=== PATIENT | male | born 1945 | race African-American/Black ===

== ENCOUNTER 2018-10-27 03:41 | Inpatient (IN) | payer MEDICARE, MEDICAID ==
[~2018-10-27] VITALS: Ht 185.4 cm; Wt 127.5 kg
[~2018-10-27 03:41] MED LIST: AMBIEN10 M1 ORAL; AMLODIPINE BESY10 MG; AMLODIPINE BESY10 MG ORAL; ASPIRIN EC81 MG; ASPIRIN-LOW81 MG ORAL; ATENOLOL100 MG; ATENOLOL25 MG ORAL; CARAFATE1 G1 ORAL; CYCLOBENZAPRINE10 MG ORAL; DEPAKOTE500 MG PO; DOC-Q-LACE100 M1; FLEXERIL10 MG PO; HYDROCODON-ACE1 EA16; HYTRIN1 MG; LYRICA25 MG ORAL; NATEGLINIDE60 MG; NEURONTIN100 MG ORAL; NEXIUM 24HR20 MG PO; NORCO 5-325 TA1 EAC1 ORAL; OMEPRAZOLE20 M2; PROTONIX40 MG ORAL; SEROQUEL25 MG ORAL; SIMVASTATIN20 MG; TENORMIN50 MG ORAL; TRAMADOL HCL50 MG; TRAMADOL HCL50 MG ORAL; UNOBMED; VITAMIN D1000 UNI1 ORAL; WELLBUTRIN XL150 M3 ORAL; ZOLPIDEM TARTRAT5 MG
[2018-10-27 03:45] VITALS: BP 132/82
--- NOTE | 2018-10-27 03:45 | NUR ---
ED Nurse Note: Patient virginia GORE from home c/o lower left groin pain that he rates 10/10 pain, states that this has been an on going issue for the past week, at time of arrival patient is already askign for pain medicine. patient was placed on a monitor and EKG did show a-fib with RVR. patient's rectal temp of 103.1, Dr. Parrish aware and notified. patient states that he is not able to to receive any motrin or tylenol due to the reactions that he gets. patient is alert and oriented x4, skin is intact IV started on left forearm 20 gauge
--- NOTE | 2018-10-27 03:50 | NUR ---
ED Nurse Note: Placed ice packs on patient
[2018-10-27] MEDS ORDERED: fentaNYL 100 mcg/2 mL IV ONE (04:00)
[2018-10-27] MEDS ORDERED: Isovue-370 150ml vial INJ PRN (04:00)
--- NOTE | 2018-10-27 04:03 | Emergency Room Report ---
History of Present Illness General Chief Complaint: Chest Pain Source: Patient Present Illness HPI 73-year-old male history of thoracic aneurysm repair history of hypertension, hyperlipidemia, CVA diabetes, drug-seeking behavior presents with sharp chest pain, abdominal pain right groin pain, patient states he cannot stand today due to the pain, patient was taking tramadol, he denies any shortness of breath, patient not able to give a proper history and regards to what kind of pain he has, he denies any fevers cough congestion, dysuria. Allergies: Coded Allergies: MORPHINE (Verified Allergy, Severe, 11/07/10) NITROGLYCERIN (Verified Allergy, Severe, 11/07/10) KETOROLAC (Unverified Allergy, Intermediate, 03/14/14) FISH CONTAINING PRODUCTS (Verified Allergy, Mild, 07/20/14) per patient, "it knocks me out" ACETAMINOPHEN (Unverified Allergy, Unknown, 07/19/14) CODEINE (Unverified Allergy, Unknown, 11/03/13) UNKNOWN DIPHENHYDRAMINE (Unverified Allergy, Unknown, 09/30/14) IBUPROFEN (Unverified Allergy, Unknown, 11/03/13) UNKNOWN PROCHLORPERAZINE (Unverified Allergy, Unknown, 07/19/14) GABAPENTIN (Verified Adverse Reaction, Intermediate, 07/20/14) Per patient, it makes him sweat, throws up, and "blacks out" Patient History Past Medical History: see triage record Reviewed Nursing Documentation: PMH: Agreed; PSxH: Agreed Nursing Documentation-PMH Past Medical History: No History, Except For Hx Hypertension: Yes Hx Pacemaker: No Hx Asthma: No Hx COPD: No Hx Diabetes: Yes Hx Cancer: No Hx Gastrointestinal Problems: No Hx Dialysis: No Hx Neurological Problems: No Hx Cerebrovascular Accident: Yes Hx Transient Ischemic Attacks: No Hx Dementia: No Hx Alzheimer's Disease: No Hx Parkinson's Disease: No Hx Meningitis: No Hx Encephalitis: No Hx Seizures: No Hx Epilepsy: No Hx Multiple Sclerosis: No Hx Cerebral Palsy: No Hx Amyotrophic Lat Sclerosis: No Hx Guillian-Dearborn Syndrome: No Hx Paralysis: No Hx Peripheral Neuropathy: No Hx Spinal Cord Injury: No Hx Head Trauma: No Hx Traumatic Brain Injury: No Hx Memory Loss: No Hx Concentration Difficulty: No Hx Speech Problem: No Hx Tremors: No Hx Vertigo: No Hx Dizziness: No Hx Syncope: No Hx Headaches: No Hx Aphasia: No Hx Dysphasia: No Hx Numbness: No Hx Weakness: No Hx Fatigue: No Hx Neurologic Surgery: No Hx Brain Shunt: No Review of Systems All Other Systems: negative except mentioned in HPI Physical Exam Vital Signs Date Time Temp Pulse Resp B/P (MAP) Pulse Ox O2 Delivery O2 Flow Rate FiO2 10/27/18 03:40 100.2 92 18 132/82 (99) 96 Room Air Sp02 EP Interpretation: reviewed, normal General Appearance: well appearing, no apparent distress, alert Head: normocephalic, atraumatic Eyes: bilateral eye PERRL, bilateral eye EOMI ENT: uvula midline, moist mucus membranes Neck: supple, thyroid normal, supple/symm/no masses Respiratory: lungs clear, no respiratory distress, no retraction, no accessory muscle use Cardiovascular #1: normal peripheral pulses, no edema, no gallop, no murmur, tachycardia, irregularly irregular Gastrointestinal: non tender, soft, no guarding, no rebound Musculoskeletal: normal inspection Neurologic: alert, oriented x3 Psychiatric: mood/affect normal Skin: no rash, warm/dry Procedures Critical Care Time Critical Care Time Given the critical condition in which the patient arrived, the patient was immediately assessed by myself and the nurse, and cardiac monitoring initiated due to the potential for rapid decompensation of the patient's clinical condition. During the course of the patient's stay, I spent a considerable amount of time at the bedside performing serial re-evaluations of the patient's hemodynamic and clinical status because of the recognized potential threat to life or limb in this condition. I then had a chance to review not only all of the available current laboratory and radiographic studies obtained today, but I also reviewed old records available to me at the time. Additionally, any ancillary information available including regenerator operator records were reviewed. Sequential vital signs were obtained. Patient with sepsis requiring fluid resuscitation and broad-spectrum antibiotics , patient also with elevated troponin aspirin given Critical Care time of 37 minutes was performed exclusive of billable procedures. Medical Decision Making Diagnostic Impression: Primary Impression: UTI (urinary tract infection) Qualified Codes: N30.00 - Acute cystitis without hematuria Additional Impressions: Sepsis Qualified Codes: A41.9 - Sepsis, unspecified organism Lactic acid acidosis NSTEMI (non-ST elevated myocardial infarction) Chest pain Qualified Codes: R07.9 - Chest pain, unspecified ER Course Patient found to be febrile in the ED, and tachycardic. Sepsis work-up was initiated, patient is a poor historian, difficult to ascertain whether he is having cardiac chest pain versus ACS, however patient has been pain for 24 hours straight, his first troponin is negative low suspicion for ACS, will obtain CTA abdomen and pelvis as well as chest to evaluate for intrathoracic and intra-abdominal pathology, patient does have a history of thoracic aneurysm repair however he also is known to have drug-seeking behavior. Patient is not requesting any particular pain medication at this moment. Patient looks uncomfortable, will evaluate for possible sepsis versus pneumonia versus ACS versus urosepsis. Troponin elevated aspirin given, most likely demand ischemia in the setting of heart disease. Patient with positive UTI, will treat for urosepsis, patient will be admitted to stepdown for elevated lactic acid, fluid resuscitation, cefepime vancomycin given, patient is allergic to Tylenol Laboratory Tests Test 10/27/18 03:52 10/27/18 04:05 10/27/18 05:20 White Blood Count 11.8 K/UL (4.8-10.8) H Red Blood Count 4.66 M/UL (4.70-6.10) L Hemoglobin 14.5 G/DL (14.2-18.0) Hematocrit 42.6 % (42.0-52.0) Mean Corpuscular Volume 91 FL (80-99) Mean Corpuscular Hemoglobin 31.0 PG (27.0-31.0) Mean Corpuscular Hemoglobin Concent 33.9 G/DL (32.0-36.0) Red Cell Distribution Width 11.9 % (11.6-14.8) Platelet Count 110 K/UL (150-450) L Mean Platelet Volume 7.8 FL (6.5-10.1) Neutrophils (%) (Auto) 77.7 % (45.0-75.0) H Lymphocytes (%) (Auto) 7.3 % (20.0-45.0) L Monocytes (%) (Auto) 14.3 % (1.0-10.0) H Eosinophils (%) (Auto) 0.0 % (0.0-3.0) Basophils (%) (Auto) 0.7 % (0.0-2.0) Prothrombin Time 11.8 SEC (9.30-11.50) H Prothrombin Time INR 1.1 (0.9-1.1) PTT 37 SEC (23-33) H Sodium Level 134 MMOL/L (136-145) L Potassium Level 3.8 MMOL/L (3.5-5.1) Chloride Level 100 MMOL/L (98-107) Carbon Dioxide Level 23 MMOL/L (21-32) Anion Gap 11 mmol/L (5-15) Blood Urea Nitrogen 20 mg/dL (7-18) H Creatinine 1.5 MG/DL (0.55-1.30) H Estimate Glomerular Filtration Rate mL/min (>60) Glucose Level 160 MG/DL (74-106) H Lactic Acid Level 2.50 mmol/L (0.4-2.0) H 2.90 mmol/L (0.66-2.22) H Calcium Level 9.3 MG/DL (8.5-10.1) Phosphorus Level 1.6 MG/DL (2.5-4.9) L Magnesium Level 1.6 MG/DL (1.8-2.4) L Total Bilirubin 3.7 MG/DL (0.2-1.0) H Direct Bilirubin 0.8 MG/DL (0.0-0.3) H Aspartate Amino Transferase (AST) 64 U/L (15-37) H Alanine Aminotransferase (ALT) 71 U/L (12-78) Alkaline Phosphatase 75 U/L (46-116) Total Creatine Kinase 363 U/L (26-308) H Creatine Kinase MB 1.2 NG/ML (0.0-3.6) Creatine Kinase MB Relative Index 0.3 Troponin I 0.151 ng/mL (0.000-0.056) Pro-B-Type Natriuretic Peptide 1197 pg/mL (0-125) H Total Protein 7.4 G/DL (6.4-8.2) Albumin 3.4 G/DL (3.4-5.0) Globulin 4.0 g/dL Albumin/Globulin Ratio 0.9 (1.0-2.7) L Lipase 63 U/L (73-393) L Urine Color Yellow Urine Appearance Slightly cloudy Urine pH 5 (4.5-8.0) Urine Specific [place] 1.025 (1.005-1.035) Urine Protein 2+ (NEGATIVE) H Urine Glucose (UA) Negative (NEGATIVE) Urine Ketones 1+ (NEGATIVE) H Urine Blood 4+ (NEGATIVE) H Urine Nitrite Positive (NEGATIVE) H Urine Bilirubin 1+ (NEGATIVE) H Urine Ictotest Positive (NEGATIVE) Urine Urobilinogen 8 MG/DL (0.0-1.0) H Urine Leukocyte Esterase 1+ (NEGATIVE) H Urine RBC 5-10 /HPF (0 - 0) H Urine WBC 0-2 /HPF (0 - 0) Urine Squamous Epithelial Cells None /LPF (NONE/OCC) Urine Bacteria None /HPF (NONE) Microbiology Date/Time Source Procedure Growth Status 10/27/18 04:15 Nasal Nares - Final Complete 10/27/18 04:15 Nasal Nares - Final Complete EKG Diagnostic Results EKG Time: 03:51 EP Interpretation: Atrial fibrillation, rate 108, QTc 455, no acute ST elevations, left axis Rate: tachycardiac Rhythm: other - Atrial fibrillation ST Segments: other - Flipped T waves 1 aVL Rhythm Strip Diag. Results Rhythm Strip Time: 04:09 EP Interpretation: yes Rate: 98 Rhythm: other - Atrial fibrillation Chest X-Ray Diagnostic Results Chest X-Ray Diagnostic Results : Chest X-Ray Ordered: Yes # of Views/Limited/Complete: 1 View Indication: Chest Pain EP Interpretation: Yes Interpretation: no acute cardiopulmonary disease, other - Comparison unchanged Impression: No acute disease Electronically Signed by: Nolberto Dodd MD CT/MRI/US Diagnostic Results CT/MRI/US Diagnostic Results : Impression Preliminary Findings Only See Final Report For Complete Findings CTA CHEST: Postsurgical changes from a tube graft repair of the ascending aorta. Trace adjacent fat stranding/scarring which is favored postsurgical. Status post endovascular stenting of the descending thoracic aortic aneurysm measuring 5.6 cm. No dissection or penetrating ulcer. No pulmonary embolism. Status post aortic valve replacement. The lungs are clear. No pleural effusion. CT ABDOMEN & PELVIS With Contrast: Note that the pelvis was excluded. Only the abdomen was imaged. Ectatic upper abdominal aorta which measures 3.7 cm prior to the celiac takeoff. No dissection. The branch vessels are widely patent. No acute process along the visualized GI tract. Normal appendix. Mild colonic diverticulosis without diverticulitis. No acute process in the solid organs. Radiologist: Diaz Camarillo MD Study ready at 06:31 and initial results transmitted at 06:41 Last Vital Signs Date Time Temp Pulse Resp B/P (MAP) Pulse Ox O2 Delivery O2 Flow Rate FiO2 10/27/18 03:40 100.2 92 18 132/82 (99) 96 Room Air Disposition: ADMITTED INPATIENT Condition: Stable Nolberto Dodd MD Oct 27, 2018 04:03
[2018-10-27 04:11] LABS: BASOPHILS % (AUTO) 0.7 % (0.0-2.0); HEMATOCRIT 42.6 % (42.0-52.0); HEMOGLOBIN 14.5 G/DL (14.2-18.0); LYMPHOCYTES % (AUTO) 7.3 % (20.0-45.0); MEAN CORPUSCULAR VOLUME 91 FL (80-99); MONOCYTES % (AUTO) 14.3 % (1.0-10.0); NEUTROPHILS % (AUTO) 77.7 % (45.0-75.0); PLATELET COUNT 110 K/UL (150-450); RED BLOOD COUNT 4.66 M/UL (4.70-6.10); RED CELL DISTRIBUTION WIDTH 11.9 % (11.6-14.8); WHITE BLOOD COUNT 11.8 K/UL (4.8-10.8)
[2018-10-27 04:14] LABS: APPEARANCE,URINE SLIGHTLY CLOUDY; BILIRUBIN, URINE 1+ (NEGATIVE); GLUCOSE, URINE (UA) NEGATIVE (NEGATIVE); KETONES,URINE 1+ (NEGATIVE); LEUKOCYTE ESTERASE ,URINE 1+ (NEGATIVE); NITRITE,URINE POSITIVE (NEGATIVE); PH,URINE 5 (4.5-8.0); PROTEIN,URINE 2+ (NEGATIVE); UROBILINOGEN,URINE 8 MG/DL (0.0-1.0)
[2018-10-27] MEDS ORDERED: Vancomycin 1.5 GM in NS 275 ML IVPB ONE (04:15)
[2018-10-27] MEDS ORDERED: Cefepime HCl 2 GM in D5W 55 ML IVPB ONE (04:15)
[2018-10-27 04:18] LABS: ANION GAP 11 mmol/L (5-15); BLOOD UREA NITROGEN 20 mg/dL (7-18); CALCIUM 9.3 MG/DL (8.5-10.1); CARBON DIOXIDE 23 MMOL/L (21-32); CHLORIDE 100 MMOL/L (98-107); CREATININE 1.5 MG/DL (0.55-1.30); INR 1.1 (0.9-1.1); POTASSIUM 3.8 MMOL/L (3.5-5.1); SODIUM 134 MMOL/L (136-145)
[2018-10-27 04:18] LABS: COLOR,URINE YELLOW
--- NOTE | 2018-10-27 04:30 | NUR ---
ED Nurse Note: Patient repeatedly asking for dilaudid, states that the fentanyl did not take effect
[2018-10-27 04:43] LABS: ALANINE AMINOTRANSFERASE 71 U/L (12-78); ALBUMIN 3.4 G/DL (3.4-5.0); ALBUMIN/GLOBULIN RATIO 0.9 (1.0-2.7); ALKALINE PHOSPHATASE 75 U/L (46-116); ASPARTATE AMINO TRANSFERASE 64 U/L (15-37); BILIRUBIN,TOTAL 3.7 MG/DL (0.2-1.0); CKMB 1.2 NG/ML (0.0-3.6); CREATINE KINASE 363 U/L (26-308); PHOSPHORUS 1.6 MG/DL (2.5-4.9)
[2018-10-27 04:49] LABS: BILIRUBIN,DIRECT 0.8 MG/DL (0.0-0.3)
[2018-10-27] MEDS ORDERED: Hydromorphone 0.5mg/0.5ml inj IVP ONE (05:30)
--- NOTE | 2018-10-27 05:30 | NUR ---
ED Nurse Note: Patient repeatedly asking for dilaudid, Dr. Dodd aware and notified
[2018-10-27 05:41] VITALS: BP 141/89
--- NOTE | 2018-10-27 05:41 | NUR ---
ED Nurse Note: Rectal temp of 102.5, Dr. Dodd aware and notified
--- NOTE | 2018-10-27 07:02 | Diagnostic Imaging Report ---
CLINICAL INDICATION: TECHNIQUE: IV administration nonionic contrast. Arterial phase and delayed venous phase spiral acquisitions obtained through the chest and abdomen. Multiplanar and 3-D reconstructions were generated. Total dose length product 2958 mGycm. CTDIvol(s) 12, 378, 33, 20 mGy. Radiation dose was minimized using automated exposure control Note that request was for CT of the chest, abdomen and pelvis. For uncertain reasons, the pelvis was not included in the imaging volume. Attempts were made recalling the patient but the patient had already left the emergency department COMPARISON: 03/14/2014 FINDINGS Chest: Contrast bolus quality is suboptimal; technologist reports injector malfunction. There is a thoracic aortic endograft extending from the arch just distal to the subclavian artery origin to the mid to distal thoracic aorta. Material surrounding the endograft appears similar to the prior exam, probably represents the residual of the excluded aneurysm. There is also evidence of prior surgical ascending thoracic aortic aneurysm repair as well as an aortic valve prosthesis. The ascending thoracic aorta is normal and unchanged in caliber. The grafted portion of the thoracic aorta appears dilated, more so than on the previous exam, measuring up to 5 cm in diameter, despite the presence of the endograft which appears to be intact. The caliber however appears to be similar to the prior study. Material seen surrounding the ascending thoracic aorta appears similar to the previous exam. No findings to suggest endoleak. There is normal anatomy of the great neck vessels, which appear patent and nonstenotic. The main pulmonary artery is dilated, measuring 4 cm in diameter. The left main pulmonary artery is also dilated, measuring 3.3 cm in diameter. The heart is borderline enlarged. The pulmonary arteries are insufficiently opacified to comment exclude pulmonary embolus. The lungs demonstrate generalized mild hazy parenchymal opacity. There is also centrilobular interstitial septal thickening in the upper lobes. Some scarring is also again demonstrated in the bilateral upper lobes. There is increased scarring in the inferomedial left upper lobe. No discrete consolidation. No masses or nodules. No pleural fluid is demonstrated. The heart size is upper limits of normal. No pericardial effusion. There are prominent but not frankly enlarged mediastinal nodes, unchanged from the prior exam. No axillary or chest wall mass or adenopathy. The included portion of the thyroid is unremarkable. Abdomen pelvis: No evidence of abdominal aortic aneurysm or dissection. Patent and nonstenotic abdominal visceral vessels. There is an accessory right renal artery. The liver is somewhat hypoattenuating, consistent with fatty change. There are multiple capsular calcifications. The gallbladder, bile ducts, pancreas, spleen, adrenals are unremarkable. The left kidney demonstrates an interpolar region cyst. The right kidney demonstrates subcentimeter low-attenuation lesions which are too small to characterize. No retroperitoneal or mesenteric mass or adenopathy. No bowel distention. No free or loculated intraperitoneal gas or fluid is evident. IMPRESSION: Somewhat limited exam due to lack of inclusion of the pelvis within the imaging volume Postsurgical changes, status post surgical repair of the ascending thoracic aorta, status post stent graft repair of descending thoracic aorta. No evidence of leakage for rupture No acute abnormality Dilated main and left main pulmonary artery, consistent with pulmonary arterial hypertension Mild hazy pulmonary opacity and centrilobular interstitial septal thickening in the upper lobes, could indicate mild pulmonary edema Fatty liver Incidental findings as noted, including hepatic capsular calcifications, left renal cysts, probable small right renal cysts This agrees with the preliminary interpretation provided overnight by [facility] teleradiology service. The CT scanner at [facility] is accredited by the [employer] and the scans are performed using protocols designed to limit radiation exposure to as low as reasonably achievable to attain images of sufficient resolution adequate for diagnostic evaluation.
--- NOTE | 2018-10-27 07:22 | NUR ---
HAND-OFF: Report given to Donnie Alexander RN.
--- NOTE | 2018-10-27 07:26 | NUR ---
ED Nurse Note: temp 99.2F oral noted.
[2018-10-27] MEDS ORDERED: ELIQUIS5 MG PO (07:31)
--- NOTE | 2018-10-27 07:33 | NUR ---
NURSE NOTES: Received report from Sandra BOLAND. pt will be admitted to room 239-2. A/Ox4 RA 103.1 down to 98.2, ambulatory. uses urinal Lt FA 20G. reflex lactic 2.90, trop 0.151. belongings remain with pt.
--- NOTE | 2018-10-27 07:38 | NUR ---
ED Nurse Note: report given to KRYSTIAN Harley.
--- NOTE | 2018-10-27 07:42 | NUR ---
ED Nurse Note: pt left unit with 1 pulmonary function technician and in RN in stable condition.
--- NOTE | 2018-10-27 07:45 | NUR ---
NURSE NOTES: Pt siting up in bed. Patient is awake and oriented x4. Patient HOB30 on RA sating 96%. BP 117/66, HR 102, TEMP 101.7 Lungs clear. no cough. Abdomen large round, hypoactive bowel sounds. no bm at this time. Pt NPO. pt uses urinal. IV site is Lt Ac 20g, patent and intact ns at 125ml/hr. pt c/o pain 10/10 at rupper ribs and right hip. requesting pain medication. Bed is locked, in lowest position, side rails up x3, bed alarm on, call light within reach.
[2018-10-27] MEDS ORDERED: Hydromorphone 0.5mg/0.5ml inj IVP PRN ×2 (09:36→10:30)
--- NOTE | 2018-10-27 09:54 | NUR ---
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
[2018-10-27] MEDS ORDERED: HYDROmorphone 1mg/ml Carpuject IVP PRN (10:22)
[2018-10-27] MEDS ORDERED: dilTIAZem HCl 25mg/5ml Inj IV PRN (10:45)
[2018-10-27] MEDS ORDERED: Enalaprilat 1.25mg/ml Inj IV PRN (10:45)
[2018-10-27] MEDS ORDERED: Albuterol/Ipratropium 3ml neb HHN PRN (10:45)
[2018-10-27] MEDS ORDERED: Miralax 17gm pkt ORAL PRN (10:45)
--- NOTE | 2018-10-27 10:50 | NUR ---
NURSE NOTES: here to do 2Decho
[2018-10-27] MEDS: HYDROmorphone 1mg/ml Carpuject IVP PRN ×3 (10:53→20:15)
--- NOTE | 2018-10-27 10:57 | Consultation ---
History of Present Illness General Date patient seen: Oct 27, 2018 Chief Complaint: Chest Pain Present Illness HPI 73 -year-old gentleman with extensive past medical history including CVA, open heart surgery, repair of aortic aneurysm, aortic valve replacement laminectomy, and left knee replacement. The patient presented to the emergency room complaining of episode of chest pain and right hip pain. Allergies: Coded Allergies: MORPHINE (Verified Allergy, Severe, 11/07/10) NITROGLYCERIN (Verified Allergy, Severe, 11/07/10) KETOROLAC (Unverified Allergy, Intermediate, 03/14/14) FISH CONTAINING PRODUCTS (Verified Allergy, Mild, 07/20/14) per patient, "it knocks me out" ACETAMINOPHEN (Unverified Allergy, Unknown, 07/19/14) CODEINE (Unverified Allergy, Unknown, 11/03/13) UNKNOWN DIPHENHYDRAMINE (Unverified Allergy, Unknown, 09/30/14) IBUPROFEN (Unverified Allergy, Unknown, 11/03/13) UNKNOWN PROCHLORPERAZINE (Unverified Allergy, Unknown, 07/19/14) GABAPENTIN (Verified Adverse Reaction, Intermediate, 07/20/14) Per patient, it makes him sweat, throws up, and "blacks out" Medication History Scheduled Amlodipine Besylate* (Amlodipine Besylate*), 10 MG ORAL DAILY, (Reported) Aspirin (Aspirin EC), 81 MG ORAL DAILY, (Reported) Atenolol* (Tenormin*), 50 MG ORAL BID Divalproex Sodium (Depakote), 500 MG PO BID Quetiapine Fumarate* (Seroquel*), 25 MG ORAL BID Scheduled PRN Tramadol Hcl* (Ultram*), 100 MG ORAL Q6H PRN for For Pain Zolpidem Tartrate* (Zolpidem Tartrate*), HS PRN for Insomnia, (Reported) Zolpidem Tartrate* (Ambien*), 10 MG ORAL HS PRN for Insomnia, (Reported) Miscellaneous Medications Apixaban (Eliquis), 5 MG PO, (Reported) Esomeprazole Magnesium (Nexium 24Hr), 20 MG PO, (Reported) Patient History Healthcare decision maker Resuscitation status Advanced Directive on File Past Medical/Surgical History Past Medical/Surgical History: (1) Aortic valve disorder (2) Cervical disc disorder w/myelopathy of dlmktatq-nizsned-zklaq region (3) Thalamic pain syndrome (4) CAD (coronary artery disease) (5) HTN (hypertension) (6) CVA (cerebral vascular accident) (7) 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 (8) S/P aortic valve replacement Review of Systems All Other Systems: negative except mentioned in HPI Physical Exam General Appearance: WD/WN Lines, tubes and drains: peripheral, central line HEENT: normocephalic, atraumatic Neck: non-tender, normal alignment Respiratory/Chest: chest wall non-tender, lungs clear Breasts: no masses Cardiovascular/Chest: normal peripheral pulses Abdomen: normal bowel sounds, non tender Genitourinary/Rectal: normal genital exam Extremities: normal range of motion, non-tender 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, no motor/sensory deficits Last 24 Hour Vital Signs Date Time Temp Pulse Resp B/P (MAP) Pulse Ox O2 Delivery O2 Flow Rate FiO2 10/27/18 07:42 99.2 98 18 116/82 Room Air 10/27/18 05:41 102.5 105 18 141/89 96 Room Air 10/27/18 04:31 102.5 10/27/18 04:31 102.5 10/27/18 03:45 92 18 Room Air 10/27/18 03:45 103.1 105 18 132/82 96 Room Air 10/27/18 03:40 100.2 92 18 132/82 (99) 96 Room Air Intake and Output 10/26/18 10/27/18 19:00 07:00 Intake Total 275 ml Balance 275 ml Intake IV Total 275 ml Laboratory Tests Test 10/27/18 03:52 10/27/18 04:05 10/27/18 05:20 White Blood Count 11.8 K/UL (4.8-10.8) H Red Blood Count 4.66 M/UL (4.70-6.10) L Hemoglobin 14.5 G/DL (14.2-18.0) Hematocrit 42.6 % (42.0-52.0) Mean Corpuscular Volume 91 FL (80-99) Mean Corpuscular Hemoglobin 31.0 PG (27.0-31.0) Mean Corpuscular Hemoglobin Concent 33.9 G/DL (32.0-36.0) Red Cell Distribution Width 11.9 % (11.6-14.8) Platelet Count 110 K/UL (150-450) L Mean Platelet Volume 7.8 FL (6.5-10.1) Neutrophils (%) (Auto) 77.7 % (45.0-75.0) H Lymphocytes (%) (Auto) 7.3 % (20.0-45.0) L Monocytes (%) (Auto) 14.3 % (1.0-10.0) H Eosinophils (%) (Auto) 0.0 % (0.0-3.0) Basophils (%) (Auto) 0.7 % (0.0-2.0) Prothrombin Time 11.8 SEC (9.30-11.50) H Prothromb Time International Ratio 1.1 (0.9-1.1) Activated Partial Thromboplast Time 37 SEC (23-33) H Sodium Level 134 MMOL/L (136-145) L Potassium Level 3.8 MMOL/L (3.5-5.1) Chloride Level 100 MMOL/L (98-107) Carbon Dioxide Level 23 MMOL/L (21-32) Anion Gap 11 mmol/L (5-15) Blood Urea Nitrogen 20 mg/dL (7-18) H Creatinine 1.5 MG/DL (0.55-1.30) H Estimat Glomerular Filtration Rate mL/min (>60) Glucose Level 160 MG/DL (74-106) H Lactic Acid Level 2.50 mmol/L (0.4-2.0) H 2.90 mmol/L (0.66-2.22) H Calcium Level 9.3 MG/DL (8.5-10.1) Phosphorus Level 1.6 MG/DL (2.5-4.9) L Magnesium Level 1.6 MG/DL (1.8-2.4) L Total Bilirubin 3.7 MG/DL (0.2-1.0) H Direct Bilirubin 0.8 MG/DL (0.0-0.3) H Aspartate Amino Transf (AST/SGOT) 64 U/L (15-37) H Alanine Aminotransferase (ALT/SGPT) 71 U/L (12-78) Alkaline Phosphatase 75 U/L (46-116) Total Creatine Kinase 363 U/L (26-308) H Creatine Kinase MB 1.2 NG/ML (0.0-3.6) Creatine Kinase MB Relative Index 0.3 Troponin I 0.151 ng/mL (0.000-0.056) Pro-B-Type Natriuretic Peptide 1197 pg/mL (0-125) H Total Protein 7.4 G/DL (6.4-8.2) Albumin 3.4 G/DL (3.4-5.0) Globulin 4.0 g/dL Albumin/Globulin Ratio 0.9 (1.0-2.7) L Lipase 63 U/L (73-393) L Urine Color Yellow Urine Appearance Slightly cloudy Urine pH 5 (4.5-8.0) Urine Specific [place] 1.025 (1.005-1.035) Urine Protein 2+ (NEGATIVE) H Urine Glucose (UA) Negative (NEGATIVE) Urine Ketones 1+ (NEGATIVE) H Urine Blood 4+ (NEGATIVE) H Urine Nitrite Positive (NEGATIVE) H Urine Bilirubin 1+ (NEGATIVE) H Urine Ictotest Positive (NEGATIVE) Urine Urobilinogen 8 MG/DL (0.0-1.0) H Urine Leukocyte Esterase 1+ (NEGATIVE) H Urine RBC 5-10 /HPF (0 - 0) H Urine WBC 0-2 /HPF (0 - 0) Urine Squamous Epithelial Cells None /LPF (NONE/OCC) Urine Bacteria None /HPF (NONE) Microbiology Date/Time Source Procedure Growth Status 10/27/18 04:15 Nasal Nares - Final Complete 10/27/18 04:15 Nasal Nares - Final Complete Height (Feet): 6 Height (Inches): 1.00 Weight (Pounds): 250 Medications Current Medications Medications (Trade) Dose Ordered Sig/Sheba Route PRN Reason Start Time Stop Time Status Last Admin Dose Admin Albuterol/ Ipratropium (Albuterol/ Ipratropium) 3 ml EVERY 4 HOURS PRN HHN Shortness of Breath 10/27/18 10:45 11/01/18 10:44 UNV Amlodipine Besylate (Norvasc) 10 mg DAILY ORAL 10/28/18 09:00 11/27/18 08:59 Apixaban (Eliquis) 5 mg BID ORAL 10/27/18 18:00 11/26/18 17:59 Atenolol (Tenormin) 50 mg BID ORAL 10/27/18 18:00 11/26/18 17:59 Diltiazem HCl (Cardizem) 10 mg EVERY HOUR PRN IV heart rate more than 120, 10/27/18 10:45 11/26/18 10:44 UNV Divalproex Sodium (Depakote) 500 mg Q12HR ORAL 10/27/18 21:00 11/26/18 20:59 Enalaprilat (Vasotec) 2.5 mg EVERY 6 HOURS PRN IV sbp more than 160 10/27/18 10:45 11/26/18 10:44 UNV Hydromorphone HCl (Dilaudid) 0.5 mg Q4H PRN IVP MODERATE PAIN 10/27/18 10:30 11/03/18 09:35 Hydromorphone HCl (Dilaudid) 1 mg Q4H PRN IVP SEVERE PAIN 10/27/18 10:30 11/03/18 10:21 Iopamidol (Isovue-370 150ml) 150 ml NOW PRN INJ Radiology Procedure 10/27/18 04:00 Ondansetron HCl (Zofran) 4 mg Q6H PRN IVP Nausea & Vomiting 10/27/18 10:45 11/26/18 10:44 UNV Polyethylene Glycol (Miralax) 17 gm DAILYPRN PRN ORAL Constipation 10/27/18 10:45 11/26/18 10:44 UNV Sodium Chloride 1,000 ml @ 125 mls/hr Q8H IV 10/27/18 06:15 11/26/18 06:14 10/27/18 07:15 Temazepam (Restoril) 15 mg HSPRN PRN ORAL Insomnia 10/27/18 10:45 11/03/18 10:44 UNV Assessment/Plan Problem List: (1) Acute coronary syndrome ICD Codes: I20.0 - Unstable angina SNOMED: 656577515 (2) HTN (hypertension) ICD Codes: I10 - HTN (hypertension) SNOMED: 48550357 (3) CAD (coronary artery disease) ICD Codes: I25.10 - Athscl heart disease of [place] coronary artery w/o ang pctrs SNOMED: 87493273 (4) Aortic valve disorder ICD Codes: I35.9 - Nonrheumatic aortic valve disorder, unspecified SNOMED: 5322407 (5) H/O aortic valve replacement ICD Codes: Z95.4 - H/O aortic valve replacement SNOMED: 082509281 (6) Thalamic pain syndrome ICD Codes: G89.0 - Thalamic pain syndrome SNOMED: 166568971 Assessment/Plan: serial ekg, troponin echo cardiogram cardiology to see MRI of L spine MRI of right hip continue Apixaban Melinda Rutledge MD Oct 27, 2018 10:57
--- NOTE | 2018-10-27 11:30 | NUR ---
NURSE NOTES: Received order from MD Rutledge to give ativan, Dilaudid 1x dose for MRI and off tele orders.
[2018-10-27] MEDS ORDERED: LORazepam Inj 2mg/ml 1ml IV SCH (11:45)
[2018-10-27] MEDS ORDERED: HYDROmorphone 1mg/ml Carpuject IVP SCH (11:45)
--- NOTE | 2018-10-27 12:00 | NUR ---
NURSE NOTES: Patient is awake and oriented x4. Patient HOB30 on RA sating 99%. BP 121/69, HR 76, TEMP 98.7 Lungs clear. no cough. Abdomen large round, hypoactive bowel sounds. no bm at this time. regular diet pt uses urinal. IV site is Lt Ac 20g, patent and intact ns at 125ml/hr. pt c/o pain 7/10 at rupper ribs and right hip. requesting pain medication. Bed is locked, in lowest position, side rails up x3, bed alarm on, call light within reach.
--- NOTE | 2018-10-27 12:10 | NUR ---
NURSE NOTES: pt off unit to MRI, premedicated, refused ativan
--- NOTE | 2018-10-27 13:47 | NUR ---
MRI RIGHT HIP COMPLETED. PT WAS TOO TIGHTLY SQUEEZED INTO BORE OF MRI SCANNER FOR MRI LUMBAR (PT IS VERY WIDE AND CAN'T BEND HIS ARMS STRAIGHT UP AND OUT) AND DID NOT WANT TO START EXAM. HE MAY TRY TO TOLERATE EXAM IF HE GETS VERY SEDATED, BUT HE REFUSES ATIVAN. TJB 13:50
--- NOTE | 2018-10-27 14:53 | History & Physical ---
History and Physical History & Physicial Tao Marcial MD Oct 27, 2018 14:53
--- NOTE | 2018-10-27 15:22 | Diagnostic Imaging Report ---
Indication: Chest pain for one day Technique: One view of the chest Comparison: 01/20/2016 Findings: Thoracic aortic endograft and median sternotomy sutures are again demonstrated. The heart is borderline enlarged. The lungs and pleural spaces are clear. Better inspiration currently Impression: Borderline cardiomegaly. Thoracic endograft again demonstrated No definite acute process
[2018-10-27] MEDS ORDERED: Vancomycin 1.5gm Premix IVPB SCH (16:00)
--- NOTE | 2018-10-27 16:00 | NUR ---
NURSE NOTES: Pt siting up in bed. Patient is awake and oriented x4. Patient HOB30 on RA sating 96%. BP 118/61, HR 70, TEMP 99.7. no bm at this time. IV site is Lt Ac 20g, patent and intact ns at 125ml/hr. would like to get some rest. Bed is locked. bed alarm on, call light within reach.
[2018-10-27] MEDS: Cefepime HCl 1 GM in D5W 55 ML IVPB SCH (16:05)
--- NOTE | 2018-10-27 16:30 | Diagnostic Imaging Report ---
Indication: Back pain Technique: 3 views of the lumbar spine Comparison: None Findings: Contrast is seen within the bladder from recent CT scan. Bony alignment is normal. Vertebral body heights are preserved. Disc spaces are preserved. There are proliferative changes at the lumbosacral junction. No acute fractures. No dislocations. Impression: No acute process Mild degenerative changes
--- NOTE | 2018-10-27 17:10 | Diagnostic Imaging Report ---
Indication: Chronic right hip pain Technique: Bilateral coronal and axial T1 fast spin-echo, bilateral coronal and axial fast spin-echo IR, coronal, sagittal, and oblique proton-density fat-saturated images of the right hip Comparison: none Findings: Normal marrow signal. No evidence of fracture. No dislocations. There is suggestion of slight osteoarthritic changes of the right hip. No evidence of bursitis. The stranding soft tissues are unremarkable. There is incidental finding of a small fat-containing right inguinal hernia and colonic diverticulosis. Impression: Mild degenerative changes of the right hip. No acute or significant osseous or joint abnormality otherwise. Incidental findings of small fat-containing right hernia and colonic diverticulosis This agrees with the preliminary interpretation provided by Dr. Pickard
[2018-10-27] MEDS: Eliquis 5mg tablet ORAL SCH (18:16)
--- NOTE | 2018-10-27 18:55 | NUR ---
NURSE NOTES: md andino here to see pt.
--- NOTE | 2018-10-27 19:19 | Cardiology Progress Note ---
Assessment/Plan Assessment/Plan full ntoe dicated his cp atypic l trop with out peak or rob so far will be repeated [facility] a showed ctca with mild plaque in lad 02/[address] changes echo prelim neg ekg c/w mat repeat trop and ekg pt usually followed by dr sung who will return on sat and will resuem his care at that time [id number] Objective Last 24 Hour Vital Signs Date Time Temp Pulse Resp B/P (MAP) Pulse Ox O2 Delivery O2 Flow Rate FiO2 10/27/18 18:17 92 121/63 10/27/18 16:00 104 10/27/18 16:00 Room Air 10/27/18 12:00 Room Air 10/27/18 11:28 108 10/27/18 10:00 104 10/27/18 09:50 Room Air 10/27/18 07:42 99.2 98 18 116/82 Room Air 10/27/18 05:41 102.5 105 18 141/89 96 Room Air 10/27/18 04:31 102.5 10/27/18 04:31 102.5 10/27/18 03:45 92 18 Room Air 10/27/18 03:45 103.1 105 18 132/82 96 Room Air 10/27/18 03:40 100.2 92 18 132/82 (99) 96 Room Air Intake and Output 10/26/18 10/27/18 19:00 07:00 Intake Total 275 ml Balance 275 ml Intake IV Total 275 ml Laboratory Tests Test 10/27/18 03:52 10/27/18 04:05 10/27/18 05:20 10/27/18 12:00 White Blood Count 11.8 K/UL (4.8-10.8) H Red Blood Count 4.66 M/UL (4.70-6.10) L Hemoglobin 14.5 G/DL (14.2-18.0) Hematocrit 42.6 % (42.0-52.0) Mean Corpuscular Volume 91 FL (80-99) Mean Corpuscular Hemoglobin 31.0 PG (27.0-31.0) Mean Corpuscular Hemoglobin Concent 33.9 G/DL (32.0-36.0) Red Cell Distribution Width 11.9 % (11.6-14.8) Platelet Count 110 K/UL (150-450) L Mean Platelet Volume 7.8 FL (6.5-10.1) Neutrophils (%) (Auto) 77.7 % (45.0-75.0) H Lymphocytes (%) (Auto) 7.3 % (20.0-45.0) L Monocytes (%) (Auto) 14.3 % (1.0-10.0) H Eosinophils (%) (Auto) 0.0 % (0.0-3.0) Basophils (%) (Auto) 0.7 % (0.0-2.0) Prothrombin Time 11.8 SEC (9.30-11.50) H Prothromb Time International Ratio 1.1 (0.9-1.1) Activated Partial Thromboplast Time 37 SEC (23-33) H Sodium Level 134 MMOL/L (136-145) L Potassium Level 3.8 MMOL/L (3.5-5.1) Chloride Level 100 MMOL/L (98-107) Carbon Dioxide Level 23 MMOL/L (21-32) Anion Gap 11 mmol/L (5-15) Blood Urea Nitrogen 20 mg/dL (7-18) H Creatinine 1.5 MG/DL (0.55-1.30) H Estimat Glomerular Filtration Rate mL/min (>60) Glucose Level 160 MG/DL (74-106) H Lactic Acid Level 2.50 mmol/L (0.4-2.0) H 2.90 mmol/L (0.66-2.22) H Calcium Level 9.3 MG/DL (8.5-10.1) Phosphorus Level 1.6 MG/DL (2.5-4.9) L Magnesium Level 1.6 MG/DL (1.8-2.4) L Total Bilirubin 3.7 MG/DL (0.2-1.0) H Direct Bilirubin 0.8 MG/DL (0.0-0.3) H Aspartate Amino Transf (AST/SGOT) 64 U/L (15-37) H Alanine Aminotransferase (ALT/SGPT) 71 U/L (12-78) Alkaline Phosphatase 75 U/L (46-116) Total Creatine Kinase 363 U/L (26-308) H Creatine Kinase MB 1.2 NG/ML (0.0-3.6) Creatine Kinase MB Relative Index 0.3 Troponin I 0.151 ng/mL (0.000-0.056) 0.152 ng/mL (0.000-0.056) Pro-B-Type Natriuretic Peptide 1197 pg/mL (0-125) H Total Protein 7.4 G/DL (6.4-8.2) Albumin 3.4 G/DL (3.4-5.0) Globulin 4.0 g/dL Albumin/Globulin Ratio 0.9 (1.0-2.7) L Lipase 63 U/L (73-393) L Urine Color Yellow Urine Appearance Slightly cloudy Urine pH 5 (4.5-8.0) Urine Specific [place] 1.025 (1.005-1.035) Urine Protein 2+ (NEGATIVE) H Urine Glucose (UA) Negative (NEGATIVE) Urine Ketones 1+ (NEGATIVE) H Urine Blood 4+ (NEGATIVE) H Urine Nitrite Positive (NEGATIVE) H Urine Bilirubin 1+ (NEGATIVE) H Urine Ictotest Positive (NEGATIVE) Urine Urobilinogen 8 MG/DL (0.0-1.0) H Urine Leukocyte Esterase 1+ (NEGATIVE) H Urine RBC 5-10 /HPF (0 - 0) H Urine WBC 0-2 /HPF (0 - 0) Urine Squamous Epithelial Cells None /LPF (NONE/OCC) Urine Bacteria None /HPF (NONE) Microbiology Date/Time Source Procedure Growth Status 10/27/18 04:15 Nasal Nares - Final Complete 10/27/18 04:15 Nasal Nares - Final Complete Isauro Palacio MD Oct 27, 2018 19:19
--- NOTE | 2018-10-27 19:20 | NUR ---
NURSE NOTES: Received patient from KRYSTIAN Harley. patient is observed resting in bed, arousable to voice, AO X4. patient is on room air, no s/sx of respiratory distress noted at this time. urinal at bedside. IV site is patent and intact, running fluids at prescribed rate. bed in lowest position and locked, siderails up X3, call light within reach. will continue to monitor.
--- NOTE | 2018-10-27 19:25 | NUR ---
HAND-OFF: Report given to wan BOLAND. pt in no acute distress.
[2018-10-27 20:00] VITALS: BP 129/75
[2018-10-27] MEDS: Depakote 500mg tab ORAL SCH (20:14)
[2018-10-27] MEDS ORDERED: Heparin 5000 units/ml inj SUBQ SCH (21:00)
--- NOTE | 2018-10-27 23:15 | Consultation ---
DATE OF CONSULTATION: 10/27/2018 CARDIOLOGY CONSULTATION CONSULTING PHYSICIAN: Isauro Palacio M.D. REFERRING PHYSICIAN: Tao Marcial M.D. REASON FOR REFERRAL: Abnormal cardiac enzymes. HISTORY OF PRESENT ILLNESS: This is an elderly male who has been followed by Dr. Karyna Wheatley and Dr. Juan Carlos Craven. The patient has been admitted to [facility] on several occasions, which I took some of the information from as well as his recent hospitalization here at [facility]. His presentation to the emergency room was because of sharp pains in the chest and abdominal pain and the right groin pain coming from the back. The right groin pain from the back has been going on for approximately a couple of days. He states he has had a hard time moving. He does have occasional chest pains that he is really not able to describe the duration or relieving or exacerbating factors or character of the pain. He does not think that the pain is activity induced. He has some shortness of breath. He really cannot tell the shortness of breath is only with exertion or at rest. He uses two pillows. He has occasional dizziness on standing. Denies any palpitations. PAST MEDICAL HISTORY: Coming from [facility] as follows. He has had a diagnosis of abnormal cardiac enzymes back in February 2018 at which time he underwent a CT coronary angiography. In February 2018, it showed mild to 20 to 25%. He had history of paroxysmal episodes of atrial fibrillation and ablation. He had a left knee pain, status post revision and total knee replacement, screw removal in June 2018, essential hypertension, aortic valve replacement, pain disorder associated with psychological and psychophysical factors, mechanical loosening of the prosthesis, history of insomnia, malingering musculoskeletal pain, weakness, syncope, chest pain, knee pain, musculoskeletal chest pain, somatization disorder, aortic aneurysm thoracic status post repair in 2014 and descending aortic aneurysm status post repair in 2014, drug-seeking behavior, gastroesophageal reflux disease. Dr. Craven's notation indicates that the patient has aortic stenosis, status post bioprosthetic aortic valve replacement in February with history of gout, osteoarthritis, anxiety, gastroesophageal reflux disease and modified Bentall surgery with aortic root replacement with 25 mm Marquez mitral flow bioprosthetic replacement, hemiarch replacement under hypothermic circulatory arrest in January 2013, thoracic aortic endovascular repair of the descending aortic aneurysm in June of 2016 and atrial fibrillation ablation on 06/18/2017. ALLERGIES: He is allergic to morphine, gabapentin, codeine, nitrates, fentanyl, Ativan, Motrin. He is able to tolerate Tylenol, Cades, tramadol, and Dilaudid according to notation of Dr. Craven. FAMILY HISTORY: Mother of natural causes. Father of heart disease. He has a sister with hypertension. He has a brother with hypertension. He does not have any chest pain. SOCIAL HISTORY: He does not smoke. Does not drink alcoholic beverages. He is single. 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 REVIEW OF SYSTEMS: GASTROINTESTINAL: He has had nausea and vomiting before he came into the hospital. He has had lower abdominal pain. His last bowel movement was yesterday. There is no black or bloody stools. GENITOURINARY: He does not have burning on urination. PULMONARY: Denies any coughing or wheezing. CONSTITUTIONAL: He does have sweats at times. NEUROLOGICAL: Negative. MUSCULOSKELETAL: He has pain in the back that radiates to his right groin for approximately 2 days. He denies any recent falls or injuries of any kind. PHYSICAL EXAMINATION: GENERAL: Shows to be elderly gentleman, in no respiratory distress, lying head of bed elevation approximately 30 to 40 degrees. NECK: Supple. No jugular venous distention. LUNGS: Clear to auscultation and percussion. CARDIAC: Mechanical heart sounds are noted. Appears somewhat irregular. Faint systolic ejection murmur. No heaves or thrills noted. ABDOMEN: Soft, obese. Positive bowel sounds. There is some tenderness in the right lower quadrant. No guarding. No rigidity. No rebound tenderness, but the main pain apparently is in the right side of lower back, which he had trouble moving around. EXTREMITIES: There is no clubbing or cyanosis. NEUROLOGICAL: He is awake, alert. Moves all four extremities. LABORATORY AND DIAGNOSTIC DATA: White count of 11.8, hemoglobin 14.5, and platelet count of 110. Sodium is 134, potassium 3.8, chloride 100, bicarbonate 23, BUN 20, creatinine 1.5, and a glucose of 160. Lactic acid of 2.5 and 2.9. Phosphorus 1.6. Magnesium 1.6. Total bilirubin 3.7, AST 64, ALT of 75. CK of 271. Troponin 0.151 and subsequently 0.152. ProBNP is only 1190. Lipase is 63. Coags, INR 1.1 and PTT of 37. Urinalysis shows 4+ blood, 5 to 10 rbc's, 1+ leukocyte esterase, 8 urobilinogen, 0 to 2 wbc's. Chest x-ray performed in the emergency room shows borderline cardiomegaly. Thoracic endograft remained in place. CT scan of the chest, abdomen, and pelvis shows contrast bolus volume suboptimal, postsurgical changes, repair of ascending aneurysm status post graft of his descending aorta with no evidence of leakage or rupture. No other acute abnormality. Dilated main and left pulmonary artery consistent with pulmonary artery hypertension, mild hazy pulmonary opacities, interlobular interstitial thickening, could be and fatty liver, hepatic capsular calcification, left renal cyst. MRI of the hip, small fat containing right inguinal hernia. No colonic diverticulosis. Degenerative disease of the right hip. No acute significant osseous or joint abnormalities otherwise. The lumbar spine shows no acute processes. His electrocardiogram shows changes suggestive of multifocal atrial tachycardia being documented on EKGs. There is really no significant ST or T-wave abnormalities. ASSESSMENT AND PLAN: 1. Chest pain with history of atypical chest pains previously. 2. 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 3. History of descending thoracic aortic aneurysm repair. 4. History of nonocclusive coronary artery disease on CT coronary angiography. 5. Intermittent left-sided atypical chest pains. 6. Chronic left-sided paresthesias, left-sided aches. 7. Right groin lower back pain. 8. Multiple drug allergies. 9. Renal insufficiency. 10. Obesity. 11. The patient has a history of paroxysmal episodes of atrial fibrillation on anticoagulation, status post ablation episodes. Dr. Marcial, this patient was seen in cardiac consultation. The patient is usually followed by Dr. Karyna Wheatley who will return on Wednesday to assume the patient's care. In light of the fact that the patient had no significant coronary artery disease and the fact that he does not have any significant ST-segment changes, and a mild degree of renal insufficiency, the likely etiology of abnormal cardiac enzymes is because of renal insufficiency. Cardiac enzymes will be repeated. So far, two sets are without any peak or rob. Repeat tests will be performed. Repeat EKG will be performed. He has had telemetry that showed sinus rhythm with premature atrial contractions versus multifocal atrial tachycardia. Echocardiogram was technically difficult study. Ejection fraction was 60% and no aortic regurgitation was noted. Documentation of an aortic stenosis. PA pressure was 36. The patient should be continued on the usual dose of his Eliquis and aspirin for the time being as well as his blood pressure medications and atenolol 50 mg twice daily. Further recommendations depending on the results of the above. The hip x-rays and CT scan do not show any evidence of abnormalities in relation to the hip itself, but I will leave the evaluation of the abdominal pain to yourself or GI. Isauro Palacio M.D. DR: TREY JOB#: [id number] CC:
[2018-10-28] VITALS: BP 104/54
[2018-10-28] MEDS: HYDROmorphone 1mg/ml Carpuject IVP PRN ×7 (01:02→22:40)
[2018-10-28 04:00] VITALS: BP 126/64
[2018-10-28 04:47] LABS: HEMATOCRIT 35.5 % (42.0-52.0); HEMOGLOBIN 11.8 G/DL (14.2-18.0); MEAN CORPUSCULAR VOLUME 92 FL (80-99); PLATELET COUNT 79 K/UL (150-450); RED BLOOD COUNT 3.85 M/UL (4.70-6.10); RED CELL DISTRIBUTION WIDTH 12.1 % (11.6-14.8); WHITE BLOOD COUNT 14.1 K/UL (4.8-10.8)
[2018-10-28 04:57] LABS: INR 1.1 (0.9-1.1)
[2018-10-28 05:07] LABS: CHOLESTEROL 77 MG/DL (< 200); HDL CHOLESTEROL 18 MG/DL (40-60); TRIGLYCERIDES 108 MG/DL (30-150)
--- NOTE | 2018-10-28 07:46 | NUR ---
HAND-OFF: Report given to KRYSTIAN Washburn.
[2018-10-28 08:00] VITALS: BP 113/68
--- NOTE | 2018-10-28 08:02 | Pulmonology Progress Note ---
Assessment/Plan Assessment/Plan ASSESSMENT Chest pain rule out acute coronary syndrome Elevated troponin GP Bacteremia, fevers, possible sepsis Hypertension Coronary artery disease History of AV replacement Acute kidney injury Right hip pain Thalamic pain syndrome Thrombocytopenia PLAN OF CARE KYE ECHO with pEF 60% , mild pulmonary hypertension cardio follows troponin levels flat, trending down per cardio CP atypical beta blockage a/coagulation with Eliquis resumed, PLT trending down , ? hold - per cardio CT C/A/P- no acute findings BP management with CCB and BB O2 PRN titrate to keep pulse ox above 92% , HHN prn decrease IVF rate BC + GP cocci in pairs and chains ? source ID consult Vanco per pharmacy, also on Cefepime CXR unremarkable, UA unremarkable MRI R hip and L-spine pain management case discussed and evaluated by supervising physician Subjective Allergies: Coded Allergies: MORPHINE (Verified Allergy, Severe, 11/07/10) NITROGLYCERIN (Verified Allergy, Severe, 11/07/10) KETOROLAC (Unverified Allergy, Intermediate, 03/14/14) FISH CONTAINING PRODUCTS (Verified Allergy, Mild, 07/20/14) per patient, "it knocks me out" ACETAMINOPHEN (Unverified Allergy, Unknown, 07/19/14) CODEINE (Unverified Allergy, Unknown, 11/03/13) UNKNOWN DIPHENHYDRAMINE (Unverified Allergy, Unknown, 09/30/14) IBUPROFEN (Unverified Allergy, Unknown, 11/03/13) UNKNOWN PROCHLORPERAZINE (Unverified Allergy, Unknown, 07/19/14) GABAPENTIN (Verified Adverse Reaction, Intermediate, 07/20/14) Per patient, it makes him sweat, throws up, and "blacks out" Subjective slightly short of breath chest pain and R hip pain febrile leucocytosis trending up troponin trending down Objective Last 24 Hour Vital Signs Date Time Temp Pulse Resp B/P (MAP) Pulse Ox O2 Delivery O2 Flow Rate FiO2 10/28/18 07:30 64 18 94 Room Air 21 10/28/18 04:00 99.9 78 20 126/64 (84) 99 10/28/18 04:00 Room Air 10/28/18 03:35 91 10/28/18 00:00 Room Air 10/28/18 00:00 81 10/28/18 00:00 99.5 75 18 104/54 (71) 99 10/27/18 21:27 62 18 24 Room Air 21 10/27/18 20:00 Room Air 10/27/18 20:00 81 10/27/18 20:00 100.0 81 20 129/75 (93) 94 10/27/18 18:17 92 121/63 10/27/18 16:00 104 10/27/18 16:00 Room Air 10/27/18 12:00 Room Air 10/27/18 11:28 108 10/27/18 10:00 104 10/27/18 09:50 Room Air Intake and Output 10/27/18 10/28/18 18:59 06:59 Intake Total 4044.5 ml 1497.916 ml Output Total 350 ml Balance 4044.5 ml 1147.916 ml Intake IV Total 4044.5 ml 1497.916 ml Output Urine Total 350 ml # Voids 1 General Appearance: no acute distress, other - A/A/O x 4 obese AA male HEENT: normocephalic, atraumatic, anicteric Respiratory/Chest: lungs clear, no accessory muscle use Cardiovascular: normal rate Abdomen: normal bowel sounds, soft, non tender - obese Extremities: no edema Neurologic/Psychiatric: alert, oriented x 3, responsive Microbiology Date/Time Source Procedure Growth Status 10/27/18 04:07 Blood Blood Culture - Preliminary Resulted 10/27/18 03:52 Blood Blood Culture - Preliminary Resulted 10/27/18 04:15 Nasal Nares - Final Complete 10/27/18 04:15 Nasal Nares - Final Complete Laboratory Tests 10/27/18 12:00: Troponin I 0.152H 10/27/18 21:15: Lactic Acid Level 1.10 10/28/18 03:25: Troponin I 0.066H, White Blood Count 14.1H, Red Blood Count 3.85L, Hemoglobin 11.8L, Hematocrit 35.5L, Mean Corpuscular Volume 92, Mean Corpuscular Hemoglobin 30.7, Mean Corpuscular Hemoglobin Concent 33.4, Red Cell Distribution Width 12.1, Platelet Count 79L, Mean Platelet Volume 8.1, Neutrophils (%) (Auto) , Lymphocytes (%) (Auto) , Monocytes (%) (Auto) , Eosinophils (%) (Auto) , Basophils (%) (Auto) , Prothrombin Time 11.6H, Prothromb Time International Ratio 1.1, Activated Partial Thromboplast Time 41H , C-Reactive Protein, Quantitative 28.2H, Triglycerides Level 108, Cholesterol Level 77, LDL Cholesterol 38, HDL Cholesterol 18L, Cholesterol/HDL Ratio 4.3, Thyroid Stimulating Hormone (TSH) 0.791, Random Vancomycin Level 11.0 Current Medications Medications (Trade) Dose Ordered Sig/Sheba Route PRN Reason Start Time Stop Time Status Last Admin Dose Admin Albuterol/ Ipratropium (Albuterol/ Ipratropium) 3 ml Q4H PRN HHN Shortness of Breath 10/27/18 10:45 11/01/18 10:44 Amlodipine Besylate (Norvasc) 10 mg DAILY ORAL 10/28/18 09:00 11/27/18 08:59 Apixaban (Eliquis) 5 mg BID ORAL 10/27/18 18:00 11/26/18 17:59 10/27/18 18:16 Atenolol (Tenormin) 50 mg BID ORAL 10/27/18 18:00 11/26/18 17:59 10/27/18 18:17 Cefepime HCl 1 gm/ Dextrose 55 ml @ 110 mls/hr Q24H IVPB 10/27/18 16:00 11/03/18 15:59 10/27/18 16:05 Diltiazem HCl (Cardizem) 10 mg Q1H PRN IV heart rate more than 120, 10/27/18 10:45 11/26/18 10:44 Divalproex Sodium (Depakote) 500 mg Q12HR ORAL 10/27/18 21:00 11/26/18 20:59 10/27/18 20:14 Enalaprilat (Vasotec) 2.5 mg Q6H PRN IV sbp more than 160 10/27/18 10:45 11/26/18 10:44 Hydromorphone HCl (Dilaudid) 0.5 mg Q4H PRN IVP MODERATE PAIN 10/27/18 10:30 11/03/18 09:35 Hydromorphone HCl (Dilaudid) 1 mg Q4H PRN IVP SEVERE PAIN 10/27/18 10:30 11/03/18 10:21 10/28/18 06:10 Iopamidol (Isovue-370 150ml) 150 ml NOW PRN INJ Radiology Procedure 10/27/18 04:00 Ondansetron HCl (Zofran) 4 mg Q6H PRN IVP Nausea & Vomiting 10/27/18 10:45 11/26/18 10:44 10/28/18 01:35 Polyethylene Glycol (Miralax) 17 gm DAILYPRN PRN ORAL Constipation 10/27/18 10:45 11/26/18 10:44 Sodium Chloride 1,000 ml @ 125 mls/hr Q8H IV 10/27/18 06:15 11/26/18 06:14 10/28/18 06:01 Temazepam (Restoril) 15 mg HSPRN PRN ORAL Insomnia 10/27/18 10:45 11/03/18 10:44 Vancomycin HCl (Vanco rx to dose) 1 ea DAILY PRN MISC Per rx protocol 10/27/18 15:00 11/26/18 14:59 Mable Nicole NP Oct 28, 2018 08:02
--- NOTE | 2018-10-28 08:29 | History and Physical Report ---
DATE OF ADMISSION: 10/27/2018 CHIEF COMPLAINT: Right hip pain, difficulty walking, chest pain. HISTORY OF PRESENT ILLNESS: This 73-year-old gentleman with past medical history significant for coronary artery disease status post open heart surgery, history of valvular heart disease status post aortic valve replacement with the repair of the aortic aneurysm, prior history of stroke, hypertension, status post laminectomy, and left hip replacement, who was presented to the hospital complaining about weakness and inability to ambulate, complaining about the right hip tenderness and pain, is unable to bear weight. He complained about chest pain occasionally. Denies any shortness of breath. Denies any fall or head trauma. Denies any bowel or urine incontinence. Denies any diarrhea. Shortly after initial evaluation in the emergency room, the patient was admitted to the hospital with right hip pain as well as well as atypical chest pain. PAST MEDICAL/SURGICAL HISTORY: As above. History of hypertension, coronary artery disease status post CABG, history of open heart surgery with the aortic valve replacement and repair of the aortic aneurysm, left knee replacement, history of laminectomy, prior history of stroke. 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 MEDICATIONS AT HOME: Significant for amlodipine, aspirin, atenolol, Depakote, and Seroquel. The patient is on tramadol as needed as well as Eliquis and Nexium. ALLERGIES: To morphine, nitroglycerin, question of fish containing products, acetaminophen, codeine, Benadryl, ibuprofen, chlorpromazine, gabapentin, and ketorolac. SOCIAL HISTORY: The patient denies any smoking, alcohol, or drugs at this time. FAMILY HISTORY: Noncontributory. REVIEW OF SYSTEMS: Mostly as above. Denies any dysuria, frequency, or hematuria. Complained about abdominal pain, mostly in the right lower quadrant as well as right hip pain. Denies any hemoptysis or hematochezia. Denies any bright red blood per rectum. Denies any loss of consciousness. PHYSICAL EXAMINATION: VITAL SIGNS: On admission, temperature 100.1, repeat one was 102.5, pulse 92, respirations 18, and blood pressure 132/82. GENERAL: The patient is awake and responsive, in no acute distress. HEAD AND NECK: Pupils are equal and reactive to light. Extraocular movements intact. Neck was supple. No JVD. LUNGS: Good air entry with no wheeze or rales. HEART: S1, S2. Distant heart sounds. No murmur or gallop. Irregular rate. ABDOMEN: Soft, nondistended, and nontender. Morbidly obese. PELVIC: Right pelvic area tender to touch. No sign of infection. EXTREMITIES: No cyanosis, clubbing, or edema. NEUROLOGIC: Cranial nerves II to XII grossly normal. Moves all four extremities. Gait was not assessed due to the patient's status. RECTAL/GENITOURINARY: Refused and deferred. PSYCHIATRIC: Mood and affect is intact. LABORATORY DATA: On admission from the ER, PTT 34, INR is 1.1, PT 11. Sodium is 134, potassium 3.8, chloride 100, bicarbonate 23, BUN 20, and creatinine 1.5. Glucose is 160. Lactic acid is 2.50, repeat one is 2.90. Calcium is 9.3. Phosphorus is 1.6. Magnesium is 1.6. Total bilirubin of 3.7 and direct bilirubin of 0.8. AST of 64, ALT of 71. Total creatine kinase is 363. First troponin 0.15. Second troponin 0.152. ProBNP of 1197. Lipase 63. WBC of 11, hemoglobin 14, hematocrit 42, and platelets 110,000. UA is +2 protein, +4 blood, positive nitrite, positive , +[address] of the chest, abdomen and pelvis was noted that the pelvic was excluded, only the abdomen was imaged. Ectatic upper abdomen aorta, which measured 3.7 centimeter parallel to the celiac takeoff. No dissection. The branch vessels are widely patent. No acute process along the visualized gastrointestinal tract. Normal appendix. Mild colonic diverticulosis without diverticulitis. No acute process in solid organs, status post endovascular stent of the descending thoracic aorta aneurysm measures 5.6 cm The patient had an EKG done, which noted to be atrial fibrillation with ventricular rate of 108 with rapid ventricular rate and left axis deviation, left ventricular hypertrophy. No ST elevation was identified. The patient had an echocardiogram done noted to be ejection fraction of 60%, mild left ventricular hypertrophy, thickening mitral valve leaflet with normal excursion. Pulmonic valve not well visualized. Mild mitral diastolic velocity suggestive of mild left ventricular systolic dysfunction. Mild tricuspid regurgitation. ASSESSMENT: 1. Weakness and fever, most likely secondary to sepsis secondary to urinary tract infection with lactic acidosis. 2. Lactic acidosis. 3. Right hip pain. 4. Coronary artery disease. 5. 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 6. Hypertension. 7. History of cervical disk disease with myelopathy. 8. Aortic valve replacement. 9. Descending aortic aneurysm repair. PLAN: Admit the patient to monitored unit. We will follow up with , recommendation from Pulmonary Critical Care. Broad spectrum antibiotic with vancomycin and cefepime. We will follow up with the urine culture. Code status is Full Code. Follow up with the x-ray of the lumbar spine as well as hip. Continue anticoagulation therapy with the Eliquis due to the atrial fibrillation. Code status is Full Code. We will follow up with the cardiology recommendation. Tao Marical M.D. DR: PADMA JOB#: [id number] CC:
--- NOTE | 2018-10-28 08:30 | NUR ---
HAND-OFF: Report given to Thomas Betancourt RN.
--- NOTE | 2018-10-28 09:00 | NUR ---
NURSE NOTES: Mable Nicole notified regarding patient WBC increase to 14.1 with a slight fever on 0400. consulted dr. Wills for ID since patient has 4 bottle of gram positive cocci in pairs and chains, also notified regarding fluids of 125 and will change to 75ml/hr Normal Saline, also ordered to have Dilaudid changed to Q3hrs with same dose and route. no further orders given at this time.
[2018-10-28] MEDS ORDERED: Hydromorphone 0.5mg/0.5ml inj IVP PRN (09:03)
[2018-10-28] MEDS ORDERED: Tubing IV Secondary IV ONE (09:09)
[2018-10-28] MEDS ORDERED: NS 275ml ONE (09:09)
[2018-10-28] MEDS: Depakote 500mg tab ORAL SCH ×2 (09:32→20:55)
[2018-10-28] MEDS: Eliquis 5mg tablet ORAL SCH (09:33)
--- NOTE | 2018-10-28 10:45 | NUR ---
NURSE NOTES: Mable kike notified regarding refusing to have Ativan given to calm during MRI scan, he has claustrophobia and is unable to remains calm, patient refuses to have the exam completed. MRI scan will be cancelled,
[2018-10-28 12:00] VITALS: BP 102/64
--- NOTE | 2018-10-28 13:00 | NUR ---
NURSE NOTES: Dialudid 1mg given for patient on right hip, complains of sharp throbbing pain and remains awake and alert, no slur or delayed speech, he is able to use his hands 4/5 and reposition self with no assistance in bed, patient eating with no assistance siting in bed.
--- NOTE | 2018-10-28 14:40 | Consultation ---
History of Present Illness General Date patient seen: Oct 28, 2018 Chief Complaint: Chest Pain Present Illness HPI 73 y/o M with hx of pAfib s/p ablation 06/2017, HTN, obesity, R MCA thromboembolic stroke, s/p laminectomy, L TKR s/p revision and screw removal 2018, HTN, s/p bioprosthetic AVR, pain/somatization disorder, aortic aneurysm s/ p repair 2014, GERD, drug-seeking behavior, insomnia, gout, OA, anxiety presented to ED on 10/27 with sharp pains in chest, abdomen and R groin. + occasional dizziness Denies any palpitations, SOB, fevers, cough, congestion, dysuria, diarrhea. ID is consulted for bacteremia. Allergies: Coded Allergies: MORPHINE (Verified Allergy, Severe, 11/07/10) NITROGLYCERIN (Verified Allergy, Severe, 11/07/10) KETOROLAC (Unverified Allergy, Intermediate, 03/14/14) FISH CONTAINING PRODUCTS (Verified Allergy, Mild, 07/20/14) per patient, "it knocks me out" ACETAMINOPHEN (Unverified Allergy, Unknown, 07/19/14) CODEINE (Unverified Allergy, Unknown, 11/03/13) UNKNOWN DIPHENHYDRAMINE (Unverified Allergy, Unknown, 09/30/14) IBUPROFEN (Unverified Allergy, Unknown, 11/03/13) UNKNOWN PROCHLORPERAZINE (Unverified Allergy, Unknown, 07/19/14) GABAPENTIN (Verified Adverse Reaction, Intermediate, 07/20/14) Per patient, it makes him sweat, throws up, and "blacks out" Medication History Scheduled Amlodipine Besylate* (Amlodipine Besylate*), 10 MG ORAL DAILY, (Reported) Aspirin (Aspirin EC), 81 MG ORAL DAILY, (Reported) Atenolol* (Tenormin*), 50 MG ORAL BID Divalproex Sodium (Depakote), 500 MG PO BID Quetiapine Fumarate* (Seroquel*), 25 MG ORAL BID Scheduled PRN Tramadol Hcl* (Ultram*), 100 MG ORAL Q6H PRN for For Pain Zolpidem Tartrate* (Zolpidem Tartrate*), HS PRN for Insomnia, (Reported) Zolpidem Tartrate* (Ambien*), 10 MG ORAL HS PRN for Insomnia, (Reported) Miscellaneous Medications Apixaban (Eliquis), 5 MG PO, (Reported) Esomeprazole Magnesium (Nexium 24Hr), 20 MG PO, (Reported) Patient History Healthcare decision maker SELF Resuscitation status Full Code Advanced Directive on File Patient History Narrative Pmhx: as above Shx: He does not smoke. Does not drink alcoholic beverages. He is single. 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 Fhx: non contributory Review of Systems All Other Systems: negative except mentioned in HPI Physical Exam Physical Exam Narrative GENERAL: The patient is awake and responsive, in no acute distress. HEAD AND NECK: Pupils are equal and reactive to light. Extraocular movements intact. Neck was supple. No JVD. LUNGS: Good air entry with no wheeze or rales. HEART: S1, S2. Distant heart sounds. No murmur or gallop. Irregular rate. ABDOMEN: Soft, nondistended, and nontender. Morbidly obese. PELVIC: Right pelvic area tender to touch. No sign of infection. EXTREMITIES: No cyanosis, clubbing, or edema. NEUROLOGIC: Cranial nerves II to XII grossly normal. Moves all four extremities. Gait was not assessed due to the patient's status. RECTAL/GENITOURINARY: Refused and deferred. PSYCHIATRIC: Mood and affect is intact. Last 24 Hour Vital Signs Date Time Temp Pulse Resp B/P (MAP) Pulse Ox O2 Delivery O2 Flow Rate FiO2 10/28/18 12:00 Room Air 10/28/18 12:00 72 10/28/18 12:00 98.2 81 21 102/64 (77) 94 10/28/18 09:32 81 113/68 10/28/18 09:32 81 113/68 10/28/18 08:00 99.3 81 22 113/68 (83) 95 10/28/18 08:00 Room Air 10/28/18 07:43 92 10/28/18 07:30 64 18 94 Room Air 21 10/28/18 04:00 99.9 78 20 126/64 (84) 99 10/28/18 04:00 Room Air 10/28/18 03:35 91 10/28/18 00:00 Room Air 10/28/18 00:00 81 10/28/18 00:00 99.5 75 18 104/54 (71) 99 10/27/18 21:27 62 18 24 Room Air 21 10/27/18 20:00 Room Air 10/27/18 20:00 81 10/27/18 20:00 100.0 81 20 129/75 (93) 94 10/27/18 18:17 92 121/63 10/27/18 16:00 104 10/27/18 16:00 Room Air Intake and Output 10/27/18 10/28/18 19:00 07:00 Intake Total 3769.5 ml 1497.916 ml Output Total 350 ml Balance 3769.5 ml 1147.916 ml IV Total 3769.5 ml 1497.916 ml Output Urine Total 350 ml # Voids 1 Laboratory Tests Test 10/27/18 21:15 10/28/18 03:25 10/28/18 10:30 Lactic Acid Level 1.10 mmol/L (0.4-2.0) White Blood Count 14.1 K/UL (4.8-10.8) H Red Blood Count 3.85 M/UL (4.70-6.10) L Hemoglobin 11.8 G/DL (14.2-18.0) L Hematocrit 35.5 % (42.0-52.0) L Mean Corpuscular Volume 92 FL (80-99) Mean Corpuscular Hemoglobin 30.7 PG (27.0-31.0) Mean Corpuscular Hemoglobin Concent 33.4 G/DL (32.0-36.0) Red Cell Distribution Width 12.1 % (11.6-14.8) Platelet Count 79 K/UL (150-450) L Mean Platelet Volume 8.1 FL (6.5-10.1) Neutrophils (%) (Auto) % (45.0-75.0) Lymphocytes (%) (Auto) % (20.0-45.0) Monocytes (%) (Auto) % (1.0-10.0) Eosinophils (%) (Auto) % (0.0-3.0) Basophils (%) (Auto) % (0.0-2.0) Prothrombin Time 11.6 SEC (9.30-11.50) H Prothromb Time International Ratio 1.1 (0.9-1.1) Activated Partial Thromboplast Time 41 SEC (23-33) H Troponin I 0.066 ng/mL (0.000-0.056) 0.058 ng/mL (0.000-0.056) C-Reactive Protein, Quantitative 28.2 mg/dL (0.00-0.90) H Triglycerides Level 108 MG/DL (30-150) Cholesterol Level 77 MG/DL (< 200) LDL Cholesterol 38 mg/dL (<100) HDL Cholesterol 18 MG/DL (40-60) L Cholesterol/HDL Ratio 4.3 (3.3-4.4) Thyroid Stimulating Hormone (TSH) 0.791 uiU/mL (0.358-3.740) Random Vancomycin Level 11.0 ug/mL Height (Feet): 6 Height (Inches): 1.00 Weight (Pounds): 280 Medications Current Medications Medications (Trade) Dose Ordered Sig/Sheba Route PRN Reason Start Time Stop Time Status Last Admin Dose Admin Albuterol/ Ipratropium (Albuterol/ Ipratropium) 3 ml Q4H PRN HHN Shortness of Breath 10/27/18 10:45 11/01/18 10:44 Amlodipine Besylate (Norvasc) 10 mg DAILY ORAL 10/28/18 09:00 11/27/18 08:59 10/28/18 09:32 Apixaban (Eliquis) 5 mg BID ORAL 10/27/18 18:00 11/26/18 17:59 10/28/18 09:33 Atenolol (Tenormin) 50 mg BID ORAL 10/27/18 18:00 11/26/18 17:59 10/28/18 09:32 Cefepime HCl 1 gm/ Dextrose 55 ml @ 110 mls/hr Q24H IVPB 10/27/18 16:00 11/03/18 15:59 10/27/18 16:05 Diltiazem HCl (Cardizem) 10 mg Q1H PRN IV heart rate more than 120, 10/27/18 10:45 11/26/18 10:44 Divalproex Sodium (Depakote) 500 mg Q12HR ORAL 10/27/18 21:00 11/26/18 20:59 10/28/18 09:32 Enalaprilat (Vasotec) 2.5 mg Q6H PRN IV sbp more than 160 10/27/18 10:45 11/26/18 10:44 Hydromorphone HCl (Dilaudid) 0.5 mg Q3H PRN IVP MODERATE PAIN 10/28/18 09:03 11/04/18 09:02 Hydromorphone HCl (Dilaudid) 1 mg Q3H PRN IVP SEVERE PAIN 10/28/18 09:03 11/04/18 09:02 10/28/18 12:36 Iopamidol (Isovue-370 150ml) 150 ml NOW PRN INJ Radiology Procedure 10/27/18 04:00 Ondansetron HCl (Zofran) 4 mg Q6H PRN IVP Nausea & Vomiting 10/27/18 10:45 11/26/18 10:44 10/28/18 01:35 Polyethylene Glycol (Miralax) 17 gm DAILYPRN PRN ORAL Constipation 10/27/18 10:45 11/26/18 10:44 Sodium Chloride 1,000 ml @ 75 mls/hr [id number] IV 10/28/18 09:27 11/27/18 09:26 10/28/18 09:37 Temazepam (Restoril) 15 mg HSPRN PRN ORAL Insomnia 10/27/18 10:45 11/03/18 10:44 Vancomycin HCl (Vanco rx to dose) 1 ea DAILY PRN MISC Per rx protocol 10/27/18 15:00 11/26/18 14:59 Assessment/Plan Assessment/Plan: Abx: IV Vancomycin 10/27- Cefepime 10/27- Assessment: Sepsis 2ry to Gram positive bacteremia (?source)- r/o endocarditis, aortic graft infection -10/27 BCx 2/2 GPC pairs and chains -CXR: Borderline cardiomegaly.Thoracic endograft again demonstrated. No definite acute process -CTA c/abd/p w/wo: Somewhat limited exam due to lack of inclusion of the pelvis within the imaging volume. Postsurgical changes, status post surgical repair of the ascending thoracic aorta, status post stent graft repair of descending thoracic aorta. No evidence of leakage for rupture. No acute abnormality. Dilated main and left main pulmonary artery, consistent with pulmonary arterial hypertension. Mild hazy pulmonary opacity and centrilobular interstitial septal thickening in the upper lobes, could indicate mild pulmonary edema. Fatty liver. Incidental findings as noted, including hepatic capsular calcifications, left renal cysts, probable small right renal cysts -2d Echo: no vegetations -u/a no pyuria, nit +, leuk +1 Fever; improving Leukocytosis; increased R Hip/back pain -L spine xray: No acute process. Mild degenerative changes -MRI hip: Mild degenerative changes of the right hip. No acute or significant osseous or joint abnormality otherwise. Incidental findings of small fat- containing right hernia and colonic diverticulosis pAfib s/p ablation 06/2017 HTN obesity R MCA thromboembolic stroke s/p laminectomy L TKR s/p revision and screw removal 06/2018 HTN s/p bioprosthetic AVR pain/somatization disorder aortic aneurysm s/p repair 2014, GERD drug-seeking behavior insomnia gout OA anxiety Plan: -Switch IV Vancomycin #2 to Daptomycin pending GPC ID and sensi (likely is Strep but needs to rule out VRE) -d/c Cefepime #2 -f/u cx -Monitor CBC/CMP, temperatures -Will need BENJAMIN to evaluate for endocarditis in setting of gram positive bacteremia and AVR -WBC scan to eval for aortic graft infection -Bcx x2 Thank you for this consultation. Will continue to follow along with you. Discussed with Bree Rincon M.D. Oct 28, 2018 14:40
[2018-10-28 16:00] VITALS: BP 115/74
[2018-10-28] MEDS ORDERED: NS IV SCH (16:00)
[2018-10-28] MEDS: Cefepime HCl 1 GM in D5W 55 ML IVPB SCH (16:00)
[2018-10-28] MEDS ORDERED: DAPTOMYCIN IV SCH (16:00)
--- NOTE | 2018-10-28 16:15 | NUR ---
NURSE NOTES: Dr. Steel at the bedside teaching patient of nm indium scan, patient undestand test and condented to have it done, nuclear med called to inform of exam but will have it done the following day.
--- NOTE | 2018-10-28 18:55 | NUR ---
NURSE NOTES: Dr. Palacio made aware of BENJAMIN and consent has been signed by patient after teaching regarding test,
--- NOTE | 2018-10-28 19:02 | Cardiology Progress Note ---
Assessment/Plan Assessment/Plan 1. Chest pain with history of atypical chest pains previously. 2. 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 3. History of descending thoracic aortic aneurysm repair. 4. History of nonocclusive coronary artery disease on CT coronary angiography. 5. Intermittent left-sided atypical chest pains. 6. Chronic left-sided paresthesias, left-sided aches. 7. Right groin lower back pain. 8. Multiple drug allergies. 9. Renal insufficiency. 10. Obesity. 11. paroxysmal episodes of atrial s/p ablation episodes. 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 Subjective Cardiovascular: Reports: chest pain; Denies: lightheadedness, palpitations Respiratory: Denies: orthopnea, shortness of breath Gastrointestinal/Abdominal: Denies: abdomen distended Genitourinary: Denies: burning Objective Last 24 Hour Vital Signs Date Time Temp Pulse Resp B/P (MAP) Pulse Ox O2 Delivery O2 Flow Rate FiO2 10/28/18 18:40 76 120/60 10/28/18 16:00 99.1 76 20 115/74 (88) 96 10/28/18 16:00 77 10/28/18 16:00 Nasal Cannula 2.0 10/28/18 12:00 Room Air 10/28/18 12:00 72 10/28/18 12:00 98.2 81 21 102/64 (77) 94 10/28/18 09:32 81 113/68 10/28/18 09:32 81 113/68 10/28/18 08:00 99.3 81 22 113/68 (83) 95 10/28/18 08:00 Room Air 10/28/18 07:43 92 10/28/18 07:30 64 18 94 Room Air 21 10/28/18 04:00 99.9 78 20 126/64 (84) 99 10/28/18 04:00 Room Air 10/28/18 03:35 91 10/28/18 00:00 Room Air 10/28/18 00:00 81 10/28/18 00:00 99.5 75 18 104/54 (71) 99 10/27/18 21:27 62 18 24 Room Air 21 10/27/18 20:00 Room Air 10/27/18 20:00 81 10/27/18 20:00 100.0 81 20 129/75 (93) 94 General Appearance: no apparent distress, alert, obese, patient on isolation Neck: supple Cardiovascular: normal rate, systolic murmur, other - mechanica; Respiratory/Chest: lungs clear Abdomen: normal bowel sounds, non tender, soft Extremities: no swelling Intake and Output 10/27/18 10/28/18 19:00 07:00 Intake Total 3769.5 ml 1497.916 ml Output Total 350 ml Balance 3769.5 ml 1147.916 ml IV Total 3769.5 ml 1497.916 ml Output Urine Total 350 ml # Voids 1 Laboratory Tests Test 10/27/18 21:15 10/28/18 03:25 10/28/18 10:30 Lactic Acid Level 1.10 mmol/L (0.4-2.0) White Blood Count 14.1 K/UL (4.8-10.8) H Red Blood Count 3.85 M/UL (4.70-6.10) L Hemoglobin 11.8 G/DL (14.2-18.0) L Hematocrit 35.5 % (42.0-52.0) L Mean Corpuscular Volume 92 FL (80-99) Mean Corpuscular Hemoglobin 30.7 PG (27.0-31.0) Mean Corpuscular Hemoglobin Concent 33.4 G/DL (32.0-36.0) Red Cell Distribution Width 12.1 % (11.6-14.8) Platelet Count 79 K/UL (150-450) L Mean Platelet Volume 8.1 FL (6.5-10.1) Neutrophils (%) (Auto) % (45.0-75.0) Lymphocytes (%) (Auto) % (20.0-45.0) Monocytes (%) (Auto) % (1.0-10.0) Eosinophils (%) (Auto) % (0.0-3.0) Basophils (%) (Auto) % (0.0-2.0) Prothrombin Time 11.6 SEC (9.30-11.50) H Prothromb Time International Ratio 1.1 (0.9-1.1) Activated Partial Thromboplast Time 41 SEC (23-33) H Troponin I 0.066 ng/mL (0.000-0.056) 0.058 ng/mL (0.000-0.056) C-Reactive Protein, Quantitative 28.2 mg/dL (0.00-0.90) H Triglycerides Level 108 MG/DL (30-150) Cholesterol Level 77 MG/DL (< 200) LDL Cholesterol 38 mg/dL (<100) HDL Cholesterol 18 MG/DL (40-60) L Cholesterol/HDL Ratio 4.3 (3.3-4.4) Thyroid Stimulating Hormone (TSH) 0.791 uiU/mL (0.358-3.740) Random Vancomycin Level 11.0 ug/mL Microbiology Date/Time Source Procedure Growth Status 10/27/18 04:07 Blood Blood Culture - Preliminary Resulted 10/27/18 03:52 Blood Blood Culture - Preliminary Resulted 10/27/18 04:15 Nasal Nares - Final Complete 10/27/18 04:15 Nasal Nares - Final Complete Isauro Palacio MD Oct 28, 2018 19:02
--- NOTE | 2018-10-28 19:33 | NUR ---
HAND-OFF: Report given to KRYSTIAN Dunn.
--- NOTE | 2018-10-28 19:34 | NUR ---
NURSE NOTES: Endorsement received from KRYSTIAN Guzman. Patient alert and oriented x4. On 2 LPM oxygen per nasal cannula. 99% saturation. With left forearm g 20, NS 75 ml/hr. Head of bed elevated. Bed alarm on. Call light within reach. Will continue to monitor.
[2018-10-28 20:00] VITALS: BP 123/70
--- NOTE | 2018-10-28 22:00 | NUR ---
NURSE NOTES: Patient requested for a sandwich, informed him that the only sandwich available is chicken sandwich. As per him he doesn't have any allergies to it, consumed 50%.
--- NOTE | 2018-10-28 23:30 | Internal Med Progress Note ---
Subjective Physician Name Tao Marcial Attending Physician Tao Marcial MD Current Medications Medications (Trade) Dose Ordered Sig/Sheba Route PRN Reason Start Time Stop Time Status Last Admin Dose Admin Albuterol/ Ipratropium (Albuterol/ Ipratropium) 3 ml Q4H PRN HHN Shortness of Breath 10/27/18 10:45 11/01/18 10:44 Amlodipine Besylate (Norvasc) 10 mg DAILY ORAL 10/28/18 09:00 11/27/18 08:59 10/28/18 09:32 Atenolol (Tenormin) 50 mg BID ORAL 10/27/18 18:00 11/26/18 17:59 10/28/18 18:40 Daptomycin 750 mg/ Sodium Chloride 55 ml @ 100 mls/hr Q24H IV 10/28/18 16:00 11/04/18 15:59 10/28/18 16:39 Diltiazem HCl (Cardizem) 10 mg Q1H PRN IV heart rate more than 120, 10/27/18 10:45 11/26/18 10:44 Divalproex Sodium (Depakote) 500 mg Q12HR ORAL 10/27/18 21:00 11/26/18 20:59 10/28/18 20:55 Enalaprilat (Vasotec) 2.5 mg Q6H PRN IV sbp more than 160 10/27/18 10:45 11/26/18 10:44 Hydromorphone HCl (Dilaudid) 0.5 mg Q3H PRN IVP MODERATE PAIN 10/28/18 09:03 11/04/18 09:02 Hydromorphone HCl (Dilaudid) 1 mg Q3H PRN IVP SEVERE PAIN 10/28/18 09:03 11/04/18 09:02 10/28/18 22:40 Iopamidol (Isovue-370 150ml) 150 ml NOW PRN INJ Radiology Procedure 10/27/18 04:00 Ondansetron HCl (Zofran) 4 mg Q6H PRN IVP Nausea & Vomiting 10/27/18 10:45 11/26/18 10:44 10/28/18 21:13 Polyethylene Glycol (Miralax) 17 gm DAILYPRN PRN ORAL Constipation 10/27/18 10:45 11/26/18 10:44 Sodium Chloride 1,000 ml @ 75 mls/hr [id number] IV 10/28/18 09:27 11/27/18 09:26 10/28/18 09:37 Temazepam (Restoril) 15 mg HSPRN PRN ORAL Insomnia 10/27/18 10:45 11/03/18 10:44 Allergies: Coded Allergies: MORPHINE (Verified Allergy, Severe, 11/07/10) NITROGLYCERIN (Verified Allergy, Severe, 11/07/10) KETOROLAC (Unverified Allergy, Intermediate, 03/14/14) FISH CONTAINING PRODUCTS (Verified Allergy, Mild, 07/20/14) per patient, "it knocks me out" ACETAMINOPHEN (Unverified Allergy, Unknown, 07/19/14) CODEINE (Unverified Allergy, Unknown, 11/03/13) UNKNOWN DIPHENHYDRAMINE (Unverified Allergy, Unknown, 09/30/14) IBUPROFEN (Unverified Allergy, Unknown, 11/03/13) UNKNOWN PROCHLORPERAZINE (Unverified Allergy, Unknown, 07/19/14) GABAPENTIN (Verified Adverse Reaction, Intermediate, 07/20/14) Per patient, it makes him sweat, throws up, and "blacks out" Subjective awake, alert, responsive, C/O right hip pain, NAD, No CP or SOB, low grade fever , Objective Last Vital Signs Date Time Temp Pulse Resp B/P (MAP) Pulse Ox O2 Delivery O2 Flow Rate FiO2 10/28/18 21:30 64 18 94 Nasal Cannula 2.0 28 10/28/18 20:13 99.5 10/28/18 20:00 123/70 (87) Laboratory Tests Test 10/28/18 03:25 10/28/18 10:30 White Blood Count 14.1 K/UL (4.8-10.8) H Red Blood Count 3.85 M/UL (4.70-6.10) L Hemoglobin 11.8 G/DL (14.2-18.0) L Hematocrit 35.5 % (42.0-52.0) L Mean Corpuscular Volume 92 FL (80-99) Mean Corpuscular Hemoglobin 30.7 PG (27.0-31.0) Mean Corpuscular Hemoglobin Concent 33.4 G/DL (32.0-36.0) Red Cell Distribution Width 12.1 % (11.6-14.8) Platelet Count 79 K/UL (150-450) L Mean Platelet Volume 8.1 FL (6.5-10.1) Neutrophils (%) (Auto) % (45.0-75.0) Lymphocytes (%) (Auto) % (20.0-45.0) Monocytes (%) (Auto) % (1.0-10.0) Eosinophils (%) (Auto) % (0.0-3.0) Basophils (%) (Auto) % (0.0-2.0) Prothrombin Time 11.6 SEC (9.30-11.50) H Prothromb Time International Ratio 1.1 (0.9-1.1) Activated Partial Thromboplast Time 41 SEC (23-33) H Troponin I 0.066 ng/mL (0.000-0.056) 0.058 ng/mL (0.000-0.056) C-Reactive Protein, Quantitative 28.2 mg/dL (0.00-0.90) H Triglycerides Level 108 MG/DL (30-150) Cholesterol Level 77 MG/DL (< 200) LDL Cholesterol 38 mg/dL (<100) HDL Cholesterol 18 MG/DL (40-60) L Cholesterol/HDL Ratio 4.3 (3.3-4.4) Thyroid Stimulating Hormone (TSH) 0.791 uiU/mL (0.358-3.740) Random Vancomycin Level 11.0 ug/mL Microbiology Date/Time Source Procedure Growth Status 10/27/18 04:07 Blood Blood Culture - Preliminary Resulted 10/27/18 03:52 Blood Blood Culture - Preliminary Resulted 10/27/18 04:15 Nasal Nares - Final Complete 10/27/18 04:15 Nasal Nares - Final Complete Intake and Output 10/27/18 10/28/18 19:00 07:00 Intake Total 3769.5 ml 1497.916 ml Output Total 350 ml Balance 3769.5 ml 1147.916 ml IV Total 3769.5 ml 1497.916 ml Output Urine Total 350 ml # Voids 1 Objective General: No acute distress, awake and alert HEENT: NCAT, sclera anicteric, PERRL, EOMI. Neck: Supple, no significant jugular venous distention, Lungs: Good inspiratory effort, decrease air at bases,, no Wheeze or Rales. Heart: Regular rate and rhythm, normal S1/S2, no murmurs Abdomen: soft, nontender, nondistended. Normoactive bowel sounds, obesity, Right hip pain. / Rectal: Refused and deferred. Extremities: No Cyanosis , clubbing or edema. Neuro: A&O x 3, Able to move all extremities Skin: warm, no rashes or lesions Psych: Normal mood and affect Assessment/Plan Assessment/Plan 1. Sepsis 2ry to Gram positive bacteremia (?source)- r/o endocarditis, aortic graft infection -10/27 BCx 2/2 GPC pairs and chains1. 2. Urinary tract infection with lactic acidosis. 3. Right hip pain. 4. Coronary artery disease. 5. 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 6. Hypertension. 7. History of cervical disk disease with myelopathy. 8. Aortic valve replacement. 9. Descending aortic aneurysm repair. 10.Thrombocytopenia. PLAN: in [facility] Monitor labs and cultures. Abx: Daptomycin Dc Eliquis due to thrombocytopenia Code status is Full Code. DVT prophylaxis: SCD Tao Marcial MD Oct 28, 2018 23:30
[2018-10-29] VITALS (7 sets, daily range): BP systolic 105–123; BP diastolic 56–73
[2018-10-29] MEDS: HYDROmorphone 1mg/ml Carpuject IVP PRN ×8 (01:42→23:08)
--- NOTE | 2018-10-29 06:00 | NUR ---
NURSE NOTES: Patient awake at this time, asking for pain medication. Informed him that pain medication is not due yet, verbalized understanding.
[2018-10-29 06:30] LABS: HEMATOCRIT 34.1 % (42.0-52.0); HEMOGLOBIN 11.5 G/DL (14.2-18.0); MEAN CORPUSCULAR VOLUME 92 FL (80-99); PLATELET COUNT 97 K/UL (150-450); RED BLOOD COUNT 3.71 M/UL (4.70-6.10); RED CELL DISTRIBUTION WIDTH 12.1 % (11.6-14.8)
[2018-10-29 06:39] LABS: ANION GAP 10 mmol/L (5-15); BLOOD UREA NITROGEN 19 mg/dL (7-18); CALCIUM 8.5 MG/DL (8.5-10.1); CARBON DIOXIDE 21 MMOL/L (21-32); CHLORIDE 106 MMOL/L (98-107); CREATININE 1.1 MG/DL (0.55-1.30); POTASSIUM 3.5 MMOL/L (3.5-5.1); SODIUM 137 MMOL/L (136-145)
[2018-10-29 07:00] LABS: CREATINE KINASE 210 U/L (26-308)
--- NOTE | 2018-10-29 07:29 | NUR ---
NURSE NOTES: Received report from KRYSTIAN Hyde. Patient is in stable condition. No acute distress/SOB noted on O2 2L/min via N/C. Emptied 250ml urine in urinal. Left forearm 20G IV intact and clean, running with NS 75ml/hr. Provided breakfast. Will continue plan of care.
--- NOTE | 2018-10-29 07:30 | NUR ---
HAND-OFF: Report given to KRYSTIAN Bowie.
--- NOTE | 2018-10-29 07:52 | NUR ---
NURSE NOTES: Patient complains of right hip pain, aching 8/10. Dilaudid 1mg given as ordered.
[2018-10-29] MEDS: Depakote 500mg tab ORAL SCH ×2 (08:17→20:05)
--- NOTE | 2018-10-29 08:22 | NUR ---
NURSE NOTES: Patient said there is still pain 3/10 but it is tolerable.
--- NOTE | 2018-10-29 09:30 | Pulmonology Progress Note ---
Assessment/Plan Assessment/Plan ASSESSMENT Chest pain, rule out acute coronary syndrome with elevated troponin Sepsis with Strep group B bacteremia r/o endocarditis, aortic graft infection Hypertension PAF, s/p ablation 06/2017 s/p bioprosthetic AVR HTN obesity R MCA thromboembolic stroke s/p laminectomy L TKR s/p revision and screw removal 06/2018 Pain/somatization disorder Coronary artery disease Acute kidney injury Right hip pain Thalamic pain syndrome Thrombocytopenia PLAN OF CARE KYE ECHO with pEF 60% , mild pulmonary hypertension , no evidence of vegetation cardio follows troponin levels flat, trending down , last negative per cardio, CP atypical beta blockage a/coagulation with Eliquis resumed, PLT trending down , Eliquis stopped 10/28. PLT up to 97 further a/coagulation ? - per cardio recommendations CT C/A/P- no acute findings BP management with CCB and BB on O2 now, O2 titrate to keep pulse ox above 92% , HHN prn venous Duplex BLE dc IVF BC + GP cocci in pairs and chains ? source ID recs appreciated Vanco changed to Daptomycin, off Cefepime CXR unremarkable, UA unremarkable r/o endocarditis, aortic graft infection: ECHO noted, no vegetation, CT C/A/P -noted, no acute findings , stent in place, no evidence of leakage or rupture MRI R hip mild degenerative disease, no acute findings X ray L spine no acute findings, mild DDD pain management MARLY resolved, off IVF, avoid nephrotoxic, monitor lytes, renal parameters case discussed and evaluated by supervising physician Subjective Allergies: Coded Allergies: MORPHINE (Verified Allergy, Severe, 11/07/10) NITROGLYCERIN (Verified Allergy, Severe, 11/07/10) KETOROLAC (Unverified Allergy, Intermediate, 03/14/14) FISH CONTAINING PRODUCTS (Verified Allergy, Mild, 07/20/14) per patient, "it knocks me out" ACETAMINOPHEN (Unverified Allergy, Unknown, 07/19/14) CODEINE (Unverified Allergy, Unknown, 11/03/13) UNKNOWN DIPHENHYDRAMINE (Unverified Allergy, Unknown, 09/30/14) IBUPROFEN (Unverified Allergy, Unknown, 11/03/13) UNKNOWN PROCHLORPERAZINE (Unverified Allergy, Unknown, 07/19/14) GABAPENTIN (Verified Adverse Reaction, Intermediate, 07/20/14) Per patient, it makes him sweat, throws up, and "blacks out" Subjective leukocytosis, fevers seen by ID slightly short of breath last troponin negative creat down to normal Objective Last 24 Hour Vital Signs Date Time Temp Pulse Resp B/P (MAP) Pulse Ox O2 Delivery O2 Flow Rate FiO2 10/29/18 08:17 88 123/70 10/29/18 08:17 88 123/70 10/29/18 08:00 99.5 88 20 123/70 (87) 95 10/29/18 08:00 Nasal Cannula 2.0 10/29/18 05:25 99.0 10/29/18 04:00 99.0 73 20 111/56 (74) 95 10/29/18 04:00 Nasal Cannula 2.0 10/29/18 04:00 77 10/29/18 00:00 Nasal Cannula 2.0 10/29/18 00:00 77 10/29/18 00:00 98.6 76 20 113/62 (79) 96 10/28/18 21:30 64 18 94 Nasal Cannula 2.0 28 10/28/18 20:00 Nasal Cannula 2.0 10/28/18 20:00 99.5 80 20 123/70 (87) 99 10/28/18 20:00 85 10/28/18 18:40 76 120/60 10/28/18 16:00 99.1 76 20 115/74 (88) 96 10/28/18 16:00 77 10/28/18 16:00 Nasal Cannula 2.0 10/28/18 12:00 Room Air 10/28/18 12:00 72 10/28/18 12:00 98.2 81 21 102/64 (77) 94 10/28/18 09:32 81 113/68 10/28/18 09:32 81 113/68 Intake and Output 10/28/18 10/29/18 19:00 07:00 Intake Total 1537 ml 900 ml Output Total 710 ml 400 ml Balance 827 ml 500 ml Intake Oral 270 ml IV Total 1267 ml 900 ml Output Urine Total 710 ml 400 ml Objective General Appearance: no acute distress, A/A/O x 4 obese AA male HEENT: normocephalic, atraumatic, anicteric Respiratory/Chest: lungs clear with moderate air exchange, no accessory muscle use Cardiovascular: normal rate Abdomen: normal bowel sounds, soft, non tender , obese Extremities: no edema Neurologic/Psychiatric: alert, oriented x 3, responsive Microbiology Date/Time Source Procedure Growth Status 10/27/18 04:07 Blood Blood Culture - Preliminary Strep Agalactiae Group B Resulted 10/27/18 03:52 Blood Blood Culture - Preliminary Strep Agalactiae Group B Resulted 10/27/18 04:15 Nasal Nares - Final Complete 10/27/18 04:15 Nasal Nares - Final Complete Laboratory Tests 10/28/18 10:30: Troponin I 0.058H 10/29/18 03:23: Troponin I 0.037, White Blood Count 15.0H, Red Blood Count 3.71L, Hemoglobin 11.5L, Hematocrit 34.1L, Mean Corpuscular Volume 92, Mean Corpuscular Hemoglobin 30.9, Mean Corpuscular Hemoglobin Concent 33.6, Red Cell Distribution Width 12.1, Platelet Count 97L, Mean Platelet Volume 8.7, Neutrophils (%) (Auto) , Lymphocytes (%) (Auto) , Monocytes (%) (Auto) , Eosinophils (%) (Auto) , Basophils (%) (Auto) , Differential Total Cells Counted 100, Neutrophils % (Manual) 74, Lymphocytes % (Manual) 13L, Monocytes % (Manual) 11H, Eosinophils % (Manual) 0, Basophils % (Manual) 0, Band Neutrophils 2, Platelet Estimate DecreasedL, Platelet Morphology Normal, Red Blood Cell Morphology Normal, Sodium Level 137, Potassium Level 3.5, Chloride Level 106, Carbon Dioxide Level 21, Anion Gap 10, Blood Urea Nitrogen 19H, Creatinine 1.1, Estimat Glomerular Filtration Rate , Glucose Level 96, Calcium Level 8.5, Total Creatine Kinase 210 Current Medications Medications (Trade) Dose Ordered Sig/Sheba Route PRN Reason Start Time Stop Time Status Last Admin Dose Admin Albuterol/ Ipratropium (Albuterol/ Ipratropium) 3 ml Q4H PRN HHN Shortness of Breath 10/27/18 10:45 11/01/18 10:44 Amlodipine Besylate (Norvasc) 10 mg DAILY ORAL 10/28/18 09:00 11/27/18 08:59 10/29/18 08:17 Atenolol (Tenormin) 50 mg BID ORAL 10/27/18 18:00 11/26/18 17:59 10/29/18 08:17 Daptomycin 750 mg/ Sodium Chloride 55 ml @ 100 mls/hr Q24H IV 10/28/18 16:00 11/04/18 15:59 10/28/18 16:39 Diltiazem HCl (Cardizem) 10 mg Q1H PRN IV heart rate more than 120, 10/27/18 10:45 11/26/18 10:44 Divalproex Sodium (Depakote) 500 mg Q12HR ORAL 10/27/18 21:00 11/26/18 20:59 10/29/18 08:17 Enalaprilat (Vasotec) 2.5 mg Q6H PRN IV sbp more than 160 10/27/18 10:45 11/26/18 10:44 Hydromorphone HCl (Dilaudid) 0.5 mg Q3H PRN IVP MODERATE PAIN 10/28/18 09:03 11/04/18 09:02 Hydromorphone HCl (Dilaudid) 1 mg Q3H PRN IVP SEVERE PAIN 10/28/18 09:03 11/04/18 09:02 10/29/18 07:52 Iopamidol (Isovue-370 150ml) 150 ml NOW PRN INJ Radiology Procedure 10/27/18 04:00 Ondansetron HCl (Zofran) 4 mg Q6H PRN IVP Nausea & Vomiting 10/27/18 10:45 11/26/18 10:44 10/28/18 21:13 Polyethylene Glycol (Miralax) 17 gm DAILYPRN PRN ORAL Constipation 10/27/18 10:45 11/26/18 10:44 Sodium Chloride 1,000 ml @ 75 mls/hr [id number] IV 10/28/18 09:27 11/27/18 09:26 10/28/18 23:32 Temazepam (Restoril) 15 mg HSPRN PRN ORAL Insomnia 10/27/18 10:45 11/03/18 10:44 Mable Nicole NP Oct 29, 2018 09:30
--- NOTE | 2018-10-29 10:53 | NUR ---
NURSE NOTES: Patient complains of right hip pain, aching 8/10. Dilaudid 1mg given as ordered.
--- NOTE | 2018-10-29 11:23 | NUR ---
NURSE NOTES: Patient calm and asleep. No s/sx of pain noted.
--- NOTE | 2018-10-29 11:36 | Infectious Diseases Prog Note ---
Assessment/Plan Assessment/Plan Abx: IV Vancomycin 10/27- Cefepime 10/27- Assessment: Sepsis 2ry to Gram positive bacteremia (?source)- r/o endocarditis, aortic graft infection -10/27 BCx 2/2 GPC pairs and chains -CXR: Borderline cardiomegaly.Thoracic endograft again demonstrated. No definite acute process -CTA c/abd/p w/wo: Somewhat limited exam due to lack of inclusion of the pelvis within the imaging volume. Postsurgical changes, status post surgical repair of the ascending thoracic aorta, status post stent graft repair of descending thoracic aorta. No evidence of leakage for rupture. No acute abnormality. Dilated main and left main pulmonary artery, consistent with pulmonary arterial hypertension. Mild hazy pulmonary opacity and centrilobular interstitial septal thickening in the upper lobes, could indicate mild pulmonary edema. Fatty liver. Incidental findings as noted, including hepatic capsular calcifications, left renal cysts, probable small right renal cysts -2d Echo: no vegetations -u/a no pyuria, nit +, leuk +1 Fever; improving Leukocytosis; increased R Hip/back pain -L spine xray: No acute process. Mild degenerative changes -MRI hip: Mild degenerative changes of the right hip. No acute or significant osseous or joint abnormality otherwise. Incidental findings of small fat- containing right hernia and colonic diverticulosis pAfib s/p ablation 06/2017 HTN obesity R MCA thromboembolic stroke s/p laminectomy L TKR s/p revision and screw removal 06/2018 HTN s/p bioprosthetic AVR pain/somatization disorder aortic aneurysm s/p repair 2014, GERD drug-seeking behavior insomnia gout OA anxiety Plan: - Switch to Ceftriaxone for Strep bacteremia pending MICs - 10/29/18 SP Daptomycin #1 - 10/28/18 SP Vancomycin #2 to Daptomycin pending GPC ID and sensi (likely is Strep but needs to rule out VRE) - 10/28/18 SP Cefepime #2 -f/u cx -Monitor CBC/CMP, temperatures -Will need BENJAMIN to evaluate for endocarditis in setting of gram positive bacteremia and AVR -WBC scan to eval for aortic graft infection -Bcx x2 Thank you for this consultation. Will continue to follow along with you. Subjective Allergies: Coded Allergies: MORPHINE (Verified Allergy, Severe, 11/07/10) NITROGLYCERIN (Verified Allergy, Severe, 11/07/10) KETOROLAC (Unverified Allergy, Intermediate, 03/14/14) FISH CONTAINING PRODUCTS (Verified Allergy, Mild, 07/20/14) per patient, "it knocks me out" ACETAMINOPHEN (Unverified Allergy, Unknown, 07/19/14) CODEINE (Unverified Allergy, Unknown, 11/03/13) UNKNOWN DIPHENHYDRAMINE (Unverified Allergy, Unknown, 09/30/14) IBUPROFEN (Unverified Allergy, Unknown, 11/03/13) UNKNOWN PROCHLORPERAZINE (Unverified Allergy, Unknown, 07/19/14) GABAPENTIN (Verified Adverse Reaction, Intermediate, 07/20/14) Per patient, it makes him sweat, throws up, and "blacks out" Subjective Afebrile WBCs increasing Blood Cx growing Group B strep Objective Vital Signs Last 24 Hour Vital Signs Date Time Temp Pulse Resp B/P (MAP) Pulse Ox O2 Delivery O2 Flow Rate FiO2 10/29/18 08:17 88 123/70 10/29/18 08:17 88 123/70 10/29/18 08:00 99.5 88 20 123/70 (87) 95 10/29/18 08:00 86 10/29/18 08:00 Nasal Cannula 2.0 10/29/18 05:25 99.0 10/29/18 04:00 99.0 73 20 111/56 (74) 95 10/29/18 04:00 Nasal Cannula 2.0 10/29/18 04:00 77 10/29/18 00:00 Nasal Cannula 2.0 10/29/18 00:00 77 10/29/18 00:00 98.6 76 20 113/62 (79) 96 10/28/18 21:30 64 18 94 Nasal Cannula 2.0 28 10/28/18 20:00 Nasal Cannula 2.0 10/28/18 20:00 99.5 80 20 123/70 (87) 99 10/28/18 20:00 85 10/28/18 18:40 76 120/60 10/28/18 16:00 99.1 76 20 115/74 (88) 96 10/28/18 16:00 77 10/28/18 16:00 Nasal Cannula 2.0 10/28/18 12:00 Room Air 10/28/18 12:00 72 10/28/18 12:00 98.2 81 21 102/64 (77) 94 Height (Feet): 6 Height (Inches): 1.00 Weight (Pounds): 280 Objective GENERAL: The patient is awake and responsive, in no acute distress. HEAD AND NECK: Pupils are equal and reactive to light. Extraocular movements intact. LUNGS: CTAB, No W HEART: S1, S2. Distant heart sounds ABDOMEN: Soft, nondistended, and nontender. Morbidly obese. Microbiology Date/Time Source Procedure Growth Status 10/27/18 04:07 Blood Blood Culture - Preliminary Strep Agalactiae Group B Resulted 10/27/18 03:52 Blood Blood Culture - Preliminary Strep Agalactiae Group B Resulted 10/27/18 04:15 Nasal Nares - Final Complete 10/27/18 04:15 Nasal Nares - Final Complete Laboratory Tests Test 10/29/18 03:23 White Blood Count 15.0 K/UL (4.8-10.8) H Red Blood Count 3.71 M/UL (4.70-6.10) L Hemoglobin 11.5 G/DL (14.2-18.0) L Hematocrit 34.1 % (42.0-52.0) L Mean Corpuscular Volume 92 FL (80-99) Mean Corpuscular Hemoglobin 30.9 PG (27.0-31.0) Mean Corpuscular Hemoglobin Concent 33.6 G/DL (32.0-36.0) Red Cell Distribution Width 12.1 % (11.6-14.8) Platelet Count 97 K/UL (150-450) L Mean Platelet Volume 8.7 FL (6.5-10.1) Neutrophils (%) (Auto) % (45.0-75.0) Lymphocytes (%) (Auto) % (20.0-45.0) Monocytes (%) (Auto) % (1.0-10.0) Eosinophils (%) (Auto) % (0.0-3.0) Basophils (%) (Auto) % (0.0-2.0) Differential Total Cells Counted 100 Neutrophils % (Manual) 74 % (45-75) Lymphocytes % (Manual) 13 % (20-45) L Monocytes % (Manual) 11 % (1-10) H Eosinophils % (Manual) 0 % (0-3) Basophils % (Manual) 0 % (0-2) Band Neutrophils 2 % (0-8) Platelet Estimate Decreased L Platelet Morphology Normal Red Blood Cell Morphology Normal Sodium Level 137 MMOL/L (136-145) Potassium Level 3.5 MMOL/L (3.5-5.1) Chloride Level 106 MMOL/L (98-107) Carbon Dioxide Level 21 MMOL/L (21-32) Anion Gap 10 mmol/L (5-15) Blood Urea Nitrogen 19 mg/dL (7-18) H Creatinine 1.1 MG/DL (0.55-1.30) Estimat Glomerular Filtration Rate mL/min (>60) Glucose Level 96 MG/DL (74-106) Calcium Level 8.5 MG/DL (8.5-10.1) Total Creatine Kinase 210 U/L (26-308) Troponin I 0.037 ng/mL (0.000-0.056) Current Medications Medications (Trade) Dose Ordered Sig/Sheba Route PRN Reason Start Time Stop Time Status Last Admin Dose Admin Albuterol/ Ipratropium (Albuterol/ Ipratropium) 3 ml Q4H PRN HHN Shortness of Breath 10/27/18 10:45 11/01/18 10:44 Amlodipine Besylate (Norvasc) 10 mg DAILY ORAL 10/30/18 09:00 11/27/18 08:59 Atenolol (Tenormin) 50 mg BID ORAL 10/29/18 18:00 11/26/18 17:59 Daptomycin 750 mg/ Sodium Chloride 55 ml @ 100 mls/hr Q24H IV 10/28/18 16:00 11/04/18 15:59 10/28/18 16:39 Diltiazem HCl (Cardizem) 10 mg Q1H PRN IV heart rate more than 120, 10/27/18 10:45 11/26/18 10:44 Divalproex Sodium (Depakote) 500 mg Q12HR ORAL 10/27/18 21:00 11/26/18 20:59 10/29/18 08:17 Enalaprilat (Vasotec) 2.5 mg Q6H PRN IV sbp more than 160 10/27/18 10:45 11/26/18 10:44 Hydromorphone HCl (Dilaudid) 0.5 mg Q3H PRN IVP MODERATE PAIN 10/28/18 09:03 11/04/18 09:02 Hydromorphone HCl (Dilaudid) 1 mg Q3H PRN IVP SEVERE PAIN 10/28/18 09:03 11/04/18 09:02 10/29/18 10:53 Iopamidol (Isovue-370 150ml) 150 ml NOW PRN INJ Radiology Procedure 10/27/18 04:00 Ondansetron HCl (Zofran) 4 mg Q6H PRN IVP Nausea & Vomiting 10/27/18 10:45 11/26/18 10:44 10/28/18 21:13 Polyethylene Glycol (Miralax) 17 gm DAILYPRN PRN ORAL Constipation 10/27/18 10:45 11/26/18 10:44 Temazepam (Restoril) 15 mg HSPRN PRN ORAL Insomnia 10/27/18 10:45 11/03/18 10:44 Thomas Nino MD Oct 29, 2018 11:36
--- NOTE | 2018-10-29 12:15 | NUR ---
NURSE NOTES: Seen by Dr. Nino and assessed patient.
[2018-10-29] MEDS: cefTRIAXone 2 GM in D5W 55 ML IVPB SCH (13:31)
--- NOTE | 2018-10-29 13:58 | NUR ---
NURSE NOTES: Patient complains of right hip pain, aching 8/10. Dilaudid 1mg given as ordered.
--- NOTE | 2018-10-29 14:23 | Cardiology Progress Note ---
Assessment/Plan Problem List: (1) Paroxysmal atrial fibrillation Assessment & Plan: s/p ablation. He had SR w/ PACs on adm. 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 gu source. r/o endocarditis (6) S/P aortic valve replacement Status: stable, unchanged Assessment/Plan Mr Lujan has gp b strep bacteremia, ? gu source. He is on iv antibiotics per ID. Would agree w/ rec for BENJAMIN to r/o endocarditis. He has bioprosthetic aortic valve Continue anticoagulation for PAF. Rhythm stable on telemetry He has CP, which is chronic, unchanged, and may be neuropathic Subjective ROS Limited/Unobtainable: No Subjective Cardiology/ EP Mr. Lujan is known to me from the office and previous hospitalizations. He has a hx of aortic aneurysm repair and AVR, hx of CVA , HTN, obesity, and also hx of PAF, s/p catheter ablation in 06/2017. He has chronic CP, and has had negative evaluations for ischemia, dissection, PE in the past year at [facility] He is adm w/ R hip pain and weakness. He has been diagnosed w/ UTI and gp b strep bacteremia. Today, he c/o R hip pain, difficulty weight bearing, and CP, Objective Last 24 Hour Vital Signs Date Time Temp Pulse Resp B/P (MAP) Pulse Ox O2 Delivery O2 Flow Rate FiO2 10/29/18 13:20 79 18 95 Nasal Cannula 2.0 28 10/29/18 12:00 Nasal Cannula 2.0 10/29/18 12:00 88 10/29/18 08:17 88 123/70 10/29/18 08:17 88 123/70 10/29/18 08:00 99.5 88 20 123/70 (87) 95 10/29/18 08:00 86 10/29/18 08:00 Nasal Cannula 2.0 10/29/18 05:25 99.0 10/29/18 04:00 99.0 73 20 111/56 (74) 95 10/29/18 04:00 Nasal Cannula 2.0 10/29/18 04:00 77 10/29/18 00:00 Nasal Cannula 2.0 10/29/18 00:00 77 10/29/18 00:00 98.6 76 20 113/62 (79) 96 10/28/18 21:30 64 18 94 Nasal Cannula 2.0 28 10/28/18 20:00 Nasal Cannula 2.0 10/28/18 20:00 99.5 80 20 123/70 (87) 99 10/28/18 20:00 85 10/28/18 18:40 76 120/60 10/28/18 16:00 99.1 76 20 115/74 (88) 96 10/28/18 16:00 77 10/28/18 16:00 Nasal Cannula 2.0 General Appearance: WD/WN, alert, obese EENT: PERRL/EOMI Neck: supple, no JVD Rhythm: NSR Cardiovascular: normal peripheral pulses, normal rate, regular rhythm, systolic murmur Respiratory/Chest: lungs clear - clear anteriorly Abdomen: non tender, soft, no mass Intake and Output 10/28/18 10/29/18 19:00 07:00 Intake Total 1537 ml 900 ml Output Total 710 ml 400 ml Balance 827 ml 500 ml Intake Oral 270 ml IV Total 1267 ml 900 ml Output Urine Total 710 ml 400 ml Laboratory Tests Test 10/29/18 03:23 White Blood Count 15.0 K/UL (4.8-10.8) H Red Blood Count 3.71 M/UL (4.70-6.10) L Hemoglobin 11.5 G/DL (14.2-18.0) L Hematocrit 34.1 % (42.0-52.0) L Mean Corpuscular Volume 92 FL (80-99) Mean Corpuscular Hemoglobin 30.9 PG (27.0-31.0) Mean Corpuscular Hemoglobin Concent 33.6 G/DL (32.0-36.0) Red Cell Distribution Width 12.1 % (11.6-14.8) Platelet Count 97 K/UL (150-450) L Mean Platelet Volume 8.7 FL (6.5-10.1) Neutrophils (%) (Auto) % (45.0-75.0) Lymphocytes (%) (Auto) % (20.0-45.0) Monocytes (%) (Auto) % (1.0-10.0) Eosinophils (%) (Auto) % (0.0-3.0) Basophils (%) (Auto) % (0.0-2.0) Differential Total Cells Counted 100 Neutrophils % (Manual) 74 % (45-75) Lymphocytes % (Manual) 13 % (20-45) L Monocytes % (Manual) 11 % (1-10) H Eosinophils % (Manual) 0 % (0-3) Basophils % (Manual) 0 % (0-2) Band Neutrophils 2 % (0-8) Platelet Estimate Decreased L Platelet Morphology Normal Red Blood Cell Morphology Normal Sodium Level 137 MMOL/L (136-145) Potassium Level 3.5 MMOL/L (3.5-5.1) Chloride Level 106 MMOL/L (98-107) Carbon Dioxide Level 21 MMOL/L (21-32) Anion Gap 10 mmol/L (5-15) Blood Urea Nitrogen 19 mg/dL (7-18) H Creatinine 1.1 MG/DL (0.55-1.30) Estimat Glomerular Filtration Rate mL/min (>60) Glucose Level 96 MG/DL (74-106) Calcium Level 8.5 MG/DL (8.5-10.1) Total Creatine Kinase 210 U/L (26-308) Troponin I 0.037 ng/mL (0.000-0.056) Microbiology Date/Time Source Procedure Growth Status 10/27/18 04:07 Blood Blood Culture - Preliminary Strep Agalactiae Group B Resulted 10/27/18 03:52 Blood Blood Culture - Preliminary Strep Agalactiae Group B Resulted 10/27/18 04:15 Nasal Nares - Final Complete 10/27/18 04:15 Nasal Nares - Final Complete Karyna Wheatley MD Oct 29, 2018 14:23
--- NOTE | 2018-10-29 14:28 | NUR ---
NURSE NOTES: Patient is watching TV. No s/sx of pain noted.
--- NOTE | 2018-10-29 14:48 | Cardiology Report ---
APPROVED REPORT EKG Measurement Heart [id number] [id number] Sinus rhythm with premature supraventricular complexes Left anterior fascicular block Septal infarct, age undetermined Abnormal ECG
--- NOTE | 2018-10-29 16:58 | NUR ---
NURSE NOTES: Provided non-pharmacological method. Patient still complains of right hip pain again, aching 10/22. Dilaudid 1mg given as ordered.
--- NOTE | 2018-10-29 17:28 | NUR ---
NURSE NOTES: Patient is watching TV and no complains of pain at this time. Will continue plan of care.
--- NOTE | 2018-10-29 19:10 | NUR ---
HAND-OFF: Report given to KRYSTIAN Hyde. Endorsed plan of care.
--- NOTE | 2018-10-29 19:11 | NUR ---
NURSE NOTES: Endorsement received from KRYSTIAN Bowie. Patient alert and oriented x4. Patient reported 7/10 pain score at right hip at this time. Informed him that pain medication is due at 2000H. Verbalized understanding. Assisted on repositioning for comfort. On 2 LPM oxygen per nasal cannula. No shortness of breath at this time. With left forearm g 20. Head of bed elevated. Bed alarm on. Call light within reach. Reminded patient to use call light. Will continue to monitor.
--- NOTE | 2018-10-29 20:00 | NUR ---
NURSE NOTES: PRN dilaudid given. Will reassess.
--- NOTE | 2018-10-29 21:00 | NUR ---
NURSE NOTES: Assisted patient with changing linens and gown.
--- NOTE | 2018-10-29 21:31 | Internal Med Progress Note ---
Subjective Physician Name Tao Marcial Attending Physician Tao Marcial MD Current Medications Medications (Trade) Dose Ordered Sig/Sehba Route PRN Reason Start Time Stop Time Status Last Admin Dose Admin Albuterol/ Ipratropium (Albuterol/ Ipratropium) 3 ml Q4H PRN HHN Shortness of Breath 10/27/18 10:45 11/01/18 10:44 Amlodipine Besylate (Norvasc) 10 mg DAILY ORAL 10/30/18 09:00 11/27/18 08:59 Atenolol (Tenormin) 50 mg BID ORAL 10/29/18 18:00 11/26/18 17:59 Ceftriaxone Sodium 2 gm/ Dextrose 55 ml @ 110 mls/hr Q24H IVPB 10/29/18 13:00 11/05/18 12:59 10/29/18 13:31 Diltiazem HCl (Cardizem) 10 mg Q1H PRN IV heart rate more than 120, 10/27/18 10:45 11/26/18 10:44 Divalproex Sodium (Depakote) 500 mg Q12HR ORAL 10/27/18 21:00 11/26/18 20:59 10/29/18 20:05 Enalaprilat (Vasotec) 2.5 mg Q6H PRN IV sbp more than 160 10/27/18 10:45 11/26/18 10:44 Hydromorphone HCl (Dilaudid) 0.5 mg Q3H PRN IVP MODERATE PAIN 10/28/18 09:03 11/04/18 09:02 Hydromorphone HCl (Dilaudid) 1 mg Q3H PRN IVP SEVERE PAIN 10/28/18 09:03 11/04/18 09:02 10/29/18 20:05 Iopamidol (Isovue-370 150ml) 150 ml NOW PRN INJ Radiology Procedure 10/27/18 04:00 Ondansetron HCl (Zofran) 4 mg Q6H PRN IVP Nausea & Vomiting 10/27/18 10:45 11/26/18 10:44 10/28/18 21:13 Polyethylene Glycol (Miralax) 17 gm DAILYPRN PRN ORAL Constipation 10/27/18 10:45 11/26/18 10:44 Temazepam (Restoril) 15 mg HSPRN PRN ORAL Insomnia 10/27/18 10:45 11/03/18 10:44 Allergies: Coded Allergies: MORPHINE (Verified Allergy, Severe, 11/07/10) NITROGLYCERIN (Verified Allergy, Severe, 11/07/10) KETOROLAC (Unverified Allergy, Intermediate, 03/14/14) FISH CONTAINING PRODUCTS (Verified Allergy, Mild, 07/20/14) per patient, "it knocks me out" ACETAMINOPHEN (Unverified Allergy, Unknown, 07/19/14) CODEINE (Unverified Allergy, Unknown, 11/03/13) UNKNOWN DIPHENHYDRAMINE (Unverified Allergy, Unknown, 09/30/14) IBUPROFEN (Unverified Allergy, Unknown, 11/03/13) UNKNOWN PROCHLORPERAZINE (Unverified Allergy, Unknown, 07/19/14) GABAPENTIN (Verified Adverse Reaction, Intermediate, 07/20/14) Per patient, it makes him sweat, throws up, and "blacks out" Subjective awake, alert, responsive, C/O less right hip pain, NAD, No CP or SOB, feeling better but still very weak, WBC: 15.0, PLT: 97. Objective Last Vital Signs Date Time Temp Pulse Resp B/P (MAP) Pulse Ox O2 Delivery O2 Flow Rate FiO2 10/29/18 20:00 86 10/29/18 20:00 Nasal Cannula 2.0 10/29/18 20:00 98.1 20 121/73 (89) 95 10/29/18 19:01 28 Laboratory Tests Test 10/29/18 03:23 White Blood Count 15.0 K/UL (4.8-10.8) H Red Blood Count 3.71 M/UL (4.70-6.10) L Hemoglobin 11.5 G/DL (14.2-18.0) L Hematocrit 34.1 % (42.0-52.0) L Mean Corpuscular Volume 92 FL (80-99) Mean Corpuscular Hemoglobin 30.9 PG (27.0-31.0) Mean Corpuscular Hemoglobin Concent 33.6 G/DL (32.0-36.0) Red Cell Distribution Width 12.1 % (11.6-14.8) Platelet Count 97 K/UL (150-450) L Mean Platelet Volume 8.7 FL (6.5-10.1) Neutrophils (%) (Auto) % (45.0-75.0) Lymphocytes (%) (Auto) % (20.0-45.0) Monocytes (%) (Auto) % (1.0-10.0) Eosinophils (%) (Auto) % (0.0-3.0) Basophils (%) (Auto) % (0.0-2.0) Differential Total Cells Counted 100 Neutrophils % (Manual) 74 % (45-75) Lymphocytes % (Manual) 13 % (20-45) L Monocytes % (Manual) 11 % (1-10) H Eosinophils % (Manual) 0 % (0-3) Basophils % (Manual) 0 % (0-2) Band Neutrophils 2 % (0-8) Platelet Estimate Decreased L Platelet Morphology Normal Red Blood Cell Morphology Normal Sodium Level 137 MMOL/L (136-145) Potassium Level 3.5 MMOL/L (3.5-5.1) Chloride Level 106 MMOL/L (98-107) Carbon Dioxide Level 21 MMOL/L (21-32) Anion Gap 10 mmol/L (5-15) Blood Urea Nitrogen 19 mg/dL (7-18) H Creatinine 1.1 MG/DL (0.55-1.30) Estimat Glomerular Filtration Rate mL/min (>60) Glucose Level 96 MG/DL (74-106) Calcium Level 8.5 MG/DL (8.5-10.1) Total Creatine Kinase 210 U/L (26-308) Troponin I 0.037 ng/mL (0.000-0.056) Microbiology Date/Time Source Procedure Growth Status 10/27/18 04:07 Blood Blood Culture - Preliminary Strep Agalactiae Group B Resulted 10/27/18 03:52 Blood Blood Culture - Preliminary Strep Agalactiae Group B Resulted 10/27/18 04:15 Nasal Nares - Final Complete 10/27/18 04:15 Nasal Nares - Final Complete Intake and Output 10/28/18 10/29/18 18:59 06:59 Intake Total 1462 ml 900 ml Output Total 710 ml 400 ml Balance 752 ml 500 ml Intake Oral 270 ml IV Total 1192 ml 900 ml Output Urine Total 710 ml 400 ml Objective General: No acute distress, awake and alert HEENT: NCAT, sclera anicteric, PERRL, EOMI. Neck: Supple, no significant jugular venous distention, Lungs: Good inspiratory effort, decrease air at bases,, no Wheeze or Rales. Heart: Regular rate and rhythm, normal S1/S2, no murmurs Abdomen: soft, nontender, nondistended. Normoactive bowel sounds, obesity, Right hip pain. / Rectal: Refused and deferred. Extremities: No Cyanosis , clubbing or edema. Neuro: A&O x 3, Able to move all extremities Skin: warm, no rashes or lesions Psych: Normal mood and affect Assessment/Plan Assessment/Plan 1. Sepsis 2ry to Gram positive bacteremia - r/o endocarditis, aortic graft infection -10/27 BCx 2/2 GPC --> STREP AGALACTIAE GROUP B 2. Urinary tract infection with lactic acidosis. 3. Right hip pain. 4. Coronary artery disease. 5. 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 6. Hypertension. 7. History of cervical disk disease with myelopathy. 8. Aortic valve replacement. 9. Descending aortic aneurysm repair. 10.Thrombocytopenia. PLAN: in [facility] Monitor labs and cultures. Abx: DC Daptomycin, start Rocephin Hold Eliquis due to thrombocytopenia Code status is Full Code. DVT prophylaxis: SCD OOB to chair, PT mobility. Tao Marcial MD Oct 29, 2018 21:31
[2018-10-30] VITALS: BP 116/75
--- NOTE | 2018-10-30 | NUR ---
NURSE NOTES: No shortness of breath. Patient reports pain at hips. Assisted to reposition, supported affected site withh pillows, redirected with tv, relaxation techniques, still continuously requests for pain medication. PRN dilaudid given as needed.
[2018-10-30] MEDS: HYDROmorphone 1mg/ml Carpuject IVP PRN ×8 (02:17→23:37)
[2018-10-30 04:00] VITALS: BP 114/69
--- NOTE | 2018-10-30 07:26 | NUR ---
HAND-OFF: Report given to KRYSTIAN Dominguez.
--- NOTE | 2018-10-30 07:35 | NUR ---
NURSE NOTES: Received report from Hany Callejas RN. Patient alert and oriented x 4, able to follow commands and make needs known. Receiving O2 via nasal cannula @ 2L/min, respirations even and unlabored. Left forearm 20g saline lock intact and asymptomatic. Bed locked in lowest position with side rails up x 3. All needs attended to. Call light within reach. Will continue to monitor.
[2018-10-30 08:00] VITALS: BP 125/64
[2018-10-30] MEDS: Depakote 500mg tab ORAL SCH ×2 (08:30→20:28)
--- NOTE | 2018-10-30 09:56 | Pulmonology Progress Note ---
Assessment/Plan Assessment/Plan ASSESSMENT Chest pain, rule out acute coronary syndrome with elevated troponin Sepsis with Strep group B bacteremia r/o endocarditis, aortic graft infection Hypertension PAF, s/p ablation 06/2017 s/p bioprosthetic AVR HTN obesity R MCA thromboembolic stroke s/p laminectomy L TKR s/p revision and screw removal 06/2018 Pain/somatization disorder Coronary artery disease Acute kidney injury Right hip pain Thalamic pain syndrome Thrombocytopenia PLAN OF CARE KYE ECHO with pEF 60% , mild pulmonary hypertension , no evidence of vegetation cardio follows troponin levels flat, trending down , last negative per cardio, CP atypical beta blockage a/coagulation with Eliquis resumed, PLT trending down , Eliquis stopped 10/28. PLT up to 97 further a/coagulation ? - per cardio recommendations , will need to be off for BENJAMIN anyway CT C/A/P- no acute findings BP management with CCB and BB on O2 now, O2 titrate to keep pulse ox above 92% , HHN prn venous Duplex BLE off IVF BC + Strep Group B ID follows abx as per ID recs CXR unremarkable, UA unremarkable r/o endocarditis, aortic graft infection: ECHO noted, no vegetation, CT C/A/P -noted, no acute findings , stent in place, no evidence of leakage or rupture BENJAMIN pending gallium scan test pending MRI R hip mild degenerative disease, no acute findings X ray L spine no acute findings, mild DDD pain management MARLY resolved, off IVF, avoid nephrotoxic, monitor lytes, renal parameters additional K today case discussed and evaluated by supervising physician Subjective Allergies: Coded Allergies: MORPHINE (Verified Allergy, Severe, 11/07/10) NITROGLYCERIN (Verified Allergy, Severe, 11/07/10) KETOROLAC (Unverified Allergy, Intermediate, 03/14/14) FISH CONTAINING PRODUCTS (Verified Allergy, Mild, 07/20/14) per patient, "it knocks me out" ACETAMINOPHEN (Unverified Allergy, Unknown, 07/19/14) CODEINE (Unverified Allergy, Unknown, 11/03/13) UNKNOWN DIPHENHYDRAMINE (Unverified Allergy, Unknown, 09/30/14) IBUPROFEN (Unverified Allergy, Unknown, 11/03/13) UNKNOWN PROCHLORPERAZINE (Unverified Allergy, Unknown, 07/19/14) GABAPENTIN (Verified Adverse Reaction, Intermediate, 07/20/14) Per patient, it makes him sweat, throws up, and "blacks out" Subjective leukocytosis trending down , febrile last troponin negative creat down to normal Objective Last 24 Hour Vital Signs Date Time Temp Pulse Resp B/P (MAP) Pulse Ox O2 Delivery O2 Flow Rate FiO2 10/30/18 08:30 82 125/64 10/30/18 08:30 82 125/64 10/30/18 08:00 100.9 82 17 125/64 (84) 98 10/30/18 07:02 68 18 96 Nasal Cannula 2.0 28 10/30/18 05:50 100.0 10/30/18 04:00 Nasal Cannula 2.0 10/30/18 04:00 100.0 79 20 114/69 (84) 96 10/30/18 03:33 77 10/30/18 00:00 Nasal Cannula 2.0 10/30/18 00:00 98.7 79 20 116/75 (89) 96 10/29/18 23:34 79 10/29/18 20:00 86 10/29/18 20:00 Nasal Cannula 2.0 10/29/18 20:00 98.1 81 20 121/73 (89) 95 10/29/18 19:01 76 18 97 Nasal Cannula 2.0 28 10/29/18 17:17 75 110/65 10/29/18 16:00 98.8 75 18 110/65 (80) 96 10/29/18 16:00 Nasal Cannula 2.0 10/29/18 15:46 75 10/29/18 13:20 79 18 95 Nasal Cannula 2.0 28 10/29/18 12:00 Nasal Cannula 2.0 10/29/18 12:00 99.1 75 18 105/72 (83) 95 10/29/18 12:00 88 Intake and Output 10/29/18 10/30/18 19:00 07:00 Intake Total 186 ml Output Total 650 ml Balance 186 ml -650 ml IV Total 186 ml Output Urine Total 650 ml Objective General Appearance: no acute distress, A/A/O x 4 obese AA male HEENT: normocephalic, atraumatic, anicteric Respiratory/Chest: lungs clear with moderate air exchange, no accessory muscle use Cardiovascular: normal rate Abdomen: normal bowel sounds, soft, non tender , obese Extremities: no edema Neurologic/Psychiatric: alert, oriented x 3, responsive Microbiology Date/Time Source Procedure Growth Status 10/28/18 15:25 Blood Blood Culture - Preliminary NO GROWTH AFTER 24 HOURS Resulted 10/28/18 15:20 Blood Blood Culture - Preliminary NO GROWTH AFTER 24 HOURS Resulted Current Medications Medications (Trade) Dose Ordered Sig/Sheba Route PRN Reason Start Time Stop Time Status Last Admin Dose Admin Albuterol/ Ipratropium (Albuterol/ Ipratropium) 3 ml Q4H PRN HHN Shortness of Breath 10/27/18 10:45 11/01/18 10:44 Amlodipine Besylate (Norvasc) 10 mg DAILY ORAL 10/30/18 09:00 11/27/18 08:59 10/30/18 08:30 Atenolol (Tenormin) 50 mg BID ORAL 10/29/18 18:00 11/26/18 17:59 10/30/18 08:30 Ceftriaxone Sodium 2 gm/ Dextrose 55 ml @ 110 mls/hr Q24H IVPB 10/29/18 13:00 11/05/18 12:59 10/29/18 13:31 Diltiazem HCl (Cardizem) 10 mg Q1H PRN IV heart rate more than 120, 10/27/18 10:45 11/26/18 10:44 Divalproex Sodium (Depakote) 500 mg Q12HR ORAL 10/27/18 21:00 11/26/18 20:59 10/30/18 08:30 Enalaprilat (Vasotec) 2.5 mg Q6H PRN IV sbp more than 160 10/27/18 10:45 11/26/18 10:44 Hydromorphone HCl (Dilaudid) 0.5 mg Q3H PRN IVP MODERATE PAIN 10/28/18 09:03 11/04/18 09:02 Hydromorphone HCl (Dilaudid) 1 mg Q3H PRN IVP SEVERE PAIN 10/28/18 09:03 11/04/18 09:02 10/30/18 08:27 Iopamidol (Isovue-370 150ml) 150 ml NOW PRN INJ Radiology Procedure 10/27/18 04:00 Ondansetron HCl (Zofran) 4 mg Q6H PRN IVP Nausea & Vomiting 10/27/18 10:45 11/26/18 10:44 10/28/18 21:13 Polyethylene Glycol (Miralax) 17 gm DAILYPRN PRN ORAL Constipation 10/27/18 10:45 11/26/18 10:44 Temazepam (Restoril) 15 mg HSPRN PRN ORAL Insomnia 10/27/18 10:45 11/03/18 10:44 Mable Nicole NP Oct 30, 2018 09:56
[2018-10-30] MEDS ORDERED: Albuterol/Ipratropium 3ml neb HHN PRN ×2 (10:45→15:00)
[2018-10-30 11:01] LABS: HEMATOCRIT 35.6 % (42.0-52.0); HEMOGLOBIN 11.6 G/DL (14.2-18.0); MEAN CORPUSCULAR VOLUME 92 FL (80-99); PLATELET COUNT 98 K/UL (150-450); RED BLOOD COUNT 3.86 M/UL (4.70-6.10); RED CELL DISTRIBUTION WIDTH 12.3 % (11.6-14.8); WHITE BLOOD COUNT 12.5 K/UL (4.8-10.8)
[2018-10-30 11:09] LABS: ANION GAP 6 mmol/L (5-15); BLOOD UREA NITROGEN 17 mg/dL (7-18); CALCIUM 8.3 MG/DL (8.5-10.1); CARBON DIOXIDE 25 MMOL/L (21-32); CHLORIDE 106 MMOL/L (98-107); CREATININE 1.1 MG/DL (0.55-1.30); POTASSIUM 3.4 MMOL/L (3.5-5.1); SODIUM 137 MMOL/L (136-145)
[2018-10-30 12:00] VITALS: BP 118/64
[2018-10-30] MEDS: cefTRIAXone 2 GM in D5W 55 ML IVPB SCH (13:27)
--- NOTE | 2018-10-30 14:37 | Cardiology Progress Note ---
Assessment/Plan Problem List: (1) Paroxysmal atrial fibrillation Assessment & Plan: s/p ablation. He had SR w/ PACs on adm. 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 gu source. r/o endocarditis (6) S/P aortic valve replacement Status: stable, unchanged Status Narrative Mr. Lujan remains febrile and w/ leukocytosis. group b strep UTI and bacteremia- r/o aortic graft or prosthetic valve infection. PAF - s/p ablation s/p AVR, ascending aortic graft for dissection hx of cVA hx of chronic chest pain, felt to be noncardiac, possibly neuropathic Assessment/Plan Mr Lujan has gp b strep bacteremia and UTI He is on iv antibiotics per ID. will d/w Dr. Palacio - BENJAMIN to r/o endocarditis Continue anticoagulation for PAF. Rhythm stable on telemetry Continue atenolol, amlodipine for htn Subjective ROS Limited/Unobtainable: No Subjective Cardiology/ EP Mr. Lujan is sedated. Events noted Objective Last 24 Hour Vital Signs Date Time Temp Pulse Resp B/P (MAP) Pulse Ox O2 Delivery O2 Flow Rate FiO2 10/30/18 12:00 99.3 75 20 118/64 (82) 98 10/30/18 12:00 Room Air 10/30/18 11:49 69 10/30/18 08:57 100.0 10/30/18 08:30 82 125/64 10/30/18 08:30 82 125/64 10/30/18 08:00 100.9 82 17 125/64 (84) 98 10/30/18 08:00 Nasal Cannula 2.0 10/30/18 07:43 84 10/30/18 07:02 68 18 96 Nasal Cannula 2.0 28 10/30/18 04:00 Nasal Cannula 2.0 10/30/18 04:00 100.0 79 20 114/69 (84) 96 10/30/18 03:33 77 10/30/18 00:00 Nasal Cannula 2.0 10/30/18 00:00 98.7 79 20 116/75 (89) 96 10/29/18 23:34 79 10/29/18 20:00 86 10/29/18 20:00 Nasal Cannula 2.0 10/29/18 20:00 98.1 81 20 121/73 (89) 95 10/29/18 19:01 76 18 97 Nasal Cannula 2.0 28 10/29/18 17:17 75 110/65 10/29/18 16:00 98.8 75 18 110/65 (80) 96 10/29/18 16:00 Nasal Cannula 2.0 10/29/18 15:46 75 General Appearance: WD/WN, no apparent distress EENT: PERRL/EOMI Neck: no JVD Rhythm: NSR Cardiovascular: normal rate, regular rhythm, other - RRR s1s2 with ii/vi NESHA along LSB. no s3, s4 Respiratory/Chest: other - bilat scattered rhonchi and few expir wheezes Abdomen: normal bowel sounds, non tender, soft Extremities: no swelling Intake and Output 10/29/18 10/30/18 19:00 07:00 Intake Total 186 ml Output Total 650 ml Balance 186 ml -650 ml IV Total 186 ml Output Urine Total 650 ml Laboratory Tests Test 10/30/18 10:30 White Blood Count 12.5 K/UL (4.8-10.8) H Red Blood Count 3.86 M/UL (4.70-6.10) L Hemoglobin 11.6 G/DL (14.2-18.0) L Hematocrit 35.6 % (42.0-52.0) L Mean Corpuscular Volume 92 FL (80-99) Mean Corpuscular Hemoglobin 30.0 PG (27.0-31.0) Mean Corpuscular Hemoglobin Concent 32.5 G/DL (32.0-36.0) Red Cell Distribution Width 12.3 % (11.6-14.8) Platelet Count 98 K/UL (150-450) L Mean Platelet Volume 7.5 FL (6.5-10.1) Neutrophils (%) (Auto) % (45.0-75.0) Lymphocytes (%) (Auto) % (20.0-45.0) Monocytes (%) (Auto) % (1.0-10.0) Eosinophils (%) (Auto) % (0.0-3.0) Basophils (%) (Auto) % (0.0-2.0) Differential Total Cells Counted 100 Neutrophils % (Manual) 78 % (45-75) H Lymphocytes % (Manual) 11 % (20-45) L Monocytes % (Manual) 11 % (1-10) H Eosinophils % (Manual) 0 % (0-3) Basophils % (Manual) 0 % (0-2) Band Neutrophils 0 % (0-8) Platelet Estimate Decreased L Platelet Morphology Normal Red Blood Cell Morphology Normal Sodium Level 137 MMOL/L (136-145) Potassium Level 3.4 MMOL/L (3.5-5.1) L Chloride Level 106 MMOL/L (98-107) Carbon Dioxide Level 25 MMOL/L (21-32) Anion Gap 6 mmol/L (5-15) Blood Urea Nitrogen 17 mg/dL (7-18) Creatinine 1.1 MG/DL (0.55-1.30) Estimat Glomerular Filtration Rate mL/min (>60) Glucose Level 142 MG/DL (74-106) H Calcium Level 8.3 MG/DL (8.5-10.1) L Microbiology Date/Time Source Procedure Growth Status 10/28/18 15:25 Blood Blood Culture - Preliminary NO GROWTH AFTER 24 HOURS Resulted 10/28/18 15:20 Blood Blood Culture - Preliminary NO GROWTH AFTER 24 HOURS Resulted Karyna Wheatley MD Oct 30, 2018 14:37
--- NOTE | 2018-10-30 15:03 | Internal Med Progress Note ---
Subjective Physician Name Tao Marcial Attending Physician Tao Marcial MD Current Medications Medications (Trade) Dose Ordered Sig/Sheba Route PRN Reason Start Time Stop Time Status Last Admin Dose Admin Albuterol/ Ipratropium (Albuterol/ Ipratropium) 3 ml Q4H PRN HHN Shortness of Breath 10/30/18 10:45 11/04/18 10:44 Amlodipine Besylate (Norvasc) 10 mg DAILY ORAL 10/30/18 09:00 11/27/18 08:59 10/30/18 08:30 Atenolol (Tenormin) 50 mg BID ORAL 10/29/18 18:00 11/26/18 17:59 10/30/18 08:30 Ceftriaxone Sodium 2 gm/ Dextrose 55 ml @ 110 mls/hr Q24H IVPB 10/29/18 13:00 11/05/18 12:59 10/30/18 13:27 Diltiazem HCl (Cardizem) 10 mg Q1H PRN IV heart rate more than 120, 10/27/18 10:45 11/26/18 10:44 Divalproex Sodium (Depakote) 500 mg Q12HR ORAL 10/27/18 21:00 11/26/18 20:59 10/30/18 08:30 Enalaprilat (Vasotec) 2.5 mg Q6H PRN IV sbp more than 160 10/27/18 10:45 11/26/18 10:44 Hydromorphone HCl (Dilaudid) 0.5 mg Q3H PRN IVP MODERATE PAIN 10/28/18 09:03 11/04/18 09:02 Hydromorphone HCl (Dilaudid) 1 mg Q3H PRN IVP SEVERE PAIN 10/28/18 09:03 11/04/18 09:02 10/30/18 14:49 Iopamidol (Isovue-370 150ml) 150 ml NOW PRN INJ Radiology Procedure 10/27/18 04:00 Ondansetron HCl (Zofran) 4 mg Q6H PRN IVP Nausea & Vomiting 10/27/18 10:45 11/26/18 10:44 10/28/18 21:13 Polyethylene Glycol (Miralax) 17 gm DAILYPRN PRN ORAL Constipation 10/27/18 10:45 11/26/18 10:44 Temazepam (Restoril) 15 mg HSPRN PRN ORAL Insomnia 10/27/18 10:45 11/03/18 10:44 Allergies: Coded Allergies: MORPHINE (Verified Allergy, Severe, 11/07/10) NITROGLYCERIN (Verified Allergy, Severe, 11/07/10) KETOROLAC (Unverified Allergy, Intermediate, 03/14/14) FISH CONTAINING PRODUCTS (Verified Allergy, Mild, 07/20/14) per patient, "it knocks me out" ACETAMINOPHEN (Unverified Allergy, Unknown, 07/19/14) CODEINE (Unverified Allergy, Unknown, 11/03/13) UNKNOWN DIPHENHYDRAMINE (Unverified Allergy, Unknown, 09/30/14) IBUPROFEN (Unverified Allergy, Unknown, 11/03/13) UNKNOWN PROCHLORPERAZINE (Unverified Allergy, Unknown, 07/19/14) GABAPENTIN (Verified Adverse Reaction, Intermediate, 07/20/14) Per patient, it makes him sweat, throws up, and "blacks out" Subjective awake, alert, responsive, C/O less right hip pain, NAD, No CP or SOB, feeling better, less weakness, WBC: 12.5, PLT: 98. Objective Last Vital Signs Date Time Temp Pulse Resp B/P (MAP) Pulse Ox O2 Delivery O2 Flow Rate FiO2 10/30/18 12:00 99.3 75 20 118/64 (82) 98 10/30/18 12:00 Room Air 10/30/18 08:00 2.0 10/30/18 07:02 28 Laboratory Tests Test 10/30/18 10:30 White Blood Count 12.5 K/UL (4.8-10.8) H Red Blood Count 3.86 M/UL (4.70-6.10) L Hemoglobin 11.6 G/DL (14.2-18.0) L Hematocrit 35.6 % (42.0-52.0) L Mean Corpuscular Volume 92 FL (80-99) Mean Corpuscular Hemoglobin 30.0 PG (27.0-31.0) Mean Corpuscular Hemoglobin Concent 32.5 G/DL (32.0-36.0) Red Cell Distribution Width 12.3 % (11.6-14.8) Platelet Count 98 K/UL (150-450) L Mean Platelet Volume 7.5 FL (6.5-10.1) Neutrophils (%) (Auto) % (45.0-75.0) Lymphocytes (%) (Auto) % (20.0-45.0) Monocytes (%) (Auto) % (1.0-10.0) Eosinophils (%) (Auto) % (0.0-3.0) Basophils (%) (Auto) % (0.0-2.0) Differential Total Cells Counted 100 Neutrophils % (Manual) 78 % (45-75) H Lymphocytes % (Manual) 11 % (20-45) L Monocytes % (Manual) 11 % (1-10) H Eosinophils % (Manual) 0 % (0-3) Basophils % (Manual) 0 % (0-2) Band Neutrophils 0 % (0-8) Platelet Estimate Decreased L Platelet Morphology Normal Red Blood Cell Morphology Normal Sodium Level 137 MMOL/L (136-145) Potassium Level 3.4 MMOL/L (3.5-5.1) L Chloride Level 106 MMOL/L (98-107) Carbon Dioxide Level 25 MMOL/L (21-32) Anion Gap 6 mmol/L (5-15) Blood Urea Nitrogen 17 mg/dL (7-18) Creatinine 1.1 MG/DL (0.55-1.30) Estimat Glomerular Filtration Rate mL/min (>60) Glucose Level 142 MG/DL (74-106) H Calcium Level 8.3 MG/DL (8.5-10.1) L Microbiology Date/Time Source Procedure Growth Status 10/28/18 15:25 Blood Blood Culture - Preliminary NO GROWTH AFTER 24 HOURS Resulted 10/28/18 15:20 Blood Blood Culture - Preliminary NO GROWTH AFTER 24 HOURS Resulted Intake and Output 10/29/18 10/30/18 19:00 07:00 Intake Total 186 ml Output Total 650 ml Balance 186 ml -650 ml IV Total 186 ml Output Urine Total 650 ml Objective General: No acute distress, awake and alert HEENT: NCAT, sclera anicteric, PERRL, EOMI. Neck: Supple, no significant jugular venous distention, Lungs: Good inspiratory effort, decrease air at bases,, no Wheeze or Rales. Heart: Regular rate and rhythm, normal S1/S2, no murmurs Abdomen: soft, nontender, nondistended. Normoactive bowel sounds, obesity, Right hip pain. / Rectal: Refused and deferred. Extremities: No Cyanosis , clubbing or edema. Neuro: A&O x 3, Able to move all extremities Skin: warm, no rashes or lesions Psych: Normal mood and affect Assessment/Plan Assessment/Plan 1. Sepsis 2ry to Gram positive bacteremia - r/o endocarditis, aortic graft infection -10/27 BCx 2/2 GPC --> STREP AGALACTIAE GROUP B 2. Urinary tract infection with lactic acidosis. 3. Right hip pain. 4. Coronary artery disease. 5. 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 6. Hypertension. 7. History of cervical disk disease with myelopathy. 8. Aortic valve replacement. 9. Descending aortic aneurysm repair. 10.Thrombocytopenia. PLAN: in [facility] Monitor labs and cultures. Abx: Rocephin resume lower dose Eliquis due to thrombocytopenia Code status is Full Code. DVT prophylaxis: SCD OOB to chair, PT mobility. Tao Marcial MD Oct 30, 2018 15:03
--- NOTE | 2018-10-30 15:10 | NUR ---
TRANSFER TO FLOOR: Patient transferred to telemetry room 210-2, per Dr. Rutledge. Report given to Sanjay Chakraborty RN. Belongings and medications given to receiving nurse.
[2018-10-30] MEDS ORDERED: Enalaprilat 1.25mg/ml Inj IV PRN (15:30)
[2018-10-30] MEDS ORDERED: dilTIAZem HCl 25mg/5ml Inj IV PRN (15:30)
[2018-10-30] MEDS ORDERED: Miralax 17gm pkt ORAL PRN (15:30)
[2018-10-30 16:00] VITALS: BP 121/68
[2018-10-30] MEDS ORDERED: NS 275ml ONE (16:24)
[2018-10-30] MEDS: Eliquis 2.5mg tablet ORAL SCH (17:24)
[2018-10-30] MEDS ORDERED: Eliquis 2.5mg tablet ORAL SCH ×2 (18:00)
[2018-10-30 20:00] VITALS: BP 99/66
--- NOTE | 2018-10-30 20:19 | NUR ---
NURSE NOTES: RECEIVED PATIENT ASLEEP, EASILY AROUSABLE. FALL PRECAUTIONS IN PLACE: CALL LIGHT, BEDSIDE TABLE AND URINAL WITHIN REACH, BED IN LOW POSITION AND BED ALARM ON. WILL CONTINUE WITH PLAN OF CARE.
[2018-10-31] VITALS: BP 113/55
[2018-10-31 04:00] VITALS: BP 129/77
[2018-10-31] MEDS ORDERED: Isovue-370 150ml vial INJ PRN (04:00)
[2018-10-31] MEDS: HYDROmorphone 1mg/ml Carpuject IVP PRN ×4 (05:50→17:13)
--- NOTE | 2018-10-31 07:00 | NUR ---
NURSE NOTES: Nurse report given by KRYSTIAN Allan. Patient's is asleep in bed, supine position, no s/s of distress or SOB. Bed at lowest position, break engaged, call light within reach. Will continue to monitor.
[2018-10-31 07:22] LABS: ANION GAP 9 mmol/L (5-15); BLOOD UREA NITROGEN 15 mg/dL (7-18); CALCIUM 8.7 MG/DL (8.5-10.1); CARBON DIOXIDE 23 MMOL/L (21-32); CHLORIDE 107 MMOL/L (98-107); CREATININE 1.1 MG/DL (0.55-1.30); POTASSIUM 3.5 MMOL/L (3.5-5.1); SODIUM 139 MMOL/L (136-145)
--- NOTE | 2018-10-31 07:25 | NUR ---
HAND-OFF: Report given to KRYSTIAN PITTS. PATIENT ASLEEP, NO SIGNS OF DISTRESS NOTED.
[2018-10-31 07:29] LABS: HEMATOCRIT 34.4 % (42.0-52.0); HEMOGLOBIN 11.2 G/DL (14.2-18.0); MEAN CORPUSCULAR VOLUME 93 FL (80-99); PLATELET COUNT 126 K/UL (150-450); RED BLOOD COUNT 3.71 M/UL (4.70-6.10); RED CELL DISTRIBUTION WIDTH 12.6 % (11.6-14.8)
[2018-10-31 08:00] VITALS: BP 129/83
--- NOTE | 2018-10-31 08:09 | NUR ---
CHEST X-RAY COMPLETED AT 0734 HRS BY Tyler SANTIAGO.
[2018-10-31] MEDS: Depakote 500mg tab ORAL SCH ×2 (09:08→21:49)
[2018-10-31] MEDS: Eliquis 2.5mg tablet ORAL SCH ×2 (09:08→17:00)
--- NOTE | 2018-10-31 10:15 | NUR ---
Indium WBC Scan: Blood drawn and sent to [facility] for Indium-111 WBC labeling at 1005 hrs. Return time for labeled WBCs for re-injection is 3-6 hours. Addendum: 10/31/18 at 1508 by FRANCISCO LEWIS Indium-111 labeled WBCs re-injected. Scanning will be performed tomorrow per protocol
--- NOTE | 2018-10-31 10:20 | NUR ---
CASE MANAGEMENT:REVIEW 10/31/18 SI: SEPSIS D/T BACTEREMIA. PAFIB S/P AORTIC VALVE REPLACEMENT R/O ENDOCARDITIS 100.2 72 19 113/55 96% ON RA WBC+13.0 PLT-126 IS: IV ROCEPHIN Q24 NORVASC PO QD DEPAKOTE PO Q12 ELIQUIS PO BID ATENOLOL PO BID : TELEMETRY STATUS DCP: FROM HOME PLAN: BENJAMIN SCHEDULED FOR 11/01/18 INDIUM SCAN FRO TODAY
--- NOTE | 2018-10-31 10:57 | Pulmonology Progress Note ---
Assessment/Plan Problems: (1) Acute coronary syndrome (2) HTN (hypertension) (3) CAD (coronary artery disease) (4) Aortic valve disorder (5) H/O aortic valve replacement (6) Thalamic pain syndrome Assessment/Plan for BENJAMIN in am monitor BP f/u cardio recommendations symptomatic treatment Subjective ROS Limited/Unobtainable: No Constitutional: Reports: no symptoms HEENT: Repors: no symptoms Respiratory: Reports: no symptoms Allergies: Coded Allergies: MORPHINE (Verified Allergy, Severe, 11/07/10) NITROGLYCERIN (Verified Allergy, Severe, 11/07/10) KETOROLAC (Unverified Allergy, Intermediate, 03/14/14) FISH CONTAINING PRODUCTS (Verified Allergy, Mild, 07/20/14) per patient, "it knocks me out" ACETAMINOPHEN (Unverified Allergy, Unknown, 07/19/14) CODEINE (Unverified Allergy, Unknown, 11/03/13) UNKNOWN DIPHENHYDRAMINE (Unverified Allergy, Unknown, 09/30/14) IBUPROFEN (Unverified Allergy, Unknown, 11/03/13) UNKNOWN PROCHLORPERAZINE (Unverified Allergy, Unknown, 07/19/14) GABAPENTIN (Verified Adverse Reaction, Intermediate, 07/20/14) Per patient, it makes him sweat, throws up, and "blacks out" Objective Last 24 Hour Vital Signs Date Time Temp Pulse Resp B/P (MAP) Pulse Ox O2 Delivery O2 Flow Rate FiO2 10/31/18 09:08 72 129/83 10/31/18 09:08 72 129/83 10/31/18 08:00 98.2 72 20 129/83 (98) 96 10/31/18 04:00 72 10/31/18 04:00 100.2 75 19 129/77 (94) 96 10/31/18 00:00 98.1 74 20 113/55 (74) 96 10/31/18 00:00 74 10/30/18 21:00 Room Air 10/30/18 20:00 76 10/30/18 20:00 100.8 89 19 99/66 (77) 96 10/30/18 19:07 87 18 96 Nasal Cannula 2.0 28 10/30/18 17:24 78 121/68 10/30/18 16:00 100.5 78 18 121/68 (85) 96 10/30/18 16:00 78 10/30/18 12:00 99.3 75 20 118/64 (82) 98 10/30/18 12:00 Room Air 10/30/18 11:49 69 Intake and Output 10/30/18 10/31/18 19:00 07:00 Intake Total 1015 ml 240 ml Output Total 1000 ml 200 ml Balance 15 ml 40 ml Intake Oral 960 ml 240 ml IV Total 55 ml Output Urine Total 1000 ml 200 ml # Voids 2 2 General Appearance: WD/WN HEENT: normocephalic, atraumatic Respiratory/Chest: chest wall non-tender, lungs clear Cardiovascular: normal peripheral pulses, normal rate Abdomen: normal bowel sounds, soft, non tender Genitourinary: normal external genitalia Extremities: no clubbing Skin: no lesions Neurologic/Psychiatric: supervisor rolling room II-XII grossly normal Microbiology Date/Time Source Procedure Growth Status 10/28/18 15:25 Blood Blood Culture - Preliminary NO GROWTH AFTER 48 HOURS Resulted 10/28/18 15:20 Blood Blood Culture - Preliminary NO GROWTH AFTER 48 HOURS Resulted Laboratory Tests 10/31/18 06:36: White Blood Count 13.0H, Red Blood Count 3.71L, Hemoglobin 11.2L, Hematocrit 34.4L, Mean Corpuscular Volume 93, Mean Corpuscular Hemoglobin 30.1, Mean Corpuscular Hemoglobin Concent 32.5, Red Cell Distribution Width 12.6, Platelet Count 126L, Mean Platelet Volume 7.9, Neutrophils (%) (Auto) , Lymphocytes (%) ( Auto) , Monocytes (%) (Auto) , Eosinophils (%) (Auto) , Basophils (%) (Auto) , Differential Total Cells Counted 100, Neutrophils % (Manual) 73, Lymphocytes % ( Manual) 7L, Monocytes % (Manual) 19H, Eosinophils % (Manual) 1, Basophils % ( Manual) 0, Band Neutrophils 0, Platelet Estimate DecreasedL, Platelet Morphology Normal, Red Blood Cell Morphology Normal, Sodium Level 139, Potassium Level 3.5, Chloride Level 107, Carbon Dioxide Level 23, Anion Gap 9, Blood Urea Nitrogen 15, Creatinine 1.1, Estimat Glomerular Filtration Rate , Glucose Level 115H, Calcium Level 8.7 Current Medications Medications (Trade) Dose Ordered Sig/Sheba Route PRN Reason Start Time Stop Time Status Last Admin Dose Admin Albuterol/ Ipratropium (Albuterol/ Ipratropium) 3 ml Q4H PRN HHN Shortness of Breath 10/30/18 15:00 11/04/18 14:59 Amlodipine Besylate (Norvasc) 10 mg DAILY ORAL 10/31/18 09:00 11/27/18 08:59 10/31/18 09:08 Apixaban (Eliquis) 2.5 mg BID ORAL 10/30/18 18:00 11/29/18 17:59 10/31/18 09:08 Atenolol (Tenormin) 50 mg BID ORAL 10/30/18 18:00 11/26/18 17:59 10/31/18 09:08 Ceftriaxone Sodium 2 gm/ Dextrose 55 ml @ 110 mls/hr Q24H IVPB 10/31/18 13:00 11/05/18 12:59 Diltiazem HCl (Cardizem) 10 mg Q1H PRN IV heart rate more than 120, 10/30/18 15:30 11/26/18 15:29 Divalproex Sodium (Depakote) 500 mg Q12HR ORAL 10/30/18 21:00 11/26/18 20:59 10/31/18 09:08 Enalaprilat (Vasotec) 2.5 mg Q6H PRN IV sbp more than 160 10/30/18 15:30 11/26/18 15:29 Hydromorphone HCl (Dilaudid) 0.5 mg Q3H PRN IVP MODERATE PAIN 10/30/18 15:00 11/04/18 14:59 Hydromorphone HCl (Dilaudid) 1 mg Q3H PRN IVP SEVERE PAIN 10/30/18 18:15 11/04/18 09:02 10/31/18 09:09 Ondansetron HCl (Zofran) 4 mg Q6H PRN IVP Nausea & Vomiting 10/30/18 15:30 11/26/18 15:29 Polyethylene Glycol (Miralax) 17 gm DAILYPRN PRN ORAL Constipation 10/30/18 15:30 11/29/18 15:29 Temazepam (Restoril) 15 mg HSPRN PRN ORAL Insomnia 10/30/18 16:00 11/06/18 15:59 Melinda Rutledge MD Oct 31, 2018 10:57
--- NOTE | 2018-10-31 11:00 | NUR ---
HAND-OFF: Report given to KRYSTIAN Ewing. Plan of care endorsed.
--- NOTE | 2018-10-31 11:34 | NUR ---
NURSE NOTES: Received report form Anai RN, pt. in bed awake, no signs or symptoms of acute cardiac or respiratory distress noted, pt. is A/O x's3- able to make needs known, no signs or symptoms of acute cardiac or respiratory distress noted, bed in lowest position and jennifer light within easy reach, bed alarm on side rails up x's3 and safety brakes engaged, pt. appears to be sating well on Room air-no distress noted, urinal at bedside and within easy reach, LFA 20G IV intact- appears to be infiltrated- will try to insert new IV, safety measures continued, will continue with plan of care.,
[2018-10-31 12:00] VITALS: BP 136/77
--- NOTE | 2018-10-31 12:00 | NUR ---
NURSE NOTES: pt. refused Venous duplex - explained teaching 3X's - pt. still continued to refuse.
--- NOTE | 2018-10-31 12:08 | Diagnostic Imaging Report ---
Indication: Shortness of breath Technique: One view of the chest Comparison: 10/27/2018 Findings: The heart is borderline enlarged. Aortic stent graft and median sternotomy sutures are again demonstrated. Linear scarring is again demonstrated in the left upper lobe. The lungs and pleural spaces are otherwise grossly clear. Findings are unchanged Impression: No acute process
[2018-10-31] MEDS: cefTRIAXone 2 GM in D5W 55 ML IVPB SCH (12:31)
--- NOTE | 2018-10-31 14:42 | Infectious Diseases Prog Note ---
Assessment/Plan Assessment/Plan Assessment: Sepsis 2ry to Gram positive bacteremia (?source)- r/o endocarditis, aortic graft infection -10/27 BCx 2/2 GBS; 10/28 Bcx NTD -CXR: Borderline cardiomegaly.Thoracic endograft again demonstrated. No definite acute process -CTA c/abd/p w/wo: Somewhat limited exam due to lack of inclusion of the pelvis within the imaging volume. Postsurgical changes, status post surgical repair of the ascending thoracic aorta, status post stent graft repair of descending thoracic aorta. No evidence of leakage for rupture. No acute abnormality. Dilated main and left main pulmonary artery, consistent with pulmonary arterial hypertension. Mild hazy pulmonary opacity and centrilobular interstitial septal thickening in the upper lobes, could indicate mild pulmonary edema. Fatty liver. Incidental findings as noted, including hepatic capsular calcifications, left renal cysts, probable small right renal cysts -2d Echo: no vegetations -u/a no pyuria, nit +, leuk +1 Fever; persistent Leukocytosis; improving R Hip/back pain -L spine xray: No acute process. Mild degenerative changes -MRI hip: Mild degenerative changes of the right hip. No acute or significant osseous or joint abnormality otherwise. Incidental findings of small fat- containing right hernia and colonic diverticulosis pAfib s/p ablation 06/2017 HTN obesity R MCA thromboembolic stroke s/p laminectomy L TKR s/p revision and screw removal 06/2018 HTN s/p bioprosthetic AVR pain/somatization disorder aortic aneurysm s/p repair 2014, GERD drug-seeking behavior insomnia gout OA anxiety Plan: - Continue Ceftriaxone #3 (abx d #5) for GBS bacteremia - 10/29/18 SP Daptomycin #1 - 10/28/18 SP Vancomycin #2, Cefepime #2 -f/u cx -Monitor CBC/CMP, temperatures -Will need BENJAMIN to evaluate for endocarditis in setting of gram positive bacteremia and AVR -f/u WBC scan to eval for aortic graft infection -f/u Bcx x2 Thank you for this consultation. Will continue to follow along with you. Subjective Allergies: Coded Allergies: MORPHINE (Verified Allergy, Severe, 11/07/10) NITROGLYCERIN (Verified Allergy, Severe, 11/07/10) KETOROLAC (Unverified Allergy, Intermediate, 03/14/14) FISH CONTAINING PRODUCTS (Verified Allergy, Mild, 07/20/14) per patient, "it knocks me out" ACETAMINOPHEN (Unverified Allergy, Unknown, 07/19/14) CODEINE (Unverified Allergy, Unknown, 11/03/13) UNKNOWN DIPHENHYDRAMINE (Unverified Allergy, Unknown, 09/30/14) IBUPROFEN (Unverified Allergy, Unknown, 11/03/13) UNKNOWN PROCHLORPERAZINE (Unverified Allergy, Unknown, 07/19/14) GABAPENTIN (Verified Adverse Reaction, Intermediate, 07/20/14) Per patient, it makes him sweat, throws up, and "blacks out" Subjective Tm 100.8 wbc 13 repeat Bcx NTD Objective Vital Signs Last 24 Hour Vital Signs Date Time Temp Pulse Resp B/P (MAP) Pulse Ox O2 Delivery O2 Flow Rate FiO2 10/31/18 12:48 97.9 10/31/18 12:00 75 10/31/18 12:00 97.9 66 20 136/77 (96) 97 10/31/18 09:08 72 129/83 10/31/18 09:08 72 129/83 10/31/18 09:00 Room Air 10/31/18 08:00 74 10/31/18 08:00 98.2 72 20 129/83 (98) 96 10/31/18 07:00 68 16 96 Nasal Cannula 2.0 28 10/31/18 04:00 72 10/31/18 04:00 100.2 75 19 129/77 (94) 96 10/31/18 00:00 98.1 74 20 113/55 (74) 96 10/31/18 00:00 74 10/30/18 21:00 Room Air 10/30/18 20:00 76 10/30/18 20:00 100.8 89 19 99/66 (77) 96 10/30/18 19:07 87 18 96 Nasal Cannula 2.0 28 10/30/18 17:24 78 121/68 10/30/18 16:00 100.5 78 18 121/68 (85) 96 10/30/18 16:00 78 Height (Feet): 6 Height (Inches): 1.00 Weight (Pounds): 280 Microbiology Date/Time Source Procedure Growth Status 10/28/18 15:25 Blood Blood Culture - Preliminary NO GROWTH AFTER 48 HOURS Resulted 10/28/18 15:20 Blood Blood Culture - Preliminary NO GROWTH AFTER 48 HOURS Resulted Laboratory Tests Test 10/31/18 06:36 White Blood Count 13.0 K/UL (4.8-10.8) H Red Blood Count 3.71 M/UL (4.70-6.10) L Hemoglobin 11.2 G/DL (14.2-18.0) L Hematocrit 34.4 % (42.0-52.0) L Mean Corpuscular Volume 93 FL (80-99) Mean Corpuscular Hemoglobin 30.1 PG (27.0-31.0) Mean Corpuscular Hemoglobin Concent 32.5 G/DL (32.0-36.0) Red Cell Distribution Width 12.6 % (11.6-14.8) Platelet Count 126 K/UL (150-450) L Mean Platelet Volume 7.9 FL (6.5-10.1) Neutrophils (%) (Auto) % (45.0-75.0) Lymphocytes (%) (Auto) % (20.0-45.0) Monocytes (%) (Auto) % (1.0-10.0) Eosinophils (%) (Auto) % (0.0-3.0) Basophils (%) (Auto) % (0.0-2.0) Differential Total Cells Counted 100 Neutrophils % (Manual) 73 % (45-75) Lymphocytes % (Manual) 7 % (20-45) L Monocytes % (Manual) 19 % (1-10) H Eosinophils % (Manual) 1 % (0-3) Basophils % (Manual) 0 % (0-2) Band Neutrophils 0 % (0-8) Platelet Estimate Decreased L Platelet Morphology Normal Red Blood Cell Morphology Normal Sodium Level 139 MMOL/L (136-145) Potassium Level 3.5 MMOL/L (3.5-5.1) Chloride Level 107 MMOL/L (98-107) Carbon Dioxide Level 23 MMOL/L (21-32) Anion Gap 9 mmol/L (5-15) Blood Urea Nitrogen 15 mg/dL (7-18) Creatinine 1.1 MG/DL (0.55-1.30) Estimat Glomerular Filtration Rate mL/min (>60) Glucose Level 115 MG/DL (74-106) H Calcium Level 8.7 MG/DL (8.5-10.1) Current Medications Medications (Trade) Dose Ordered Sig/Sheba Route PRN Reason Start Time Stop Time Status Last Admin Dose Admin Albuterol/ Ipratropium (Albuterol/ Ipratropium) 3 ml Q4H PRN HHN Shortness of Breath 10/30/18 15:00 11/04/18 14:59 Amlodipine Besylate (Norvasc) 10 mg DAILY ORAL 10/31/18 09:00 11/27/18 08:59 10/31/18 09:08 Apixaban (Eliquis) 2.5 mg BID ORAL 10/30/18 18:00 11/29/18 17:59 10/31/18 09:08 Atenolol (Tenormin) 50 mg BID ORAL 10/30/18 18:00 11/26/18 17:59 10/31/18 09:08 Ceftriaxone Sodium 2 gm/ Dextrose 55 ml @ 110 mls/hr Q24H IVPB 10/31/18 13:00 11/05/18 12:59 10/31/18 12:31 Diltiazem HCl (Cardizem) 10 mg Q1H PRN IV heart rate more than 120, 10/30/18 15:30 11/26/18 15:29 Divalproex Sodium (Depakote) 500 mg Q12HR ORAL 10/30/18 21:00 11/26/18 20:59 10/31/18 09:08 Enalaprilat (Vasotec) 2.5 mg Q6H PRN IV sbp more than 160 10/30/18 15:30 11/26/18 15:29 Hydromorphone HCl (Dilaudid) 0.5 mg Q3H PRN IVP MODERATE PAIN 10/30/18 15:00 11/04/18 14:59 Hydromorphone HCl (Dilaudid) 1 mg Q3H PRN IVP SEVERE PAIN 10/30/18 18:15 11/04/18 09:02 10/31/18 12:18 Ondansetron HCl (Zofran) 4 mg Q6H PRN IVP Nausea & Vomiting 10/30/18 15:30 11/26/18 15:29 Polyethylene Glycol (Miralax) 17 gm DAILYPRN PRN ORAL Constipation 10/30/18 15:30 11/29/18 15:29 Temazepam (Restoril) 15 mg HSPRN PRN ORAL Insomnia 10/30/18 16:00 11/06/18 15:59 Bree Steel M.D. Oct 31, 2018 14:41
[2018-10-31 16:00] VITALS: BP 129/59
--- NOTE | 2018-10-31 18:45 | Internal Med Progress Note ---
Subjective Date of Service: Oct 31, 2018 Physician Name Tate Cedeno Attending Physician Tao Marcial MD Current Medications Medications (Trade) Dose Ordered Sig/Sheba Route PRN Reason Start Time Stop Time Status Last Admin Dose Admin Albuterol/ Ipratropium (Albuterol/ Ipratropium) 3 ml Q4H PRN HHN Shortness of Breath 10/30/18 15:00 11/04/18 14:59 Amlodipine Besylate (Norvasc) 10 mg DAILY ORAL 10/31/18 09:00 11/27/18 08:59 10/31/18 09:08 Apixaban (Eliquis) 2.5 mg BID ORAL 10/30/18 18:00 11/29/18 17:59 10/31/18 17:00 Atenolol (Tenormin) 50 mg BID ORAL 10/30/18 18:00 11/26/18 17:59 10/31/18 09:08 Ceftriaxone Sodium 2 gm/ Dextrose 55 ml @ 110 mls/hr Q24H IVPB 10/31/18 13:00 11/05/18 12:59 10/31/18 12:31 Diltiazem HCl (Cardizem) 10 mg Q1H PRN IV heart rate more than 120, 10/30/18 15:30 11/26/18 15:29 Divalproex Sodium (Depakote) 500 mg Q12HR ORAL 10/30/18 21:00 11/26/18 20:59 10/31/18 09:08 Enalaprilat (Vasotec) 2.5 mg Q6H PRN IV sbp more than 160 10/30/18 15:30 11/26/18 15:29 Hydromorphone HCl (Dilaudid) 0.5 mg Q3H PRN IVP MODERATE PAIN 10/30/18 15:00 11/04/18 14:59 Hydromorphone HCl (Dilaudid) 1 mg Q3H PRN IVP SEVERE PAIN 10/30/18 18:15 11/04/18 09:02 10/31/18 17:13 Ondansetron HCl (Zofran) 4 mg Q6H PRN IVP Nausea & Vomiting 10/30/18 15:30 11/26/18 15:29 Polyethylene Glycol (Miralax) 17 gm DAILYPRN PRN ORAL Constipation 10/30/18 15:30 11/29/18 15:29 Temazepam (Restoril) 15 mg HSPRN PRN ORAL Insomnia 10/30/18 16:00 11/06/18 15:59 Allergies: Coded Allergies: MORPHINE (Verified Allergy, Severe, 11/07/10) NITROGLYCERIN (Verified Allergy, Severe, 11/07/10) KETOROLAC (Unverified Allergy, Intermediate, 03/14/14) FISH CONTAINING PRODUCTS (Verified Allergy, Mild, 07/20/14) per patient, "it knocks me out" ACETAMINOPHEN (Unverified Allergy, Unknown, 07/19/14) CODEINE (Unverified Allergy, Unknown, 11/03/13) UNKNOWN DIPHENHYDRAMINE (Unverified Allergy, Unknown, 09/30/14) IBUPROFEN (Unverified Allergy, Unknown, 11/03/13) UNKNOWN PROCHLORPERAZINE (Unverified Allergy, Unknown, 07/19/14) GABAPENTIN (Verified Adverse Reaction, Intermediate, 07/20/14) Per patient, it makes him sweat, throws up, and "blacks out" ROS Limited/Unobtainable: No Constitutional: Reports: no symptoms HEENT: Reports: no symptoms Cardiovascular: Reports: no symptoms Respiratory: Reports: no symptoms Gastrointestinal/Abdominal: Reports: no symptoms Genitourinary: Reports: no symptoms Neurologic/Psychiatric: Reports: no symptoms Subjective 73 YO M admitted with gen weakness. Now sepsis. Cover for Int Syed-DR Marcial Objective Last Vital Signs Date Time Temp Pulse Resp B/P (MAP) Pulse Ox O2 Delivery O2 Flow Rate FiO2 10/31/18 17:43 97.8 10/31/18 17:00 70 118/63 10/31/18 16:00 20 96 10/31/18 09:00 Room Air 10/31/18 07:00 2.0 28 Laboratory Tests Test 10/31/18 06:36 White Blood Count 13.0 K/UL (4.8-10.8) H Red Blood Count 3.71 M/UL (4.70-6.10) L Hemoglobin 11.2 G/DL (14.2-18.0) L Hematocrit 34.4 % (42.0-52.0) L Mean Corpuscular Volume 93 FL (80-99) Mean Corpuscular Hemoglobin 30.1 PG (27.0-31.0) Mean Corpuscular Hemoglobin Concent 32.5 G/DL (32.0-36.0) Red Cell Distribution Width 12.6 % (11.6-14.8) Platelet Count 126 K/UL (150-450) L Mean Platelet Volume 7.9 FL (6.5-10.1) Neutrophils (%) (Auto) % (45.0-75.0) Lymphocytes (%) (Auto) % (20.0-45.0) Monocytes (%) (Auto) % (1.0-10.0) Eosinophils (%) (Auto) % (0.0-3.0) Basophils (%) (Auto) % (0.0-2.0) Differential Total Cells Counted 100 Neutrophils % (Manual) 73 % (45-75) Lymphocytes % (Manual) 7 % (20-45) L Monocytes % (Manual) 19 % (1-10) H Eosinophils % (Manual) 1 % (0-3) Basophils % (Manual) 0 % (0-2) Band Neutrophils 0 % (0-8) Platelet Estimate Decreased L Platelet Morphology Normal Red Blood Cell Morphology Normal Sodium Level 139 MMOL/L (136-145) Potassium Level 3.5 MMOL/L (3.5-5.1) Chloride Level 107 MMOL/L (98-107) Carbon Dioxide Level 23 MMOL/L (21-32) Anion Gap 9 mmol/L (5-15) Blood Urea Nitrogen 15 mg/dL (7-18) Creatinine 1.1 MG/DL (0.55-1.30) Estimat Glomerular Filtration Rate mL/min (>60) Glucose Level 115 MG/DL (74-106) H Calcium Level 8.7 MG/DL (8.5-10.1) Intake and Output 10/30/18 10/31/18 19:00 07:00 Intake Total 1015 ml 240 ml Output Total 1000 ml 200 ml Balance 15 ml 40 ml Intake Oral 960 ml 240 ml IV Total 55 ml Output Urine Total 1000 ml 200 ml # Voids 2 2 Objective Objective General: No acute distress, awake and alert HEENT: NCAT, sclera anicteric, PERRL, EOMI. Neck: Supple, no significant jugular venous distention, Lungs: Good inspiratory effort, decrease air at bases,, no Wheeze or Rales. Heart: Regular rate and rhythm, normal S1/S2, no murmurs Abdomen: soft, nontender, nondistended. Normoactive bowel sounds, obesity, Right hip pain. / Rectal: Refused and deferred. Extremities: No Cyanosis , clubbing or edema. Neuro: A&O x 3, Able to move all extremities Skin: warm, no rashes or lesions Psych: Normal mood and affect Assessment/Plan Assessment/Plan Assessment/Plan Assessment/Plan 1. Sepsis - r/o endocarditis, aortic graft infection -10/27 BCx / GPC --> STREP AGALACTIAE GROUP B 2. Urinary tract infection with lactic acidosis. 3. Right hip pain. 4. Coronary artery disease. 5. 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 6. Hypertension. 7. History of cervical disk disease with myelopathy. 8. Aortic valve replacement. 9. Descending aortic aneurysm repair. 10.Thrombocytopenia. PLAN: Monitor labs and cultures. Abx: Ceftriaxone resume lower dose Eliquis due to thrombocytopenia Code status is Full Code. DVT prophylaxis: SCD OOB to chair, PT mobility. Tate Cedeno MD Oct 31, 2018 18:45
--- NOTE | 2018-10-31 19:07 | NUR ---
HAND-OFF: Report given to Sailaja RN, pt. remains stable and no signs of distress noted.
--- NOTE | 2018-10-31 19:10 | NUR ---
NURSE NOTES: Received report from KRYSTIAN Ewing. Patient in bed awake, in low fowlers position showing no signs of acute distress. Respiration even and non labored on room air. No Sob noted. AOx3. IV noted on right AC 22g SL patent and intact. Call light within reach. Bed in lowest position, wheels locked and alarm on. All needs attended and met. Will continue plan of care.
--- NOTE | 2018-10-31 19:15 | Cardiology Report ---
APPROVED REPORT EXAM: Two-dimensional and M-mode echocardiogram with Doppler and color Doppler. INDICATION Left ventricular function M-Mode DIMENSIONS LVDd5.6 (3.5-5.6cm) PWd1.1 (0.7-1.1cm) IVSs1.9 cm LVDs4.3 (2.5-4.0cm) PWs1.6 cm Technically difficultand limited study due to poor acoustic windows. Study quality precludes accurate assessment of regional wall motion. Normal left ventricular chamber size, systolic function and wall motion to extent visualized. Left ventricular ejection fraction estimated to be 60 %. Mild left ventricular hypertrophy. Anterior Echo-free space, may be due to pericardial fat or effusion. All other cardiac chamber sizes are within normal limits. Focal aortic valve sclerosis with adequate cusp excursion. Thickened mitral valve leaflets with normal excursion. Mitral annulus and aortic root calcification. Pulmonic valve not well visualized. Normal tricuspid valve structure. Subcostal view not obtainable. A color flow and spectral Doppler study was performed and revealed: No aortic regurgitation. Trace mitral regurgitation. Mitral diastolic velocities suggest mild left ventricular diastolic dysfunction (Grade I). Mild tricuspid regurgitation. Tricuspid systolic velocities suggests peak right ventricular systolic pressure of 36 mmHg, consistent with mild pulmonary hypertension. No pulmonic regurgitation present.
--- NOTE | 2018-10-31 19:57 | Cardiology Report ---
APPROVED REPORT EKG Measurement Heart [id number] Multi-focal atrial tachycardia Left axis deviation Moderate voltage criteria for LVH, may be normal variant Abnormal ECG
[2018-10-31 20:00] VITALS: BP 140/79
--- NOTE | 2018-10-31 20:11 | Cardiology Progress Note ---
Assessment/Plan Problem List: (1) Paroxysmal atrial fibrillation Assessment & Plan: s/p ablation. He had SR w/ PACs on adm. 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 gu source. r/o endocarditis (6) S/P aortic valve replacement Status Narrative Mr. Lujan is afebrile. WBC remains elevated. He has group b strep UTI and bacteremia- r/o aortic graft or prosthetic valve infection. PAF - s/p ablation - maintaining NSR on telemetry s/p AVR, ascending aortic graft for dissection hx of cVA hx of chronic chest pain, felt to be noncardiac, possibly neuropathic He is dyspneic, w/ possible volume overload today. I/0s + 4L Assessment/Plan Mr Lujan has gp b strep bacteremia and UTI He is on iv antibiotics per ID. will d/w Dr. Palacio - BENJAMIN to r/o endocarditis Continue anticoagulation for PAF. Rhythm stable on telemetry Will give iv lasix today, w/ kcl supplement. Follow i/os, renal fxn, lytes. suppl o2 prn Subjective Subjective Cardiology/ EP Mr. Lujan c/o dyspnea. no cough, sputum Objective Last 24 Hour Vital Signs Date Time Temp Pulse Resp B/P (MAP) Pulse Ox O2 Delivery O2 Flow Rate FiO2 10/31/18 17:43 97.8 10/31/18 17:00 70 118/63 10/31/18 16:00 97.8 72 20 129/59 (82) 96 10/31/18 16:00 80 10/31/18 12:00 75 10/31/18 12:00 97.9 66 20 136/77 (96) 97 10/31/18 09:08 72 129/83 10/31/18 09:08 72 129/83 10/31/18 09:00 Room Air 10/31/18 08:00 74 10/31/18 08:00 98.2 72 20 129/83 (98) 96 10/31/18 07:00 68 16 96 Nasal Cannula 2.0 28 10/31/18 04:00 72 10/31/18 04:00 100.2 75 19 129/77 (94) 96 8/19/19 00:00 98.1 74 20 113/55 (74) 96 10/31/18 00:00 74 10/30/18 21:00 Room Air General Appearance: WD/WN, alert, mild distress EENT: PERRL/EOMI Neck: supple, JVD Rhythm: NSR Cardiovascular: normal rate, regular rhythm, no gallop/murmur Respiratory/Chest: other - few expir wheezes. fair air movement Abdomen: non tender, soft Extremities: moderate edema - 2+ pitting pedal and ankle edema bilat Intake and Output 10/30/18 10/31/18 19:00 07:00 Intake Total 1015 ml 240 ml Output Total 1000 ml 200 ml Balance 15 ml 40 ml Intake Oral 960 ml 240 ml IV Total 55 ml Output Urine Total 1000 ml 200 ml # Voids 2 2 Laboratory Tests Test 10/31/18 06:36 White Blood Count 13.0 K/UL (4.8-10.8) H Red Blood Count 3.71 M/UL (4.70-6.10) L Hemoglobin 11.2 G/DL (14.2-18.0) L Hematocrit 34.4 % (42.0-52.0) L Mean Corpuscular Volume 93 FL (80-99) Mean Corpuscular Hemoglobin 30.1 PG (27.0-31.0) Mean Corpuscular Hemoglobin Concent 32.5 G/DL (32.0-36.0) Red Cell Distribution Width 12.6 % (11.6-14.8) Platelet Count 126 K/UL (150-450) L Mean Platelet Volume 7.9 FL (6.5-10.1) Neutrophils (%) (Auto) % (45.0-75.0) Lymphocytes (%) (Auto) % (20.0-45.0) Monocytes (%) (Auto) % (1.0-10.0) Eosinophils (%) (Auto) % (0.0-3.0) Basophils (%) (Auto) % (0.0-2.0) Differential Total Cells Counted 100 Neutrophils % (Manual) 73 % (45-75) Lymphocytes % (Manual) 7 % (20-45) L Monocytes % (Manual) 19 % (1-10) H Eosinophils % (Manual) 1 % (0-3) Basophils % (Manual) 0 % (0-2) Band Neutrophils 0 % (0-8) Platelet Estimate Decreased L Platelet Morphology Normal Red Blood Cell Morphology Normal Sodium Level 139 MMOL/L (136-145) Potassium Level 3.5 MMOL/L (3.5-5.1) Chloride Level 107 MMOL/L (98-107) Carbon Dioxide Level 23 MMOL/L (21-32) Anion Gap 9 mmol/L (5-15) Blood Urea Nitrogen 15 mg/dL (7-18) Creatinine 1.1 MG/DL (0.55-1.30) Estimat Glomerular Filtration Rate mL/min (>60) Glucose Level 115 MG/DL (74-106) H Calcium Level 8.7 MG/DL (8.5-10.1) Karyna Wheatley MD Oct 31, 2018 20:11
--- NOTE | 2018-10-31 21:30 | NUR ---
NURSE NOTES: Offered Miralax to pt. and pt. refused insisting he's not familiar with the medication. Explained the medication, risks and benefits, pt. still refused. Will continue to monitor
[2018-10-31] MEDS: Hydromorphone 0.5mg/0.5ml inj IVP PRN (21:50)
[2018-11-01] VITALS: BP 127/65
[2018-11-01 04:00] VITALS: BP 147/63
[2018-11-01] MEDS: Hydromorphone 0.5mg/0.5ml inj IVP PRN ×2 (06:52→14:00)
--- NOTE | 2018-11-01 07:20 | NUR ---
NURSE NOTES: Nurse report given by KRYSTIAN Mendoza. Patient's asleep in bed at low coon position. No s/s of distress or SOB, breathings are even. IV is intact, patent and asymptomatic. Bed at lowest position, call light within reach, break engaged. NPO for AM procedures. Will continue to monitor.
--- NOTE | 2018-11-01 07:31 | NUR ---
HAND-OFF: Report given to KRYSTIAN Ospina.
--- NOTE | 2018-11-01 08:00 | NUR ---
NURSE NOTES: Patient refused to get vital sign check and lab drawn this morning. Nurse reminded him that he's going to have the procedure soon this morning and he agreed that he will have that but no lab drawn yet. He wanted to rest. Notified GI lab nurse and labor arbitrator hearing office [place] about the situation.
[2018-11-01] MEDS: Eliquis 2.5mg tablet ORAL SCH ×2 (08:38→17:04)
[2018-11-01] MEDS: Depakote 500mg tab ORAL SCH ×3 (08:38→21:03)
[2018-11-01 09:50] LABS: BASOPHILS % (AUTO) 1.1 % (0.0-2.0); EOSINOPHILS % (AUTO) 0.4 % (0.0-3.0); HEMATOCRIT 31.8 % (42.0-52.0); HEMOGLOBIN 10.6 G/DL (14.2-18.0); LYMPHOCYTES % (AUTO) 9.6 % (20.0-45.0); MEAN CORPUSCULAR VOLUME 92 FL (80-99); MONOCYTES % (AUTO) 16.8 % (1.0-10.0); PLATELET COUNT 136 K/UL (150-450); RED BLOOD COUNT 3.44 M/UL (4.70-6.10); RED CELL DISTRIBUTION WIDTH 12.6 % (11.6-14.8)
[2018-11-01] MEDS ORDERED: LR 1000ml 1,000 ML IVLG SCH (09:59)
[2018-11-01] MEDS ORDERED: LORazepam Inj 2mg/ml 1ml IV PRN (10:00)
[2018-11-01] MEDS ORDERED: Metoclopramide 10mg/2ml Inj IVP PRN (10:00)
[2018-11-01] MEDS ORDERED: fentaNYL 100 mcg/2 mL IV PRN (10:00)
[2018-11-01] MEDS ORDERED: Labetalol 5mg/ml 20ml vial IV PRN (10:00)
[2018-11-01] MEDS ORDERED: Midazolam 2mg/2ml Inj IVP PRN (10:00)
[2018-11-01] MEDS ORDERED: Meperidine 50mg/ml Inj(FOR RIGORS ONLY) IVP PRN (10:00)
[2018-11-01] MEDS ORDERED: Atropine Sulfate 0.4mg/ml inj IVP PRN (10:00)
[2018-11-01 10:03] LABS: ANION GAP 6 mmol/L (5-15); BLOOD UREA NITROGEN 13 mg/dL (7-18); CALCIUM 8.5 MG/DL (8.5-10.1); CARBON DIOXIDE 26 MMOL/L (21-32); CHLORIDE 106 MMOL/L (98-107); CREATININE 1.1 MG/DL (0.55-1.30); POTASSIUM 3.6 MMOL/L (3.5-5.1); SODIUM 138 MMOL/L (136-145)
--- NOTE | 2018-11-01 10:10 | NUR ---
NURSE NOTES: Patient was irritable and refused to have BENJAMIN procedure done. At 1010: He complains that he's in pain and he stated: " I will need my pain medication, I want to rest and I want to have the procedure later." Nurse acknowledged and told him that he needs the procedure at this time or it will be rescheduled later. Nurse administered pain medication , notified GI nurse and Dr. Palacio. Dr. Palacio acknowledged and would like to talk to the patient. Patient became furious and stated: " I will call my commonwealth attorney and will caio this hospital." 1030: Dr Palacio ordered to cancel the procedure.
[2018-11-01] MEDS: HYDROmorphone 1mg/ml Carpuject IVP PRN ×3 (10:13→21:04)
--- NOTE | 2018-11-01 10:19 | Anethesia Preoperative Eval ---
Anesthesia Pre-op PMH/ROS General Date of Evaluation: Nov 01, 2018 Anesthesiologist: Charley ASA Score: ASA 4 Mallampati Score Class I : Soft palate, uvula, fauces, pillars visible Class II: Soft palate, uvula, fauces visible Class III: Soft palate, base of uvula visible Class IV: Only hard plate visible Mallampati Classification: Class III Surgeon: Pia Diagnosis: Sepsis Surgical Procedure: BENJAMIN Anesthesia History: none Family History: no anesthesia problems Allergies: Coded Allergies: MORPHINE (Verified Allergy, Severe, 11/07/10) NITROGLYCERIN (Verified Allergy, Severe, 11/07/10) KETOROLAC (Unverified Allergy, Intermediate, 03/14/14) FISH CONTAINING PRODUCTS (Verified Allergy, Mild, 07/20/14) per patient, "it knocks me out" ACETAMINOPHEN (Unverified Allergy, Unknown, 07/19/14) CODEINE (Unverified Allergy, Unknown, 11/03/13) UNKNOWN DIPHENHYDRAMINE (Unverified Allergy, Unknown, 09/30/14) IBUPROFEN (Unverified Allergy, Unknown, 11/03/13) UNKNOWN PROCHLORPERAZINE (Unverified Allergy, Unknown, 07/19/14) GABAPENTIN (Verified Adverse Reaction, Intermediate, 07/20/14) Per patient, it makes him sweat, throws up, and "blacks out" Medications: see eMAR Patient NPO?: Yes Past Medical History Cardiovascular: Reports: HTN, CAD, valve dz Neurologic/Psychiatric: Reports: CVA, depression/anxiety Endocrine: Reports: DM Hematology/Immune: Reports: anemia Musculoskeletal/Integumentary: Reports: other - Kawasaki Disease PSxH Narrative: L TKR, Laminectomy Anesthesia Pre-op Phys. Exam Physician Exam Last Vital Signs Date Time Temp Pulse Resp B/P (MAP) Pulse Ox O2 Delivery O2 Flow Rate FiO2 11/01/18 08:57 75 20 94 Room Air 21 11/01/18 04:00 98.4 147/63 (91) 10/31/18 07:00 2.0 Constitutional: NAD Neurologic: CN 2-12 intact Cardiovascular: RRR Respiratory: CTA Gastrointestinal: S/NT/ND Airway Exam Mallampati Score: Class III MO: limited ROM: limited Teeth: missing Anesthesia Pre-op A/P Labs Hematology Test 11/01/18 09:40 White Blood Count 14.0 K/UL (4.8-10.8) H Red Blood Count 3.44 M/UL (4.70-6.10) L Hemoglobin 10.6 G/DL (14.2-18.0) L Hematocrit 31.8 % (42.0-52.0) L Mean Corpuscular Volume 92 FL (80-99) Mean Corpuscular Hemoglobin 30.8 PG (27.0-31.0) Mean Corpuscular Hemoglobin Concent 33.3 G/DL (32.0-36.0) Red Cell Distribution Width 12.6 % (11.6-14.8) Platelet Count 136 K/UL (150-450) L Mean Platelet Volume 6.2 FL (6.5-10.1) L Neutrophils (%) (Auto) 72.0 % (45.0-75.0) Lymphocytes (%) (Auto) 9.6 % (20.0-45.0) L Monocytes (%) (Auto) 16.8 % (1.0-10.0) H Eosinophils (%) (Auto) 0.4 % (0.0-3.0) Basophils (%) (Auto) 1.1 % (0.0-2.0) Chemistry Test 11/01/18 09:40 Sodium Level Pending Potassium Level Pending Chloride Level Pending Carbon Dioxide Level Pending Blood Urea Nitrogen Pending Creatinine Pending Estimat Glomerular Filtration Rate Pending Glucose Level Pending Calcium Level Pending Risk Assessment & Plan Assessment: ASA 4 Plan: TIVA Status Change Before Surgery: No Murali Whitehead MD Nov 01, 2018 10:19
--- NOTE | 2018-11-01 10:23 | Immediate Post-Op Evaluation ---
Immediate Post-Op Evalulation Immediate Post-Op Evalulation Procedure: BENJAMIN Date of Evaluation: Nov 01, 2018 Blood Products: 0 Pain Score (1-10): 3 Nausea: No Vomiting: No Complications 0 Patient Status: awake, reacts, patent, none Hydration Status: adequate Murali Whitehead MD Nov 01, 2018 10:23
--- NOTE | 2018-11-01 11:00 | Pulmonology Progress Note ---
Assessment/Plan Problems: (1) Bacteremia (2) Acute coronary syndrome (3) HTN (hypertension) (4) CAD (coronary artery disease) (5) Aortic valve disorder (6) H/O aortic valve replacement (7) Thalamic pain syndrome Assessment/Plan for BENJAMIN today monitor BP continue abx f/u cardio recommendations symptomatic treatment Subjective ROS Limited/Unobtainable: No Constitutional: Reports: no symptoms HEENT: Repors: no symptoms Respiratory: Reports: no symptoms Cardiovascular: Reports: no symptoms Allergies: Coded Allergies: MORPHINE (Verified Allergy, Severe, 11/07/10) NITROGLYCERIN (Verified Allergy, Severe, 11/07/10) KETOROLAC (Unverified Allergy, Intermediate, 03/14/14) FISH CONTAINING PRODUCTS (Verified Allergy, Mild, 07/20/14) per patient, "it knocks me out" ACETAMINOPHEN (Unverified Allergy, Unknown, 07/19/14) CODEINE (Unverified Allergy, Unknown, 11/03/13) UNKNOWN DIPHENHYDRAMINE (Unverified Allergy, Unknown, 09/30/14) IBUPROFEN (Unverified Allergy, Unknown, 11/03/13) UNKNOWN PROCHLORPERAZINE (Unverified Allergy, Unknown, 07/19/14) GABAPENTIN (Verified Adverse Reaction, Intermediate, 07/20/14) Per patient, it makes him sweat, throws up, and "blacks out" Objective Last 24 Hour Vital Signs Date Time Temp Pulse Resp B/P (MAP) Pulse Ox O2 Delivery O2 Flow Rate FiO2 11/01/18 08:57 75 20 94 Room Air 21 11/01/18 08:25 Room Air 11/01/18 08:00 84 11/01/18 04:00 82 11/01/18 04:00 98.4 81 20 147/63 (91) 96 11/01/18 00:01 80 18 98 Room Air 21 11/01/18 00:00 98.8 78 20 127/65 (85) 96 11/01/18 00:00 82 10/31/18 23:50 21 10/31/18 23:50 77 18 95 Room Air 21 10/31/18 23:50 77 18 95 Room Air 10/31/18 21:00 Room Air 10/31/18 20:00 85 10/31/18 20:00 99.8 87 20 140/79 (99) 96 10/31/18 17:43 97.8 10/31/18 17:00 70 118/63 10/31/18 16:00 97.8 72 20 129/59 (82) 96 10/31/18 16:00 80 10/31/18 12:00 75 10/31/18 12:00 97.9 66 20 136/77 (96) 97 Intake and Output 10/31/18 11/01/18 19:00 07:00 Intake Total 535 ml Output Total 1200 ml 300 ml Balance -665 ml -300 ml Intake Oral 480 ml IV Total 55 ml Output Urine Total 1200 ml 300 ml General Appearance: WD/WN, no acute distress HEENT: normocephalic Respiratory/Chest: chest wall non-tender, lungs clear Cardiovascular: normal peripheral pulses, regular rhythm, no JVD Abdomen: normal bowel sounds, soft, non tender Genitourinary: normal external genitalia Extremities: no clubbing Skin: no rash Neurologic/Psychiatric: sequins spooler II-XII grossly normal Lymphatic: no neck adenopathy Laboratory Tests 11/01/18 09:40: White Blood Count 14.0H, Red Blood Count 3.44L, Hemoglobin 10.6L, Hematocrit 31.8L, Mean Corpuscular Volume 92, Mean Corpuscular Hemoglobin 30.8, Mean Corpuscular Hemoglobin Concent 33.3, Red Cell Distribution Width 12.6, Platelet Count 136L, Mean Platelet Volume 6.2L, Neutrophils (%) (Auto) 72.0, Lymphocytes (%) (Auto) 9.6L, Monocytes (%) (Auto) 16.8H, Eosinophils (%) (Auto) 0.4, Basophils (%) (Auto) 1.1, Sodium Level 138, Potassium Level 3.6, Chloride Level 106, Carbon Dioxide Level 26, Anion Gap 6, Blood Urea Nitrogen 13, Creatinine 1.1, Estimat Glomerular Filtration Rate , Glucose Level 112H, Calcium Level 8.5 Current Medications Medications (Trade) Dose Ordered Sig/Sheba Route PRN Reason Start Time Stop Time Status Last Admin Dose Admin Al Hydroxide/Mg Hydroxide (Mylanta) 15 ml Q1H PRN ORAL gi upset 11/01/18 10:00 11/01/18 18:00 Albuterol/ Ipratropium (Albuterol/ Ipratropium) 3 ml Q4H PRN HHN Shortness of Breath 10/30/18 15:00 11/04/18 14:59 10/31/18 23:52 Amlodipine Besylate (Norvasc) 10 mg DAILY ORAL 10/31/18 09:00 11/27/18 08:59 10/31/18 09:08 Apixaban (Eliquis) 2.5 mg BID ORAL 10/30/18 18:00 11/29/18 17:59 10/31/18 17:00 Atenolol (Tenormin) 50 mg BID ORAL 10/30/18 18:00 11/26/18 17:59 10/31/18 09:08 Atropine Sulfate (Atropine 0.4mg/ ml) 0.5 mg Q5M PRN IVP HR<40 11/01/18 10:00 11/01/18 18:00 Ceftriaxone Sodium 2 gm/ Dextrose 55 ml @ 110 mls/hr Q24H IVPB 10/31/18 13:00 11/05/18 12:59 10/31/18 12:31 Divalproex Sodium (Depakote) 500 mg Q12HR ORAL 10/30/18 21:00 11/26/18 20:59 10/31/18 21:49 Enalaprilat (Vasotec) 2.5 mg Q6H PRN IV sbp more than 160 10/30/18 15:30 11/26/18 15:29 Fentanyl Citrate (Sublimaze 100 mcg/2 mL) 25 mcg Q10M PRN IV Moderate Pain (Pain Scale 4-6) 11/01/18 10:00 11/01/18 18:00 Hydralazine HCl (Apresoline) 5 mg Q30M PRN IV SBP>160 / DBP>90 11/01/18 10:00 11/01/18 18:00 Hydromorphone HCl (Dilaudid) 0.5 mg Q3H PRN IVP MODERATE PAIN 10/30/18 15:00 11/04/18 14:59 11/01/18 06:52 Hydromorphone HCl (Dilaudid) 1 mg Q3H PRN IVP SEVERE PAIN 10/30/18 18:15 11/04/18 09:02 11/01/18 10:13 Labetalol HCl (Normodyne) 5 mg Q10M PRN IV SBP>160 / DBP>90 11/01/18 10:00 11/01/18 18:00 Lactated Ringer's 1,000 ml @ 10 mls/hr Q24H IVLG 11/01/18 09:59 11/01/18 11:58 Lorazepam (Ativan 2mg/ml 1ml) 1 mg Q15M PRN IV For Anxiety 11/01/18 10:00 11/01/18 18:00 Meperidine HCl (Demerol) 25 mg Q5M PRN IVP Shivering.May repeat x 1 11/01/18 10:00 11/01/18 16:00 Metoclopramide HCl (Reglan) 10 mg Q1H PRN IVP Nausea & Vomiting 11/01/18 10:00 11/01/18 18:00 Midazolam HCl (Versed 2mg/2ml vial) 1 mg Q15M PRN IVP For Anxiety 11/01/18 10:00 11/01/18 18:00 Ondansetron HCl (Zofran) 4 mg Q1H PRN IVP Nausea & Vomiting 11/01/18 10:00 11/01/18 18:00 Ondansetron HCl (Zofran) 4 mg Q6H PRN IVP Nausea & Vomiting 10/30/18 15:30 11/26/18 15:29 Polyethylene Glycol (Miralax) 17 gm DAILYPRN PRN ORAL Constipation 10/30/18 15:30 11/29/18 15:29 Temazepam (Restoril) 15 mg HSPRN PRN ORAL Insomnia 10/30/18 16:00 11/06/18 15:59 Melinda Rutledge MD Nov 01, 2018 11:00
--- NOTE | 2018-11-01 11:21 | Cardiology Report ---
APPROVED REPORT EKG Measurement Heart [id number] CT 200P64 [id number] Sinus rhythm with premature supraventricular complexes Left anterior fascicular block Septal infarct, age undetermined Abnormal ECG
[2018-11-01 12:00] VITALS: BP_SYST 145; BP_SYST 147; BP_DIAS 58; BP_DIAS 70
--- NOTE | 2018-11-01 12:05 | Infectious Diseases Prog Note ---
Assessment/Plan Assessment/Plan Assessment: Sepsis 2ry to Gram positive bacteremia (?source)- r/o endocarditis, aortic graft infection -10/27 BCx 2/2 GBS; 10/28 Bcx NTD -CXR: Borderline cardiomegaly.Thoracic endograft again demonstrated. No definite acute process -CTA c/abd/p w/wo: Somewhat limited exam due to lack of inclusion of the pelvis within the imaging volume. Postsurgical changes, status post surgical repair of the ascending thoracic aorta, status post stent graft repair of descending thoracic aorta. No evidence of leakage for rupture. No acute abnormality. Dilated main and left main pulmonary artery, consistent with pulmonary arterial hypertension. Mild hazy pulmonary opacity and centrilobular interstitial septal thickening in the upper lobes, could indicate mild pulmonary edema. Fatty liver. Incidental findings as noted, including hepatic capsular calcifications, left renal cysts, probable small right renal cysts -2d Echo: no vegetations -u/a no pyuria, nit +, leuk +1 Fever; improving Leukocytosis; persistent R Hip/back pain -L spine xray: No acute process. Mild degenerative changes -MRI hip: Mild degenerative changes of the right hip. No acute or significant osseous or joint abnormality otherwise. Incidental findings of small fat- containing right hernia and colonic diverticulosis pAfib s/p ablation 06/2017 HTN obesity R MCA thromboembolic stroke s/p laminectomy L TKR s/p revision and screw removal 06/2018 HTN s/p bioprosthetic AVR pain/somatization disorder aortic aneurysm s/p repair 2014, GERD drug-seeking behavior insomnia gout OA anxiety Plan: - Continue Ceftriaxone #4 (abx d #6) for GBS bacteremia - 10/29/18 SP Daptomycin #1 - 10/28/18 SP Vancomycin #2, Cefepime #2 -f/u cx -Monitor CBC/CMP, temperatures -Will need BENJAMIN to evaluate for endocarditis in setting of gram positive bacteremia and AVR -f/u WBC scan to eval for aortic graft infection -f/u Bcx x2 Thank you for this consultation. Will continue to follow along with you. Subjective Allergies: Coded Allergies: MORPHINE (Verified Allergy, Severe, 11/07/10) NITROGLYCERIN (Verified Allergy, Severe, 11/07/10) KETOROLAC (Unverified Allergy, Intermediate, 03/14/14) FISH CONTAINING PRODUCTS (Verified Allergy, Mild, 07/20/14) per patient, "it knocks me out" ACETAMINOPHEN (Unverified Allergy, Unknown, 07/19/14) CODEINE (Unverified Allergy, Unknown, 11/03/13) UNKNOWN DIPHENHYDRAMINE (Unverified Allergy, Unknown, 09/30/14) IBUPROFEN (Unverified Allergy, Unknown, 11/03/13) UNKNOWN PROCHLORPERAZINE (Unverified Allergy, Unknown, 07/19/14) GABAPENTIN (Verified Adverse Reaction, Intermediate, 07/20/14) Per patient, it makes him sweat, throws up, and "blacks out" Subjective afebrile in >24hrs leukocytosis persistent repeat Bcx NTD Objective Vital Signs Last 24 Hour Vital Signs Date Time Temp Pulse Resp B/P (MAP) Pulse Ox O2 Delivery O2 Flow Rate FiO2 11/01/18 08:57 75 20 94 Room Air 21 11/01/18 08:25 Room Air 11/01/18 08:00 84 11/01/18 04:00 82 11/01/18 04:00 98.4 81 20 147/63 (91) 96 11/01/18 00:01 80 18 98 Room Air 21 11/01/18 00:00 98.8 78 20 127/65 (85) 96 11/01/18 00:00 82 10/31/18 23:50 21 10/31/18 23:50 77 18 95 Room Air 21 10/31/18 23:50 77 18 95 Room Air 10/31/18 21:00 Room Air 10/31/18 20:00 85 10/31/18 20:00 99.8 87 20 140/79 (99) 96 10/31/18 17:43 97.8 10/31/18 17:00 70 118/63 10/31/18 16:00 97.8 72 20 129/59 (82) 96 10/31/18 16:00 80 Height (Feet): 6 Height (Inches): 1.00 Weight (Pounds): 280 Laboratory Tests Test 11/01/18 09:40 White Blood Count 14.0 K/UL (4.8-10.8) H Red Blood Count 3.44 M/UL (4.70-6.10) L Hemoglobin 10.6 G/DL (14.2-18.0) L Hematocrit 31.8 % (42.0-52.0) L Mean Corpuscular Volume 92 FL (80-99) Mean Corpuscular Hemoglobin 30.8 PG (27.0-31.0) Mean Corpuscular Hemoglobin Concent 33.3 G/DL (32.0-36.0) Red Cell Distribution Width 12.6 % (11.6-14.8) Platelet Count 136 K/UL (150-450) L Mean Platelet Volume 6.2 FL (6.5-10.1) L Neutrophils (%) (Auto) 72.0 % (45.0-75.0) Lymphocytes (%) (Auto) 9.6 % (20.0-45.0) L Monocytes (%) (Auto) 16.8 % (1.0-10.0) H Eosinophils (%) (Auto) 0.4 % (0.0-3.0) Basophils (%) (Auto) 1.1 % (0.0-2.0) Sodium Level 138 MMOL/L (136-145) Potassium Level 3.6 MMOL/L (3.5-5.1) Chloride Level 106 MMOL/L (98-107) Carbon Dioxide Level 26 MMOL/L (21-32) Anion Gap 6 mmol/L (5-15) Blood Urea Nitrogen 13 mg/dL (7-18) Creatinine 1.1 MG/DL (0.55-1.30) Estimat Glomerular Filtration Rate mL/min (>60) Glucose Level 112 MG/DL (74-106) H Calcium Level 8.5 MG/DL (8.5-10.1) Current Medications Medications (Trade) Dose Ordered Sig/Sheba Route PRN Reason Start Time Stop Time Status Last Admin Dose Admin Al Hydroxide/Mg Hydroxide (Mylanta) 15 ml Q1H PRN ORAL gi upset 11/01/18 10:00 11/01/18 18:00 Albuterol/ Ipratropium (Albuterol/ Ipratropium) 3 ml Q4H PRN HHN Shortness of Breath 10/30/18 15:00 11/04/18 14:59 10/31/18 23:52 Amlodipine Besylate (Norvasc) 10 mg DAILY ORAL 10/31/18 09:00 11/27/18 08:59 10/31/18 09:08 Apixaban (Eliquis) 2.5 mg BID ORAL 10/30/18 18:00 11/29/18 17:59 10/31/18 17:00 Atenolol (Tenormin) 50 mg BID ORAL 10/30/18 18:00 11/26/18 17:59 10/31/18 09:08 Atropine Sulfate (Atropine 0.4mg/ ml) 0.5 mg Q5M PRN IVP HR<40 11/01/18 10:00 11/01/18 18:00 Ceftriaxone Sodium 2 gm/ Dextrose 55 ml @ 110 mls/hr Q24H IVPB 10/31/18 13:00 11/05/18 12:59 10/31/18 12:31 Divalproex Sodium (Depakote) 500 mg Q12HR ORAL 10/30/18 21:00 11/26/18 20:59 10/31/18 21:49 Enalaprilat (Vasotec) 2.5 mg Q6H PRN IV sbp more than 160 10/30/18 15:30 11/26/18 15:29 Fentanyl Citrate (Sublimaze 100 mcg/2 mL) 25 mcg Q10M PRN IV Moderate Pain (Pain Scale 4-6) 11/01/18 10:00 11/01/18 18:00 Hydralazine HCl (Apresoline) 5 mg Q30M PRN IV SBP>160 / DBP>90 11/01/18 10:00 11/01/18 18:00 Hydromorphone HCl (Dilaudid) 0.5 mg Q3H PRN IVP MODERATE PAIN 10/30/18 15:00 11/04/18 14:59 11/01/18 06:52 Hydromorphone HCl (Dilaudid) 1 mg Q3H PRN IVP SEVERE PAIN 10/30/18 18:15 11/04/18 09:02 11/01/18 10:13 Labetalol HCl (Normodyne) 5 mg Q10M PRN IV SBP>160 / DBP>90 11/01/18 10:00 11/01/18 18:00 Lorazepam (Ativan 2mg/ml 1ml) 1 mg Q15M PRN IV For Anxiety 11/01/18 10:00 11/01/18 18:00 Meperidine HCl (Demerol) 25 mg Q5M PRN IVP Shivering.May repeat x 1 11/01/18 10:00 11/01/18 16:00 Metoclopramide HCl (Reglan) 10 mg Q1H PRN IVP Nausea & Vomiting 11/01/18 10:00 11/01/18 18:00 Midazolam HCl (Versed 2mg/2ml vial) 1 mg Q15M PRN IVP For Anxiety 11/01/18 10:00 11/01/18 18:00 Ondansetron HCl (Zofran) 4 mg Q1H PRN IVP Nausea & Vomiting 11/01/18 10:00 11/01/18 18:00 Ondansetron HCl (Zofran) 4 mg Q6H PRN IVP Nausea & Vomiting 10/30/18 15:30 11/26/18 15:29 Polyethylene Glycol (Miralax) 17 gm DAILYPRN PRN ORAL Constipation 10/30/18 15:30 11/29/18 15:29 Temazepam (Restoril) 15 mg HSPRN PRN ORAL Insomnia 10/30/18 16:00 11/06/18 15:59 Bree Steel M.D. Nov 01, 2018 12:05
--- NOTE | 2018-11-01 12:59 | Cardiology Progress Note ---
Assessment/Plan Problem List: (1) Paroxysmal atrial fibrillation Assessment & Plan: s/p ablation. He had SR w/ PACs on adm. 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 gu source. r/o endocarditis (6) S/P aortic valve replacement Status: doing well, stable Status Narrative Mr. Lujan is afebrile. WBC continues to increase. He has group b strep UTI and bacteremia- r/o aortic graft or prosthetic valve infection, endocarditis. 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 Indium scan performed - results pending. Pt refuses BENJAMIN - Dr. Palacio has evaluated the pt today Continue anticoagulation for PAF. Rhythm stable on telemetry Lasix prn for pulm congestion Subjective ROS Limited/Unobtainable: No Subjective Cardiology/ EP Mr. Lujan is seen in nuclear med- post-indium scan He reports improvement in dyspnea and no cp Objective Last 24 Hour Vital Signs Date Time Temp Pulse Resp B/P (MAP) Pulse Ox O2 Delivery O2 Flow Rate FiO2 11/01/18 08:57 75 20 94 Room Air 21 11/01/18 08:25 Room Air 11/01/18 08:00 84 11/01/18 04:00 82 11/01/18 04:00 98.4 81 20 147/63 (91) 96 11/01/18 00:01 80 18 98 Room Air 21 11/01/18 00:00 98.8 78 20 127/65 (85) 96 11/01/18 00:00 82 10/31/18 23:50 21 10/31/18 23:50 77 18 95 Room Air 21 10/31/18 23:50 77 18 95 Room Air 10/31/18 21:00 Room Air 10/31/18 20:00 85 10/31/18 20:00 99.8 87 20 140/79 (99) 96 10/31/18 17:43 97.8 10/31/18 17:00 70 118/63 10/31/18 16:00 97.8 72 20 129/59 (82) 96 10/31/18 16:00 80 General Appearance: WD/WN, no apparent distress, alert EENT: PERRL/EOMI Neck: non-tender, supple, no JVD Rhythm: NSR Cardiovascular: normal rate, regular rhythm, systolic murmur - ii/vi NESHA along LSB Respiratory/Chest: lungs clear - clear anteriorly Abdomen: non tender, soft, no organomegaly Extremities: trace edema Neurologic: no motor/sensory deficits, alert, oriented x 3 Intake and Output 10/31/18 11/01/18 19:00 07:00 Intake Total 535 ml Output Total 1200 ml 300 ml Balance -665 ml -300 ml Intake Oral 480 ml IV Total 55 ml Output Urine Total 1200 ml 300 ml Laboratory Tests Test 11/01/18 09:40 White Blood Count 14.0 K/UL (4.8-10.8) H Red Blood Count 3.44 M/UL (4.70-6.10) L Hemoglobin 10.6 G/DL (14.2-18.0) L Hematocrit 31.8 % (42.0-52.0) L Mean Corpuscular Volume 92 FL (80-99) Mean Corpuscular Hemoglobin 30.8 PG (27.0-31.0) Mean Corpuscular Hemoglobin Concent 33.3 G/DL (32.0-36.0) Red Cell Distribution Width 12.6 % (11.6-14.8) Platelet Count 136 K/UL (150-450) L Mean Platelet Volume 6.2 FL (6.5-10.1) L Neutrophils (%) (Auto) 72.0 % (45.0-75.0) Lymphocytes (%) (Auto) 9.6 % (20.0-45.0) L Monocytes (%) (Auto) 16.8 % (1.0-10.0) H Eosinophils (%) (Auto) 0.4 % (0.0-3.0) Basophils (%) (Auto) 1.1 % (0.0-2.0) Sodium Level 138 MMOL/L (136-145) Potassium Level 3.6 MMOL/L (3.5-5.1) Chloride Level 106 MMOL/L (98-107) Carbon Dioxide Level 26 MMOL/L (21-32) Anion Gap 6 mmol/L (5-15) Blood Urea Nitrogen 13 mg/dL (7-18) Creatinine 1.1 MG/DL (0.55-1.30) Estimat Glomerular Filtration Rate mL/min (>60) Glucose Level 112 MG/DL (74-106) H Calcium Level 8.5 MG/DL (8.5-10.1) Karyna Wheatley MD Nov 01, 2018 12:59
--- NOTE | 2018-11-01 13:05 | NUR ---
Indium WBC Scan: Scan is complete, however the patient refused to have his entire body scanned. Patient refused to go into the scanner above his waist despite being educated on the importance of scanning his upper body. Patient was offered anti-anxiety medicine which he refused. Patient then refused additional scanning centered on his knees despite being educated on the importance of the additional scanning.
[2018-11-01] MEDS: cefTRIAXone 2 GM in D5W 55 ML IVPB SCH (13:15)
--- NOTE | 2018-11-01 13:39 | NUR ---
RD ASSESSMENT & RECOMMENDATIONS SEE CARE ACTIVITY FOR COMPLETE ASSESSMENT DAILY ESTIMATED NEEDS: Needs based on Cardiac, obesity/ 94.2kg 20-25 kcals/kg 8706-3648 total kcals 1-1.3 g protein/kg 94-126 g total protein 20-25 mL/kg 4844-7183 total fluid mLs NUTRITION DIAGNOSIS: * Decreased sodium intake needs R/T cardiac hx as evidenced by h/o CVA, h/o aortic valve replacement, dx of CAD, HTN and afib. CURRENT DIET:REGULAR PO DIET RECOMMENDATIONS: LOW NA, texture as tolerated ADDITIONAL RECOMMENDATIONS: * Standing wt for accurate CBW * A1C for eval of glycemic control * Monitor BGs closely, need for carb controlled diet * Texture as tolerated or per JALOUSIE INSTALLER: h/o CVA
--- NOTE | 2018-11-01 14:47 | Diagnostic Imaging Report ---
Indication: Unexplained leukocytosis Technique: In vitro labeling of white blood cells with 409 uCi of indium-111. Imaging performed at 24 hours. Note that due to claustrophobia, patient would not introduce any body parts above is displaced into the scanner, so only images of the lower extremities and pelvis are provided. Comparison: none Findings: Exam is extremely limited due to exclusion of the head, upper extremities, and more so the torso from the imaging volume; nondiagnostic as regards the possibility of pathology in these areas. There is evidence of circumferential increased soft tissue activity in the left distal thigh and the patient's appears to be superficial. Activity is abnormal although not particularly intense. There is suggestion of considerable upper pelvic activity on the posterior views which is incompletely included. Impression: Very limited exam, with no body parts above the upper pelvis imaged. Abnormal circumferential superficial activity involving the distal thigh and knee. This raises concern for soft tissue cellulitis. Conceivably, this could also represent septic arthritis of the knee but activity is much more peripheral than is likely for this entity. Correlation with clinical findings is recommended Apparent prominent upper pelvic activity seen in the upper imaging volume particularly on the posterior views. Significance of this is uncertain
[2018-11-01 16:00] VITALS: BP 128/71
--- NOTE | 2018-11-01 16:57 | Internal Med Progress Note ---
Subjective Date of Service: Nov 01, 2018 Physician Name Tate Cedeno Attending Physician Tao Marcial MD Current Medications Medications (Trade) Dose Ordered Sig/Sheba Route PRN Reason Start Time Stop Time Status Last Admin Dose Admin Al Hydroxide/Mg Hydroxide (Mylanta) 15 ml Q1H PRN ORAL gi upset 11/01/18 10:00 11/01/18 18:00 Albuterol/ Ipratropium (Albuterol/ Ipratropium) 3 ml Q4H PRN HHN Shortness of Breath 10/30/18 15:00 11/04/18 14:59 10/31/18 23:52 Amlodipine Besylate (Norvasc) 10 mg DAILY ORAL 10/31/18 09:00 11/27/18 08:59 10/31/18 09:08 Apixaban (Eliquis) 2.5 mg BID ORAL 10/30/18 18:00 11/29/18 17:59 10/31/18 17:00 Atenolol (Tenormin) 50 mg BID ORAL 10/30/18 18:00 11/26/18 17:59 10/31/18 09:08 Atropine Sulfate (Atropine 0.4mg/ ml) 0.5 mg Q5M PRN IVP HR<40 11/01/18 10:00 11/01/18 18:00 Ceftriaxone Sodium 2 gm/ Dextrose 55 ml @ 110 mls/hr Q24H IVPB 10/31/18 13:00 11/05/18 12:59 11/01/18 13:15 Divalproex Sodium (Depakote) 500 mg Q12HR ORAL 10/30/18 21:00 11/26/18 20:59 10/31/18 21:49 Enalaprilat (Vasotec) 2.5 mg Q6H PRN IV sbp more than 160 10/30/18 15:30 11/26/18 15:29 Fentanyl Citrate (Sublimaze 100 mcg/2 mL) 25 mcg Q10M PRN IV Moderate Pain (Pain Scale 4-6) 11/01/18 10:00 11/01/18 18:00 Hydralazine HCl (Apresoline) 5 mg Q30M PRN IV SBP>160 / DBP>90 11/01/18 10:00 11/01/18 18:00 Hydromorphone HCl (Dilaudid) 0.5 mg Q3H PRN IVP MODERATE PAIN 10/30/18 15:00 11/04/18 14:59 11/01/18 14:00 Hydromorphone HCl (Dilaudid) 1 mg Q3H PRN IVP SEVERE PAIN 10/30/18 18:15 11/04/18 09:02 11/01/18 10:13 Labetalol HCl (Normodyne) 5 mg Q10M PRN IV SBP>160 / DBP>90 11/01/18 10:00 11/01/18 18:00 Lorazepam (Ativan 2mg/ml 1ml) 1 mg Q15M PRN IV For Anxiety 11/01/18 10:00 11/01/18 18:00 Metoclopramide HCl (Reglan) 10 mg Q1H PRN IVP Nausea & Vomiting 11/01/18 10:00 11/01/18 18:00 Midazolam HCl (Versed 2mg/2ml vial) 1 mg Q15M PRN IVP For Anxiety 11/01/18 10:00 11/01/18 18:00 Ondansetron HCl (Zofran) 4 mg Q1H PRN IVP Nausea & Vomiting 11/01/18 10:00 11/01/18 18:00 Ondansetron HCl (Zofran) 4 mg Q6H PRN IVP Nausea & Vomiting 10/30/18 15:30 11/26/18 15:29 Polyethylene Glycol (Miralax) 17 gm DAILYPRN PRN ORAL Constipation 10/30/18 15:30 11/29/18 15:29 Temazepam (Restoril) 15 mg HSPRN PRN ORAL Insomnia 10/30/18 16:00 11/06/18 15:59 Allergies: Coded Allergies: MORPHINE (Verified Allergy, Severe, 11/07/10) NITROGLYCERIN (Verified Allergy, Severe, 11/07/10) KETOROLAC (Unverified Allergy, Intermediate, 03/14/14) FISH CONTAINING PRODUCTS (Verified Allergy, Mild, 07/20/14) per patient, "it knocks me out" ACETAMINOPHEN (Unverified Allergy, Unknown, 07/19/14) CODEINE (Unverified Allergy, Unknown, 11/03/13) UNKNOWN DIPHENHYDRAMINE (Unverified Allergy, Unknown, 09/30/14) IBUPROFEN (Unverified Allergy, Unknown, 11/03/13) UNKNOWN PROCHLORPERAZINE (Unverified Allergy, Unknown, 07/19/14) GABAPENTIN (Verified Adverse Reaction, Intermediate, 07/20/14) Per patient, it makes him sweat, throws up, and "blacks out" ROS Limited/Unobtainable: No Constitutional: Reports: no symptoms HEENT: Reports: no symptoms Cardiovascular: Reports: no symptoms Respiratory: Reports: no symptoms Gastrointestinal/Abdominal: Reports: no symptoms Genitourinary: Reports: no symptoms Neurologic/Psychiatric: Reports: no symptoms Subjective 73 YO M admitted with gen weakness. Now sepsis. Cover for Int Syed-DR Marcial Objective Last Vital Signs Date Time Temp Pulse Resp B/P (MAP) Pulse Ox O2 Delivery O2 Flow Rate FiO2 11/01/18 14:30 97.5 11/01/18 12:00 79 18 145/70 (95) 96 11/01/18 08:57 Room Air 21 10/31/18 07:00 2.0 Laboratory Tests Test 11/01/18 09:40 White Blood Count 14.0 K/UL (4.8-10.8) H Red Blood Count 3.44 M/UL (4.70-6.10) L Hemoglobin 10.6 G/DL (14.2-18.0) L Hematocrit 31.8 % (42.0-52.0) L Mean Corpuscular Volume 92 FL (80-99) Mean Corpuscular Hemoglobin 30.8 PG (27.0-31.0) Mean Corpuscular Hemoglobin Concent 33.3 G/DL (32.0-36.0) Red Cell Distribution Width 12.6 % (11.6-14.8) Platelet Count 136 K/UL (150-450) L Mean Platelet Volume 6.2 FL (6.5-10.1) L Neutrophils (%) (Auto) 72.0 % (45.0-75.0) Lymphocytes (%) (Auto) 9.6 % (20.0-45.0) L Monocytes (%) (Auto) 16.8 % (1.0-10.0) H Eosinophils (%) (Auto) 0.4 % (0.0-3.0) Basophils (%) (Auto) 1.1 % (0.0-2.0) Sodium Level 138 MMOL/L (136-145) Potassium Level 3.6 MMOL/L (3.5-5.1) Chloride Level 106 MMOL/L (98-107) Carbon Dioxide Level 26 MMOL/L (21-32) Anion Gap 6 mmol/L (5-15) Blood Urea Nitrogen 13 mg/dL (7-18) Creatinine 1.1 MG/DL (0.55-1.30) Estimat Glomerular Filtration Rate mL/min (>60) Glucose Level 112 MG/DL (74-106) H Calcium Level 8.5 MG/DL (8.5-10.1) Intake and Output 10/31/18 11/01/18 19:00 07:00 Intake Total 535 ml Output Total 1200 ml 300 ml Balance -665 ml -300 ml Intake Oral 480 ml IV Total 55 ml Output Urine Total 1200 ml 300 ml Objective Objective General: No acute distress, awake and alert HEENT: NCAT, sclera anicteric, PERRL, EOMI. Neck: Supple, no significant jugular venous distention, Lungs: Good inspiratory effort, decrease air at bases,, no Wheeze or Rales. Heart: Regular rate and rhythm, normal S1/S2, no murmurs Abdomen: soft, nontender, nondistended. Normoactive bowel sounds, obesity, Right hip pain. / Rectal: Refused and deferred. Extremities: No Cyanosis , clubbing or edema. Neuro: A&O x 3, Able to move all extremities Skin: warm, no rashes or lesions Psych: Normal mood and affect Assessment/Plan Assessment/Plan Assessment/Plan Assessment/Plan 1. Sepsis - r/o endocarditis, aortic graft infection -10/27 BCx 2/2 GPC --> STREP AGALACTIAE GROUP B 2. Urinary tract infection with lactic acidosis. 3. Right hip pain. 4. Coronary artery disease. 5. 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 6. Hypertension. 7. History of cervical disk disease with myelopathy. 8. Aortic valve replacement. 9. Descending aortic aneurysm repair. 10.Thrombocytopenia. PLAN: Monitor labs and cultures. Abx: Ceftriaxone resume lower dose Eliquis due to thrombocytopenia Code status is Full Code. DVT prophylaxis: SCD OOB to chair, PT mobility. Tate Cedeno MD Nov 01, 2018 16:57
--- NOTE | 2018-11-01 19:00 | Consultation ---
DATE OF CONSULTATION: 11/01/2018 PREPROCEDURE DISCUSSION Date of this evaluation and management is 11/01/2018. I was asked by Dr. Wheatley who is the patient's primary director report to perform transesophageal echocardiogram on him. I discussed the case with the patient's on 10/31/2018 in the evening and the indication for the procedure and the risks and possible complications were fully discussed with the patient. They indicate that he was wanting to have the procedure performed in the evening, he had even signed the consent forms. Informed consent was obtained. This morning, I received a call from the breeder hen service technician from the GI lab that the patient was refusing to come down to the GI lab because of pain. On discussion with the nurse, the patient wanted to get pain medication to be allowed to rest initially. When I talked with him, he asked me several questions which I answered, possibilities of this complications of the procedure were again fully discussed with the patient and he made threatening remarks that he was talking with his fingerprint classifier that if something would happen to him that everybody would be brought to justice. In that regard, made me uncomfortable to having the procedure performed despite the very risk of the procedure and I informed to him that I would no longer be considered performing that procedure. So should he change his mind in the future, he will need to find another director report who would do that for him either here or at a different facility. Message was sent to Dr. Wheatley as well in that regard. Isauro Palacio M.D. DR: [place] JOB#: [id number] CC:
--- NOTE | 2018-11-01 19:40 | NUR ---
HAND-OFF: Report given to KRYSTIAN Castro. Plan of care endorsed.
--- NOTE | 2018-11-01 19:41 | NUR ---
NURSE NOTES: Received patient from Anai RN, patient is awake and oriented x3. Receiving oxygen via room air, patient showing no signs of respiratory distress. IV site is right AC 22g, patent and asymptomatic. Bed is locked, placved in lowest position, side rails up x3, Bed alarm on, will continue to monitor.
[2018-11-01 20:00] VITALS: BP 109/62
[2018-11-02] MEDS: Hydromorphone 0.5mg/0.5ml inj IVP PRN ×4 (01:48→20:23)
[2018-11-02 06:39] LABS: HEMATOCRIT 33.2 % (42.0-52.0); MEAN CORPUSCULAR VOLUME 93 FL (80-99); PLATELET COUNT 177 K/UL (150-450); RED BLOOD COUNT 3.58 M/UL (4.70-6.10); RED CELL DISTRIBUTION WIDTH 12.6 % (11.6-14.8); WHITE BLOOD COUNT 14.3 K/UL (4.8-10.8)
[2018-11-02 07:19] LABS: ALANINE AMINOTRANSFERASE 23 U/L (12-78); ALBUMIN 2.1 G/DL (3.4-5.0); ALBUMIN/GLOBULIN RATIO 0.5 (1.0-2.7); ALKALINE PHOSPHATASE 75 U/L (46-116); ANION GAP 6 mmol/L (5-15); ASPARTATE AMINO TRANSFERASE 29 U/L (15-37); BILIRUBIN,TOTAL 0.8 MG/DL (0.2-1.0); BLOOD UREA NITROGEN 13 mg/dL (7-18); CALCIUM 8.6 MG/DL (8.5-10.1); CARBON DIOXIDE 26 MMOL/L (21-32); CHLORIDE 108 MMOL/L (98-107); CREATININE 1.1 MG/DL (0.55-1.30); PHOSPHORUS 2.3 MG/DL (2.5-4.9); POTASSIUM 3.7 MMOL/L (3.5-5.1); SODIUM 140 MMOL/L (136-145)
--- NOTE | 2018-11-02 07:20 | NUR ---
NURSE NOTES: Report received from KRYSTIAN Hughes. Pateint AOx4. IN RA. Denies SOB. R AC 22g, IV sluggish however, patent, site intact. L hand edema noted. Bed on lowest position, side rails upx2, brakes engaged. Call light within easy reach.
--- NOTE | 2018-11-02 07:21 | NUR ---
HAND-OFF: Report given to Landen BOLAND.
[2018-11-02 08:00] VITALS: BP 114/62
[2018-11-02] MEDS: Eliquis 2.5mg tablet ORAL SCH ×2 (09:02→17:07)
[2018-11-02] MEDS: Depakote 500mg tab ORAL SCH ×2 (09:08→22:05)
[2018-11-02] MEDS: HYDROmorphone 1mg/ml Carpuject IVP PRN ×3 (09:12→13:03)
--- NOTE | 2018-11-02 10:31 | Pulmonology Progress Note ---
Assessment/Plan Problems: (1) Bacteremia (2) Acute coronary syndrome (3) HTN (hypertension) (4) CAD (coronary artery disease) (5) Aortic valve disorder (6) H/O aortic valve replacement (7) Thalamic pain syndrome Assessment/Plan pt refused BENJAMIN monitor BP continue abx for bacteremia, f/u cardio recommendations symptomatic treatment Subjective ROS Limited/Unobtainable: No Constitutional: Reports: no symptoms HEENT: Repors: no symptoms Respiratory: Reports: no symptoms Allergies: Coded Allergies: MORPHINE (Verified Allergy, Severe, 11/07/10) NITROGLYCERIN (Verified Allergy, Severe, 11/07/10) KETOROLAC (Unverified Allergy, Intermediate, 03/14/14) FISH CONTAINING PRODUCTS (Verified Allergy, Mild, 07/20/14) per patient, "it knocks me out" ACETAMINOPHEN (Unverified Allergy, Unknown, 07/19/14) CODEINE (Unverified Allergy, Unknown, 11/03/13) UNKNOWN DIPHENHYDRAMINE (Unverified Allergy, Unknown, 09/30/14) IBUPROFEN (Unverified Allergy, Unknown, 11/03/13) UNKNOWN PROCHLORPERAZINE (Unverified Allergy, Unknown, 07/19/14) GABAPENTIN (Verified Adverse Reaction, Intermediate, 07/20/14) Per patient, it makes him sweat, throws up, and "blacks out" Objective Last 24 Hour Vital Signs Date Time Temp Pulse Resp B/P (MAP) Pulse Ox O2 Delivery O2 Flow Rate FiO2 11/02/18 08:11 75 18 95 Room Air 21 11/02/18 08:00 98.6 76 18 114/62 (79) 93 11/02/18 03:44 79 11/01/18 23:33 76 11/01/18 21:47 71 16 95 Room Air 21 11/01/18 21:00 Room Air 11/01/18 20:00 98.8 74 18 109/62 (78) 96 11/01/18 19:16 78 11/01/18 17:05 89 128/71 11/01/18 16:00 89 11/01/18 16:00 99.0 89 20 128/71 (90) 96 11/01/18 14:30 97.5 11/01/18 12:00 97.5 79 18 145/70 (95) 96 11/01/18 12:00 79 Intake and Output 11/01/18 11/02/18 19:00 07:00 Intake Total 300 ml 240 ml Output Total 1200 ml 400 ml Balance -900 ml -160 ml Intake Oral 300 ml 240 ml Output Urine Total 1200 ml 400 ml # Voids 3 # Bowel Movements 2 General Appearance: WD/WN, no acute distress Respiratory/Chest: chest wall non-tender, lungs clear Cardiovascular: normal peripheral pulses, normal rate Abdomen: normal bowel sounds, soft, non tender Genitourinary: normal external genitalia Neurologic/Psychiatric: 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 grossly normal Laboratory Tests 11/02/18 06:00: White Blood Count 14.3H, Red Blood Count 3.58L, Hemoglobin 11.0L, Hematocrit 33.2L, Mean Corpuscular Volume 93, Mean Corpuscular Hemoglobin 30.7, Mean Corpuscular Hemoglobin Concent 33.0, Red Cell Distribution Width 12.6, Platelet Count 177, Mean Platelet Volume 7.3, Neutrophils (%) (Auto) , Lymphocytes (%) ( Auto) , Monocytes (%) (Auto) , Eosinophils (%) (Auto) , Basophils (%) (Auto) , Differential Total Cells Counted 100, Neutrophils % (Manual) 76H, Lymphocytes % (Manual) 14L, Monocytes % (Manual) 10, Eosinophils % (Manual) 0, Basophils % ( Manual) 0, Band Neutrophils 0, Platelet Estimate Adequate, Platelet Morphology Normal, Hypochromasia 1+, Erythrocyte Sedimentation Rate 79H, Sodium Level 140, Potassium Level 3.7, Chloride Level 108H, Carbon Dioxide Level 26, Anion Gap 6, Blood Urea Nitrogen 13, Creatinine 1.1, Estimat Glomerular Filtration Rate , Glucose Level 129H, Calcium Level 8.6, Phosphorus Level 2.3L, Magnesium Level 2.0, Total Bilirubin 0.8, Aspartate Amino Transf (AST/SGOT) 29, Alanine Aminotransferase (ALT/SGPT) 23, Alkaline Phosphatase 75, C-Reactive Protein, Quantitative 25.0H, Pro-B-Type Natriuretic Peptide 1065H, Total Protein 6.0L, Albumin 2.1L, Globulin 3.9, Albumin/Globulin Ratio 0.5L Current Medications Medications (Trade) Dose Ordered Sig/Sheba Route PRN Reason Start Time Stop Time Status Last Admin Dose Admin Albuterol/ Ipratropium (Albuterol/ Ipratropium) 3 ml Q4H PRN HHN Shortness of Breath 10/30/18 15:00 11/04/18 14:59 10/31/18 23:52 Amlodipine Besylate (Norvasc) 10 mg DAILY ORAL 10/31/18 09:00 11/27/18 08:59 10/31/18 09:08 Apixaban (Eliquis) 2.5 mg BID ORAL 10/30/18 18:00 11/29/18 17:59 11/02/18 09:02 Atenolol (Tenormin) 50 mg BID ORAL 10/30/18 18:00 11/26/18 17:59 11/01/18 17:05 Ceftriaxone Sodium 2 gm/ Dextrose 55 ml @ 110 mls/hr Q24H IVPB 10/31/18 13:00 11/05/18 12:59 11/01/18 13:15 Divalproex Sodium (Depakote) 500 mg Q12HR ORAL 10/30/18 21:00 11/26/18 20:59 11/02/18 09:08 Enalaprilat (Vasotec) 2.5 mg Q6H PRN IV sbp more than 160 10/30/18 15:30 11/26/18 15:29 Hydromorphone HCl (Dilaudid) 0.5 mg Q3H PRN IVP MODERATE PAIN 10/30/18 15:00 11/04/18 14:59 11/02/18 01:48 Hydromorphone HCl (Dilaudid) 1 mg Q3H PRN IVP SEVERE PAIN 10/30/18 18:15 11/04/18 09:02 11/02/18 09:19 Ondansetron HCl (Zofran) 4 mg Q6H PRN IVP Nausea & Vomiting 10/30/18 15:30 11/26/18 15:29 Polyethylene Glycol (Miralax) 17 gm DAILYPRN PRN ORAL Constipation 10/30/18 15:30 11/29/18 15:29 Temazepam (Restoril) 15 mg HSPRN PRN ORAL Insomnia 10/30/18 16:00 11/06/18 15:59 Melinda Rutledge MD Nov 02, 2018 10:31
--- NOTE | 2018-11-02 11:34 | Internal Med Progress Note ---
Subjective Date of Service: Nov 02, 2018 Physician Name Tate Cedeno Attending Physician Tao Marcial MD Current Medications Medications (Trade) Dose Ordered Sig/Sheba Route PRN Reason Start Time Stop Time Status Last Admin Dose Admin Albuterol/ Ipratropium (Albuterol/ Ipratropium) 3 ml Q4H PRN HHN Shortness of Breath 10/30/18 15:00 11/04/18 14:59 10/31/18 23:52 Amlodipine Besylate (Norvasc) 10 mg DAILY ORAL 10/31/18 09:00 11/27/18 08:59 10/31/18 09:08 Apixaban (Eliquis) 2.5 mg BID ORAL 10/30/18 18:00 11/29/18 17:59 11/02/18 09:02 Atenolol (Tenormin) 50 mg BID ORAL 10/30/18 18:00 11/26/18 17:59 11/01/18 17:05 Ceftriaxone Sodium 2 gm/ Dextrose 55 ml @ 110 mls/hr Q24H IVPB 10/31/18 13:00 11/05/18 12:59 11/01/18 13:15 Divalproex Sodium (Depakote) 500 mg Q12HR ORAL 10/30/18 21:00 11/26/18 20:59 11/02/18 09:08 Enalaprilat (Vasotec) 2.5 mg Q6H PRN IV sbp more than 160 10/30/18 15:30 11/26/18 15:29 Hydromorphone HCl (Dilaudid) 0.5 mg Q3H PRN IVP MODERATE PAIN 10/30/18 15:00 11/04/18 14:59 11/02/18 01:48 Hydromorphone HCl (Dilaudid) 1 mg Q3H PRN IVP SEVERE PAIN 10/30/18 18:15 11/04/18 09:02 11/02/18 09:19 Ondansetron HCl (Zofran) 4 mg Q6H PRN IVP Nausea & Vomiting 10/30/18 15:30 11/26/18 15:29 Polyethylene Glycol (Miralax) 17 gm DAILYPRN PRN ORAL Constipation 10/30/18 15:30 11/29/18 15:29 Temazepam (Restoril) 15 mg HSPRN PRN ORAL Insomnia 10/30/18 16:00 11/06/18 15:59 Allergies: Coded Allergies: MORPHINE (Verified Allergy, Severe, 11/07/10) NITROGLYCERIN (Verified Allergy, Severe, 11/07/10) KETOROLAC (Unverified Allergy, Intermediate, 03/14/14) FISH CONTAINING PRODUCTS (Verified Allergy, Mild, 07/20/14) per patient, "it knocks me out" ACETAMINOPHEN (Unverified Allergy, Unknown, 07/19/14) CODEINE (Unverified Allergy, Unknown, 11/03/13) UNKNOWN DIPHENHYDRAMINE (Unverified Allergy, Unknown, 09/30/14) IBUPROFEN (Unverified Allergy, Unknown, 11/03/13) UNKNOWN PROCHLORPERAZINE (Unverified Allergy, Unknown, 07/19/14) GABAPENTIN (Verified Adverse Reaction, Intermediate, 07/20/14) Per patient, it makes him sweat, throws up, and "blacks out" ROS Limited/Unobtainable: No Constitutional: Reports: no symptoms HEENT: Reports: no symptoms Cardiovascular: Reports: no symptoms Respiratory: Reports: no symptoms Gastrointestinal/Abdominal: Reports: no symptoms Genitourinary: Reports: no symptoms Neurologic/Psychiatric: Reports: no symptoms Subjective 73 YO M admitted with gen weakness. Now sepsis. Cover for Int Med-DR Marcial. Patient refused WBC scan Objective Last Vital Signs Date Time Temp Pulse Resp B/P (MAP) Pulse Ox O2 Delivery O2 Flow Rate FiO2 11/02/18 09:00 Room Air 11/02/18 08:11 75 18 95 21 11/02/18 08:00 98.6 114/62 (79) 10/31/18 07:00 2.0 Laboratory Tests Test 11/02/18 06:00 White Blood Count 14.3 K/UL (4.8-10.8) H Red Blood Count 3.58 M/UL (4.70-6.10) L Hemoglobin 11.0 G/DL (14.2-18.0) L Hematocrit 33.2 % (42.0-52.0) L Mean Corpuscular Volume 93 FL (80-99) Mean Corpuscular Hemoglobin 30.7 PG (27.0-31.0) Mean Corpuscular Hemoglobin Concent 33.0 G/DL (32.0-36.0) Red Cell Distribution Width 12.6 % (11.6-14.8) Platelet Count 177 K/UL (150-450) Mean Platelet Volume 7.3 FL (6.5-10.1) Neutrophils (%) (Auto) % (45.0-75.0) Lymphocytes (%) (Auto) % (20.0-45.0) Monocytes (%) (Auto) % (1.0-10.0) Eosinophils (%) (Auto) % (0.0-3.0) Basophils (%) (Auto) % (0.0-2.0) Differential Total Cells Counted 100 Neutrophils % (Manual) 76 % (45-75) H Lymphocytes % (Manual) 14 % (20-45) L Monocytes % (Manual) 10 % (1-10) Eosinophils % (Manual) 0 % (0-3) Basophils % (Manual) 0 % (0-2) Band Neutrophils 0 % (0-8) Platelet Estimate Adequate Platelet Morphology Normal Hypochromasia 1+ Erythrocyte Sedimentation Rate 79 MM/HR (0-20) H Sodium Level 140 MMOL/L (136-145) Potassium Level 3.7 MMOL/L (3.5-5.1) Chloride Level 108 MMOL/L (98-107) H Carbon Dioxide Level 26 MMOL/L (21-32) Anion Gap 6 mmol/L (5-15) Blood Urea Nitrogen 13 mg/dL (7-18) Creatinine 1.1 MG/DL (0.55-1.30) Estimat Glomerular Filtration Rate mL/min (>60) Glucose Level 129 MG/DL (74-106) H Calcium Level 8.6 MG/DL (8.5-10.1) Phosphorus Level 2.3 MG/DL (2.5-4.9) L Magnesium Level 2.0 MG/DL (1.8-2.4) Total Bilirubin 0.8 MG/DL (0.2-1.0) Aspartate Amino Transf (AST/SGOT) 29 U/L (15-37) Alanine Aminotransferase (ALT/SGPT) 23 U/L (12-78) Alkaline Phosphatase 75 U/L (46-116) C-Reactive Protein, Quantitative 25.0 mg/dL (0.00-0.90) H Pro-B-Type Natriuretic Peptide 1065 pg/mL (0-125) H Total Protein 6.0 G/DL (6.4-8.2) L Albumin 2.1 G/DL (3.4-5.0) L Globulin 3.9 g/dL Albumin/Globulin Ratio 0.5 (1.0-2.7) L Intake and Output 11/01/18 11/02/18 19:00 07:00 Intake Total 300 ml 240 ml Output Total 1200 ml 400 ml Balance -900 ml -160 ml Intake Oral 300 ml 240 ml Output Urine Total 1200 ml 400 ml # Voids 3 # Bowel Movements 2 Objective Objective General: No acute distress, awake and alert HEENT: NCAT, sclera anicteric, PERRL, EOMI. Neck: Supple, no significant jugular venous distention, Lungs: Good inspiratory effort, decrease air at bases,, no Wheeze or Rales. Heart: Regular rate and rhythm, normal S1/S2, no murmurs Abdomen: soft, nontender, nondistended. Normoactive bowel sounds, obesity, Right hip pain. / Rectal: Refused and deferred. Extremities: No Cyanosis , clubbing or edema. Neuro: A&O x 3, Able to move all extremities Skin: warm, no rashes or lesions Psych: Normal mood and affect Assessment/Plan Assessment/Plan Assessment/Plan Assessment/Plan 1. Sepsis - r/o endocarditis, aortic graft infection -10/27 BCx / GPC --> STREP AGALACTIAE GROUP B 2. Urinary tract infection with lactic acidosis. 3. Right hip pain. 4. Coronary artery disease. 5. 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 6. Hypertension. 7. History of cervical disk disease with myelopathy. 8. Aortic valve replacement. 9. Descending aortic aneurysm repair. 10.Thrombocytopenia. PLAN: Monitor labs and cultures. Abx: Ceftriaxone resume lower dose Eliquis due to thrombocytopenia Code status is Full Code. DVT prophylaxis: SCD OOB to chair, PT mobility. Patient refused WBC scan to R/O aortic graft infection Tate Cedeno MD Nov 02, 2018 11:34
[2018-11-02 12:00] VITALS: BP 119/64
[2018-11-02] MEDS: cefTRIAXone 2 GM in D5W 55 ML IVPB SCH (12:27)
--- NOTE | 2018-11-02 15:15 | NUR ---
CASE MANAGEMENT:REVIEW 11/02/18 SI: SEPSIS D/T BACTEREMIA. PAFIB S/P AORTIC VALVE REPLACEMENT.....R/O ENDOCARDITIS 96.9 67 18 119/64 94% ON RA WBC+14.3 IS: IV ROCEPHIN Q24 NORVASC PO QD DEPAKOTE PO Q12 ELIQUIS PO BID ATENOLOL PO BID : TELEMETRY STATUS DCP: FROM HOME PLAN: REFUSED BENJAMIN
[2018-11-02 16:00] VITALS: BP 119/64
--- NOTE | 2018-11-02 17:24 | Infectious Diseases Prog Note ---
Assessment/Plan Assessment/Plan Assessment: Sepsis 2ry to Gram positive bacteremia (?source)- r/o endocarditis, aortic graft infection -10/31 wbc scan:Note that due to claustrophobia, patient would not introduce any body parts above is displaced into the scanner, so only images of the lowerextremities and pelvis are provided. Very limited exam, with no body parts above the upper pelvis imaged. Abnormal circumferential superficial activity involving the L distal thigh and knee.This raises concern for soft tissue cellulitis. Conceivably, this could also represent septic arthritis of the knee but activity is much more peripheral than is likely for this entity. Correlation with clinical findings is recommended Apparent prominent upper pelvic activity seen in the upper imaging volume particularly on the posterior views. Significance of this is uncertain -10/27 BCx 2/2 GBS; 10/28 Bcx NTD -CXR: Borderline cardiomegaly.Thoracic endograft again demonstrated. No definite acute process -CTA c/abd/p w/wo: Somewhat limited exam due to lack of inclusion of the pelvis within the imaging volume. Postsurgical changes, status post surgical repair of the ascending thoracic aorta, status post stent graft repair of descending thoracic aorta. No evidence of leakage for rupture. No acute abnormality. Dilated main and left main pulmonary artery, consistent with pulmonary arterial hypertension. Mild hazy pulmonary opacity and centrilobular interstitial septal thickening in the upper lobes, could indicate mild pulmonary edema. Fatty liver. Incidental findings as noted, including hepatic capsular calcifications, left renal cysts, probable small right renal cysts -2d Echo: no vegetations -u/a no pyuria, nit +, leuk +1 Fever; improving Leukocytosis; persistent R Hip/back pain -L spine xray: No acute process. Mild degenerative changes -MRI hip: Mild degenerative changes of the right hip. No acute or significant osseous or joint abnormality otherwise. Incidental findings of small fat- containing right hernia and colonic diverticulosis pAfib s/p ablation 06/2017 HTN obesity R MCA thromboembolic stroke s/p laminectomy L TKR s/p revision and screw removal 06/2018 HTN s/p bioprosthetic AVR pain/somatization disorder aortic aneurysm s/p repair 2014, GERD drug-seeking behavior insomnia gout OA anxiety Plan: - Continue Ceftriaxone #5 (abx d #7) for GBS bacteremia - 10/29/18 SP Daptomycin #1 - 10/28/18 SP Vancomycin #2, Cefepime #2 -f/u cx -Monitor CBC/CMP, temperatures -Recommended BENJAMIN to eavl for endocarditis; patietn refused -f/u Bcx x2 Thank you for this consultation. Will continue to follow along with you. Subjective Allergies: Coded Allergies: MORPHINE (Verified Allergy, Severe, 11/07/10) NITROGLYCERIN (Verified Allergy, Severe, 11/07/10) KETOROLAC (Unverified Allergy, Intermediate, 03/14/14) FISH CONTAINING PRODUCTS (Verified Allergy, Mild, 07/20/14) per patient, "it knocks me out" ACETAMINOPHEN (Unverified Allergy, Unknown, 07/19/14) CODEINE (Unverified Allergy, Unknown, 11/03/13) UNKNOWN DIPHENHYDRAMINE (Unverified Allergy, Unknown, 09/30/14) IBUPROFEN (Unverified Allergy, Unknown, 11/03/13) UNKNOWN PROCHLORPERAZINE (Unverified Allergy, Unknown, 07/19/14) GABAPENTIN (Verified Adverse Reaction, Intermediate, 07/20/14) Per patient, it makes him sweat, throws up, and "blacks out" Subjective afebrile in >48hrs leukocytosis persistent repeat Bcx NTD Objective Vital Signs Last 24 Hour Vital Signs Date Time Temp Pulse Resp B/P (MAP) Pulse Ox O2 Delivery O2 Flow Rate FiO2 11/02/18 16:00 97.4 65 18 119/64 (82) 93 11/02/18 12:00 75 11/02/18 12:00 96.9 67 18 119/64 (82) 94 11/02/18 09:00 Room Air 11/02/18 09:00 75 114/62 11/02/18 09:00 75 114/62 11/02/18 08:11 75 18 95 Room Air 21 11/02/18 08:00 64 11/02/18 08:00 98.6 76 18 114/62 (79) 93 11/02/18 03:44 79 11/01/18 23:33 76 11/01/18 21:47 71 16 95 Room Air 21 11/01/18 21:00 Room Air 11/01/18 20:00 98.8 74 18 109/62 (78) 96 11/01/18 19:16 78 Height (Feet): 6 Height (Inches): 1.00 Weight (Pounds): 281 Laboratory Tests Test 11/02/18 06:00 White Blood Count 14.3 K/UL (4.8-10.8) H Red Blood Count 3.58 M/UL (4.70-6.10) L Hemoglobin 11.0 G/DL (14.2-18.0) L Hematocrit 33.2 % (42.0-52.0) L Mean Corpuscular Volume 93 FL (80-99) Mean Corpuscular Hemoglobin 30.7 PG (27.0-31.0) Mean Corpuscular Hemoglobin Concent 33.0 G/DL (32.0-36.0) Red Cell Distribution Width 12.6 % (11.6-14.8) Platelet Count 177 K/UL (150-450) Mean Platelet Volume 7.3 FL (6.5-10.1) Neutrophils (%) (Auto) % (45.0-75.0) Lymphocytes (%) (Auto) % (20.0-45.0) Monocytes (%) (Auto) % (1.0-10.0) Eosinophils (%) (Auto) % (0.0-3.0) Basophils (%) (Auto) % (0.0-2.0) Differential Total Cells Counted 100 Neutrophils % (Manual) 76 % (45-75) H Lymphocytes % (Manual) 14 % (20-45) L Monocytes % (Manual) 10 % (1-10) Eosinophils % (Manual) 0 % (0-3) Basophils % (Manual) 0 % (0-2) Band Neutrophils 0 % (0-8) Platelet Estimate Adequate Platelet Morphology Normal Hypochromasia 1+ Erythrocyte Sedimentation Rate 79 MM/HR (0-20) H Sodium Level 140 MMOL/L (136-145) Potassium Level 3.7 MMOL/L (3.5-5.1) Chloride Level 108 MMOL/L (98-107) H Carbon Dioxide Level 26 MMOL/L (21-32) Anion Gap 6 mmol/L (5-15) Blood Urea Nitrogen 13 mg/dL (7-18) Creatinine 1.1 MG/DL (0.55-1.30) Estimat Glomerular Filtration Rate mL/min (>60) Glucose Level 129 MG/DL (74-106) H Calcium Level 8.6 MG/DL (8.5-10.1) Phosphorus Level 2.3 MG/DL (2.5-4.9) L Magnesium Level 2.0 MG/DL (1.8-2.4) Total Bilirubin 0.8 MG/DL (0.2-1.0) Aspartate Amino Transf (AST/SGOT) 29 U/L (15-37) Alanine Aminotransferase (ALT/SGPT) 23 U/L (12-78) Alkaline Phosphatase 75 U/L (46-116) C-Reactive Protein, Quantitative 25.0 mg/dL (0.00-0.90) H Pro-B-Type Natriuretic Peptide 1065 pg/mL (0-125) H Total Protein 6.0 G/DL (6.4-8.2) L Albumin 2.1 G/DL (3.4-5.0) L Globulin 3.9 g/dL Albumin/Globulin Ratio 0.5 (1.0-2.7) L Current Medications Medications (Trade) Dose Ordered Sig/Sheba Route PRN Reason Start Time Stop Time Status Last Admin Dose Admin Albuterol/ Ipratropium (Albuterol/ Ipratropium) 3 ml Q4H PRN HHN Shortness of Breath 10/30/18 15:00 11/04/18 14:59 10/31/18 23:52 Amlodipine Besylate (Norvasc) 10 mg DAILY ORAL 10/31/18 09:00 11/27/18 08:59 10/31/18 09:08 Apixaban (Eliquis) 2.5 mg BID ORAL 10/30/18 18:00 11/29/18 17:59 11/02/18 17:07 Atenolol (Tenormin) 50 mg BID ORAL 10/30/18 18:00 11/26/18 17:59 11/01/18 17:05 Ceftriaxone Sodium 2 gm/ Dextrose 55 ml @ 110 mls/hr Q24H IVPB 10/31/18 13:00 11/05/18 12:59 11/02/18 12:27 Divalproex Sodium (Depakote) 500 mg Q12HR ORAL 10/30/18 21:00 11/26/18 20:59 11/02/18 09:08 Enalaprilat (Vasotec) 2.5 mg Q6H PRN IV sbp more than 160 10/30/18 15:30 11/26/18 15:29 Hydromorphone HCl (Dilaudid) 0.5 mg Q3H PRN IVP MODERATE PAIN 10/30/18 15:00 11/04/18 14:59 11/02/18 17:07 Hydromorphone HCl (Dilaudid) 1 mg Q3H PRN IVP SEVERE PAIN 10/30/18 18:15 11/04/18 09:02 11/02/18 13:03 Ondansetron HCl (Zofran) 4 mg Q6H PRN IVP Nausea & Vomiting 10/30/18 15:30 11/26/18 15:29 Polyethylene Glycol (Miralax) 17 gm DAILYPRN PRN ORAL Constipation 10/30/18 15:30 11/29/18 15:29 Temazepam (Restoril) 15 mg HSPRN PRN ORAL Insomnia 10/30/18 16:00 11/06/18 15:59 Bree Steel M.D. Nov 02, 2018 17:24
--- NOTE | 2018-11-02 19:26 | NUR ---
HAND-OFF: Report given to KRYSTIAN Mendoza. Patient in stable condition.
--- NOTE | 2018-11-02 19:30 | NUR ---
NURSE NOTES: Received report from KRYSTIAN Schuster. Patient in bed awake, in low fowlers position showing no signs of acute distress. Respiration even and non labored on room air. No Sob noted. AOx4. IV noted on right AC 22g SL patent and intact. Call light within reach. Bed in lowest position, wheels locked and alarm on. All needs attended and met. Will continue plan of care.
[2018-11-02 20:00] VITALS: BP 121/76
--- NOTE | 2018-11-02 20:08 | Cardiology Progress Note ---
Assessment/Plan Problem List: (1) Paroxysmal atrial fibrillation Assessment & Plan: s/p ablation. He had SR w/ PACs on adm. 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 gu source. r/o endocarditis (6) S/P aortic valve replacement Status: stable, unchanged Status Narrative Mr. Lujan is afebrile. WBC remains elevated He has group b strep UTI and bacteremia- r/o aortic graft or prosthetic valve infection, endocarditis. Indium scan w/ inc pelvic and L hip activity . incomplete imaging due to pt factors PAF - s/p ablation - maintaining NSR on telemetry s/p AVR, ascending aortic graft for dissection hx of cVA hx of chronic chest pain, felt to be noncardiac, possibly neuropathic Assessment/Plan Mr Lujan has gp b strep bacteremia and UTI He is on iv antibiotics per ID. Indium scan performed - without definite focus of infection identified Pt refuses BENJAMIN - Continue anticoagulation for PAF. Rhythm stable on telemetry He has CP whilch is likely noncardiac - has had negative ischemia w/u recently. Subjective ROS Limited/Unobtainable: No Subjective Cardiology/ EP Mr. Lujan c/o chest pain and R hip pain Objective Last 24 Hour Vital Signs Date Time Temp Pulse Resp B/P (MAP) Pulse Ox O2 Delivery O2 Flow Rate FiO2 11/02/18 19:57 78 18 96 Room Air 21 11/02/18 18:00 81 119/64 11/02/18 16:00 81 11/02/18 16:00 97.4 65 18 119/64 (82) 93 11/02/18 12:00 75 11/02/18 12:00 96.9 67 18 119/64 (82) 94 11/02/18 09:00 Room Air 11/02/18 09:00 75 114/62 11/02/18 09:00 75 114/62 11/02/18 08:11 75 18 95 Room Air 21 11/02/18 08:00 64 11/02/18 08:00 98.6 76 18 114/62 (79) 93 11/02/18 03:44 79 11/01/18 23:33 76 11/01/18 21:47 71 16 95 Room Air 21 11/01/18 21:00 Room Air General Appearance: WD/WN, alert EENT: PERRL/EOMI Neck: non-tender, supple, no JVD Rhythm: NSR Cardiovascular: normal rate, regular rhythm, systolic murmur Respiratory/Chest: lungs clear - clear anteriorly Abdomen: normal bowel sounds, non tender, soft Extremities: no swelling Intake and Output 11/01/18 11/02/18 19:00 07:00 Intake Total 300 ml 240 ml Output Total 1200 ml 400 ml Balance -900 ml -160 ml Intake Oral 300 ml 240 ml Output Urine Total 1200 ml 400 ml # Voids 3 # Bowel Movements 2 Laboratory Tests Test 11/02/18 06:00 White Blood Count 14.3 K/UL (4.8-10.8) H Red Blood Count 3.58 M/UL (4.70-6.10) L Hemoglobin 11.0 G/DL (14.2-18.0) L Hematocrit 33.2 % (42.0-52.0) L Mean Corpuscular Volume 93 FL (80-99) Mean Corpuscular Hemoglobin 30.7 PG (27.0-31.0) Mean Corpuscular Hemoglobin Concent 33.0 G/DL (32.0-36.0) Red Cell Distribution Width 12.6 % (11.6-14.8) Platelet Count 177 K/UL (150-450) Mean Platelet Volume 7.3 FL (6.5-10.1) Neutrophils (%) (Auto) % (45.0-75.0) Lymphocytes (%) (Auto) % (20.0-45.0) Monocytes (%) (Auto) % (1.0-10.0) Eosinophils (%) (Auto) % (0.0-3.0) Basophils (%) (Auto) % (0.0-2.0) Differential Total Cells Counted 100 Neutrophils % (Manual) 76 % (45-75) H Lymphocytes % (Manual) 14 % (20-45) L Monocytes % (Manual) 10 % (1-10) Eosinophils % (Manual) 0 % (0-3) Basophils % (Manual) 0 % (0-2) Band Neutrophils 0 % (0-8) Platelet Estimate Adequate Platelet Morphology Normal Hypochromasia 1+ Erythrocyte Sedimentation Rate 79 MM/HR (0-20) H Sodium Level 140 MMOL/L (136-145) Potassium Level 3.7 MMOL/L (3.5-5.1) Chloride Level 108 MMOL/L (98-107) H Carbon Dioxide Level 26 MMOL/L (21-32) Anion Gap 6 mmol/L (5-15) Blood Urea Nitrogen 13 mg/dL (7-18) Creatinine 1.1 MG/DL (0.55-1.30) Estimat Glomerular Filtration Rate mL/min (>60) Glucose Level 129 MG/DL (74-106) H Calcium Level 8.6 MG/DL (8.5-10.1) Phosphorus Level 2.3 MG/DL (2.5-4.9) L Magnesium Level 2.0 MG/DL (1.8-2.4) Total Bilirubin 0.8 MG/DL (0.2-1.0) Aspartate Amino Transf (AST/SGOT) 29 U/L (15-37) Alanine Aminotransferase (ALT/SGPT) 23 U/L (12-78) Alkaline Phosphatase 75 U/L (46-116) C-Reactive Protein, Quantitative 25.0 mg/dL (0.00-0.90) H Pro-B-Type Natriuretic Peptide 1065 pg/mL (0-125) H Total Protein 6.0 G/DL (6.4-8.2) L Albumin 2.1 G/DL (3.4-5.0) L Globulin 3.9 g/dL Albumin/Globulin Ratio 0.5 (1.0-2.7) Karyna Mejía MD Nov 02, 2018 20:08
[2018-11-03] VITALS: BP 141/78
[2018-11-03] MEDS: Hydromorphone 0.5mg/0.5ml inj IVP PRN ×2 (01:05→06:59)
[2018-11-03 04:00] VITALS: BP 119/59
--- NOTE | 2018-11-03 07:26 | NUR ---
HAND-OFF: Report given to KRYSTIAN Nagel.
--- NOTE | 2018-11-03 07:34 | NUR ---
NURSE NOTES: Received report from Paris Chavez. Pt is laying in bed complaining of pain in his knee. Pts pain medication is not due at the time. Explained to pt. Pt verbalized understanding. Bed is in lowest position, side rails up x2, and call light is within reach. Will continue to monitor.
[2018-11-03 08:00] VITALS: BP 120/70
[2018-11-03] MEDS: Depakote 500mg tab ORAL SCH (08:55)
[2018-11-03] MEDS: Eliquis 2.5mg tablet ORAL SCH (08:57)
[2018-11-03 09:41] LABS: BASOPHILS % (AUTO) 1.5 % (0.0-2.0); EOSINOPHILS % (AUTO) 0.3 % (0.0-3.0); HEMATOCRIT 31.6 % (42.0-52.0); HEMOGLOBIN 10.5 G/DL (14.2-18.0); LYMPHOCYTES % (AUTO) 8.6 % (20.0-45.0); MEAN CORPUSCULAR VOLUME 93 FL (80-99); MONOCYTES % (AUTO) 11.6 % (1.0-10.0); NEUTROPHILS % (AUTO) 78.1 % (45.0-75.0); PLATELET COUNT 185 K/UL (150-450); RED BLOOD COUNT 3.41 M/UL (4.70-6.10); RED CELL DISTRIBUTION WIDTH 12.8 % (11.6-14.8); WHITE BLOOD COUNT 13.6 K/UL (4.8-10.8)
[2018-11-03 09:44] LABS: ALANINE AMINOTRANSFERASE 20 U/L (12-78); ALBUMIN 1.9 G/DL (3.4-5.0); ALBUMIN/GLOBULIN RATIO 0.5 (1.0-2.7); ALKALINE PHOSPHATASE 72 U/L (46-116); ANION GAP 8 mmol/L (5-15); ASPARTATE AMINO TRANSFERASE 32 U/L (15-37); BILIRUBIN,TOTAL 0.8 MG/DL (0.2-1.0); BLOOD UREA NITROGEN 9 mg/dL (7-18); CALCIUM 8.4 MG/DL (8.5-10.1); CARBON DIOXIDE 26 MMOL/L (21-32); CHLORIDE 106 MMOL/L (98-107); PHOSPHORUS 2.4 MG/DL (2.5-4.9); POTASSIUM 3.9 MMOL/L (3.5-5.1); SODIUM 140 MMOL/L (136-145)
[2018-11-03] MEDS: HYDROmorphone 1mg/ml Carpuject IVP PRN (09:48)
--- NOTE | 2018-11-03 10:51 | Pulmonology Progress Note ---
Assessment/Plan Problems: (1) Bacteremia (2) Acute coronary syndrome (3) HTN (hypertension) (4) CAD (coronary artery disease) (5) Aortic valve disorder (6) H/O aortic valve replacement (7) Thalamic pain syndrome Assessment/Plan wbc still high pt refused BENJAMIN monitor BP continue abx for bacteremia, f/u cardio and ID recommendations needs six weeks of antibiotics symptomatic treatment Subjective ROS Limited/Unobtainable: No Constitutional: Reports: no symptoms HEENT: Repors: no symptoms Respiratory: Reports: no symptoms Allergies: Coded Allergies: MORPHINE (Verified Allergy, Severe, 11/07/10) NITROGLYCERIN (Verified Allergy, Severe, 11/07/10) KETOROLAC (Unverified Allergy, Intermediate, 03/14/14) FISH CONTAINING PRODUCTS (Verified Allergy, Mild, 07/20/14) per patient, "it knocks me out" ACETAMINOPHEN (Unverified Allergy, Unknown, 07/19/14) CODEINE (Unverified Allergy, Unknown, 11/03/13) UNKNOWN DIPHENHYDRAMINE (Unverified Allergy, Unknown, 09/30/14) IBUPROFEN (Unverified Allergy, Unknown, 11/03/13) UNKNOWN PROCHLORPERAZINE (Unverified Allergy, Unknown, 07/19/14) GABAPENTIN (Verified Adverse Reaction, Intermediate, 07/20/14) Per patient, it makes him sweat, throws up, and "blacks out" Objective Last 24 Hour Vital Signs Date Time Temp Pulse Resp B/P (MAP) Pulse Ox O2 Delivery O2 Flow Rate FiO2 11/03/18 09:00 Room Air 11/03/18 08:56 83 120/70 11/03/18 08:55 83 120/70 11/03/18 08:04 104 18 94 Room Air 21 11/03/18 08:00 98.6 83 22 120/70 (87) 97 11/03/18 04:00 97.5 80 19 119/59 (79) 94 11/03/18 04:00 82 11/03/18 00:00 97.0 99 20 141/78 (99) 97 11/03/18 00:00 79 11/02/18 21:00 Room Air 11/02/18 20:00 98.1 91 20 121/76 (91) 96 11/02/18 20:00 86 11/02/18 19:57 78 18 96 Room Air 21 11/02/18 18:00 81 119/64 11/02/18 16:00 81 11/02/18 16:00 97.4 65 18 119/64 (82) 93 11/02/18 12:00 75 11/02/18 12:00 96.9 67 18 119/64 (82) 94 Intake and Output 11/02/18 11/03/18 18:59 06:59 Intake Total 280 ml Output Total 900 ml Balance 280 ml -900 ml Intake Oral 280 ml Output Urine Total 900 ml # Voids 4 General Appearance: WD/WN HEENT: normocephalic, atraumatic Respiratory/Chest: chest wall non-tender, lungs clear, chest wall tender Cardiovascular: normal peripheral pulses, normal rate Abdomen: normal bowel sounds, soft, non tender Genitourinary: normal external genitalia 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, normal mood/affect Laboratory Tests 11/03/18 09:15: White Blood Count 13.6H, Red Blood Count 3.41L, Hemoglobin 10.5L, Hematocrit 31.6L, Mean Corpuscular Volume 93, Mean Corpuscular Hemoglobin 30.8, Mean Corpuscular Hemoglobin Concent 33.2, Red Cell Distribution Width 12.8, Platelet Count 185, Mean Platelet Volume 6.0L, Neutrophils (%) (Auto) 78.1H, Lymphocytes (%) (Auto) 8.6L, Monocytes (%) (Auto) 11.6H, Eosinophils (%) (Auto) 0.3, Basophils (%) (Auto) 1.5, Sodium Level 140, Potassium Level 3.9, Chloride Level 106, Carbon Dioxide Level 26, Anion Gap 8, Blood Urea Nitrogen 9, Creatinine 1.0 , Estimat Glomerular Filtration Rate , Glucose Level 170H, Calcium Level 8.4L, Phosphorus Level 2.4L, Magnesium Level 1.6L, Total Bilirubin 0.8, Aspartate Amino Transf (AST/SGOT) 32, Alanine Aminotransferase (ALT/SGPT) 20, Alkaline Phosphatase 72, Total Protein 5.8L, Albumin 1.9L, Globulin 3.9, Albumin/ Globulin Ratio 0.5L Current Medications Medications (Trade) Dose Ordered Sig/Sheba Route PRN Reason Start Time Stop Time Status Last Admin Dose Admin Albuterol/ Ipratropium (Albuterol/ Ipratropium) 3 ml Q4H PRN HHN Shortness of Breath 10/30/18 15:00 11/04/18 14:59 10/31/18 23:52 Amlodipine Besylate (Norvasc) 10 mg DAILY ORAL 10/31/18 09:00 11/27/18 08:59 11/03/18 08:55 Apixaban (Eliquis) 2.5 mg BID ORAL 10/30/18 18:00 11/29/18 17:59 11/03/18 08:57 Atenolol (Tenormin) 50 mg BID ORAL 10/30/18 18:00 11/26/18 17:59 11/03/18 08:56 Ceftriaxone Sodium 2 gm/ Dextrose 55 ml @ 110 mls/hr Q24H IVPB 10/31/18 13:00 11/05/18 12:59 11/02/18 12:27 Divalproex Sodium (Depakote) 500 mg Q12HR ORAL 10/30/18 21:00 11/26/18 20:59 11/03/18 08:55 Enalaprilat (Vasotec) 2.5 mg Q6H PRN IV sbp more than 160 10/30/18 15:30 11/26/18 15:29 Hydromorphone HCl (Dilaudid) 0.5 mg Q3H PRN IVP MODERATE PAIN 10/30/18 15:00 11/04/18 14:59 11/03/18 06:59 Hydromorphone HCl (Dilaudid) 1 mg Q3H PRN IVP SEVERE PAIN 10/30/18 18:15 11/04/18 09:02 11/03/18 09:48 Ondansetron HCl (Zofran) 4 mg Q6H PRN IVP Nausea & Vomiting 10/30/18 15:30 11/26/18 15:29 Polyethylene Glycol (Miralax) 17 gm DAILYPRN PRN ORAL Constipation 10/30/18 15:30 11/29/18 15:29 Temazepam (Restoril) 15 mg HSPRN PRN ORAL Insomnia 10/30/18 16:00 11/06/18 15:59 Melinda Rutledge MD Nov 03, 2018 10:51
[2018-11-03] MEDS ORDERED: CEFTRIAXON2 GM/50 ML IV (10:57)
[2018-11-03] MEDS ORDERED: HYDROmorphone 4mg tab ORAL PRN (11:00)
--- NOTE | 2018-11-03 11:07 | Diagnostic Imaging Report ---
Indication: Knee infection Technique: 3 views of the left knee Comparison: 08/22/2014 Findings: There is suggestion of a joint effusion. Lateral sideplate and screws are again demonstrated, distal screws having been removed, more proximal screws demonstrating similar position. Previously demonstrated lateral hemiarthroplasty prosthesis has been removed and replaced with a total knee arthroplasty prosthesis. The hardware appears well aligned and there is no worrisome periprosthetic or pericement lucency. No hardware fracture demonstrated No acute bony fractures. Impression: No evidence of joint effusion Postsurgical changes as described. No evidence of osseous or hardware fracture
[2018-11-03 12:00] VITALS: BP 141/78
[2018-11-03] MEDS ORDERED: HYDROmorphone 1mg/ml Carpuject IVP PRN (12:15)
--- NOTE | 2018-11-03 13:26 | NUR ---
NURSE NOTES: Patient was discharged per MD orders. Heart monitor was removed and returned to [place]. IV was removed. No redness or swelling noted. Belongings accounted for. Signed Belongings list is in chart. Pt stable at time of discharge
--- NOTE | 2018-11-04 10:05 | Discharge Summary ---
Discharge Summary Discharge Summary _ DATE OF ADMISSION: 10/27/2018 DATE OF DISCHARGE: 11/03/2018 DISCHARGED BY: Dr. Marcial REASON FOR ADMISSION: 73 years old male with extensive past medical history , including CVA, open heart surgery, repair of aortic aneurysm, aortic valve replacement, laminectomy , left knee replacement, presented to emergency department, complaining of episode of chest pain and right hip pain. Upon evaluation patient had low-grade fever , otherwise vital signs were stable. Laboratory work-up revealed mild leukocytosis 11.8 , stable hemoglobin and hematocrit. Platelet count 110. Sodium 134, potassium 3.8. BUN 20 creatinine 1.5. Lactic acid 2.5. Glucose 160. Total bilirubin 3.7, direct bilirubin 0.8. AST 64, ALT 71. Lipase 63 Troponin 0.151. CK 363. Pro BNP 1197. EKG revealed multifocal atrial tachycardia with left axis deviation. Urinalysis revealed +2 protein, +4 blood, + leukocyte esterase and mild pyuria. Chest x-ray revealed no acute cardiopulmonary pathology. CTA of the chest revealed no acute abnormality. Dilated main and left main pulmonary artery, consistent with pulmonary arterial hypertension. Mild hazy pulmonary opacity and central lobular interstitial septal thickening in the upper lobes , could indicate mild pulmonary edema. Fatty liver. In emergency department, patient started on fluid resuscitation , pancultured, started on empiric antibiotic and admitted for further management. CONSULTANTS: sander and buffer Dr. Palacio pulmonary Dr. Rutledge ID specialist Dr. Steel [facility] COURSE: Patient admitted to [facility]. Serial troponin revealed mild elevation . Last troponin negative. EKG revealed multifocal atrial tachycardia with left axis deviation. Repeated ECG showed sinus rhythm with premature supraventricular complexes and left anterior fascicular block. Echocardiogram demonstrated preserved ejection fraction of 60% with no evidence of wall motion abnormality and mild left ventricular hypertrophy. Right ventricular systolic pressure of 36, consistent with mild pulmonary hypertension. 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 Chest pain was likely noncardiac , given negative negative ischemia work-up recently. Patient was on anticoagulation for paroxysmal atrial fibrillation. Beta blockage provided for heart rate control. Troponin levels were flat and trending down, last one was negative. Per cardiology, chest pain was atypical. Blood pressure was managed with calcium channel fanny and beta-fanny. Supplemental oxygen provided as needed to keep pulse oximetry above 92%. Bronchodilator treatment provided as needed. Initial blood culture revealed Strep group B. Infectious disease specialist followed. Unclear source of gram-positive bacteremia , possible aortic graft infection versus endocarditis. Echocardiogram revealed no evidence of vegetation . Patient refused BENJAMIN. Repeated blood culture were negative. Chest x-ray revealed thoracic endograft no definite acute process. Antibiotics provided as per ID specialist recommendation. WBC scan was ordered, but was very limited , since with no body part above the upper pelvis was imaged, due to patient's claustrophobia. Abnormal circumferential superficial activity involving the left distal thigh and knee with concern for soft tissue cellulitis. Conceivably, this could also represent septic arthritis of the knee, but activity was much more peripheral . Apparent prominent upper pelvic activity seen in the upper imaging volume particularly on the posterior views. Significance of this was uncertain. Fevers initially present , resolved. Patient continue to have leukocytosis. Per ID specialist recommendation, patient will need to complete total of 6 weeks of antibiotic therpay due to bacteremia Strep Group B, since he declined BENJAMIN, and endocarditis could not be ruled out. MRI of the right hip was done due to extensive pain and revealed mild degenerative changes , but no acute or significant osseous or joint abnormality otherwise. X-ray of the left knee revealed no evidence of joint effusion. No evidence of ulcers or hardware fracture. Renal parameters and electrolytes were closely monitored. Electrolytes corrected as needed, and nephrotoxins were avoided. Creatinine from 1.5 on admission down to 1.0. Acute kidney injury resolved, Pain management was addressed. Anticoagulation with Eliquis, which initially stopped due to thrombocytopenia, restarted. Thrombocytopenia resolved. Prior to discharge platelet count 185. Bowel regimen instituted. Supportive care provided. Home health services were arranged prior to discharge. Patient was stable for discharge home with home health services for IV antibiotic to complete the course. FINAL DIAGNOSES: Sepsis with Strep group B bacteremia; r/o endocarditis, aortic graft infection Coronary artery disease Atypical chest pain Paroxysmal atrial fibrillation , status post ablation 06/2017 Hypertension Obesity History of right MCA thromboembolic stroke Status post laminectomy Left total knee replacement , status post revision and screw removal 06/2018 Hypertension Status post bioprosthetic AVR Somatization disorder Aortic aneurysm, status post repair 2014 GERD Acute kidney injury-resolved Thalamic pain syndrome Thrombocytopenia Osteoarthritis Anxiety DISCHARGE MEDICATIONS: See Medication Reconciliation list. DISCHARGE INSTRUCTIONS: Patient was discharged home with home health services. Patient will need to complete IV antibiotic therapy as outlined in medication reconciliation list for total of 6 weeks of IV antibiotic , as recommended by ID specialist Follow up with primary care provider in one week. Mable Nicole NP Nov 04, 2018 10:05
--- NOTE | 2018-11-04 11:52 | CDS Physician Query ---
Clarification is required for compliance, coding accuracy, and to reflect severity of illness for this patient Dear Dr. Cedeno Date: 11/04/18 CDS: Cedric Delgado R/O Endocarditis has been documented in Progress Notes from 10/28/18 onwards. Upon review, it is difficult to determine whether this diagnosis has been ruled in, ruled out,or is still being worked up. Please indicate below the status of the aforementioned diagnosis. Patient was admitted with Sepsis. Blood Culture on admission grew Strep Agalactiae group B. Rx: IV Ceftriaxone IV Daptomycin IV Vancomycin [ ] Treated and resolved [ ] Presumed and treated [ ] Ruled out If it was treated, please specify the acuity [ ] Acute [ ] Subacute [ ] Chronic Present on Admission: [ ] Yes [ ] No [ ] Clinically Undetermined Physician signature Date MTDD
== END 2018-11-03 12:45 | disposition home or self-care (01) | DRG 872 ==
LOC: EDBD 03:41 → EMR 03:55 → 2W 04:29 → EDBEDREQ 05:25 → EDBEDREQSVC 05:25 → EDBEDREQ 06:35 → 2E 10-30 15:23
DX: A40.1 Sepsis due to streptococcus, group B (principal); N17.9 Acute kidney failure, unspecified; N39.0 Urinary tract infection, site not specified; M50.00 Cervical disc disorder with myelopathy, unspecified cervical region; I25.110 Atherosclerotic heart disease of native coronary artery with unstable angina pectoris; G89.0 Central pain syndrome; Z88.6 Allergy status to analgesic agent; Z88.8 Allergy status to other drugs, medicaments and biological substances; M25.551 Pain in right hip; I25.10 Atherosclerotic heart disease of native coronary artery without angina pectoris; I34.0 Nonrheumatic mitral (valve) insufficiency; Z86.73 Personal history of transient ischemic attack (TIA), and cerebral infarction without residual deficits; Z95.2 Presence of prosthetic heart valve; I36.1 Nonrheumatic tricuspid (valve) insufficiency; Z96.652 Presence of left artificial knee joint; K76.0 Fatty (change of) liver, not elsewhere classified; I10 Essential (primary) hypertension; E66.9 Obesity, unspecified; F45.9 Somatoform disorder, unspecified; Z76.5 Malingerer [conscious simulation]; D69.6 Thrombocytopenia, unspecified; M19.90 Unspecified osteoarthritis, unspecified site; K21.9 Gastro-esophageal reflux disease without esophagitis; F41.9 Anxiety disorder, unspecified; I35.9 Nonrheumatic aortic valve disorder, unspecified
CPT/HCPCS: 36415; 71045; 71275; 72020; 74174; 78807; 80048; 80053; 80061; 80202; 81003; 82248; 82550; 82553; 83605; 83690; 83735; 83880; 84100; 84443; 84484; 85007; 85025; 85610; 85651; 85730; 86140; 86710; 87040; 87181; 93005; 93306; 94640; 94664; 96365; 96366; 96368; 96375; 99291; A9570; J2405; J7620; J8499

== ENCOUNTER → 2019-05-09 | Emergency (ER) | payer MEDICARE, MEDICAID ==
[~2019-05-09] VITALS: Ht 185.4 cm; Wt 117.0 kg
[~2019-05-09] MED LIST changes: +CEFTRIAXON2 GM/50 ML IV; +ELIQUIS5 MG PO; +HYDROcodone/Acetamin 10/325 tab ORAL ONE; +NORCO 10-325 T1 EACH ORAL; +NORCO 10/3251 EA ORAL
--- NOTE | 2019-05-09 15:32 | NUR ---
ED Nurse Note: Pt came in to ED d/t generalized body pain and feeling weak x 2 days. Pt is AOx4, cooperative. VSS, on RA, NAD. placed on bed and gown; hooked to field representative/health education.
[2019-05-09 15:35] VITALS: BP 126/83
--- NOTE | 2019-05-09 15:40 | NUR ---
ED Nurse Note: ERMD at bedside.
--- NOTE | 2019-05-09 15:55 | Emergency Room Report ---
History of Present Illness General Chief Complaint: Generalized Weakness Source: Patient Present Illness HPI 73-year-old male history of hypertension, CVA, cardiac disease, chronic pain syndrome with drug-seeking behavior presented for complaints of generalized weakness and left upper and lower extremity pain. He states he has chronic pain but worse in the past 2 days. He arrived in a electronic wheelchair. From home. He reports 10 out of 10 pain that is worse with walking. No fevers nausea or vomiting. Patient denies any shortness of breath. Dates he takes tramadol at home but it has not been effective. Patient reports allergies to morphine Toradol ibuprofen Benadryl and acetaminophen however on prescription drug review scribe [place] and tramadol. Allergies: Coded Allergies: MORPHINE (Verified Allergy, Severe, 11/07/10) NITROGLYCERIN (Verified Allergy, Severe, 11/07/10) KETOROLAC (Unverified Allergy, Intermediate, 03/14/14) FISH CONTAINING PRODUCTS (Verified Allergy, Mild, 07/20/14) per patient, "it knocks me out" ACETAMINOPHEN (Unverified Allergy, Unknown, 07/19/14) CODEINE (Unverified Allergy, Unknown, 11/03/13) UNKNOWN DIPHENHYDRAMINE (Unverified Allergy, Unknown, 09/30/14) IBUPROFEN (Unverified Allergy, Unknown, 11/03/13) UNKNOWN PROCHLORPERAZINE (Unverified Allergy, Unknown, 07/19/14) GABAPENTIN (Verified Adverse Reaction, Intermediate, 07/20/14) Per patient, it makes him sweat, throws up, and "blacks out" Patient History Reviewed Nursing Documentation: PMH: Agreed; PSxH: Agreed Nursing Documentation-PM Past Medical History: No History, Except For Hx Cardiac Problems: Yes Hx Hypertension: Yes Hx Pacemaker: No Hx Asthma: No Hx COPD: No Hx Diabetes: Yes Hx Cancer: No Hx Gastrointestinal Problems: No Hx Dialysis: No Hx Neurological Problems: No Hx Cerebrovascular Accident: Yes Hx Transient Ischemic Attacks: No Hx Dementia: No Hx Alzheimer's Disease: No Hx Parkinson's Disease: No Hx Meningitis: No Hx Encephalitis: Yes Hx Seizures: No Hx Epilepsy: No Hx Multiple Sclerosis: No Hx Cerebral Palsy: No Hx Amyotrophic Lat Sclerosis: No Hx Guillian-Montevallo Syndrome: No Hx Paralysis: No Hx Peripheral Neuropathy: No Hx Spinal Cord Injury: No Hx Head Trauma: No Hx Traumatic Brain Injury: No Hx Memory Loss: No Hx Concentration Difficulty: No Hx Speech Problem: No Hx Tremors: No Hx Vertigo: No Hx Dizziness: No Hx Syncope: No Hx Headaches: No Hx Aphasia: No Hx Dysphasia: No Hx Numbness: No Hx Weakness: No Hx Fatigue: Yes Hx Neurologic Surgery: No Hx Brain Shunt: No Review of Systems All Other Systems: negative except mentioned in HPI Physical Exam Vital Signs Date Time Temp Pulse Resp B/P (MAP) Pulse Ox O2 Delivery O2 Flow Rate FiO2 05/09/19 15:27 98.4 74 20 126/83 (97) 95 Room Air Sp02 EP Interpretation: reviewed, normal General Appearance: well appearing, no apparent distress Head: normocephalic, atraumatic Eyes: bilateral eye PERRL, bilateral eye EOMI ENT: hearing grossly normal, moist mucus membranes Neck: full range of motion, supple Respiratory: lungs clear, normal breath sounds, no rhonchi, no respiratory distress, no retraction, no wheezing Cardiovascular #1: normal peripheral pulses, regular rate, rhythm, other - Systolic ejection murmer noted Gastrointestinal: non tender, soft, non-distended, no guarding Musculoskeletal: other - Full range of motion of left lower extremity with some pain. 2+ pulses, no erythema or edema noted Neurologic: alert, oriented x3, no focal defects Skin: normal color, warm/dry Medical Decision Making Diagnostic Impression: Primary Impression: Extremity pain Additional Impression: Generalized weakness ER Course Differential diagnosis included but not limited to chronic pain syndrome, drug- seeking behavior, radiculopathy, neuropathy to name a few low suspicion for recurrent bacteremia at this time. Patient afebrile, no acute distress, stable vital signs. Patient simply requesting pain medications in the ER. Allergies which is concerning for drug-seeking behavior. He was p.o. analgesia in the ER. Laboratory studies showed no evidence of troponin elevation leukocytosis or other significant abnormalities Patient in no acute distress on exam with stable vital signs. Low suspicion for infectious process ACS or other serious etiology. I believe she is having an exacerbation of his chronic pain. patient will be discharged home with close follow-up with his PMD and return precautions. EKG Diagnostic Results EP Interpretation: Sinus rhythm, rate of 83, left anterior fascicular block PVC , nonspecific Rhythm Strip Diag. Results EP Interpretation: yes Rate: 83 Rhythm: NSR Other Impression PVCs, nonspecific EKG Chest X-Ray Diagnostic Results Chest X-Ray Diagnostic Results : Chest X-Ray Ordered: Yes # of Views/Limited/Complete: 1 View Indication: Other - Left arm pain EP Interpretation: Yes Interpretation: no consolidation, no effusion, no pneumothorax Last Vital Signs Date Time Temp Pulse Resp B/P (MAP) Pulse Ox O2 Delivery O2 Flow Rate FiO2 05/09/19 15:27 98.4 74 20 126/83 (97) 95 Room Air Status: improved Disposition: HOME, SELF-CARE Condition: Stable Scripts Hydrocodone/Acetaminophen (Hydrocodon-Acetaminophn 10-325) 1 Each Tablet 1 TAB ORAL Q12HR PRN for For Pain, #2 TAB 0 Refills Prov: Rich Peterson M.D. 05/09/19 Additional Instructions: Patient is instructed to follow-up with her primary care doctor, primary care clinic or county clinic in 1 to 2 days. Patient instructed to return for any worsening symptoms or concerns. Please note that the documentation in this note was used with [employer] technology. Pleae be advised that this may lead to erroneous text due to misinterpretation by the dictation software Rich Peterson M.D. May 09, 2019 15:55
--- NOTE | 2019-05-09 16:10 | NUR ---
ED Nurse Note: X-ray on bedside.
[2019-05-09 17:13] LABS: BASOPHILS % (AUTO) 1.1 % (0.0-2.0); HEMATOCRIT 40.2 % (42.0-52.0); HEMOGLOBIN 13.4 G/DL (14.2-18.0); LYMPHOCYTES % (AUTO) 23.5 % (20.0-45.0); MEAN CORPUSCULAR VOLUME 88 FL (80-99); MONOCYTES % (AUTO) 9.9 % (1.0-10.0); NEUTROPHILS % (AUTO) 64.5 % (45.0-75.0); PLATELET COUNT 167 K/UL (150-450); RED BLOOD COUNT 4.59 M/UL (4.70-6.10); RED CELL DISTRIBUTION WIDTH 13.8 % (11.6-14.8)
[2019-05-09 17:24] LABS: ANION GAP 14 mmol/L (5-15); BLOOD UREA NITROGEN 13 mg/dL (7-18); CALCIUM 9.1 MG/DL (8.5-10.1); CARBON DIOXIDE 23 MMOL/L (21-32); CHLORIDE 107 MMOL/L (98-107); CREATININE 1.1 MG/DL (0.55-1.30); POTASSIUM 3.7 MMOL/L (3.5-5.1); SODIUM 144 MMOL/L (136-145)
[2019-05-09 17:34] VITALS: BP 129/73
[2019-05-09 17:41] LABS: ALANINE AMINOTRANSFERASE 62 U/L (12-78); ALBUMIN 3.7 G/DL (3.4-5.0); ALBUMIN/GLOBULIN RATIO 0.9 (1.0-2.7); ALKALINE PHOSPHATASE 110 U/L (46-116); ASPARTATE AMINO TRANSFERASE 62 U/L (15-37); BILIRUBIN,DIRECT 0.2 MG/DL (0.0-0.3); BILIRUBIN,TOTAL 1.1 MG/DL (0.2-1.0)
== END | disposition home or self-care (01) ==
LOC: EMR 15:45
DX: M79.602 Pain in left arm (principal); M79.601 Pain in right arm; M79.605 Pain in left leg; M79.604 Pain in right leg; E11.9 Type 2 diabetes mellitus without complications; I11.9 Hypertensive heart disease without heart failure; Z86.73 Personal history of transient ischemic attack (TIA), and cerebral infarction without residual deficits; Z86.61 Personal history of infections of the central nervous system; Z88.5 Allergy status to narcotic agent; Z88.6 Allergy status to analgesic agent; Z88.8 Allergy status to other drugs, medicaments and biological substances; Z91.013 Allergy to seafood
CPT/HCPCS: 36415; 71045; 80053; 82248; 84484; 85025; 93005; 99283

== ENCOUNTER 2019-11-26 16:18 | Inpatient (IN) | payer MEDICARE, MEDICAID ==
[~2019-11-26] VITALS: Ht 193 cm; Wt 128.2 kg
[~2019-11-26 16:18] MED LIST changes: -HYDROcodone/Acetamin 10/325 tab ORAL ONE
[2019-11-26] MEDS ORDERED: Labetalol 5mg/ml 20ml vial IV ONE (16:30)
[2019-11-26] MEDS ORDERED: Metoclopramide 10mg/2ml Inj IVP ONE (16:30)
[2019-11-26] MEDS ORDERED: HYDROmorphone 1mg/ml Carpuject IVP ONE ×3 (16:30→22:00)
[2019-11-26 16:36] VITALS: BP 160/99
--- NOTE | 2019-11-26 16:40 | Emergency Room Report ---
History of Present Illness General Chief Complaint: Generalized Weakness Source: Patient, Medical Record Present Illness HPI The patient presents with left-sided chest pain and headache. He also is complaining about numbness and weakness on the left-hand side. This started 2 hours ago while he was driving after picking up [employer]. He states he is having difficulty standing at this time because of weakness. Patient states he has had a series of mini strokes since the last time he was at our facility. He also recently has been admitted to [facility] for ablation treatment for atrial fibrillation. He rates the pain 10/10 at this time. It is constant and pressure in his chest and also in his head. It is not radiating. He has not taken any medication for the pain. He feels anxious regarding this. He denies nausea vomiting or diarrhea. No fevers, chills, sore throat, palpitations, nausea, vomiting, diarrhea, dysuria, abdominal pain, shortness of breath, joint pain, rashes, depression, visual changes, dizziness. The patient is taking Eliquis. He is uncertain why. The patient reports that he has multiple drug allergies. The patient last admission had this discharge diagnoses: Sepsis with Strep group B bacteremia; r/o endocarditis, aortic graft infection Coronary artery disease Atypical chest pain Paroxysmal atrial fibrillation , status post ablation 06/2017 Hypertension Obesity History of right MCA thromboembolic stroke Status post laminectomy Left total knee replacement , status post revision and screw removal 06/2018 Hypertension Status post bioprosthetic AVR Somatization disorder Aortic aneurysm, status post repair 2014 GERD Acute kidney injury-resolved Thalamic pain syndrome Thrombocytopenia Osteoarthritis Anxiety Allergies: Coded Allergies: MORPHINE (Verified Allergy, Severe, 11/07/10) NITROGLYCERIN (Verified Allergy, Severe, 11/07/10) KETOROLAC (Unverified Allergy, Intermediate, 03/14/14) FISH CONTAINING PRODUCTS (Verified Allergy, Mild, 07/20/14) per patient, "it knocks me out" ACETAMINOPHEN (Unverified Allergy, Unknown, 07/19/14) CODEINE (Unverified Allergy, Unknown, 11/03/13) UNKNOWN DIPHENHYDRAMINE (Unverified Allergy, Unknown, 09/30/14) IBUPROFEN (Unverified Allergy, Unknown, 11/03/13) UNKNOWN PROCHLORPERAZINE (Unverified Allergy, Unknown, 07/19/14) GABAPENTIN (Verified Adverse Reaction, Intermediate, 07/20/14) Per patient, it makes him sweat, throws up, and "blacks out" COVID-19 Screening Contact w/high risk pt: No Experienced COVID-19 symptoms?: No COVID-19 Testing performed RAISE DRILLER: No Patient History Past Medical History: see triage record, old chart reviewed Past Surgical History: CABG, other - AV replacement, aortic aneurysm repair Social History: Denies: smoking Social History Narrative Retired Reviewed Nursing Documentation: PMH: Agreed; PSxH: Agreed Nursing Documentation-PMH Past Medical History: No History, Except For Hx Cardiac Problems: Yes Hx Hypertension: Yes Hx Pacemaker: No Hx Asthma: No Hx COPD: No Hx Diabetes: Yes Hx Cancer: No Hx Gastrointestinal Problems: No Hx Dialysis: No Hx Neurological Problems: No Hx Cerebrovascular Accident: Yes Hx Transient Ischemic Attacks: No Hx Dementia: No Hx Alzheimer's Disease: No Hx Parkinson's Disease: No Hx Meningitis: No Hx Encephalitis: Yes Hx Seizures: No Hx Epilepsy: No Hx Multiple Sclerosis: No Hx Cerebral Palsy: No Hx Amyotrophic Lat Sclerosis: No Hx Guillian-Binger Syndrome: No Hx Paralysis: No Hx Peripheral Neuropathy: No Hx Spinal Cord Injury: No Hx Head Trauma: No Hx Traumatic Brain Injury: No Hx Memory Loss: No Hx Concentration Difficulty: No Hx Speech Problem: No Hx Tremors: No Hx Vertigo: No Hx Dizziness: No Hx Syncope: No Hx Headaches: No Hx Aphasia: No Hx Dysphasia: No Hx Numbness: No Hx Weakness: No Hx Fatigue: Yes Hx Neurologic Surgery: No Hx Brain Shunt: No Review of Systems All Other Systems: negative except mentioned in HPI Physical Exam Vital Signs Date Time Temp Pulse Resp B/P (MAP) Pulse Ox O2 Delivery O2 Flow Rate FiO2 11/26/19 16:26 98.4 106 23 160/99 (119) 100 Room Air Sp02 EP Interpretation: reviewed, normal General Appearance: no apparent distress, GCS 15, non-toxic, mild distress Head: normocephalic, atraumatic Eyes: bilateral eye normal inspection, bilateral eye PERRL, bilateral eye EOMI ENT: normal pharynx, moist mucus membranes Neck: supple Respiratory: chest non-tender, lungs clear, normal breath sounds Cardiovascular #1: regular rate, rhythm, diastolic murmur, systolic murmur, other - mechanical sound of AV Cardiovascular #2: 2+ radial (R) Gastrointestinal: normal inspection, normal bowel sounds, non tender, no mass, non-distended Musculoskeletal: back normal, normal range of motion, gait/station normal Neurologic: alert, negative spotter III-XII nml as tested - Poorly compliant with sticking out his tongue, DTRs symmetric, oriented x3, cerebellar normal, motor weakness - Left arm and minimally leg, speech normal Psychiatric: anxious Skin: no rash, warm/dry Medical Decision Making Diagnostic Impression: Primary Impression: Chest pain Qualified Codes: R07.89 - Other chest pain Additional Impressions: Headache Qualified Codes: R51 - Headache Left-sided weakness UTI (urinary tract infection) Qualified Codes: N39.0 - Urinary tract infection, site not specified Elevated lactic acid level ER Course Patient presents with chest pain, left-sided headache and weakness. Differential includes CVA, TIA, brain bleed, complex migraine, acute myocardial infarction, acute coronary syndrome, arrhythmia amongst others. Patient is extremely complex left aortic valve replacement and with previous strokes. Patient evaluated with EKG, CT of the head, chest x-ray and labs. Patient on Elaquis and not clear for possible CVA - contraindication for TPA. EKG, no STEMI. CT of the head with multiple small infarcts, nothing acute. Chest x-ray with surgical repair of valve and aorta. Normal white count. CMP essentially normal except for minimally elevated LFTs. Urinalysis with pyuria. Elevated lactic acid called. WBC normal and VS stable. Antibiotics ordered for UTI. 30 ml/kg bolus not indicated - however will give bolus and IV hydration. No evidence of overt sepsis. 1947 Improving neurologic exam 1999. Aspirin given for possible TIA. Patient with high analgesic requests and requirements. Discussed possible transition to [place] 10/325 after last administration of Dilaudid. Patient admitted telemetry. Consider possible TIA. Laboratory Tests Test 11/26/19 16:37 11/26/19 16:40 11/26/19 16:50 11/26/19 17:40 White Blood Count 9.2 K/UL (4.8-10.8) Red Blood Count 4.91 M/UL (4.70-6.10) Hemoglobin 14.8 G/DL (14.2-18.0) Hematocrit 45.9 % (42.0-52.0) Mean Corpuscular Volume 94 FL (80-99) Mean Corpuscular Hemoglobin 30.2 PG (27.0-31.0) Mean Corpuscular Hemoglobin Concent 32.3 G/DL (32.0-36.0) Red Cell Distribution Width 13.3 % (11.6-14.8) Platelet Count 138 K/UL (150-450) L Mean Platelet Volume 8.3 FL (6.5-10.1) Neutrophils (%) (Auto) 58.6 % (45.0-75.0) Lymphocytes (%) (Auto) 30.3 % (20.0-45.0) Monocytes (%) (Auto) 8.5 % (1.0-10.0) Eosinophils (%) (Auto) 1.1 % (0.0-3.0) Basophils (%) (Auto) 1.5 % (0.0-2.0) Prothrombin Time 11.1 SEC (9.30-11.50) Prothrombin Time INR 1.0 (0.9-1.1) Activated Partial Thromboplast Time 22 SEC (23-33) L Sodium Level 143 MMOL/L (136-145) Potassium Level 3.3 MMOL/L (3.5-5.1) L Chloride Level 106 MMOL/L (98-107) Carbon Dioxide Level 23 MMOL/L (21-32) Anion Gap 14 mmol/L (5-15) Blood Urea Nitrogen 12 mg/dL (7-18) Creatinine 1.4 MG/DL (0.55-1.30) H Estimated Glomerular Filtration Rate > 60 mL/min (>60) Glucose Level 183 MG/DL (74-106) H Calcium Level 9.5 MG/DL (8.5-10.1) Total Bilirubin 1.2 MG/DL (0.2-1.0) H Direct Bilirubin 0.2 MG/DL (0.0-0.3) Aspartate Amino Transferase (AST) 71 U/L (15-37) H Alanine Aminotransferase (ALT) 104 U/L (12-78) H Alkaline Phosphatase 139 U/L (46-116) H Total Creatine Kinase 188 U/L (26-308) Troponin I 0.000 ng/mL (0.000-0.056) C-Reactive Protein, Quantitative 1.6 mg/dL (0.00-0.90) H Pro-B-Type Natriuretic Peptide 100 pg/mL (0-125) Total Protein 7.7 G/DL (6.4-8.2) Albumin 3.8 G/DL (3.4-5.0) Globulin 3.9 g/dL Albumin/Globulin Ratio 1.0 (1.0-2.7) Lipase 241 U/L (73-393) POC Whole Blood Glucose 174 MG/DL (74-106) H Lactic Acid Level Pending Urine Color Yellow Urine Appearance Slightly cloudy Urine pH 5 (4.5-8.0) Urine Specific [place] 1.025 (1.005-1.035) Urine Protein 2+ (NEGATIVE) H Urine Glucose (UA) Negative (NEGATIVE) Urine Ketones 1+ (NEGATIVE) H Urine Blood 2+ (NEGATIVE) H Urine Nitrite Negative (NEGATIVE) Urine Bilirubin Negative (NEGATIVE) Urine Urobilinogen Normal MG/DL (0.0-1.0) Urine Leukocyte Esterase 3+ (NEGATIVE) H Urine RBC 2-4 /HPF (0 - 0) H Urine WBC 40-60 /HPF (0 - 0) H Urine Squamous Epithelial Cells Occasional /LPF Urine Bacteria Many /HPF (NONE) H Urine Opiates Screen Negative (NEGATIVE) Urine Barbiturates Screen Negative (NEGATIVE) Phencyclidine (PCP) Screen Negative (NEGATIVE) Urine Amphetamines Screen Negative (NEGATIVE) Urine Benzodiazepines Screen Negative (NEGATIVE) Urine Cocaine Screen Negative (NEGATIVE) Urine Marijuana (THC) Screen Negative (NEGATIVE) Microbiology Date/Time Source Procedure Growth Status 11/26/19 16:35 Nasopharynx SARS-CoV-2 RdRp Gene Assay - Final Complete EKG Diagnostic Results Rate: normal Rhythm: NSR ST Segments: no acute changes ASA given to the pt in ED: Yes Rhythm Strip Diag. Results EP Interpretation: yes Rhythm: NSR, other - Sinus rhythm with PVCs Chest X-Ray Diagnostic Results Chest X-Ray Diagnostic Results : Chest X-Ray Ordered: Yes # of Views/Limited/Complete: 1 View Indication: Chest Pain EP Interpretation: Yes Interpretation: no consolidation, no effusion, no pneumothorax, other - aortic repair Impression: No acute disease Electronically Signed by: Electronically signed by Thomas Saravia MD CT/MRI/US Diagnostic Results CT/MRI/US Diagnostic Results : Imaging Test Ordered: head Impression Brain: Since prior study, there is multifocal small encephalomalacia in the high right frontoparietal parenchyma at the level of the centrum semiovale and near the vertex. Similar small left white matter infarct frontoparietal region at the level of the centrum semiovale. Interval new small right basal ganglia lacunar infarct. Parenchymal volume loss. Nonspecific white matter hypoattenuation likely secondary to chronic microvascular ischemia. Cerebrovascular ASVD. No hemorrhage. Ventricles: Unremarkable. No ventriculomegaly. Bones/joints: Unremarkable. No acute fracture. Soft tissues: Unremarkable. Sinuses: Unremarkable as visualized. No acute sinusitis. Mastoid air cells: Unremarkable as visualized. No mastoid effusion. IMPRESSION: 1. No acute intracranial abnormality. 2. Interval new multifocal small areas of encephalomalacia discussed above. 3. Mild chronic senescent findings above. Last Vital Signs Date Time Temp Pulse Resp B/P (MAP) Pulse Ox O2 Delivery O2 Flow Rate FiO2 11/27/19 00:57 Room Air 11/27/19 00:57 96.8 80 18 136/82 (100) 96 Status: improved Disposition: ADMITTED INPATIENT Condition: Serious Thomas Saravia MD Nov 26, 2019 16:40
[2019-11-26 16:54] LABS: BASOPHILS % (AUTO) 1.5 % (0.0-2.0); EOSINOPHILS % (AUTO) 1.1 % (0.0-3.0); HEMATOCRIT 45.9 % (42.0-52.0); HEMOGLOBIN 14.8 G/DL (14.2-18.0); LYMPHOCYTES % (AUTO) 30.3 % (20.0-45.0); MEAN CORPUSCULAR VOLUME 94 FL (80-99); MONOCYTES % (AUTO) 8.5 % (1.0-10.0); NEUTROPHILS % (AUTO) 58.6 % (45.0-75.0); PLATELET COUNT 138 K/UL (150-450); RED BLOOD COUNT 4.91 M/UL (4.70-6.10); RED CELL DISTRIBUTION WIDTH 13.3 % (11.6-14.8); WHITE BLOOD COUNT 9.2 K/UL (4.8-10.8)
[2019-11-26 17:11] LABS: ANION GAP 14 mmol/L (5-15); BLOOD UREA NITROGEN 12 mg/dL (7-18); CALCIUM 9.5 MG/DL (8.5-10.1); CARBON DIOXIDE 23 MMOL/L (21-32); CHLORIDE 106 MMOL/L (98-107); CREATININE 1.4 MG/DL (0.55-1.30); POTASSIUM 3.3 MMOL/L (3.5-5.1); SODIUM 143 MMOL/L (136-145)
[2019-11-26 17:21] LABS: ALANINE AMINOTRANSFERASE 104 U/L (12-78); ALBUMIN 3.8 G/DL (3.4-5.0); ALKALINE PHOSPHATASE 139 U/L (46-116); ASPARTATE AMINO TRANSFERASE 71 U/L (15-37); BILIRUBIN,TOTAL 1.2 MG/DL (0.2-1.0); CREATINE KINASE 188 U/L (26-308)
[2019-11-26 17:23] LABS: BILIRUBIN,DIRECT 0.2 MG/DL (0.0-0.3)
--- NOTE | 2019-11-26 17:31 | Diagnostic Imaging Report ---
EXAM: CT Head Without Intravenous Contrast CLINICAL HISTORY: H/A TECHNIQUE: Axial computed tomography images of the head/brain without intravenous contrast. CTDI is 53.4 mGy and DLP is 1098.90 mGy-cm. One or more of the following dose reduction techniques were used: automated exposure control, adjustment of the mA and/or kV according to patient size, use of iterative reconstruction technique. COMPARISON: 04/29/15 FINDINGS: Brain: Since prior study, there is multifocal small encephalomalacia in the high right frontoparietal parenchyma at the level of the centrum semiovale and near the vertex. Similar small left white matter infarct frontoparietal region at the level of the centrum semiovale. Interval new small right basal ganglia lacunar infarct. Parenchymal volume loss. Nonspecific white matter hypoattenuation likely secondary to chronic microvascular ischemia. Cerebrovascular ASVD. No hemorrhage. Ventricles: Unremarkable. No ventriculomegaly. Bones/joints: Unremarkable. No acute fracture. Soft tissues: Unremarkable. Sinuses: Unremarkable as visualized. No acute sinusitis. Mastoid air cells: Unremarkable as visualized. No mastoid effusion. IMPRESSION: 1. No acute intracranial abnormality. 2. Interval new multifocal small areas of encephalomalacia discussed above. 3. Mild chronic senescent findings above.
--- NOTE | 2019-11-26 17:37 | Diagnostic Imaging Report ---
EXAM: XR Chest, 1 View CLINICAL HISTORY: CP TECHNIQUE: Frontal view of the chest. COMPARISON: Chest radiograph 05/09/2019 and CTA chest 10/27/18 FINDINGS: Lungs: Low lung volumes with bronchovascular crowding. No consolidation, pleural effusion, or pneumothorax. Pleural space: See above. Heart: Unchanged cardiomegaly. Mediastinum: Unremarkable. Bones/joints: Unchanged sternotomy, mediastinal operative findings, aortic root repair. Vasculature: Unchanged aortic endograft beginning in the arch and extending into the descending thoracic aorta. IMPRESSION: 1. Unchanged aortic endograft beginning in the arch and extending into the descending thoracic aorta. 2. Unchanged sternotomy, mediastinal operative findings, aortic root repair. 3. Low lung volumes with bronchovascular crowding. 4. Unchanged cardiomegaly. 5. Otherwise no acute cardiopulmonary disease. 6. If there is continued concern, recommend frontal and lateral chest radiographs or CT.
[2019-11-26 18:40] VITALS: BP 158/90
[2019-11-26 18:56] LABS: BILIRUBIN, URINE NEGATIVE (NEGATIVE); GLUCOSE, URINE (UA) NEGATIVE (NEGATIVE); KETONES,URINE 1+ (NEGATIVE); LEUKOCYTE ESTERASE ,URINE 3+ (NEGATIVE); NITRITE,URINE NEGATIVE (NEGATIVE); PH,URINE 5 (4.5-8.0); PROTEIN,URINE 2+ (NEGATIVE); UROBILINOGEN,URINE NORMAL MG/DL (0.0-1.0)
[2019-11-26 19:01] LABS: APPEARANCE,URINE SLIGHTLY CLOUDY; COLOR,URINE YELLOW
[2019-11-26] MEDS ORDERED: cefTRIAXone 1 GM in NS 55 ML IVPB ONE (19:45)
--- NOTE | 2019-11-26 20:04 | Cardiac Electrophysiology PN ---
Subjective Subjective [id number] Objective Last 24 Hour Vital Signs Date Time Temp Pulse Resp B/P (MAP) Pulse Ox O2 Delivery O2 Flow Rate FiO2 11/26/19 18:40 98.4 89 16 158/90 97 Room Air 11/26/19 17:14 98.5 11/26/19 16:44 106 160/99 11/26/19 16:36 110 20 Room Air 11/26/19 16:36 98.4 110 20 160/99 99 Room Air 11/26/19 16:26 98.4 106 23 160/99 (119) 100 Room Air Laboratory Tests Test 11/26/19 16:37 11/26/19 16:40 11/26/19 16:50 11/26/19 17:40 White Blood Count 9.2 K/UL (4.8-10.8) Red Blood Count 4.91 M/UL (4.70-6.10) Hemoglobin 14.8 G/DL (14.2-18.0) Hematocrit 45.9 % (42.0-52.0) Mean Corpuscular Volume 94 FL (80-99) Mean Corpuscular Hemoglobin 30.2 PG (27.0-31.0) Mean Corpuscular Hemoglobin Concent 32.3 G/DL (32.0-36.0) Red Cell Distribution Width 13.3 % (11.6-14.8) Platelet Count 138 K/UL (150-450) L Mean Platelet Volume 8.3 FL (6.5-10.1) Neutrophils (%) (Auto) 58.6 % (45.0-75.0) Lymphocytes (%) (Auto) 30.3 % (20.0-45.0) Monocytes (%) (Auto) 8.5 % (1.0-10.0) Eosinophils (%) (Auto) 1.1 % (0.0-3.0) Basophils (%) (Auto) 1.5 % (0.0-2.0) Prothrombin Time 11.1 SEC (9.30-11.50) Prothromb Time International Ratio 1.0 (0.9-1.1) Activated Partial Thromboplast Time 22 SEC (23-33) L Sodium Level 143 MMOL/L (136-145) Potassium Level 3.3 MMOL/L (3.5-5.1) L Chloride Level 106 MMOL/L (98-107) Carbon Dioxide Level 23 MMOL/L (21-32) Anion Gap 14 mmol/L (5-15) Blood Urea Nitrogen 12 mg/dL (7-18) Creatinine 1.4 MG/DL (0.55-1.30) H Estimat Glomerular Filtration Rate > 60 mL/min (>60) Glucose Level 183 MG/DL (74-106) H Calcium Level 9.5 MG/DL (8.5-10.1) Total Bilirubin 1.2 MG/DL (0.2-1.0) H Direct Bilirubin 0.2 MG/DL (0.0-0.3) Aspartate Amino Transf (AST/SGOT) 71 U/L (15-37) H Alanine Aminotransferase (ALT/SGPT) 104 U/L (12-78) H Alkaline Phosphatase 139 U/L (46-116) H Total Creatine Kinase 188 U/L (26-308) Troponin I 0.000 ng/mL (0.000-0.056) C-Reactive Protein, Quantitative 1.6 mg/dL (0.00-0.90) H Pro-B-Type Natriuretic Peptide 100 pg/mL (0-125) Total Protein 7.7 G/DL (6.4-8.2) Albumin 3.8 G/DL (3.4-5.0) Globulin 3.9 g/dL Albumin/Globulin Ratio 1.0 (1.0-2.7) Lipase 241 U/L (73-393) POC Whole Blood Glucose 174 MG/DL (74-106) H Lactic Acid Level 3.80 mmol/L (0.4-2.0) H Urine Color Yellow Urine Appearance Slightly cloudy Urine pH 5 (4.5-8.0) Urine Specific [place] 1.025 (1.005-1.035) Urine Protein 2+ (NEGATIVE) H Urine Glucose (UA) Negative (NEGATIVE) Urine Ketones 1+ (NEGATIVE) H Urine Blood 2+ (NEGATIVE) H Urine Nitrite Negative (NEGATIVE) Urine Bilirubin Negative (NEGATIVE) Urine Urobilinogen Normal MG/DL (0.0-1.0) Urine Leukocyte Esterase 3+ (NEGATIVE) H Urine RBC 2-4 /HPF (0 - 0) H Urine WBC 40-60 /HPF (0 - 0) H Urine Squamous Epithelial Cells Occasional /LPF Urine Bacteria Many /HPF (NONE) H Urine Opiates Screen Negative (NEGATIVE) Urine Barbiturates Screen Negative (NEGATIVE) Phencyclidine (PCP) Screen Negative (NEGATIVE) Urine Amphetamines Screen Negative (NEGATIVE) Urine Benzodiazepines Screen Negative (NEGATIVE) Urine Cocaine Screen Negative (NEGATIVE) Urine Marijuana (THC) Screen Negative (NEGATIVE) Microbiology Date/Time Source Procedure Growth Status 11/26/19 16:35 Nasopharynx SARS-CoV-2 RdRp Gene Assay - Final Complete Juan Carlos Orosco MD Nov 26, 2019 20:04
[2019-11-26 21:00] VITALS: BP 155/85
[2019-11-26 23:00] VITALS: BP 145/79
[2019-11-27] VITALS (7 sets, daily range): BP systolic 124–143; BP diastolic 73–90
--- NOTE | 2019-11-27 02:59 | Consultation ---
DATE OF CONSULTATION: 11/26/2019 CARDIOLOGY CONSULTATION CONSULTING PHYSICIAN: Juan Carlos Orosco MD REFERRING PHYSICIAN: Rafaela Roy MD REASON FOR CONSULTATION: Chest pain. HISTORY OF PRESENT ILLNESS: The patient is a 74-year-old gentleman with history of hypertension and paroxysmal atrial fibrillation, status post ablation in June 2017, has a history of coronary artery disease, history of aortic dissection, status post bioprosthetic aortic valve replacement as well as aortic aneurysm repair in 2014. The patient also has history of prior stroke and left total knee replacement in June 2018. He also has history of right MCA thromboembolic stroke. The patient presented to the emergency room complaining of numbness and weakness in the left hand as well as left-sided chest pain and headache that lasted for 2 hours which he was driving after pickup from [employer]. The patient also has difficulty standing in view of generalized weakness. The patient was seen in the emergency room and a cardiology consultation was obtained for further evaluation and management. REVIEW OF SYSTEMS: Negative other than what is mentioned in history of present illness. PAST MEDICAL HISTORY: As mentioned above. FAMILY HISTORY: Noncontributory. SOCIAL HISTORY: He lives at home. He does not smoke or drink alcohol. PHYSICAL EXAMINATION: VITAL SIGNS: Blood pressure 130/70, pulse 70, respirations 18, and he is afebrile. His initial blood pressure here was 160/99. HEAD AND NECK: Showed no JVD. LUNGS: Clear. CARDIOVASCULAR: Shows regular S1 and S2 with no gallop or murmur. ABDOMEN: Soft. EXTREMITIES: Revealed no pitting edema. LABORATORY DATA: His labs show white count of 9.2, hemoglobin of 14.8, hematocrit 45, and platelet count 138. INR is 1. Sodium 142, potassium 2.3, BUN 12, creatinine 1.4. ASSESSMENT AND PLAN: 1. Chest pain. The patient with history of coronary artery disease. His first troponin was negative. EKG demonstrates no acute ischemic changes. We will completely rule out MA protocol and get an echocardiogram for further evaluation. 2. Paroxysmal atrial fibrillation, status post ablation in 2017, currently in sinus rhythm. Continue Eliquis for anticoagulation. 3. Status post bioprosthetic aortic valve replacement. 4. Status post thoracic aortic aneurysm repair. 5. Diabetes. 6. The patient's urine toxic screen is also negative. Thank you very much for allowing me to participate in the care of this patient. Please do not hesitate to contact me for any questions regarding my evaluation. The case was discussed with Dr. Saravia in the emergency room. Sincerely, Juan Carlos Orosco M.D. DR: HERMELINDA JOB#: [id number] CC: Thomas Saravia M.D.
[2019-11-27] MEDS ORDERED: HYDROmorphone 1mg/ml Carpuject IVP ONE (03:00)
[2019-11-27 07:18] LABS: BASOPHILS % (AUTO) 0.8 % (0.0-2.0); EOSINOPHILS % (AUTO) 1.2 % (0.0-3.0); HEMATOCRIT 42.8 % (42.0-52.0); HEMOGLOBIN 13.9 G/DL (14.2-18.0); LYMPHOCYTES % (AUTO) 38.7 % (20.0-45.0); MEAN CORPUSCULAR VOLUME 91 FL (80-99); MONOCYTES % (AUTO) 11.8 % (1.0-10.0); NEUTROPHILS % (AUTO) 47.5 % (45.0-75.0); PLATELET COUNT 136 K/UL (150-450); RED CELL DISTRIBUTION WIDTH 12.8 % (11.6-14.8); WHITE BLOOD COUNT 7.6 K/UL (4.8-10.8)
[2019-11-27 07:31] LABS: ALANINE AMINOTRANSFERASE 89 U/L (12-78); ALBUMIN 3.3 G/DL (3.4-5.0); ALKALINE PHOSPHATASE 138 U/L (46-116); ANION GAP 11 mmol/L (5-15); ASPARTATE AMINO TRANSFERASE 62 U/L (15-37); BILIRUBIN,TOTAL 0.9 MG/DL (0.2-1.0); BLOOD UREA NITROGEN 11 mg/dL (7-18); CALCIUM 8.4 MG/DL (8.5-10.1); CARBON DIOXIDE 26 MMOL/L (21-32); CHLORIDE 112 MMOL/L (98-107); CREATINE KINASE 171 U/L (26-308); CREATININE 1.1 MG/DL (0.55-1.30); GAMMA GLUTAMYL TRANSPEPTIDASE 32 U/L (5-85); PHOSPHORUS 2.6 MG/DL (2.5-4.9); POTASSIUM 3.4 MMOL/L (3.5-5.1); SODIUM 148 MMOL/L (136-145)
[2019-11-27 07:39] LABS: CHOLESTEROL 133 MG/DL (< 200); HDL CHOLESTEROL 56 MG/DL (40-60); TRIGLYCERIDES 56 MG/DL (30-150)
--- NOTE | 2019-11-27 07:40 | General Progress Note ---
Assessment/Plan Assessment/Plan: Assessment - Abnormal LFT - ? Fatty liver, ? hepatitis, ? CK or CVA - CAD - valvular heart disease - h/o CVA with (L) weakness - CP Recommendations - check hepatits B/C - follow LFT - Check CK - abd U/S - OK for ASA or systemic anticoagulation from GI standpoint Thank you Chris Murphy MD Subjective Allergies: Coded Allergies: MORPHINE (Verified Allergy, Severe, 11/07/10) NITROGLYCERIN (Verified Allergy, Severe, 11/07/10) KETOROLAC (Unverified Allergy, Intermediate, 03/14/14) FISH CONTAINING PRODUCTS (Verified Allergy, Mild, 07/20/14) per patient, "it knocks me out" ACETAMINOPHEN (Unverified Allergy, Unknown, 07/19/14) CODEINE (Unverified Allergy, Unknown, 11/03/13) UNKNOWN DIPHENHYDRAMINE (Unverified Allergy, Unknown, 09/30/14) IBUPROFEN (Unverified Allergy, Unknown, 11/03/13) UNKNOWN PROCHLORPERAZINE (Unverified Allergy, Unknown, 07/19/14) GABAPENTIN (Verified Adverse Reaction, Intermediate, 07/20/14) Per patient, it makes him sweat, throws up, and "blacks out" Objective Last 24 Hour Vital Signs Date Time Temp Pulse Resp B/P (MAP) Pulse Ox O2 Delivery O2 Flow Rate FiO2 11/27/19 04:00 Room Air 11/27/19 04:00 98.1 63 16 135/80 (98) 95 11/27/19 03:40 65 11/27/19 03:09 96.8 11/27/19 02:40 60 18 124/80 (95) 11/27/19 00:57 Room Air 11/27/19 00:57 96.8 80 18 136/82 (100) 96 11/27/19 00:57 Room Air 11/27/19 00:44 80 136/82 11/27/19 00:37 78 11/27/19 00:25 98.0 82 14 145/79 97 Room Air 11/26/19 23:00 98.0 82 14 145/79 97 Room Air 11/26/19 22:25 98.4 11/26/19 21:00 98.2 85 16 155/85 98 Room Air 11/26/19 19:46 98.4 11/26/19 18:40 98.4 89 16 158/90 97 Room Air 11/26/19 17:14 98.5 11/26/19 16:44 106 160/99 11/26/19 16:36 110 20 Room Air 11/26/19 16:36 98.4 110 20 160/99 99 Room Air 11/26/19 16:26 98.4 106 23 160/99 (119) 100 Room Air Intake and Output 11/26/19 11/27/19 19:00 07:00 Intake Total 263 ml Output Total 450 ml Balance -187 ml Intake IV Total 263 ml Output Urine Total 450 ml Laboratory Tests 11/26/19 16:37: White Blood Count 9.2, Red Blood Count 4.91, Hemoglobin 14.8, Hematocrit 45.9, Mean Corpuscular Volume 94, Mean Corpuscular Hemoglobin 30.2, Mean Corpuscular Hemoglobin Concent 32.3, Red Cell Distribution Width 13.3, Platelet Count 138L, Mean Platelet Volume 8.3, Neutrophils (%) (Auto) 58.6, Lymphocytes (%) (Auto) 30.3, Monocytes (%) (Auto) 8.5, Eosinophils (%) (Auto) 1.1, Basophils (%) (Auto ) 1.5, Prothrombin Time 11.1, Prothromb Time International Ratio 1.0, Activated Partial Thromboplast Time 22L, Sodium Level 143, Potassium Level 3.3L, Chloride Level 106, Carbon Dioxide Level 23, Anion Gap 14, Blood Urea Nitrogen 12, Creatinine 1.4H, Estimat Glomerular Filtration Rate > 60, Glucose Level 183H, Calcium Level 9.5, Total Bilirubin 1.2H, Direct Bilirubin 0.2, Aspartate Amino Transf (AST/SGOT) 71H, Alanine Aminotransferase (ALT/SGPT) 104H, Alkaline Phosphatase 139H, Total Creatine Kinase 188, Troponin I 0.000, C-Reactive Protein, Quantitative 1.6H, Pro-B-Type Natriuretic Peptide 100, Total Protein 7.7, Albumin 3.8, Globulin 3.9, Albumin/Globulin Ratio 1.0, Lipase 241 11/26/19 16:40: POC Whole Blood Glucose 174H 11/26/19 16:50: Lactic Acid Level 3.80H 11/26/19 17:40: Urine Color Yellow, Urine Appearance Slightly cloudy, Urine pH 5, Urine Specific [place] 1.025, Urine Protein 2+H, Urine Glucose (UA) Negative, Urine Ketones 1+H, Urine Blood 2+H, Urine Nitrite Negative, Urine Bilirubin Negative, Urine Urobilinogen Normal, Urine Leukocyte Esterase 3+H, Urine RBC 2-4H, Urine WBC 40-60H, Urine Squamous Epithelial Cells Occasional, Urine Bacteria ManyH, Urine Opiates Screen Negative, Urine Barbiturates Screen Negative, Phencyclidine (PCP) Screen Negative, Urine Amphetamines Screen Negative, Urine Benzodiazepines Screen Negative, Urine Cocaine Screen Negative, Urine Marijuana (THC) Screen Negative 11/26/19 20:50: Lactic Acid Level 1.70 11/27/19 03:28: White Blood Count 7.6, Red Blood Count 4.70, Hemoglobin 13.9L, Hematocrit 42.8, Mean Corpuscular Volume 91, Mean Corpuscular Hemoglobin 29.6, Mean Corpuscular Hemoglobin Concent 32.5, Red Cell Distribution Width 12.8, Platelet Count 136L, Mean Platelet Volume 8.0, Neutrophils (%) (Auto) 47.5, Lymphocytes (%) (Auto) 38.7, Monocytes (%) (Auto) 11.8H, Eosinophils (%) (Auto) 1.2, Basophils (%) ( Auto) 0.8, Sodium Level 148H, Potassium Level 3.4L, Chloride Level 112H, Carbon Dioxide Level 26, Anion Gap 11, Blood Urea Nitrogen 11, Creatinine 1.1, Estimat Glomerular Filtration Rate > 60, Glucose Level 116H, Hemoglobin A1c [Pending], Uric Acid 6.9, Calcium Level 8.4L, Phosphorus Level 2.6, Magnesium Level 2.0, Total Bilirubin 0.9, Gamma Glutamyl Transpeptidase 32, Aspartate Amino Transf ( AST/SGOT) 62H, Alanine Aminotransferase (ALT/SGPT) 89H, Alkaline Phosphatase 138H, Total Creatine Kinase 171, Troponin I [Pending], Pro-B-Type Natriuretic Peptide [Pending], Total Protein 6.7, Albumin 3.3L, Globulin 3.4, Albumin/ Globulin Ratio 1.0, Triglycerides Level [Pending], Cholesterol Level [Pending], LDL Cholesterol [Pending], HDL Cholesterol [Pending], Cholesterol/HDL Ratio [ Pending], Thyroid Stimulating Hormone (TSH) [Pending], Free Thyroxine [Pending] Height (Feet): 6 Height (Inches): 4.00 Weight (Pounds): 230 Chris Murphy MD Nov 27, 2019 07:40
[2019-11-27] MEDS ORDERED: Varibar Honey 250ml MC PRN (08:15)
[2019-11-27] MEDS ORDERED: Varibar Nectar 240ml MC PRN (08:15)
[2019-11-27] MEDS ORDERED: Varibar Thin Liquid powder 148gm MC PRN (08:15)
[2019-11-27] MEDS ORDERED: Varibar Pudding 230ml MC PRN (08:15)
--- NOTE | 2019-11-27 08:48 | Consultation ---
History of Present Illness General Date patient seen: Nov 27, 2019 Time patient seen: 07:45 - am Chief Complaint: Left sided body pain Referring physician: Kirill Reason for Consultation: Pain Management Present Illness HPI HISTORY OF PRESENT ILLNESS: Patient is a 72 y/o male seen on the SDU of [facility] for comprehensive pain management consultation. Patient admitted with chest pain, rule out acute coronary syndrome. Patient also had left-sided chest pain and headache. He also complained of numbness and weakness on the left side of the body that started yesterday. He is a known patient from prior admissions. We were consulted so patient has adequate pain control while here in the hospital. Allergies: Coded Allergies: MORPHINE (Verified Allergy, Severe, 11/07/10) NITROGLYCERIN (Verified Allergy, Severe, 11/07/10) KETOROLAC (Unverified Allergy, Intermediate, 03/14/14) FISH CONTAINING PRODUCTS (Verified Allergy, Mild, 07/20/14) per patient, "it knocks me out" ACETAMINOPHEN (Unverified Allergy, Unknown, 07/19/14) CODEINE (Unverified Allergy, Unknown, 11/03/13) UNKNOWN DIPHENHYDRAMINE (Unverified Allergy, Unknown, 09/30/14) IBUPROFEN (Unverified Allergy, Unknown, 11/03/13) UNKNOWN PROCHLORPERAZINE (Unverified Allergy, Unknown, 07/19/14) GABAPENTIN (Verified Adverse Reaction, Intermediate, 07/20/14) Per patient, it makes him sweat, throws up, and "blacks out" Medication History Scheduled Amlodipine Besylate* (Amlodipine Besylate*), 10 MG ORAL BID, (Reported) Apixaban (Eliquis), 5 MG PO TID, (Reported) Atenolol* (Tenormin*), 50 MG ORAL BID Ceftriaxone Na/Dextrose,Iso (Ceftriaxone 2 Gm Piggyback), 2 GM IV DAILY Scheduled PRN Hydrocodone Bit/Acetaminophen 10-325* ([place] 10-325*), 1 TAB ORAL Q12HR PRN for For Pain Tramadol Hcl* (Ultram*), 100 MG ORAL Q6H PRN for For Pain Zolpidem Tartrate* (Zolpidem Tartrate*), HS PRN for Insomnia, (Reported) Discontinued Medications Aspirin (Aspirin EC), 81 MG ORAL DAILY, (Reported) Discontinued Reason: Pt stopped taking med Patient History Healthcare decision maker Resuscitation status Advanced Directive on File Past Medical/Surgical History Past Medical/Surgical History: (1) Left-sided weakness (2) Headache (3) Paroxysmal atrial fibrillation (4) CVA (cerebral vascular accident) (5) Left inguinal hernia (6) HTN (hypertension) (7) 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 (8) CAD (coronary artery disease) (9) Thalamic pain syndrome (10) Lumbar post-laminectomy syndrome (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, 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 Review of Systems ROS Narrative Constitutional: Denies: no symptoms, chills, diaphoresis, fever, malaise, weakness, other HEENT: Denies: no symptoms, eye pain, blurred vision, tearing, double vision, ear pain, ear discharge, nose pain, nose congestion, throat pain, throat swelling, mouth pain, mouth swelling, other Cardiovascular: Denies: no symptoms, chest pain, edema, irregular heart rate, lightheadedness, palpitations, syncope, other Respiratory: Denies: no symptoms, cough, orthopnea, shortness of breath, SOB with excertion, SOB at rest, sputum, stridor, wheezing, other Gastrointestinal/Abdominal: Denies: no symptoms, abdomen distended, abdominal pain, black stools, tarry stools, blood in stool, constipated, diarrhea, difficulty swallowing, nausea, poor appetite, poor fluid intake, rectal bleeding , vomiting, other Genitourinary: Denies: no symptoms, burning, discharge, frequency, flank pain, hematuria, incontinence, pain, urgency, other Neurologic/Psychiatric: Denies: no symptoms, anxiety, depressed, emotional problems, headache, numbness, paresthesia, pre-existing deficit, seizure, tingling, tremors, weakness, other Endocrine: Denies: no symptoms, excessive sweating, flushing, intolerance to cold, intolerance to heat, increased hunger, increased thirst, increased urine, unexplained weight gain, unexplained weight loss, other Hematologic/Lymphatic: Denies: no symptoms, anemia, easy bleeding, easy bruising, other Physical Exam Physical Exam Narrative General Appearance: no apparent distress, alert EENT: PERRL/EOMI, TMs normal Neck: non-tender, normal alignment, supple Cardiovascular: normal rate, regular rhythm Respiratory/Chest: chest wall non-tender, lungs clear Abdomen: non tender, soft Extremities: non-tender Edema: no edema noted Arm (L), no edema noted Arm (R), no edema noted Leg (L), no edema noted Leg (R), no edema noted Pedal (L), no edema noted Pedal (R), no edema noted Generalized Neurologic: alert, oriented x 3 Skin: normal pigmentation Last 24 Hour Vital Signs Date Time Temp Pulse Resp B/P (MAP) Pulse Ox O2 Delivery O2 Flow Rate FiO2 11/27/19 08:00 Room Air 11/27/19 04:00 Room Air 11/27/19 04:00 98.1 63 16 135/80 (98) 95 11/27/19 03:40 65 11/27/19 03:09 96.8 11/27/19 02:40 60 18 124/80 (95) 11/27/19 00:57 Room Air 11/27/19 00:57 96.8 80 18 136/82 (100) 96 11/27/19 00:57 Room Air 11/27/19 00:44 80 136/82 11/27/19 00:37 78 11/27/19 00:25 98.0 82 14 145/79 97 Room Air 11/26/19 23:00 98.0 82 14 145/79 97 Room Air 11/26/19 22:25 98.4 11/26/19 21:00 98.2 85 16 155/85 98 Room Air 11/26/19 19:46 98.4 11/26/19 18:40 98.4 89 16 158/90 97 Room Air 11/26/19 17:14 98.5 11/26/19 16:44 106 160/99 11/26/19 16:36 110 20 Room Air 11/26/19 16:36 98.4 110 20 160/99 99 Room Air 11/26/19 16:26 98.4 106 23 160/99 (119) 100 Room Air Intake and Output 11/26/19 11/27/19 18:59 06:59 Intake Total 263 ml Output Total 450 ml Balance -187 ml Intake IV Total 263 ml Output Urine Total 450 ml Laboratory Tests Test 11/26/19 16:37 11/26/19 16:40 11/26/19 16:50 11/26/19 17:40 White Blood Count 9.2 K/UL (4.8-10.8) Red Blood Count 4.91 M/UL (4.70-6.10) Hemoglobin 14.8 G/DL (14.2-18.0) Hematocrit 45.9 % (42.0-52.0) Mean Corpuscular Volume 94 FL (80-99) Mean Corpuscular Hemoglobin 30.2 PG (27.0-31.0) Mean Corpuscular Hemoglobin Concent 32.3 G/DL (32.0-36.0) Red Cell Distribution Width 13.3 % (11.6-14.8) Platelet Count 138 K/UL (150-450) L Mean Platelet Volume 8.3 FL (6.5-10.1) Neutrophils (%) (Auto) 58.6 % (45.0-75.0) Lymphocytes (%) (Auto) 30.3 % (20.0-45.0) Monocytes (%) (Auto) 8.5 % (1.0-10.0) Eosinophils (%) (Auto) 1.1 % (0.0-3.0) Basophils (%) (Auto) 1.5 % (0.0-2.0) Prothrombin Time 11.1 SEC (9.30-11.50) Prothromb Time International Ratio 1.0 (0.9-1.1) Activated Partial Thromboplast Time 22 SEC (23-33) L Sodium Level 143 MMOL/L (136-145) Potassium Level 3.3 MMOL/L (3.5-5.1) L Chloride Level 106 MMOL/L (98-107) Carbon Dioxide Level 23 MMOL/L (21-32) Anion Gap 14 mmol/L (5-15) Blood Urea Nitrogen 12 mg/dL (7-18) Creatinine 1.4 MG/DL (0.55-1.30) H Estimat Glomerular Filtration Rate > 60 mL/min (>60) Glucose Level 183 MG/DL (74-106) H Calcium Level 9.5 MG/DL (8.5-10.1) Total Bilirubin 1.2 MG/DL (0.2-1.0) H Direct Bilirubin 0.2 MG/DL (0.0-0.3) Aspartate Amino Transf (AST/SGOT) 71 U/L (15-37) H Alanine Aminotransferase (ALT/SGPT) 104 U/L (12-78) H Alkaline Phosphatase 139 U/L (46-116) H Total Creatine Kinase 188 U/L (26-308) Troponin I 0.000 ng/mL (0.000-0.056) C-Reactive Protein, Quantitative 1.6 mg/dL (0.00-0.90) H Pro-B-Type Natriuretic Peptide 100 pg/mL (0-125) Total Protein 7.7 G/DL (6.4-8.2) Albumin 3.8 G/DL (3.4-5.0) Globulin 3.9 g/dL Albumin/Globulin Ratio 1.0 (1.0-2.7) Lipase 241 U/L (73-393) POC Whole Blood Glucose 174 MG/DL (74-106) H Lactic Acid Level 3.80 mmol/L (0.4-2.0) H Urine Color Yellow Urine Appearance Slightly cloudy Urine pH 5 (4.5-8.0) Urine Specific [place] 1.025 (1.005-1.035) Urine Protein 2+ (NEGATIVE) H Urine Glucose (UA) Negative (NEGATIVE) Urine Ketones 1+ (NEGATIVE) H Urine Blood 2+ (NEGATIVE) H Urine Nitrite Negative (NEGATIVE) Urine Bilirubin Negative (NEGATIVE) Urine Urobilinogen Normal MG/DL (0.0-1.0) Urine Leukocyte Esterase 3+ (NEGATIVE) H Urine RBC 2-4 /HPF (0 - 0) H Urine WBC 40-60 /HPF (0 - 0) H Urine Squamous Epithelial Cells Occasional /LPF Urine Bacteria Many /HPF (NONE) H Urine Opiates Screen Negative (NEGATIVE) Urine Barbiturates Screen Negative (NEGATIVE) Phencyclidine (PCP) Screen Negative (NEGATIVE) Urine Amphetamines Screen Negative (NEGATIVE) Urine Benzodiazepines Screen Negative (NEGATIVE) Urine Cocaine Screen Negative (NEGATIVE) Urine Marijuana (THC) Screen Negative (NEGATIVE) Test 11/26/19 20:50 11/27/19 03:28 Lactic Acid Level 1.70 mmol/L (0.66-2.22) White Blood Count 7.6 K/UL (4.8-10.8) Red Blood Count 4.70 M/UL (4.70-6.10) Hemoglobin 13.9 G/DL (14.2-18.0) L Hematocrit 42.8 % (42.0-52.0) Mean Corpuscular Volume 91 FL (80-99) Mean Corpuscular Hemoglobin 29.6 PG (27.0-31.0) Mean Corpuscular Hemoglobin Concent 32.5 G/DL (32.0-36.0) Red Cell Distribution Width 12.8 % (11.6-14.8) Platelet Count 136 K/UL (150-450) L Mean Platelet Volume 8.0 FL (6.5-10.1) Neutrophils (%) (Auto) 47.5 % (45.0-75.0) Lymphocytes (%) (Auto) 38.7 % (20.0-45.0) Monocytes (%) (Auto) 11.8 % (1.0-10.0) H Eosinophils (%) (Auto) 1.2 % (0.0-3.0) Basophils (%) (Auto) 0.8 % (0.0-2.0) Sodium Level 148 MMOL/L (136-145) H Potassium Level 3.4 MMOL/L (3.5-5.1) L Chloride Level 112 MMOL/L (98-107) H Carbon Dioxide Level 26 MMOL/L (21-32) Anion Gap 11 mmol/L (5-15) Blood Urea Nitrogen 11 mg/dL (7-18) Creatinine 1.1 MG/DL (0.55-1.30) Estimat Glomerular Filtration Rate > 60 mL/min (>60) Glucose Level 116 MG/DL (74-106) H Hemoglobin A1c 7.3 % (4.3-6.0) H Uric Acid 6.9 MG/DL (2.6-7.2) Calcium Level 8.4 MG/DL (8.5-10.1) L Phosphorus Level 2.6 MG/DL (2.5-4.9) Magnesium Level 2.0 MG/DL (1.8-2.4) Total Bilirubin 0.9 MG/DL (0.2-1.0) Gamma Glutamyl Transpeptidase 32 U/L (5-85) Aspartate Amino Transf (AST/SGOT) 62 U/L (15-37) H Alanine Aminotransferase (ALT/SGPT) 89 U/L (12-78) H Alkaline Phosphatase 138 U/L (46-116) H Total Creatine Kinase 171 U/L (26-308) Troponin I 0.009 ng/mL (0.000-0.056) Pro-B-Type Natriuretic Peptide 97 pg/mL (0-125) Total Protein 6.7 G/DL (6.4-8.2) Albumin 3.3 G/DL (3.4-5.0) L Globulin 3.4 g/dL Albumin/Globulin Ratio 1.0 (1.0-2.7) Triglycerides Level 56 MG/DL (30-150) Cholesterol Level 133 MG/DL (< 200) LDL Cholesterol 68 mg/dL (<100) HDL Cholesterol 56 MG/DL (40-60) Cholesterol/HDL Ratio 2.4 (3.3-4.4) L Thyroid Stimulating Hormone (TSH) 3.785 uiU/mL (0.358-3.740) Free Thyroxine 1.12 NG/DL (0.76-1.46) Microbiology Date/Time Source Procedure Growth Status 11/26/19 16:35 Nasopharynx SARS-CoV-2 RdRp Gene Assay - Final Complete Height (Feet): 6 Height (Inches): 4.00 Weight (Pounds): 230 Medications Current Medications Medications (Trade) Dose Ordered Sig/Sheba Route PRN Reason Start Time Stop Time Status Last Admin Dose Admin Amlodipine Besylate (Norvasc) 10 mg DAILY ORAL 11/27/19 09:00 12/27/19 08:59 Atenolol (Tenormin) 50 mg Q12HR ORAL 11/27/19 09:00 12/26/19 21:44 Barium Sulfate (Varibar Honey) 250 ml NOW PRN RAD 11/27/19 08:15 11/30/19 08:02 Barium Sulfate (Varibar [place]) 240 ml NOW PRN RAD 11/27/19 08:15 11/30/19 08:02 Barium Sulfate (Varibar Pudding) 230 ml NOW PRN RAD 11/27/19 08:15 11/30/19 08:02 Barium Sulfate (Varibar Thin Liquid powder) 148 gm NOW PRN RAD 11/27/19 08:15 11/30/19 08:02 Docusate Sodium (Colace) 100 mg THREE TIMES A DAY ORAL 11/27/19 09:00 12/27/19 08:59 Pantoprazole (Protonix) 40 mg EVERY 12 HOURS ORAL 11/26/19 21:45 12/26/19 21:44 11/27/19 00:43 Potassium Chloride (K-Dur) 40 meq BID ORAL 11/27/19 09:00 02/25/20 08:59 Sodium Chloride 1,000 ml @ 50 mls/hr Q20H IV 11/26/19 22:00 12/26/19 21:59 11/27/19 00:43 Assessment/Plan Assessment/Plan: (1) Hemiplegia, flaccid, nondominant side (2) Lumbar post-laminectomy syndrome (3) HO TKR (total knee replacement) (4) OA (osteoarthritis) of knee (5) Thalamic pain syndrome (6) CVA (cerebral vascular accident) We will start [place] 10/325mg PO 1 tab Q4H PRN and Tramadol 100mg PO 1 tab Q6H PRN. 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 Linn and Dr. Linn concurred. Fabiano Loza Nov 27, 2019 08:48
[2019-11-27] MEDS ORDERED: traMADol 50mg tab ORAL PRN (09:00)
[2019-11-27] MEDS ORDERED: Naloxone 0.4mg/ml Inj IVP PRN (09:15)
[2019-11-27] MEDS: Docusate 100mg cap ORAL SCH ×3 (09:58→17:01)
[2019-11-27] MEDS: Hydromorphone 0.5mg/0.5ml inj IVP PRN ×5 (09:59→23:36)
--- NOTE | 2019-11-27 10:39 | Diagnostic Imaging Report ---
EXAM: ULTRASOUND Venous Duplex Scan Zak Leg CLINICAL HISTORY: Leg pain and edema. COMPARISON: None TECHNIQUE: Doppler examination include grayscale images obtained with and without compression, and color and spectral doppler analysis. FINDINGS: Doppler examination shows normal spontaneity, phasicity, compressibility in the bilateral lower extremities. There is no thrombus identified by grayscale. Normal color and spectral flow is identified. There is no evidence of valvular incompetency or insufficiency. IMPRESSION: UNREMARKABLE VENOUS DUPLEX.
--- NOTE | 2019-11-27 11:10 | Diagnostic Imaging Report ---
EXAM: ULTRASOUND US ABD Complete CLINICAL HISTORY: Abdominal pain.. COMPARISON: None TECHNIQUE: Ultrasound examination of the abdomen includes grayscale images, and color and spectral doppler analysis. FINDINGS: Study limited due to bowel gas. The liver is diffusely echogenic likely fatty change. It is also slightly enlarged. Spleen is within normal limits. Gallbladder is poorly visualized due to bowel gas. Common bile duct measures 6 mm. Pancreas is also obscured by bowel gas. Right kidneys unremarkable. Mildly complex cyst noted upper pole left kidney. Aorta and cava are within normal limits. IMPRESSION: FATTY LIVER. GALLBLADDER AND PANCREAS POORLY VISUALIZED DUE TO BOWEL GAS. MILDLY COMPLEX CYST UPPER POLE LEFT KIDNEY.
[2019-11-27] MEDS: HYDROcodone/Acetamin 10/325 tab ORAL PRN ×2 (12:13→18:26)
--- NOTE | 2019-11-27 14:17 | Consultation ---
Consult Note Consult Note I am asked to evaluate the patient at the request of Dr. Napier for renal failure and electrolyte imbalance [facility]: The patient presents with left-sided chest pain and headache. He also is complaining about numbness and weakness on the left-hand side. This started 2 hours ago while he was driving after picking up [employer]. He states he is having difficulty standing at this time because of weakness. Past History: Sepsis with Strep group B bacteremia; r/o endocarditis, aortic graft infection Coronary artery disease Atypical chest pain Paroxysmal atrial fibrillation , status post ablation 06/2017 Hypertension Obesity History of right MCA thromboembolic stroke Status post laminectomy Left total knee replacement , status post revision and screw removal 06/2018 Hypertension Status post bioprosthetic AVR Somatization disorder Aortic aneurysm, status post repair 2014 GERD Acute kidney injury-resolved Thalamic pain syndrome Thrombocytopenia Osteoarthritis Anxiety Allergies: MORPHINE (Verified Allergy, Severe, 11/07/10) NITROGLYCERIN (Verified Allergy, Severe, 11/07/10) KETOROLAC (Unverified Allergy, Intermediate, 03/14/14) FISH CONTAINING PRODUCTS (Verified Allergy, Mild, 07/20/14) per patient, "it knocks me out" ACETAMINOPHEN (Unverified Allergy, Unknown, 07/19/14) CODEINE (Unverified Allergy, Unknown, 11/03/13) UNKNOWN DIPHENHYDRAMINE (Unverified Allergy, Unknown, 09/30/14) IBUPROFEN (Unverified Allergy, Unknown, 11/03/13) UNKNOWN PROCHLORPERAZINE (Unverified Allergy, Unknown, 07/19/14) GABAPENTIN (Verified Adverse Reaction, Intermediate, 07/20/14) Per patient, it makes him sweat, throws up, and "blacks out" COVID-19 Screening Contact w/high risk pt: No Experienced COVID-19 symptoms?: No COVID-19 Testing performed 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 Assessment/Plan 74 years old male with multiple risk factors for coronary artery disease: Serum creatinine 1.4, renal disease most likely multifactorial. Proteinuria Chest pain with history of coronary artery disease Paroxysmal atrial fibrillation, ablation in 2018. Continues on Eliquis Status post bioprosthetic aortic valve replacement Status post thoracic aorta aneurysm repair Diabetes mellitus UTI, elevated lactic acid level Hypertension Elevated LFTs Suggestion: Blood pressure medication Keep the blood sugar in check 2D echocardiogram Antibiotics, avoid nephrotoxic's Monitor liver enzymes Potassium supplements Per orders Jose Gracia MD Nov 27, 2019 14:17
--- NOTE | 2019-11-27 14:28 | Cardiac Electrophysiology PN ---
Assessment/Plan Assessment/Plan 1. Chest pain. The patient with history of coronary artery disease. EKG demonstrates no acute ischemic changes. Ruled out for MS Echo pending. 2. Paroxysmal atrial fibrillation, status post ablation in 2018, currently in sinus rhythm. Continue Eliquis for anticoagulation. 3. Status post bioprosthetic aortic valve replacement. 4. Status post thoracic aortic aneurysm repair. 5. Diabetes. 6. The patient's urine toxic screen is also negative. Subjective Subjective In SR on tele. Asking for pain meds. Objective Last 24 Hour Vital Signs Date Time Temp Pulse Resp B/P (MAP) Pulse Ox O2 Delivery O2 Flow Rate FiO2 11/27/19 12:50 61 11/27/19 11:53 Room Air 11/27/19 11:52 97.7 67 18 125/73 (90) 96 11/27/19 10:29 98.1 11/27/19 09:58 63 135/80 11/27/19 09:57 63 135/80 11/27/19 08:00 Room Air 11/27/19 08:00 61 11/27/19 08:00 96.8 63 20 143/82 (102) 97 11/27/19 04:00 Room Air 11/27/19 04:00 98.1 63 16 135/80 (98) 95 11/27/19 03:40 65 11/27/19 03:09 96.8 11/27/19 02:40 60 18 124/80 (95) 11/27/19 00:57 Room Air 11/27/19 00:57 96.8 80 18 136/82 (100) 96 11/27/19 00:57 Room Air 11/27/19 00:44 80 136/82 11/27/19 00:37 78 11/27/19 00:25 98.0 82 14 145/79 97 Room Air 11/26/19 23:00 98.0 82 14 145/79 97 Room Air 11/26/19 22:25 98.4 11/26/19 21:00 98.2 85 16 155/85 98 Room Air 11/26/19 19:46 98.4 11/26/19 18:40 98.4 89 16 158/90 97 Room Air 11/26/19 17:14 98.5 11/26/19 16:44 106 160/99 11/26/19 16:36 110 20 Room Air 11/26/19 16:36 98.4 110 20 160/99 99 Room Air 11/26/19 16:26 98.4 106 23 160/99 (119) 100 Room Air Intake and Output 11/26/19 11/27/19 19:00 07:00 Intake Total 263 ml Output Total 450 ml Balance -187 ml Intake IV Total 263 ml Output Urine Total 450 ml Laboratory Tests Test 11/26/19 16:37 11/26/19 16:40 11/26/19 16:50 11/26/19 17:40 White Blood Count 9.2 K/UL (4.8-10.8) Red Blood Count 4.91 M/UL (4.70-6.10) Hemoglobin 14.8 G/DL (14.2-18.0) Hematocrit 45.9 % (42.0-52.0) Mean Corpuscular Volume 94 FL (80-99) Mean Corpuscular Hemoglobin 30.2 PG (27.0-31.0) Mean Corpuscular Hemoglobin Concent 32.3 G/DL (32.0-36.0) Red Cell Distribution Width 13.3 % (11.6-14.8) Platelet Count 138 K/UL (150-450) L Mean Platelet Volume 8.3 FL (6.5-10.1) Neutrophils (%) (Auto) 58.6 % (45.0-75.0) Lymphocytes (%) (Auto) 30.3 % (20.0-45.0) Monocytes (%) (Auto) 8.5 % (1.0-10.0) Eosinophils (%) (Auto) 1.1 % (0.0-3.0) Basophils (%) (Auto) 1.5 % (0.0-2.0) Prothrombin Time 11.1 SEC (9.30-11.50) Prothromb Time International Ratio 1.0 (0.9-1.1) Activated Partial Thromboplast Time 22 SEC (23-33) L Sodium Level 143 MMOL/L (136-145) Potassium Level 3.3 MMOL/L (3.5-5.1) L Chloride Level 106 MMOL/L (98-107) Carbon Dioxide Level 23 MMOL/L (21-32) Anion Gap 14 mmol/L (5-15) Blood Urea Nitrogen 12 mg/dL (7-18) Creatinine 1.4 MG/DL (0.55-1.30) H Estimat Glomerular Filtration Rate > 60 mL/min (>60) Glucose Level 183 MG/DL (74-106) H Calcium Level 9.5 MG/DL (8.5-10.1) Total Bilirubin 1.2 MG/DL (0.2-1.0) H Direct Bilirubin 0.2 MG/DL (0.0-0.3) Aspartate Amino Transf (AST/SGOT) 71 U/L (15-37) H Alanine Aminotransferase (ALT/SGPT) 104 U/L (12-78) H Alkaline Phosphatase 139 U/L (46-116) H Total Creatine Kinase 188 U/L (26-308) Troponin I 0.000 ng/mL (0.000-0.056) C-Reactive Protein, Quantitative 1.6 mg/dL (0.00-0.90) H Pro-B-Type Natriuretic Peptide 100 pg/mL (0-125) Total Protein 7.7 G/DL (6.4-8.2) Albumin 3.8 G/DL (3.4-5.0) Globulin 3.9 g/dL Albumin/Globulin Ratio 1.0 (1.0-2.7) Lipase 241 U/L (73-393) POC Whole Blood Glucose 174 MG/DL (74-106) H Lactic Acid Level 3.80 mmol/L (0.4-2.0) H Urine Color Yellow Urine Appearance Slightly cloudy Urine pH 5 (4.5-8.0) Urine Specific [place] 1.025 (1.005-1.035) Urine Protein 2+ (NEGATIVE) H Urine Glucose (UA) Negative (NEGATIVE) Urine Ketones 1+ (NEGATIVE) H Urine Blood 2+ (NEGATIVE) H Urine Nitrite Negative (NEGATIVE) Urine Bilirubin Negative (NEGATIVE) Urine Urobilinogen Normal MG/DL (0.0-1.0) Urine Leukocyte Esterase 3+ (NEGATIVE) H Urine RBC 2-4 /HPF (0 - 0) H Urine WBC 40-60 /HPF (0 - 0) H Urine Squamous Epithelial Cells Occasional /LPF Urine Bacteria Many /HPF (NONE) H Urine Opiates Screen Negative (NEGATIVE) Urine Barbiturates Screen Negative (NEGATIVE) Phencyclidine (PCP) Screen Negative (NEGATIVE) Urine Amphetamines Screen Negative (NEGATIVE) Urine Benzodiazepines Screen Negative (NEGATIVE) Urine Cocaine Screen Negative (NEGATIVE) Urine Marijuana (THC) Screen Negative (NEGATIVE) Test 11/26/19 20:50 11/27/19 03:28 Lactic Acid Level 1.70 mmol/L (0.66-2.22) White Blood Count 7.6 K/UL (4.8-10.8) Red Blood Count 4.70 M/UL (4.70-6.10) Hemoglobin 13.9 G/DL (14.2-18.0) L Hematocrit 42.8 % (42.0-52.0) Mean Corpuscular Volume 91 FL (80-99) Mean Corpuscular Hemoglobin 29.6 PG (27.0-31.0) Mean Corpuscular Hemoglobin Concent 32.5 G/DL (32.0-36.0) Red Cell Distribution Width 12.8 % (11.6-14.8) Platelet Count 136 K/UL (150-450) L Mean Platelet Volume 8.0 FL (6.5-10.1) Neutrophils (%) (Auto) 47.5 % (45.0-75.0) Lymphocytes (%) (Auto) 38.7 % (20.0-45.0) Monocytes (%) (Auto) 11.8 % (1.0-10.0) H Eosinophils (%) (Auto) 1.2 % (0.0-3.0) Basophils (%) (Auto) 0.8 % (0.0-2.0) Sodium Level 148 MMOL/L (136-145) H Potassium Level 3.4 MMOL/L (3.5-5.1) L Chloride Level 112 MMOL/L (98-107) H Carbon Dioxide Level 26 MMOL/L (21-32) Anion Gap 11 mmol/L (5-15) Blood Urea Nitrogen 11 mg/dL (7-18) Creatinine 1.1 MG/DL (0.55-1.30) Estimat Glomerular Filtration Rate > 60 mL/min (>60) Glucose Level 116 MG/DL (74-106) H Hemoglobin A1c 7.3 % (4.3-6.0) H Uric Acid 6.9 MG/DL (2.6-7.2) Calcium Level 8.4 MG/DL (8.5-10.1) L Phosphorus Level 2.6 MG/DL (2.5-4.9) Magnesium Level 2.0 MG/DL (1.8-2.4) Total Bilirubin 0.9 MG/DL (0.2-1.0) Gamma Glutamyl Transpeptidase 32 U/L (5-85) Aspartate Amino Transf (AST/SGOT) 62 U/L (15-37) H Alanine Aminotransferase (ALT/SGPT) 89 U/L (12-78) H Alkaline Phosphatase 138 U/L (46-116) H Total Creatine Kinase 171 U/L (26-308) Troponin I 0.009 ng/mL (0.000-0.056) Pro-B-Type Natriuretic Peptide 97 pg/mL (0-125) Total Protein 6.7 G/DL (6.4-8.2) Albumin 3.3 G/DL (3.4-5.0) L Globulin 3.4 g/dL Albumin/Globulin Ratio 1.0 (1.0-2.7) Triglycerides Level 56 MG/DL (30-150) Cholesterol Level 133 MG/DL (< 200) LDL Cholesterol 68 mg/dL (<100) HDL Cholesterol 56 MG/DL (40-60) Cholesterol/HDL Ratio 2.4 (3.3-4.4) L Thyroid Stimulating Hormone (TSH) 3.785 uiU/mL (0.358-3.740) Free Thyroxine 1.12 NG/DL (0.76-1.46) Microbiology Date/Time Source Procedure Growth Status 11/26/19 16:35 Nasopharynx SARS-CoV-2 RdRp Gene Assay - Final Complete 11/26/19 17:40 Urine,Clean Catch Urine Culture - Preliminary Resulted Objective HEAD AND NECK: No JVD. LUNGS: Clear. CARDIOVASCULAR: Regular S1 and S2 with no gallop or murmur. ABDOMEN: Soft. EXTREMITIES: no pitting edema. Juan Carlos Orosco MD Nov 27, 2019 14:28
[2019-11-27] MEDS ORDERED: cefTRIAXone 1 GM in D5W 55 ML IVPB SCH (18:00)
[2019-11-27] MEDS: Tamsulosin 0.4mg cap ORAL SCH (20:23)
[2019-11-28] VITALS: BP 122/86
[2019-11-28] MEDS: Hydromorphone 0.5mg/0.5ml inj IVP PRN ×2 (03:34→06:34)
[2019-11-28 04:00] VITALS: BP 120/74
[2019-11-28 07:52] LABS: ALANINE AMINOTRANSFERASE 105 U/L (12-78); ALBUMIN 3.2 G/DL (3.4-5.0); ALBUMIN/GLOBULIN RATIO 0.9 (1.0-2.7); ALKALINE PHOSPHATASE 122 U/L (46-116); ANION GAP 9 mmol/L (5-15); ASPARTATE AMINO TRANSFERASE 65 U/L (15-37); BILIRUBIN,TOTAL 0.8 MG/DL (0.2-1.0); BLOOD UREA NITROGEN 14 mg/dL (7-18); CALCIUM 9.4 MG/DL (8.5-10.1); CARBON DIOXIDE 23 MMOL/L (21-32); CHLORIDE 109 MMOL/L (98-107); CREATININE 1.1 MG/DL (0.55-1.30); GAMMA GLUTAMYL TRANSPEPTIDASE 34 U/L (5-85); PHOSPHORUS 2.2 MG/DL (2.5-4.9); POTASSIUM 4.1 MMOL/L (3.5-5.1); SODIUM 141 MMOL/L (136-145)
[2019-11-28 08:00] VITALS: BP 127/71
--- NOTE | 2019-11-28 08:01 | Consultation ---
DATE OF CONSULTATION: 11/27/2019 INFECTIOUS DISEASE CONSULTATION CONSULTING PHYSICIAN: Jesse Maddox MD. PRIMARY ATTENDING PHYSICIAN: Rafaela Roy MD. REASON FOR CONSULTATION: Pyuria, elevated transaminase level, UTI. HISTORY OF PRESENT ILLNESS: This is a 74-year-old male admitted yesterday from home complaining of dizziness and headache with radiation of the pain to the upper neck, chest, and lower body on the left side and difficulty of standing because of weakness. PAST MEDICAL HISTORY: Significant for paroxysmal AFib status post ablation in 2018, hypertension, obesity, right MCA CVA, left total knee replacement, thoracic aortic aneurysm repair in 2015, he is also status post bioprosthetic aortic valve, osteoarthritis, and thalamic pain syndrome. ALLERGIES: Allergic to Tylenol, codeine, diphenhydramine, fish-containing products, gabapentin, ibuprofen, ketorolac, morphine, nitroglycerin. CURRENT MEDICATIONS: He is getting hydromorphone, naloxone, amlodipine, atenolol, [place], tramadol. Got a dose of ceftriaxone in the ER. SOCIAL HISTORY: Single. Lives alone. Denies alcohol, drug abuse, or smoking. REVIEW OF SYSTEMS: No fever. He has left-sided headache with radiation to the neck. No coughing. No shortness of breath. No nausea. No vomiting. No diarrhea. No dysuria. No abdominal pain. PHYSICAL EXAMINATION: VITAL SIGNS: Temperature 98.1, pulse 63, blood pressure 135/80. GENERAL APPEARANCE: No acute distress. Well developed. HEAD AND NECK: Loose upper dentures. No teeth in the lower jaw. Slightly whitish tongue. HEART: Normal rate. LUNGS: Clear. ABDOMEN: Soft, nontender. EXTREMITIES: No edema. LABORATORY AND DIAGNOSTIC DATA: COVID-19 test was negative. Urine toxicology was negative. WBC 7.3, hemoglobin 13.9, hematocrit 42.8, and platelet 136,000. Sodium 148, potassium 3.4, chloride 112, bicarb 26, BUN 11, creatinine 1.1, and glucose is 116. Lactic acid was elevated to 3.8 at the time of admission. Hemoglobin A1c 7.3. AST 62, ALT 89, alkaline phosphatase 138. UA showed wbc of 40-60, leukocyte esterase 3+, bacteria many, nitrite negative. Chest x-ray, low lung volumes and bronchoalveolar crowding, unchanged aortic endograft beginning in the arch extending to descending thoracic aorta. CT scan of the head showed chronic changes including a small area of encephalomalacia. IMPRESSION: Pyuria, UTI. The patient has elevated transaminase, lactic acidosis at the time of admission, headache, chest pain, chronic pain syndrome, hypertension, and old CVA. RECOMMENDATION: May benefit from short-term of antibiotic. We will start on Rocephin. We will follow up the cultures. We will follow up abdominal ultrasound. At the end of my exam, I thank Dr. Roy for involving me in the care of this patient. Jesse Maddox M.D. DR: ARIELLA JOB#: [id number] CC: JOSEPH
--- NOTE | 2019-11-28 08:01 | Consultation ---
DATE OF CONSULTATION: 11/27/2019 GASTROENTEROLOGY CONSULTATION CONSULTING PHYSICIAN: Chris Murphy MD REFERRING PHYSICIAN: Rafaela Roy MD CHIEF COMPLAINT: I was asked to see this patient by Dr. Rafaela Roy for evaluation of abnormal liver tests. HISTORY OF PRESENT ILLNESS: The patient is a 74-year-old white man with multiple chronic cardiac issues as well as some history of prior strokes with left-sided weakness, who comes into the hospital due to chest pain. His cardiac history is outlined extensively in the academic advisor's notes. Briefly, he has had a history of hypertension and paroxysmal atrial fibrillation. He is status post ablation in 2018 and has had a history of coronary artery disease as well as aortic aneurysm repair. The patient in addition has had a history of stroke with left-sided weakness. He has had a documented right middle cerebral artery thromboembolic stroke. He came to the hospital on this occasion complaining of chest pain and weakness in the left upper extremity, although the latter may be an old finding in this patient. The patient also has abnormal liver tests of unclear etiology. He denies any previous history of hepatitis. He has no fatty food intolerance and no abdominal pain. He does not use any drugs. PAST MEDICAL HISTORY: Hypertension, paroxysmal atrial fibrillation, aortic dissection, status post bioprosthetic valve replacement, and aortic aneurysm repair of the right middle cerebral artery thromboembolic stroke with left upper extremity weakness. FAMILY HISTORY: Noncontributory. SOCIAL HISTORY: The patient lives at home. He does not smoke or drink alcohol. REVIEW OF SYSTEMS: Otherwise negative. PHYSICAL EXAMINATION: GENERAL: Well-developed, well-nourished white man seen in his room. HEENT: Normocephalic and atraumatic. Sclerae anicteric. Oropharynx clear. NECK: Supple. CHEST: Clear to auscultation. CARDIOVASCULAR: Revealed regular rate. ABDOMEN: Soft, nontender. Good bowel sounds. EXTREMITIES: Revealed no edema. NEUROLOGIC: Notable for left upper extremity weakness. LABORATORY DATA: Noted. ASSESSMENT: This patient presents with abnormal liver tests of unclear etiology. Differential diagnoses most notably include false-positive test, which is actually due to heart attacks and strokes. In addition, hepatitis serologies can be checked for hepatitis B and C in addition to the other pathogens such as CMV or herpes or mono. The patient's liver tests can be followed for now and oral intake can be given as needed and tolerated. The patient is okay from a GI standpoint to receive anticoagulation or antiplatelet agents. RECOMMENDATIONS: Per above discussion and per orders written in the chart. Thank you for asking me to participate in the care of this patient. Chris Murphy M.D. DR: Heidi JOB#: [id number] CC:
--- NOTE | 2019-11-28 08:25 | History and Physical Report ---
DATE OF ADMISSION: 11/26/2019 HISTORY OF PRESENT ILLNESS: Patient is having transient headache. Patient admitted with chest pain, rule out acute coronary syndrome. Patient also had left-sided chest pain and headache. He also complained of numbness and weakness on the left side of the body that started yesterday. Patient has been admitted for UTI as well as elevated LFTs as well as for left-sided weakness, rule out TIA, as well as for hypokalemia. Patient has left-sided facial numbness with left-sided weakness and headache for 1 day and the patient's chest pain was radiating to the shoulder and back. Patient denies nausea, vomiting, or diarrhea. Denies shortness of breath. Denies cough. Denies fever or chills. PAST MEDICAL HISTORY: Significant for hypertension, paroxysmal atrial fibrillation, CAD, somatization disorder, history of left total knee replacement, history of laminectomy, history of CVA, arthritis, anxiety, chronic pain syndrome, history of aortic aneurysm, GERD. PAST SURGICAL HISTORY: Stent, left hip surgery, left knee surgery, laminectomy, CABG, aortic aneurysm repair, left total knee replacement. ALLERGIES: The patient has multiple allergies and includes Tylenol, codeine, diphenhydramine, fish-containing products, gabapentin, ibuprofen, ketorolac, morphine, nitroglycerin, . FAMILY HISTORY: Noncontributory. SOCIAL HISTORY: Patient denies history of smoking. Denies history of alcohol or illicit drugs. REVIEW OF SYSTEMS: HEENT: Denies headaches. RESPIRATORY: Denies shortness of breath. Denies cough. CARDIOVASCULAR: Does have chest pain that radiates to the left shoulder, extreme for 2 days. GASTROINTESTINAL: Denies nausea, vomiting, or diarrhea. EXTREMITIES: Denies pain in lower extremities. CENTRAL NERVOUS SYSTEM: Does have left-sided weakness and headache and left-sided facial numbness for 1 day. PHYSICAL EXAMINATION: VITAL SIGNS: Temperature 97.5, pulse is 66, blood pressure is 135/70. HEENT: PERRLA. NECK: Supple. No lymphadenopathy. CHEST: Clear to auscultation. CARDIOVASCULAR: Regular rate and rhythm. No murmurs or extra sounds. GASTROINTESTINAL: Soft. Distended. Positive bowel sounds. No organomegaly. EXTREMITIES: 1+ edema. Reflexes on both sides. Moves all four extremities. LABORATORY DATA: WBC of 9.2, hemoglobin 14.8, platelets 138. Sodium 148, potassium 3.4. ASSESSMENT AND PLAN: Chest pain, electrolyte imbalance, rule out TIA, high risk for acute coronary syndrome as well as TIA versus CVA. I have asked Dr. Murphy, Dr. Jeses Maddox, Dr. Qureshi, Dr. Linn, Dr. Gracia, and Dr. Orosco see the patient for the above-mentioned abnormalities and symptoms and the management of the above-mentioned abnormalities. Rafaela Roy M.D. DR: JAVED JOB#: [id number] CC:
--- NOTE | 2019-11-28 08:55 | General Progress Note ---
Assessment/Plan Assessment/Plan: (1) Hemiplegia, flaccid, nondominant side (2) Lumbar post-laminectomy syndrome (3) HO TKR (total knee replacement) (4) OA (osteoarthritis) of knee (5) Thalamic pain syndrome (6) CVA (cerebral vascular accident) We will continue Winston, [place] and Dilaudid changed to 1mg IV Q4H PRN P/w Dr. Lnin and Dr. Linn concurred. Subjective Date patient seen: Nov 28, 2019 Time patient seen: 08:45 - am Allergies: Coded Allergies: MORPHINE (Verified Allergy, Severe, 11/07/10) NITROGLYCERIN (Verified Allergy, Severe, 11/07/10) KETOROLAC (Unverified Allergy, Intermediate, 03/14/14) FISH CONTAINING PRODUCTS (Verified Allergy, Mild, 07/20/14) per patient, "it knocks me out" ACETAMINOPHEN (Unverified Allergy, Unknown, 07/19/14) CODEINE (Unverified Allergy, Unknown, 11/03/13) UNKNOWN DIPHENHYDRAMINE (Unverified Allergy, Unknown, 09/30/14) IBUPROFEN (Unverified Allergy, Unknown, 11/03/13) UNKNOWN PROCHLORPERAZINE (Unverified Allergy, Unknown, 07/19/14) GABAPENTIN (Verified Adverse Reaction, Intermediate, 07/20/14) Per patient, it makes him sweat, throws up, and "blacks out" Subjective Constitutional: Denies: no symptoms, chills, diaphoresis, fever, malaise, weakness, other HEENT: Denies: no symptoms, eye pain, blurred vision, tearing, double vision, ear pain, ear discharge, nose pain, nose congestion, throat pain, throat swelling, mouth pain, mouth swelling, other Cardiovascular: Denies: no symptoms, chest pain, edema, irregular heart rate, lightheadedness, palpitations, syncope, other Respiratory: Denies: no symptoms, cough, orthopnea, shortness of breath, SOB with excertion, SOB at rest, sputum, stridor, wheezing, other Gastrointestinal/Abdominal: Denies: no symptoms, abdomen distended, abdominal pain, black stools, tarry stools, blood in stool, constipated, diarrhea, difficulty swallowing, nausea, poor appetite, poor fluid intake, rectal bleeding , vomiting, other Genitourinary: Denies: no symptoms, burning, discharge, frequency, flank pain, hematuria, incontinence, pain, urgency, other Neurologic/Psychiatric: Denies: no symptoms, anxiety, depressed, emotional problems, headache, numbness, paresthesia, pre-existing deficit, seizure, tingling, tremors, weakness, other Endocrine: Denies: no symptoms, excessive sweating, flushing, intolerance to cold, intolerance to heat, increased hunger, increased thirst, increased urine, unexplained weight gain, unexplained weight loss, other Hematologic/Lymphatic: Denies: no symptoms, anemia, easy bleeding, easy bruising, other SUBJECTIVE: Patient is in bed no signs of pain or distress. Having used 7 doses of Dilaudid and 2 Doses of Winston. Pain still is severe as per patient, and says he has felt little relief with the Dilaudid at current strength. Objective Last 24 Hour Vital Signs Date Time Temp Pulse Resp B/P (MAP) Pulse Ox O2 Delivery O2 Flow Rate FiO2 11/28/19 07:07 97.4 11/28/19 04:00 58 11/28/19 04:00 97.4 58 17 120/74 (89) 96 11/28/19 03:11 Room Air 11/28/19 00:00 96.5 58 18 122/86 (98) 97 11/28/19 00:00 65 11/28/19 00:00 Room Air 11/27/19 20:24 72 125/90 11/27/19 20:00 96.0 72 19 125/90 (102) 96 11/27/19 20:00 Room Air 11/27/19 20:00 70 11/27/19 19:50 97.5 11/27/19 16:00 66 11/27/19 16:00 Room Air 11/27/19 16:00 97.5 67 18 135/75 (95) 96 11/27/19 12:50 61 11/27/19 11:53 Room Air 11/27/19 11:52 97.7 67 18 125/73 (90) 96 11/27/19 09:58 63 135/80 11/27/19 09:57 63 135/80 Intake and Output 11/27/19 11/28/19 19:00 07:00 Intake Total 240 ml 480 ml Output Total 450 ml 700 ml Balance -210 ml -220 ml Intake Oral 240 ml 480 ml Output Urine Total 450 ml 700 ml # Voids 2 # Bowel Movements 4 Laboratory Tests 11/28/19 06:42: Sodium Level 141, Potassium Level 4.1, Chloride Level 109H, Carbon Dioxide Level 23, Anion Gap 9, Blood Urea Nitrogen 14, Creatinine 1.1, Estimat Glomerular Filtration Rate > 60, Glucose Level 117H, Calcium Level 9.4, Phosphorus Level 2.2L, Magnesium Level 2.1, Total Bilirubin 0.8, Gamma Glutamyl Transpeptidase 34, Aspartate Amino Transf (AST/SGOT) 65H, Alanine Aminotransferase (ALT/SGPT) 105H, Alkaline Phosphatase 122H, C-Reactive Protein , Quantitative 0.7, Pro-B-Type Natriuretic Peptide 203H, Total Protein 6.6, Albumin 3.2L, Globulin 3.4, Albumin/Globulin Ratio 0.9L, Hepatitis A IgM Antibody [Pending], Hepatitis B Surface Antigen [Pending], Hepatitis B Core IgM Antibody [Pending], Hepatitis C Antibody [Pending] Height (Feet): 6 Height (Inches): 4.00 Weight (Pounds): 230 Objective General Appearance: no apparent distress, alert EENT: PERRL/EOMI, TMs normal Neck: non-tender, normal alignment, supple Cardiovascular: normal rate, regular rhythm Respiratory/Chest: chest wall non-tender, lungs clear Abdomen: non tender, soft Extremities: non-tender Edema: no edema noted Arm (L), no edema noted Arm (R), no edema noted Leg (L), no edema noted Leg (R), no edema noted Pedal (L), no edema noted Pedal (R), no edema noted Generalized Neurologic: alert, oriented x 3 Skin: normal pigmentation Fabiano Loza Nov 28, 2019 08:55
[2019-11-28] MEDS: Docusate 100mg cap ORAL SCH ×3 (09:36→17:57)
[2019-11-28] MEDS: HYDROmorphone 1mg/ml Carpuject IVP PRN ×4 (09:38→22:08)
--- NOTE | 2019-11-28 10:00 | Cardiac Electrophysiology PN ---
Assessment/Plan Assessment/Plan 1. Chest pain. The patient with history of coronary artery disease. EKG demonstrates no acute ischemic changes. Ruled out for PR Echo EF 50% 2. Paroxysmal atrial fibrillation, status post ablation in 2018, in sinus rhythm. Continue Eliquis for anticoagulation. 3. Status post bioprosthetic aortic valve replacement. 4. Status post thoracic aortic aneurysm repair. 5. Diabetes. 6. The patient's urine toxic screen is also negative. Subjective Subjective In SR on tele. Asking for pain meds.No SOB in SR with LAFB, PVC Objective Last 24 Hour Vital Signs Date Time Temp Pulse Resp B/P (MAP) Pulse Ox O2 Delivery O2 Flow Rate FiO2 11/28/19 09:36 67 127/71 11/28/19 09:36 67 127/71 11/28/19 07:07 97.4 11/28/19 04:00 58 11/28/19 04:00 97.4 58 17 120/74 (89) 96 11/28/19 03:11 Room Air 11/28/19 00:00 96.5 58 18 122/86 (98) 97 11/28/19 00:00 65 11/28/19 00:00 Room Air 11/27/19 20:24 72 125/90 11/27/19 20:00 96.0 72 19 125/90 (102) 96 11/27/19 20:00 Room Air 11/27/19 20:00 70 11/27/19 19:50 97.5 11/27/19 16:00 66 11/27/19 16:00 Room Air 11/27/19 16:00 97.5 67 18 135/75 (95) 96 11/27/19 12:50 61 11/27/19 11:53 Room Air 11/27/19 11:52 97.7 67 18 125/73 (90) 96 Intake and Output 11/27/19 11/28/19 19:00 07:00 Intake Total 240 ml 480 ml Output Total 450 ml 700 ml Balance -210 ml -220 ml Intake Oral 240 ml 480 ml Output Urine Total 450 ml 700 ml # Voids 2 # Bowel Movements 4 Laboratory Tests Test 11/28/19 06:42 Sodium Level 141 MMOL/L (136-145) Potassium Level 4.1 MMOL/L (3.5-5.1) Chloride Level 109 MMOL/L (98-107) H Carbon Dioxide Level 23 MMOL/L (21-32) Anion Gap 9 mmol/L (5-15) Blood Urea Nitrogen 14 mg/dL (7-18) Creatinine 1.1 MG/DL (0.55-1.30) Estimat Glomerular Filtration Rate > 60 mL/min (>60) Glucose Level 117 MG/DL (74-106) H Calcium Level 9.4 MG/DL (8.5-10.1) Phosphorus Level 2.2 MG/DL (2.5-4.9) L Magnesium Level 2.1 MG/DL (1.8-2.4) Total Bilirubin 0.8 MG/DL (0.2-1.0) Gamma Glutamyl Transpeptidase 34 U/L (5-85) Aspartate Amino Transf (AST/SGOT) 65 U/L (15-37) H Alanine Aminotransferase (ALT/SGPT) 105 U/L (12-78) H Alkaline Phosphatase 122 U/L (46-116) H C-Reactive Protein, Quantitative 0.7 mg/dL (0.00-0.90) Pro-B-Type Natriuretic Peptide 203 pg/mL (0-125) H Total Protein 6.6 G/DL (6.4-8.2) Albumin 3.2 G/DL (3.4-5.0) L Globulin 3.4 g/dL Albumin/Globulin Ratio 0.9 (1.0-2.7) L Hepatitis A IgM Antibody Pending Hepatitis B Surface Antigen Pending Hepatitis B Core IgM Antibody Pending Hepatitis C Antibody Pending Microbiology Date/Time Source Procedure Growth Status 11/26/19 16:35 Nasopharynx SARS-CoV-2 RdRp Gene Assay - Final Complete 11/26/19 17:40 Urine,Clean Catch Urine Culture - Preliminary Gram Negative Bacillus 1 Resulted Objective HEAD AND NECK: No JVD. LUNGS: Clear. CARDIOVASCULAR: Regular S1 and S2 with no gallop or murmur. ABDOMEN: Soft. EXTREMITIES: no pitting edema. Juan Carlos Orosco MD Nov 28, 2019 10:00
--- NOTE | 2019-11-28 10:38 | Infectious Diseases Prog Note ---
Assessment/Plan Assessment/Plan IMPRESSION: Pyuria,doubt UTI,[place] [id number] [place] [id number] Elevated transaminase, Lactic acidosis resolved headache, Atypical chest pain, Chronic pain syndrome, Hypertension, Old CVA. RECOMMENDATION: Discontinue Rocephin Observe off antibiotic Subjective ROS Limited/Unobtainable: No Constitutional: Reports: no symptoms HEENT: Reports: other - left side heaache Respiratory: Reports: no symptoms Cardiovascular: Reports: chest pain, other - radiation of pain from head Gastrointestinal/Abdominal: Reports: no symptoms Genitourinary: Reports: no symptoms Allergies: Coded Allergies: MORPHINE (Verified Allergy, Severe, 11/07/10) NITROGLYCERIN (Verified Allergy, Severe, 11/07/10) KETOROLAC (Unverified Allergy, Intermediate, 03/14/14) FISH CONTAINING PRODUCTS (Verified Allergy, Mild, 07/20/14) per patient, "it knocks me out" ACETAMINOPHEN (Unverified Allergy, Unknown, 07/19/14) CODEINE (Unverified Allergy, Unknown, 11/03/13) UNKNOWN DIPHENHYDRAMINE (Unverified Allergy, Unknown, 09/30/14) IBUPROFEN (Unverified Allergy, Unknown, 11/03/13) UNKNOWN PROCHLORPERAZINE (Unverified Allergy, Unknown, 07/19/14) GABAPENTIN (Verified Adverse Reaction, Intermediate, 07/20/14) Per patient, it makes him sweat, throws up, and "blacks out" Objective Last 24 Hour Vital Signs Date Time Temp Pulse Resp B/P (MAP) Pulse Ox O2 Delivery O2 Flow Rate FiO2 11/28/19 09:36 67 127/71 11/28/19 09:36 67 127/71 11/28/19 08:00 97.5 66 18 127/71 (89) 97 11/28/19 08:00 Room Air 11/28/19 08:00 66 11/28/19 07:07 97.4 11/28/19 04:00 58 11/28/19 04:00 97.4 58 17 120/74 (89) 96 11/28/19 03:11 Room Air 11/28/19 00:00 96.5 58 18 122/86 (98) 97 11/28/19 00:00 65 11/28/19 00:00 Room Air 11/27/19 20:24 72 125/90 11/27/19 20:00 96.0 72 19 125/90 (102) 96 11/27/19 20:00 Room Air 11/27/19 20:00 70 11/27/19 19:50 97.5 11/27/19 16:00 66 11/27/19 16:00 Room Air 11/27/19 16:00 97.5 67 18 135/75 (95) 96 11/27/19 12:50 61 11/27/19 11:53 Room Air 11/27/19 11:52 97.7 67 18 125/73 (90) 96 Height (Feet): 6 Height (Inches): 4.00 Weight (Pounds): 230 General Appearance: no acute distress HEENT: mucous membranes moist Respiratory/Chest: lungs clear, other - scar of throracotomy Cardiovascular: normal rate Abdomen: soft, non tender, other - obese Extremities: no edema, other - scar of left knee surgery Neurologic/Psychiatric: alert, oriented x 3, responsive Microbiology Date/Time Source Procedure Growth Status 11/26/19 16:35 Nasopharynx SARS-CoV-2 RdRp Gene Assay - Final Complete 11/26/19 17:40 Urine,Clean Catch Urine Culture - Preliminary Gram Negative Bacillus 1 Resulted Laboratory Tests Test 11/28/19 06:42 Sodium Level 141 MMOL/L (136-145) Potassium Level 4.1 MMOL/L (3.5-5.1) Chloride Level 109 MMOL/L (98-107) H Carbon Dioxide Level 23 MMOL/L (21-32) Anion Gap 9 mmol/L (5-15) Blood Urea Nitrogen 14 mg/dL (7-18) Creatinine 1.1 MG/DL (0.55-1.30) Estimat Glomerular Filtration Rate > 60 mL/min (>60) Glucose Level 117 MG/DL (74-106) H Calcium Level 9.4 MG/DL (8.5-10.1) Phosphorus Level 2.2 MG/DL (2.5-4.9) L Magnesium Level 2.1 MG/DL (1.8-2.4) Total Bilirubin 0.8 MG/DL (0.2-1.0) Gamma Glutamyl Transpeptidase 34 U/L (5-85) Aspartate Amino Transf (AST/SGOT) 65 U/L (15-37) H Alanine Aminotransferase (ALT/SGPT) 105 U/L (12-78) H Alkaline Phosphatase 122 U/L (46-116) H C-Reactive Protein, Quantitative 0.7 mg/dL (0.00-0.90) Pro-B-Type Natriuretic Peptide 203 pg/mL (0-125) H Total Protein 6.6 G/DL (6.4-8.2) Albumin 3.2 G/DL (3.4-5.0) L Globulin 3.4 g/dL Albumin/Globulin Ratio 0.9 (1.0-2.7) L Hepatitis A IgM Antibody Pending Hepatitis B Surface Antigen Pending Hepatitis B Core IgM Antibody Pending Hepatitis C Antibody Pending Current Medications Medications (Trade) Dose Ordered Sig/Sheba Route PRN Reason Start Time Stop Time Status Last Admin Dose Admin Acetaminophen/ Hydrocodone Bitart ([place] 10/325) 1 tab Q4H PRN ORAL Severe Pain (Pain Scale 7-10) 11/27/19 09:00 12/04/19 08:59 11/27/19 18:26 Amlodipine Besylate (Norvasc) 10 mg DAILY ORAL 11/27/19 09:00 12/27/19 08:59 11/28/19 09:36 Atenolol (Tenormin) 50 mg Q12HR ORAL 11/27/19 09:00 12/26/19 21:44 11/28/19 09:36 Barium Sulfate (Varibar Honey) 250 ml NOW PRN MC RAD 11/27/19 08:15 11/30/19 08:02 Barium Sulfate (Varibar [place]) 240 ml NOW PRN MC RAD 11/27/19 08:15 11/30/19 08:02 Barium Sulfate (Varibar Pudding) 230 ml NOW PRN MC RAD 11/27/19 08:15 11/30/19 08:02 Barium Sulfate (Varibar Thin Liquid powder) 148 gm NOW PRN MC RAD 11/27/19 08:15 11/30/19 08:02 Ceftriaxone Sodium 1 gm/ Dextrose 55 ml @ 110 mls/hr Q24H IVPB 11/27/19 18:00 12/04/19 17:59 11/27/19 17:26 Docusate Sodium (Colace) 100 mg THREE TIMES A DAY ORAL 11/27/19 09:00 12/27/19 08:59 11/28/19 09:36 Hydromorphone HCl (Dilaudid) 1 mg Q4H PRN IVP Severe [place] Pain (>7) 11/28/19 09:08 12/05/19 09:07 11/28/19 09:38 Naloxone HCl (Narcan) 0.2 mg Q2M PRN IVP RR<8/min 11/27/19 09:15 02/25/20 09:14 Pantoprazole (Protonix) 40 mg EVERY 12 HOURS ORAL 11/26/19 21:45 12/26/19 21:44 11/28/19 09:35 Potassium Chloride (K-Dur) 40 meq BID ORAL 11/27/19 09:00 02/25/20 08:59 11/28/19 09:37 Sodium Chloride 1,000 ml @ 50 mls/hr Q20H IV 11/26/19 22:00 12/26/19 21:59 11/27/19 17:02 Tamsulosin HCl (Flomax) 0.4 mg BEDTIME ORAL 11/27/19 21:00 12/27/19 20:59 11/27/19 20:23 Tramadol HCl (Ultram) 100 mg Q6H PRN ORAL Moderate Pain (Pain Scale 4-6) 11/27/19 09:00 12/04/19 08:59 Jesse Maddox MD Nov 28, 2019 10:38
--- NOTE | 2019-11-28 11:49 | Neurology Progress Note ---
Interim History Interim History ROS Limited/Unobtainable: No Interim History patient is without change.wants more pain meds Objective Physical Exam Last Vital Signs Date Time Temp Pulse Resp B/P (MAP) Pulse Ox O2 Delivery O2 Flow Rate FiO2 11/28/19 09:36 67 127/71 11/28/19 08:00 97.5 18 97 11/28/19 08:00 Room Air Laboratory Tests Test 11/28/19 06:42 Sodium Level 141 MMOL/L (136-145) Potassium Level 4.1 MMOL/L (3.5-5.1) Chloride Level 109 MMOL/L (98-107) H Carbon Dioxide Level 23 MMOL/L (21-32) Anion Gap 9 mmol/L (5-15) Blood Urea Nitrogen 14 mg/dL (7-18) Creatinine 1.1 MG/DL (0.55-1.30) Estimat Glomerular Filtration Rate > 60 mL/min (>60) Glucose Level 117 MG/DL (74-106) H Calcium Level 9.4 MG/DL (8.5-10.1) Phosphorus Level 2.2 MG/DL (2.5-4.9) L Magnesium Level 2.1 MG/DL (1.8-2.4) Total Bilirubin 0.8 MG/DL (0.2-1.0) Gamma Glutamyl Transpeptidase 34 U/L (5-85) Aspartate Amino Transf (AST/SGOT) 65 U/L (15-37) H Alanine Aminotransferase (ALT/SGPT) 105 U/L (12-78) H Alkaline Phosphatase 122 U/L (46-116) H C-Reactive Protein, Quantitative 0.7 mg/dL (0.00-0.90) Pro-B-Type Natriuretic Peptide 203 pg/mL (0-125) H Total Protein 6.6 G/DL (6.4-8.2) Albumin 3.2 G/DL (3.4-5.0) L Globulin 3.4 g/dL Albumin/Globulin Ratio 0.9 (1.0-2.7) L Hepatitis A IgM Antibody Pending Hepatitis B Surface Antigen Pending Hepatitis B Core IgM Antibody Pending Hepatitis C Antibody Pending Jl Qureshi MD Nov 28, 2019 11:49
--- NOTE | 2019-11-28 11:55 | Neurology Progress Note ---
Interim History Interim History ROS Limited/Unobtainable: No Objective Physical Exam Last Vital Signs Date Time Temp Pulse Resp B/P (MAP) Pulse Ox O2 Delivery O2 Flow Rate FiO2 11/28/19 09:36 67 127/71 11/28/19 08:00 97.5 18 97 11/28/19 08:00 Room Air Laboratory Tests Test 11/28/19 06:42 Sodium Level 141 MMOL/L (136-145) Potassium Level 4.1 MMOL/L (3.5-5.1) Chloride Level 109 MMOL/L (98-107) H Carbon Dioxide Level 23 MMOL/L (21-32) Anion Gap 9 mmol/L (5-15) Blood Urea Nitrogen 14 mg/dL (7-18) Creatinine 1.1 MG/DL (0.55-1.30) Estimat Glomerular Filtration Rate > 60 mL/min (>60) Glucose Level 117 MG/DL (74-106) H Calcium Level 9.4 MG/DL (8.5-10.1) Phosphorus Level 2.2 MG/DL (2.5-4.9) L Magnesium Level 2.1 MG/DL (1.8-2.4) Total Bilirubin 0.8 MG/DL (0.2-1.0) Gamma Glutamyl Transpeptidase 34 U/L (5-85) Aspartate Amino Transf (AST/SGOT) 65 U/L (15-37) H Alanine Aminotransferase (ALT/SGPT) 105 U/L (12-78) H Alkaline Phosphatase 122 U/L (46-116) H C-Reactive Protein, Quantitative 0.7 mg/dL (0.00-0.90) Pro-B-Type Natriuretic Peptide 203 pg/mL (0-125) H Total Protein 6.6 G/DL (6.4-8.2) Albumin 3.2 G/DL (3.4-5.0) L Globulin 3.4 g/dL Albumin/Globulin Ratio 0.9 (1.0-2.7) L Hepatitis A IgM Antibody Pending Hepatitis B Surface Antigen Pending Hepatitis B Core IgM Antibody Pending Hepatitis C Antibody Pending General: well nourished Head: other - obese Impression/Recommendations Status: not improved - patient not cooperative Diagnostic Impression embolic cva, will start eliquis 2.5 bid,stool for blood,ct-angiogram brain and neck Jl Qureshi MD Nov 28, 2019 11:55
[2019-11-28 12:00] VITALS: BP 106/70
[2019-11-28] MEDS ORDERED: FELODIPINE ER5 MG PO (12:23)
[2019-11-28] MEDS ORDERED: LABETALOL HCL200 MG ORAL (12:23)
--- NOTE | 2019-11-28 14:27 | Nephrology Progress Note ---
Assessment/Plan Problem List: (1) MARLY (acute kidney injury) (2) Proteinuria (3) HTN (hypertension) (4) Paroxysmal atrial fibrillation Assessment 74 years old male with multiple risk factors for coronary artery disease: Serum creatinine 1.4, renal disease most likely multifactorial. Proteinuria Chest pain with history of coronary artery disease Paroxysmal atrial fibrillation, ablation in 2018. Continues on Eliquis Status post bioprosthetic aortic valve replacement Status post thoracic aorta aneurysm repair Diabetes mellitus UTI, elevated lactic acid level Hypertension Elevated LFTs Plan Blood pressure medication Keep the blood sugar in check 2D echocardiogram, results pending Antibiotics, avoid nephrotoxic's Monitor liver enzymes Potassium supplements as needed Per orders Subjective ROS Limited/Unobtainable: No Constitutional: Reports: malaise, weakness Objective Objective Last 24 Hour Vital Signs Date Time Temp Pulse Resp B/P (MAP) Pulse Ox O2 Delivery O2 Flow Rate FiO2 11/28/19 09:36 67 127/71 11/28/19 09:36 67 127/71 11/28/19 08:00 97.5 66 18 127/71 (89) 97 11/28/19 08:00 Room Air 11/28/19 08:00 66 11/28/19 07:07 97.4 11/28/19 04:00 58 11/28/19 04:00 97.4 58 17 120/74 (89) 96 11/28/19 03:11 Room Air 11/28/19 00:00 96.5 58 18 122/86 (98) 97 11/28/19 00:00 65 11/28/19 00:00 Room Air 11/27/19 20:24 72 125/90 11/27/19 20:00 96.0 72 19 125/90 (102) 96 11/27/19 20:00 Room Air 11/27/19 20:00 70 11/27/19 19:50 97.5 11/27/19 16:00 66 11/27/19 16:00 Room Air 11/27/19 16:00 97.5 67 18 135/75 (95) 96 Intake and Output 11/27/19 11/28/19 19:00 07:00 Intake Total 240 ml 480 ml Output Total 450 ml 700 ml Balance -210 ml -220 ml Intake Oral 240 ml 480 ml Output Urine Total 450 ml 700 ml # Voids 2 # Bowel Movements 4 Laboratory Tests 11/28/19 06:42: Sodium Level 141, Potassium Level 4.1, Chloride Level 109H, Carbon Dioxide Level 23, Anion Gap 9, Blood Urea Nitrogen 14, Creatinine 1.1, Estimat Glomerular Filtration Rate > 60, Glucose Level 117H, Calcium Level 9.4, Phosphorus Level 2.2L, Magnesium Level 2.1, Total Bilirubin 0.8, Gamma Glutamyl Transpeptidase 34, Aspartate Amino Transf (AST/SGOT) 65H, Alanine Aminotransferase (ALT/SGPT) 105H, Alkaline Phosphatase 122H, C-Reactive Protein , Quantitative 0.7, Pro-B-Type Natriuretic Peptide 203H, Total Protein 6.6, Albumin 3.2L, Globulin 3.4, Albumin/Globulin Ratio 0.9L, Hepatitis A IgM Antibody [Pending], Hepatitis B Surface Antigen [Pending], Hepatitis B Core IgM Antibody [Pending], Hepatitis C Antibody [Pending] Height (Feet): 6 Height (Inches): 4.00 Weight (Pounds): 230 General Appearance: no apparent distress Cardiovascular: normal rate Respiratory/Chest: decreased breath sounds Abdomen: soft Jose Gracia MD Nov 28, 2019 14:27
[2019-11-28] MEDS ORDERED: 1/2 NS 1000ml IV ONE (15:56)
[2019-11-28] MEDS ORDERED: NS 275ml ONE (15:56)
[2019-11-28] MEDS ORDERED: Tubing IV Secondary IV ONE (15:56)
[2019-11-28 16:00] VITALS: BP 128/76
--- NOTE | 2019-11-28 17:15 | Consultation ---
DATE OF CONSULTATION: 11/27/2019 NEUROLOGICAL CONSULTATION CONSULTING PHYSICIAN: Jl Qureshi MD CHIEF COMPLAINT: This is of several [facility] admissions for this 74-year-old right-handed man with a history of hypertension, paroxysmal atrial fibrillation, status post ablation in , coronary artery disease stent, history of aortic dissection, status post bioprosthetic aortic valve replacement with aortic aneurysm in December 2014. I was asked to see the patient because yesterday. HISTORY OF PRESENT ILLNESS: The patient had a brain MRI which revealed no acute intracranial findings. The patient did have an EEG which revealed a normal awake stage 1 sleep EEG. He did see Dr. Jai Rodriguez, the neurologist, on 04/29/2015. The strength was at that time in the upper extremities lower extremities. He was able to wiggle his toes. Sensory exam is . He had bilateral mute plantar reflexes. He had a slightly shaky gait. There is no facial asymmetry. He was very anxious and he was depressed. 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 psychiatric evaluation with a possibility of . psychiatric evaluation admission. The patient was admitted on 10/27/2018 05:03 episode of chest pain and neck pain. He had an MRI, which revealed right hip . Final diagnoses included history of right MCA thromboembolic stroke, left total knee replacement pain syndrome, thrombocytopenia, osteoarthritis, , obesity, hypertension, atypical chest pain, coronary artery disease, sepsis with stroke bacteremia. The patient was discharged on 11/03/2018. The patient was basically asymptomatic around noon. He started to get left-sided weakness. He initially felt lightheaded and dizzy and had numbness in the left side with weakness. He had a headache on the left side of his head on to his left jaw and on to the left side of his his car. He got into the car and was brought to the hospital. The patient had a normal CBC except for slightly low platelet count of 148,000. Toxicology screen was negative. Urine screen revealed 40 to 60 white blood cells per high-power field, many bacteria, +1 ketone, +2 blood in urine. His PT and PTT were basically normal though the PTT was slightly low. Chemistries revealed a high sodium of 148, chloride of 112 with a slightly low potassium. Glucose was slightly high at 116. Calcium was slightly low. He had slight elevation of his liver function tests. His cholesterol was normal. His TSH was 3.78, slightly little higher with a normal free T4. Glucose on admission was 103. C-reactive protein on 11/26/2019 was 1.6. Creatinine was 1.4. Lipase was normal. The patient had a head CT scan on 11/26/2019, which was abnormal. He had multifocal small encephalomalacia in right frontal parietal parenchymal at the level of centrum semiovale small left white matter infarct in the frontal parietal region below the centrum semiovale. He had a new small lacunar infarct. He had white matter hypoattenuation, likely secondary to chronic microvascular disease. There is no acute intracranial abnormality. A chest x-ray yesterday was abnormal, see the chart. He had cardiomegaly. Otherwise, there is no acute cardiopulmonary disease. He had an unchanged aortic endograft thoracic aorta with sternotomy, mediastinal operative findings with aortic root repair. Abdominal ultrasound today had echogenic probably fatty liver, which was slightly enlarged. He had a cyst noted in the upper pole of the left kidney. The aorta and cava were within normal limits. I was asked to see the patient because of the possible stroke. His urine culture revealed no reportable results. SARS test was negative. The patient was placed on Rocephin 1 g IV piggyback q.24h., amlodipine 10 mg, aspirin 81 mg, Tenormin 50 mg, hydrocodone, hydromorphone, , calcium chloride, Flomax 0.4 mg, and tramadol. The patient had a 2D echocardiogram today . Jl Qureshi MD DR: JAMIA JOB#: [id number] CC:
[2019-11-28 20:00] VITALS: BP 121/73
--- NOTE | 2019-11-28 21:22 | General Progress Note ---
Assessment/Plan Problem List: (1) Generalized weakness ICD Codes: R53.1 - Weakness SNOMED: 53291067 (2) Extremity pain ICD Codes: M79.609 - Pain in unspecified limb SNOMED: 47215327 (3) Headache ICD Codes: R51 - Headache SNOMED: 10384747 Qualifiers: Qualified Codes: R51 - Headache (4) Left-sided weakness ICD Codes: R53.1 - Weakness SNOMED: 511484755 (5) Chest pain ICD Codes: R07.9 - Chest pain, unspecified SNOMED: 79585826 Qualifiers: Qualified Codes: R07.89 - Other chest pain (6) Paroxysmal atrial fibrillation ICD Codes: I48.0 - Paroxysmal atrial fibrillation SNOMED: 488371932 (7) Acute coronary syndrome ICD Codes: I20.0 - Unstable angina SNOMED: 647446142 (8) CVA (cerebral vascular accident) ICD Codes: I63.9 - Cerebral infarction, unspecified SNOMED: 227532492 (9) Anemia ICD Codes: D64.9 - Anemia, unspecified SNOMED: 562349183 (10) 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 ICD Codes: I63.311 - 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 SNOMED: 870509868 (11) CAD (coronary artery disease) ICD Codes: I25.10 - Athscl heart disease of [place] coronary artery w/o ang pctrs SNOMED: 34353249 Status: progressing, not improved Assessment/Plan: afebrile per dr jefferson pt will benefit from eloquis a fib r/o cva anemia h/o non compliance Subjective ROS Limited/Unobtainable: Yes Allergies: Coded Allergies: MORPHINE (Verified Allergy, Severe, 11/07/10) NITROGLYCERIN (Verified Allergy, Severe, 11/07/10) KETOROLAC (Unverified Allergy, Intermediate, 03/14/14) FISH CONTAINING PRODUCTS (Verified Allergy, Mild, 07/20/14) per patient, "it knocks me out" ACETAMINOPHEN (Unverified Allergy, Unknown, 07/19/14) CODEINE (Unverified Allergy, Unknown, 11/03/13) UNKNOWN DIPHENHYDRAMINE (Unverified Allergy, Unknown, 09/30/14) IBUPROFEN (Unverified Allergy, Unknown, 11/03/13) UNKNOWN PROCHLORPERAZINE (Unverified Allergy, Unknown, 07/19/14) GABAPENTIN (Verified Adverse Reaction, Intermediate, 07/20/14) Per patient, it makes him sweat, throws up, and "blacks out" Objective Last 24 Hour Vital Signs Date Time Temp Pulse Resp B/P (MAP) Pulse Ox O2 Delivery O2 Flow Rate FiO2 11/28/19 16:00 70 11/28/19 16:00 97.9 70 18 128/76 (93) 97 11/28/19 12:00 68 11/28/19 12:00 97.2 68 18 106/70 (82) 97 11/28/19 09:36 67 127/71 11/28/19 09:36 67 127/71 11/28/19 08:00 97.5 66 18 127/71 (89) 97 11/28/19 08:00 Room Air 11/28/19 08:00 66 11/28/19 07:07 97.4 11/28/19 04:00 58 11/28/19 04:00 97.4 58 17 120/74 (89) 96 11/28/19 03:11 Room Air 11/28/19 00:00 96.5 58 18 122/86 (98) 97 11/28/19 00:00 65 11/28/19 00:00 Room Air Intake and Output 11/27/19 11/28/19 19:00 07:00 Intake Total 240 ml 480 ml Output Total 450 ml 700 ml Balance -210 ml -220 ml Intake Oral 240 ml 480 ml Output Urine Total 450 ml 700 ml # Voids 2 # Bowel Movements 4 Laboratory Tests 11/28/19 06:42: Sodium Level 141, Potassium Level 4.1, Chloride Level 109H, Carbon Dioxide Level 23, Anion Gap 9, Blood Urea Nitrogen 14, Creatinine 1.1, Estimat Glomerular Filtration Rate > 60, Glucose Level 117H, Calcium Level 9.4, Phosphorus Level 2.2L, Magnesium Level 2.1, Total Bilirubin 0.8, Gamma Glutamyl Transpeptidase 34, Aspartate Amino Transf (AST/SGOT) 65H, Alanine Aminotransferase (ALT/SGPT) 105H, Alkaline Phosphatase 122H, C-Reactive Protein , Quantitative 0.7, Pro-B-Type Natriuretic Peptide 203H, Total Protein 6.6, Albumin 3.2L, Globulin 3.4, Albumin/Globulin Ratio 0.9L, Hepatitis A IgM Antibody [Pending], Hepatitis B Surface Antigen [Pending], Hepatitis B Core IgM Antibody [Pending], Hepatitis C Antibody [Pending] Height (Feet): 6 Height (Inches): 4.00 Weight (Pounds): 230 Rafaela Roy MD Nov 28, 2019 21:22
--- NOTE | 2019-11-28 21:34 | General Progress Note ---
Assessment/Plan Status: progressing, not improved Assessment/Plan: Assessment - Abnormal LFT - ? Fatty liver, ? hepatitis - CAD - valvular heart disease - h/o CVA with (L) weakness - CP Recommendations - check hepatitis B/C - pending - follow LFT - Check CK - normal - abd U/S --> fatty liver, renal cyst - OK for ASA or systemic anticoagulation from GI standpoint - consider urology eval re mildly complex left renal cyst Subjective Allergies: Coded Allergies: MORPHINE (Verified Allergy, Severe, 11/07/10) NITROGLYCERIN (Verified Allergy, Severe, 11/07/10) KETOROLAC (Unverified Allergy, Intermediate, 03/14/14) FISH CONTAINING PRODUCTS (Verified Allergy, Mild, 07/20/14) per patient, "it knocks me out" ACETAMINOPHEN (Unverified Allergy, Unknown, 07/19/14) CODEINE (Unverified Allergy, Unknown, 11/03/13) UNKNOWN DIPHENHYDRAMINE (Unverified Allergy, Unknown, 09/30/14) IBUPROFEN (Unverified Allergy, Unknown, 11/03/13) UNKNOWN PROCHLORPERAZINE (Unverified Allergy, Unknown, 07/19/14) GABAPENTIN (Verified Adverse Reaction, Intermediate, 07/20/14) Per patient, it makes him sweat, throws up, and "blacks out" Subjective above noted tolerating PO no abd pain Objective Last 24 Hour Vital Signs Date Time Temp Pulse Resp B/P (MAP) Pulse Ox O2 Delivery O2 Flow Rate FiO2 11/28/19 16:00 70 11/28/19 16:00 97.9 70 18 128/76 (93) 97 11/28/19 12:00 68 11/28/19 12:00 97.2 68 18 106/70 (82) 97 11/28/19 09:36 67 127/71 11/28/19 09:36 67 127/71 11/28/19 08:00 97.5 66 18 127/71 (89) 97 11/28/19 08:00 Room Air 11/28/19 08:00 66 11/28/19 07:07 97.4 11/28/19 04:00 58 11/28/19 04:00 97.4 58 17 120/74 (89) 96 11/28/19 03:11 Room Air 11/28/19 00:00 96.5 58 18 122/86 (98) 97 11/28/19 00:00 65 11/28/19 00:00 Room Air Intake and Output 11/27/19 11/28/19 19:00 07:00 Intake Total 240 ml 480 ml Output Total 450 ml 700 ml Balance -210 ml -220 ml Intake Oral 240 ml 480 ml Output Urine Total 450 ml 700 ml # Voids 2 # Bowel Movements 4 Laboratory Tests 11/28/19 06:42: Sodium Level 141, Potassium Level 4.1, Chloride Level 109H, Carbon Dioxide Level 23, Anion Gap 9, Blood Urea Nitrogen 14, Creatinine 1.1, Estimat Glomerular Filtration Rate > 60, Glucose Level 117H, Calcium Level 9.4, Phosphorus Level 2.2L, Magnesium Level 2.1, Total Bilirubin 0.8, Gamma Glutamyl Transpeptidase 34, Aspartate Amino Transf (AST/SGOT) 65H, Alanine Aminotransferase (ALT/SGPT) 105H, Alkaline Phosphatase 122H, C-Reactive Protein , Quantitative 0.7, Pro-B-Type Natriuretic Peptide 203H, Total Protein 6.6, Albumin 3.2L, Globulin 3.4, Albumin/Globulin Ratio 0.9L, Hepatitis A IgM Antibody [Pending], Hepatitis B Surface Antigen [Pending], Hepatitis B Core IgM Antibody [Pending], Hepatitis C Antibody [Pending] Height (Feet): 6 Height (Inches): 4.00 Weight (Pounds): 230 Objective WDWN AA man NCAT supple CTA RR abd soft Obese no edema LUE weakness Chris Murphy MD Nov 28, 2019 21:34
[2019-11-28] MEDS: Tamsulosin 0.4mg cap ORAL SCH (22:07)
[2019-11-29] VITALS: BP 113/53
[2019-11-29] MEDS: HYDROmorphone 1mg/ml Carpuject IVP PRN ×6 (02:11→22:36)
[2019-11-29 04:00] VITALS: BP 114/63
[2019-11-29 08:00] VITALS: BP 121/76
--- NOTE | 2019-11-29 08:43 | General Progress Note ---
Assessment/Plan Assessment/Plan: (1) Hemiplegia, flaccid, nondominant side (2) Lumbar post-laminectomy syndrome (3) HO TKR (total knee replacement) (4) OA (osteoarthritis) of knee (5) Thalamic pain syndrome (6) CVA (cerebral vascular accident) We will continue [place], Tramadol and Dilaudid P/w Dr. Linn and Dr. Linn concurred. Subjective Date patient seen: Nov 29, 2019 Time patient seen: 07:15 - am Allergies: Coded Allergies: MORPHINE (Verified Allergy, Severe, 11/07/10) NITROGLYCERIN (Verified Allergy, Severe, 11/07/10) KETOROLAC (Unverified Allergy, Intermediate, 03/14/14) FISH CONTAINING PRODUCTS (Verified Allergy, Mild, 07/20/14) per patient, "it knocks me out" ACETAMINOPHEN (Unverified Allergy, Unknown, 07/19/14) CODEINE (Unverified Allergy, Unknown, 11/03/13) UNKNOWN DIPHENHYDRAMINE (Unverified Allergy, Unknown, 09/30/14) IBUPROFEN (Unverified Allergy, Unknown, 11/03/13) UNKNOWN PROCHLORPERAZINE (Unverified Allergy, Unknown, 07/19/14) GABAPENTIN (Verified Adverse Reaction, Intermediate, 07/20/14) Per patient, it makes him sweat, throws up, and "blacks out" Subjective Constitutional: Denies: no symptoms, chills, diaphoresis, fever, malaise, weakness, other HEENT: Denies: no symptoms, eye pain, blurred vision, tearing, double vision, ear pain, ear discharge, nose pain, nose congestion, throat pain, throat swelling, mouth pain, mouth swelling, other Cardiovascular: Denies: no symptoms, chest pain, edema, irregular heart rate, lightheadedness, palpitations, syncope, other Respiratory: Denies: no symptoms, cough, orthopnea, shortness of breath, SOB with excertion, SOB at rest, sputum, stridor, wheezing, other Gastrointestinal/Abdominal: Denies: no symptoms, abdomen distended, abdominal pain, black stools, tarry stools, blood in stool, constipated, diarrhea, difficulty swallowing, nausea, poor appetite, poor fluid intake, rectal bleeding, vomiting, other Genitourinary: Denies: no symptoms, burning, discharge, frequency, flank pain, hematuria, incontinence, pain, urgency, other Neurologic/Psychiatric: Denies: no symptoms, anxiety, depressed, emotional problems, headache, numbness, paresthesia, pre-existing deficit, seizure, tingling, tremors, weakness, other Endocrine: Denies: no symptoms, excessive sweating, flushing, intolerance to cold, intolerance to heat, increased hunger, increased thirst, increased urine, unexplained weight gain, unexplained weight loss, other Hematologic/Lymphatic: Denies: no symptoms, anemia, easy bleeding, easy bruising, other SUBJECTIVE: Patient resting in bed reports pain is unchanged and tolerated on Dilaudid 6 doses in the last 24hrs. No new complaints at this time. Objective Last 24 Hour Vital Signs Date Time Temp Pulse Resp B/P (MAP) Pulse Ox O2 Delivery O2 Flow Rate FiO2 11/29/19 06:41 98.1 11/29/19 04:00 98.1 60 18 114/63 (80) 98 11/29/19 04:00 60 11/29/19 02:41 97.2 11/29/19 00:00 63 11/29/19 00:00 97.2 60 16 113/53 (73) 95 11/28/19 22:08 68 121/73 11/28/19 21:00 Room Air 11/28/19 20:00 96.8 68 18 121/73 (89) 95 11/28/19 20:00 68 11/28/19 16:00 70 11/28/19 16:00 97.9 70 18 128/76 (93) 97 11/28/19 12:00 68 11/28/19 12:00 97.2 68 18 106/70 (82) 97 11/28/19 09:36 67 127/71 11/28/19 09:36 67 127/71 Intake and Output 11/28/19 11/29/19 19:00 07:00 Intake Total 600 ml 450 ml Output Total 1100 ml 800 ml Balance -500 ml -350 ml Intake Oral 600 ml 450 ml Output Urine Total 1100 ml 800 ml # Bowel Movements 1 1 Height (Feet): 6 Height (Inches): 4.00 Weight (Pounds): 230 Objective General Appearance: no apparent distress, alert EENT: PERRL/EOMI, TMs normal Neck: non-tender, normal alignment, supple Cardiovascular: normal rate, regular rhythm Respiratory/Chest: chest wall non-tender, lungs clear Abdomen: non tender, soft Extremities: non-tender Edema: no edema noted Arm (L), no edema noted Arm (R), no edema noted Leg (L), no edema noted Leg (R), no edema noted Pedal (L), no edema noted Pedal (R), no edema noted Generalized Neurologic: alert, oriented x 3 Skin: normal pigmentation Fabiano Loza Nov 29, 2019 08:43
[2019-11-29] MEDS: Docusate 100mg cap ORAL SCH ×3 (08:55→18:35)
[2019-11-29] MEDS ORDERED: Phospha 250 Neutral tab ORAL SCH (09:00)
--- NOTE | 2019-11-29 11:18 | Nephrology Progress Note ---
Assessment/Plan Problem List: (1) MARLY (acute kidney injury) (2) Proteinuria (3) HTN (hypertension) (4) Paroxysmal atrial fibrillation Assessment 74 years old male with multiple risk factors for coronary artery disease: Serum creatinine 1.4, renal disease most likely multifactorial. Proteinuria Chest pain with history of coronary artery disease Paroxysmal atrial fibrillation, ablation in 2018. 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 Continue per consultants Previously: Blood pressure medication Keep the blood sugar in check 2D echocardiogram, results pending Antibiotics, avoid nephrotoxic's Monitor liver enzymes Potassium supplements as needed Per orders Subjective ROS Limited/Unobtainable: No Constitutional: Reports: malaise Objective Objective Last 24 Hour Vital Signs Date Time Temp Pulse Resp B/P (MAP) Pulse Ox O2 Delivery O2 Flow Rate FiO2 11/29/19 09:00 Room Air 11/29/19 08:55 65 121/76 11/29/19 08:54 65 121/76 11/29/19 08:00 98.6 64 20 121/76 (91) 95 11/29/19 08:00 64 11/29/19 06:41 98.1 11/29/19 04:00 98.1 60 18 114/63 (80) 98 11/29/19 04:00 60 11/29/19 02:41 97.2 11/29/19 00:00 63 11/29/19 00:00 97.2 60 16 113/53 (73) 95 11/28/19 22:08 68 121/73 11/28/19 21:00 Room Air 11/28/19 20:00 96.8 68 18 121/73 (89) 95 11/28/19 20:00 68 11/28/19 16:00 70 11/28/19 16:00 97.9 70 18 128/76 (93) 97 11/28/19 12:00 68 11/28/19 12:00 97.2 68 18 106/70 (82) 97 Intake and Output 11/28/19 11/29/19 19:00 07:00 Intake Total 600 ml 450 ml Output Total 1100 ml 800 ml Balance -500 ml -350 ml Intake Oral 600 ml 450 ml Output Urine Total 1100 ml 800 ml # Bowel Movements 1 1 No chemistry panel drawn today Height (Feet): 6 Height (Inches): 4.00 Weight (Pounds): 230 General Appearance: no apparent distress Cardiovascular: normal rate Respiratory/Chest: decreased breath sounds Abdomen: soft, distended Jose Gracia MD Nov 29, 2019 11:17
[2019-11-29 12:00] VITALS: BP 140/65
--- NOTE | 2019-11-29 14:31 | Infectious Diseases Prog Note ---
Assessment/Plan Assessment/Plan IMPRESSION: Pyuria,doubt U[place] [id number] [place] [id number] Elevated transaminase, Lactic acidosis resolved headache, Atypical chest pain, Chronic pain syndrome, Hypertension, Old CVA. RECOMMENDATION: Observe off antibiotic Subjective ROS Limited/Unobtainable: No Constitutional: Reports: no symptoms HEENT: Reports: other - headache Respiratory: Reports: no symptoms Cardiovascular: Reports: chest pain Gastrointestinal/Abdominal: Reports: no symptoms Genitourinary: Reports: no symptoms Allergies: Coded Allergies: MORPHINE (Verified Allergy, Severe, 11/07/10) NITROGLYCERIN (Verified Allergy, Severe, 11/07/10) KETOROLAC (Unverified Allergy, Intermediate, 03/14/14) FISH CONTAINING PRODUCTS (Verified Allergy, Mild, 07/20/14) per patient, "it knocks me out" ACETAMINOPHEN (Unverified Allergy, Unknown, 07/19/14) CODEINE (Unverified Allergy, Unknown, 11/03/13) UNKNOWN DIPHENHYDRAMINE (Unverified Allergy, Unknown, 09/30/14) IBUPROFEN (Unverified Allergy, Unknown, 11/03/13) UNKNOWN PROCHLORPERAZINE (Unverified Allergy, Unknown, 07/19/14) GABAPENTIN (Verified Adverse Reaction, Intermediate, 07/20/14) Per patient, it makes him sweat, throws up, and "blacks out" Objective Last 24 Hour Vital Signs Date Time Temp Pulse Resp B/P (MAP) Pulse Ox O2 Delivery O2 Flow Rate FiO2 11/29/19 12:00 97.5 64 20 140/65 (90) 96 11/29/19 12:00 64 11/29/19 09:00 Room Air 11/29/19 08:55 65 121/76 11/29/19 08:54 65 121/76 11/29/19 08:00 98.6 64 20 121/76 (91) 95 11/29/19 08:00 64 11/29/19 06:41 98.1 11/29/19 04:00 98.1 60 18 114/63 (80) 98 11/29/19 04:00 60 11/29/19 02:41 97.2 11/29/19 00:00 63 11/29/19 00:00 97.2 60 16 113/53 (73) 95 11/28/19 22:08 68 121/73 11/28/19 21:00 Room Air 11/28/19 20:00 96.8 68 18 121/73 (89) 95 11/28/19 20:00 68 11/28/19 16:00 70 11/28/19 16:00 97.9 70 18 128/76 (93) 97 Height (Feet): 6 Height (Inches): 4.00 Weight (Pounds): 230 General Appearance: no acute distress HEENT: mucous membranes moist Respiratory/Chest: lungs clear Cardiovascular: normal rate, regular rhythm Abdomen: soft, non tender Extremities: no edema Neurologic/Psychiatric: alert, oriented x 3, responsive Microbiology Date/Time Source Procedure Growth Status 11/26/19 17:40 Urine,Clean Catch Urine Culture - Preliminary Gram Negative Bacillus 1 Resulted 11/26/19 16:35 Nasopharynx SARS-CoV-2 RdRp Gene Assay - Final Complete Current Medications Medications (Trade) Dose Ordered Sig/Sheba Route PRN Reason Start Time Stop Time Status Last Admin Dose Admin Acetaminophen/ Hydrocodone Bitart ([place] 10/325) 1 tab Q4H PRN ORAL Severe Pain (Pain Scale 7-10) 11/27/19 09:00 12/04/19 08:59 11/27/19 18:26 Amlodipine Besylate (Norvasc) 10 mg DAILY ORAL 11/27/19 09:00 12/27/19 08:59 11/29/19 08:55 Atenolol (Tenormin) 50 mg Q12HR ORAL 11/27/19 09:00 12/26/19 21:44 11/29/19 08:54 Barium Sulfate (Varibar Honey) 250 ml NOW PRN MC RAD 11/27/19 08:15 11/30/19 08:02 Barium Sulfate (Varibar [place]) 240 ml NOW PRN MC RAD 11/27/19 08:15 11/30/19 08:02 Barium Sulfate (Varibar Pudding) 230 ml NOW PRN MC RAD 11/27/19 08:15 11/30/19 08:02 Barium Sulfate (Varibar Thin Liquid powder) 148 gm NOW PRN MC RAD 11/27/19 08:15 11/30/19 08:02 Docusate Sodium (Colace) 100 mg THREE TIMES A DAY ORAL 11/27/19 09:00 12/27/19 08:59 11/29/19 12:16 Hydromorphone HCl (Dilaudid) 1 mg Q4H PRN IVP Severe Breakthru Pain (>7) 11/28/19 09:08 12/05/19 09:07 11/29/19 10:15 Naloxone HCl (Narcan) 0.2 mg Q2M PRN IVP RR<8/min 11/27/19 09:15 02/25/20 09:14 Pantoprazole (Protonix) 40 mg EVERY 12 HOURS ORAL 11/26/19 21:45 12/26/19 21:44 11/29/19 08:54 Potassium Chloride (K-Dur) 40 meq DAILY ORAL 11/29/19 09:00 02/25/20 08:59 11/29/19 08:56 Tamsulosin HCl (Flomax) 0.4 mg BEDTIME ORAL 11/27/19 21:00 12/27/19 20:59 11/28/19 22:07 Tramadol HCl (Ultram) 100 mg Q6H PRN ORAL Moderate Pain (Pain Scale 4-6) 11/27/19 09:00 12/04/19 08:59 Jesse Maddox MD Nov 29, 2019 14:31
[2019-11-29 16:00] VITALS: BP 127/76
--- NOTE | 2019-11-29 16:31 | Cardiology Progress Note ---
Assessment/Plan Status: stable Assessment/Plan Assessment/Plan Assessment/Plan 1. Chest pain. The patient with history of coronary artery disease. EKG demonstrates no acute ischemic changes. Ruled out for MT Echo EF 50% 2. Paroxysmal atrial fibrillation, status post ablation in 2018, in sinus rhythm. Continue Eliquis for anticoagulation. 3. Status post bioprosthetic aortic valve replacement. 4. Status post thoracic aortic aneurysm repair. 5. Diabetes. 6. The patient's urine toxic screen is also negative. Subjective Cardiovascular: Reports: no symptoms Respiratory: Reports: no symptoms Gastrointestinal/Abdominal: Reports: no symptoms Genitourinary: Reports: no symptoms Subjective COVERAGE FOR [place] No acute events, no arrhythmias Objective Last 24 Hour Vital Signs Date Time Temp Pulse Resp B/P (MAP) Pulse Ox O2 Delivery O2 Flow Rate FiO2 11/29/19 12:00 97.5 64 20 140/65 (90) 96 11/29/19 12:00 64 11/29/19 09:00 Room Air 11/29/19 08:55 65 121/76 11/29/19 08:54 65 121/76 11/29/19 08:00 98.6 64 20 121/76 (91) 95 11/29/19 08:00 64 11/29/19 06:41 98.1 11/29/19 04:00 98.1 60 18 114/63 (80) 98 11/29/19 04:00 60 11/29/19 02:41 97.2 11/29/19 00:00 63 11/29/19 00:00 97.2 60 16 113/53 (73) 95 11/28/19 22:08 68 121/73 11/28/19 21:00 Room Air 11/28/19 20:00 96.8 68 18 121/73 (89) 95 11/28/19 20:00 68 General Appearance: no apparent distress, alert EENT: normal ENT inspection, pharynx normal Neck: non-tender, normal alignment, supple Rhythm: NSR Cardiovascular: normal rate, regular rhythm Respiratory/Chest: chest wall non-tender, lungs clear Abdomen: non tender, no organomegaly Extremities: normal range of motion, normal inspection 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
[2019-11-29 20:20] VITALS: BP 136/84
--- NOTE | 2019-11-29 21:03 | General Progress Note ---
Subjective ROS Limited/Unobtainable: Yes Allergies: Coded Allergies: MORPHINE (Verified Allergy, Severe, 11/07/10) NITROGLYCERIN (Verified Allergy, Severe, 11/07/10) KETOROLAC (Unverified Allergy, Intermediate, 03/14/14) FISH CONTAINING PRODUCTS (Verified Allergy, Mild, 07/20/14) per patient, "it knocks me out" ACETAMINOPHEN (Unverified Allergy, Unknown, 07/19/14) CODEINE (Unverified Allergy, Unknown, 11/03/13) UNKNOWN DIPHENHYDRAMINE (Unverified Allergy, Unknown, 09/30/14) IBUPROFEN (Unverified Allergy, Unknown, 11/03/13) UNKNOWN PROCHLORPERAZINE (Unverified Allergy, Unknown, 07/19/14) GABAPENTIN (Verified Adverse Reaction, Intermediate, 07/20/14) Per patient, it makes him sweat, throws up, and "blacks out" Objective Last 24 Hour Vital Signs Date Time Temp Pulse Resp B/P (MAP) Pulse Ox O2 Delivery O2 Flow Rate FiO2 11/29/19 20:00 64 11/29/19 16:00 68 11/29/19 16:00 98.8 68 20 127/76 (93) 95 11/29/19 12:00 97.5 64 20 140/65 (90) 96 11/29/19 12:00 64 11/29/19 09:00 Room Air 11/29/19 08:55 65 121/76 11/29/19 08:54 65 121/76 11/29/19 08:00 98.6 64 20 121/76 (91) 95 11/29/19 08:00 64 11/29/19 06:41 98.1 11/29/19 04:00 98.1 60 18 114/63 (80) 98 11/29/19 04:00 60 11/29/19 02:41 97.2 11/29/19 00:00 63 11/29/19 00:00 97.2 60 16 113/53 (73) 95 11/28/19 22:08 68 121/73 Intake and Output 11/28/19 11/29/19 19:00 07:00 Intake Total 600 ml 450 ml Output Total 1100 ml 800 ml Balance -500 ml -350 ml Intake Oral 600 ml 450 ml Output Urine Total 1100 ml 800 ml # Bowel Movements 1 1 Height (Feet): 6 Height (Inches): 4.00 Weight (Pounds): 230 Assessment/Plan Problem List: (1) Generalized weakness ICD Codes: R53.1 - Weakness SNOMED: 72747506 (2) Extremity pain ICD Codes: M79.609 - Pain in unspecified limb SNOMED: 89341485 (3) Headache ICD Codes: R51 - Headache SNOMED: 22549283 Qualifiers: Qualified Codes: R51 - Headache (4) Left-sided weakness ICD Codes: R53.1 - Weakness SNOMED: 183320554 (5) Chest pain ICD Codes: R07.9 - Chest pain, unspecified SNOMED: 74348244 Qualifiers: Qualified Codes: R07.89 - Other chest pain (6) Paroxysmal atrial fibrillation ICD Codes: I48.0 - Paroxysmal atrial fibrillation SNOMED: 708075142 (7) Acute coronary syndrome ICD Codes: I20.0 - Unstable angina SNOMED: 489098420 (8) CVA (cerebral vascular accident) ICD Codes: I63.9 - Cerebral infarction, unspecified SNOMED: 203909820 (9) Anemia ICD Codes: D64.9 - Anemia, unspecified SNOMED: 282830913 (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
[2019-11-29] MEDS: Tamsulosin 0.4mg cap ORAL SCH (21:29)
--- NOTE | 2019-11-29 21:46 | Cardiology Report ---
APPROVED REPORT EXAM: Two-dimensional and M-mode echocardiogram with Doppler and color Doppler. INDICATION Chest Pain M-Mode DIMENSIONS IVSd1.7 (0.7-1.1cm)EPSS1.0 (>1.0cm) LVDd5.6 (3.5-5.6cm) PWd1.7 (0.7-1.1cm) IVSs2.2 cm LVDs4.0 (2.5-4.0cm) PWs1.9 cm <Conclusion> Technically difficult study due to poor acoustic windows. Study quality precludes accurate assessment of regional wall motion. Normal left ventricular chamber size, systolic function and wall motion. Left ventricular ejection fraction estimated to be 55 %. Mild left ventricular hypertrophy. No evidence of pericardial effusion. Mild bi-atrial enlargement. Right ventricular chamber sizes is within normal limits. Due to poor valvular definition the aortic valve cusp appears to have decreased excursion. Thickened mitral valve leaflets with normal excursion. Mitral annulus and aortic root calcification. Pulmonic valve not well visualized. Normal tricuspid valve structure. IVC is normal in size with physiological collapse. A color flow and spectral Doppler study was performed and revealed: No aortic regurgitation. Peak aortic valve gradient of 25 mmHg and a mean of 14 mmHg. Trace mitral regurgitation. Mitral diastolic velocities of E & A equalization & Tissue Doppler Imaging suggest mildly reduced left ventricular relaxation c/w impaired relaxation diastolic dysfunction. No tricuspid regurgitation. Trace pulmonic regurgitation present.
--- NOTE | 2019-11-29 21:54 | Cardiology Report ---
APPROVED REPORT EKG Measurement Heart [id number] MO [id number] <Conclusion> Sinus rhythm with occasional premature ventricular complexes and premature atrial complexes Left anterior fascicular block Left ventricular hypertrophy with repolarization abnormality Abnormal ECG
--- NOTE | 2019-11-29 23:02 | General Progress Note ---
Subjective Allergies: Coded Allergies: MORPHINE (Verified Allergy, Severe, 11/07/10) NITROGLYCERIN (Verified Allergy, Severe, 11/07/10) KETOROLAC (Unverified Allergy, Intermediate, 03/14/14) FISH CONTAINING PRODUCTS (Verified Allergy, Mild, 07/20/14) per patient, "it knocks me out" ACETAMINOPHEN (Unverified Allergy, Unknown, 07/19/14) CODEINE (Unverified Allergy, Unknown, 11/03/13) UNKNOWN DIPHENHYDRAMINE (Unverified Allergy, Unknown, 09/30/14) IBUPROFEN (Unverified Allergy, Unknown, 11/03/13) UNKNOWN PROCHLORPERAZINE (Unverified Allergy, Unknown, 07/19/14) GABAPENTIN (Verified Adverse Reaction, Intermediate, 07/20/14) Per patient, it makes him sweat, throws up, and "blacks out" Subjective above noted tolerating PO no abd pain Objective Last 24 Hour Vital Signs Date Time Temp Pulse Resp B/P (MAP) Pulse Ox O2 Delivery O2 Flow Rate FiO2 11/29/19 21:29 69 136/84 11/29/19 21:00 Room Air 11/29/19 20:20 98.0 69 16 136/84 (101) 98 11/29/19 20:00 64 11/29/19 16:00 68 11/29/19 16:00 98.8 68 20 127/76 (93) 95 11/29/19 12:00 97.5 64 20 140/65 (90) 96 11/29/19 12:00 64 11/29/19 09:00 Room Air 11/29/19 08:55 65 121/76 11/29/19 08:54 65 121/76 11/29/19 08:00 98.6 64 20 121/76 (91) 95 11/29/19 08:00 64 11/29/19 06:41 98.1 11/29/19 04:00 98.1 60 18 114/63 (80) 98 11/29/19 04:00 60 11/29/19 02:41 97.2 11/29/19 00:00 63 11/29/19 00:00 97.2 60 16 113/53 (73) 95 Intake and Output 11/28/19 11/29/19 19:00 07:00 Intake Total 600 ml 450 ml Output Total 1100 ml 800 ml Balance -500 ml -350 ml Intake Oral 600 ml 450 ml Output Urine Total 1100 ml 800 ml # Bowel Movements 1 1 Height (Feet): 6 Height (Inches): 4.00 Weight (Pounds): 230 Objective WDWN AA man NCAT supple CTA RR abd soft Obese no edema LUE weakness Assessment/Plan Status: stable Assessment/Plan: Assessment - Abnormal LFT - ? Fatty liver, ? hepatitis - CAD - valvular heart disease - h/o CVA with (L) weakness - CP Recommendations - check hepatitis B/C - pending - follow LFT - Check CK - normal - abd U/S --> fatty liver, renal cyst - OK for ASA or systemic anticoagulation from GI standpoint - consider urology eval re mildly complex left renal cyst Chris Murphy MD Nov 29, 2019 23:02
[2019-11-30] VITALS: BP 128/72
[2019-11-30] MEDS: HYDROmorphone 1mg/ml Carpuject IVP PRN ×3 (02:34→10:43)
[2019-11-30 04:00] VITALS: BP 125/70
[2019-11-30 07:06] LABS: ALANINE AMINOTRANSFERASE 81 U/L (12-78); ALBUMIN 3.1 G/DL (3.4-5.0); ALBUMIN/GLOBULIN RATIO 0.9 (1.0-2.7); ALKALINE PHOSPHATASE 174 U/L (46-116); ANION GAP 10 mmol/L (5-15); ASPARTATE AMINO TRANSFERASE 46 U/L (15-37); BILIRUBIN,TOTAL 0.7 MG/DL (0.2-1.0); BLOOD UREA NITROGEN 12 mg/dL (7-18); CALCIUM 8.5 MG/DL (8.5-10.1); CARBON DIOXIDE 24 MMOL/L (21-32); CHLORIDE 109 MMOL/L (98-107); GAMMA GLUTAMYL TRANSPEPTIDASE 31 U/L (5-85); PHOSPHORUS 2.1 MG/DL (2.5-4.9); POTASSIUM 3.9 MMOL/L (3.5-5.1); SODIUM 143 MMOL/L (136-145)
[2019-11-30 08:00] VITALS: BP 119/65
--- NOTE | 2019-11-30 08:41 | General Progress Note ---
Subjective Date patient seen: Nov 30, 2019 Time patient seen: 07:15 - am Allergies: Coded Allergies: MORPHINE (Verified Allergy, Severe, 11/07/10) NITROGLYCERIN (Verified Allergy, Severe, 11/07/10) KETOROLAC (Unverified Allergy, Intermediate, 03/14/14) FISH CONTAINING PRODUCTS (Verified Allergy, Mild, 07/20/14) per patient, "it knocks me out" ACETAMINOPHEN (Unverified Allergy, Unknown, 07/19/14) CODEINE (Unverified Allergy, Unknown, 11/03/13) UNKNOWN DIPHENHYDRAMINE (Unverified Allergy, Unknown, 09/30/14) IBUPROFEN (Unverified Allergy, Unknown, 11/03/13) UNKNOWN PROCHLORPERAZINE (Unverified Allergy, Unknown, 07/19/14) GABAPENTIN (Verified Adverse Reaction, Intermediate, 07/20/14) Per patient, it makes him sweat, throws up, and "blacks out" Uncoded Allergies: IV contrast (Allergy, Unknown, 11/30/19) Subjective Constitutional: Denies: no symptoms, chills, diaphoresis, fever, malaise, weakness, other HEENT: Denies: no symptoms, eye pain, blurred vision, tearing, double vision, ear pain, ear discharge, nose pain, nose congestion, throat pain, throat swelling, mouth pain, mouth swelling, other Cardiovascular: Denies: no symptoms, chest pain, edema, irregular heart rate, lightheadedness, palpitations, syncope, other Respiratory: Denies: no symptoms, cough, orthopnea, shortness of breath, SOB with excertion, SOB at rest, sputum, stridor, wheezing, other Gastrointestinal/Abdominal: Denies: no symptoms, abdomen distended, abdominal pain, black stools, tarry stools, blood in stool, constipated, diarrhea, dif ficulty swallowing, nausea, poor appetite, poor fluid intake, rectal bleeding, vomiting, other Genitourinary: Denies: no symptoms, burning, discharge, frequency, flank pain, hematuria, incontinence, pain, urgency, other Neurologic/Psychiatric: Denies: no symptoms, anxiety, depressed, emotional problems, headache, numbness, paresthesia, pre-existing deficit, seizure, tingling, tremors, weakness, other Endocrine: Denies: no symptoms, excessive sweating, flushing, intolerance to cold, intolerance to heat, increased hunger, increased thirst, increased urine, unexplained weight gain, unexplained weight loss, other Hematologic/Lymphatic: Denies: no symptoms, anemia, easy bleeding, easy bruising, other SUBJECTIVE: Patient showing no signs of pain or distress. His pain has been tolerated on the 6 doses of Dilaudid in the last 24hrs. No new complaints at this time. Scheduled for a CTA of neck and head as per neurologist. Objective Last 24 Hour Vital Signs Date Time Temp Pulse Resp B/P (MAP) Pulse Ox O2 Delivery O2 Flow Rate FiO2 11/30/19 08:00 97.6 72 22 119/65 (83) 100 11/30/19 04:00 98.0 68 18 125/70 (88) 96 11/30/19 00:00 98.2 66 16 128/72 (90) 96 11/29/19 21:29 69 136/84 11/29/19 21:00 Room Air 11/29/19 20:20 98.0 69 16 136/84 (101) 98 11/29/19 20:00 64 11/29/19 16:00 68 11/29/19 16:00 98.8 68 20 127/76 (93) 95 11/29/19 12:00 97.5 64 20 140/65 (90) 96 11/29/19 12:00 64 11/29/19 09:00 Room Air 11/29/19 08:55 65 121/76 11/29/19 08:54 65 121/76 Intake and Output 11/29/19 11/30/19 19:00 07:00 Intake Total 820 ml 420 ml Output Total 800 ml Balance 20 ml 420 ml Intake Oral 820 ml 420 ml Output Urine Total 800 ml # Voids 5 # Bowel Movements 1 Laboratory Tests 11/30/19 05:15: Sodium Level 143, Potassium Level 3.9, Chloride Level 109H, Carbon Dioxide Level 24, Anion Gap 10, Blood Urea Nitrogen 12, Creatinine 1.0, Estimat Glomerular Filtration Rate > 60, Glucose Level 177H, Uric Acid 6.4, Calcium Level 8.5, Phosphorus Level 2.1L, Total Bilirubin 0.7, Gamma Glutamyl Transpeptidase 31, Aspartate Amino Transf (AST/SGOT) 46H, Alanine Aminotransferase (ALT/SGPT) 81H, Alkaline Phosphatase 174H, Total Protein 6.5, Albumin 3.1L, Globulin 3.4, Albumin/Globulin Ratio 0.9L Height (Feet): 6 Height (Inches): 4.00 Weight (Pounds): 230 Objective General Appearance: no apparent distress, alert EENT: PERRL/EOMI, TMs normal Neck: non-tender, normal alignment, supple Cardiovascular: normal rate, regular rhythm Respiratory/Chest: chest wall non-tender, lungs clear Abdomen: non tender, soft Extremities: non-tender Edema: no edema noted Arm (L), no edema noted Arm (R), no edema noted Leg (L), no edema noted Leg (R), no edema noted Pedal (L), no edema noted Pedal (R), no edema noted Generalized Neurologic: alert, oriented x 3 Skin: normal pigmentation Assessment/Plan Assessment/Plan: (1) Hemiplegia, flaccid, nondominant side (2) Lumbar post-laminectomy syndrome (3) HO TKR (total knee replacement) (4) OA (osteoarthritis) of knee (5) Thalamic pain syndrome (6) CVA (cerebral vascular accident) We will continue [facility], Tramadol and Dilaudid P/w Dr. Linn and Dr. Linn concurred. Fabiano Loza Nov 30, 2019 08:41
[2019-11-30] MEDS: Docusate 100mg cap ORAL SCH ×2 (09:31→12:59)
[2019-11-30] MEDS: HYDROcodone/Acetamin 10/325 tab ORAL PRN (09:31)
--- NOTE | 2019-11-30 10:34 | Infectious Diseases Prog Note ---
Assessment/Plan Assessment/Plan IMPRESSION: Pyuria,doubt UTI,[place] [id number] [id number] Elevated transaminase, Lactic acidosis resolved headache, Atypical chest pain, Chronic pain syndrome, Hypertension, Old CVA. RECOMMENDATION: Observe off antibiotic Subjective ROS Limited/Unobtainable: No Constitutional: Reports: other - dose not feel good HEENT: Reports: other - headache Respiratory: Reports: no symptoms Cardiovascular: Reports: chest pain Gastrointestinal/Abdominal: Reports: no symptoms Allergies: Coded Allergies: MORPHINE (Verified Allergy, Severe, 11/07/10) NITROGLYCERIN (Verified Allergy, Severe, 11/07/10) KETOROLAC (Unverified Allergy, Intermediate, 03/14/14) FISH CONTAINING PRODUCTS (Verified Allergy, Mild, 07/20/14) per patient, "it knocks me out" ACETAMINOPHEN (Unverified Allergy, Unknown, 07/19/14) CODEINE (Unverified Allergy, Unknown, 11/03/13) UNKNOWN DIPHENHYDRAMINE (Unverified Allergy, Unknown, 09/30/14) IBUPROFEN (Unverified Allergy, Unknown, 11/03/13) UNKNOWN PROCHLORPERAZINE (Unverified Allergy, Unknown, 07/19/14) GABAPENTIN (Verified Adverse Reaction, Intermediate, 07/20/14) Per patient, it makes him sweat, throws up, and "blacks out" Uncoded Allergies: IV contrast (Allergy, Unknown, 11/30/19) Objective Last 24 Hour Vital Signs Date Time Temp Pulse Resp B/P (MAP) Pulse Ox O2 Delivery O2 Flow Rate FiO2 11/30/19 09:32 72 119/65 11/30/19 09:31 72 119/65 11/30/19 08:00 97.6 72 22 119/65 (83) 100 11/30/19 04:00 98.0 68 18 125/70 (88) 96 11/30/19 00:00 98.2 66 16 128/72 (90) 96 11/29/19 21:29 69 136/84 11/29/19 21:00 Room Air 11/29/19 20:20 98.0 69 16 136/84 (101) 98 11/29/19 20:00 64 11/29/19 16:00 68 11/29/19 16:00 98.8 68 20 127/76 (93) 95 11/29/19 12:00 97.5 64 20 140/65 (90) 96 11/29/19 12:00 64 Height (Feet): 6 Height (Inches): 4.00 Weight (Pounds): 230 General Appearance: no acute distress HEENT: mucous membranes moist Respiratory/Chest: lungs clear Cardiovascular: normal rate Abdomen: soft, non tender, other - obese Extremities: other - legs edema Neurologic/Psychiatric: alert, oriented x 3, responsive Laboratory Tests Test 11/30/19 05:15 Sodium Level 143 MMOL/L (136-145) Potassium Level 3.9 MMOL/L (3.5-5.1) Chloride Level 109 MMOL/L (98-107) H Carbon Dioxide Level 24 MMOL/L (21-32) Anion Gap 10 mmol/L (5-15) Blood Urea Nitrogen 12 mg/dL (7-18) Creatinine 1.0 MG/DL (0.55-1.30) Estimat Glomerular Filtration Rate > 60 mL/min (>60) Glucose Level 177 MG/DL (74-106) H Uric Acid 6.4 MG/DL (2.6-7.2) Calcium Level 8.5 MG/DL (8.5-10.1) Phosphorus Level 2.1 MG/DL (2.5-4.9) L Total Bilirubin 0.7 MG/DL (0.2-1.0) Gamma Glutamyl Transpeptidase 31 U/L (5-85) Aspartate Amino Transf (AST/SGOT) 46 U/L (15-37) H Alanine Aminotransferase (ALT/SGPT) 81 U/L (12-78) H Alkaline Phosphatase 174 U/L (46-116) H Total Protein 6.5 G/DL (6.4-8.2) Albumin 3.1 G/DL (3.4-5.0) L Globulin 3.4 g/dL Albumin/Globulin Ratio 0.9 (1.0-2.7) L Current Medications Medications (Trade) Dose Ordered Sig/Sheba Route PRN Reason Start Time Stop Time Status Last Admin Dose Admin Acetaminophen/ Hydrocodone Bitart ([place] 10/325) 1 tab Q4H PRN ORAL Severe Pain (Pain Scale 7-10) 11/27/19 09:00 12/04/19 08:59 11/30/19 09:31 Amlodipine Besylate (Norvasc) 5 mg DAILY ORAL 12/01/19 09:00 12/27/19 08:59 Atenolol (Tenormin) 50 mg Q12HR ORAL 11/27/19 09:00 12/26/19 21:44 11/30/19 09:31 Docusate Sodium (Colace) 100 mg THREE TIMES A DAY ORAL 11/27/19 09:00 12/27/19 08:59 11/30/19 09:31 Hydromorphone HCl (Dilaudid) 1 mg Q4H PRN IVP Severe Breakthru Pain (>7) 11/28/19 09:08 12/05/19 09:07 11/30/19 06:26 Naloxone HCl (Narcan) 0.2 mg Q2M PRN IVP RR<8/min 11/27/19 09:15 02/25/20 09:14 Pantoprazole (Protonix) 40 mg EVERY 12 HOURS ORAL 11/26/19 21:45 12/26/19 21:44 11/30/19 09:31 Phosphorus (Phospha 250 Neutral) 250 mg THREE TIMES A DAY ORAL 11/30/19 13:00 12/30/19 12:59 Potassium Chloride (K-Dur) 40 meq DAILY ORAL 11/29/19 09:00 02/25/20 08:59 11/30/19 09:31 Tamsulosin HCl (Flomax) 0.4 mg BEDTIME ORAL 11/27/19 21:00 12/27/19 20:59 11/29/19 21:29 Tramadol HCl (Ultram) 100 mg Q6H PRN ORAL Moderate Pain (Pain Scale 4-6) 11/27/19 09:00 12/04/19 08:59 Jesse Maddox MD Nov 30, 2019 10:34
--- NOTE | 2019-11-30 10:45 | Nephrology Progress Note ---
Assessment/Plan Problem List: (1) MARLY (acute kidney injury) (2) Proteinuria (3) HTN (hypertension) (4) Paroxysmal atrial fibrillation Assessment 74 years old male with multiple risk factors for coronary artery disease: Serum creatinine 1.4, renal disease most likely multifactorial. Proteinuria Chest pain with history of coronary artery disease Paroxysmal atrial fibrillation, ablation in 2018. 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 Labs reviewed. Overall phosphorus supplement ordered. Agree with discharge. November 28: Stable from renal standpoint of view. Continue per consultants Previously: Blood pressure medication Keep the blood sugar in check 2D echocardiogram, results pending Antibiotics, avoid nephrotoxic's Monitor liver enzymes Potassium supplements as needed Per orders Subjective ROS Limited/Unobtainable: No Objective Objective Last 24 Hour Vital Signs Date Time Temp Pulse Resp B/P (MAP) Pulse Ox O2 Delivery O2 Flow Rate FiO2 11/30/19 09:32 72 119/65 11/30/19 09:31 72 119/65 11/30/19 08:00 97.6 72 22 119/65 (83) 100 11/30/19 04:00 98.0 68 18 125/70 (88) 96 11/30/19 00:00 98.2 66 16 128/72 (90) 96 11/29/19 21:29 69 136/84 11/29/19 21:00 Room Air 11/29/19 20:20 98.0 69 16 136/84 (101) 98 11/29/19 20:00 64 11/29/19 16:00 68 11/29/19 16:00 98.8 68 20 127/76 (93) 95 11/29/19 12:00 97.5 64 20 140/65 (90) 96 11/29/19 12:00 64 Intake and Output 11/29/19 11/30/19 19:00 07:00 Intake Total 820 ml 420 ml Output Total 800 ml Balance 20 ml 420 ml Intake Oral 820 ml 420 ml Output Urine Total 800 ml # Voids 5 # Bowel Movements 1 Laboratory Tests 11/30/19 05:15: Sodium Level 143, Potassium Level 3.9, Chloride Level 109H, Carbon Dioxide Level 24, Anion Gap 10, Blood Urea Nitrogen 12, Creatinine 1.0, Estimat Glomerular Filtration Rate > 60, Glucose Level 177H, Uric Acid 6.4, Calcium Level 8.5, Phosphorus Level 2.1L, Total Bilirubin 0.7, Gamma Glutamyl Transpeptidase 31, Aspartate Amino Transf (AST/SGOT) 46H, Alanine Aminotransferase (ALT/SGPT) 81H, Alkaline Phosphatase 174H, Total Protein 6.5, Albumin 3.1L, Globulin 3.4, Albumin/Globulin Ratio 0.9L Height (Feet): 6 Height (Inches): 4.00 Weight (Pounds): 230 General Appearance: no apparent distress Objective No change Jose Gracia MD Nov 30, 2019 10:45
[2019-11-30 12:00] VITALS: BP 139/81
[2019-11-30] MEDS ORDERED: Phospha 250 Neutral tab ORAL SCH (13:00)
[2019-11-30] MEDS ORDERED: NS Irrig 1000ml ONE (13:44)
--- NOTE | 2019-11-30 19:35 | General Progress Note ---
Subjective Allergies: Coded Allergies: MORPHINE (Verified Allergy, Severe, 11/07/10) NITROGLYCERIN (Verified Allergy, Severe, 11/07/10) KETOROLAC (Unverified Allergy, Intermediate, 03/14/14) FISH CONTAINING PRODUCTS (Verified Allergy, Mild, 07/20/14) per patient, "it knocks me out" ACETAMINOPHEN (Unverified Allergy, Unknown, 07/19/14) CODEINE (Unverified Allergy, Unknown, 11/03/13) UNKNOWN DIPHENHYDRAMINE (Unverified Allergy, Unknown, 09/30/14) IBUPROFEN (Unverified Allergy, Unknown, 11/03/13) UNKNOWN PROCHLORPERAZINE (Unverified Allergy, Unknown, 07/19/14) GABAPENTIN (Verified Adverse Reaction, Intermediate, 07/20/14) Per patient, it makes him sweat, throws up, and "blacks out" Uncoded Allergies: IV contrast (Allergy, Unknown, 11/30/19) Subjective above noted tolerating PO no abd pain for dc today Objective Last 24 Hour Vital Signs Date Time Temp Pulse Resp B/P (MAP) Pulse Ox O2 Delivery O2 Flow Rate FiO2 11/30/19 12:00 96.6 66 22 139/81 (100) 100 11/30/19 09:32 72 119/65 11/30/19 09:31 72 119/65 11/30/19 09:00 Room Air 11/30/19 08:00 97.6 72 22 119/65 (83) 100 11/30/19 04:00 98.0 68 18 125/70 (88) 96 11/30/19 00:00 98.2 66 16 128/72 (90) 96 11/29/19 21:29 69 136/84 11/29/19 21:00 Room Air 11/29/19 20:20 98.0 69 16 136/84 (101) 98 11/29/19 20:00 64 Intake and Output 11/29/19 11/30/19 19:00 07:00 Intake Total 820 ml 420 ml Output Total 800 ml Balance 20 ml 420 ml Intake Oral 820 ml 420 ml Output Urine Total 800 ml # Voids 5 # Bowel Movements 1 Laboratory Tests 11/30/19 05:15: Sodium Level 143, Potassium Level 3.9, Chloride Level 109H, Carbon Dioxide Level 24, Anion Gap 10, Blood Urea Nitrogen 12, Creatinine 1.0, Estimat Glomerular Filtration Rate > 60, Glucose Level 177H, Uric Acid 6.4, Calcium Level 8.5, Phosphorus Level 2.1L, Total Bilirubin 0.7, Gamma Glutamyl Transpeptidase 31, Aspartate Amino Transf (AST/SGOT) 46H, Alanine Aminotransferase (ALT/SGPT) 81H, Alkaline Phosphatase 174H, Total Protein 6.5, Albumin 3.1L, Globulin 3.4, Albumin/Globulin Ratio 0.9L Height (Feet): 6 Height (Inches): 4.00 Weight (Pounds): 230 Objective WDWN AA man NCAT supple CTA RR abd soft Obese no edema LUE weakness Assessment/Plan Assessment/Plan: Assessment - Abnormal LFT - ? Fatty liver, ? hepatitis - CAD - valvular heart disease - h/o CVA with (L) weakness - CP Recommendations - check hepatitis B/C - pending - follow LFT - Check CK - normal - abd U/S --> fatty liver, renal cyst - OK for ASA or systemic anticoagulation from GI standpoint - consider urology eval re mildly complex left renal cyst Chris Murphy MD Nov 30, 2019 19:35
--- NOTE | 2019-12-04 12:53 | Discharge Summary ---
Discharge Summary Discharge Summary _ DATE OF ADMISSION: 11/26/2019 DATE OF DISCHARGE: 11/30/2019 DISCHARGED BY: Dr. Roy REASON FOR ADMISSION: 74 years old male with past medical history of hypertension, CVA, paroxysmal atrial fibrillation, status post ablation, obesity, osteoarthritis, aortic aneurysm, status post repair, status post bioprosthetic AVR, hypertension, anxiety, thalamic pain syndrome, [place] [facility] [place] with strep bacteremia for possible aortic graft infection, presented with left- sided chest pain and headache. 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 Patient reported difficulty standing due to the weakness. Patient reported series of mini strokes since the last time he was in this facility. Patient also had recent admission to [facility] [place] for ablation treatment for atrial fibrillation. Chest pain reported as constant , 10 out of 10, pressure-like . Patient also reported headache. No fever or chills. No shortness of breath or congestion. No nausea, vomiting ,diarrhea or abdominal pain. No dysuria or flank pain. Upon evaluation patient was mildly tachycardic with heart rate 106, tachypneic with respiratory rate 23 ,blood pressure was elevated 160/99. Laboratory work-up revealed no leukocytosis, stable hemoglobin , hematocrit and platelet counts 138. Potassium 3.3. Stable electrolytes . BUN 12, creatinine 1.4. Glucose 183. Troponin negative , pro BNP 100. AST 71 ALT 104. Lipase 241. Urinalysis revealed +2 protein , pyuria and many bacteria. Lactic acid 3.8, repeated 1.7. Chest x-ray demonstrated low lung volumes with bronchovascular crowding. Unchanged cardiomegaly. Unchanged aortic endograft beginning in the arch and extending into the descending thoracic aorta. Unchanged sternotomy, mediastinal operative finding of aortic root repair. Otherwise no acute cardiopulmonary disease. CT of the head revealed no acute intracranial abnormality. Interval new multifocal small areas of encephalomalacia. Mild chronic senescent findings. Patient subsequently admitted for further management to telemetry floor. CONSULTANTS: dry chain offbearer Dr. Strickland neurologist Dr. Qureshi ID specialist Dr. Jesse Maddox GI specialist Dr. Murphy lithographic etcher Dr. Gracia pain specialist Dr. Linn HOSPITAL COURSE: Patient admitted to telemetry floor. [employer]er closely followed. Echocardiogram revealed preserved ejection fraction of 55% with mild left ventricular hypertrophy. No evidence of pericardial effusion. Venous duplex bilateral lower extremity revealed no evidence of acute DVT. Supplemental oxygen provided and titrated to keep pulse oximetry above 92% . Pulse oximetry remained stable on room air at all times while in the hospital. Serial troponin were negative. EKG revealed no acute ischemic changes. Patient was ruled out for acute ND. Patient remained in sinus rhythm. Urine toxicology screen was negative. Per neurologist, who closely followed , patient had embolic CVA . Patient started on Eliquis . Neurologist recommended CT angiogram of brain and neck , which patient declined at this time. Can be done as outpatient. Renal parameters and electrolytes were closely monitored , nephrotoxic's were avoided. Electrolytes corrected as needed. Potassium repleted and stabilized. Prior to discharge BUN 12 , creatinine 1.0. Rapid COVID-19 was negative. Urine culture revealed Klebsiella oxytoca with colony count 10-20. Patient was observed off antibiotic. Patient noted to have abnormal LFT. CK was within normal limits. Abdominal ultrasound revealed fatty liver and mildly complex left kidney cyst. Hepatitis panel was negative. LFT trending down . GI specialist cleared patient to continue on anticoagulation. GI specialist also recommended urology evaluation in future for complex renal cyst. Stool for occult blood was negative. Fall precaution maintained. Patient was working with physical therapist. Pain management was addressed as per pain specialist recommendation Patient clinically stabilized and was ready for discharge home with home health services. FINAL DIAGNOSES: Embolic CVA Chest pain in patient with history of coronary artery disease Paroxysmal atrial fibrillation , status post ablation in 2018 Status post bioprosthetic aortic valve replacement Status post thoracic aortic aneurysm repair Hypertension Acute kidney injury History of CVA with left hemiplegia Proteinuria Diabetes mellitus Transaminitis Pyuria Lactic acidosis- resolved Thalamic pain syndrome Lumbar postlaminectomy syndrome Osteoarthritis of knee History of total knee replacement DISCHARGE MEDICATIONS: See Medication Reconciliation list. DISCHARGE INSTRUCTIONS: Patient was discharged home with home health services. Follow up with primary care provider in one week. I have been assigned to dictate discharge summary for this account. I was not involved in the patient's management. Mable Nicole NP Dec 04, 2019 12:53
== END 2019-11-30 13:35 | disposition home health service (06) | DRG 65 ==
LOC: EMR 16:30 → EDBEDREQ 16:43 → 2W 17:28 → EDBEDREQ 23:08 → 2E 11-27 12:35 → 3E 11-29 20:29
DX: I63.81 Other cerebral infarction due to occlusion or stenosis of small artery (principal); N39.0 Urinary tract infection, site not specified; I69.354 Hemiplegia and hemiparesis following cerebral infarction affecting left non-dominant side; N17.9 Acute kidney failure, unspecified; I24.9 Acute ischemic heart disease, unspecified; I48.0 Paroxysmal atrial fibrillation; Z88.6 Allergy status to analgesic agent; Z88.8 Allergy status to other drugs, medicaments and biological substances; I25.10 Atherosclerotic heart disease of native coronary artery without angina pectoris; Z96.652 Presence of left artificial knee joint; Z95.2 Presence of prosthetic heart valve; E11.9 Type 2 diabetes mellitus without complications; M96.1 Postlaminectomy syndrome, not elsewhere classified; M17.10 Unilateral primary osteoarthritis, unspecified knee; G89.0 Central pain syndrome; R07.89 Other chest pain; R51 Headache
CPT/HCPCS: 36415; 70450; 71045; 76700; 80053; 80061; 80307; 81003; 82248; 82270; 82550; 82962; 82977; 83036; 83605; 83690; 83735; 83880; 84100; 84439; 84443; 84484; 84550; 85025; 85610; 85730; 86140; 86705; 86709; 86803; 87086; 87181; 87340; 93005; 93306; 93970; 96361; 96365; 96375; 96376; 99285; J2765; J7030; J8499; U0002

== ENCOUNTER 2019-12-04 18:22 | Inpatient (IN) | payer MEDICARE, MEDICAID ==
[~2019-12-04] VITALS: Ht 185.4 cm; Wt 113.4 kg
[~2019-12-04 18:22] MED LIST changes: +FELODIPINE ER5 MG PO; +LABETALOL HCL200 MG ORAL
--- NOTE | 2019-12-04 19:11 | Diagnostic Imaging Report ---
EXAM: CT Head Without Intravenous Contrast CLINICAL HISTORY: AMS TECHNIQUE: Axial computed tomography images of the head/brain without intravenous contrast. CTDI is 53.4 mGy and DLP is 1045.5 mGy-cm. One or more of the following dose reduction techniques were used: automated exposure control, adjustment of the mA and/or kV according to patient size, use of iterative reconstruction technique. COMPARISON: 11/26/2019 FINDINGS: Brain: Parenchymal volume loss. Nonspecific white matter hypoattenuation likely secondary to chronic microvascular ischemia. Cerebrovascular ASVD. Old small right temporal occipital encephalomalacia. Small right basal ganglia old lacunar infarct. No hemorrhage. Ventricles: Unremarkable. No ventriculomegaly. Bones/joints: Unremarkable. No acute fracture. Soft tissues: Unremarkable. Sinuses: Unremarkable as visualized. No acute sinusitis. Mastoid air cells: Unremarkable as visualized. No mastoid effusion. IMPRESSION: 1. No acute intracranial abnormality. 2. Mild chronic senescent findings above. 3. Old small right temporal occipital encephalomalacia. 4. Small right basal ganglia old lacunar infarct.
--- NOTE | 2019-12-04 19:22 | Emergency Room Report ---
History of Present Illness General Chief Complaint: Dyspnea/Respdistress Source: Patient Present Illness HPI 74-year-old male with a history of CVA, CAD, CHF here with shortness of breath, bilateral leg swelling, left-sided weakness. Patient says that all the symptoms started 2 hours prior to come to the emergency department. Patient was recently discharged from the hospital a few days ago for chest pain with CAD and said that he was given an IV diuretic at that time to help with the leg swelling. He was discharged however without any diuretics and says that the bilateral legs have been swelling up today. Denies fevers, chills, chest pain, palpitations, back pain, abdominal pain, nausea, vomiting, diarrhea, dysuria. Patient says that he is in a severe amount of lower extremity pain secondary to the swelling. He is also complaining of left-sided weakness which he normally has at his baseline after an old CVA but says that this left-sided weakness is now slightly worse. Takes Eliquis and has been compliant. Allergies: Coded Allergies: MORPHINE (Verified Allergy, Severe, 11/07/10) NITROGLYCERIN (Verified Allergy, Severe, 11/07/10) KETOROLAC (Unverified Allergy, Intermediate, 03/14/14) FISH CONTAINING PRODUCTS (Verified Allergy, Mild, 07/20/14) per patient, "it knocks me out" ACETAMINOPHEN (Unverified Allergy, Unknown, 07/19/14) CODEINE (Unverified Allergy, Unknown, 11/03/13) UNKNOWN DIPHENHYDRAMINE (Unverified Allergy, Unknown, 09/30/14) IBUPROFEN (Unverified Allergy, Unknown, 11/03/13) UNKNOWN PROCHLORPERAZINE (Unverified Allergy, Unknown, 07/19/14) GABAPENTIN (Verified Adverse Reaction, Intermediate, 07/20/14) Per patient, it makes him sweat, throws up, and "blacks out" Uncoded Allergies: IV contrast (Allergy, Unknown, 11/30/19) COVID-19 Screening Contact w/high risk pt: No Experienced COVID-19 symptoms?: Yes COVID-19 Testing performed [employer]: Yes COVID-19 Screening: Negative COVID-19 COVID-19 Testing Source: unk Nursing Documentation-PMH Past Medical History: No History, Except For Hx Cardiac Problems: Yes Hx Hypertension: Yes Hx Pacemaker: No Hx Asthma: No Hx COPD: No Hx Diabetes: Yes Hx Cancer: No Hx Gastrointestinal Problems: No Hx Dialysis: No Hx Neurological Problems: No Hx Cerebrovascular Accident: Yes Hx Transient Ischemic Attacks: No Hx Dementia: No Hx Alzheimer's Disease: No Hx Parkinson's Disease: No Hx Meningitis: No Hx Encephalitis: Yes Hx Seizures: No Hx Epilepsy: No Hx Multiple Sclerosis: No Hx Cerebral Palsy: No Hx Amyotrophic Lat Sclerosis: No Hx Guillian-[place] Syndrome: No Hx Paralysis: No Hx Peripheral Neuropathy: No Hx Spinal Cord Injury: No Hx Head Trauma: No Hx Traumatic Brain Injury: No Hx Memory Loss: No Hx Concentration Difficulty: No Hx Speech Problem: No Hx Tremors: No Hx Vertigo: No Hx Dizziness: No Hx Syncope: No Hx Headaches: No Hx Aphasia: No Hx Dysphasia: No Hx Numbness: No Hx Weakness: No Hx Fatigue: Yes Hx Neurologic Surgery: No Hx Brain Shunt: No Review of Systems All Other Systems: negative except mentioned in HPI Physical Exam Vital Signs Date Time Temp Pulse Resp B/P (MAP) Pulse Ox O2 Delivery O2 Flow Rate FiO2 12/04/19 18:32 97.9 86 20 162/87 (112) 96 Room Air Sp02 EP Interpretation: reviewed, normal General Appearance: no apparent distress, alert, non-toxic Head: normocephalic, atraumatic Eyes: bilateral eye normal inspection, bilateral eye PERRL ENT: hearing grossly normal, normal pharynx, no angioedema, normal voice Neck: full range of motion, supple/symm/no masses Respiratory: chest non-tender, lungs clear, normal breath sounds, speaking full sentences Cardiovascular #1: regular rate, rhythm, no edema Cardiovascular #2: 2+ carotid (R), 2+ carotid (L), 2+ radial (R), 2+ radial (L), 2+ dorsalis pedis (R), 2+ dorsalis pedis (L) Gastrointestinal: normal bowel sounds, non tender, soft, non-distended, no guarding, no rebound Rectal: deferred Genitourinary: normal inspection, no CVA tenderness Musculoskeletal: back normal, normal range of motion, gait/station normal, non- tender Neurologic: alert, motor strength/tone normal, oriented x3 - Appreciable weakness of the left upper and left lower extremity compared to the right upper and right lower extremity. Positive pronator drift left upper extremity. Moderate effort against gravity of the left upper and left lower extremities but both hit bed after a few seconds. NIH stroke scale of 5, sensory intact, responsive, speech normal, sensory deficit, other Psychiatric: judgement/insight normal, memory normal, mood/affect normal, no suicidal/homicidal ideation Reflexes: 3+ bicep (R), 3+ bicep (L), 3+ tricep (R), 3+ tricep (L), 3+ knee (R), 3+ knee (L) Lymphatic: no adenopathy Medical Decision Making Diagnostic Impression: Primary Impression: CHF (congestive heart failure) Additional Impressions: Left-sided weakness CVA (cerebral vascular accident) HTN (hypertension) CAD (coronary artery disease) ER Course Laboratory Tests Test 12/04/19 19:22 White Blood Count 8.1 K/UL (4.8-10.8) Red Blood Count 4.58 M/UL (4.70-6.10) L Hemoglobin 13.9 G/DL (14.2-18.0) L Hematocrit 42.6 % (42.0-52.0) Mean Corpuscular Volume 93 FL (80-99) Mean Corpuscular Hemoglobin 30.3 PG (27.0-31.0) Mean Corpuscular Hemoglobin Concent 32.6 G/DL (32.0-36.0) Red Cell Distribution Width 14.0 % (11.6-14.8) Platelet Count 143 K/UL (150-450) L Mean Platelet Volume 9.4 FL (6.5-10.1) Neutrophils (%) (Auto) 59.1 % (45.0-75.0) Lymphocytes (%) (Auto) 25.3 % (20.0-45.0) Monocytes (%) (Auto) 12.8 % (1.0-10.0) H Eosinophils (%) (Auto) 1.5 % (0.0-3.0) Basophils (%) (Auto) 1.4 % (0.0-2.0) Prothrombin Time 10.5 SEC (9.30-11.50) Prothrombin Time INR 0.9 (0.9-1.1) Activated Partial Thromboplast Time 26 SEC (23-33) Sodium Level 142 MMOL/L (136-145) Potassium Level 3.9 MMOL/L (3.5-5.1) Chloride Level 108 MMOL/L (98-107) H Carbon Dioxide Level 24 MMOL/L (21-32) Anion Gap 10 mmol/L (5-15) Blood Urea Nitrogen 10 mg/dL (7-18) Creatinine 1.2 MG/DL (0.55-1.30) Estimated Glomerular Filtration Rate > 60 mL/min (>60) Glucose Level 141 MG/DL (74-106) H Calcium Level 9.2 MG/DL (8.5-10.1) Total Bilirubin 1.2 MG/DL (0.2-1.0) H Direct Bilirubin 0.2 MG/DL (0.0-0.3) Aspartate Amino Transferase (AST) 77 U/L (15-37) H Alanine Aminotransferase (ALT) 122 U/L (12-78) H Alkaline Phosphatase 162 U/L (46-116) H Troponin I 0.005 ng/mL (0.000-0.056) Pro-B-Type Natriuretic Peptide 112 pg/mL (0-125) Total Protein 6.9 G/DL (6.4-8.2) Albumin 3.4 G/DL (3.4-5.0) Globulin 3.5 g/dL Albumin/Globulin Ratio 1.0 (1.0-2.7) Triglycerides Level 91 MG/DL (30-150) Cholesterol Level 145 MG/DL (< 200) LDL Cholesterol 71 mg/dL (<100) HDL Cholesterol 57 MG/DL (40-60) Cholesterol/HDL Ratio 2.5 (3.3-4.4) L EKG: Left anterior fascicular block. Rate 93 bpm. Leftward axis. No acute ST or T wave abnormalities. No ectopy. Sinus rhythm CT head: No acute intracranial abnormality. Mild chronic senescent findings. Old small right temporal occipital encephalomalacia. Small right basal ganglia old lacunar infarct Total critical care time: Approximately 35 minutes Due to a high probability of clinically significant, life threatening deterioration, the patient required the highest level of preparedness to intervene emergently and I personally spent this critical care time directly and personally managing the patient. This critical care time included obtaining a history, examining the patient, pulse oximetry, ordering and reviewing studies, ordering treatments, evaluating response to treatment and updating management plan as needed, frequent reassessment and discussion with other providers as well as arranging for ultimate disposition. This critical to care time was performed to assess and manage the high probability of life-threatening deterioration that could result in multiorgan failure. This critical care time is separate from the separately billable procedures and treating other patients. 74-year-old male with a history of CVA with residual left-sided weakness here with left-sided weakness, lower extremity swelling, shortness of breath. Patient says that when he was in the hospital he received diuretics but then when he was discharged he never did receive any. Says that his lower extremities have been swelling acutely today. He did have evidence of 3+ pitting edema of the bilateral lower extremities. Patient required multiple doses of pain medication secondary to the swelling. He said that his left-sided weakness became acutely worse about 2 hours prior to coming to the emergency department. He had an NIH stroke scale of 5. Code stroke was called soon after the patient arrived. He had a stat CT head that did not show any acute abnormalities new from the patient's previous CT head that he had on November 25. He could not undergo a CT angiography of the head and neck secondary to a self-reported severe contrast allergy. Labs were largely unremarkable. Patient was given aspirin and IV Lasix. Admitted to telemetry in stable condition. Last Vital Signs Date Time Temp Pulse Resp B/P (MAP) Pulse Ox O2 Delivery O2 Flow Rate FiO2 12/04/19 18:32 97.9 86 20 162/87 (112) 96 Room Air Wilton Bryant M.D. Dec 04, 2019 19:22
[2019-12-04 19:30] VITALS: BP 159/84
[2019-12-04] MEDS ORDERED: Hydromorphone 0.5mg/0.5ml inj IVP ONE (19:30)
--- NOTE | 2019-12-04 19:30 | NUR ---
ED Nurse Note: Received report from KRYSTIAN Olguin that pt walked in c/o bilateral leg swelling and dyspnea. Respirations even and unlabored on room air. Vitals stable as documented. A+Ox4, speaking in complete sentences. Medical hx of CHF and CVA.
[2019-12-04 19:34] LABS: BASOPHILS % (AUTO) 1.4 % (0.0-2.0); EOSINOPHILS % (AUTO) 1.5 % (0.0-3.0); HEMATOCRIT 42.6 % (42.0-52.0); HEMOGLOBIN 13.9 G/DL (14.2-18.0); LYMPHOCYTES % (AUTO) 25.3 % (20.0-45.0); MEAN CORPUSCULAR VOLUME 93 FL (80-99); MONOCYTES % (AUTO) 12.8 % (1.0-10.0); NEUTROPHILS % (AUTO) 59.1 % (45.0-75.0); PLATELET COUNT 143 K/UL (150-450); RED BLOOD COUNT 4.58 M/UL (4.70-6.10); WHITE BLOOD COUNT 8.1 K/UL (4.8-10.8)
[2019-12-04 19:45] LABS: INR 0.9 (0.9-1.1)
[2019-12-04 19:51] LABS: ANION GAP 10 mmol/L (5-15); BLOOD UREA NITROGEN 10 mg/dL (7-18); CALCIUM 9.2 MG/DL (8.5-10.1); CARBON DIOXIDE 24 MMOL/L (21-32); CHLORIDE 108 MMOL/L (98-107); CREATININE 1.2 MG/DL (0.55-1.30); POTASSIUM 3.9 MMOL/L (3.5-5.1); SODIUM 142 MMOL/L (136-145)
[2019-12-04 19:57] LABS: CHOLESTEROL 145 MG/DL (< 200); HDL CHOLESTEROL 57 MG/DL (40-60); TRIGLYCERIDES 91 MG/DL (30-150)
[2019-12-04 20:09] LABS: ALANINE AMINOTRANSFERASE 122 U/L (12-78); ALBUMIN 3.4 G/DL (3.4-5.0); ALKALINE PHOSPHATASE 162 U/L (46-116); ASPARTATE AMINO TRANSFERASE 77 U/L (15-37); BILIRUBIN,TOTAL 1.2 MG/DL (0.2-1.0)
[2019-12-04 20:12] LABS: BILIRUBIN,DIRECT 0.2 MG/DL (0.0-0.3)
--- NOTE | 2019-12-04 20:12 | NUR ---
ED Nurse Note: Pt still complaining of pain. Reports that "0.5 mg won't do anything for him." Made ED MD Aware.
--- NOTE | 2019-12-04 20:40 | NUR ---
ED Nurse Note: after inserted swab into nare, pt grabbed RN's wrist and pulled swab out, saying it was too uncomfortable.
--- NOTE | 2019-12-04 20:43 | NUR ---
ED Nurse Note: covid swab sent to lab
[2019-12-04] MEDS ORDERED: HYDROmorphone 1mg/ml Carpuject IVP ONE (20:45)
--- NOTE | 2019-12-04 20:58 | NUR ---
ED Nurse Note: report given to KRYSTIAN Grover on 2E
--- NOTE | 2019-12-04 21:00 | NUR ---
ED Nurse Note: Pt transferred safely to 2e on the monitor.
--- NOTE | 2019-12-04 21:20 | NUR ---
NURSE NOTES: Patient received from Olga BOLAND. Brought in by Yary, patient was able to ambulate to bed. Alert and oriented x4. Saturating on Room air. Vital signs are stable. Patient was placed on front desk monitor and gown. Patient complaining of 9/10 pain on his left side. IV site patent and intact on Left AC 20G. Call light and bedside table within reach. Will continue plan of care
--- NOTE | 2019-12-04 21:28 | NUR ---
NURSE NOTES: Called Dr. Roy for admission orders, verified and carried out. Patient complaining of 9/10 pain asked doctor for pain medicine awaiting call back.
--- NOTE | 2019-12-04 21:48 | NUR ---
NURSE NOTES: Dr. Roy Ordered for Morphine 2mg iv q5 prn but patient is allergic. Notified Doctor awaiting callback.
--- NOTE | 2019-12-04 21:58 | NUR ---
NURSE NOTES: Dr. Roy referred me to Dr. Linn for pain medicine. Called doctor and left a message.
--- NOTE | 2019-12-04 22:20 | NUR ---
NURSE NOTES: Dr. Linn called back and ordered for Dilaudid 0.5MG Q4 PRN. Asked doctor if i can get stronger dosage in case patient asks for later tonight and doctor refused and said he will check up on patient in the morning. Orders verified and carried out.
[2019-12-04] MEDS: Hydromorphone 0.5mg/0.5ml inj IVP PRN (22:49)
[2019-12-05] VITALS: BP 141/89
--- NOTE | 2019-12-05 01:15 | NUR ---
NURSE NOTES: Patient still complaining of pain asked if he could continue his home medicine tramadol 50MG. Called for Dr. Rutledge and left a message. Awaiting call back
--- NOTE | 2019-12-05 01:45 | NUR ---
NURSE NOTES: Left message again for Dr. Linn for continuation of Tramadol as per patient's request. Awaiting call back. Also notified Dr. Roy of the situation and referred me back to Dr. Linn.
[2019-12-05] MEDS: Hydromorphone 0.5mg/0.5ml inj IVP PRN (02:57)
--- NOTE | 2019-12-05 03:15 | NUR ---
NURSE NOTES: Patient called and wants to leave, Refused to sign AMA paper and belongings list witness on bedside. DC phototypesetting equipment monitor and IV site. Notified Dr. Roy.
--- NOTE | 2019-12-05 03:46 | NUR ---
NURSE NOTES: Dr. Roy ordered for morphine 2mg/iv q4 prn but patient allergic, notified doctor. awaiting call back Addendum: 12/05/19 at 7489 by Lenore Escalera RN Wrong time documentation
--- NOTE | 2019-12-05 11:15 | Diagnostic Imaging Report ---
Indication: Shortness of breath Technique: One view of the chest Comparison: 11/26/2019 Findings: Heart size is borderline enlarged. There is a thoracic aortic endograft. The lungs and pleural spaces are clear. Findings are unchanged Impression: Unchanged, over one day, findings as above.
--- NOTE | 2019-12-05 17:42 | Cardiology Report ---
APPROVED REPORT EKG Measurement Heart [id number] <Conclusion> Sinus rhythm with premature atrial complexes Left anterior fascicular block Moderate voltage criteria for LVH, may be normal variant T wave abnormality, consider lateral ischemia Abnormal ECG
--- NOTE | 2019-12-05 17:44 | History and Physical Report ---
DATE OF ADMISSION: 12/04/2019 HISTORY OF PRESENT ILLNESS: The patient left against medical advice couple of hours after being admitted to the floor so I did not have chance to see him because he left couple of hours from the time of admission and signed against medical advice in the middle of the night so could see the patient so please let this serve as my H and P since the patient left against medical advice before I was able to see the patient. The patient was originally being admitted for CHF exacerbation and was given Lasix, also had recent CVA. I have consulted consultants; however, the patient left AMA, so let this serve as H and P for this admission. Rafaela Roy M.D. DR: Hunter JOB#: [id number] CC:
--- NOTE | 2019-12-06 14:37 | Discharge Summary ---
Discharge Summary Discharge Summary _ DATE OF ADMISSION: 12/04/2019 DATE OF DISCHARGE: 12/05/2019 Patient left AGAINST MEDICAL ADVICE REASON FOR ADMISSION: 74 years old male with past medical history of coronary artery disease, congestive heart failure, CVA, who was recently hospitalized , presented with shortness of breath, bilateral leg swelling, and left-sided weakness. Patient reported that symptoms started 2 hours prior to presentation to the emergency department. Patient recently discharged from the hospital (2 days ago ) for chest pain with coronary artery disease and peripheral edema. Patient reported that he was given IV diuretic at the hospital , which helped with the leg swelling. Patient was discharged without any diuretics, and legs started to swell again. He denied fever or chills. No chest pain or palpitation. He denied abdominal pain, nausea, vomiting, diarrhea, or dysuria. He reported lower extremity pain secondary to swelling. H He also reported left-sided weakness , normally at his baseline , after old CVA, but somewhat worse. Patient reports taking Eliquis and being compliant with this medication. Upon evaluation blood pressure was 162/87, otherwise all vital signs were stable. Laboratory work-up revealed no leukocytosis, stable hemoglobin ,hematocrit and platelet count. Stable electrolytes and renal parameters Glucose 141 Troponin negative , pro BNP 112 Lipid panel stable AST 77, ALT 122 Rapid COVID-19 was negative ECG revealed left anterior fascicular block, no acute ST or T wave abnormalities, no ectopy . CT of the head revealed no acute cardiopulmonary pathology. Patient received Lasix , analgesic and admitted for further management. HOSPITAL COURSE: Patient admitted to telemetry floor . Cardiology and pain specialist consults requested. Volumes were closely monitored . Telemetry revealed sinus rhythm with some PVCs. On 12/04 patient decided to sign AGAINST MEDICAL ADVICE. The risks and consequences of signing AGAINST MEDICAL ADVICE were discussed with patient in detail. Patient verbalized understanding, nevertheless decided to leave. Patient declined to sign AGAINST MEDICAL ADVICE form. FINAL DIAGNOSES: CHF leg swelling hypertension I have been assigned to dictate discharge summary for this account. I was not involved in the patient's management. Mable Nicole NP Dec 06, 2019 14:37
== END 2019-12-05 03:30 | disposition left against medical advice (07) | DRG 292 ==
LOC: EMR 20:13 → 2E 20:16 → EDBEDREQ 20:29 → 2E 21:03
DX: I11.0 Hypertensive heart disease with heart failure (principal); I69.354 Hemiplegia and hemiparesis following cerebral infarction affecting left non-dominant side; I50.9 Heart failure, unspecified; I25.10 Atherosclerotic heart disease of native coronary artery without angina pectoris; Z88.6 Allergy status to analgesic agent; Z88.8 Allergy status to other drugs, medicaments and biological substances; I44.4 Left anterior fascicular block
CPT/HCPCS: 36415; 70450; 71045; 80053; 80061; 82248; 83880; 84484; 85025; 85610; 85730; 93005; 96374; 96375; 96376; 99291; U0002

== ENCOUNTER 2019-12-10 13:50 | Emergency (ER) | payer MEDICARE, MEDICAID ==
[~2019-12-10] VITALS: Ht 185.4 cm; Wt 104.3 kg
[2019-12-10 14:08] VITALS: BP 150/81
--- NOTE | 2019-12-10 14:08 | NUR ---
ED Nurse Note: pt wheeled into ED from home c/o bilateral edema of feet, pt reports feeling dizzy and generalized pain. Pt reported that he fell and denies hitting his head. Pt is alert, oriented x4, breathing even and unlabored, no signs of acute distress noted. Vitals stable as documented.
[2019-12-10] MEDS ORDERED: HYDROcodone/Acetamin 5/325 tab ORAL ONE (14:15)
--- NOTE | 2019-12-10 14:18 | NUR ---
ED Nurse Note: blood sent to lab.
--- NOTE | 2019-12-10 14:20 | Emergency Room Report ---
History of Present Illness General Chief Complaint: Generalized Weakness Source: Patient Present Illness HPI Patient is a 74-year-old male who presents for increased generalized weakness as well as pain to multiple areas. Prior history of multiple joint surgeries in the past. Denies any fever. Patient had recent hospitalization and had recent echocardiogram as well. Patient had recently left the hospital AGAINST MEDICAL ADVICE. He reports having prior history of multiple medication allergies. Patient was noted to have some prior thoracic surgery as well as prior valve replacement surgery. Had reported increased palpitations. Reports being compliant with his Eliquis. Had paroxysmal atrial fibrillation. Also reports having porcine valve placement. Allergies: Coded Allergies: MORPHINE (Verified Allergy, Severe, 11/07/10) NITROGLYCERIN (Verified Allergy, Severe, 11/07/10) KETOROLAC (Unverified Allergy, Intermediate, 03/14/14) FISH CONTAINING PRODUCTS (Verified Allergy, Mild, 07/20/14) per patient, "it knocks me out" ACETAMINOPHEN (Unverified Allergy, Unknown, 07/19/14) CODEINE (Unverified Allergy, Unknown, 11/03/13) UNKNOWN DIPHENHYDRAMINE (Unverified Allergy, Unknown, 09/30/14) IBUPROFEN (Unverified Allergy, Unknown, 11/03/13) UNKNOWN PROCHLORPERAZINE (Unverified Allergy, Unknown, 07/19/14) GABAPENTIN (Verified Adverse Reaction, Intermediate, 07/20/14) Per patient, it makes him sweat, throws up, and "blacks out" Uncoded Allergies: IV contrast (Allergy, Unknown, 11/30/19) COVID-19 Screening Contact w/high risk pt: No Experienced COVID-19 symptoms?: No COVID-19 Testing performed WEIGHT CHECKER: No Patient History Past Medical History: see triage record Reviewed Nursing Documentation: PMH: Agreed; PSxH: Agreed Nursing Documentation-PMH Past Medical History: No History, Except For Hx Cardiac Problems: Yes Hx Hypertension: Yes Hx Pacemaker: No Hx Asthma: No Hx COPD: No Hx Diabetes: Yes Hx Cancer: No Hx Gastrointestinal Problems: No Hx Dialysis: No Hx Neurological Problems: Yes Hx Cerebrovascular Accident: Yes Hx Transient Ischemic Attacks: Yes Hx Dementia: No Hx Alzheimer's Disease: No Hx Parkinson's Disease: No Hx Meningitis: No Hx Encephalitis: Yes Hx Seizures: No Hx Epilepsy: No Hx Multiple Sclerosis: No Hx Cerebral Palsy: No Hx Amyotrophic Lat Sclerosis: No Hx Guillian-[place] Syndrome: No Hx Paralysis: No Hx Peripheral Neuropathy: No Hx Spinal Cord Injury: No Hx Head Trauma: No Hx Traumatic Brain Injury: No Hx Memory Loss: No Hx Concentration Difficulty: No Hx Speech Problem: No Hx Tremors: No Hx Vertigo: No Hx Dizziness: No Hx Syncope: No Hx Headaches: No Hx Aphasia: No Hx Dysphasia: No Hx Numbness: No Hx Weakness: No Hx Fatigue: Yes Hx Neurologic Surgery: No Hx Brain Shunt: No Review of Systems All Other Systems: negative except mentioned in HPI Physical Exam Vital Signs Date Time Temp Pulse Resp B/P (MAP) Pulse Ox O2 Delivery O2 Flow Rate FiO2 12/10/19 14:03 98.1 90 20 161/82 (108) 97 Room Air Sp02 EP Interpretation: reviewed, normal General Appearance: normal inspection, well appearing, no apparent distress, alert, GCS 15, non-toxic, obese, Chronically Ill Head: atraumatic ENT: normal ENT inspection, hearing grossly normal, normal voice Neck: normal inspection, full range of motion, supple, no bony tend Respiratory: normal inspection, lungs clear, normal breath sounds, no respiratory distress, no retraction, no wheezing Cardiovascular #1: normal peripheral pulses, no edema, extra beats, other - Pulses present in all extremities, midsystolic click, edema Gastrointestinal: normal inspection, normal bowel sounds, non tender, soft, no guarding, no hernia Genitourinary: no CVA tenderness Musculoskeletal: normal inspection, back normal, normal range of motion Neurologic: alert, oriented x3, motor weakness - Slight left-sided motor weakness, responsive, speech normal, normal inspection Psychiatric: normal inspection, judgement/insight normal, mood/affect normal Skin: no rash Medical Decision Making Diagnostic Impression: Primary Impression: CHF (congestive heart failure) Additional Impressions: Paroxysmal atrial fibrillation H/O aortic valve replacement ER Course Patient presented for generalized pain. Differential diagnosis include was not limited to arthritis, neuropathy, CHF, arrhythmia among others. Because of complexity of patient's case laboratory tests and imaging studies were ordered. EKG Diagnostic Results Rate: normal Rhythm: NSR ST Segments: other - Left anterior fascicular block, nonspecific T wave changes Last Vital Signs Date Time Temp Pulse Resp B/P (MAP) Pulse Ox O2 Delivery O2 Flow Rate FiO2 12/10/19 14:03 98.1 90 20 161/82 (360) 97 Room Air Bharat Lowe MD Dec 10, 2019 14:20
[2019-12-10 14:49] LABS: BASOPHILS % (AUTO) 1.1 % (0.0-2.0); EOSINOPHILS % (AUTO) 1.8 % (0.0-3.0); HEMATOCRIT 41.3 % (42.0-52.0); HEMOGLOBIN 13.9 G/DL (14.2-18.0); LYMPHOCYTES % (AUTO) 30.1 % (20.0-45.0); MEAN CORPUSCULAR VOLUME 89 FL (80-99); MONOCYTES % (AUTO) 12.8 % (1.0-10.0); NEUTROPHILS % (AUTO) 54.2 % (45.0-75.0); PLATELET COUNT 169 K/UL (150-450); RED BLOOD COUNT 4.65 M/UL (4.70-6.10); RED CELL DISTRIBUTION WIDTH 12.1 % (11.6-14.8); WHITE BLOOD COUNT 6.7 K/UL (4.8-10.8)
--- NOTE | 2019-12-10 14:51 | NUR ---
ED Nurse Note: pink top sent, pt unable to void at this time.
--- NOTE | 2019-12-10 15:30 | NUR ---
ED Nurse Note: urine sent to lab
[2019-12-10 15:49] LABS: ANION GAP 10 mmol/L (5-15); BLOOD UREA NITROGEN 10 mg/dL (7-18); CALCIUM 9.2 MG/DL (8.5-10.1); CARBON DIOXIDE 26 MMOL/L (21-32); CHLORIDE 107 MMOL/L (98-107); CREATININE 1.1 MG/DL (0.55-1.30); POTASSIUM 3.5 MMOL/L (3.5-5.1); SODIUM 143 MMOL/L (136-145)
[2019-12-10 15:51] LABS: APPEARANCE,URINE CLEAR; BILIRUBIN, URINE NEGATIVE (NEGATIVE); COLOR,URINE PALE YELLOW; GLUCOSE, URINE (UA) NEGATIVE (NEGATIVE); KETONES,URINE NEGATIVE (NEGATIVE); LEUKOCYTE ESTERASE ,URINE NEGATIVE (NEGATIVE); NITRITE,URINE NEGATIVE (NEGATIVE); PH,URINE 6.5 (4.5-8.0); PROTEIN,URINE NEGATIVE (NEGATIVE); UROBILINOGEN,URINE NORMAL MG/DL (0.0-1.0)
[2019-12-10 15:59] LABS: ALANINE AMINOTRANSFERASE 127 U/L (12-78); ALBUMIN 3.6 G/DL (3.4-5.0); ALKALINE PHOSPHATASE 118 U/L (46-116); ASPARTATE AMINO TRANSFERASE 95 U/L (15-37)
[2019-12-10] MEDS ORDERED: NORCO 5-325 TA1 EAC1 ORAL (16:11)
[2019-12-10] MEDS ORDERED: HYDROCHLOROTHIA25 MG ORAL (16:11)
[2019-12-10 16:18] VITALS: BP 149/81
--- NOTE | 2019-12-10 16:18 | Diagnostic Imaging Report ---
EXAM: XR Chest, 1 View CLINICAL HISTORY: SOB TECHNIQUE: Frontal view of the chest. COMPARISON: 12/04/19. FINDINGS/IMPRESSION: Redemonstrated cardiomegaly with thoracic aortic stent graft. No overt pulmonary edema. No consolidation.
--- NOTE | 2019-12-10 16:18 | NUR ---
ER DISCHARGE NOTE: Patient is cleared to be discharged per ERMD, pt is aox4, on room air, with stable vital signs. pt was given dc and prescription instructions, pt was able to verbalize understanding, pt id band and iv site removed without complications. pt is able to ambulate with steady gait. pt took all belongings.
--- NOTE | 2019-12-12 20:05 | Cardiology Report ---
APPROVED REPORT EKG Measurement Heart [id number] <Conclusion> Sinus tachycardia Otherwise normal ECG
== END 2019-12-10 16:20 | disposition home or self-care (01) ==
LOC: EMR 14:37
DX: I11.0 Hypertensive heart disease with heart failure (principal); I50.9 Heart failure, unspecified; I48.0 Paroxysmal atrial fibrillation; Z95.2 Presence of prosthetic heart valve; I44.4 Left anterior fascicular block; Z79.01 Long term (current) use of anticoagulants; Z88.6 Allergy status to analgesic agent; Z91.041 Radiographic dye allergy status; E11.9 Type 2 diabetes mellitus without complications; Z86.73 Personal history of transient ischemic attack (TIA), and cerebral infarction without residual deficits; E66.9 Obesity, unspecified; Z68.30 Body mass index [BMI] 30.0-30.9, adult
CPT/HCPCS: 36415; 71045; 80053; 80307; 81001; 82962; 83880; 84443; 84484; 85025; 85610; 85730; 86140; 86850; 86900; 86901; 93005; 96374; 99284; J1940

== ENCOUNTER 2019-12-23 17:09 | Inpatient (IN) | payer MEDICARE, MEDICAID ==
[~2019-12-23] VITALS: Ht 182.9 cm; Wt 119.7 kg
[~2019-12-23 17:09] MED LIST changes: +HYDROCHLOROTHIA25 MG ORAL
[2019-12-23 17:21] VITALS: BP 158/91
--- NOTE | 2019-12-23 17:21 | NUR ---
ED Nurse Note: Pt walked in to ED from home c/o left side chest pain, non radiating with mild SOB x couple of days. Pt also reports blood in the stool and generalized body pain. Pt AAOx4, verbally responsive. Breathing even and unlabored, on rooma ir. Pt placed on monitoring engineer.
--- NOTE | 2019-12-23 17:33 | NUR ---
ED Nurse Note: Xray at bedside.
--- NOTE | 2019-12-23 17:40 | NUR ---
ED Nurse Note: IV line established. Blood specimen collected, sent to lab.
--- NOTE | 2019-12-23 17:40 | Emergency Room Report ---
History of Present Illness General Chief Complaint: Chest Pain Source: Patient, Medical Record Present Illness HPI Disclaimer: Please note that this report is being documented using DRAGON technology. This can lead to erroneous entry secondary to incorrect interpretation by the dictating instrument. HPI: This a 74-year-old male presenting for evaluation of chest and abdominal pain. Symptoms began last night. He states he has a tightness and pressure over the left chest that does not radiate associated with mild shortness of breath. Denies fever, chills or cough. He also reports left lower quadrant abdominal pain and bright red bleeding per rectum last night. States he has had this pain in the past. Also notes a history of repaired thoracic aneurysm several years ago as well as aortic valve repair. He does not know whether or not he had an abdominal aortic aneurysm whether or not that was repaired. Chest pain appears to be improving. He states his abdominal pain is getting worse. No further rectal bleeding noted. Patient is taking Eliquis PMH: CAD, thoracic aneurysm, aortic valve repair, atrial fibrillation PSH: Mitral valve repair, thoracic aneurysm repair Allergies: Codeine, morphine, fish products, gabapentin, Tylenol Social Hx: Reviewed Allergies: Coded Allergies: MORPHINE (Verified Allergy, Severe, 11/07/10) NITROGLYCERIN (Verified Allergy, Severe, 11/07/10) KETOROLAC (Unverified Allergy, Intermediate, 03/14/14) FISH CONTAINING PRODUCTS (Verified Allergy, Mild, 07/20/14) per patient, "it knocks me out" ACETAMINOPHEN (Unverified Allergy, Unknown, 07/19/14) CODEINE (Unverified Allergy, Unknown, 11/03/13) UNKNOWN DIPHENHYDRAMINE (Unverified Allergy, Unknown, 09/30/14) IBUPROFEN (Unverified Allergy, Unknown, 11/03/13) UNKNOWN PROCHLORPERAZINE (Unverified Allergy, Unknown, 07/19/14) GABAPENTIN (Verified Adverse Reaction, Intermediate, 07/20/14) Per patient, it makes him sweat, throws up, and "blacks out" Uncoded Allergies: IV contrast (Allergy, Unknown, 11/30/19) COVID-19 Screening Contact w/high risk pt: No Experienced COVID-19 symptoms?: No COVID-19 Testing performed HOME ECONOMIST: No Nursing Documentation-PMH Past Medical History: No History, Except For Hx Cardiac Problems: Yes Hx Hypertension: Yes Hx Pacemaker: No Hx Asthma: No Hx COPD: No Hx Diabetes: Yes Hx Cancer: No Hx Gastrointestinal Problems: No Hx Dialysis: No Hx Neurological Problems: Yes Hx Cerebrovascular Accident: Yes Hx Transient Ischemic Attacks: Yes Hx Dementia: No Hx Alzheimer's Disease: No Hx Parkinson's Disease: No Hx Meningitis: No Hx Encephalitis: Yes Hx Seizures: No Hx Epilepsy: No Hx Multiple Sclerosis: No Hx Cerebral Palsy: No Hx Amyotrophic Lat Sclerosis: No Hx Gu[place] Syndrome: No Hx Paralysis: No Hx Peripheral Neuropathy: No Hx Spinal Cord Injury: No Hx Head Trauma: No Hx Traumatic Brain Injury: No Hx Memory Loss: No Hx Concentration Difficulty: No Hx Speech Problem: No Hx Tremors: No Hx Vertigo: No Hx Dizziness: No Hx Syncope: No Hx Headaches: No Hx Aphasia: No Hx Dysphasia: No Hx Numbness: No Hx Weakness: No Hx Fatigue: Yes Hx Neurologic Surgery: No Hx Brain Shunt: No Review of Systems All Other Systems: negative except mentioned in HPI Physical Exam Vital Signs Date Time Temp Pulse Resp B/P (MAP) Pulse Ox O2 Delivery O2 Flow Rate FiO2 12/23/19 17:15 98.6 66 18 158/91 (113) 99 Room Air General: Awake and alert, no acute distress HEENT: NC/AT. EOMI. Cardiovascular: RRR. S1 and S2 normal. No murmur appreciated Resp: Normal work of breathing. No cough, wheezing or crackles appreciated Abdomen: Abdomen is soft, nondistended. Tenderness palpation of left lower quadrant. No guarding. No tenderness in the other quadrants. No rebound. Negative Smith's. Skin: Intact. Sternotomy scar is clean dry and intact MSK: Normal tone and bulk. Moving all extremities. No obvious deformity. Neuro: Awake and alert. Mentating appropriately. Medical Decision Making Diagnostic Impression: Primary Impression: Ileus Additional Impression: Chest pain ER Course 74-year-old male past history of thoracic aneurysm repair, aortic valve repair, CHF, CAD presents for evaluation of chest and abdominal pain. Concern for ACS, arrhythmia, pneumonia, bronchitis, aortic dissection, aortic aneurysm, abdominal aneurysm with herald bleed, diverticulosis, diverticulitis among others. Troponin negative. EKG is nonischemic. Patient refused CTA as he states he has had bad allergic reactions to contrast medium. A noncontrast CT scan of the abdomen was obtained concerning for possible ileus. No obvious diverticulitis was identified. Pain is controlled currently. Labs are within normal limits. Will admit for evaluation of chest pain, ileus. Patient admitted to his previous admitting doctor, Dr. Roy. Laboratory Tests Test 12/23/19 17:40 White Blood Count 7.6 K/UL (4.8-10.8) Red Blood Count 4.79 M/UL (4.70-6.10) Hemoglobin 14.7 G/DL (14.2-18.0) Hematocrit 43.6 % (42.0-52.0) Mean Corpuscular Volume 91 FL (80-99) Mean Corpuscular Hemoglobin 30.7 PG (27.0-31.0) Mean Corpuscular Hemoglobin Concent 33.7 G/DL (32.0-36.0) Red Cell Distribution Width 13.1 % (11.6-14.8) Platelet Count 138 K/UL (150-450) L Mean Platelet Volume 11.8 FL (6.5-10.1) H Neutrophils (%) (Auto) 51.2 % (45.0-75.0) Lymphocytes (%) (Auto) 34.5 % (20.0-45.0) Monocytes (%) (Auto) 11.7 % (1.0-10.0) H Eosinophils (%) (Auto) 1.4 % (0.0-3.0) Basophils (%) (Auto) 1.2 % (0.0-2.0) Prothrombin Time 11.0 SEC (9.30-11.50) Prothrombin Time INR 1.0 (0.9-1.1) Activated Partial Thromboplast Time 27 SEC (23-33) Sodium Level 137 MMOL/L (136-145) Potassium Level 3.0 MMOL/L (3.5-5.1) L Chloride Level 103 MMOL/L (98-107) Carbon Dioxide Level 26 MMOL/L (21-32) Blood Urea Nitrogen 6 mg/dL (7-18) L Creatinine 1.3 MG/DL (0.55-1.30) Estimated Glomerular Filtration Rate > 60 mL/min (>60) Glucose Level 166 MG/DL (74-106) H Calcium Level 8.9 MG/DL (8.5-10.1) Total Bilirubin 0.9 MG/DL (0.2-1.0) Aspartate Amino Transferase (AST) 87 U/L (15-37) H Alanine Aminotransferase (ALT) 100 U/L (12-78) H Alkaline Phosphatase 159 U/L (46-116) H Troponin I 0.004 ng/mL (0.000-0.056) Pro-B-Type Natriuretic Peptide 97 pg/mL (0-125) Total Protein 6.3 G/DL (6.4-8.2) L Albumin 3.3 G/DL (3.4-5.0) L Globulin 3.0 g/dL Albumin/Globulin Ratio 1.1 (1.0-2.7) Lipase 382 U/L (73-393) EKG Diagnostic Results Troponin ordered: Yes When was troponin ordered?: Dec 23, 2019 EKG Time: 17:23 Rate: normal Other Impression Atrial fibrillation Rhythm Strip Diag. Results Rhythm Strip Time: 17:26 EP Interpretation: yes Rate: 90s Rhythm: no PVC's Chest X-Ray Diagnostic Results Chest X-Ray Diagnostic Results : Chest X-Ray Ordered: Yes # of Views/Limited/Complete: 1 View Indication: Chest Pain Interpretation: other - No obvious consolidation. Cardiomegaly present. Prior aortic repair, prior sternotomy Impression: No acute disease Electronically Signed by: Electronically signed by Dr. Orlando Powell CT/MRI/US Diagnostic Results CT/MRI/US Diagnostic Results : Impression CT Abdomen and Pelvis Without Intravenous Contrast CLINICAL HISTORY: ABD PAIN TECHNIQUE: Axial computed tomography images of the abdomen and pelvis without intravenous contrast. CTDI is 18.40 mGy and DLP is 1117.70 mGy-cm. One or more of the following dose reduction techniques were used: automated exposure control, adjustment of the mA and/or kV according to patient size, use of iterative reconstruction technique. COMPARISON: 03/14/2014. FINDINGS: Limitations: Limited due to motion. Lung bases: Unremarkable. ABDOMEN: Liver: Unremarkable. Gallbladder and bile ducts: Unremarkable. No calcified stones. Pancreas: Unremarkable. Spleen: Unremarkable. Adrenals: Unremarkable. Kidneys and ureters: No hydronephrosis or ureteral calculus. Left renal cysts. Stomach and bowel: Moderate colonic stool/air which may be ileus/constipation. No mechanical bowel obstruction. No diverticulitis. PELVIS: Appendix: No findings to suggest acute appendicitis. Bladder: Unremarkable. Reproductive: Unremarkable as visualized. ABDOMEN and PELVIS: Intraperitoneal space: No free air. Bones/joints: Sternotomy. Soft tissues: Unremarkable. Vasculature: Unremarkable. Lymph nodes: Unremarkable. IMPRESSION: Moderate colonic stool/air which may be ileus/constipation. No mechanical bowel obstruction. No diverticulitis. Radiologist: Ramon Don M.D. Electronically Signed: 12/23/19 21:15 Study ready at 20:56 and initial results transmitted at 21:15 Last Vital Signs Date Time Temp Pulse Resp B/P (MAP) Pulse Ox O2 Delivery O2 Flow Rate FiO2 12/23/19 17:15 98.6 66 18 158/91 (113) 99 Room Air Disposition: ADMITTED INPATIENT Condition: Serious Orlando Powell MD Dec 23, 2019 17:40
[2019-12-23 18:14] LABS: ALANINE AMINOTRANSFERASE 100 U/L (12-78); ALBUMIN 3.3 G/DL (3.4-5.0); ALBUMIN/GLOBULIN RATIO 1.1 (1.0-2.7); ALKALINE PHOSPHATASE 159 U/L (46-116); ASPARTATE AMINO TRANSFERASE 87 U/L (15-37); BILIRUBIN,TOTAL 0.9 MG/DL (0.2-1.0); BLOOD UREA NITROGEN 6 mg/dL (7-18); CALCIUM 8.9 MG/DL (8.5-10.1); CARBON DIOXIDE 26 MMOL/L (21-32); CHLORIDE 103 MMOL/L (98-107); CREATININE 1.3 MG/DL (0.55-1.30); SODIUM 137 MMOL/L (136-145)
[2019-12-23] MEDS ORDERED: HYDROmorphone 1mg/ml Carpuject IVP ONE ×2 (18:15→21:30)
[2019-12-23 18:18] LABS: BASOPHILS % (AUTO) 1.2 % (0.0-2.0); EOSINOPHILS % (AUTO) 1.4 % (0.0-3.0); HEMATOCRIT 43.6 % (42.0-52.0); HEMOGLOBIN 14.7 G/DL (14.2-18.0); LYMPHOCYTES % (AUTO) 34.5 % (20.0-45.0); MEAN CORPUSCULAR VOLUME 91 FL (80-99); MONOCYTES % (AUTO) 11.7 % (1.0-10.0); NEUTROPHILS % (AUTO) 51.2 % (45.0-75.0); PLATELET COUNT 138 K/UL (150-450); RED BLOOD COUNT 4.79 M/UL (4.70-6.10); RED CELL DISTRIBUTION WIDTH 13.1 % (11.6-14.8); WHITE BLOOD COUNT 7.6 K/UL (4.8-10.8)
[2019-12-23] MEDS ORDERED: Omnipaque 350 100ml vial INJ PRN (19:00)
[2019-12-23 19:30] VITALS: BP 145/87
--- NOTE | 2019-12-23 20:36 | NUR ---
ED Nurse Note: Pt taken to CT via [facility] accompanied by a tech.
--- NOTE | 2019-12-23 20:45 | NUR ---
ED Nurse Note: Pt returned from CT, not in any distress.
[2019-12-23 21:30] VITALS: BP 136/84
[2019-12-23 22:41] VITALS: BP 141/77
--- NOTE | 2019-12-23 22:44 | NUR ---
ED Nurse Note: report given to KRYSTIAN Perez in tele.
--- NOTE | 2019-12-23 22:45 | NUR ---
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
--- NOTE | 2019-12-23 23:00 | NUR ---
TRANSFER TO FLOOR: Patient transferred to Tele. Report given to Ana BOLAND. Pt AAOx4, verbally responsive. No SOB, on room air. On NS 1L patent and infusing well. IV line on left forearm 20g patent and intact. Med recon done. Swabs sent. No skin issues. All belongings sent with the patient.
--- NOTE | 2019-12-23 23:30 | NUR ---
NURSE NOTES: Patient received from ED Lottie RN. Pt AAOx4, verbally responsive. No SOB, on room air, Pt complaining of pain 100/10. Received dilaudid 2 hours ago, calling for admission orders. IV line on left forearm 20g patent and intact. All belongings checked Bed locked in lowest position, side rails x2, call light within reach
[2019-12-24] MEDS ORDERED: HYDROmorphone 1mg/ml Carpuject IVP SCH (00:15)
[2019-12-24 01:00] VITALS: BP 155/87
--- NOTE | 2019-12-24 04:06 | NUR ---
NURSE NOTES: Finally reached Dr Roy to order pain medication, pt complaining of abdominal pain of 100/10, excruciating and can see that pain can "overtake your mind." looking for a way out because the pain is so severe, ordered dialudid 1mg q4h prn pain. Kaveh never called back, called and left voicemails repeatedly, finally received order from Dr Roy addressing pain, able to calm pt,
[2019-12-24] MEDS: HYDROmorphone 1mg/ml Carpuject IVP PRN ×8 (04:18→23:03)
[2019-12-24 04:46] VITALS: BP 141/81
--- NOTE | 2019-12-24 07:00 | NUR ---
NURSE NOTES: Dr Linn never returned the call for pain med orders, given orders overnight from Dr Roy of dilaudid 1mg q 4h. last given at 0418.
--- NOTE | 2019-12-24 07:01 | NUR ---
NURSE NOTES: Pt stated pain is climbing although pain med was last given at 417, cannot receive until 817
[2019-12-24 07:13] LABS: EOSINOPHILS % (AUTO) 1.6 % (0.0-3.0); HEMOGLOBIN 14.1 G/DL (14.2-18.0); LYMPHOCYTES % (AUTO) 35.6 % (20.0-45.0); MEAN CORPUSCULAR VOLUME 86 FL (80-99); PLATELET COUNT 126 K/UL (150-450); RED BLOOD COUNT 4.63 M/UL (4.70-6.10); RED CELL DISTRIBUTION WIDTH 11.9 % (11.6-14.8); WHITE BLOOD COUNT 6.4 K/UL (4.8-10.8)
[2019-12-24 07:43] LABS: ALANINE AMINOTRANSFERASE 102 U/L (12-78); ALBUMIN 3.1 G/DL (3.4-5.0); ALBUMIN/GLOBULIN RATIO 0.9 (1.0-2.7); ALKALINE PHOSPHATASE 106 U/L (46-116); ANION GAP 8 mmol/L (5-15); ASPARTATE AMINO TRANSFERASE 80 U/L (15-37); BILIRUBIN,TOTAL 1.2 MG/DL (0.2-1.0); BLOOD UREA NITROGEN 7 mg/dL (7-18); CALCIUM 8.6 MG/DL (8.5-10.1); CARBON DIOXIDE 27 MMOL/L (21-32); CHLORIDE 106 MMOL/L (98-107); POTASSIUM 3.3 MMOL/L (3.5-5.1); SODIUM 141 MMOL/L (136-145)
[2019-12-24 07:44] LABS: BILIRUBIN,DIRECT 0.2 MG/DL (0.0-0.3)
[2019-12-24 08:00] VITALS: BP 134/66
--- NOTE | 2019-12-24 08:00 | NUR ---
NURSE NOTES: Received report from Sandra Sultana RN. Patient in supine position, on room air, awake and alert x 4, bed in lowest position, side rails up x 3, wheels locked, call light within reach, c/o of abdominal pain.
--- NOTE | 2019-12-24 08:05 | NUR ---
NURSE HAND-OFF REPORT: Important Events on Shift: Patient Status: extreme pain, unmanaged by current regimen, Diet: NPO except meds, ice chips Pending Orders: Pending Results/Labs: am labs Pending MD notification: unable to reach [facility] for further pain orders as current is ineffective and subtherapeutic per pt Latest Vital Signs: Temperature 97.9 , Pulse 81 , B/P 141 /81 , Respiratory Rate 20 , O2 SAT 97 , Room Air, O2 Flow Rate . Vital Sign Comment: EKG Rhythm: Sinus Rhythm w PACs and PVCs Rhythm change?: N MD Notified?: - MD Response: Latest [place] Fall Score: 75 Fall Risk: High Risk Safety Measures: Call light Within Reach, Bed Alarm Zone 1, Side Rails Side Rails x2, Bed position Low and Locked. Fall Precautions: Yellow Socks Yellow Gown Door Sign Patient Fall Education Report given to Scooter BOLAND
--- NOTE | 2019-12-24 08:11 | NUR ---
NURSE NOTES: Left message on voicemail of Dr. Chris Murphy reporting patient c/o pain in LLQ abdomen, needs additional pain medication per patient. Also, left message on voicemail of Dr. Brannon Linn reporting patient request for additional pain medication.
[2019-12-24 11:57] LABS: CHOLESTEROL 129 MG/DL (< 200); HDL CHOLESTEROL 58 MG/DL (40-60); TRIGLYCERIDES 54 MG/DL (30-150)
[2019-12-24 12:00] VITALS: BP 133/86
[2019-12-24] MEDS: LORazepam 1mg tab ORAL PRN ×2 (12:28→18:45)
[2019-12-24 13:07] LABS: APPEARANCE,URINE CLEAR; BILIRUBIN, URINE NEGATIVE (NEGATIVE); GLUCOSE, URINE (UA) NEGATIVE (NEGATIVE); KETONES,URINE NEGATIVE (NEGATIVE); LEUKOCYTE ESTERASE ,URINE 1+ (NEGATIVE); NITRITE,URINE NEGATIVE (NEGATIVE); PH,URINE 7 (4.5-8.0); PROTEIN,URINE 2+ (NEGATIVE); UROBILINOGEN,URINE 4 MG/DL (0.0-1.0)
[2019-12-24 13:08] LABS: COLOR,URINE YELLOW
--- NOTE | 2019-12-24 13:59 | General Progress Note ---
Subjective Allergies: Coded Allergies: MORPHINE (Verified Allergy, Severe, 11/07/10) NITROGLYCERIN (Verified Allergy, Severe, 11/07/10) KETOROLAC (Unverified Allergy, Intermediate, 03/14/14) FISH CONTAINING PRODUCTS (Verified Allergy, Mild, 07/20/14) per patient, "it knocks me out" ACETAMINOPHEN (Unverified Allergy, Unknown, 07/19/14) CODEINE (Unverified Allergy, Unknown, 11/03/13) UNKNOWN DIPHENHYDRAMINE (Unverified Allergy, Unknown, 09/30/14) IBUPROFEN (Unverified Allergy, Unknown, 11/03/13) UNKNOWN PROCHLORPERAZINE (Unverified Allergy, Unknown, 07/19/14) GABAPENTIN (Verified Adverse Reaction, Intermediate, 07/20/14) Per patient, it makes him sweat, throws up, and "blacks out" Uncoded Allergies: IV contrast (Allergy, Unknown, 11/30/19) Objective Last 24 Hour Vital Signs Date Time Temp Pulse Resp B/P (MAP) Pulse Ox O2 Delivery O2 Flow Rate FiO2 12/24/19 12:59 97.5 12/24/19 12:58 88 16 129/82 97 12/24/19 12:28 91 20 133/86 96 12/24/19 12:00 85 12/24/19 12:00 97.5 91 20 133/86 (102) 96 12/24/19 09:00 Room Air 12/24/19 09:00 80 12/24/19 08:57 97.9 12/24/19 08:00 97.9 79 20 134/66 (88) 96 12/24/19 04:48 97.9 12/24/19 04:46 97.9 81 20 141/81 (101) 97 12/24/19 04:00 78 12/24/19 03:34 Room Air 12/24/19 01:00 98.1 79 20 155/87 (109) 97 12/24/19 00:48 98.6 12/24/19 00:00 78 12/23/19 23:22 84 12/23/19 23:00 98.6 86 19 141/77 99 Room Air 12/23/19 22:41 98.6 86 19 141/77 99 Room Air 12/23/19 21:30 98.6 74 16 136/84 99 Room Air 12/23/19 19:30 98.6 71 19 145/87 100 Room Air 12/23/19 18:42 98.6 12/23/19 17:21 66 18 Room Air 12/23/19 17:21 98.6 66 18 158/91 99 Room Air 12/23/19 17:15 98.6 66 18 158/91 (113) 99 Room Air Intake and Output 12/23/19 12/24/19 19:00 07:00 Intake Total 30 ml Output Total 300 ml Balance -270 ml Intake Oral 30 ml Output Urine Total 300 ml # Voids 3 Laboratory Tests 12/23/19 17:40: White Blood Count 7.6, Red Blood Count 4.79, Hemoglobin 14.7, Hematocrit 43.6, Mean Corpuscular Volume 91, Mean Corpuscular Hemoglobin 30.7, Mean Corpuscular Hemoglobin Concent 33.7, Red Cell Distribution Width 13.1, Platelet Count 138L, Mean Platelet Volume 11.8H, Neutrophils (%) (Auto) 51.2, Lymphocytes (%) (Auto) 34.5, Monocytes (%) (Auto) 11.7H, Eosinophils (%) (Auto) 1.4, Basophils (%) (Auto) 1.2, Prothrombin Time 11.0, Prothromb Time International Ratio 1.0, Activated Partial Thromboplast Time 27, Sodium Level 137, Potassium Level 3.0L, Chloride Level 103, Carbon Dioxide Level 26, Blood Urea Nitrogen 6L, Creatinine 1.3, Estimat Glomerular Filtration Rate > 60, Glucose Level 166H, Calcium Level 8.9, Total Bilirubin 0.9, Aspartate Amino Transf (AST/SGOT) 87H, Alanine Aminotransferase (ALT/SGPT) 100H, Alkaline Phosphatase 159H, Troponin I 0.004, Pro-B-Type Natriuretic Peptide 97, Total Protein 6.3L, Albumin 3.3L, Globulin 3.0, Albumin/Globulin Ratio 1.1, Lipase 382 12/24/19 06:08: White Blood Count 6.4, Red Blood Count 4.63L, Hemoglobin 14.1L, Hematocrit 40.0L , Mean Corpuscular Volume 86, Mean Corpuscular Hemoglobin 30.4, Mean Corpuscular Hemoglobin Concent 35.1, Red Cell Distribution Width 11.9, Platelet Count 126L, Mean Platelet Volume 9.0, Neutrophils (%) (Auto) 51.0, Lymphocytes (%) (Auto) 35.6, Monocytes (%) (Auto) 11.0H, Eosinophils (%) (Auto) 1.6, Basophils (%) (Auto) 1.0, Sodium Level 141, Potassium Level 3.3L, Chloride Level 106, Carbon Dioxide Level 27, Blood Urea Nitrogen 7, Creatinine 1.0, Estimat Glomerular Filtration Rate > 60, Glucose Level 111H, Calcium Level 8.6, Total Bilirubin 1.2H, Aspartate Amino Transf (AST/SGOT) 80H, Alanine Aminotransferase (ALT/SGPT) 102H, Alkaline Phosphatase 106, Troponin I 0.000, Total Protein 6.6, Albumin 3.1L, Globulin 3.5, Albumin/Globulin Ratio 0.9L, Anion Gap 8, Direct Bilirubin 0.2, Triglycerides Level 54, Cholesterol Level 129, LDL Cholesterol 62, HDL Cholesterol 58, Cholesterol/HDL Ratio 2.2L, Thyroid Stimulating Hormone (TSH) 1.374 12/24/19 12:20: Urine Color Yellow, Urine Appearance Clear, Urine pH 7, Urine Specific [place] 1.010, Urine Protein 2+H, Urine Glucose (UA) Negative, Urine Ketones Negative, Urine Blood Negative, Urine Nitrite Negative, Urine Bilirubin Negative, Urine Urobilinogen 4H, Urine Leukocyte Esterase 1+H, Urine RBC 0, Urine WBC 2-4, Urine Squamous Epithelial Cells Few, Urine Bacteria Few Height (Feet): 6 Height (Inches): 0.00 Weight (Pounds): 250 Assessment/Plan Assessment/Plan: Assessment - suprapubic abd pain, ? etiology - ? urological - ? fecal loading, colon spasm - ? bowel ischemia (but CT neg) - ? rectal blood (patient did not see) - Abnormal LFT, not new - possible Fatty liver - CAD - valvular heart disease - h/o CVA with (L) weakness - CP Recommendations - check lactate - check OB - laxative - serial exam - pain control - get prior colonoscopy report - consider urology eval Thank you Chris Aponte MD Dec 24, 2019 13:59
--- NOTE | 2019-12-24 14:00 | Consultation ---
Consult Note Consult Note Asked to evaluate at the request of Dr. Marshall for fluid and electrolyte management. HPI: This a 74-year-old male presenting for evaluation of chest and abdominal pain. Symptoms began last night. He states he has a tightness and pressure over the left chest that does not radiate associated with mild shortness of breath. Denies fever, chills or cough. He also reports left lower quadrant abdominal pain and bright red bleeding per rectum last night. States he has had this pain in the past. Also notes a history of repaired thoracic aneurysm several years ago as well as aortic valve repair. He does not know whether or not he had an abdominal aortic aneurysm whether or not that was repaired. Chest pain appears to be improving. He states his abdominal pain is getting worse. No further rectal bleeding noted. Patient is taking Eliquis PMH: CAD, thoracic aneurysm, aortic valve repair, atrial fibrillation PSH: Mitral valve repair, thoracic aneurysm repair Allergies: Codeine, morphine, fish products, gabapentin, Tylenol Social Hx: Reviewed Allergies: Coded Allergies: MORPHINE (Verified Allergy, Severe, 11/07/10) NITROGLYCERIN (Verified Allergy, Severe, 11/07/10) KETOROLAC (Unverified Allergy, Intermediate, 03/14/14) FISH CONTAINING PRODUCTS (Verified Allergy, Mild, 07/20/14) per patient, "it knocks me out" ACETAMINOPHEN (Unverified Allergy, Unknown, 07/19/14) CODEINE (Unverified Allergy, Unknown, 11/03/13) UNKNOWN DIPHENHYDRAMINE (Unverified Allergy, Unknown, 09/30/14) IBUPROFEN (Unverified Allergy, Unknown, 11/03/13) UNKNOWN PROCHLORPERAZINE (Unverified Allergy, Unknown, 07/19/14) GABAPENTIN (Verified Adverse Reaction, Intermediate, 07/20/14) Per patient, it makes him sweat, throws up, and "blacks out" Uncoded Allergies: IV contrast (Allergy, Unknown, 11/30/19) GENERAL: An elderly man, seen in his room, in no distress, looking at his cellphone. He does not appear to be in pain upon my arrival. HEENT: Normocephalic and atraumatic. Sclerae anicteric. Oropharynx clear. NECK: Supple. CHEST: Clear to auscultation. CARDIOVASCULAR: Revealed a regular rate. ABDOMEN: Mildly obese and soft. There is some tenderness to palpation diffusely, perhaps more so in the lower quadrants without guarding, rebound, or masses. EXTREMITIES: Revealed no edema. LABORATORY DATA: White count 6.4, hemoglobin of 14.1, hematocrit of 40, and platelet count 126. Sodium 141, potassium 3.3, BUN 7, creatinine 1, and glucose of 111. Troponin is negative x2. . Assessment/Plan 74-year-old male presents with chest pain and suprapubic pain Hypokalemia Cystitis, possible UTI Possible colonic spasm Fatty liver Coronary artery disease, valvular heart disease History of CVA with left weakness Sugg: Potassium supplement Monitor renal parameters and electrolytes Continue per consultants Will start on Flomax Will obtain urine for culture and sensitivity Jose Gracia MD Dec 24, 2019 14:00
[2019-12-24] MEDS ORDERED: Sorbitol Solution UD 30ml ORAL ONE (15:00)
[2019-12-24 16:00] VITALS: BP 138/93
[2019-12-24] MEDS: Tamsulosin 0.4mg cap ORAL SCH ×2 (16:03→17:36)
--- NOTE | 2019-12-24 17:36 | NUR ---
NURSE NOTES: 1800 Tamsulosin held due to too close to previous dose.
--- NOTE | 2019-12-24 17:46 | Cardiac Electrophysiology PN ---
Subjective Subjective [id number] Objective Last 24 Hour Vital Signs Date Time Temp Pulse Resp B/P (MAP) Pulse Ox O2 Delivery O2 Flow Rate FiO2 12/24/19 17:12 97.5 12/24/19 16:00 97.5 89 20 138/93 (108) 94 12/24/19 14:57 97.5 12/24/19 12:59 97.5 12/24/19 12:58 88 16 129/82 97 12/24/19 12:28 91 20 133/86 96 12/24/19 12:00 85 12/24/19 12:00 97.5 91 20 133/86 (102) 96 12/24/19 09:00 Room Air 12/24/19 09:00 80 12/24/19 08:57 97.9 12/24/19 08:00 97.9 79 20 134/66 (88) 96 12/24/19 04:48 97.9 12/24/19 04:46 97.9 81 20 141/81 (101) 97 12/24/19 04:00 78 12/24/19 03:34 Room Air 12/24/19 01:00 98.1 79 20 155/87 (109) 97 12/24/19 00:48 98.6 12/24/19 00:00 78 12/23/19 23:22 84 12/23/19 23:00 98.6 86 19 141/77 99 Room Air 12/23/19 22:41 98.6 86 19 141/77 99 Room Air 12/23/19 21:30 98.6 74 16 136/84 99 Room Air 12/23/19 19:30 98.6 71 19 145/87 100 Room Air 12/23/19 18:42 98.6 Intake and Output 12/23/19 12/24/19 19:00 07:00 Intake Total 30 ml Output Total 300 ml Balance -270 ml Intake Oral 30 ml Output Urine Total 300 ml # Voids 3 Laboratory Tests Test 12/24/19 06:08 12/24/19 12:20 12/24/19 14:45 White Blood Count 6.4 K/UL (4.8-10.8) Red Blood Count 4.63 M/UL (4.70-6.10) L Hemoglobin 14.1 G/DL (14.2-18.0) L Hematocrit 40.0 % (42.0-52.0) L Mean Corpuscular Volume 86 FL (80-99) Mean Corpuscular Hemoglobin 30.4 PG (27.0-31.0) Mean Corpuscular Hemoglobin Concent 35.1 G/DL (32.0-36.0) Red Cell Distribution Width 11.9 % (11.6-14.8) Platelet Count 126 K/UL (150-450) L Mean Platelet Volume 9.0 FL (6.5-10.1) Neutrophils (%) (Auto) 51.0 % (45.0-75.0) Lymphocytes (%) (Auto) 35.6 % (20.0-45.0) Monocytes (%) (Auto) 11.0 % (1.0-10.0) H Eosinophils (%) (Auto) 1.6 % (0.0-3.0) Basophils (%) (Auto) 1.0 % (0.0-2.0) Sodium Level 141 MMOL/L (136-145) Potassium Level 3.3 MMOL/L (3.5-5.1) L Chloride Level 106 MMOL/L (98-107) Carbon Dioxide Level 27 MMOL/L (21-32) Anion Gap 8 mmol/L (5-15) Blood Urea Nitrogen 7 mg/dL (7-18) Creatinine 1.0 MG/DL (0.55-1.30) Estimat Glomerular Filtration Rate > 60 mL/min (>60) Glucose Level 111 MG/DL (74-106) H Calcium Level 8.6 MG/DL (8.5-10.1) Total Bilirubin 1.2 MG/DL (0.2-1.0) H Direct Bilirubin 0.2 MG/DL (0.0-0.3) Aspartate Amino Transf (AST/SGOT) 80 U/L (15-37) H Alanine Aminotransferase (ALT/SGPT) 102 U/L (12-78) H Alkaline Phosphatase 106 U/L (46-116) Troponin I 0.000 ng/mL (0.000-0.056) Total Protein 6.6 G/DL (6.4-8.2) Albumin 3.1 G/DL (3.4-5.0) L Globulin 3.5 g/dL Albumin/Globulin Ratio 0.9 (1.0-2.7) L Triglycerides Level 54 MG/DL (30-150) Cholesterol Level 129 MG/DL (< 200) LDL Cholesterol 62 mg/dL (<100) HDL Cholesterol 58 MG/DL (40-60) Cholesterol/HDL Ratio 2.2 (3.3-4.4) L Thyroid Stimulating Hormone (TSH) 1.374 uiU/mL (0.358-3.740) Urine Color Yellow Urine Appearance Clear Urine pH 7 (4.5-8.0) Urine Specific [place] 1.010 (1.005-1.035) Urine Protein 2+ (NEGATIVE) H Urine Glucose (UA) Negative (NEGATIVE) Urine Ketones Negative (NEGATIVE) Urine Blood Negative (NEGATIVE) Urine Nitrite Negative (NEGATIVE) Urine Bilirubin Negative (NEGATIVE) Urine Urobilinogen 4 MG/DL (0.0-1.0) H Urine Leukocyte Esterase 1+ (NEGATIVE) H Urine RBC 0 /HPF (0 - 0) Urine WBC 2-4 /HPF (0 - 0) Urine Squamous Epithelial Cells Few /LPF (NONE/OCC) Urine Bacteria Few /HPF (NONE) Lactic Acid Level 1.00 mmol/L (0.4-2.0) Juan Carlos Orosco MD Dec 24, 2019 17:46
[2019-12-24] MEDS ORDERED: Lexiscan 0.4mg/5ml syringe IV PRN (18:00)
--- NOTE | 2019-12-24 18:43 | NUR ---
NURSE NOTES: Patient had removed dressing over pacemaker site. Dr. Juan Carlos Orosco replaced dressing. Patient was instructed not to touche the site.
--- NOTE | 2019-12-24 19:37 | NUR ---
NURSE HAND-OFF REPORT: Important Events on Shift:Patient pain level remains elevated, Lexiscan Stress Test ordered for tomorrow 12/24/19. Patient Status: Stable Diet: NPO x ice chips and medications, no caffeine, no chocolate, no tea, no coffee. Pending Orders: Stress Test, EKG Pending Results/Labs:AM Labs Pending MD notification:N/A Latest Vital Signs: Temperature 97.5 , Pulse 101 , B/P 133 /89 , Respiratory Rate 19 , O2 SAT 95 , Room Air, O2 Flow Rate . Vital Sign Comment: Stable EKG Rhythm: 1st Degree HB Rhythm change?: N MD Notified?: - MD Response: Latest Madison Fall Score: 75 Fall Risk: High Risk Safety Measures: Call light Within Reach, Bed Alarm Zone 2, Side Rails Side Rails x3, Bed position Low and Locked. Fall Precautions: Yellow Socks Yellow Gown Report given to Sandra Sultana RN.
--- NOTE | 2019-12-24 19:40 | NUR ---
NURSE NOTES: Received report from Scooter Maxwell RN. Patient in semi fowlers position, on room air, awake and alert x 4, bed locked, in lowest position, side rails up x 2, bed alarm on, asked pt to call for assistance as we do not want him to fall. Pt verbalized understanding, call light within reach, c/o of abdominal pain but cannot receive pain medicine earlier than 2044.
[2019-12-24 20:00] VITALS: BP 159/69
--- NOTE | 2019-12-24 20:45 | Consultation ---
DATE OF CONSULTATION: 12/24/2019 CARDIOLOGY CONSULTATION CONSULTING PHYSICIAN: Juan Carlos Orosco MD. REFERRING PHYSICIAN: Rafaela Roy MD. REASON FOR CONSULTATION: Chest pain. HISTORY OF PRESENT ILLNESS: Patient is a 74-year-old gentleman with history of hypertension, coronary artery disease, history of aortic valve and mitral valve repair, thoracic aneurysm, and atrial fibrillation presented with chest pain and abdominal pain that started last night. Patient also had shortness of breath. Patient also had left lower quadrant abdominal pain and bright red bleeding per rectum last night. Patient has history of thoracic aneurysm repair as well as aortic valve replacement many years ago. Patient was taking Eliquis for atrial fibrillation and was admitted and a Cardiology consultation was obtained for further evaluation and management. REVIEW OF SYSTEMS: Negative other than what was mentioned in the history of present illness. PAST MEDICAL HISTORY: As mentioned above. FAMILY HISTORY: Noncontributory. SOCIAL HISTORY: Does not smoke or drink alcohol. PHYSICAL EXAMINATION: VITAL SIGNS: Blood pressure 138/93, pulse 89, respirations 18, temperature 97.5. HEAD AND NECK: Showed no JVD. LUNGS: Clear. CARDIOVASCULAR: Shows irregular S1 and S2 with no gallop. ABDOMEN: Soft. EXTREMITIES: 1+ pitting edema. LABORATORY DATA: White count 6.4, hemoglobin of 14.1, hematocrit of 40, and platelet count 126. Sodium 141, potassium 3.3, BUN 7, creatinine 1, and glucose of 111. Troponin is negative x2. ASSESSMENT AND PLAN: 1. Atypical chest pain. Patient has history of coronary artery disease, but it is not clear regarding the nature of his OK versus stent. At this time, patient is without any chest pains and was already ruled out for myocardial infarction. We will get an echocardiogram to evaluate for ejection fraction and wall motion abnormality. 2. Paroxysmal atrial fibrillation. Patient was on Eliquis that was discontinued in view of abdominal pain and possible rectal bleeding even though patient did not see. 3. History of aortic valve repair versus replacement. 4. Status post thoracic aortic aneurysm repair versus replacement. 5. History of CVA with left-sided weakness. 6. Abnormal liver function tests with high ALT and AST. 7. Hypokalemia. Potassium will be replaced. Thank you very much for allowing me to participate in the care of this patient. Please do not hesitate to contact me for any questions regarding my evaluation. Juan Carlos Orosco M.D. DR: JENNY JOB#: [id number] CC:
--- NOTE | 2019-12-24 22:00 | NUR ---
NURSE NOTES: Spoke with VIVIEN Eduardo, and he will see pt tomorrow. Said he needs to assess pt to see if he will change the current pain regimen, no new orders. Told him of pt's statement that the dilaudid 1 mg is only taking pain from a 10/10 to a 7/10 and is not effective for pain control.
--- NOTE | 2019-12-24 23:45 | History and Physical Report ---
DATE OF ADMISSION: 12/23/2019 HISTORY OF PRESENT ILLNESS: Patient basically is here for chest pain and hypokalemia. Patient also states that he had chest pain and abdominal pain look like it was ileus on the CT scan. Troponin was negative. Patient also has extensive cardiac history with history of chronic thoracic aneurysm. He refused CT. He is also allergic to contrast. Patient admitted for chest pain, rule out acute coronary syndrome. Patient was recently hospitalized at the hospital. Patient also came in for the tightness and chest pain that was associated with shortness of breath. Denies fever or chills. Denies nausea, vomiting, or diarrhea. Patient also denies headache. PAST MEDICAL HISTORY: Thoracic aneurysm, history of CAD, history of atrial fibrillation, history of hypertension, history of chronic back pain, history of hernia. Patient also has a history of degenerative joint disease. Patient also has history of CHF, history of paroxysmal atrial fibrillation, history of lower extremity weakness, history of CVA, history of hypertension. PAST SURGICAL HISTORY: Heart valve replacement, left hip surgery, left knee surgery, laminectomy, hernia surgery. ALLERGIES: Acetaminophen, codeine, Benadryl, fish, gabapentin, IV contrast, morphine, nitroglycerin. MEDICATIONS: Eliquis, amlodipine, hydrochlorothiazide, and labetalol. FAMILY HISTORY: Noncontributory. SOCIAL HISTORY: Denies history of smoking. Denies history of alcohol or illicit drugs. Lives at home. REVIEW OF SYSTEMS: HEENT: Denies headaches. RESPIRATORY: Denies shortness of breath. Denies cough. CARDIOVASCULAR: Reports chest pain. No radiation for two days. Denies orthopnea. GASTROINTESTINAL: abdominal pain. Reports suprapubic tenderness for two days. Denies constipation. EXTREMITIES: Denies pain in lower extremities. Does have chronic back pain. CENTRAL NERVOUS SYSTEM: Denies change in speech pattern. PHYSICAL EXAMINATION: VITAL SIGNS: Temperature is 97.5, pulse is 89, blood pressure 138/93. HEENT: PERRLA. NECK: Supple. No evidence of lymphadenopathy. CHEST: Clear to auscultation. CARDIOVASCULAR: Regular rate and rhythm. No extra sounds. Does have murmur, which is chronic. GASTROINTESTINAL: Soft, nontender. Positive bowel sounds. No organomegaly. EXTREMITIES: 1+ edema. Reflexes equal on both sides. Has generalized weakness. Dorsalis pedis pulses are present. LABORATORY DATA: WBC of 7.6, hemoglobin of 14.7, platelets 138. Sodium 141, potassium 3.3, BUN of 7, creatinine of 1. Troponin negative. No significant EKG changes. ASSESSMENT AND PLAN: Chest pain, abdominal pain, hypokalemia, chronic pain syndrome, and also depression. I have asked Dr. Smith, Dr. Gracia, Dr. Linn, Dr. Orosco, and Dr. Murphy to see the patient for the management of abdominal pain and chest pain as well as for the management for hypokalemia and depression and also pain syndrome and also management of hypokalemia. Stress test if needed will be per the senior actuarial analyst. Rafaela Roy M.D. DR: JAVED JOB#: [id number] CC:
[2019-12-25] VITALS: BP 154/88
[2019-12-25] MEDS: HYDROmorphone 1mg/ml Carpuject IVP PRN ×12 (00:47→23:51)
[2019-12-25] MEDS: LORazepam 1mg tab ORAL PRN (00:47)
--- NOTE | 2019-12-25 01:15 | Consultation ---
DATE OF CONSULTATION: 12/24/2019 GASTROENTEROLOGY CONSULTATION REPORT CONSULTING PHYSICIAN: Chris Murphy MD CHIEF COMPLAINT: I was asked to see this patient by Dr. Rafaela Roy for evaluation of abdominal pain. HISTORY OF PRESENT ILLNESS: The patient is a 74-year-old man who was admitted to the hospital due to chest and abdominal pain. The abdominal pain started about 1 day prior to admission. The patient points to his pubic area as the root of the pain and he states it radiates down to his legs and when he has bowel movement. He states he was told he had some blood in his stools, although he does not recall seeing himself. He states he had a colonoscopy about a few months ago at [facility]. This is not available to me at this time. He has had no nausea, vomiting, and no fevers or chills. A CT scan of the abdomen and pelvis was done overnight in the emergency room, which showed some stool and air in the bowels. There was no diverticulitis. No acute abdominal pathology identified. There was no thickened bowel either. The patient does have vascular disease including atrial fibrillation, aortic valve repair, thoracic aneurysm, and history of coronary artery disease. The patient was on Eliquis as an outpatient. PAST MEDICAL HISTORY: History of coronary artery disease, thoracic aneurysm, aortic valve repair, atrial fibrillation, history of fatty liver, evaluation in November was negative for hepatitis A, B, and C serologies. FAMILY HISTORY: Noncontributory. SOCIAL HISTORY: Patient lives at home. He does not smoke or drink alcohol. REVIEW OF SYSTEMS: Otherwise negative. PHYSICAL EXAMINATION: GENERAL: An elderly man, seen in his room, in no distress, looking at his cellphone. He does not appear to be in pain upon my arrival. HEENT: Normocephalic and atraumatic. Sclerae anicteric. Oropharynx clear. NECK: Supple. CHEST: Clear to auscultation. CARDIOVASCULAR: Revealed a regular rate. ABDOMEN: Mildly obese and soft. There is some tenderness to palpation diffusely, perhaps more so in the lower quadrants without guarding, rebound, or masses. EXTREMITIES: Revealed no edema. LABORATORY DATA AND CT IMAGING: Noted. ASSESSMENT: This patient complains of abdominal pain, which started a day prior to admission. His workup so far is somewhat unrevealing. He points to the suprapubic area as the source and perhaps a urological process should be considered. From a gastrointestinal standpoint, there appears to be some stool and gas in his bowels, but there is no evidence of diverticulitis or ischemic colitis or other acute abdominal pathology has been reported. He is at a risk for vascular compromise of his bowels and exam should be followed closely. I will order lactic acid level for this purpose as well. pain medications can be advanced to provide him relief while workup was underway. I would also check a stool occult blood since he did not see blood himself in his stool. In addition, I will try to obtain his recent colonoscopy results from [facility]. I will also give him laxatives to clear the bowels to see if that will help in his symptoms. RECOMMENDATIONS: 1. Follow up exam closely. 2. Consider Urology or General Surgery consultation. 3. Check lactic acid level. 4. Pain control. 5. Laxative trial. Thank you for asking me to participate in the care of this patient. Chris Murphy M.D. DR: TAVIA JOB#: [id number] CC: JOSEPH
[2019-12-25 04:01] VITALS: BP 138/96
--- NOTE | 2019-12-25 06:19 | Diagnostic Imaging Report ---
EXAM: CT Abdomen and Pelvis Without Intravenous Contrast CLINICAL HISTORY: ABD PAIN TECHNIQUE: Axial computed tomography images of the abdomen and pelvis without intravenous contrast. CTDI is 18.40 mGy and DLP is 1117.70 mGy-cm. One or more of the following dose reduction techniques were used: automated exposure control, adjustment of the mA and/or kV according to patient size, use of iterative reconstruction technique. COMPARISON: 03/14/2014. FINDINGS: Limitations: Limited due to motion. Lung bases: Unremarkable. ABDOMEN: Liver: Unremarkable. Gallbladder and bile ducts: Unremarkable. No calcified stones. Pancreas: Unremarkable. Spleen: Unremarkable. Adrenals: Unremarkable. Kidneys and ureters: No hydronephrosis or ureteral calculus. Left renal cysts. Stomach and bowel: Moderate colonic stool/air which may be ileus/constipation. No mechanical bowel obstruction. No diverticulitis. PELVIS: Appendix: No findings to suggest acute appendicitis. Bladder: Unremarkable. Reproductive: Unremarkable as visualized. ABDOMEN and PELVIS: Intraperitoneal space: No free air. Bones/joints: Sternotomy. Soft tissues: Unremarkable. Vasculature: Unremarkable. Lymph nodes: Unremarkable. IMPRESSION: Moderate colonic stool/air which may be ileus/constipation. No mechanical bowel obstruction. No diverticulitis.
--- NOTE | 2019-12-25 06:19 | Diagnostic Imaging Report ---
EXAM: XR Chest, 1 View CLINICAL HISTORY: CP TECHNIQUE: Frontal view of the chest. COMPARISON: 12/10/2019. FINDINGS: Lungs: No focal consolidation. Pleural space: Unremarkable. No pneumothorax. Heart: Stable. Mediastinum: Stable. Bones/joints: Sternotomy. Vasculature: Aortic postop changes. IMPRESSION: No focal consolidation.
[2019-12-25 07:07] LABS: BASOPHILS % (AUTO) 1.1 % (0.0-2.0); EOSINOPHILS % (AUTO) 2.4 % (0.0-3.0); HEMATOCRIT 41.9 % (42.0-52.0); HEMOGLOBIN 14.4 G/DL (14.2-18.0); LYMPHOCYTES % (AUTO) 35.7 % (20.0-45.0); MEAN CORPUSCULAR VOLUME 88 FL (80-99); MONOCYTES % (AUTO) 11.8 % (1.0-10.0); NEUTROPHILS % (AUTO) 49.1 % (45.0-75.0); PLATELET COUNT 154 K/UL (150-450); RED BLOOD COUNT 4.77 M/UL (4.70-6.10); RED CELL DISTRIBUTION WIDTH 12.1 % (11.6-14.8); WHITE BLOOD COUNT 6.8 K/UL (4.8-10.8)
--- NOTE | 2019-12-25 07:30 | NUR ---
NURSE NOTES: Received pt from KRYSTIAN Flores, pt is awake and confused, pt is in RA, no SOB or acute respiratory distress noted. pt has intact iv access LFA 20G is running well. pt is on continues heart monitoring. pt is NPO due to stress test today. All needs attended, bed is locked and is in the lowest position, call light within easy reach. will continue to monitor. Addendum: 12/25/19 at 0945 by Yg Campos RN ERROR Pt is awake and alert.
[2019-12-25 07:32] LABS: ALANINE AMINOTRANSFERASE 112 U/L (12-78); ALBUMIN 3.5 G/DL (3.4-5.0); ALKALINE PHOSPHATASE 100 U/L (46-116); ANION GAP 10 mmol/L (5-15); ASPARTATE AMINO TRANSFERASE 81 U/L (15-37); BILIRUBIN,TOTAL 1.6 MG/DL (0.2-1.0); BLOOD UREA NITROGEN 9 mg/dL (7-18); CALCIUM 8.7 MG/DL (8.5-10.1); CARBON DIOXIDE 25 MMOL/L (21-32); CHLORIDE 104 MMOL/L (98-107); CREATININE 1.1 MG/DL (0.55-1.30); GAMMA GLUTAMYL TRANSPEPTIDASE 32 U/L (5-85); PHOSPHORUS 2.5 MG/DL (2.5-4.9); POTASSIUM 3.4 MMOL/L (3.5-5.1); SODIUM 139 MMOL/L (136-145)
[2019-12-25 07:37] LABS: BILIRUBIN,DIRECT 0.4 MG/DL (0.0-0.3)
--- NOTE | 2019-12-25 07:59 | NUR ---
NURSE HAND-OFF REPORT: Important Events on Shift: Patient Status: still complains of extreme pain, unmanaged by current regimen, Diet: NPO no caffeine, no chocolate Pending Orders: echo, stress test, renal ultrasound for abdominal pain Pending Results/Labs: am labs Pending MD notification: Dago will see pt today to assess Latest Vital Signs: Temperature 97.9 , Pulse 81 , B/P 141 /81 , Respiratory Rate 20 , O2 SAT 97 , Room Air, O2 Flow Rate . Vital Sign Comment: EKG Rhythm: Sinus Rhythm w PACs and PVCs, afib Rhythm change?: N MD Notified?: - MD Response: Latest Madison Fall Score: 75 Fall Risk: High Risk Safety Measures: Call light Within Reach, Bed Alarm Zone 1, Side Rails Side Rails x2, Bed position Low and Locked. Fall Precautions: Yellow Socks Yellow Gown Door Sign Patient Fall Education Report given to Yg BOLAND
[2019-12-25 08:00] VITALS: BP 125/64
--- NOTE | 2019-12-25 08:08 | NUR ---
Attempted to give patient injection of Tc99m Myoview for NM Myocardial Perfusion Scan. The patient refused the injection due to concerns of adverse effects. I explained that the patient had the same medicine for a stress test in 2013 and reassured that it is different from iodinated contrast material. The patient is skeptical and claims the stress test had to be stopped due to adverse effects from the medicine for the stress test. The patient then threatened litigation if I gave him the injection. The scan cannot be done without the Myoview injection. Informed KRYSTIAN Ronquillo and cardiology department.
[2019-12-25] MEDS: hydroCHLOROthiazide 25mg cap ORAL SCH (08:59)
[2019-12-25] MEDS: Tamsulosin 0.4mg cap ORAL SCH ×2 (08:59→17:09)
[2019-12-25 12:00] VITALS: BP 122/84
--- NOTE | 2019-12-25 12:48 | Consultation ---
History of Present Illness General Date patient seen: Dec 25, 2019 Time patient seen: 12:45 - pm Chief Complaint: Chest Pain Referring physician: jeronimo Reason for Consultation: Pain management Present Illness HPI This is a 74 y/o male seen on the tele floor of [facility] for comprehensive pain management consultation. Patient was admitted darius the care of Dr. Roy. Is a known patient with chronic pain issues. Was started on Dilaudid 1mg IV Q2H PRN which has been reducing his pain to a tolerable level. Allergies: Coded Allergies: MORPHINE (Verified Allergy, Severe, 11/07/10) NITROGLYCERIN (Verified Allergy, Severe, 11/07/10) KETOROLAC (Unverified Allergy, Intermediate, 03/14/14) FISH CONTAINING PRODUCTS (Verified Allergy, Mild, 07/20/14) per patient, "it knocks me out" ACETAMINOPHEN (Unverified Allergy, Unknown, 07/19/14) CODEINE (Unverified Allergy, Unknown, 11/03/13) UNKNOWN DIPHENHYDRAMINE (Unverified Allergy, Unknown, 09/30/14) IBUPROFEN (Unverified Allergy, Unknown, 11/03/13) UNKNOWN PROCHLORPERAZINE (Unverified Allergy, Unknown, 07/19/14) GABAPENTIN (Verified Adverse Reaction, Intermediate, 07/20/14) Per patient, it makes him sweat, throws up, and "blacks out" Uncoded Allergies: IV contrast (Allergy, Unknown, 11/30/19) Medication History Scheduled Apixaban (Eliquis*), 5 MG PO BID, (Reported) Atenolol* (Tenormin*), 50 MG ORAL BID Felodipine (Felodipine Er), 5 MG PO DAILY, (Reported) Hydrochlorothiazide* (Hydrochlorothiazide*), 25 MG ORAL DAILY Labetalol Hcl* (Normodyne*), 200 MG ORAL TID, (Reported) Scheduled PRN Zolpidem Tartrate* (Zolpidem Tartrate*), HS PRN for Insomnia, (Reported) Discontinued Medications Hydrocodone Bit/Acetaminophen 5-325* (Etna 5-325 Tablet*), 1 TAB ORAL Q6H PRN for FOR PAIN Discontinued Reason: discontinued med Tramadol Hcl* (Ultram*), 100 MG ORAL Q6H PRN for For Pain Discontinued Reason: MD discontinued med Patient History Healthcare decision maker Resuscitation status Advanced Directive on File Review of Systems ROS Narrative Constitutional: Denies: no symptoms, chills, diaphoresis, fever, malaise, weakness, other HEENT: Denies: no symptoms, eye pain, blurred vision, tearing, double vision, ear pain, ear discharge, nose pain, nose congestion, throat pain, throat swelling, mouth pain, mouth swelling, other Cardiovascular: Denies: no symptoms, chest pain, edema, irregular heart rate, lightheadedness, palpitations, syncope, other Respiratory: Denies: no symptoms, cough, orthopnea, shortness of breath, SOB with excertion, SOB at rest, sputum, stridor, wheezing, other Gastrointestinal/Abdominal: Denies: no symptoms, abdomen distended, abdominal pain, black stools, tarry stools, blood in stool, constipated, diarrhea, difficulty swallowing, nausea, poor appetite, poor fluid intake, rectal bleeding, vomiting, other Genitourinary: Denies: no symptoms, burning, discharge, frequency, flank pain, hematuria, incontinence, pain, urgency, other Neurologic/Psychiatric: Denies: no symptoms, anxiety, depressed, emotional problems, headache, numbness, paresthesia, pre-existing deficit, seizure, tingling, tremors, weakness, other Endocrine: Denies: no symptoms, excessive sweating, flushing, intolerance to cold, intolerance to heat, increased hunger, increased thirst, increased urine, unexplained weight gain, unexplained weight loss, other Hematologic/Lymphatic: Denies: no symptoms, anemia, easy bleeding, easy bruising, other Physical Exam Physical Exam Narrative General Appearance: no apparent distress, alert EENT: PERRL/EOMI, TMs normal Neck: non-tender, normal alignment, supple Cardiovascular: normal rate, regular rhythm Respiratory/Chest: chest wall non-tender, lungs clear Abdomen: non tender, soft Extremities: non-tender Edema: no edema noted Arm (L), no edema noted Arm (R), no edema noted Leg (L), no edema noted Leg (R), no edema noted Pedal (L), no edema noted Pedal (R), no edema noted Generalized Neurologic: alert, oriented x 3 Skin: normal pigmentation Last 24 Hour Vital Signs Date Time Temp Pulse Resp B/P (MAP) Pulse Ox O2 Delivery O2 Flow Rate FiO2 12/25/19 12:00 97.2 99 20 122/84 (97) 96 12/25/19 11:40 95 12/25/19 09:00 87 125/64 12/25/19 09:00 Room Air 12/25/19 08:00 96.9 87 18 125/64 (84) 95 12/25/19 07:35 89 12/25/19 07:22 97.7 12/25/19 05:32 97.7 12/25/19 04:08 97 12/25/19 04:01 97.7 96 20 138/96 (110) 95 12/25/19 03:25 97.5 12/25/19 01:17 97.5 12/25/19 01:17 91 20 159/69 99 12/25/19 00:47 91 20 159/69 99 12/25/19 00:01 100 12/25/19 00:00 98.2 95 18 154/88 (110) 98 12/24/19 23:33 97.5 12/24/19 21:27 97.5 12/24/19 21:00 Room Air 12/24/19 20:00 98.4 91 20 159/69 (99) 99 12/24/19 20:00 107 12/24/19 19:16 97.5 12/24/19 19:15 101 19 133/89 95 12/24/19 18:45 103 19 136/91 95 12/24/19 17:12 97.5 12/24/19 16:00 97.5 89 20 138/93 (108) 94 12/24/19 16:00 105 12/24/19 14:57 97.5 12/24/19 12:59 97.5 12/24/19 12:58 88 16 129/82 97 Intake and Output 12/24/19 12/25/19 19:00 07:00 Intake Total 100 ml 200 ml Balance 100 ml 200 ml IV Total 100 ml 200 ml # Voids 2 3 Laboratory Tests Test 12/24/19 14:45 12/25/19 05:30 Lactic Acid Level 1.00 mmol/L (0.4-2.0) White Blood Count 6.8 K/UL (4.8-10.8) Red Blood Count 4.77 M/UL (4.70-6.10) Hemoglobin 14.4 G/DL (14.2-18.0) Hematocrit 41.9 % (42.0-52.0) L Mean Corpuscular Volume 88 FL (80-99) Mean Corpuscular Hemoglobin 30.3 PG (27.0-31.0) Mean Corpuscular Hemoglobin Concent 34.5 G/DL (32.0-36.0) Red Cell Distribution Width 12.1 % (11.6-14.8) Platelet Count 154 K/UL (150-450) Mean Platelet Volume 11.6 FL (6.5-10.1) H Neutrophils (%) (Auto) 49.1 % (45.0-75.0) Lymphocytes (%) (Auto) 35.7 % (20.0-45.0) Monocytes (%) (Auto) 11.8 % (1.0-10.0) H Eosinophils (%) (Auto) 2.4 % (0.0-3.0) Basophils (%) (Auto) 1.1 % (0.0-2.0) Sodium Level 139 MMOL/L (136-145) Potassium Level 3.4 MMOL/L (3.5-5.1) L Chloride Level 104 MMOL/L (98-107) Carbon Dioxide Level 25 MMOL/L (21-32) Anion Gap 10 mmol/L (5-15) Blood Urea Nitrogen 9 mg/dL (7-18) Creatinine 1.1 MG/DL (0.55-1.30) Estimat Glomerular Filtration Rate > 60 mL/min (>60) Glucose Level 130 MG/DL (74-106) H Hemoglobin A1c 6.2 % (4.3-6.0) H Uric Acid 7.9 MG/DL (2.6-7.2) H Calcium Level 8.7 MG/DL (8.5-10.1) Phosphorus Level 2.5 MG/DL (2.5-4.9) Magnesium Level 2.0 MG/DL (1.8-2.4) Total Bilirubin 1.6 MG/DL (0.2-1.0) H Direct Bilirubin 0.4 MG/DL (0.0-0.3) H Gamma Glutamyl Transpeptidase 32 U/L (5-85) Aspartate Amino Transf (AST/SGOT) 81 U/L (15-37) H Alanine Aminotransferase (ALT/SGPT) 112 U/L (12-78) H Alkaline Phosphatase 100 U/L (46-116) C-Reactive Protein, Quantitative 2.7 mg/dL (0.00-0.90) H Pro-B-Type Natriuretic Peptide 104 pg/mL (0-125) Total Protein 7.1 G/DL (6.4-8.2) Albumin 3.5 G/DL (3.4-5.0) Globulin 3.6 g/dL Albumin/Globulin Ratio 1.0 (1.0-2.7) Height (Feet): 6 Height (Inches): 0.00 Weight (Pounds): 250 Medications Current Medications Medications (Trade) Dose Ordered Sig/Sheba Route PRN Reason Start Time Stop Time Status Last Admin Dose Admin Atenolol (Tenormin) 50 mg BID ORAL 12/25/19 09:00 01/24/20 08:59 Dextrose/ Electrolytes 1,000 ml @ 50 mls/hr Q20H IV 12/24/19 15:00 01/23/20 14:59 12/25/19 11:00 Hydrochlorothiazide (Hydrodiuril) 25 mg DAILY ORAL 12/25/19 09:00 01/24/20 08:59 12/25/19 08:59 Hydromorphone HCl (Dilaudid) 1 mg Q2H PRN IVP For Pain 12/24/19 13:51 12/31/19 13:50 12/25/19 11:00 Iohexol (Omnipaque 350 100ml) 100 ml NOW PRN INJ Radiology Procedure 12/23/19 19:00 12/25/19 18:59 Lorazepam (Ativan) 1 mg Q6H PRN ORAL For Anxiety 12/24/19 11:15 12/31/19 11:14 12/25/19 00:47 Pantoprazole (Protonix) 40 mg EVERY 12 HOURS ORAL 12/24/19 14:15 01/23/20 14:14 12/25/19 08:59 Potassium Chloride (K-Dur) 40 meq TWICE A DAY ORAL 12/25/19 10:00 03/24/20 09:59 12/25/19 10:59 Regadenoson (Lexiscan) 0.4 mg ONCE PRN IV RADIOLOGY 12/24/19 18:00 03/23/20 17:59 Tamsulosin HCl (Flomax) 0.4 mg BID ORAL 12/24/19 14:15 01/23/20 14:14 12/25/19 08:59 Assessment/Plan Assessment/Plan: (1) Hemiplegia, flaccid, nondominant side (2) Lumbar post-laminectomy syndrome (3) HO TKR (total knee replacement) (4) OA (osteoarthritis) of knee (5) Thalamic pain syndrome (6) CVA (cerebral vascular accident) We will continue patient on Dilaudid P/w Dr. Linn and Dr. Linn concurred. Fabiano Loza Dec 25, 2019 12:48
--- NOTE | 2019-12-25 13:05 | Cardiac Electrophysiology PN ---
Assessment/Plan Assessment/Plan 1. Chest pain. The patient with history of coronary artery disease. EKG demonstrates no acute ischemic changes. Ruled out for MT Echo EF 50% Refused stress test. 2. Paroxysmal atrial fibrillation, status post ablation in 2018, in sinus rhythm. On Atenolol 50 bid. Off Eliquis for possible bleeding 3. Status post bioprosthetic aortic valve replacement. 4. Status post thoracic aortic aneurysm repair. 5. Diabetes. Subjective Subjective Subjective Refused stress test as says is allergic to iv meds and not only contrast Objective Last 24 Hour Vital Signs Date Time Temp Pulse Resp B/P (MAP) Pulse Ox O2 Delivery O2 Flow Rate FiO2 12/25/19 12:00 97.2 99 20 122/84 (97) 96 12/25/19 11:40 95 12/25/19 09:00 87 125/64 12/25/19 09:00 Room Air 12/25/19 08:00 96.9 87 18 125/64 (84) 95 12/25/19 07:35 89 12/25/19 07:22 97.7 12/25/19 05:32 97.7 12/25/19 04:08 97 12/25/19 04:01 97.7 96 20 138/96 (110) 95 12/25/19 03:25 97.5 12/25/19 01:17 97.5 12/25/19 01:17 91 20 159/69 99 12/25/19 00:47 91 20 159/69 99 12/25/19 00:01 100 12/25/19 00:00 98.2 95 18 154/88 (110) 98 12/24/19 23:33 97.5 12/24/19 21:27 97.5 12/24/19 21:00 Room Air 12/24/19 20:00 98.4 91 20 159/69 (99) 99 12/24/19 20:00 107 12/24/19 19:16 97.5 12/24/19 19:15 101 19 133/89 95 12/24/19 18:45 103 19 136/91 95 12/24/19 17:12 97.5 12/24/19 16:00 97.5 89 20 138/93 (108) 94 12/24/19 16:00 105 12/24/19 14:57 97.5 12/24/19 12:59 97.5 12/24/19 12:58 88 16 129/82 97 Intake and Output 12/24/19 12/25/19 19:00 07:00 Intake Total 100 ml 200 ml Balance 100 ml 200 ml IV Total 100 ml 200 ml # Voids 2 3 Laboratory Tests Test 12/24/19 14:45 12/25/19 05:30 Lactic Acid Level 1.00 mmol/L (0.4-2.0) White Blood Count 6.8 K/UL (4.8-10.8) Red Blood Count 4.77 M/UL (4.70-6.10) Hemoglobin 14.4 G/DL (14.2-18.0) Hematocrit 41.9 % (42.0-52.0) L Mean Corpuscular Volume 88 FL (80-99) Mean Corpuscular Hemoglobin 30.3 PG (27.0-31.0) Mean Corpuscular Hemoglobin Concent 34.5 G/DL (32.0-36.0) Red Cell Distribution Width 12.1 % (11.6-14.8) Platelet Count 154 K/UL (150-450) Mean Platelet Volume 11.6 FL (6.5-10.1) H Neutrophils (%) (Auto) 49.1 % (45.0-75.0) Lymphocytes (%) (Auto) 35.7 % (20.0-45.0) Monocytes (%) (Auto) 11.8 % (1.0-10.0) H Eosinophils (%) (Auto) 2.4 % (0.0-3.0) Basophils (%) (Auto) 1.1 % (0.0-2.0) Sodium Level 139 MMOL/L (136-145) Potassium Level 3.4 MMOL/L (3.5-5.1) L Chloride Level 104 MMOL/L (98-107) Carbon Dioxide Level 25 MMOL/L (21-32) Anion Gap 10 mmol/L (5-15) Blood Urea Nitrogen 9 mg/dL (7-18) Creatinine 1.1 MG/DL (0.55-1.30) Estimat Glomerular Filtration Rate > 60 mL/min (>60) Glucose Level 130 MG/DL (74-106) H Hemoglobin A1c 6.2 % (4.3-6.0) H Uric Acid 7.9 MG/DL (2.6-7.2) H Calcium Level 8.7 MG/DL (8.5-10.1) Phosphorus Level 2.5 MG/DL (2.5-4.9) Magnesium Level 2.0 MG/DL (1.8-2.4) Total Bilirubin 1.6 MG/DL (0.2-1.0) H Direct Bilirubin 0.4 MG/DL (0.0-0.3) H Gamma Glutamyl Transpeptidase 32 U/L (5-85) Aspartate Amino Transf (AST/SGOT) 81 U/L (15-37) H Alanine Aminotransferase (ALT/SGPT) 112 U/L (12-78) H Alkaline Phosphatase 100 U/L (46-116) C-Reactive Protein, Quantitative 2.7 mg/dL (0.00-0.90) H Pro-B-Type Natriuretic Peptide 104 pg/mL (0-125) Total Protein 7.1 G/DL (6.4-8.2) Albumin 3.5 G/DL (3.4-5.0) Globulin 3.6 g/dL Albumin/Globulin Ratio 1.0 (1.0-2.7) Objective HEAD AND NECK: No JVD. LUNGS: Clear. CARDIOVASCULAR: Irregular S1 and S2 with no gallop. ABDOMEN: Soft. EXTREMITIES: 1+ pitting edema. Juan Carlos Orosco MD Dec 25, 2019 13:05
--- NOTE | 2019-12-25 13:11 | NUR ---
CARDIOLOGY I discussed with the eligibility analyst on panel today Dr. Tellez regarding to Dobutamine Echo stress test. Provided the Echo acoustic windows are very poor, Dr. Tellez did not recommended on doing Dobutamine Echo Stress test. He said that with this poor Echo windows there is no point to do Echo Stress unless there is Contrast Agent which we do not have.
--- NOTE | 2019-12-25 13:14 | Nephrology Progress Note ---
Assessment/Plan Problem List: (1) Electrolyte imbalance (2) UTI (urinary tract infection) (3) Proteinuria Assessment 74-year-old male presents with chest pain and suprapubic pain Hypokalemia Cystitis, possible UTI Possible colonic spasm Fatty liver Coronary artery disease, valvular heart disease History of CVA with left weakness Plan Potassium supplement Monitor renal parameters and electrolytes Continue per consultants Will start on Flomax Will obtain urine for culture and sensitivity Subjective ROS Limited/Unobtainable: No Constitutional: Reports: malaise Objective Objective Last 24 Hour Vital Signs Date Time Temp Pulse Resp B/P (MAP) Pulse Ox O2 Delivery O2 Flow Rate FiO2 12/25/19 12:00 97.2 99 20 122/84 (97) 96 12/25/19 11:40 95 12/25/19 09:00 87 125/64 12/25/19 09:00 Room Air 12/25/19 08:00 96.9 87 18 125/64 (84) 95 12/25/19 07:35 89 12/25/19 07:22 97.7 12/25/19 05:32 97.7 12/25/19 04:08 97 12/25/19 04:01 97.7 96 20 138/96 (110) 95 12/25/19 03:25 97.5 12/25/19 01:17 97.5 12/25/19 01:17 91 20 159/69 99 12/25/19 00:47 91 20 159/69 99 12/25/19 00:01 100 12/25/19 00:00 98.2 95 18 154/88 (110) 98 12/24/19 23:33 97.5 12/24/19 21:27 97.5 12/24/19 21:00 Room Air 12/24/19 20:00 98.4 91 20 159/69 (99) 99 12/24/19 20:00 107 12/24/19 19:16 97.5 12/24/19 19:15 101 19 133/89 95 12/24/19 18:45 103 19 136/91 95 12/24/19 17:12 97.5 12/24/19 16:00 97.5 89 20 138/93 (108) 94 12/24/19 16:00 105 12/24/19 14:57 97.5 Intake and Output 12/24/19 12/25/19 19:00 07:00 Intake Total 100 ml 200 ml Balance 100 ml 200 ml IV Total 100 ml 200 ml # Voids 2 3 Laboratory Tests 12/24/19 14:45: Lactic Acid Level 1.00 12/25/19 05:30: White Blood Count 6.8, Red Blood Count 4.77, Hemoglobin 14.4, Hematocrit 41.9L, Mean Corpuscular Volume 88, Mean Corpuscular Hemoglobin 30.3, Mean Corpuscular Hemoglobin Concent 34.5, Red Cell Distribution Width 12.1, Platelet Count 154, Mean Platelet Volume 11.6H, Neutrophils (%) (Auto) 49.1, Lymphocytes (%) (Auto) 35.7, Monocytes (%) (Auto) 11.8H, Eosinophils (%) (Auto) 2.4, Basophils (%) (Auto) 1.1, Sodium Level 139, Potassium Level 3.4L, Chloride Level 104, Carbon Dioxide Level 25, Anion Gap 10, Blood Urea Nitrogen 9, Creatinine 1.1, Estimat Glomerular Filtration Rate > 60, Glucose Level 130H, Hemoglobin A1c 6.2H, Uric Acid 7.9H, Calcium Level 8.7, Phosphorus Level 2.5, Magnesium Level 2.0, Total Bilirubin 1.6H, Direct Bilirubin 0.4H, Gamma Glutamyl Transpeptidase 32, Aspartate Amino Transf (AST/SGOT) 81H, Alanine Aminotransferase (ALT/SGPT) 112H, Alkaline Phosphatase 100, C-Reactive Protein, Quantitative 2.7H, Pro-B-Type Natriuretic Peptide 104, Total Protein 7.1, Albumin 3.5, Globulin 3.6, Albumin/Globulin Ratio 1.0 Height (Feet): 6 Height (Inches): 0.00 Weight (Pounds): 250 General Appearance: no apparent distress Respiratory/Chest: decreased breath sounds Abdomen: soft, distended Jose Gracia MD Dec 25, 2019 13:14
--- NOTE | 2019-12-25 15:00 | NUR ---
NURSE NOTES: pt tolerated clear liquid, no N/V noted. Dr Roy is aware and ordered to advance to regular diet. noted and carried out. will continue to monitor.
--- NOTE | 2019-12-25 15:08 | NUR ---
CASE MANAGEMENT:REVIEW 74 YR OLD MALE CC: CHEST PAIN PMH: CAD SI: CHEST PAIN. ILEUS 98.6 66 18 158/91 99% ON RA PLT-138 K-3.0 AST/ALT+87/100 IS: IV DILAUDID X3 1L NS BOLUS K-DUR PO X2 SORBITOL PO X1 : TO TELEMETRY PLAN: STRESS TEST
[2019-12-25 16:00] VITALS: BP 139/91
--- NOTE | 2019-12-25 19:06 | Diagnostic Imaging Report ---
Indication: Left lower quadrant pain, pelvic pain Technique: Grayscale and duplex images of the kidneys, retroperitoneum, and bladder were obtained. Comparison: Abdominal sonogram 11/27/2019 Findings: Right kidney measures 11.3 cm in length. Left kidney measures 13.1 cm in length. Both kidneys demonstrate normal echogenicity. No hydronephrosis. Left renal cysts again demonstrated. Normal inferior vena cava. Bladder is normal. Prostate volume is 51 mL Impression: Negative for hydronephrosis Left renal cysts, also previously reported.
--- NOTE | 2019-12-25 19:15 | Consultation ---
DATE OF CONSULTATION: 12/25/2019 REASON FOR CONSULTATION: Scrotal pain. HISTORY OF PRESENT ILLNESS: The patient is a 74-year-old admitted for abdominal pain, history of repaired thoracic aneurysm several years ago. The patient is on Eliquis. PAST MEDICAL HISTORY: Significant for coronary artery disease, thoracic aneurysm, and atrial fibrillation. PAST SURGICAL HISTORY: Mitral valve prolapse repair, thoracic aneurysm repair. ALLERGIES: Noted. REVIEW OF SYMPTOMS: The patient is complaining of low abdominal pain, mild scrotal pain. PHYSICAL EXAMINATION: GENERAL: He is currently afebrile. VITAL SIGNS: Stable. NEUROLOGICAL: Intact. LUNGS: Clear to auscultation. CARDIOVASCULAR: Atrial fibrillation. ABDOMEN: Soft, nontender. Slight tenderness of the suprapubic area. No palpable bladder. No CVA tenderness. SCROTUM: Exam shows palpable both testes. No evidence of hydrocele. No evidence of swelling. Penile exam is normal. He deferred prostate exam. LABORATORY DATA: Reviewed, showed a white count of 6.8 and creatinine of 1.1. Had abdominal and pelvic CT 2 days before, which eventually showed moderate colonic stool and air with might be mild ileus. No evidence of bowel obstruction. ASSESSMENT AND PLAN: The patient has low abdominal pain. His scrotal exam is normal. No further action from the urology standpoint is needed. Puneet Olivas M.D. DR: MUKUND JOB#: [id number] CC:
--- NOTE | 2019-12-25 19:41 | NUR ---
NURSE HAND-OFF REPORT: Important Events on Shift: Patient Status: Diet: Pending Orders: Pending Results/Labs: Pending MD notification: Latest Vital Signs: Temperature 99.1 , Pulse 100 , B/P 139 /91 , Respiratory Rate 18 , O2 SAT 97 , Room Air, O2 Flow Rate . Vital Sign Comment: EKG Rhythm: Sinus Rhythm Rhythm change?: N MD Notified?: N - MD Response: Latest Madison Fall Score: 75 Fall Risk: High Risk Safety Measures: Call light Within Reach, Bed Alarm Zone 2, Side Rails Side Rails x3, Bed position Low and Locked. Fall Precautions: Yellow Socks Yellow Gown Report given to . Pt is awake and stabel, no stress noted. Endorsed plan of care. Endorsed pain meds. and F/U OB.
--- NOTE | 2019-12-25 19:42 | NUR ---
NURSE NOTES: Received report from Yg BOLAND.The patient is alert and oriented x4, was complaining of some pain and was given his PRN Dilaudid as indicated. The patient have a left AC 20g that is intact and asymptomatics.The Resp is even and unlabored and the is no evidence of an acute distress at this time. The Urinal at bedside, the bed in low and locked level and the call light within easy reach and siderails up x3. Will continue to monitor
[2019-12-25 20:00] VITALS: BP 117/55
--- NOTE | 2019-12-25 20:04 | NUR ---
NURSE NOTES: Endorsed to Dr. Murphy that patient has order for OB stool collection but is not on bowel regimen or PRN laxatives and patient is on Dilaudid q2h PRN for pain. Per Dr. Murphy, "give Sorbitol 60 cc x1 PO". Will carry out order accordingly and monitor patient.
--- NOTE | 2019-12-25 20:06 | General Progress Note ---
Subjective ROS Limited/Unobtainable: Yes Allergies: Coded Allergies: MORPHINE (Verified Allergy, Severe, 11/07/10) NITROGLYCERIN (Verified Allergy, Severe, 11/07/10) KETOROLAC (Unverified Allergy, Intermediate, 03/14/14) FISH CONTAINING PRODUCTS (Verified Allergy, Mild, 07/20/14) per patient, "it knocks me out" ACETAMINOPHEN (Unverified Allergy, Unknown, 07/19/14) CODEINE (Unverified Allergy, Unknown, 11/03/13) UNKNOWN DIPHENHYDRAMINE (Unverified Allergy, Unknown, 09/30/14) IBUPROFEN (Unverified Allergy, Unknown, 11/03/13) UNKNOWN PROCHLORPERAZINE (Unverified Allergy, Unknown, 07/19/14) GABAPENTIN (Verified Adverse Reaction, Intermediate, 07/20/14) Per patient, it makes him sweat, throws up, and "blacks out" Uncoded Allergies: IV contrast (Allergy, Unknown, 11/30/19) Objective Last 24 Hour Vital Signs Date Time Temp Pulse Resp B/P (MAP) Pulse Ox O2 Delivery O2 Flow Rate FiO2 12/25/19 17:09 100 139/91 12/25/19 16:00 99.1 100 18 139/91 (107) 97 12/25/19 15:34 96 12/25/19 12:00 97.2 99 20 122/84 (97) 96 12/25/19 11:40 95 12/25/19 09:00 87 125/64 12/25/19 09:00 Room Air 12/25/19 08:00 96.9 87 18 125/64 (84) 95 12/25/19 07:35 89 12/25/19 07:22 97.7 12/25/19 05:32 97.7 12/25/19 04:08 97 12/25/19 04:01 97.7 96 20 138/96 (110) 95 12/25/19 03:25 97.5 12/25/19 01:17 97.5 12/25/19 01:17 91 20 159/69 99 12/25/19 00:47 91 20 159/69 99 12/25/19 00:01 100 12/25/19 00:00 98.2 95 18 154/88 (110) 98 12/24/19 23:33 97.5 12/24/19 21:27 97.5 12/24/19 21:00 Room Air Intake and Output 12/24/19 12/25/19 19:00 07:00 Intake Total 100 ml 250 ml Balance 100 ml 250 ml IV Total 100 ml 250 ml # Voids 2 3 Laboratory Tests 12/25/19 05:30: White Blood Count 6.8, Red Blood Count 4.77, Hemoglobin 14.4, Hematocrit 41.9L, Mean Corpuscular Volume 88, Mean Corpuscular Hemoglobin 30.3, Mean Corpuscular Hemoglobin Concent 34.5, Red Cell Distribution Width 12.1, Platelet Count 154, Mean Platelet Volume 11.6H, Neutrophils (%) (Auto) 49.1, Lymphocytes (%) (Auto) 35.7, Monocytes (%) (Auto) 11.8H, Eosinophils (%) (Auto) 2.4, Basophils (%) (Auto) 1.1, Sodium Level 139, Potassium Level 3.4L, Chloride Level 104, Carbon Dioxide Level 25, Anion Gap 10, Blood Urea Nitrogen 9, Creatinine 1.1, Estimat Glomerular Filtration Rate > 60, Glucose Level 130H, Hemoglobin A1c 6.2H, Uric Acid 7.9H, Calcium Level 8.7, Phosphorus Level 2.5, Magnesium Level 2.0, Total Bilirubin 1.6H, Direct Bilirubin 0.4H, Gamma Glutamyl Transpeptidase 32, Aspartate Amino Transf (AST/SGOT) 81H, Alanine Aminotransferase (ALT/SGPT) 112H, Alkaline Phosphatase 100, C-Reactive Protein, Quantitative 2.7H, Pro-B-Type Natriuretic Peptide 104, Total Protein 7.1, Albumin 3.5, Globulin 3.6, Albumin/Globulin Ratio 1.0 Height (Feet): 6 Height (Inches): 0.00 Weight (Pounds): 250 Assessment/Plan Problem List: (1) Ileus ICD Codes: K56.7 - Ileus, unspecified SNOMED: 925969920 (2) Paroxysmal atrial fibrillation ICD Codes: I48.0 - Paroxysmal atrial fibrillation SNOMED: 630595704 (3) CHF (congestive heart failure) ICD Codes: I50.9 - Heart failure, unspecified SNOMED: 95990596 (4) Extremity pain ICD Codes: M79.609 - Pain in unspecified limb SNOMED: 38410530 (5) Generalized weakness ICD Codes: R53.1 - Weakness SNOMED: 03480502 (6) Proteinuria ICD Codes: R80.9 - Proteinuria, unspecified SNOMED: 55682216 (7) UTI (urinary tract infection) ICD Codes: N39.0 - Urinary tract infection, site not specified SNOMED: 21842392 (8) Electrolyte imbalance ICD Codes: E87.8 - Other disorders of electrolyte and fluid balance, not elsewhere classified SNOMED: 513365534 (9) CVA (cerebral vascular accident) ICD Codes: I63.9 - Cerebral infarction, unspecified SNOMED: 078763072 (10) Anemia ICD Codes: D64.9 - Anemia, unspecified SNOMED: 795098043 Status: progressing Assessment/Plan: afebrile advance diet urology consulted inguinal pain reviewed chart and labs dc planning no cp Rafaela Roy MD Dec 25, 2019 20:06
[2019-12-25] MEDS ORDERED: Sorbitol Solution UD 30ml ORAL ONE (21:00)
--- NOTE | 2019-12-25 21:20 | General Progress Note ---
Subjective Allergies: Coded Allergies: MORPHINE (Verified Allergy, Severe, 11/07/10) NITROGLYCERIN (Verified Allergy, Severe, 11/07/10) KETOROLAC (Unverified Allergy, Intermediate, 03/14/14) FISH CONTAINING PRODUCTS (Verified Allergy, Mild, 07/20/14) per patient, "it knocks me out" ACETAMINOPHEN (Unverified Allergy, Unknown, 07/19/14) CODEINE (Unverified Allergy, Unknown, 11/03/13) UNKNOWN DIPHENHYDRAMINE (Unverified Allergy, Unknown, 09/30/14) IBUPROFEN (Unverified Allergy, Unknown, 11/03/13) UNKNOWN PROCHLORPERAZINE (Unverified Allergy, Unknown, 07/19/14) GABAPENTIN (Verified Adverse Reaction, Intermediate, 07/20/14) Per patient, it makes him sweat, throws up, and "blacks out" Uncoded Allergies: IV contrast (Allergy, Unknown, 11/30/19) Subjective appears comfortable, looking at his cell phone on my arrival complains of lower abd pain [facility] EGD/Colon noted (01/17/2019): 1.Small hiatal hernia. 2.Small inlet patch. 3.Oozing 15 mm mid ascending colon polyp status post lift, snare polypectomy and hemoclip placement. 4.Right transverse colon 5 mm polyp status post cold snare removal. 5.Rectal 3 mm polyp status post forceps removal. 6.Left-sided diverticulosis. 7.Poor colon prep. Objective Last 24 Hour Vital Signs Date Time Temp Pulse Resp B/P (MAP) Pulse Ox O2 Delivery O2 Flow Rate FiO2 12/25/19 17:09 100 139/91 12/25/19 16:00 99.1 100 18 139/91 (107) 97 12/25/19 15:34 96 12/25/19 12:00 97.2 99 20 122/84 (97) 96 12/25/19 11:40 95 12/25/19 09:00 87 125/64 12/25/19 09:00 Room Air 12/25/19 08:00 96.9 87 18 125/64 (84) 95 12/25/19 07:35 89 12/25/19 07:22 97.7 12/25/19 05:32 97.7 12/25/19 04:08 97 12/25/19 04:01 97.7 96 20 138/96 (110) 95 12/25/19 03:25 97.5 12/25/19 01:17 97.5 12/25/19 01:17 91 20 159/69 99 12/25/19 00:47 91 20 159/69 99 12/25/19 00:01 100 12/25/19 00:00 98.2 95 18 154/88 (110) 98 12/24/19 23:33 97.5 12/24/19 21:27 97.5 Intake and Output 12/24/19 12/25/19 19:00 07:00 Intake Total 100 ml 250 ml Balance 100 ml 250 ml IV Total 100 ml 250 ml # Voids 2 3 Laboratory Tests 12/25/19 05:30: White Blood Count 6.8, Red Blood Count 4.77, Hemoglobin 14.4, Hematocrit 41.9L, Mean Corpuscular Volume 88, Mean Corpuscular Hemoglobin 30.3, Mean Corpuscular Hemoglobin Concent 34.5, Red Cell Distribution Width 12.1, Platelet Count 154, Mean Platelet Volume 11.6H, Neutrophils (%) (Auto) 49.1, Lymphocytes (%) (Auto) 35.7, Monocytes (%) (Auto) 11.8H, Eosinophils (%) (Auto) 2.4, Basophils (%) (Auto) 1.1, Sodium Level 139, Potassium Level 3.4L, Chloride Level 104, Carbon Dioxide Level 25, Anion Gap 10, Blood Urea Nitrogen 9, Creatinine 1.1, Estimat Glomerular Filtration Rate > 60, Glucose Level 130H, Hemoglobin A1c 6.2H, Uric Acid 7.9H, Calcium Level 8.7, Phosphorus Level 2.5, Magnesium Level 2.0, Total Bilirubin 1.6H, Direct Bilirubin 0.4H, Gamma Glutamyl Transpeptidase 32, Aspartate Amino Transf (AST/SGOT) 81H, Alanine Aminotransferase (ALT/SGPT) 112H, Alkaline Phosphatase 100, C-Reactive Protein, Quantitative 2.7H, Pro-B-Type Natriuretic Peptide 104, Total Protein 7.1, Albumin 3.5, Globulin 3.6, Albumin/Globulin Ratio 1.0 Height (Feet): 6 Height (Inches): 0.00 Weight (Pounds): 250 Objective WDWN man NCAT, appears comfortable CTA RR Abd soft, lower abd TTP no edema Assessment/Plan Status: progressing Assessment/Plan: Assessment - suprapubic abd pain, ? etiology - ? rectal blood (patient did not see) - Abnormal LFT, not new - possible Fatty liver - CAD - valvular heart disease - h/o CVA with (L) weakness - CP Recommendations - check lactate - normal - check OB - pending BM - laxative - serial exam - pain control Chris Murphy MD Dec 25, 2019 21:20
--- NOTE | 2019-12-25 23:50 | Psych Consult Progress Note ---
Psychiatry Progress Note Psychiatry Progress Note Medications Current Medications Medications (Trade) Dose Ordered Sig/Sheba Route PRN Reason Start Time Stop Time Status Last Admin Dose Admin Atenolol (Tenormin) 50 mg BID ORAL 12/25/19 09:00 01/24/20 08:59 12/25/19 17:09 Dextrose/ Electrolytes 1,000 ml @ 50 mls/hr Q20H IV 12/24/19 15:00 01/23/20 14:59 12/25/19 11:00 Hydrochlorothiazide (Hydrodiuril) 25 mg DAILY ORAL 12/25/19 09:00 01/24/20 08:59 12/25/19 08:59 Hydromorphone HCl (Dilaudid) 1 mg Q2H PRN IVP For Pain 12/24/19 13:51 12/31/19 13:50 12/25/19 21:37 Lorazepam (Ativan) 1 mg Q6H PRN ORAL For Anxiety 12/24/19 11:15 12/31/19 11:14 12/25/19 00:47 Pantoprazole (Protonix) 40 mg EVERY 12 HOURS ORAL 12/24/19 14:15 01/23/20 14:14 12/25/19 21:37 Potassium Chloride (K-Dur) 40 meq TWICE A DAY ORAL 12/25/19 10:00 03/24/20 09:59 12/25/19 17:09 Regadenoson (Lexiscan) 0.4 mg ONCE PRN IV RADIOLOGY 12/24/19 18:00 03/23/20 17:59 Tamsulosin HCl (Flomax) 0.4 mg BID ORAL 12/24/19 14:15 01/23/20 14:14 12/25/19 17:09 Neurological/Psychiatric: Reports: anxiety, depressed, emotional problems, headache Allergies: Coded Allergies: MORPHINE (Verified Allergy, Severe, 11/07/10) NITROGLYCERIN (Verified Allergy, Severe, 11/07/10) KETOROLAC (Unverified Allergy, Intermediate, 03/14/14) FISH CONTAINING PRODUCTS (Verified Allergy, Mild, 07/20/14) per patient, "it knocks me out" ACETAMINOPHEN (Unverified Allergy, Unknown, 07/19/14) CODEINE (Unverified Allergy, Unknown, 11/03/13) UNKNOWN DIPHENHYDRAMINE (Unverified Allergy, Unknown, 09/30/14) IBUPROFEN (Unverified Allergy, Unknown, 11/03/13) UNKNOWN PROCHLORPERAZINE (Unverified Allergy, Unknown, 07/19/14) GABAPENTIN (Verified Adverse Reaction, Intermediate, 07/20/14) Per patient, it makes him sweat, throws up, and "blacks out" Uncoded Allergies: IV contrast (Allergy, Unknown, 11/30/19) Objective Data Height (Feet): 6 Height (Inches): 0.00 Weight (Pounds): 250 General Appearance: no apparent distress Additional Comments: patient is alert and oriented times self, place, and situation. Mood is anxious. Affect is blunted, congruent with mood. Thought process is concrete. Thought content, no suicidal or homicidal ideation. Cognition is impaired. Insight and judgment are impaired. Assessment/Plan Status: progressing Assessment/Plan: ASSESSMENT: Lie[place] I Anxiety disorder. [place] II Deferred. [place] III As above. [place] IV Low. [place] V 20 PLAN: 1. We will do Ativan p.r.n. 2. Provide the patient with reality orientation and supportive therapy. Marko Smith MD Dec 25, 2019 23:50
[2019-12-26] VITALS: BP 132/82
[2019-12-26] MEDS: HYDROmorphone 1mg/ml Carpuject IVP PRN ×6 (01:40→12:31)
--- NOTE | 2019-12-26 01:41 | NUR ---
NURSE NOTES: Patient had one BM, OB stool collected per order.
--- NOTE | 2019-12-26 02:15 | Consultation ---
DATE OF CONSULTATION: 12/24/2019 CONSULTING PHYSICIAN: Marko Smith M.D. The patient was seen yesterday. HISTORY OF PRESENT ILLNESS: The patient presented with depressed mood, anhedonia, worthlessness, hopelessness, complaining of severe pain. The patient stated that he has suicidal ideation due to severe pain. He did not have any intention and requested his pain medications severe anxiety. PAST MEDICAL HISTORY: UTI, headache, sepsis, hypertension, CVA, anemia, and CAD. ALLERGIES: Acetaminophen, codeine, diphenhydramine, ibuprofen, morphine, and ketorolac. PAST PSYCHIATRIC HISTORY: Anxiety, depression. SUBSTANCE ABUSE HISTORY: No known history of illicit drug use or alcohol. MENTAL STATUS EXAMINATION: The patient is alert and oriented times self, place, and situation. Mood is anxious. Affect is blunted, congruent with mood. Thought process is concrete. Thought content, no suicidal or homicidal ideation. Cognition is impaired. Insight and judgment are impaired. ASSESSMENT: Ripley I Anxiety disorder. Ripley II Deferred. Ripley III As above. [place] IV Low. [place] V 20 PLAN: 1. We will do Ativan p.r.n. 2. Provide the patient with reality orientation and supportive therapy. Marko Smith M.D. DR: BG JOB#: [id number] CC:
[2019-12-26 04:00] VITALS: BP 124/67
--- NOTE | 2019-12-26 07:22 | NUR ---
NURSE HAND-OFF REPORT: Important Events on Shift: PRN Dilaudid given as needed. Sorbitol PO x1 given, OB stool collected Patient Status: Stable Diet: Regular Pending Orders: n/a Pending Results/Labs: n/a Pending MD notification: n/a Latest Vital Signs: Temperature 98.4 , Pulse 74 , B/P 124 /67 , Respiratory Rate 18 , O2 SAT 97 , Room Air, O2 Flow Rate . Vital Sign Comment: WNL EKG Rhythm: SR w 1AVB Rhythm change?: N MD Notified?: N - MD Response: Latest Madison Fall Score: 75 Fall Risk: High Risk Safety Measures: Call light Within Reach, Bed Alarm Zone 2, Side Rails Side Rails x3, Bed position Low and Locked. Fall Precautions: Yes Yellow Socks Yellow Gown Report given to KRYSTIAN Dick.
--- NOTE | 2019-12-26 07:23 | NUR ---
NURSE NOTES: RECEIVED PATIENT FROM [facility] IN BED SLEEPING. NO S/S OF RESPIRATORY DISTRESS NOTED AT THIS TIME. IV IS ON LFA RUNNING D5 NS W/20MEQ KCL @ 50MLS/HR. BED IS ON LOWEST LEVEL WITH BEDSIDE RAILS UP X2, BRAKES ENGAGED FOR SAFETY. WILL CONTINUE WITH THE PLAN OF CARE.
[2019-12-26 08:00] VITALS: BP 132/77
[2019-12-26] MEDS: Tamsulosin 0.4mg cap ORAL SCH (08:13)
[2019-12-26] MEDS: hydroCHLOROthiazide 25mg cap ORAL SCH (08:13)
--- NOTE | 2019-12-26 08:56 | General Progress Note ---
Subjective Date patient seen: Dec 26, 2019 Time patient seen: 08:45 - am Allergies: Coded Allergies: MORPHINE (Verified Allergy, Severe, 11/07/10) NITROGLYCERIN (Verified Allergy, Severe, 11/07/10) KETOROLAC (Unverified Allergy, Intermediate, 03/14/14) FISH CONTAINING PRODUCTS (Verified Allergy, Mild, 07/20/14) per patient, "it knocks me out" ACETAMINOPHEN (Unverified Allergy, Unknown, 07/19/14) CODEINE (Unverified Allergy, Unknown, 11/03/13) UNKNOWN DIPHENHYDRAMINE (Unverified Allergy, Unknown, 09/30/14) IBUPROFEN (Unverified Allergy, Unknown, 11/03/13) UNKNOWN PROCHLORPERAZINE (Unverified Allergy, Unknown, 07/19/14) GABAPENTIN (Verified Adverse Reaction, Intermediate, 07/20/14) Per patient, it makes him sweat, throws up, and "blacks out" Uncoded Allergies: IV contrast (Allergy, Unknown, 11/30/19) Subjective Constitutional: Denies: no symptoms, chills, diaphoresis, fever, malaise, weakness, other HEENT: Denies: no symptoms, eye pain, blurred vision, tearing, double vision, ear pain, ear discharge, nose pain, nose congestion, throat pain, throat swelling, mouth pain, mouth swelling, other Cardiovascular: Denies: no symptoms, chest pain, edema, irregular heart rate, lightheadedness, palpitations, syncope, other Respiratory: Denies: no symptoms, cough, orthopnea, shortness of breath, SOB with excertion, SOB at rest, sputum, stridor, wheezing, other Gastrointestinal/Abdominal: Denies: no symptoms, abdomen distended, abdominal pain, black stools, tarry stools, blood in stool, constipated, diarrhea, dif ficulty swallowing, nausea, poor appetite, poor fluid intake, rectal bleeding, vomiting, other Genitourinary: Denies: no symptoms, burning, discharge, frequency, flank pain, hematuria, incontinence, pain, urgency, other Neurologic/Psychiatric: Denies: no symptoms, anxiety, depressed, emotional problems, headache, numbness, paresthesia, pre-existing deficit, seizure, tingling, tremors, weakness, other Endocrine: Denies: no symptoms, excessive sweating, flushing, intolerance to cold, intolerance to heat, increased hunger, increased thirst, increased urine, unexplained weight gain, unexplained weight loss, other Hematologic/Lymphatic: Denies: no symptoms, anemia, easy bleeding, easy bruising, other This is a 74 y/o male seen on the tele floor of [facility] [place]. Patient continues to c/o pain which has been tolerated on the Dilaudid. No new complaints at this time. Objective Last 24 Hour Vital Signs Date Time Temp Pulse Resp B/P (MAP) Pulse Ox O2 Delivery O2 Flow Rate FiO2 12/26/19 08:13 70 132/77 12/26/19 04:00 74 12/26/19 04:00 98.4 92 18 124/67 (86) 97 12/26/19 00:00 72 12/26/19 00:00 98.8 81 17 132/82 (99) 96 12/25/19 21:00 Room Air 12/25/19 20:00 80 12/25/19 20:00 98.2 70 18 117/55 (75) 97 12/25/19 17:09 100 139/91 12/25/19 16:00 99.1 100 18 139/91 (107) 97 12/25/19 15:34 96 12/25/19 12:00 97.2 99 20 122/84 (97) 96 12/25/19 11:40 95 12/25/19 09:00 87 125/64 12/25/19 09:00 Room Air Intake and Output 12/25/19 12/26/19 19:00 07:00 Intake Total 600 ml 500 ml Output Total 550 ml Balance 50 ml 500 ml IV Total 600 ml 500 ml Output Urine Total 550 ml # Voids 4 # Bowel Movements 1 Laboratory Tests 12/26/19 01:49: Stool Occult Blood [Pending] Height (Feet): 6 Height (Inches): 0.00 Weight (Pounds): 250 Objective General Appearance: no apparent distress, alert EENT: PERRL/EOMI, TMs normal Neck: non-tender, normal alignment, supple Cardiovascular: normal rate, regular rhythm Respiratory/Chest: chest wall non-tender, lungs clear Abdomen: non tender, soft Extremities: non-tender Edema: no edema noted Arm (L), no edema noted Arm (R), no edema noted Leg (L), no edema noted Leg (R), no edema noted Pedal (L), no edema noted Pedal (R), no edema noted Generalized Neurologic: alert, oriented x 3 Skin: normal pigmentation Assessment/Plan Assessment/Plan: (1) Hemiplegia, flaccid, nondominant side (2) Lumbar post-laminectomy syndrome (3) HO TKR (total knee replacement) (4) OA (osteoarthritis) of knee (5) Thalamic pain syndrome (6) CVA (cerebral vascular accident) We will continue patient on Dilaudid P/w Dr. Linn and Dr. Linn concurred. Fabiano Loza Dec 26, 2019 08:56
--- NOTE | 2019-12-26 11:16 | Cardiac Electrophysiology PN ---
Assessment/Plan Assessment/Plan 1. Chest pain. The patient with history of coronary artery disease. EKG demonstrates no acute ischemic changes. Ruled out for [place] Echo EF 50% Refused stress test. 2. Paroxysmal atrial fibrillation, status post ablation in 2018, in sinus rhythm. On Atenolol 50 bid. Off Eliquis for possible bleeding 3. Status post bioprosthetic aortic valve replacement. 4. Status post thoracic aortic aneurysm repair. 5. Diabetes. CARLO RN Subjective Subjective Refused stress test as says is allergic to iv meds and not only contrast. Asking for Dilaudid and had 3 trays of breakfast. In SR Objective Last 24 Hour Vital Signs Date Time Temp Pulse Resp B/P (MAP) Pulse Ox O2 Delivery O2 Flow Rate FiO2 12/26/19 08:13 70 132/77 12/26/19 04:00 74 12/26/19 04:00 98.4 92 18 124/67 (86) 97 12/26/19 00:00 72 12/26/19 00:00 98.8 81 17 132/82 (99) 96 12/25/19 21:00 Room Air 12/25/19 20:00 80 12/25/19 20:00 98.2 70 18 117/55 (75) 97 12/25/19 17:09 100 139/91 12/25/19 16:00 99.1 100 18 139/91 (107) 97 12/25/19 15:34 96 12/25/19 12:00 97.2 99 20 122/84 (97) 96 12/25/19 11:40 95 Intake and Output 12/25/19 12/26/19 19:00 07:00 Intake Total 600 ml 500 ml Output Total 550 ml Balance 50 ml 500 ml IV Total 600 ml 500 ml Output Urine Total 550 ml # Voids 4 # Bowel Movements 1 Laboratory Tests Test 12/26/19 01:49 Stool Occult Blood Negative (NEGATIVE) Microbiology Date/Time Source Procedure Growth Status 12/23/19 22:45 Rectum - Final NO CARBAPENEM-RESISTANT ENTEROBACTERI... Complete 12/23/19 22:45 Rectum VRE Culture - Final NO VANCOMYCIN RESISTANT ENTEROCOCCUS ... Complete Objective HEAD AND NECK: No JVD. LUNGS: Clear. CARDIOVASCULAR: Irregular S1 and S2 with no gallop. ABDOMEN: Soft. EXTREMITIES: 1+ pitting edema. Juan Carlos Orosco MD Dec 26, 2019 11:16
--- NOTE | 2019-12-26 11:42 | NUR ---
NURSE NOTES: DR THOMPSON CALLED AND RECEIVED AN ORDER TO DC PT TO HOME WITH HOME HEALTH, CM MADE AWARE.
[2019-12-26 12:00] VITALS: BP 108/65
--- NOTE | 2019-12-26 12:41 | NUR ---
*-*DISCHARGE PLANNING*-* PATIENT HAS BEEN ACCEPTED WITH: [facility] P: [phone] S/W MIO MG SERVICE MARY UPON DISCHARGE.
--- NOTE | 2019-12-26 14:00 | NUR ---
NURSE NOTES: PATIENT IS DISCHARGED HOME PER MD ORDER. METAL MOCKUP MAKER REMOVED, IV REMOVED, NO BLEEDING, NO INFILTRATION NOTED. PATIENT'S ARM BAND REMOVED AND DISPOSED IN THE PROPER DISPOSAL. DISCUSSED DISCHARGE PLANS AND EDUCATED PATIENT ON MEDICATION UPON DISCHARGE. ALL DISCHARGE PROTOCOLS FOLLOWED AND CARRIED OUT. PATIENT REFUSED TO SIGN DISCHARGE PAPERS, WITNESSED BY ANOTHER RN. ALL BELONGINGS ACCOUNTED FOR , SIGNED BY BOTH NURSES, PATIENT REFUSED TO SIGN AND STATES " I HAVE ALL MY BELONGINGS." PATIENT WAS TAKEN DOWN WITH WHEELCHAIR AND LEFT WITH HIS OWN PRIVATE VEHICLE.
--- NOTE | 2019-12-26 14:19 | Nephrology Progress Note ---
Assessment/Plan Problem List: (1) Electrolyte imbalance (2) UTI (urinary tract infection) (3) Proteinuria Assessment 74-year-old male presents with chest pain and suprapubic pain Hypokalemia Cystitis, possible UTI Possible colonic spasm Fatty liver Coronary artery disease, valvular heart disease History of CVA with left weakness Plan December 25: No chemistry panel done today. RN complains as the patient is seeking pain medication every 2 hours [id number]. Will order a chemistry panel tomorrow. Previously ordered urine culture could not be located. Urine culture ordered. Previously: Potassium supplement Monitor renal parameters and electrolytes Continue per consultants Will start on Flomax Will obtain urine for culture and sensitivity Subjective ROS Limited/Unobtainable: No Constitutional: Reports: malaise Objective Objective Last 24 Hour Vital Signs Date Time Temp Pulse Resp B/P (MAP) Pulse Ox O2 Delivery O2 Flow Rate FiO2 12/26/19 12:00 71 12/26/19 12:00 98.1 71 20 108/65 (79) 96 12/26/19 09:00 Room Air 12/26/19 08:13 70 132/77 12/26/19 08:00 79 12/26/19 08:00 97.9 79 20 132/77 (95) 95 12/26/19 04:00 74 12/26/19 04:00 98.4 92 18 124/67 (86) 97 12/26/19 00:00 72 12/26/19 00:00 98.8 81 17 132/82 (99) 96 12/25/19 21:00 Room Air 12/25/19 20:00 80 12/25/19 20:00 98.2 70 18 117/55 (75) 97 12/25/19 17:09 100 139/91 12/25/19 16:00 99.1 100 18 139/91 (107) 97 12/25/19 15:34 96 Intake and Output 12/25/19 12/26/19 19:00 07:00 Intake Total 600 ml 500 ml Output Total 550 ml Balance 50 ml 500 ml IV Total 600 ml 500 ml Output Urine Total 550 ml # Voids 4 # Bowel Movements 1 No chemistry panel done today laboratory Tests 12/26/19 01:49: Stool Occult Blood Negative Height (Feet): 6 Height (Inches): 0.00 Weight (Pounds): 250 General Appearance: no apparent distress, lethargic Cardiovascular: normal rate Respiratory/Chest: lungs clear Abdomen: soft, other - Obese Objective No change Jose Gracia MD Dec 26, 2019 14:19
--- NOTE | 2019-12-26 16:34 | General Progress Note ---
Subjective Allergies: Coded Allergies: MORPHINE (Verified Allergy, Severe, 11/07/10) NITROGLYCERIN (Verified Allergy, Severe, 11/07/10) KETOROLAC (Unverified Allergy, Intermediate, 03/14/14) FISH CONTAINING PRODUCTS (Verified Allergy, Mild, 07/20/14) per patient, "it knocks me out" ACETAMINOPHEN (Unverified Allergy, Unknown, 07/19/14) CODEINE (Unverified Allergy, Unknown, 11/03/13) UNKNOWN DIPHENHYDRAMINE (Unverified Allergy, Unknown, 09/30/14) IBUPROFEN (Unverified Allergy, Unknown, 11/03/13) UNKNOWN PROCHLORPERAZINE (Unverified Allergy, Unknown, 07/19/14) GABAPENTIN (Verified Adverse Reaction, Intermediate, 07/20/14) Per patient, it makes him sweat, throws up, and "blacks out" Uncoded Allergies: IV contrast (Allergy, Unknown, 11/30/19) Subjective appears comfortable, looking at his cell phone on my arrival feeling better Objective Last 24 Hour Vital Signs Date Time Temp Pulse Resp B/P (MAP) Pulse Ox O2 Delivery O2 Flow Rate FiO2 12/26/19 12:00 71 12/26/19 12:00 98.1 71 20 108/65 (79) 96 12/26/19 09:00 Room Air 12/26/19 08:13 70 132/77 12/26/19 08:00 79 12/26/19 08:00 97.9 79 20 132/77 (95) 95 12/26/19 04:00 74 12/26/19 04:00 98.4 92 18 124/67 (86) 97 12/26/19 00:00 72 12/26/19 00:00 98.8 81 17 132/82 (99) 96 12/25/19 21:00 Room Air 12/25/19 20:00 80 12/25/19 20:00 98.2 70 18 117/55 (75) 97 12/25/19 17:09 100 139/91 Intake and Output 12/25/19 12/26/19 19:00 07:00 Intake Total 600 ml 500 ml Output Total 550 ml Balance 50 ml 500 ml IV Total 600 ml 500 ml Output Urine Total 550 ml # Voids 4 # Bowel Movements 1 Laboratory Tests 12/26/19 01:49: Stool Occult Blood Negative Height (Feet): 6 Height (Inches): 0.00 Weight (Pounds): 250 Objective WDWN man NCAT, appears comfortable CTA RR Abd soft, lower abd TTP no edema Assessment/Plan Assessment/Plan: Assessment - suprapubic abd pain, ? etiology - ? rectal blood (patient did not see) - Abnormal LFT, not new - possible Fatty liver - CAD - valvular heart disease - h/o CVA with (L) weakness - CP Recommendations - check lactate - normal - check OB - pending BM - laxative - serial exam - pain control Chris Murphy MD Dec 26, 2019 16:34
--- NOTE | 2019-12-27 00:12 | Psych Consult Progress Note ---
Psychiatry Progress Note Psychiatry Progress Note Neurological/Psychiatric: Reports: anxiety, depressed, emotional problems Allergies: Coded Allergies: MORPHINE (Verified Allergy, Severe, 11/07/10) NITROGLYCERIN (Verified Allergy, Severe, 11/07/10) KETOROLAC (Unverified Allergy, Intermediate, 03/14/14) FISH CONTAINING PRODUCTS (Verified Allergy, Mild, 07/20/14) per patient, "it knocks me out" ACETAMINOPHEN (Unverified Allergy, Unknown, 07/19/14) CODEINE (Unverified Allergy, Unknown, 11/03/13) UNKNOWN DIPHENHYDRAMINE (Unverified Allergy, Unknown, 09/30/14) IBUPROFEN (Unverified Allergy, Unknown, 11/03/13) UNKNOWN PROCHLORPERAZINE (Unverified Allergy, Unknown, 07/19/14) GABAPENTIN (Verified Adverse Reaction, Intermediate, 07/20/14) Per patient, it makes him sweat, throws up, and "blacks out" Uncoded Allergies: IV contrast (Allergy, Unknown, 11/30/19) Objective Data Height (Feet): 6 Height (Inches): 0.00 Weight (Pounds): 250 General Appearance: no apparent distress, lethargic Behavior Mannerisms: good eye contact Mental Status Exam - Affect: constricted Additional Comments: patient is alert and oriented times self, place, and situation. Mood is anxious. Affect is blunted, congruent with mood. Thought process is concrete. Thought content, no suicidal or homicidal ideation. Cognition is impaired. Insight and judgment are impaired Assessment/Plan Assessment/Plan: ASSESSMENT: Slick I Anxiety disorder. Slick II Deferred. Slick III As above. Slick IV Low. Slick V 20 PLAN: 1. We will do Ativan p.r.n. 2. Provide the patient with reality orientation and supportive therapy. Marko Smith MD Dec 27, 2019 00:12
--- NOTE | 2019-12-28 09:12 | Discharge Summary ---
Discharge Summary Discharge Summary _ DATE OF ADMISSION: 12/23/2019 DATE OF DISCHARGE: 12/26/2019 DISCHARGED BY: Dr. Dangelo REASON FOR ADMISSION: 74 years old male with past medical history of coronary artery disease, paroxysmal atrial fibrillation, s/p ablation, thoracic aneurysm, aortic valve repair, presented for evaluation due to chest and abdominal pain. Symptoms started last night. Patient reported chest tightness and pressure without radiation , associated with a mild shortness of breath. He also reported left lower quadrant/suprapubic abdominal pain and bright red blood per rectum last night. Patient reported episodes like this in the past. He denied fever, chills or cough. Patient was taking Eliquis. Upon evaluation vital signs were stable. Laboratory work-up revealed no leukocytosis, hemoglobin 14.7 , hematocrit 43.6. INR 1.0. Potassium 3.0. Stable electrolytes , glucose 166. AST 87 , ALT 100 , lipase 382. Troponin 0.004, pro BNP 97. EKG revealed atrial fibrillation with controlled ventricular response. Chest x-ray revealed no acute cardiopulmonary pathology. CT scan of the abdomen and pelvis demonstrated moderate colonic stool , which may be ileus/constipation. No mechanical bowel obstruction. No diverticulitis. In the emergency department patient received IV fluids; potassium was replaced , analgesic provided . Patient subsequently admitted to telemetry floor for further management. CONSULTANTS: elevated work platform operator Dr. Strickland GI specialist Dr. Murphy pain specialist Dr. Linn urologist Dr. Olivas doctor of optometry Dr. Gracia psychiatrist Dr. Smith [facility] COURSE: Patient admitted to telemetry floor. EKG revealed no acute ischemic changes, serial troponin negative. Patient was ruled out for acute myocardial infarction. Echocardiogram revealed ejection fraction of 50%. Patient declined stress test as offered by elevated work platform operator. Patient has a history of paroxysmal atrial fibrillation , status post ablation 2017 . Heart rate was controlled with beta-fanny . Eliquis was stopped due to possible bleeding. Patient spontaneously converted to sinus rhythm. Patient remained hemodynamically stable. GI specialist followed. Stool for OB was negative. Bowel regimen instituted. GI prophylaxis provided. Serial abdominal exams were stable. Lactic acid was stable. Elevated LFT were not new, likely due to fatty liver. LFT remained at the same range as before. Continue monitoring as outpatient. Hemoglobin and hematocrit remained stable , no further episodes of the rectal bleeding. Prior to discharge hemoglobin 14.4 , hematocrit 41.9. Renal parameters and electrolytes were closely monitored. Potassium was replaced. Nephrotoxic's were avoided. Patient started on Flomax. Urinalysis revealed +2 protein , but no evidence of urinary tract infection. Renal ultrasound revealed no evidence of hydronephrosis. Left renal cyst previously reported as well. Urologist seen and evaluated patient. Scrotal exam was normal. UA with no evidence of UTI. Renal ultrasound stable. No further management from the urology standpoint was needed. Pain management was addressed as per pain specialist recommendation. Psychiatrist evaluated patient and diagnosed with anxiety disorder. Reality orientation and supportive therapy provided. Anxiolytic were on board as needed. Patient clinically stabilized and was ready for discharge home with home health services . FINAL DIAGNOSES: Chest pain in patient with a coronary artery disease Anxiety disorder Hypokalemia Probably episode of rectal bleeding Suprapubic abdominal pain of unclear etiology, possible colonic spasm Paroxysmal atrial fibrillation , status post ablation 2017 Status post bioprosthetic aortic valve replacement Status post aortic aneurysm repair Elevated liver enzymes, probably due to fatty liver ( not new) History of CVA with left-sided weakness Hemiplegia , flaccid nondominant side Lumbar postlaminectomy syndrome Osteoarthritis of knee with history of total knee replacement Thalamic pain syndrome DISCHARGE MEDICATIONS: See Medication Reconciliation list. DISCHARGE INSTRUCTIONS: Patient was discharged home with home health services. Follow up with primary care provider in one week. I have been assigned to dictate discharge summary for this account. I was not involved in the patient's management. Mable Nicole NP Dec 28, 2019 09:12
== END 2019-12-26 13:34 | disposition home health service (06) | DRG 641 ==
LOC: EMR 17:35 → 2E 18:37 → EDBEDREQ 21:31
DX: E87.6 Hypokalemia (principal); N39.0 Urinary tract infection, site not specified; K62.5 Hemorrhage of anus and rectum; I69.354 Hemiplegia and hemiparesis following cerebral infarction affecting left non-dominant side; K56.7 Ileus, unspecified; R07.9 Chest pain, unspecified; I48.0 Paroxysmal atrial fibrillation; I25.10 Atherosclerotic heart disease of native coronary artery without angina pectoris; R07.89 Other chest pain; F32.9 Major depressive disorder, single episode, unspecified; Z88.6 Allergy status to analgesic agent; Z88.8 Allergy status to other drugs, medicaments and biological substances; Z79.01 Long term (current) use of anticoagulants; G89.4 Chronic pain syndrome; K76.0 Fatty (change of) liver, not elsewhere classified; Z96.659 Presence of unspecified artificial knee joint; G89.0 Central pain syndrome; F41.9 Anxiety disorder, unspecified; D64.9 Anemia, unspecified
CPT/HCPCS: 36415; 71045; 74176; 76770; 80053; 80061; 81001; 82248; 82270; 82977; 83036; 83605; 83690; 83735; 83880; 84100; 84443; 84484; 84550; 85025; 85610; 85730; 86140; 86850; 86900; 86901; 87081; 93005; 93306; 96361; 96374; 96376; 99285; J7030; J8499

== ENCOUNTER 2019-12-29 01:45 | Inpatient (IN) | payer MEDICARE, MEDICAID ==
[~2019-12-29] VITALS: Ht 185.4 cm; Wt 123.3 kg
--- NOTE | 2019-12-29 02:15 | Emergency Room Report ---
History of Present Illness General Chief Complaint: Chest Pain Source: Patient Present Illness HPI Disclaimer: Please note that this report is being documented using DRAGON technology. This can lead to erroneous entry secondary to incorrect interpretation by the dictating instrument. HPI: 74-year-old male history of CAD, atrial fibrillation on Eliquis, thoracic aneurysm status post repair, CVA, status post mitral valve replacement presents for evaluation of chest pain and palpitations. He reports palpitations starting yesterday morning. He reports a rapid and then slow heartbeat throughout the day today. Palpitations increase last night. He reports some left-sided chest tightness. Pain does not radiate. Denies shortness of breath, loss of consciousness, nausea, vomiting or diaphoresis. States he was told by his closet organizer to return to the ED for admission. Recently admitted to the hospital for ileus. Troponins were negative during previous visit and the patient refused stress test. Currently denies abdominal pain, nausea, vomiting, fever, chills, cough or other changes in his health. PMH: CAD, thoracic aneurysm, CVA, atrial fibrillation PSH: Mitral valve repair, thoracic aneurysm repair Allergies: Codeine, morphine, fish products, gabapentin, Tylenol, Toradol, Benadryl, IV contrast Social Hx: Reviewed Allergies: Coded Allergies: MORPHINE (Verified Allergy, Severe, 11/07/10) NITROGLYCERIN (Verified Allergy, Severe, 11/07/10) KETOROLAC (Unverified Allergy, Intermediate, 03/14/14) FISH CONTAINING PRODUCTS (Verified Allergy, Mild, 07/20/14) per patient, "it knocks me out" ACETAMINOPHEN (Unverified Allergy, Unknown, 07/19/14) CODEINE (Unverified Allergy, Unknown, 11/03/13) UNKNOWN DIPHENHYDRAMINE (Unverified Allergy, Unknown, 09/30/14) IBUPROFEN (Unverified Allergy, Unknown, 11/03/13) UNKNOWN PROCHLORPERAZINE (Unverified Allergy, Unknown, 07/19/14) GABAPENTIN (Verified Adverse Reaction, Intermediate, 07/20/14) Per patient, it makes him sweat, throws up, and "blacks out" Uncoded Allergies: IV contrast (Allergy, Unknown, 11/30/19) COVID-19 Screening Contact w/high risk pt: No Experienced COVID-19 symptoms?: No 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-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 COVID-19 Screening: Negative COVID-19 COVID-19 Testing Source: nasal Nursing Documentation-PMH Hx Cardiac Problems: Yes Hx Hypertension: Yes Hx Pacemaker: No Hx Asthma: No Hx COPD: No Hx Diabetes: Yes Hx Cancer: No Hx Gastrointestinal Problems: No Hx Dialysis: No Hx Neurological Problems: Yes Hx Cerebrovascular Accident: Yes Hx Transient Ischemic Attacks: Yes Hx Dementia: No Hx Alzheimer's Disease: No Hx Parkinson's Disease: No Hx Meningitis: No Hx Encephalitis: Yes Hx Seizures: No Hx Epilepsy: No Hx Multiple Sclerosis: No Hx Cerebral Palsy: No Hx Amyotrophic Lat Sclerosis: No Hx Guillian-Gays Syndrome: No Hx Paralysis: No Hx Peripheral Neuropathy: No Hx Spinal Cord Injury: No Hx Head Trauma: No Hx Traumatic Brain Injury: No Hx Memory Loss: No Hx Concentration Difficulty: No Hx Speech Problem: No Hx Tremors: No Hx Vertigo: No Hx Dizziness: No Hx Syncope: No Hx Headaches: No Hx Aphasia: No Hx Dysphasia: No Hx Numbness: No Hx Weakness: No Hx Fatigue: Yes Hx Neurologic Surgery: No Hx Brain Shunt: No Review of Systems All Other Systems: negative except mentioned in HPI Physical Exam Vital Signs Date Time Temp Pulse Resp B/P (MAP) Pulse Ox O2 Delivery O2 Flow Rate FiO2 12/29/19 01:52 97.5 88 18 140/110 (120) 99 Room Air General: Awake and alert, no acute distress HEENT: NC/AT. EOMI. Cardiovascular: Irregularly irregular rhythm with tachycardic rate. Loud S2. Resp: Normal work of breathing. No cough, wheezing or crackles appreciated Abdomen: Abdomen is soft, nondistended. Nontender Skin: Intact. No abrasions, laceration or rash over the exposed skin MSK: Normal tone and bulk. Moving all extremities. No obvious deformity. Neuro: Awake and alert. Mentating appropriately. Procedures Critical Care Time Critical Care Time Total critical care time: Approximately 45 minutes Due to a high probability of clinically significant, life threatening deterioration, the patient required the highest level of preparedness to intervene emergently and I personally spent this critical care time directly and personally managing the patient. This critical care time included obtaining a history, examining the patient, pulse oximetry, ordering and reviewing studies, ordering treatments, evaluating response to treatment and updating management plan as needed, frequent reassessment and discussion with other providers as well as arranging for ultimate disposition. This critical to care time was performed to assess and manage the high probability of life-threatening deterioration that could result in multiorgan failure. This critical care time is separate from the separately billable procedures and treating other patients. Medical Decision Making Diagnostic Impression: Primary Impression: Rapid atrial fibrillation Additional Impression: Chest pain ER Course 74-year-old male presenting for evaluation of palpitations and chest discomfort beginning last night. Differential includes not limited to palpitations, atrial fibrillation, ACS, angina, musculoskeletal chest pain, GERD, pneumothorax, pneumonia among others. Discharge summary showed patient had converted to normal rhythm. He arrives rapid atrial fibrillation with rate fluctuating between 120-130 bpm. IV Cardizem given with good response. Will load with oral Cardizem. Troponin negative. Other labs within normal limits. CT head was performed given the patient's prior history of stroke and his anticoagulant use. No bleed or significant change from previous scans identified. Patient is complaining of chest pain and headache. He refused aspirin, nitroglycerin, nitroglycerin ointment, Tylenol, Toradol claiming allergies to all. Also noted in his allergy list is codeine, gabapentin, ibuprofen among others. Review of cures report shows multiple medications for [place] 10 mg tablets as well as tramadol. Patient states he is not allergic to Tylenol when it is mixed with hydrocodone. He is asking for Dilaudid. I have concern regarding the patient's current pain medications and believe he would benefit from pain management consult. Can be done on an inpatient basis. Unable to reach PMD regarding admission. The patient will be admitted to Dr. Roy as he is the prior admitting physician. Laboratory Tests Test 12/29/19 02:10 White Blood Count 7.3 K/UL (4.8-10.8) Red Blood Count 5.04 M/UL (4.70-6.10) Hemoglobin 15.2 G/DL (14.2-18.0) Hematocrit 43.3 % (42.0-52.0) Mean Corpuscular Volume 86 FL (80-99) Mean Corpuscular Hemoglobin 30.2 PG (27.0-31.0) Mean Corpuscular Hemoglobin Concent 35.1 G/DL (32.0-36.0) Red Cell Distribution Width 11.9 % (11.6-14.8) Platelet Count 137 K/UL (150-450) L Mean Platelet Volume 11.1 FL (6.5-10.1) H Neutrophils (%) (Auto) 45.7 % (45.0-75.0) Lymphocytes (%) (Auto) 36.7 % (20.0-45.0) Monocytes (%) (Auto) 10.7 % (1.0-10.0) H Eosinophils (%) (Auto) 3.4 % (0.0-3.0) H Basophils (%) (Auto) 3.5 % (0.0-2.0) H Prothrombin Time 12.2 SEC (9.30-11.50) H Prothrombin Time INR 1.1 (0.9-1.1) Activated Partial Thromboplast Time 25 SEC (23-33) Sodium Level 139 MMOL/L (136-145) Potassium Level 3.8 MMOL/L (3.5-5.1) Chloride Level 104 MMOL/L (98-107) Carbon Dioxide Level 24 MMOL/L (21-32) Anion Gap 11 mmol/L (5-15) Blood Urea Nitrogen 8 mg/dL (7-18) Creatinine 1.3 MG/DL (0.55-1.30) Estimated Glomerular Filtration Rate > 60 mL/min (>60) Glucose Level 171 MG/DL (74-106) H Calcium Level 9.3 MG/DL (8.5-10.1) Total Bilirubin 1.4 MG/DL (0.2-1.0) H Direct Bilirubin 0.2 MG/DL (0.0-0.3) Aspartate Amino Transferase (AST) 61 U/L (15-37) H Alanine Aminotransferase (ALT) 51 U/L (12-78) Alkaline Phosphatase 98 U/L (46-116) Troponin I 0.008 ng/mL (0.000-0.056) Pro-B-Type Natriuretic Peptide 142 pg/mL (0-125) H Total Protein 6.9 G/DL (6.4-8.2) Albumin 3.5 G/DL (3.4-5.0) Globulin 3.4 g/dL Albumin/Globulin Ratio 1.0 (1.0-2.7) EKG Diagnostic Results Troponin ordered: Yes When was troponin ordered?: Dec 29, 2019 EKG Time: 02:13 Rate: tachycardiac Other Impression Irregularly irregular rhythm with tachycardic rate consistent with rapid atrial fibrillation Rhythm Strip Diag. Results Rhythm Strip Time: 02:12 EP Interpretation: yes Rate: 115 Rhythm: other - Atrial fibrillation Chest X-Ray Diagnostic Results Chest X-Ray Diagnostic Results : Chest X-Ray Ordered: Yes # of Views/Limited/Complete: 1 View Indication: Chest Pain Interpretation: other - Enlarged cardiac silhouette with evidence of prior sternotomy and aortic arch repair Impression: Other - Unchanged from previous Electronically Signed by: Electronically signed by Dr. Orlando Powell CT/MRI/US Diagnostic Results CT/MRI/US Diagnostic Results : Impression Final Report EXAM: CT Head Without Intravenous Contrast CLINICAL HISTORY: H/A TECHNIQUE: Axial computed tomography images of the head/brain without intravenous contrast. CTDI is 53.4 mGy and DLP is 1179.1 mGy-cm. One or more of the following dose reduction techniques were used: automated exposure control, adjustment of the mA and/or kV according to patient size, use of iterative reconstruction technique. COMPARISON: 12/04/2019 FINDINGS: Brain: Parenchymal volume loss. Nonspecific white matter hypoattenuation likely secondary to chronic microvascular ischemia. Cerebrovascular ASVD. Multifocal tiny high right frontal and parietal encephalomalacia. No hemorrhage. Ventricles: Unremarkable. No ventriculomegaly. Bones/joints: Unremarkable. No acute fracture. Soft tissues: Unremarkable. Sinuses: Unremarkable as visualized. No acute sinusitis. Mastoid air cells: Unremarkable as visualized. No mastoid effusion. IMPRESSION: 1. No acute intracranial abnormality. 2. Mild chronic senescent findings above. 3. Tiny old right sided encephalomalacia. Radiologist: Rich Welsh MD Electronically Signed: 12/29/19 03:55 Study ready at 03:50 and initial results transmitted at 03:55 Last Vital Signs Date Time Temp Pulse Resp B/P (MAP) Pulse Ox O2 Delivery O2 Flow Rate FiO2 12/29/19 01:52 97.5 88 18 140/110 (120) 99 Room Air Disposition: ADMITTED INPATIENT Condition: Stable Referrals: Karyna Wheatley MD (PCP) Orlando Powell MD Dec 29, 2019 02:14
[2019-12-29 02:16] LABS: BASOPHILS % (AUTO) 3.5 % (0.0-2.0); EOSINOPHILS % (AUTO) 3.4 % (0.0-3.0); HEMATOCRIT 43.3 % (42.0-52.0); HEMOGLOBIN 15.2 G/DL (14.2-18.0); LYMPHOCYTES % (AUTO) 36.7 % (20.0-45.0); MEAN CORPUSCULAR VOLUME 86 FL (80-99); MONOCYTES % (AUTO) 10.7 % (1.0-10.0); NEUTROPHILS % (AUTO) 45.7 % (45.0-75.0); PLATELET COUNT 137 K/UL (150-450); RED BLOOD COUNT 5.04 M/UL (4.70-6.10); RED CELL DISTRIBUTION WIDTH 11.9 % (11.6-14.8); WHITE BLOOD COUNT 7.3 K/UL (4.8-10.8)
[2019-12-29 02:28] LABS: ANION GAP 11 mmol/L (5-15); BLOOD UREA NITROGEN 8 mg/dL (7-18); CALCIUM 9.3 MG/DL (8.5-10.1); CARBON DIOXIDE 24 MMOL/L (21-32); CHLORIDE 104 MMOL/L (98-107); CREATININE 1.3 MG/DL (0.55-1.30); POTASSIUM 3.8 MMOL/L (3.5-5.1); SODIUM 139 MMOL/L (136-145)
[2019-12-29 02:29] LABS: INR 1.1 (0.9-1.1)
[2019-12-29] MEDS ORDERED: dilTIAZem HCl 25mg/5ml Inj IVP ONE (02:30)
[2019-12-29] MEDS: Nitroglycerin 2% oint pkt TOPIC ONE ×2 (02:31→02:37)
[2019-12-29 02:40] LABS: ALANINE AMINOTRANSFERASE 51 U/L (12-78); ALBUMIN 3.5 G/DL (3.4-5.0); ALKALINE PHOSPHATASE 98 U/L (46-116); ASPARTATE AMINO TRANSFERASE 61 U/L (15-37); BILIRUBIN,TOTAL 1.4 MG/DL (0.2-1.0)
[2019-12-29] MEDS ORDERED: HYDROcodone/Acetamin 5/325 tab ORAL ONE (02:45)
[2019-12-29 02:53] LABS: BILIRUBIN,DIRECT 0.2 MG/DL (0.0-0.3)
[2019-12-29 02:54] VITALS: BP 140/110
[2019-12-29] MEDS ORDERED: HYDROcodone/Acetamin 5/325 tab ORAL PRN (03:00)
[2019-12-29] MEDS ORDERED: dilTIAZem HCl 60mg tab ORAL ONE (03:00)
--- NOTE | 2019-12-29 03:57 | Diagnostic Imaging Report ---
EXAM: CT Head Without Intravenous Contrast CLINICAL HISTORY: H/A TECHNIQUE: Axial computed tomography images of the head/brain without intravenous contrast. CTDI is 53.4 mGy and DLP is 1179.1 mGy-cm. One or more of the following dose reduction techniques were used: automated exposure control, adjustment of the mA and/or kV according to patient size, use of iterative reconstruction technique. COMPARISON: 12/04/2019 FINDINGS: Brain: Parenchymal volume loss. Nonspecific white matter hypoattenuation likely secondary to chronic microvascular ischemia. Cerebrovascular ASVD. Multifocal tiny high right frontal and parietal encephalomalacia. No hemorrhage. Ventricles: Unremarkable. No ventriculomegaly. Bones/joints: Unremarkable. No acute fracture. Soft tissues: Unremarkable. Sinuses: Unremarkable as visualized. No acute sinusitis. Mastoid air cells: Unremarkable as visualized. No mastoid effusion. IMPRESSION: 1. No acute intracranial abnormality. 2. Mild chronic senescent findings above. 3. Tiny old right sided encephalomalacia.
[2019-12-29] MEDS ORDERED: Hydromorphone 0.5mg/0.5ml inj SUBQ PRN (04:15)
[2019-12-29 08:00] VITALS: BP 139/95
[2019-12-29] MEDS ORDERED: HYDROmorphone 1mg/ml Carpuject IVP PRN (09:00)
--- NOTE | 2019-12-29 09:23 | General Progress Note ---
Subjective Date patient seen: Dec 29, 2019 Time patient seen: 08:45 - am Allergies: Coded Allergies: MORPHINE (Verified Allergy, Severe, 11/07/10) NITROGLYCERIN (Verified Allergy, Severe, 11/07/10) KETOROLAC (Unverified Allergy, Intermediate, 03/14/14) FISH CONTAINING PRODUCTS (Verified Allergy, Mild, 07/20/14) per patient, "it knocks me out" ACETAMINOPHEN (Unverified Allergy, Unknown, 07/19/14) CODEINE (Unverified Allergy, Unknown, 11/03/13) UNKNOWN DIPHENHYDRAMINE (Unverified Allergy, Unknown, 09/30/14) IBUPROFEN (Unverified Allergy, Unknown, 11/03/13) UNKNOWN PROCHLORPERAZINE (Unverified Allergy, Unknown, 07/19/14) GABAPENTIN (Verified Adverse Reaction, Intermediate, 07/20/14) Per patient, it makes him sweat, throws up, and "blacks out" Uncoded Allergies: IV contrast (Allergy, Unknown, 11/30/19) Subjective Constitutional: Denies: no symptoms, chills, diaphoresis, fever, malaise, weakness, other HEENT: Denies: no symptoms, eye pain, blurred vision, tearing, double vision, ear pain, ear discharge, nose pain, nose congestion, throat pain, throat swelling, mouth pain, mouth swelling, other Cardiovascular: Denies: no symptoms, chest pain, edema, irregular heart rate, lightheadedness, palpitations, syncope, other Respiratory: Denies: no symptoms, cough, orthopnea, shortness of breath, SOB with excertion, SOB at rest, sputum, stridor, wheezing, other Gastrointestinal/Abdominal: Denies: no symptoms, abdomen distended, abdominal pain, black stools, tarry stools, blood in stool, constipated, diarrhea, dif ficulty swallowing, nausea, poor appetite, poor fluid intake, rectal bleeding, vomiting, other Genitourinary: Denies: no symptoms, burning, discharge, frequency, flank pain, hematuria, incontinence, pain, urgency, other Neurologic/Psychiatric: Denies: no symptoms, anxiety, depressed, emotional problems, headache, numbness, paresthesia, pre-existing deficit, seizure, tingling, tremors, weakness, other Endocrine: Denies: no symptoms, excessive sweating, flushing, intolerance to cold, intolerance to heat, increased hunger, increased thirst, increased urine, unexplained weight gain, unexplained weight loss, other Hematologic/Lymphatic: Denies: no symptoms, anemia, easy bleeding, easy bruising, other This is a 74 y/o male [place] [facility] [place] is a known patient from previous hospital admissions and is not admitted due to A-fib will be seen by vice president network development. He continues to c/o severe pain and was started on Combs with minimal relief due to this we were consulted so patient has adequate pain control while here in the hospital. Objective Last 24 Hour Vital Signs Date Time Temp Pulse Resp B/P (MAP) Pulse Ox O2 Delivery O2 Flow Rate FiO2 12/29/19 08:00 96.8 76 18 139/95 (110) 96 12/29/19 08:00 82 12/29/19 04:37 Room Air 12/29/19 04:00 98.0 112 18 138/108 100 Room Air 12/29/19 03:00 97.5 12/29/19 02:54 122 18 Room Air 12/29/19 02:54 97.5 122 18 140/110 99 Room Air 12/29/19 02:37 140/110 12/29/19 02:31 122 140/110 12/29/19 01:52 97.5 88 18 140/110 (120) 99 Room Air Intake and Output 12/28/19 12/29/19 19:00 07:00 Intake Total 720 ml Balance 720 ml Intake Oral 720 ml # Voids 2 # Bowel Movements 1 Laboratory Tests 12/29/19 02:10: White Blood Count 7.3, Red Blood Count 5.04, Hemoglobin 15.2, Hematocrit 43.3, Mean Corpuscular Volume 86, Mean Corpuscular Hemoglobin 30.2, Mean Corpuscular Hemoglobin Concent 35.1, Red Cell Distribution Width 11.9, Platelet Count 137L, Mean Platelet Volume 11.1H, Neutrophils (%) (Auto) 45.7, Lymphocytes (%) (Auto) 36.7, Monocytes (%) (Auto) 10.7H, Eosinophils (%) (Auto) 3.4H, Basophils (%) (Auto) 3.5H, Prothrombin Time 12.2H, Prothromb Time International Ratio 1.1, Activated Partial Thromboplast Time 25, Sodium Level 139, Potassium Level 3.8, Chloride Level 104, Carbon Dioxide Level 24, Anion Gap 11, Blood Urea Nitrogen 8, Creatinine 1.3, Estimat Glomerular Filtration Rate > 60, Glucose Level 171H, Calcium Level 9.3, Total Bilirubin 1.4H, Direct Bilirubin 0.2, Aspartate Amino Transf (AST/SGOT) 61H, Alanine Aminotransferase (ALT/SGPT) 51, Alkaline Phosphatase 98, Troponin I 0.008, Pro-B-Type Natriuretic Peptide 142H, Total Protein 6.9, Albumin 3.5, Globulin 3.4, Albumin/Globulin Ratio 1.0 12/29/19 03:43: Urine Opiates Screen Negative, Urine Barbiturates Screen Negative, Phencyclidine (PCP) Screen Negative, Urine Amphetamines Screen Negative, Urine Benzodiazepines Screen Negative, Urine Cocaine Screen Negative, Urine Marijuana (THC) Screen Negative Height (Feet): 6 Height (Inches): 1.00 Weight (Pounds): 266 Objective General Appearance: no apparent distress, alert EENT: PERRL/EOMI, TMs normal Neck: non-tender, normal alignment, supple Cardiovascular: normal rate, regular rhythm Respiratory/Chest: chest wall non-tender, lungs clear Abdomen: non tender, soft Extremities: non-tender Edema: no edema noted Arm (L), no edema noted Arm (R), no edema noted Leg (L), no edema noted Leg (R), no edema noted Pedal (L), no edema noted Pedal (R), no edema noted Generalized Neurologic: alert, oriented x 3 Skin: normal pigmentation Assessment/Plan Assessment/Plan: (1) Hemiplegia, flaccid, nondominant side (2) Lumbar post-laminectomy syndrome (3) HO TKR (total knee replacement) (4) OA (osteoarthritis) of knee (5) Thalamic pain syndrome (6) CVA (cerebral vascular accident) We will start patient on Dilaudid 1mg IV Q3H PRN and continue Combs P/w Dr. Linn and Dr. Linn concurred. Fabiano Loza Dec 29, 2019 09:23
[2019-12-29] MEDS: Eliquis 5mg tablet ORAL SCH ×2 (09:46→18:04)
[2019-12-29] MEDS: HYDROmorphone 1mg/ml Carpuject IVP PRN ×5 (09:47→22:50)
--- NOTE | 2019-12-29 10:45 | Consultation ---
DATE OF CONSULTATION: 12/29/2019 PULMONARY CONSULTATION CONSULTING PHYSICIAN: Marino Art MD. HISTORY OF PRESENT ILLNESS: This is a 74-year-old male with a history of chronic atrial fibrillation on Eliquis, also with history of thoracic aneurysm previously repaired, history of CVA as well as mitral valve replacement, who came to the hospital with chest pain and palpitations. He has been seen overnight by Pain Management and medications have been adjusted. He reports that he has left-sided chest pain and palpitations. There is no shortness of breath, cough, or hemoptysis. The patient in the past has refused a stress test. PAST MEDICAL HISTORY: CAD, atrial fibrillation, thoracic aneurysm, and previous CVA. PREVIOUS SURGERIES: Mitral valve repair and thoracic aneurysm repair. ALLERGIES: Multiple include codeine, morphine, fish products, Neurontin, Tylenol, Toradol, , and IV contrast. REVIEW OF SYSTEMS: Denies any headaches, hematemesis, melena, hematochezia, or weight loss. PHYSICAL EXAMINATION: GENERAL: Reveals a 74-year-old obese male. VITAL SIGNS: Blood pressure is 130/90, heart rate 74, respirations 18. O2 saturation is on room air. He is afebrile. HEENT: Unremarkable. LUNGS: Clear breath sounds bilaterally. ABDOMEN: Soft. EXTREMITIES: There is no edema. NEUROLOGICAL: Nonfocal. LABORATORY DATA: Lab testing shows normal CBC and BMP. Troponin is negative. Toxicology, negative. IMAGING STUDIES: Head CT was obtained, which is negative for any acute findings. IMPRESSION: 1. Atypical chest pain. 2. Rule out ACS. 3. History of atrial fibrillation, on Eliquis. 4. Previous CVA. DISCUSSION: Admit to the hospital. Predominant care per Cardiology. Pain Management notes reviewed. Continue medications. We will follow as insurance specialist. No acute pulmonary intervention required. Marino Art M.D. DR: ALKA JOB#: [id number] CC:
[2019-12-29 12:00] VITALS: BP 136/91
--- NOTE | 2019-12-29 13:53 | Cardiac Electrophysiology PN ---
Subjective Subjective [id number] Objective Last 24 Hour Vital Signs Date Time Temp Pulse Resp B/P (MAP) Pulse Ox O2 Delivery O2 Flow Rate FiO2 12/29/19 12:00 98.7 64 20 136/91 (106) 96 12/29/19 12:00 87 12/29/19 10:17 96.8 12/29/19 09:00 Room Air 12/29/19 08:00 96.8 76 18 139/95 (110) 96 12/29/19 08:00 82 12/29/19 04:37 Room Air 12/29/19 04:00 98.0 112 18 138/108 100 Room Air 12/29/19 03:00 97.5 12/29/19 02:54 122 18 Room Air 12/29/19 02:54 97.5 122 18 140/110 99 Room Air 12/29/19 02:37 140/110 12/29/19 02:31 122 140/110 12/29/19 01:52 97.5 88 18 140/110 (120) 99 Room Air Intake and Output 12/28/19 12/29/19 19:00 07:00 Intake Total 720 ml Balance 720 ml Intake Oral 720 ml # Voids 2 # Bowel Movements 1 Laboratory Tests Test 12/29/19 02:10 12/29/19 03:43 White Blood Count 7.3 K/UL (4.8-10.8) Red Blood Count 5.04 M/UL (4.70-6.10) Hemoglobin 15.2 G/DL (14.2-18.0) Hematocrit 43.3 % (42.0-52.0) Mean Corpuscular Volume 86 FL (80-99) Mean Corpuscular Hemoglobin 30.2 PG (27.0-31.0) Mean Corpuscular Hemoglobin Concent 35.1 G/DL (32.0-36.0) Red Cell Distribution Width 11.9 % (11.6-14.8) Platelet Count 137 K/UL (150-450) L Mean Platelet Volume 11.1 FL (6.5-10.1) H Neutrophils (%) (Auto) 45.7 % (45.0-75.0) Lymphocytes (%) (Auto) 36.7 % (20.0-45.0) Monocytes (%) (Auto) 10.7 % (1.0-10.0) H Eosinophils (%) (Auto) 3.4 % (0.0-3.0) H Basophils (%) (Auto) 3.5 % (0.0-2.0) H Prothrombin Time 12.2 SEC (9.30-11.50) H Prothromb Time International Ratio 1.1 (0.9-1.1) Activated Partial Thromboplast Time 25 SEC (23-33) Sodium Level 139 MMOL/L (136-145) Potassium Level 3.8 MMOL/L (3.5-5.1) Chloride Level 104 MMOL/L (98-107) Carbon Dioxide Level 24 MMOL/L (21-32) Anion Gap 11 mmol/L (5-15) Blood Urea Nitrogen 8 mg/dL (7-18) Creatinine 1.3 MG/DL (0.55-1.30) Estimat Glomerular Filtration Rate > 60 mL/min (>60) Glucose Level 171 MG/DL (74-106) H Calcium Level 9.3 MG/DL (8.5-10.1) Total Bilirubin 1.4 MG/DL (0.2-1.0) H Direct Bilirubin 0.2 MG/DL (0.0-0.3) Aspartate Amino Transf (AST/SGOT) 61 U/L (15-37) H Alanine Aminotransferase (ALT/SGPT) 51 U/L (12-78) Alkaline Phosphatase 98 U/L (46-116) Troponin I 0.008 ng/mL (0.000-0.056) Pro-B-Type Natriuretic Peptide 142 pg/mL (0-125) H Total Protein 6.9 G/DL (6.4-8.2) Albumin 3.5 G/DL (3.4-5.0) Globulin 3.4 g/dL Albumin/Globulin Ratio 1.0 (1.0-2.7) Urine Opiates Screen Negative (NEGATIVE) Urine Barbiturates Screen Negative (NEGATIVE) Phencyclidine (PCP) Screen Negative (NEGATIVE) Urine Amphetamines Screen Negative (NEGATIVE) Urine Benzodiazepines Screen Negative (NEGATIVE) Urine Cocaine Screen Negative (NEGATIVE) Urine Marijuana (THC) Screen Negative (NEGATIVE) Juan Carlos Orosco MD Dec 29, 2019 13:53
[2019-12-29 16:00] VITALS: BP 152/93
--- NOTE | 2019-12-29 16:43 | Diagnostic Imaging Report ---
Indication: Chest pain Technique: One view of the chest Comparison: 12/23/2019 Findings: Thoracic aortic endograft again demonstrated. Median sternotomy sutures again demonstrated. There is questionably some hazy opacity at the left lung base, probably an artifact of overlapping soft tissues. There may be some infiltrate. This appears slightly increased from the prior study. Impression: Question developing left basilar infiltrate. Correlate with clinical findings
--- NOTE | 2019-12-29 16:45 | Consultation ---
DATE OF CONSULTATION: 12/29/2019 CARDIOLOGY CONSULTATION CONSULTING PHYSICIAN: Juan Carlos Orosco MD REFERRING PHYSICIAN: Rafaela Roy MD REASON FOR CONSULTATION: Management of atrial fibrillation with rapid ventricular response. HISTORY OF PRESENT ILLNESS: Patient is a 74-year-old gentleman who was just discharged 3 days ago from the hospital was presented to the emergency room with chest pain and palpitation and was found to be in atrial fibrillation with rapid ventricular response. Patient has extensive past medical history including history of bioprosthetic aortic valve replacement in 2004 as well as descending aortic aneurysm repair in 2011 as well as ascending aortic aneurysm repair in January 2013. Patient also has history of nonocclusive coronary artery disease based on CT angiogram in February 2018. Patient has a bioprosthetic aortic valve replacement in 2004 as well as history of atrial fibrillation ablation in February [address] Wheatley. Patient was recently in the hospital and now presented with chest pain, but refused a stress test. As I said, he is allergic to a lot of medications. Patient has also history of CVA and at the time of my evaluation, he is feeling better. REVIEW OF SYSTEMS: Negative other than what was mentioned in the history of present illness. PAST MEDICAL HISTORY: As mentioned above. FAMILY HISTORY: Noncontributory. SOCIAL HISTORY: He has drug-seeking behavior, but denies using illicit drugs. ALLERGIES: He is allergic to multiple medications including Codeine, morphine, fish products, Neurontin, Tylenol, and IV contrast. PHYSICAL EXAMINATION: VITAL SIGNS: Blood pressure 130/70, pulse 75, respirations 18, he is afebrile. HEAD AND NECK: Showed no JVD. LUNGS: Clear. CARDIOVASCULAR: Shows regular S1 and S2 with no gallop or murmur. ABDOMEN: Soft. EXTREMITIES: 1+ pitting edema. LABORATORY AND DIAGNOSTIC DATA: His labs show white count of 7.2, hemoglobin 15.2, hematocrit 43.3, and platelet count is 137. Sodium 139, potassium 3.8, BUN of 8, creatinine of 1.3, and glucose of 171. Urine toxicology is negative. INR is 1.1. His EKG on admission shows sinus tachycardia 115 with incomplete right bundle-branch block and left anterior fascicular block. ASSESSMENT AND PLAN: 1. Paroxysmal atrial fibrillation, status post ablation in 2018 at [facility], currently in sinus rhythm. Patient is on atenolol 50 mg b.i.d. and off anticoagulation. 2. Chest pain. Patient's CT angio at [facility] in 2018 showed noncritical coronary disease and EKG does not show any acute ischemic changes. Patient was ruled out for myocardial infarction with current EF of 50%. Patient refused stress test as he stated he is allergic to lot of medications. 3. Status post bioprosthetic aortic valve replacement in 2004. 4. Status post descending aortic aneurysm repair in June 2011. 5. Aortic root replacement in January 2013. 6. History of anemia secondary to bleeding ascending colon polyp in January 2019. Patient had a CT coronary angiogram obstructive based on CT coronary angio in February 2018. Thank you very much, Dr. Roy, for allowing me to participate in the care of this patient. Please do not hesitate to contact me for any questions regarding my evaluation. The case was discussed with Dr. Karyna Wheatley and I reviewed patient's records at [facility]. Juan Carlos Orosco M.D. DR: JENNY JOB#: [id number] CC:
--- NOTE | 2019-12-29 18:40 | Cardiac Electrophysiology PN ---
Assessment/Plan Problem List: (1) Headache (2) Chest pain (3) Paroxysmal atrial fibrillation (4) S/P aortic valve replacement (5) H/O thoracic aortic aneurysm repair (6) S/P TKR (total knee replacement) Status: stable, unchanged Status Narrative Mr Lujan is a 74 yo man with a complex past cardiac history as noted above, who is admitted with chest pain, palpitations and L sided h/a. He has no evidence for ischemia/ ACS by enzymes or EKG. BP is not well-controlled. He has hx of med noncompliance He is maintaining SR on telemetry, though has frequent PACs and PVCs. He was recently changed from metoprolol to labetalol as outpt, for BP control. Assessment/Plan Recommend continuing telemetry monitoring. Agree w/ changing labetalol to metoprolol - titrate based on HR, BP response. Resume felodipine. Continue eliquis bid for CVA prevention w/ hx of AF Followup labs in am. Subjective Subjective Cardiac EP/ Cardiology Mr Lujan is a 74 yr old AAM known to me from the office and previous hospitalizations with hx of AVR ( bioprosthetic ) in 2004, descending thoracic aneurysm repair in 2011, ascending thoacic aneurysm repair in 2012, PAF, s/p catheter ablation ( PVI) in 2018, HTN, and previous CVA. He also has hx of gp B strep bacteremia /sepsis related to L knee prosthetic joint infection in 2019. He has had multiple admissions for chest pain, and has had recent workup at [facility], including CT angiogram of chest and coronary arteries showing no obstructive CAD. He presents with L sided H/A , persistent L CP and palpitations. Objective Last 24 Hour Vital Signs Date Time Temp Pulse Resp B/P (MAP) Pulse Ox O2 Delivery O2 Flow Rate FiO2 12/29/19 17:13 96.7 12/29/19 16:00 96.7 68 19 152/93 (112) 95 12/29/19 16:00 84 12/29/19 13:48 98.7 12/29/19 12:00 98.7 64 20 136/91 (106) 96 12/29/19 12:00 87 12/29/19 10:17 96.8 12/29/19 09:00 Room Air 12/29/19 08:00 96.8 76 18 139/95 (110) 96 12/29/19 08:00 82 12/29/19 04:37 Room Air 12/29/19 04:00 98.0 112 18 138/108 100 Room Air 12/29/19 03:00 97.5 12/29/19 02:54 122 18 Room Air 12/29/19 02:54 97.5 122 18 140/110 99 Room Air 12/29/19 02:37 140/110 12/29/19 02:31 122 140/110 12/29/19 01:52 97.5 88 18 140/110 (120) 99 Room Air General Appearance: WD/WN, alert, mild distress EENT: PERRL/EOMI Neck: non-tender, supple, no JVD Rhythm: NSR, PVCs, PACs Cardiovascular: normal peripheral pulses, normal rate, systolic murmur, ar rhythmia, other - II/ NESHA along LSB Respiratory/Chest: lungs clear Abdomen: non tender, soft, no mass Extremities: no swelling Neurologic: alert, oriented x 3, responsive, other - no gross motor deficit Intake and Output 12/28/19 12/29/19 19:00 07:00 Intake Total 720 ml Balance 720 ml Intake Oral 720 ml # Voids 2 # Bowel Movements 1 2D Echo: EKG Sinus tachycardia at 115 bpm with PVCs, couplets LVH Laboratory Tests Test 12/29/19 02:10 12/29/19 03:43 White Blood Count 7.3 K/UL (4.8-10.8) Red Blood Count 5.04 M/UL (4.70-6.10) Hemoglobin 15.2 G/DL (14.2-18.0) Hematocrit 43.3 % (42.0-52.0) Mean Corpuscular Volume 86 FL (80-99) Mean Corpuscular Hemoglobin 30.2 PG (27.0-31.0) Mean Corpuscular Hemoglobin Concent 35.1 G/DL (32.0-36.0) Red Cell Distribution Width 11.9 % (11.6-14.8) Platelet Count 137 K/UL (150-450) L Mean Platelet Volume 11.1 FL (6.5-10.1) H Neutrophils (%) (Auto) 45.7 % (45.0-75.0) Lymphocytes (%) (Auto) 36.7 % (20.0-45.0) Monocytes (%) (Auto) 10.7 % (1.0-10.0) H Eosinophils (%) (Auto) 3.4 % (0.0-3.0) H Basophils (%) (Auto) 3.5 % (0.0-2.0) H Prothrombin Time 12.2 SEC (9.30-11.50) H Prothromb Time International Ratio 1.1 (0.9-1.1) Activated Partial Thromboplast Time 25 SEC (23-33) Sodium Level 139 MMOL/L (136-145) Potassium Level 3.8 MMOL/L (3.5-5.1) Chloride Level 104 MMOL/L (98-107) Carbon Dioxide Level 24 MMOL/L (21-32) Anion Gap 11 mmol/L (5-15) Blood Urea Nitrogen 8 mg/dL (7-18) Creatinine 1.3 MG/DL (0.55-1.30) Estimat Glomerular Filtration Rate > 60 mL/min (>60) Glucose Level 171 MG/DL (74-106) H Calcium Level 9.3 MG/DL (8.5-10.1) Total Bilirubin 1.4 MG/DL (0.2-1.0) H Direct Bilirubin 0.2 MG/DL (0.0-0.3) Aspartate Amino Transf (AST/SGOT) 61 U/L (15-37) H Alanine Aminotransferase (ALT/SGPT) 51 U/L (12-78) Alkaline Phosphatase 98 U/L (46-116) Troponin I 0.008 ng/mL (0.000-0.056) Pro-B-Type Natriuretic Peptide 142 pg/mL (0-125) H Total Protein 6.9 G/DL (6.4-8.2) Albumin 3.5 G/DL (3.4-5.0) Globulin 3.4 g/dL Albumin/Globulin Ratio 1.0 (1.0-2.7) Urine Opiates Screen Negative (NEGATIVE) Urine Barbiturates Screen Negative (NEGATIVE) Phencyclidine (PCP) Screen Negative (NEGATIVE) Urine Amphetamines Screen Negative (NEGATIVE) Urine Benzodiazepines Screen Negative (NEGATIVE) Urine Cocaine Screen Negative (NEGATIVE) Urine Marijuana (THC) Screen Negative (NEGATIVE) Karyna Wheatley MD Dec 29, 2019 18:40
[2019-12-29 20:00] VITALS: BP 125/83
--- NOTE | 2019-12-29 21:00 | History and Physical Report ---
DATE OF ADMISSION: 12/29/2019 HISTORY OF PRESENT ILLNESS: Patient was recently discharged and came back with atrial fibrillation with rapid ventricular response, was admitted to telemetry floor. Patient is dependent on pain medications, was asking for pain medication around the clock. Patient also has generalized pain. Denies headache. Denies nausea, vomiting, or diarrhea. Does have some chest pain as well. Patient also is status post mitral valve replacement, status post ablation in the past. Patient felt palpitations and had possible loss of consciousness and came back to the emergency room, was admitted to telemetric floor. PAST MEDICAL HISTORY: Atrial fibrillation, history of CVA, organic brain syndrome, history of thoracic aneurysm, history of CAD, hypertension. PAST SURGICAL HISTORY: Mitral valve repair, aneurysm repair. FAMILY HISTORY: Noncontributory. SOCIAL HISTORY: Denies history of smoking. No history of alcohol or illicit drugs. REVIEW OF SYSTEMS: HEENT: Denies headaches. RESPIRATORY: Reports . CARDIOVASCULAR: Reports chest pain. Reports palpitation. GASTROINTESTINAL: Denies nausea, vomiting, or diarrhea. EXTREMITIES: Does have generalized pain all over. CENTRAL NERVOUS SYSTEM: . Does not remember the details. MEDICATIONS: Patient is on Eliquis, atenolol, labetalol. PHYSICAL EXAMINATION: VITAL SIGNS: Temperature 98.7, pulse 64, blood pressure 136/91. HEENT: PERRLA. NECK: Supple. CHEST: Clear to auscultation. CARDIOVASCULAR: Irregularly irregular. Has heart murmur. GASTROINTESTINAL: Soft. Positive bowel sounds. No organomegaly. EXTREMITIES: 1+ edema. There is generalized weakness. NEUROLOGIC: Reflexes equal on both sides. Oriented x2. LABORATORY DATA: WBC of 7.3, hemoglobin of 15.2, platelets of 137. Sodium 139, potassium 3.8, BUN of 8, creatinine 1.3. Troponin 0.008. EKG shows atrial fibrillation with rapid ventricular response. ASSESSMENT AND PLAN: Atrial fibrillation with rapid ventricular response, shortness of breath, and chronic pain syndrome. I have asked Dr. Marino Art, Dr. Linn, Dr. Edmondson see the patient for the management of the above-mentioned abnormalities and symptoms. Rafaela Roy M.D. DR: JAVED JOB#: [id number] CC:
[2019-12-29] MEDS: Metoprolol Tartrate 50mg tab ORAL SCH (21:38)
[2019-12-30] VITALS: BP 115/74
[2019-12-30] MEDS: HYDROmorphone 1mg/ml Carpuject IVP PRN ×8 (02:03→23:34)
[2019-12-30 04:00] VITALS: BP 121/74
[2019-12-30 08:00] VITALS: BP 138/89
[2019-12-30] MEDS: Metoprolol Tartrate 50mg tab ORAL SCH ×2 (08:06→20:39)
[2019-12-30] MEDS: Eliquis 5mg tablet ORAL SCH ×2 (08:06→17:28)
[2019-12-30 12:00] VITALS: BP 126/91
--- NOTE | 2019-12-30 15:37 | Pulmonology Progress Note ---
Subjective HEENT: Repors: no symptoms Respiratory: Reports: no symptoms Cardiovascular: Reports: chest pain Gastrointestinal/Abdominal: Reports: no symptoms Neurologic: Reports: headache Allergies: Coded Allergies: MORPHINE (Verified Allergy, Severe, 11/07/10) NITROGLYCERIN (Verified Allergy, Severe, 11/07/10) KETOROLAC (Unverified Allergy, Intermediate, 03/14/14) FISH CONTAINING PRODUCTS (Verified Allergy, Mild, 07/20/14) per patient, "it knocks me out" ACETAMINOPHEN (Unverified Allergy, Unknown, 07/19/14) CODEINE (Unverified Allergy, Unknown, 11/03/13) UNKNOWN DIPHENHYDRAMINE (Unverified Allergy, Unknown, 09/30/14) IBUPROFEN (Unverified Allergy, Unknown, 11/03/13) UNKNOWN PROCHLORPERAZINE (Unverified Allergy, Unknown, 07/19/14) GABAPENTIN (Verified Adverse Reaction, Intermediate, 07/20/14) Per patient, it makes him sweat, throws up, and "blacks out" Uncoded Allergies: IV contrast (Allergy, Unknown, 11/30/19) Objective Last 24 Hour Vital Signs Date Time Temp Pulse Resp B/P (MAP) Pulse Ox O2 Delivery O2 Flow Rate FiO2 12/30/19 12:00 97.9 74 20 126/91 (103) 96 12/30/19 12:00 72 12/30/19 11:53 98.1 12/30/19 09:00 Room Air 12/30/19 08:37 98.1 12/30/19 08:09 78 138/89 12/30/19 08:06 78 138/89 12/30/19 08:00 98.1 78 20 138/89 (105) 96 12/30/19 08:00 79 12/30/19 04:00 98.1 69 18 121/74 (90) 97 12/30/19 04:00 69 12/30/19 00:00 78 12/30/19 00:00 98.4 74 19 115/74 (88) 96 12/29/19 21:38 87 125/83 12/29/19 21:00 Room Air 12/29/19 20:00 95 12/29/19 20:00 98.1 85 20 125/83 (97) 95 12/29/19 17:13 96.7 12/29/19 16:00 96.7 68 19 152/93 (112) 95 12/29/19 16:00 84 Intake and Output 12/29/19 12/30/19 19:00 07:00 Intake Total 400 ml Output Total 1200 ml 125 ml Balance -1200 ml 275 ml Intake Oral 400 ml Output Urine Total 1200 ml 125 ml # Voids 3 1 Respiratory: chest wall non-tender, lungs clear Cardiovascular: normal peripheral pulses, normal rate Abdomen: soft, non tender Extremities: no edema Neurologic: oriented x 3 Laboratory Tests 12/30/19 05:30: Troponin I 0.005, Pro-B-Type Natriuretic Peptide 109 Current Medications Medications (Trade) Dose Ordered Sig/Sheba Route PRN Reason Start Time Stop Time Status Last Admin Dose Admin Acetaminophen/ Hydrocodone Bitart ([place] 5/325) 1 tab Q6H PRN ORAL For mild Pain 12/29/19 08:30 01/05/20 08:29 Amlodipine Besylate (Norvasc) 2.5 mg DAILY ORAL 12/30/19 09:00 01/29/20 08:59 12/30/19 08:09 Apixaban (Eliquis) 5 mg BID ORAL 12/29/19 09:00 03/28/20 08:59 12/30/19 08:06 Hydromorphone HCl (Dilaudid) 1 mg Q3H PRN IVP severe pain 12/29/19 09:30 01/05/20 09:29 12/30/19 14:25 Metoprolol Tartrate (Lopressor) 50 mg Q12HR ORAL 12/29/19 21:00 03/28/20 20:59 12/30/19 08:06 Assessment/Plan Assessment/Plan 1.Atypical chest pain. 2. Rule out ACS. 3. History of atrial fibrillation, on Eliquis. 4. Previous CVA. DISCUSSION: Pain Management Continue medications. 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 No acute pulmonary intervention required. Above plan discussed with supervising physician Adele Hoyt NP Dec 30, 2019 15:37
[2019-12-30 16:00] VITALS: BP 122/79
--- NOTE | 2019-12-30 16:44 | Cardiac Electrophysiology PN ---
Assessment/Plan Assessment/Plan 1. Paroxysmal atrial fibrillation, status post ablation in 2018 at [facility], currently in sinus rhythm. Patient is on Metoprolol 50 mg b.i.d. and Eliquis 2. Chest pain. Patient's CT angio at [facility] in 2018 showed noncritical coronary disease and EKG does not show any acute ischemic changes. Patient was ruled out for myocardial infarction with current EF of 50%. Patient refused stress test as he stated he is allergic to lot of medications. 3. Status post bioprosthetic aortic valve replacement in 2004. 4. Status post descending aortic aneurysm repair in June 2011. 5. Aortic root replacement in January 2013. 6. History of anemia secondary to bleeding ascending colon polyp in January 2019. CARLO RN and Dr Roy Subjective Subjective Alert in NAD. No events. Objective Last 24 Hour Vital Signs Date Time Temp Pulse Resp B/P (MAP) Pulse Ox O2 Delivery O2 Flow Rate FiO2 12/30/19 16:00 78 12/30/19 14:55 97.9 12/30/19 12:00 97.9 74 20 126/91 (103) 96 12/30/19 12:00 72 12/30/19 11:53 98.1 12/30/19 09:00 Room Air 12/30/19 08:37 98.1 12/30/19 08:09 78 138/89 12/30/19 08:06 78 138/89 12/30/19 08:00 98.1 78 20 138/89 (105) 96 12/30/19 08:00 79 12/30/19 04:00 98.1 69 18 121/74 (90) 97 12/30/19 04:00 69 12/30/19 00:00 78 12/30/19 00:00 98.4 74 19 115/74 (88) 96 12/29/19 21:38 87 125/83 12/29/19 21:00 Room Air 12/29/19 20:00 95 12/29/19 20:00 98.1 85 20 125/83 (97) 95 12/29/19 17:13 96.7 Intake and Output 12/29/19 12/30/19 19:00 07:00 Intake Total 400 ml Output Total 1200 ml 125 ml Balance -1200 ml 275 ml Intake Oral 400 ml Output Urine Total 1200 ml 125 ml # Voids 3 1 Laboratory Tests Test 12/30/19 05:30 Troponin I 0.005 ng/mL (0.000-0.056) Pro-B-Type Natriuretic Peptide 109 pg/mL (0-125) Objective HEAD AND NECK: No JVD. LUNGS: Clear. CARDIOVASCULAR: Regular S1 and S2 with no gallop or murmur. ABDOMEN: Soft. EXTREMITIES: 1+ pitting edema. Juan Carlos Orosco MD Dec 30, 2019 16:44
--- NOTE | 2019-12-30 18:34 | General Progress Note ---
Subjective ROS Limited/Unobtainable: Yes Allergies: Coded Allergies: MORPHINE (Verified Allergy, Severe, 11/07/10) NITROGLYCERIN (Verified Allergy, Severe, 11/07/10) KETOROLAC (Unverified Allergy, Intermediate, 03/14/14) FISH CONTAINING PRODUCTS (Verified Allergy, Mild, 07/20/14) per patient, "it knocks me out" ACETAMINOPHEN (Unverified Allergy, Unknown, 07/19/14) CODEINE (Unverified Allergy, Unknown, 11/03/13) UNKNOWN DIPHENHYDRAMINE (Unverified Allergy, Unknown, 09/30/14) IBUPROFEN (Unverified Allergy, Unknown, 11/03/13) UNKNOWN PROCHLORPERAZINE (Unverified Allergy, Unknown, 07/19/14) GABAPENTIN (Verified Adverse Reaction, Intermediate, 07/20/14) Per patient, it makes him sweat, throws up, and "blacks out" Uncoded Allergies: IV contrast (Allergy, Unknown, 11/30/19) Objective Last 24 Hour Vital Signs Date Time Temp Pulse Resp B/P (MAP) Pulse Ox O2 Delivery O2 Flow Rate FiO2 12/30/19 17:58 97.5 12/30/19 16:00 97.5 74 20 122/79 (93) 94 12/30/19 16:00 78 12/30/19 14:55 97.9 12/30/19 12:00 97.9 74 20 126/91 (103) 96 12/30/19 12:00 72 12/30/19 11:53 98.1 12/30/19 09:00 Room Air 12/30/19 08:37 98.1 12/30/19 08:09 78 138/89 12/30/19 08:06 78 138/89 12/30/19 08:00 98.1 78 20 138/89 (105) 96 12/30/19 08:00 79 12/30/19 04:00 98.1 69 18 121/74 (90) 97 12/30/19 04:00 69 12/30/19 00:00 78 12/30/19 00:00 98.4 74 19 115/74 (88) 96 12/29/19 21:38 87 125/83 12/29/19 21:00 Room Air 12/29/19 20:00 95 12/29/19 20:00 98.1 85 20 125/83 (97) 95 Intake and Output 12/29/19 12/30/19 19:00 07:00 Intake Total 400 ml Output Total 1200 ml 125 ml Balance -1200 ml 275 ml Intake Oral 400 ml Output Urine Total 1200 ml 125 ml # Voids 3 1 Laboratory Tests 12/30/19 05:30: Troponin I 0.005, Pro-B-Type Natriuretic Peptide 109 Height (Feet): 6 Height (Inches): 1.00 Weight (Pounds): 266 Assessment/Plan Problem List: (1) CHF (congestive heart failure) ICD Codes: I50.9 - Heart failure, unspecified SNOMED: 60245755 (2) Extremity pain ICD Codes: M79.609 - Pain in unspecified limb SNOMED: 70374427 (3) Chest pain ICD Codes: R07.9 - Chest pain, unspecified SNOMED: 03375465 (4) Rapid atrial fibrillation ICD Codes: I48.91 - Unspecified atrial fibrillation SNOMED: 034233704 (5) CVA (cerebral vascular accident) ICD Codes: I63.9 - Cerebral infarction, unspecified SNOMED: 312707956 Status: stable, unchanged Assessment/Plan: a fib w rvr resp insuff chronic pain syndrome afebrile hr is improved Rafaela Roy MD Dec 30, 2019 18:34
--- NOTE | 2019-12-30 19:54 | Cardiology Report ---
APPROVED REPORT EKG Measurement Heart [id number] NC 214P-2 [id number] <Conclusion> Sinus rhythm with 1st degree AV block with premature atrial complexes Left anterior fascicular block Moderate voltage criteria for LVH, may be normal variant Abnormal ECG
[2019-12-30 20:00] VITALS: BP 136/82
[2019-12-31] VITALS: BP 125/78
[2019-12-31] MEDS: HYDROmorphone 1mg/ml Carpuject IVP PRN ×7 (02:35→21:16)
[2019-12-31 04:00] VITALS: BP 136/86
[2019-12-31 08:00] VITALS: BP 137/59
[2019-12-31] MEDS: Eliquis 5mg tablet ORAL SCH ×2 (08:52→18:04)
[2019-12-31] MEDS: Metoprolol Tartrate 50mg tab ORAL SCH ×2 (08:52→21:15)
--- NOTE | 2019-12-31 09:41 | Pulmonology Progress Note ---
Subjective ROS Limited/Unobtainable: Yes Interval Events: None new reported Constitutional: Reports: no symptoms HEENT: Repors: no symptoms Respiratory: Reports: no symptoms Cardiovascular: Reports: chest pain Gastrointestinal/Abdominal: Reports: no symptoms Neurologic: Reports: headache Allergies: Coded Allergies: MORPHINE (Verified Allergy, Severe, 11/07/10) NITROGLYCERIN (Verified Allergy, Severe, 11/07/10) KETOROLAC (Unverified Allergy, Intermediate, 03/14/14) FISH CONTAINING PRODUCTS (Verified Allergy, Mild, 07/20/14) per patient, "it knocks me out" ACETAMINOPHEN (Unverified Allergy, Unknown, 07/19/14) CODEINE (Unverified Allergy, Unknown, 11/03/13) UNKNOWN DIPHENHYDRAMINE (Unverified Allergy, Unknown, 09/30/14) IBUPROFEN (Unverified Allergy, Unknown, 11/03/13) UNKNOWN PROCHLORPERAZINE (Unverified Allergy, Unknown, 07/19/14) GABAPENTIN (Verified Adverse Reaction, Intermediate, 07/20/14) Per patient, it makes him sweat, throws up, and "blacks out" Uncoded Allergies: IV contrast (Allergy, Unknown, 11/30/19) Objective Last 24 Hour Vital Signs Date Time Temp Pulse Resp B/P (MAP) Pulse Ox O2 Delivery O2 Flow Rate FiO2 12/31/19 08:52 90 137/59 12/31/19 08:52 90 137/59 12/31/19 08:20 77 12/31/19 08:00 97.9 90 20 137/59 (85) 99 12/31/19 04:00 97.5 76 20 136/86 (103) 95 12/31/19 04:00 75 12/31/19 00:00 97.9 60 24 125/78 (94) 94 12/31/19 00:00 63 12/30/19 21:00 Room Air 12/30/19 20:39 77 136/82 12/30/19 20:00 98.4 77 20 136/82 (100) 98 12/30/19 20:00 74 12/30/19 17:58 97.5 12/30/19 16:00 97.5 74 20 122/79 (93) 94 12/30/19 16:00 78 12/30/19 14:55 97.9 12/30/19 12:00 97.9 74 20 126/91 (103) 96 12/30/19 12:00 72 12/30/19 11:53 98.1 Intake and Output 0 12/30/19 12/31/19 19:00 07:00 Intake Total 1080 ml 180 ml Balance 1080 ml 180 ml Intake Oral 1080 ml 180 ml # Voids 1 HEENT: normocephalic Respiratory: chest wall non-tender, lungs clear Cardiovascular: normal peripheral pulses, normal rate Abdomen: soft, non tender Extremities: no edema Neurologic: oriented x 3 Current Medications Medications (Trade) Dose Ordered Sig/Sheba Route PRN Reason Start Time Stop Time Status Last Admin Dose Admin Acetaminophen/ Hydrocodone Bitart ([place] 5/325) 1 tab Q6H PRN ORAL For mild Pain 12/29/19 08:30 01/05/20 08:29 Amlodipine Besylate (Norvasc) 2.5 mg DAILY ORAL 12/30/19 09:00 01/29/20 08:59 12/31/19 08:52 Apixaban (Eliquis) 5 mg BID ORAL 12/29/19 09:00 03/28/20 08:59 12/31/19 08:52 Hydromorphone HCl (Dilaudid) 1 mg Q3H PRN IVP severe pain 12/29/19 09:30 01/05/20 09:29 12/31/19 08:52 Metoprolol Tartrate (Lopressor) 50 mg Q12HR ORAL 12/29/19 21:00 03/28/20 20:59 12/31/19 08:52 Assessment/Plan Assessment/Plan IMPRESSION: 1. Atypical chest pain. 2. Rule out ACS. 3. History of atrial fibrillation, on Eliquis. 4. Previous CVA. DISCUSSION: Predominant care per Cardiology. Pain Management notes reviewed. Continue medications. 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 No acute pulmonary intervention required. Roshan Aviles Omar Syed MD Dec 31, 2019 09:41
[2019-12-31 11:55] VITALS: BP 133/82
--- NOTE | 2019-12-31 13:25 | General Progress Note ---
Subjective Date patient seen: Dec 31, 2019 Time patient seen: 11:50 - pm Allergies: Coded Allergies: MORPHINE (Verified Allergy, Severe, 11/07/10) NITROGLYCERIN (Verified Allergy, Severe, 11/07/10) KETOROLAC (Unverified Allergy, Intermediate, 03/14/14) FISH CONTAINING PRODUCTS (Verified Allergy, Mild, 07/20/14) per patient, "it knocks me out" ACETAMINOPHEN (Unverified Allergy, Unknown, 07/19/14) CODEINE (Unverified Allergy, Unknown, 11/03/13) UNKNOWN DIPHENHYDRAMINE (Unverified Allergy, Unknown, 09/30/14) IBUPROFEN (Unverified Allergy, Unknown, 11/03/13) UNKNOWN PROCHLORPERAZINE (Unverified Allergy, Unknown, 07/19/14) GABAPENTIN (Verified Adverse Reaction, Intermediate, 07/20/14) Per patient, it makes him sweat, throws up, and "blacks out" Uncoded Allergies: IV contrast (Allergy, Unknown, 11/30/19) Subjective Constitutional: Denies: no symptoms, chills, diaphoresis, fever, malaise, weakness, other HEENT: Denies: no symptoms, eye pain, blurred vision, tearing, double vision, ear pain, ear discharge, nose pain, nose congestion, throat pain, throat swelling, mouth pain, mouth swelling, other Cardiovascular: Denies: no symptoms, chest pain, edema, irregular heart rate, lightheadedness, palpitations, syncope, other Respiratory: Denies: no symptoms, cough, orthopnea, shortness of breath, SOB with excertion, SOB at rest, sputum, stridor, wheezing, other Gastrointestinal/Abdominal: Denies: no symptoms, abdomen distended, abdominal pain, black stools, tarry stools, blood in stool, constipated, diarrhea, dif ficulty swallowing, nausea, poor appetite, poor fluid intake, rectal bleeding, vomiting, other Genitourinary: Denies: no symptoms, burning, discharge, frequency, flank pain, hematuria, incontinence, pain, urgency, other Neurologic/Psychiatric: Denies: no symptoms, anxiety, depressed, emotional problems, headache, numbness, paresthesia, pre-existing deficit, seizure, tingling, tremors, weakness, other Endocrine: Denies: no symptoms, excessive sweating, flushing, intolerance to cold, intolerance to heat, increased hunger, increased thirst, increased urine, unexplained weight gain, unexplained weight loss, other Hematologic/Lymphatic: Denies: no symptoms, anemia, easy bleeding, easy bruising, other This is a 74 y/o male seen on the tele floor of [facility] [place]. Patient in bed continues to c/o pain which has been tolerated on the Dilaudid. No new complaints at this time. Objective Last 24 Hour Vital Signs Date Time Temp Pulse Resp B/P (MAP) Pulse Ox O2 Delivery O2 Flow Rate FiO2 12/31/19 11:55 97.9 70 20 133/82 (99) 96 12/31/19 08:52 90 137/59 12/31/19 08:52 90 137/59 12/31/19 08:20 77 12/31/19 08:00 97.9 90 20 137/59 (85) 99 12/31/19 04:00 97.5 76 20 136/86 (103) 95 12/31/19 04:00 75 12/31/19 00:00 97.9 60 24 125/78 (94) 94 12/31/19 00:00 63 12/30/19 21:00 Room Air 12/30/19 20:39 77 136/82 12/30/19 20:00 98.4 77 20 136/82 (100) 98 12/30/19 20:00 74 12/30/19 17:58 97.5 12/30/19 16:00 97.5 74 20 122/79 (93) 94 12/30/19 16:00 78 12/30/19 14:55 97.9 Intake and Output 12/30/19 12/31/19 19:00 07:00 Intake Total 1080 ml 180 ml Balance 1080 ml 180 ml Intake Oral 1080 ml 180 ml # Voids 1 Height (Feet): 6 Height (Inches): 1.00 Weight (Pounds): 266 Objective General Appearance: no apparent distress, alert EENT: PERRL/EOMI, TMs normal Neck: non-tender, normal alignment, supple Cardiovascular: normal rate, regular rhythm Respiratory/Chest: chest wall non-tender, lungs clear Abdomen: non tender, soft Extremities: non-tender Edema: no edema noted Arm (L), no edema noted Arm (R), no edema noted Leg (L), no edema noted Leg (R), no edema noted Pedal (L), no edema noted Pedal (R), no edema noted Generalized Neurologic: alert, oriented x 3 Skin: normal pigmentation Assessment/Plan Assessment/Plan: (1) Hemiplegia, flaccid, nondominant side (2) Lumbar post-laminectomy syndrome (3) HO TKR (total knee replacement) (4) OA (osteoarthritis) of knee (5) Thalamic pain syndrome (6) CVA (cerebral vascular accident) We will continue the patient on Dilaudid and [place] P/w Dr. Linn and Dr. Linn concurred. Fabiano Loza Dec 31, 2019 13:25
[2019-12-31] MEDS ORDERED: Lexiscan 0.4mg/5ml syringe IV PRN ×2 (14:30→15:30)
--- NOTE | 2019-12-31 14:51 | Cardiac Electrophysiology PN ---
Assessment/Plan Assessment/Plan 1. Paroxysmal atrial fibrillation, status post ablation in 2018 at [facility], currently in sinus rhythm. On Metoprolol 50 mg bid and Eliquis 2. Chest pain. Patient's CT angio at [facility] in 2018 showed noncritical coronary disease and EKG does not show any acute ischemic changes. Patient was ruled out for myocardial infarction with current EF of 50%. Patient refused stress test as he stated he is allergic to Contrast. Will reorder stress test for tomorrow. 3. Status post bioprosthetic aortic valve replacement in 2004. 4. Status post descending aortic aneurysm repair in June 2011. 5. Aortic root replacement in January 2013. 6. History of anemia secondary to bleeding ascending colon polyp in January 2019. CARLO RN and Dr Roy Subjective Subjective Alert in NAD. Complains of chest pain. Objective Last 24 Hour Vital Signs Date Time Temp Pulse Resp B/P (MAP) Pulse Ox O2 Delivery O2 Flow Rate FiO2 12/31/19 11:55 97.9 70 20 133/82 (99) 96 12/31/19 11:36 70 12/31/19 09:00 Room Air 12/31/19 08:52 90 137/59 12/31/19 08:52 90 137/59 12/31/19 08:20 77 12/31/19 08:00 97.9 90 20 137/59 (85) 99 12/31/19 04:00 97.5 76 20 136/86 (103) 95 12/31/19 04:00 75 12/31/19 00:00 97.9 60 24 125/78 (94) 94 12/31/19 00:00 63 12/30/19 21:00 Room Air 12/30/19 20:39 77 136/82 12/30/19 20:00 98.4 77 20 136/82 (100) 98 12/30/19 20:00 74 12/30/19 17:58 97.5 12/30/19 16:00 97.5 74 20 122/79 (93) 94 12/30/19 16:00 78 12/30/19 14:55 97.9 Intake and Output 12/30/19 12/31/19 19:00 07:00 Intake Total 1080 ml 180 ml Balance 1080 ml 180 ml Intake Oral 1080 ml 180 ml # Voids 1 Objective HEAD AND NECK: No JVD. LUNGS: Clear. CARDIOVASCULAR: Regular S1 and S2 with no gallop or murmur. ABDOMEN: Soft. EXTREMITIES: 1+ pitting edema. Juan Carlos Orosco MD Dec 31, 2019 14:51
[2019-12-31 16:00] VITALS: BP 133/77
[2019-12-31] MEDS: HYDROcodone/Acetamin 5/325 tab ORAL PRN (18:39)
--- NOTE | 2019-12-31 19:34 | Cardiology Report ---
ADDENDUM APPROVED REPORT EKG Measurement Heart [id number] CT 152P [id number] <Conclusion> Atrial fibrillation with RVR and aberrancy Incomplete right bundle branch block Left anterior fascicular block Left ventricular hypertrophy with repolarization abnormality Abnormal ECG
[2019-12-31 20:00] VITALS: BP 136/80
--- NOTE | 2019-12-31 21:56 | General Progress Note ---
Subjective ROS Limited/Unobtainable: Yes Allergies: Coded Allergies: MORPHINE (Verified Allergy, Severe, 11/07/10) NITROGLYCERIN (Verified Allergy, Severe, 11/07/10) KETOROLAC (Unverified Allergy, Intermediate, 03/14/14) FISH CONTAINING PRODUCTS (Verified Allergy, Mild, 07/20/14) per patient, "it knocks me out" ACETAMINOPHEN (Unverified Allergy, Unknown, 07/19/14) CODEINE (Unverified Allergy, Unknown, 11/03/13) UNKNOWN DIPHENHYDRAMINE (Unverified Allergy, Unknown, 09/30/14) IBUPROFEN (Unverified Allergy, Unknown, 11/03/13) UNKNOWN PROCHLORPERAZINE (Unverified Allergy, Unknown, 07/19/14) GABAPENTIN (Verified Adverse Reaction, Intermediate, 07/20/14) Per patient, it makes him sweat, throws up, and "blacks out" Uncoded Allergies: IV contrast (Allergy, Unknown, 11/30/19) Objective Last 24 Hour Vital Signs Date Time Temp Pulse Resp B/P (MAP) Pulse Ox O2 Delivery O2 Flow Rate FiO2 12/31/19 21:15 71 136/80 12/31/19 20:00 97.3 71 18 136/80 (98) 96 12/31/19 16:00 98.1 72 20 133/77 (95) 96 12/31/19 15:14 74 12/31/19 11:55 97.9 70 20 133/82 (99) 96 12/31/19 11:36 70 12/31/19 09:00 Room Air 12/31/19 08:52 90 137/59 12/31/19 08:52 90 137/59 12/31/19 08:20 77 12/31/19 08:00 97.9 90 20 137/59 (85) 99 12/31/19 04:00 97.5 76 20 136/86 (103) 95 12/31/19 04:00 75 12/31/19 00:00 97.9 60 24 125/78 (94) 94 12/31/19 00:00 63 Intake and Output 12/30/19 12/31/19 19:00 07:00 Intake Total 1080 ml 180 ml Balance 1080 ml 180 ml Intake Oral 1080 ml 180 ml # Voids 1 Height (Feet): 6 Height (Inches): 1.00 Weight (Pounds): 266 Assessment/Plan Problem List: (1) CHF (congestive heart failure) ICD Codes: I50.9 - Heart failure, unspecified SNOMED: 24559020 (2) Extremity pain ICD Codes: M79.609 - Pain in unspecified limb SNOMED: 02584438 (3) Chest pain ICD Codes: R07.9 - Chest pain, unspecified SNOMED: 05124353 (4) Rapid atrial fibrillation ICD Codes: I48.91 - Unspecified atrial fibrillation SNOMED: 147619408 (5) CVA (cerebral vascular accident) ICD Codes: I63.9 - Cerebral infarction, unspecified SNOMED: 001266003 Status: stable, unchanged Assessment/Plan: a fib w rvr chronic pain syndrome h/o ablation asking for pain meds bp improved Rafaela Roy MD Dec 31, 2019 21:56
[2020-01-01] VITALS: BP 134/74
[2020-01-01 04:00] VITALS: BP 128/56
[2020-01-01] MEDS: HYDROmorphone 1mg/ml Carpuject IVP PRN ×6 (04:25→21:14)
[2020-01-01 07:59] VITALS: BP 114/63
[2020-01-01] MEDS: Eliquis 5mg tablet ORAL SCH ×2 (08:06→17:21)
--- NOTE | 2020-01-01 08:48 | General Progress Note ---
Subjective Date patient seen: Jan 01, 2020 Time patient seen: 07:15 - am Allergies: Coded Allergies: MORPHINE (Verified Allergy, Severe, 11/07/10) NITROGLYCERIN (Verified Allergy, Severe, 11/07/10) KETOROLAC (Unverified Allergy, Intermediate, 03/14/14) FISH CONTAINING PRODUCTS (Verified Allergy, Mild, 07/20/14) per patient, "it knocks me out" ACETAMINOPHEN (Unverified Allergy, Unknown, 07/19/14) CODEINE (Unverified Allergy, Unknown, 11/03/13) UNKNOWN DIPHENHYDRAMINE (Unverified Allergy, Unknown, 09/30/14) IBUPROFEN (Unverified Allergy, Unknown, 11/03/13) UNKNOWN PROCHLORPERAZINE (Unverified Allergy, Unknown, 07/19/14) GABAPENTIN (Verified Adverse Reaction, Intermediate, 07/20/14) Per patient, it makes him sweat, throws up, and "blacks out" Uncoded Allergies: IV contrast (Allergy, Unknown, 11/30/19) Subjective Constitutional: Denies: no symptoms, chills, diaphoresis, fever, malaise, weakness, other HEENT: Denies: no symptoms, eye pain, blurred vision, tearing, double vision, ear pain, ear discharge, nose pain, nose congestion, throat pain, throat swelling, mouth pain, mouth swelling, other Cardiovascular: Denies: no symptoms, chest pain, edema, irregular heart rate, lightheadedness, palpitations, syncope, other Respiratory: Denies: no symptoms, cough, orthopnea, shortness of breath, SOB with excertion, SOB at rest, sputum, stridor, wheezing, other Gastrointestinal/Abdominal: Denies: no symptoms, abdomen distended, abdominal pain, black stools, tarry stools, blood in stool, constipated, diarrhea, dif ficulty swallowing, nausea, poor appetite, poor fluid intake, rectal bleeding, vomiting, other Genitourinary: Denies: no symptoms, burning, discharge, frequency, flank pain, hematuria, incontinence, pain, urgency, other Neurologic/Psychiatric: Denies: no symptoms, anxiety, depressed, emotional problems, headache, numbness, paresthesia, pre-existing deficit, seizure, tingling, tremors, weakness, other Endocrine: Denies: no symptoms, excessive sweating, flushing, intolerance to cold, intolerance to heat, increased hunger, increased thirst, increased urine, unexplained weight gain, unexplained weight loss, other Hematologic/Lymphatic: Denies: no symptoms, anemia, easy bleeding, easy bruising, other This is a 74 y/o male [place] [facility] [place] Still in bed and pain tolerated on the Dilaudid. No new complaints at this time. Objective Last 24 Hour Vital Signs Date Time Temp Pulse Resp B/P (MAP) Pulse Ox O2 Delivery O2 Flow Rate FiO2 01/01/20 07:59 98.1 68 20 114/63 (80) 96 01/01/20 04:55 97.4 01/01/20 04:00 67 01/01/20 04:00 97.5 70 18 128/56 (80) 98 01/01/20 00:00 62 01/01/20 00:00 97.4 63 18 134/74 (94) 97 12/31/19 21:46 97.3 12/31/19 21:15 71 136/80 12/31/19 21:00 Room Air 12/31/19 20:00 71 12/31/19 20:00 97.3 71 18 136/80 (98) 96 12/31/19 16:00 98.1 72 20 133/77 (95) 96 12/31/19 15:14 74 12/31/19 11:55 97.9 70 20 133/82 (99) 96 12/31/19 11:36 70 12/31/19 09:00 Room Air 12/31/19 08:52 90 137/59 12/31/19 08:52 90 137/59 Intake and Output 12/31/19 01/01/20 19:00 07:00 Intake Total 360 ml Output Total 650 ml Balance 360 ml -650 ml Intake Oral 360 ml Output Urine Total 650 ml # Voids 3 3 # Bowel Movements 1 Height (Feet): 6 Height (Inches): 1.00 Weight (Pounds): 266 Objective General Appearance: no apparent distress, alert EENT: PERRL/EOMI, TMs normal Neck: non-tender, normal alignment, supple Cardiovascular: normal rate, regular rhythm Respiratory/Chest: chest wall non-tender, lungs clear Abdomen: non tender, soft Extremities: non-tender Edema: no edema noted Arm (L), no edema noted Arm (R), no edema noted Leg (L), no edema noted Leg (R), no edema noted Pedal (L), no edema noted Pedal (R), no edema noted Generalized Neurologic: alert, oriented x 3 Skin: normal pigmentation Assessment/Plan Assessment/Plan: (1) Hemiplegia, flaccid, nondominant side (2) Lumbar post-laminectomy syndrome (3) HO TKR (total knee replacement) (4) OA (osteoarthritis) of knee (5) Thalamic pain syndrome (6) CVA (cerebral vascular accident) We will continue the patient on Dilaudid and [place] P/w Dr. Linn and Dr. Linn concurred. Fabiano Loza Jan 01, 2020 08:48
[2020-01-01] MEDS: HYDROcodone/Acetamin 5/325 tab ORAL PRN ×2 (08:58→22:17)
[2020-01-01] MEDS: Metoprolol Tartrate 50mg tab ORAL SCH ×2 (08:58→21:13)
--- NOTE | 2020-01-01 08:59 | Pulmonology Progress Note ---
Subjective ROS Limited/Unobtainable: Yes Interval Events: None new reported Constitutional: Reports: no symptoms HEENT: Repors: no symptoms Respiratory: Reports: no symptoms Cardiovascular: Reports: chest pain Gastrointestinal/Abdominal: Reports: no symptoms Neurologic: Reports: headache Allergies: Coded Allergies: MORPHINE (Verified Allergy, Severe, 11/07/10) NITROGLYCERIN (Verified Allergy, Severe, 11/07/10) KETOROLAC (Unverified Allergy, Intermediate, 03/14/14) FISH CONTAINING PRODUCTS (Verified Allergy, Mild, 07/20/14) per patient, "it knocks me out" ACETAMINOPHEN (Unverified Allergy, Unknown, 07/19/14) CODEINE (Unverified Allergy, Unknown, 11/03/13) UNKNOWN DIPHENHYDRAMINE (Unverified Allergy, Unknown, 09/30/14) IBUPROFEN (Unverified Allergy, Unknown, 11/03/13) UNKNOWN PROCHLORPERAZINE (Unverified Allergy, Unknown, 07/19/14) GABAPENTIN (Verified Adverse Reaction, Intermediate, 07/20/14) Per patient, it makes him sweat, throws up, and "blacks out" Uncoded Allergies: IV contrast (Allergy, Unknown, 11/30/19) Objective Last 24 Hour Vital Signs Date Time Temp Pulse Resp B/P (MAP) Pulse Ox O2 Delivery O2 Flow Rate FiO2 01/01/20 08:58 68 114/63 01/01/20 08:58 68 114/63 01/01/20 07:59 98.1 68 20 114/63 (80) 96 01/01/20 04:55 97.4 01/01/20 04:00 67 01/01/20 04:00 97.5 70 18 128/56 (80) 98 01/01/20 00:00 62 01/01/20 00:00 97.4 63 18 134/74 (94) 97 12/31/19 21:46 97.3 12/31/19 21:15 71 136/80 12/31/19 21:00 Room Air 12/31/19 20:00 71 12/31/19 20:00 97.3 71 18 136/80 (98) 96 12/31/19 16:00 98.1 72 20 133/77 (95) 96 12/31/19 15:14 74 10/18/20 11:55 97.9 70 20 133/82 (99) 96 12/31/19 11:36 70 12/31/19 09:00 Room Air Intake and Output 12/31/19 01/01/20 19:00 07:00 Intake Total 360 ml Output Total 650 ml Balance 360 ml -650 ml Intake Oral 360 ml Output Urine Total 650 ml # Voids 3 3 # Bowel Movements 1 HEENT: normocephalic Respiratory: chest wall non-tender, lungs clear Cardiovascular: normal peripheral pulses, normal rate Abdomen: soft, non tender Extremities: no edema Neurologic: oriented x 3 Current Medications Medications (Trade) Dose Ordered Sig/Sheba Route PRN Reason Start Time Stop Time Status Last Admin Dose Admin Acetaminophen/ Hydrocodone Bitart ([place] 5/325) 1 tab Q6H PRN ORAL For mild Pain 12/29/19 08:30 01/05/20 08:29 01/01/20 08:58 Amlodipine Besylate (Norvasc) 2.5 mg DAILY ORAL 12/30/19 09:00 01/29/20 08:59 01/01/20 08:58 Apixaban (Eliquis) 5 mg BID ORAL 12/29/19 09:00 03/28/20 08:59 01/01/20 08:06 Hydromorphone HCl (Dilaudid) 1 mg Q3H PRN IVP severe pain 12/29/19 09:30 01/05/20 09:29 01/01/20 08:06 Metoprolol Tartrate (Lopressor) 50 mg Q12HR ORAL 12/29/19 21:00 03/28/20 20:59 01/01/20 08:58 Regadenoson (Lexiscan) 0.4 mg ONCE PRN IV CARDIOLOGY 12/31/19 15:30 01/03/20 15:29 Assessment/Plan Assessment/Plan IMPRESSION: 1. Atypical chest pain. 2. Rule out ACS. 3. History of atrial fibrillation, on Eliquis. 4. Previous CVA. DISCUSSION: Predominant care per Cardiology. Pain Management notes reviewed. Continue medications. I will follow as office service coordinator. No acute pulmonary intervention required. Roshan Aviles Omar Syed MD Jan 01, 2020 08:59
[2020-01-01 12:00] VITALS: BP 131/81
--- NOTE | 2020-01-01 12:59 | Cardiac Electrophysiology PN ---
Assessment/Plan Assessment/Plan 1. Paroxysmal atrial fibrillation, status post ablation in 2018 at [facility], currently in sinus rhythm. On Metoprolol 50 mg bid and Eliquis 2. Chest pain. Patient's CT angio at [facility] in 2018 showed noncritical coronary disease and EKG does not show any acute ischemic changes. Patient was ruled out for myocardial infarction with current EF of 50%. Patient refused stress test last admission last week as he stated he is allergic to Contrast. Refused stress test again today 3. Status post bioprosthetic aortic valve replacement in 2004. 4. Status post descending aortic aneurysm repair in June 2011. 5. Aortic root replacement in January 2013. 6. History of anemia secondary to bleeding ascending colon polyp in January 2019. CARLO RN and Dr Roy OK to [place] Subjective Subjective Alert in NAD.Refused stress test again Objective Last 24 Hour Vital Signs Date Time Temp Pulse Resp B/P (MAP) Pulse Ox O2 Delivery O2 Flow Rate FiO2 01/01/20 11:46 79 01/01/20 09:00 Room Air 01/01/20 08:58 68 114/63 01/01/20 08:58 68 114/63 01/01/20 08:27 66 01/01/20 07:59 98.1 68 20 114/63 (80) 96 01/01/20 04:55 97.4 01/01/20 04:00 67 01/01/20 04:00 97.5 70 18 128/56 (80) 98 01/01/20 00:00 62 01/01/20 00:00 97.4 63 18 134/74 (94) 97 12/31/19 21:46 97.3 12/31/19 21:15 71 136/80 12/31/19 21:00 Room Air 12/31/19 20:00 71 12/31/19 20:00 97.3 71 18 136/80 (98) 96 12/31/19 16:00 98.1 72 20 133/77 (95) 96 12/31/19 15:14 74 Intake and Output 12/31/19 01/01/20 19:00 07:00 Intake Total 360 ml Output Total 650 ml Balance 360 ml -650 ml Intake Oral 360 ml Output Urine Total 650 ml # Voids 3 3 # Bowel Movements 1 Objective HEAD AND NECK: No JVD. LUNGS: Clear. CARDIOVASCULAR: Regular S1 and S2 with no gallop or murmur. ABDOMEN: Soft. EXTREMITIES: 1+ pitting edema. Juan Carlos Orosco MD Jan 01, 2020 12:59
[2020-01-01 15:57] VITALS: BP 140/79
[2020-01-01 20:00] VITALS: BP 133/90
--- NOTE | 2020-01-01 20:38 | General Progress Note ---
Subjective ROS Limited/Unobtainable: Yes Allergies: Coded Allergies: MORPHINE (Verified Allergy, Severe, 11/07/10) NITROGLYCERIN (Verified Allergy, Severe, 11/07/10) KETOROLAC (Unverified Allergy, Intermediate, 03/14/14) FISH CONTAINING PRODUCTS (Verified Allergy, Mild, 07/20/14) per patient, "it knocks me out" ACETAMINOPHEN (Unverified Allergy, Unknown, 07/19/14) CODEINE (Unverified Allergy, Unknown, 11/03/13) UNKNOWN DIPHENHYDRAMINE (Unverified Allergy, Unknown, 09/30/14) IBUPROFEN (Unverified Allergy, Unknown, 11/03/13) UNKNOWN PROCHLORPERAZINE (Unverified Allergy, Unknown, 07/19/14) GABAPENTIN (Verified Adverse Reaction, Intermediate, 07/20/14) Per patient, it makes him sweat, throws up, and "blacks out" Uncoded Allergies: IV contrast (Allergy, Unknown, 11/30/19) Objective Last 24 Hour Vital Signs Date Time Temp Pulse Resp B/P (MAP) Pulse Ox O2 Delivery O2 Flow Rate FiO2 01/01/20 15:57 99.1 85 20 140/79 (99) 97 01/01/20 15:12 68 01/01/20 12:00 97.7 78 20 131/81 (98) 96 01/01/20 11:46 79 01/01/20 09:00 Room Air 01/01/20 08:58 68 114/63 01/01/20 08:58 68 114/63 01/01/20 08:27 66 01/01/20 07:59 98.1 68 20 114/63 (80) 96 01/01/20 04:55 97.4 01/01/20 04:00 67 01/01/20 04:00 97.5 70 18 128/56 (80) 98 01/01/20 00:00 62 01/01/20 00:00 97.4 63 18 134/74 (94) 97 12/31/19 21:46 97.3 12/31/19 21:15 71 136/80 12/31/19 21:00 Room Air Intake and Output 12/31/19 01/01/20 19:00 07:00 Intake Total 360 ml Output Total 650 ml Balance 360 ml -650 ml Intake Oral 360 ml Output Urine Total 650 ml # Voids 3 3 # Bowel Movements 1 Height (Feet): 6 Height (Inches): 1.00 Weight (Pounds): 266 Assessment/Plan Problem List: (1) CHF (congestive heart failure) ICD Codes: I50.9 - Heart failure, unspecified SNOMED: 70018055 (2) Extremity pain ICD Codes: M79.609 - Pain in unspecified limb SNOMED: 75359199 (3) Chest pain ICD Codes: R07.9 - Chest pain, unspecified SNOMED: 10409541 (4) Rapid atrial fibrillation ICD Codes: I48.91 - Unspecified atrial fibrillation SNOMED: 751514041 (5) CVA (cerebral vascular accident) ICD Codes: I63.9 - Cerebral infarction, unspecified SNOMED: 017787642 Status: progressing Assessment/Plan: a fib w rvr chronic pain syndrome h/o ablation refusing stress test Rafaela Roy MD Jan 01, 2020 20:38
[2020-01-02] VITALS: BP 124/79
[2020-01-02] MEDS: HYDROmorphone 1mg/ml Carpuject IVP PRN ×3 (00:21→06:29)
[2020-01-02 04:00] VITALS: BP 131/75
--- NOTE | 2020-01-02 09:05 | General Progress Note ---
Subjective Allergies: Coded Allergies: MORPHINE (Verified Allergy, Severe, 11/07/10) NITROGLYCERIN (Verified Allergy, Severe, 11/07/10) KETOROLAC (Unverified Allergy, Intermediate, 03/14/14) FISH CONTAINING PRODUCTS (Verified Allergy, Mild, 07/20/14) per patient, "it knocks me out" ACETAMINOPHEN (Unverified Allergy, Unknown, 07/19/14) CODEINE (Unverified Allergy, Unknown, 11/03/13) UNKNOWN DIPHENHYDRAMINE (Unverified Allergy, Unknown, 09/30/14) IBUPROFEN (Unverified Allergy, Unknown, 11/03/13) UNKNOWN PROCHLORPERAZINE (Unverified Allergy, Unknown, 07/19/14) GABAPENTIN (Verified Adverse Reaction, Intermediate, 07/20/14) Per patient, it makes him sweat, throws up, and "blacks out" Uncoded Allergies: IV contrast (Allergy, Unknown, 11/30/19) Fabiano Loza Jan 02, 2020 09:05
--- NOTE | 2020-01-02 09:24 | Pulmonology Progress Note ---
Subjective ROS Limited/Unobtainable: Yes Interval Events: None new reported Constitutional: Reports: no symptoms HEENT: Repors: no symptoms Respiratory: Reports: no symptoms Cardiovascular: Reports: chest pain Gastrointestinal/Abdominal: Reports: no symptoms Neurologic: Reports: headache Allergies: Coded Allergies: MORPHINE (Verified Allergy, Severe, 11/07/10) NITROGLYCERIN (Verified Allergy, Severe, 11/07/10) KETOROLAC (Unverified Allergy, Intermediate, 03/14/14) FISH CONTAINING PRODUCTS (Verified Allergy, Mild, 07/20/14) per patient, "it knocks me out" ACETAMINOPHEN (Unverified Allergy, Unknown, 07/19/14) CODEINE (Unverified Allergy, Unknown, 11/03/13) UNKNOWN DIPHENHYDRAMINE (Unverified Allergy, Unknown, 09/30/14) IBUPROFEN (Unverified Allergy, Unknown, 11/03/13) UNKNOWN PROCHLORPERAZINE (Unverified Allergy, Unknown, 07/19/14) GABAPENTIN (Verified Adverse Reaction, Intermediate, 07/20/14) Per patient, it makes him sweat, throws up, and "blacks out" Uncoded Allergies: IV contrast (Allergy, Unknown, 11/30/19) Objective Last 24 Hour Vital Signs Date Time Temp Pulse Resp B/P (MAP) Pulse Ox O2 Delivery O2 Flow Rate FiO2 01/02/20 04:00 97.8 74 19 131/75 (93) 98 01/02/20 04:00 67 01/02/20 00:00 68 01/02/20 00:00 97.8 79 19 124/79 (94) 98 01/01/20 21:13 80 133/90 01/01/20 21:00 Room Air 01/01/20 20:00 73 01/01/20 20:00 97.4 77 19 133/90 (104) 96 01/01/20 15:57 99.1 85 20 140/79 (99) 97 01/01/20 15:12 68 01/01/20 12:00 97.7 78 20 131/81 (98) 96 01/01/20 11:46 79 Intake and Output 01/01/20 01/02/20 19:00 07:00 Intake Total 360 ml 500 ml Output Total 800 ml Balance 360 ml -300 ml Intake Oral 360 ml 500 ml Output Urine Total 800 ml # Voids 3 2 HEENT: normocephalic Respiratory: chest wall non-tender, lungs clear Cardiovascular: normal peripheral pulses, normal rate Abdomen: soft, non tender Extremities: no edema Neurologic: oriented x 3 Current Medications Medications (Trade) Dose Ordered Sig/Sheba Route PRN Reason Start Time Stop Time Status Last Admin Dose Admin Acetaminophen/ Hydrocodone Bitart ([place] 5/325) 1 tab Q6H PRN ORAL For mild Pain 12/29/19 08:30 01/05/20 08:29 01/01/20 22:17 Amlodipine Besylate (Norvasc) 2.5 mg DAILY ORAL 12/30/19 09:00 01/29/20 08:59 01/01/20 08:58 Apixaban (Eliquis) 5 mg BID ORAL 12/29/19 09:00 03/28/20 08:59 01/01/20 17:21 Hydromorphone HCl (Dilaudid) 1 mg Q3H PRN IVP severe pain 12/29/19 09:30 01/05/20 09:29 01/02/20 06:29 Metoprolol Tartrate (Lopressor) 50 mg Q12HR ORAL 12/29/19 21:00 03/28/20 20:59 01/01/20 21:13 Regadenoson (Lexiscan) 0.4 mg ONCE PRN IV CARDIOLOGY 12/31/19 15:30 01/03/20 15:29 Assessment/Plan Assessment/Plan IMPRESSION: 1. Atypical chest pain. 2. Rule out ACS. 3. History of atrial fibrillation, on Eliquis. 4. Previous CVA. DISCUSSION: Predominant care per Cardiology. Pain Management notes reviewed. Continue medications. I will follow as prorate clerk. No acute pulmonary intervention required. Roshan Aviles Omar Syed MD Jan 02, 2020 09:24
--- NOTE | 2020-01-04 12:54 | Discharge Summary ---
Discharge Summary Discharge Summary _ DATE OF ADMISSION: 12/29/2019 DATE OF DISCHARGE: 01/02/2020 Patient left AGAINST MEDICAL ADVICE REASON FOR ADMISSION: 74 years old male with past medical history of coronary artery disease, atrial fibrillation, on anticoagulation with Eliquis, thoracic aneurysm, status post repair, CVA, status post mitral valve replacement, presented for chest pain and palpitations. Symptoms started 1 day before. Patient reported rapid and slow heartbeat throughout the day. Palpitations increased at night. He also reported left-sided chest tightness. Chest pain did not radiate. He denied shortness of breath, blackouts, nausea, vomiting or diaphoresis. He denied abdominal pain. nausea vomiting. No fever or chills. No cough or other changes in his health. During previous admission patient declined stress test. He was told by his religion teacher to return to emergency department for admission. Patient recently admitted for ileus. At that time troponin was negative. Upon evaluation vital signs revealed elevated blood pressure 140/110 , otherwise were stable. Laboratory work-up revealed no leukocytosis, stable hemoglobin and hematocrit. Stable electrolytes and renal parameters. Glucose 171. Troponin negative, pro BNP 142 . EKG revealed atrial fibrillation with rapid ventricular response. CT of the head revealed no acute intracranial pathology. In emergency department patient received topical nitroglycerin , started on Cardizem drip . Heart rate stabilized , patient was loaded with oral Cardizem and admitted to telemetry floor for further management. CONSULTANTS: religion teacher neurologist Dr. Art pain specialist Dr. Linn HOSPITAL COURSE: Patient admitted to telemetry floor. Stave Log Cut Off Saw Operator closely followed. Patient converted spontaneously to sinus rhythm. Heart rate was managed with metoprolol , and anticoagulation with Eliquis continued. Serial troponin were negative. EKG revealed no acute ischemic changes. Patient was ruled out for acute myocardial infarction. Last echocardiogram on previous admission revealed ejection fraction of 50%. Patient refused stress test last admission, stating that he was allergic to contrast. Patient declined stress test on this admission as well. CT angio at [facility] in 2018 showed noncritical coronary disease. Supplemental oxygen provided and titrated to keep pulse oximetry above 92%. Pulse oximetry remained stable on room air. Pain management was addressed as per pain specialist recommendation. Patient decided to leave AGAINST MEDICAL ADVICE. The risks and consequences of signing AGAINST MEDICAL ADVICE were discussed with patient in detail. Patient verbalized understanding, nevertheless signed AMA form and left. FINAL DIAGNOSES: Atrial fibrillation with rapid ventricular response CHF Paroxysmal atrial fibrillation, status post ablation, 2017 Atypical chest pain Status post bioprosthetic aortic valve replacement ,2004 Status post descending aortic aneurysm repair , June 2011 Aortic root replacement , January 2013 History of anemia secondary to bleeding ascending colon polyp January 2019 History of CVA Thalamic pain syndrome Osteoarthritis of knee Lumbar postlaminectomy syndrome Hemiplegia, flaccid nondominant side History of total knee replacement I have been assigned to dictate discharge summary for this account. I was not involved in the patient's management. Mable Nicole NP Jan 04, 2020 12:54
== END 2020-01-02 07:45 | disposition left against medical advice (07) | DRG 309 ==
LOC: EMR 02:03 → EDBEDREQ 02:30 → 2E 02:32 → EDBEDREQ 03:41
DX: I48.0 Paroxysmal atrial fibrillation (principal); G81.04 Flaccid hemiplegia affecting left nondominant side; D64.9 Anemia, unspecified; R07.89 Other chest pain; Z86.73 Personal history of transient ischemic attack (TIA), and cerebral infarction without residual deficits; G89.4 Chronic pain syndrome; Z88.6 Allergy status to analgesic agent; Z88.8 Allergy status to other drugs, medicaments and biological substances; Z91.041 Radiographic dye allergy status; Z95.4 Presence of other heart-valve replacement; I25.10 Atherosclerotic heart disease of native coronary artery without angina pectoris; I10 Essential (primary) hypertension; Z79.01 Long term (current) use of anticoagulants; I45.2 Bifascicular block; Z96.659 Presence of unspecified artificial knee joint; G89.0 Central pain syndrome; R51.9 Headache, unspecified; M17.10 Unilateral primary osteoarthritis, unspecified knee; M96.1 Postlaminectomy syndrome, not elsewhere classified; Y83.8 Other surgical procedures as the cause of abnormal reaction of the patient, or of later complication, without mention of misadventure at the time of the procedure
CPT/HCPCS: 36415; 70450; 71045; 80053; 80307; 82248; 83880; 84484; 85025; 85610; 85730; 93005; 96374; 99291

== ENCOUNTER 2020-02-20 14:45 | Inpatient (IN) | payer MEDICARE, MEDICAID ==
[~2020-02-20] VITALS: Ht 185.4 cm; Wt 124.3 kg
[2020-02-20] MEDS ORDERED: Hydromorphone 0.5mg/0.5ml inj IVP ONE (15:15)
[2020-02-20 15:22] LABS: EOSINOPHILS % (AUTO) 1.1 % (0.0-3.0); HEMATOCRIT 42.8 % (42.0-52.0); HEMOGLOBIN 14.9 G/DL (14.2-18.0); MEAN CORPUSCULAR VOLUME 87 FL (80-99); MONOCYTES % (AUTO) 10.7 % (1.0-10.0); NEUTROPHILS % (AUTO) 54.1 % (45.0-75.0); PLATELET COUNT 173 K/UL (150-450); RED CELL DISTRIBUTION WIDTH 14.4 % (11.6-14.8); WHITE BLOOD COUNT 7.4 K/UL (4.8-10.8)
[2020-02-20 15:25] LABS: ANION GAP 9 mmol/L (5-15); BLOOD UREA NITROGEN 11 mg/dL (7-18); CALCIUM 9.3 MG/DL (8.5-10.1); CARBON DIOXIDE 24 MMOL/L (21-32); CHLORIDE 107 MMOL/L (98-107); CREATININE 1.1 MG/DL (0.55-1.30); POTASSIUM 3.9 MMOL/L (3.5-5.1); SODIUM 140 MMOL/L (136-145)
[2020-02-20 15:30] VITALS: BP 155/97
[2020-02-20 15:36] LABS: ALANINE AMINOTRANSFERASE 105 U/L (12-78); ALBUMIN 3.5 G/DL (3.4-5.0); ALBUMIN/GLOBULIN RATIO 0.9 (1.0-2.7); ALKALINE PHOSPHATASE 110 U/L (46-116); ASPARTATE AMINO TRANSFERASE 96 U/L (15-37); BILIRUBIN,TOTAL 1.2 MG/DL (0.2-1.0)
[2020-02-20 15:44] LABS: BILIRUBIN,DIRECT 0.3 MG/DL (0.0-0.3)
[2020-02-20] MEDS ORDERED: ASPIRIN81 MG ORAL (16:07)
--- NOTE | 2020-02-20 16:25 | Diagnostic Imaging Report ---
Procedure: XRAY Chest 1v Reason for study: Chest pain Comparison films: 12/29/2019. FINDINGS: A single one view chest is obtained. Vascularity is normal. The lung sawyer are clear bilaterally. Aorta is within normal limits. Vascular stents again identified in the descending aorta which is tortuous or aneurysmal. CP angles are sharp. The bony thorax appear unremarkable. IMPRESSION: NO ACUTE CARDIOPULMONARY DISEASE.
[2020-02-20] MEDS ORDERED: HYDROmorphone 1mg/ml Carpuject IVP ONE (17:00)
--- NOTE | 2020-02-20 18:29 | Emergency Room Report ---
History of Present Illness General Chief Complaint: Chest Pain Source: Patient, Medical Record Present Illness HPI 74-year-old male presents with chest pain. Brought in by coming from home. Started this morning. Left-sided, dull, 9 out of 10, nonradiating. Denies shortness of breath. Denies cough. Denies fevers or chills. No other aggravating relieving factors. Denies any other associated symptoms Allergies: Coded Allergies: MORPHINE (Verified Allergy, Severe, 11/07/10) NITROGLYCERIN (Verified Allergy, Severe, 11/07/10) KETOROLAC (Unverified Allergy, Intermediate, 03/14/14) FISH CONTAINING PRODUCTS (Verified Allergy, Mild, 07/20/14) per patient, "it knocks me out" ACETAMINOPHEN (Unverified Allergy, Unknown, 07/19/14) CODEINE (Unverified Allergy, Unknown, 11/03/13) UNKNOWN DIPHENHYDRAMINE (Unverified Allergy, Unknown, 09/30/14) IBUPROFEN (Unverified Allergy, Unknown, 11/03/13) UNKNOWN PROCHLORPERAZINE (Unverified Allergy, Unknown, 07/19/14) GABAPENTIN (Verified Adverse Reaction, Intermediate, 07/20/14) Per patient, it makes him sweat, throws up, and "blacks out" Uncoded Allergies: IV contrast (Allergy, Unknown, 11/30/19) COVID-19 Screening Contact w/high risk pt: No Experienced COVID-19 symptoms?: No COVID-19 Testing 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 COVID-19 Screening: Negative COVID-19 COVID-19 Testing Source: [facility] [place] Patient History Past Medical History: none, HTN, CAD Past Surgical History: none Pertinent Family History: none Social History: Denies: smoking, alcohol use, drug use Immunizations: UTD Reviewed Nursing Documentation: PMH: Agreed; PSxH: Agreed Nursing Documentation-PMH Past Medical History: No History, Except For Hx Cardiac Problems: Yes Hx Hypertension: Yes Hx Pacemaker: No Hx Asthma: No Hx COPD: No Hx Diabetes: Yes Hx Cancer: No Hx Gastrointestinal Problems: No Hx Dialysis: No Hx Neurological Problems: Yes Hx Cerebrovascular Accident: Yes Hx Transient Ischemic Attacks: Yes Hx Dementia: No Hx Alzheimer's Disease: No Hx Parkinson's Disease: No Hx Meningitis: No Hx Encephalitis: Yes Hx Seizures: No Hx Epilepsy: No Hx Multiple Sclerosis: No Hx Cerebral Palsy: No Hx Amyotrophic Lat Sclerosis: No Hx Guillian-Mendota Syndrome: No Hx Paralysis: No Hx Peripheral Neuropathy: No Hx Spinal Cord Injury: No Hx Head Trauma: No Hx Traumatic Brain Injury: No Hx Memory Loss: No Hx Concentration Difficulty: No Hx Speech Problem: No Hx Tremors: No Hx Vertigo: No Hx Dizziness: No Hx Syncope: No Hx Headaches: No Hx Aphasia: No Hx Dysphasia: No Hx Numbness: No Hx Weakness: No Hx Fatigue: Yes Hx Neurologic Surgery: No Hx Brain Shunt: No Review of Systems All Other Systems: negative except mentioned in HPI Physical Exam Vital Signs Date Time Temp Pulse Resp B/P (MAP) Pulse Ox O2 Delivery O2 Flow Rate FiO2 02/20/20 15:06 98.4 89 22 133/87 (102) 93 Room Air Sp02 EP Interpretation: reviewed, normal General Appearance: no apparent distress, alert, GCS 15, non-toxic Head: normocephalic, atraumatic Eyes: bilateral eye normal inspection, bilateral eye PERRL ENT: hearing grossly normal, normal pharynx, no angioedema, normal voice Neck: full range of motion, supple/symm/no masses Respiratory: chest non-tender, lungs clear, normal breath sounds, speaking full sentences Cardiovascular #1: regular rate, rhythm, no edema Cardiovascular #2: 2+ carotid (R), 2+ carotid (L), 2+ radial (R), 2+ radial (L), 2+ dorsalis pedis (R), 2+ dorsalis pedis (L) Gastrointestinal: normal bowel sounds, non tender, soft, non-distended, no guarding, no rebound Rectal: deferred Genitourinary: normal inspection, no CVA tenderness Musculoskeletal: back normal, normal range of motion, gait/station normal, non- tender Neurologic: alert, motor strength/tone normal, oriented x3, sensory intact, responsive, speech normal Psychiatric: judgement/insight normal, memory normal, mood/affect normal, no suicidal/homicidal ideation Reflexes: 3+ bicep (R), 3+ bicep (L), 3+ tricep (R), 3+ tricep (L), 3+ knee (R), 3+ knee (L) Lymphatic: no adenopathy Medical Decision Making Diagnostic Impression: Primary Impression: ACS (acute coronary syndrome) ER Course Hospital Course 74-year-old male presents ED complaining of left-sided chest pain Differential diagnoses include: MD/unstable angina, contusion, muscle strain, PTX, rib fracture Clinical course Patient placed on stretcher. on cardiac monitor technician. After initial history and physical I ordered labs, EKG, chest x-ray, dilaudid labs reviewed- no leukocytosis, hb/hct stable, electrolyts ok, trop negative EKG - NSR, PVCS noted no acute ischemic changes interpreted by me Chest x-ray- no acte process Case discussed with Dr. Roy and he agreed to accept the patient to his service for further care and support I. I feel this is a highly complex case requiring extensive working including EKG/Rhythm strip, Xray/CT/US, Blood/urine lab work, repeat exams while in ED, and administration of strong opiates/narcotics for pain control, admission to hospital or close patient follow up. Diagnosis - ACS admitted to telemetry in serious condition Laboratory Tests Test 02/20/20 15:00 White Blood Count 7.4 K/UL (4.8-10.8) Red Blood Count 4.90 M/UL (4.70-6.10) Hemoglobin 14.9 G/DL (14.2-18.0) Hematocrit 42.8 % (42.0-52.0) Mean Corpuscular Volume 87 FL (80-99) Mean Corpuscular Hemoglobin 30.3 PG (27.0-31.0) Mean Corpuscular Hemoglobin Concent 34.8 G/DL (32.0-36.0) Red Cell Distribution Width 14.4 % (11.6-14.8) Platelet Count 173 K/UL (150-450) Mean Platelet Volume 9.4 FL (6.5-10.1) Neutrophils (%) (Auto) 54.1 % (45.0-75.0) Lymphocytes (%) (Auto) 32.0 % (20.0-45.0) Monocytes (%) (Auto) 10.7 % (1.0-10.0) H Eosinophils (%) (Auto) 1.1 % (0.0-3.0) Basophils (%) (Auto) 2.0 % (0.0-2.0) Sodium Level 140 MMOL/L (136-145) Potassium Level 3.9 MMOL/L (3.5-5.1) Chloride Level 107 MMOL/L (98-107) Carbon Dioxide Level 24 MMOL/L (21-32) Anion Gap 9 mmol/L (5-15) Blood Urea Nitrogen 11 mg/dL (7-18) Creatinine 1.1 MG/DL (0.55-1.30) Estimat Glomerular Filtration Rate > 60 mL/min (>60) Glucose Level 102 MG/DL (74-106) Calcium Level 9.3 MG/DL (8.5-10.1) Total Bilirubin 1.2 MG/DL (0.2-1.0) H Direct Bilirubin 0.3 MG/DL (0.0-0.3) Aspartate Amino Transf (AST/SGOT) 96 U/L (15-37) H Alanine Aminotransferase (ALT/SGPT) 105 U/L (12-78) H Alkaline Phosphatase 110 U/L (46-116) Troponin I 0.004 ng/mL (0.000-0.056) Pro-B-Type Natriuretic Peptide 118 pg/mL (0-125) Total Protein 7.5 G/DL (6.4-8.2) Albumin 3.5 G/DL (3.4-5.0) Globulin 4.0 g/dL Albumin/Globulin Ratio 0.9 (1.0-2.7) L EKG Diagnostic Results Troponin ordered: Yes Rate: normal Rhythm: NSR ST Segments: no acute changes ASA given to the pt in ED: No - allergic Rhythm Strip Diag. Results EP Interpretation: yes Rhythm: NSR, no ectopy Chest X-Ray Diagnostic Results Chest X-Ray Diagnostic Results : Chest X-Ray Ordered: Yes # of Views/Limited/Complete: 1 View Indication: Chest Pain EP Interpretation: Yes Interpretation: no consolidation, no effusion, no pneumothorax, no acute cardiopulmonary disease Impression: No acute disease Electronically Signed by: Electronically signed by Sg Villareal MD Last Vital Signs Date Time Temp Pulse Resp B/P (MAP) Pulse Ox O2 Delivery O2 Flow Rate FiO2 02/20/20 18:02 98.7 85 18 141/82 99 Room Air Status: improved Disposition: ADMITTED INPATIENT Condition: Serious Referrals: NOT CHOSEN IPA/,REFERRING (PCP) Sg Villareal MD Feb 20, 2020 18:29
[2020-02-20 20:00] VITALS: BP 147/87
[2020-02-20] MEDS: HYDROmorphone 1mg/ml Carpuject IVP PRN (20:26)
--- NOTE | 2020-02-20 22:10 | General Progress Note ---
Subjective Allergies: Coded Allergies: MORPHINE (Verified Allergy, Severe, 11/07/10) NITROGLYCERIN (Verified Allergy, Severe, 11/07/10) KETOROLAC (Unverified Allergy, Intermediate, 03/14/14) FISH CONTAINING PRODUCTS (Verified Allergy, Mild, 07/20/14) per patient, "it knocks me out" ACETAMINOPHEN (Unverified Allergy, Unknown, 07/19/14) CODEINE (Unverified Allergy, Unknown, 11/03/13) UNKNOWN DIPHENHYDRAMINE (Unverified Allergy, Unknown, 09/30/14) IBUPROFEN (Unverified Allergy, Unknown, 11/03/13) UNKNOWN PROCHLORPERAZINE (Unverified Allergy, Unknown, 07/19/14) GABAPENTIN (Verified Adverse Reaction, Intermediate, 07/20/14) Per patient, it makes him sweat, throws up, and "blacks out" Uncoded Allergies: IV contrast (Allergy, Unknown, 11/30/19) Objective Last 24 Hour Vital Signs Date Time Temp Pulse Resp B/P (MAP) Pulse Ox O2 Delivery O2 Flow Rate FiO2 02/20/20 21:53 Room Air 02/20/20 18:02 98.7 85 18 141/82 99 Room Air 02/20/20 17:28 98.5 02/20/20 15:53 98.5 02/20/20 15:30 98.6 86 18 155/97 100 Room Air 02/20/20 15:30 87 18 Room Air 02/20/20 15:06 98.4 89 22 133/87 (102) 93 Room Air Laboratory Tests 02/20/20 15:00: White Blood Count 7.4, Red Blood Count 4.90, Hemoglobin 14.9, Hematocrit 42.8, Mean Corpuscular Volume 87, Mean Corpuscular Hemoglobin 30.3, Mean Corpuscular Hemoglobin Concent 34.8, Red Cell Distribution Width 14.4, Platelet Count 173, Mean Platelet Volume 9.4, Neutrophils (%) (Auto) 54.1, Lymphocytes (%) (Auto) 32.0, Monocytes (%) (Auto) 10.7H, Eosinophils (%) (Auto) 1.1, Basophils (%) (Auto) 2.0, Sodium Level 140, Potassium Level 3.9, Chloride Level 107, Carbon Dioxide Level 24, Anion Gap 9, Blood Urea Nitrogen 11, Creatinine 1.1, Estimat Glomerular Filtration Rate > 60, Glucose Level 102, Calcium Level 9.3, Total Bilirubin 1.2H, Direct Bilirubin 0.3, Aspartate Amino Transf (AST/SGOT) 96H, Alanine Aminotransferase (ALT/SGPT) 105H, Alkaline Phosphatase 110, Troponin I 0.004, Pro-B-Type Natriuretic Peptide 118, Total Protein 7.5, Albumin 3.5, Globulin 4.0, Albumin/Globulin Ratio 0.9L Height (Feet): 6 Height (Inches): 1.00 Weight (Pounds): 260 Assessment/Plan Assessment/Plan: GI CONSULT ATSP for abnormal LFT labs and imaging ordered Will follow Thank you MD Katherine Murphy Payman MD Feb 20, 2020 22:10
--- NOTE | 2020-02-20 23:45 | Consultation ---
DATE OF CONSULTATION: 02/20/2020 GASTROENTEROLOGY CONSULTATION CONSULTING PHYSICIAN: Chris Murphy MD. CHIEF COMPLAINT: I was asked to see this patient for evaluation of abnormal liver tests. HISTORY OF PRESENT ILLNESS: The patient is a 74-year-old man, who comes into the hospital due to chest pain and torso pain. He denies any history of liver disease or abnormal liver tests. He does not drink alcohol or use drugs. He does however have abnormal liver tests, which were identified in the emergency room, which prompted this consultation. He denies any abdominal pain. No postprandial symptoms. He has not had any previous history of liver disease or abnormal liver tests in the past. PAST MEDICAL HISTORY: Status post open heart surgery for valvular heart disease x2. He has a history of knee surgery, history of back surgery, history of ear surgery, history of hypertension and valvular heart disease, history of atrial fibrillation, history of stroke, congestive heart failure, anxiety, proteinuria, anemia. FAMILY HISTORY: Noncontributory. SOCIAL HISTORY: The patient is single and has no children. He does not smoke or drink alcohol. REVIEW OF SYSTEMS: Otherwise negative. MEDICATIONS: See the chart list for details. PHYSICAL EXAMINATION: GENERAL: Well-developed, well-nourished man, seen in his room HEENT: Normocephalic and atraumatic. Sclerae anicteric. Oropharynx clear. NECK: Supple. CHEST: Clear to auscultation. CARDIOVASCULAR: Revealed regular rate. ABDOMEN: Soft and nondistended. EXTREMITIES: Revealed no edema. LABORATORY DATA: Noted. ASSESSMENT: This patient presents with abnormal liver tests of unclear etiology. Given the patient's body size and likely diagnosis would be fatty liver disease. Alternatively, the patient should be screened for viral disease and therefore, this can be ordered for tomorrow. Likewise the ultrasound of the liver could also be done to rule out any mass, lesions. In the meantime, however, the patient has no symptoms from liver standpoint and therefore they can be managed conservatively. RECOMMENDATIONS: Per above discussion and per orders written in the chart. Thank you for asking me to participate in the care of this patient. Chris Murphy M.D. DR: TIM JOB#: [id number] CC:
[2020-02-21] VITALS: BP 152/79
[2020-02-21] MEDS: HYDROmorphone 1mg/ml Carpuject IVP PRN ×4 (02:39→22:00)
[2020-02-21 04:00] VITALS: BP 158/97
--- NOTE | 2020-02-21 06:40 | General Progress Note ---
Subjective ROS Limited/Unobtainable: Yes Allergies: Coded Allergies: MORPHINE (Verified Allergy, Severe, 11/07/10) NITROGLYCERIN (Verified Allergy, Severe, 11/07/10) KETOROLAC (Unverified Allergy, Intermediate, 03/14/14) FISH CONTAINING PRODUCTS (Verified Allergy, Mild, 07/20/14) per patient, "it knocks me out" ACETAMINOPHEN (Unverified Allergy, Unknown, 07/19/14) CODEINE (Unverified Allergy, Unknown, 11/03/13) UNKNOWN DIPHENHYDRAMINE (Unverified Allergy, Unknown, 09/30/14) IBUPROFEN (Unverified Allergy, Unknown, 11/03/13) UNKNOWN PROCHLORPERAZINE (Unverified Allergy, Unknown, 07/19/14) GABAPENTIN (Verified Adverse Reaction, Intermediate, 07/20/14) Per patient, it makes him sweat, throws up, and "blacks out" Uncoded Allergies: IV contrast (Allergy, Unknown, 11/30/19) Objective Last 24 Hour Vital Signs Date Time Temp Pulse Resp B/P (MAP) Pulse Ox O2 Delivery O2 Flow Rate FiO2 02/21/20 04:00 99.0 74 24 158/97 (117) 96 02/21/20 04:00 88 02/21/20 00:00 87 02/21/20 00:00 99.1 92 20 152/79 (103) 98 02/20/20 21:53 Room Air 02/20/20 20:00 98.5 94 20 147/87 (107) 98 02/20/20 20:00 84 02/20/20 18:02 98.7 85 18 141/82 99 Room Air 02/20/20 17:28 98.5 02/20/20 15:53 98.5 02/20/20 15:30 98.6 86 18 155/97 100 Room Air 02/20/20 15:30 87 18 Room Air 02/20/20 15:06 98.4 89 22 133/87 (102) 93 Room Air Intake and Output 02/20/20 02/21/20 19:00 07:00 Intake Total 300 ml Balance 300 ml Intake Oral 300 ml # Voids 1 2 # Bowel Movements 1 Laboratory Tests 02/20/20 15:00: White Blood Count 7.4, Red Blood Count 4.90, Hemoglobin 14.9, Hematocrit 42.8, Mean Corpuscular Volume 87, Mean Corpuscular Hemoglobin 30.3, Mean Corpuscular Hemoglobin Concent 34.8, Red Cell Distribution Width 14.4, Platelet Count 173, Mean Platelet Volume 9.4, Neutrophils (%) (Auto) 54.1, Lymphocytes (%) (Auto) 32.0, Monocytes (%) (Auto) 10.7H, Eosinophils (%) (Auto) 1.1, Basophils (%) (Auto) 2.0, Sodium Level 140, Potassium Level 3.9, Chloride Level 107, Carbon Di oxide Level 24, Anion Gap 9, Blood Urea Nitrogen 11, Creatinine 1.1, Estimat Glomerular Filtration Rate > 60, Glucose Level 102, Calcium Level 9.3, Total Bilirubin 1.2H, Direct Bilirubin 0.3, Aspartate Amino Transf (AST/SGOT) 96H, Alanine Aminotransferase (ALT/SGPT) 105H, Alkaline Phosphatase 110, Troponin I 0.004, Pro-B-Type Natriuretic Peptide 118, Total Protein 7.5, Albumin 3.5, Globulin 4.0, Albumin/Globulin Ratio 0.9L Height (Feet): 6 Height (Inches): 1.00 Weight (Pounds): 274 General Appearance: no apparent distress EENT: normal ENT inspection Neck: supple Cardiovascular: normal rate Respiratory/Chest: decreased breath sounds Abdomen: normal bowel sounds, non tender, soft Extremities: non-tender Assessment/Plan Problem List: (1) Elevated LFTs ICD Codes: R79.89 - Other specified abnormal findings of blood chemistry SNOMED: 740318135, 735514795 (2) Aortic valve disorder ICD Codes: I35.9 - Nonrheumatic aortic valve disorder, unspecified SNOMED: 0276020 (3) CAD (coronary artery disease) ICD Codes: I25.10 - Athscl heart disease of [place] coronary artery w/o ang pctrs SNOMED: 45506363 (4) HTN (hypertension) ICD Codes: I10 - HTN (hypertension) SNOMED: 81537556 (5) CVA (cerebral vascular accident) ICD Codes: I63.9 - Cerebral infarction, unspecified SNOMED: 935589109 Assessment/Plan: fu abd us repeat LFTS fu viral and AIH serology Andrew Johnson MD Feb 21, 2020 06:40
[2020-02-21 08:00] VITALS: BP 151/86
--- NOTE | 2020-02-21 08:41 | Consultation ---
History of Present Illness General Date patient seen: Feb 21, 2020 Time patient seen: 07:30 - am Chief Complaint: Chest Pain Referring physician: Kirill Reason for Consultation: Pain management Present Illness HPI This is a 74 y/o male seen on the tele floor of [facility]. Patient is a known patient from previous hospital admissions, now admitted under the care of Dr. Roy with continued left sided body pain. Was started on Dialudid 1mg IV Q6H PRN, we were consulted so patient has adequate pain control while here in the hospital. Allergies: Coded Allergies: MORPHINE (Verified Allergy, Severe, 11/07/10) NITROGLYCERIN (Verified Allergy, Severe, 11/07/10) KETOROLAC (Unverified Allergy, Intermediate, 03/14/14) FISH CONTAINING PRODUCTS (Verified Allergy, Mild, 07/20/14) per patient, "it knocks me out" ACETAMINOPHEN (Unverified Allergy, Unknown, 07/19/14) CODEINE (Unverified Allergy, Unknown, 11/03/13) UNKNOWN DIPHENHYDRAMINE (Unverified Allergy, Unknown, 09/30/14) IBUPROFEN (Unverified Allergy, Unknown, 11/03/13) UNKNOWN PROCHLORPERAZINE (Unverified Allergy, Unknown, 07/19/14) GABAPENTIN (Verified Adverse Reaction, Intermediate, 07/20/14) Per patient, it makes him sweat, throws up, and "blacks out" Uncoded Allergies: IV contrast (Allergy, Unknown, 11/30/19) Medication History Scheduled Apixaban (Eliquis*), 5 MG PO BID, (Reported) Aspirin* (Aspirin*), 81 MG ORAL DAILY, (Reported) Felodipine (Felodipine Er), 5 MG PO DAILY, (Reported) Labetalol Hcl* (Normodyne*), 200 MG ORAL TID, (Reported) Discontinued Medications Atenolol* (Tenormin*), 50 MG ORAL BID Discontinued Reason: Pt stopped taking med Hydrochlorothiazide* (Hydrochlorothiazide*), 25 MG ORAL DAILY Discontinued Reason: Pt stopped taking med Zolpidem Tartrate* (Zolpidem Tartrate*), HS PRN for Insomnia, (Reported) Discontinued Reason: Pt stopped taking med Patient History Healthcare decision maker N Resuscitation status Advanced Directive on File Review of Systems ROS Narrative Constitutional: Denies: no symptoms, chills, diaphoresis, fever, malaise, weakness, other HEENT: Denies: no symptoms, eye pain, blurred vision, tearing, double vision, ear pain, ear discharge, nose pain, nose congestion, throat pain, throat swelling, mouth pain, mouth swelling, other Cardiovascular: Denies: no symptoms, chest pain, edema, irregular heart rate, lightheadedness, palpitations, syncope, other Respiratory: Denies: no symptoms, cough, orthopnea, shortness of breath, SOB with excertion, SOB at rest, sputum, stridor, wheezing, other Gastrointestinal/Abdominal: Denies: no symptoms, abdomen distended, abdominal pain, black stools, tarry stools, blood in stool, constipated, diarrhea, difficulty swallowing, nausea, poor appetite, poor fluid intake, rectal bleeding, vomiting, other Genitourinary: Denies: no symptoms, burning, discharge, frequency, flank pain, hematuria, incontinence, pain, urgency, other Neurologic/Psychiatric: Denies: no symptoms, anxiety, depressed, emotional problems, headache, numbness, paresthesia, pre-existing deficit, seizure, tingling, tremors, weakness, other Endocrine: Denies: no symptoms, excessive sweating, flushing, intolerance to cold, intolerance to heat, increased hunger, increased thirst, increased urine, unexplained weight gain, unexplained weight loss, other Hematologic/Lymphatic: Denies: no symptoms, anemia, easy bleeding, easy bruising, other Physical Exam Last 24 Hour Vital Signs Date Time Temp Pulse Resp B/P (MAP) Pulse Ox O2 Delivery O2 Flow Rate FiO2 02/21/20 08:00 97.5 96 20 151/86 (107) 94 02/21/20 04:00 99.0 74 24 158/97 (117) 96 02/21/20 04:00 88 02/21/20 00:00 87 02/21/20 00:00 99.1 92 20 152/79 (103) 98 02/20/20 21:53 Room Air 02/20/20 20:00 98.5 94 20 147/87 (107) 98 02/20/20 20:00 84 02/20/20 18:02 98.7 85 18 141/82 99 Room Air 02/20/20 17:28 98.5 12/8/20 15:53 98.5 02/20/20 15:30 98.6 86 18 155/97 100 Room Air 02/20/20 15:30 87 18 Room Air 02/20/20 15:06 98.4 89 22 133/87 (102) 93 Room Air Intake and Output 02/20/20 02/21/20 19:00 07:00 Intake Total 300 ml Balance 300 ml Intake Oral 300 ml # Voids 1 2 # Bowel Movements 1 Laboratory Tests Test 02/20/20 15:00 02/21/20 07:35 White Blood Count 7.4 K/UL (4.8-10.8) Red Blood Count 4.90 M/UL (4.70-6.10) Hemoglobin 14.9 G/DL (14.2-18.0) Hematocrit 42.8 % (42.0-52.0) Mean Corpuscular Volume 87 FL (80-99) Mean Corpuscular Hemoglobin 30.3 PG (27.0-31.0) Mean Corpuscular Hemoglobin Concent 34.8 G/DL (32.0-36.0) Red Cell Distribution Width 14.4 % (11.6-14.8) Platelet Count 173 K/UL (150-450) Mean Platelet Volume 9.4 FL (6.5-10.1) Neutrophils (%) (Auto) 54.1 % (45.0-75.0) Lymphocytes (%) (Auto) 32.0 % (20.0-45.0) Monocytes (%) (Auto) 10.7 % (1.0-10.0) H Eosinophils (%) (Auto) 1.1 % (0.0-3.0) Basophils (%) (Auto) 2.0 % (0.0-2.0) Sodium Level 140 MMOL/L (136-145) Potassium Level 3.9 MMOL/L (3.5-5.1) Chloride Level 107 MMOL/L (98-107) Carbon Dioxide Level 24 MMOL/L (21-32) Anion Gap 9 mmol/L (5-15) Blood Urea Nitrogen 11 mg/dL (7-18) Creatinine 1.1 MG/DL (0.55-1.30) Estimat Glomerular Filtration Rate > 60 mL/min (>60) Glucose Level 102 MG/DL (74-106) Calcium Level 9.3 MG/DL (8.5-10.1) Total Bilirubin 1.2 MG/DL (0.2-1.0) H Direct Bilirubin 0.3 MG/DL (0.0-0.3) Aspartate Amino Transf (AST/SGOT) 96 U/L (15-37) H Alanine Aminotransferase (ALT/SGPT) 105 U/L (12-78) H Alkaline Phosphatase 110 U/L (46-116) Troponin I 0.004 ng/mL (0.000-0.056) Pending Pro-B-Type Natriuretic Peptide 118 pg/mL (0-125) Total Protein 7.5 G/DL (6.4-8.2) Albumin 3.5 G/DL (3.4-5.0) Globulin 4.0 g/dL Albumin/Globulin Ratio 0.9 (1.0-2.7) L Iron Level Pending Unsaturated Iron Binding Pending Anti-Nuclear Antibody Screen Pending F-Actin IgG Antibody Pending Hepatitis A IgM Antibody Pending Hepatitis B Surface Antigen Pending Hepatitis B Core IgM Antibody Pending Hepatitis C Antibody Pending Height (Feet): 6 Height (Inches): 1.00 Weight (Pounds): 274 Medications Current Medications Medications (Trade) Dose Ordered Sig/Sheba Route PRN Reason Start Time Stop Time Status Last Admin Dose Admin Amlodipine Besylate (Norvasc) 5 mg DAILY ORAL 02/21/20 09:00 03/22/20 08:59 Apixaban (Eliquis) 5 mg BID ORAL 02/21/20 09:00 05/21/20 08:59 Aspirin (ASA) 81 mg DAILY ORAL 02/21/20 09:00 04/06/20 08:59 Hydromorphone HCl (Dilaudid) 1 mg Q6H PRN IVP Severe Pain (Pain Scale 7-10) 02/20/20 20:15 02/27/20 20:14 02/21/20 02:39 Labetalol HCl (Normodyne) 200 mg TID ORAL 02/21/20 09:00 03/22/20 08:59 Assessment/Plan Assessment/Plan: (1) Hemiplegia, flaccid, nondominant side (2) Lumbar post-laminectomy syndrome (3) HO TKR (total knee replacement) (4) OA (osteoarthritis) of knee (5) Thalamic pain syndrome (6) CVA (cerebral vascular accident) We will continue the patient on Dilaudid D/w Dr. Linn and he concurred. Fabiano Loza Feb 21, 2020 08:41
[2020-02-21 08:58] LABS: % IRON SATURATION 17 % (15-50); IRON 41 ug/dL (50-175); TOTAL IRON BINDING CAPACITY 247 ug/dL (250-450)
[2020-02-21] MEDS: Eliquis 5mg tablet ORAL SCH ×2 (09:04→17:05)
[2020-02-21] MEDS: Aspirin Baby 81mg ORAL SCH (09:04)
--- NOTE | 2020-02-21 09:50 | Cardiac Electrophysiology PN ---
Subjective Subjective Well known to me. New consult dictated 1. Paroxysmal atrial fibrillation, status post ablation in 2018 at [facility], currently in sinus rhythm. On Metoprolol 50 mg bid and Eliquis 2. Chest pain. Patient's CT angio at [facility] in 2018 showed noncritical coronary disease and EKG does not show any acute ischemic changes. EF of 50%. Patient refused stress test last admission last 2 admissions as he stated he is allergic to Contrast. 3. Status post bioprosthetic aortic valve replacement in 2004. 4. Status post descending aortic aneurysm repair in June 2011. 5. Aortic root replacement in January 2013. 6. History of anemia secondary to bleeding ascending colon polyp in January 2019. Objective Last 24 Hour Vital Signs Date Time Temp Pulse Resp B/P (MAP) Pulse Ox O2 Delivery O2 Flow Rate FiO2 02/21/20 09:05 96 151/86 02/21/20 09:05 96 151/86 02/21/20 08:00 97.5 96 20 151/86 (107) 94 02/21/20 04:00 99.0 74 24 158/97 (117) 96 02/21/20 04:00 88 02/21/20 00:00 87 02/21/20 00:00 99.1 92 20 152/79 (103) 98 02/20/20 21:53 Room Air 02/20/20 20:00 98.5 94 20 147/87 (107) 98 02/20/20 20:00 84 02/20/20 18:02 98.7 85 18 141/82 99 Room Air 02/20/20 17:28 98.5 02/20/20 15:53 98.5 02/20/20 15:30 98.6 86 18 155/97 100 Room Air 02/20/20 15:30 87 18 Room Air 02/20/20 15:06 98.4 89 22 133/87 (102) 93 Room Air Intake and Output 02/20/20 02/21/20 19:00 07:00 Intake Total 300 ml Balance 300 ml Intake Oral 300 ml # Voids 1 2 # Bowel Movements 1 Laboratory Tests Test 02/20/20 15:00 02/21/20 07:35 White Blood Count 7.4 K/UL (4.8-10.8) Red Blood Count 4.90 M/UL (4.70-6.10) Hemoglobin 14.9 G/DL (14.2-18.0) Hematocrit 42.8 % (42.0-52.0) Mean Corpuscular Volume 87 FL (80-99) Mean Corpuscular Hemoglobin 30.3 PG (27.0-31.0) Mean Corpuscular Hemoglobin Concent 34.8 G/DL (32.0-36.0) Red Cell Distribution Width 14.4 % (11.6-14.8) Platelet Count 173 K/UL (150-450) Mean Platelet Volume 9.4 FL (6.5-10.1) Neutrophils (%) (Auto) 54.1 % (45.0-75.0) Lymphocytes (%) (Auto) 32.0 % (20.0-45.0) Monocytes (%) (Auto) 10.7 % (1.0-10.0) H Eosinophils (%) (Auto) 1.1 % (0.0-3.0) Basophils (%) (Auto) 2.0 % (0.0-2.0) Sodium Level 140 MMOL/L (136-145) Potassium Level 3.9 MMOL/L (3.5-5.1) Chloride Level 107 MMOL/L (98-107) Carbon Dioxide Level 24 MMOL/L (21-32) Anion Gap 9 mmol/L (5-15) Blood Urea Nitrogen 11 mg/dL (7-18) Creatinine 1.1 MG/DL (0.55-1.30) Estimat Glomerular Filtration Rate > 60 mL/min (>60) Glucose Level 102 MG/DL (74-106) Calcium Level 9.3 MG/DL (8.5-10.1) Total Bilirubin 1.2 MG/DL (0.2-1.0) H Direct Bilirubin 0.3 MG/DL (0.0-0.3) Aspartate Amino Transf (AST/SGOT) 96 U/L (15-37) H Alanine Aminotransferase (ALT/SGPT) 105 U/L (12-78) H Alkaline Phosphatase 110 U/L (46-116) Troponin I 0.004 ng/mL (0.000-0.056) 0.007 ng/mL (0.000-0.056) Pro-B-Type Natriuretic Peptide 118 pg/mL (0-125) Total Protein 7.5 G/DL (6.4-8.2) Albumin 3.5 G/DL (3.4-5.0) Globulin 4.0 g/dL Albumin/Globulin Ratio 0.9 (1.0-2.7) L Iron Level 41 ug/dL (50-175) L Total Iron Binding Capacity 247 ug/dL (250-450) L Percent Iron Saturation 17 % (15-50) Unsaturated Iron Binding 206 ug/dL (112-346) Anti-Nuclear Antibody Screen Pending F-Actin IgG Antibody Pending Hepatitis A IgM Antibody Pending Hepatitis B Surface Antigen Pending Hepatitis B Core IgM Antibody Pending Hepatitis C Antibody Pending Juan Carlos Orosco MD Feb 21, 2020 09:50
[2020-02-21] MEDS ORDERED: Lexiscan 0.4mg/5ml syringe IV PRN (10:02)
[2020-02-21 12:00] VITALS: BP 127/79
[2020-02-21 15:55] VITALS: BP 119/74
--- NOTE | 2020-02-21 16:24 | Diagnostic Imaging Report ---
ABDOMINAL ULTRASOUND - COMPLETE INDICATION: Abdominal pain. TECHNIQUE: Multiplanar ultrasound examination of the abdomen with greyscale and doppler imaging. COMPARISON: CT chest dated 08/27/2018; abdominal ultrasound dated 11/27/2019; renal ultrasound dated 12/25/2019; CT abdomen pelvis dated 12/23/2019 FINDINGS: Liver: The liver is normal in size and demonstrates diffusely increased echogenicity. No focal abnormalities are noted. Gallbladder: Not visualized, and may be contracted or surgically absent. Common bile duct: Normal in size. Pancreas: The visualized portion of pancreas is normal in appearance. Kidneys: The kidneys are normal in size and echogenicity. There is no hydronephrosis. Left renal cysts are noted. Spleen: The spleen is normal in size and echogenicity. Aorta: The aorta is normal in caliber. IMPRESSION: 1. Nonvisualized gallbladder. 2. Hepatic steatosis.
--- NOTE | 2020-02-21 16:45 | Consultation ---
DATE OF CONSULTATION: 02/21/2020 CARDIOLOGY CONSULTATION CONSULTING PHYSICIAN: Juan Carlos Orosco MD REFERRING PHYSICIAN: Rafaela Roy MD REASON FOR CONSULTATION: Chest pain. HISTORY OF PRESENT ILLNESS: The patient is a 74-year-old gentleman with history of hypertension, aortic valve replacement, and history of atrial fibrillation status post ablation as well as subsequent multiple hospitalization with chest pain for which he has been ruled out for OH. He also had refused stress test twice in the last two admissions. The patient presented to the emergency room again with chest pain with radiation to the left arm as well as radiation to the abdomen. The patient states he is allergic to morphine, ketorolac, and codeine and specifically asked for Dilaudid, which be considered every 3 hours. The patient again was ruled out for myocardial infarction by two cardiac enzymes. At the time of my evaluation, he still complains of chest and abdominal pain. REVIEW OF SYSTEMS: Negative other than what is mentioned in the history of present illness. PAST MEDICAL HISTORY: As mentioned above. FAMILY HISTORY: Noncontributory. SOCIAL HISTORY: He lives at home. Does not smoke or drink alcohol. PHYSICAL EXAMINATION: VITAL SIGNS: Show blood pressure of 151/86, pulse 96, respirations 18, temperature 97.5. HEAD AND NECK: Showed no JVD. LUNGS: Coarse rhonchi. CARDIOVASCULAR: Regular S1 and S2 with no gallop. ABDOMEN: Soft. EXTREMITIES: No pitting edema. LABORATORY AND DIAGNOSTIC DATA: His EKG showed ectopic atrial rhythm with negative T-wave in leads II, III, and aVF; LVH; and occasional PVCs. Labs show white count of 7.4, hemoglobin of 14.9, hematocrit of 42.8, and platelet count of 173,000. Sodium is 140, potassium 3.9, BUN of 11, creatinine 1.1, glucose of 102. Troponin negative x2. ASSESSMENT AND PLAN: 1. Chest pain, the pain is atypical. The patient already ruled out for myocardial infarction by serial cardiac enzymes. His EKG is nonischemic. He has refused stress test twice in the past in the last two admissions. We will try to reschedule the stress test. It is of note, the patient has had CT angio at [facility] in 2018 that showed noncritical coronary artery disease. His last ejection fraction was 50%. 2. Paroxysmal atrial fibrillation, status post ablation at [facility] in 2018. He remained in sinus rhythm, on metoprolol 50 b.i.d. and Eliquis. 3. Status post bioprosthetic aortic valve replacement in 2004. 4. Status post descending aortic aneurysm repair in 2011. 5. Status post aortic root replacement in 2012. 6. History of anemia due to ascending colon polyp in 2018. 7. Hypertension. Continue metoprolol 50 mg b.i.d., but the patient's medication has been changed to labetalol 200 mg three times daily as well as Norvasc 5 mg daily, might have been changed as an outpatient. Thank you very much for allowing me to participate in the care of this patient. Please do not hesitate to contact me for any questions regarding my evaluation. Juan Carlos Orosco M.D. DR: Riky JOB#: [id number] CC:
--- NOTE | 2020-02-21 19:15 | History and Physical Report ---
DATE OF ADMISSION: 02/20/2020 HISTORY OF PRESENT ILLNESS: Patient admitted for chest pain, rule out acute coronary syndrome. Patient has frequent readmissions. Denies cough. Denies shortness of breath. Denies fever or chills. Denies sore throat. Denies headache. Reports back pain and generalized pain as well. Patient has chronic pain syndrome. Denies vomiting. Denies any respiratory symptoms. PAST MEDICAL HISTORY: Hypertension, CAD, diabetes, history of CVA, CHF, encephalopathy. PAST SURGICAL HISTORY: CABG x2, aortic valve replacement, left hip ORIF, laminectomy, left knee replacement, aortic aneurysm repair. MEDICATIONS: Eliquis, aspirin, felodipine, labetalol. ALLERGIES: Acetaminophen, diphenhydramine, fish, gabapentin, ibuprofen, contrast, NSAIDs, nitroglycerin, . FAMILY HISTORY: Noncontributory. REVIEW OF SYSTEMS: HEENT: Denies headaches. RESPIRATORY: Denies shortness of breath. Denies cough. CARDIOVASCULAR: Reports chest pain for two days. No radiation. No orthopnea. No palpitation. GASTROINTESTINAL: Denies nausea, vomiting, or diarrhea. EXTREMITIES: Reports back pain and generalized pain. CENTRAL NERVOUS SYSTEM: Denies change in speech pattern. Feels weak. PHYSICAL EXAMINATION: VITAL SIGNS: Temperature 97.9, pulse is 93, blood pressure is 127/79. HEENT: PERRLA. NECK: Supple. No lymphadenopathy. CHEST: Clear to auscultation. CARDIOVASCULAR: Irregularly irregular. Has murmur, which is chronic. GASTROINTESTINAL: Soft, nontender, nondistended. No organomegaly. EXTREMITIES: 1+ edema. He is able to move his extremities. Has generalized weakness. Reflexes on both sides. Dorsal pedis pulses are present. LABORATORY DATA: WBC of 7.4, hemoglobin of 14.9, platelets 173. Sodium 140, potassium 3.9, BUN of 11, creatinine 1.1, glucose of 101. ASSESSMENT AND PLAN: Chest pain, rule out acute coronary syndrome, elevated LFTs. I have consulted Dr. Orosco, , Dr. Murphy to manage and help with the finding of patient's elevated LFTs as well as for chronic pain syndrome as well as to rule out acute coronary syndrome. Dr. Orosco is the black ash burner operator on the case. Rafaela Roy M.D. DR: JAVED JOB#: [id number] CC:
[2020-02-21 20:00] VITALS: BP 121/74
[2020-02-22] VITALS: BP 112/71
[2020-02-22 04:00] VITALS: BP 122/73
[2020-02-22] MEDS: HYDROmorphone 1mg/ml Carpuject IVP PRN ×4 (04:12→22:15)
[2020-02-22 07:42] LABS: BASOPHILS % (AUTO) 1.4 % (0.0-2.0); EOSINOPHILS % (AUTO) 3.3 % (0.0-3.0); HEMATOCRIT 37.9 % (42.0-52.0); LYMPHOCYTES % (AUTO) 37.3 % (20.0-45.0); MEAN CORPUSCULAR VOLUME 89 FL (80-99); MONOCYTES % (AUTO) 10.8 % (1.0-10.0); NEUTROPHILS % (AUTO) 47.2 % (45.0-75.0); PLATELET COUNT 146 K/UL (150-450); RED BLOOD COUNT 4.26 M/UL (4.70-6.10); RED CELL DISTRIBUTION WIDTH 13.3 % (11.6-14.8); WHITE BLOOD COUNT 6.2 K/UL (4.8-10.8)
[2020-02-22 08:00] VITALS: BP 137/89
[2020-02-22 08:17] LABS: ALANINE AMINOTRANSFERASE 105 U/L (12-78); ALBUMIN/GLOBULIN RATIO 0.9 (1.0-2.7); ALKALINE PHOSPHATASE 101 U/L (46-116); ANION GAP 9 mmol/L (5-15); ASPARTATE AMINO TRANSFERASE 72 U/L (15-37); BILIRUBIN,TOTAL 0.9 MG/DL (0.2-1.0); BLOOD UREA NITROGEN 9 mg/dL (7-18); CALCIUM 8.4 MG/DL (8.5-10.1); CARBON DIOXIDE 23 MMOL/L (21-32); CHLORIDE 109 MMOL/L (98-107); CREATININE 0.9 MG/DL (0.55-1.30); POTASSIUM 3.6 MMOL/L (3.5-5.1); SODIUM 141 MMOL/L (136-145)
[2020-02-22] MEDS: Aspirin Baby 81mg ORAL SCH (08:19)
[2020-02-22] MEDS: Eliquis 5mg tablet ORAL SCH ×2 (08:20→17:40)
--- NOTE | 2020-02-22 08:26 | General Progress Note ---
Subjective ROS Limited/Unobtainable: Yes Allergies: Coded Allergies: MORPHINE (Verified Allergy, Severe, 11/07/10) NITROGLYCERIN (Verified Allergy, Severe, 11/07/10) KETOROLAC (Unverified Allergy, Intermediate, 03/14/14) FISH CONTAINING PRODUCTS (Verified Allergy, Mild, 07/20/14) per patient, "it knocks me out" ACETAMINOPHEN (Unverified Allergy, Unknown, 07/19/14) CODEINE (Unverified Allergy, Unknown, 11/03/13) UNKNOWN DIPHENHYDRAMINE (Unverified Allergy, Unknown, 09/30/14) IBUPROFEN (Unverified Allergy, Unknown, 11/03/13) UNKNOWN PROCHLORPERAZINE (Unverified Allergy, Unknown, 07/19/14) GABAPENTIN (Verified Adverse Reaction, Intermediate, 07/20/14) Per patient, it makes him sweat, throws up, and "blacks out" Uncoded Allergies: IV contrast (Allergy, Unknown, 11/30/19) Objective Last 24 Hour Vital Signs Date Time Temp Pulse Resp B/P (MAP) Pulse Ox O2 Delivery O2 Flow Rate FiO2 02/22/20 08:20 76 137/89 02/22/20 08:20 76 137/89 02/22/20 08:00 97.2 76 20 137/89 (105) 93 02/22/20 04:42 98.0 02/22/20 04:00 97.9 75 18 122/73 (89) 96 02/22/20 04:00 74 02/22/20 00:00 78 02/22/20 00:00 98.0 85 20 112/71 (85) 96 02/21/20 22:36 96.1 02/21/20 21:00 Room Air 02/21/20 20:00 76 02/21/20 20:00 97.0 75 20 121/74 (90) 96 02/21/20 17:05 88 119/74 02/21/20 15:55 96.1 88 20 119/74 (89) 99 02/21/20 15:25 74 02/21/20 12:14 93 127/79 02/21/20 12:00 97.9 93 20 127/79 (95) 96 02/21/20 11:44 78 02/21/20 09:05 96 151/86 02/21/20 09:05 96 151/86 02/21/20 09:00 Room Air Intake and Output 02/21/20 02/22/20 19:00 07:00 Intake Total 990 ml Output Total 1700 ml 600 ml Balance -710 ml -600 ml Intake Oral 990 ml Output Urine Total 1700 ml 600 ml # Bowel Movements 1 1 Laboratory Tests 02/22/20 06:38: White Blood Count 6.2, Red Blood Count 4.26L, Hemoglobin 13.0L, Hematocrit 37.9L , Mean Corpuscular Volume 89, Mean Corpuscular Hemoglobin 30.5, Mean Corpuscular Hemoglobin Concent 34.3, Red Cell Distribution Width 13.3, Platelet Count 146L, Mean Platelet Volume 9.3, Neutrophils (%) (Auto) 47.2, Lymphocytes (%) (Auto) 37.3, Monocytes (%) (Auto) 10.8H, Eosinophils (%) (Auto) 3.3H, Basophils (%) (Auto) 1.4, Sodium Level 141, Potassium Level 3.6, Chloride Level 109H, Carbon Dioxide Level 23, Anion Gap 9, Blood Urea Nitrogen 9, Creatinine 0.9, Estimat Glomerular Filtration Rate > 60, Glucose Level 104, Calcium Level 8.4L, Total Bilirubin 0.9, Aspartate Amino Transf (AST/SGOT) 72H, Alanine Aminotransferase (ALT/SGPT) 105H, Alkaline Phosphatase 101, Troponin I [Pending], Total Protein 6.5, Albumin 3.0L, Globulin 3.5, Albumin/Globulin Ratio 0.9L Height (Feet): 6 Height (Inches): 1.00 Weight (Pounds): 274 General Appearance: no apparent distress EENT: normal ENT inspection Neck: supple Cardiovascular: normal rate Respiratory/Chest: accessory muscle use Abdomen: normal bowel sounds, non tender, soft Extremities: non-tender Assessment/Plan Problem List: (1) Elevated LFTs ICD Codes: R79.89 - Other specified abnormal findings of blood chemistry SNOMED: 564452362, 835223573 (2) Aortic valve disorder ICD Codes: I35.9 - Nonrheumatic aortic valve disorder, unspecified SNOMED: 7819791 (3) CAD (coronary artery disease) ICD Codes: I25.10 - Athscl heart disease of [place] coronary artery w/o ang pctrs SNOMED: 97509357 (4) HTN (hypertension) ICD Codes: I10 - HTN (hypertension) SNOMED: 18619107 (5) CVA (cerebral vascular accident) ICD Codes: I63.9 - Cerebral infarction, unspecified SNOMED: 524729681 Assessment/Plan: fu abd us>> fatty liver repeat LFTS>>> improving fu viral and AIH serology Andrew Johnson MD Feb 22, 2020 08:26
--- NOTE | 2020-02-22 08:54 | General Progress Note ---
Subjective Date patient seen: Feb 22, 2020 Time patient seen: 07:30 - am Allergies: Coded Allergies: MORPHINE (Verified Allergy, Severe, 11/07/10) NITROGLYCERIN (Verified Allergy, Severe, 11/07/10) KETOROLAC (Unverified Allergy, Intermediate, 03/14/14) FISH CONTAINING PRODUCTS (Verified Allergy, Mild, 07/20/14) per patient, "it knocks me out" ACETAMINOPHEN (Unverified Allergy, Unknown, 07/19/14) CODEINE (Unverified Allergy, Unknown, 11/03/13) UNKNOWN DIPHENHYDRAMINE (Unverified Allergy, Unknown, 09/30/14) IBUPROFEN (Unverified Allergy, Unknown, 11/03/13) UNKNOWN PROCHLORPERAZINE (Unverified Allergy, Unknown, 07/19/14) GABAPENTIN (Verified Adverse Reaction, Intermediate, 07/20/14) Per patient, it makes him sweat, throws up, and "blacks out" Uncoded Allergies: IV contrast (Allergy, Unknown, 11/30/19) Subjective Constitutional: Denies: no symptoms, chills, diaphoresis, fever, malaise, weakness, other HEENT: Denies: no symptoms, eye pain, blurred vision, tearing, double vision, ear pain, ear discharge, nose pain, nose congestion, throat pain, throat swelling, mouth pain, mouth swelling, other Cardiovascular: Denies: no symptoms, chest pain, edema, irregular heart rate, lightheadedness, palpitations, syncope, other Respiratory: Denies: no symptoms, cough, orthopnea, shortness of breath, SOB with excertion, SOB at rest, sputum, stridor, wheezing, other Gastrointestinal/Abdominal: Denies: no symptoms, abdomen distended, abdominal pain, black stools, tarry stools, blood in stool, constipated, diarrhea, dif ficulty swallowing, nausea, poor appetite, poor fluid intake, rectal bleeding, vomiting, other Genitourinary: Denies: no symptoms, burning, discharge, frequency, flank pain, hematuria, incontinence, pain, urgency, other Neurologic/Psychiatric: Denies: no symptoms, anxiety, depressed, emotional problems, headache, numbness, paresthesia, pre-existing deficit, seizure, tingling, tremors, weakness, other Endocrine: Denies: no symptoms, excessive sweating, flushing, intolerance to cold, intolerance to heat, increased hunger, increased thirst, increased urine, unexplained weight gain, unexplained weight loss, other Hematologic/Lymphatic: Denies: no symptoms, anemia, easy bleeding, easy bruising, other This is a 74 y/o male seen on the tele floor of [facility]. Patient resting in bed continues to c/o pain which has been tolerated on 4 doses of Dilaudid in the last 24hrs. He has no new complaints at this time. Objective Last 24 Hour Vital Signs Date Time Temp Pulse Resp B/P (MAP) Pulse Ox O2 Delivery O2 Flow Rate FiO2 02/22/20 08:20 76 137/89 02/22/20 08:20 76 137/89 02/22/20 08:00 97.2 76 20 137/89 (105) 93 02/22/20 04:42 98.0 02/22/20 04:00 97.9 75 18 122/73 (89) 96 02/22/20 04:00 74 02/22/20 00:00 78 02/22/20 00:00 98.0 85 20 112/71 (85) 96 02/21/20 22:36 96.1 02/21/20 21:00 Room Air 02/21/20 20:00 76 02/21/20 20:00 97.0 75 20 121/74 (90) 96 02/21/20 17:05 88 119/74 02/21/20 15:55 96.1 88 20 119/74 (89) 99 02/21/20 15:25 74 02/21/20 12:14 93 127/79 02/21/20 12:00 97.9 93 20 127/79 (95) 96 02/21/20 11:44 78 02/21/20 09:05 96 151/86 02/21/20 09:05 96 151/86 02/21/20 09:00 Room Air Intake and Output 02/21/20 02/22/20 19:00 07:00 Intake Total 990 ml Output Total 1700 ml 600 ml Balance -710 ml -600 ml Intake Oral 990 ml Output Urine Total 1700 ml 600 ml # Bowel Movements 1 1 Laboratory Tests 02/22/20 06:38: White Blood Count 6.2, Red Blood Count 4.26L, Hemoglobin 13.0L, Hematocrit 37.9L , Mean Corpuscular Volume 89, Mean Corpuscular Hemoglobin 30.5, Mean Corpuscular Hemoglobin Concent 34.3, Red Cell Distribution Width 13.3, Platelet Count 146L, Mean Platelet Volume 9.3, Neutrophils (%) (Auto) 47.2, Lymphocytes (%) (Auto) 37.3, Monocytes (%) (Auto) 10.8H, Eosinophils (%) (Auto) 3.3H, Basophils (%) (Auto) 1.4, Sodium Level 141, Potassium Level 3.6, Chloride Level 109H, Carbon Dioxide Level 23, Anion Gap 9, Blood Urea Nitrogen 9, Creatinine 0.9, Estimat Glomerular Filtration Rate > 60, Glucose Level 104, Calcium Level 8.4L, Total Bilirubin 0.9, Aspartate Amino Transf (AST/SGOT) 72H, Alanine Aminotransferase (ALT/SGPT) 105H, Alkaline Phosphatase 101, Troponin I [Pending], Total Protein 6.5, Albumin 3.0L, Globulin 3.5, Albumin/Globulin Ratio 0.9L Height (Feet): 6 Height (Inches): 1.00 Weight (Pounds): 274 Objective General Appearance: no apparent distress, alert EENT: PERRL/EOMI, TMs normal Neck: non-tender, normal alignment, supple Cardiovascular: normal rate, regular rhythm Respiratory/Chest: chest wall non-tender, lungs clear Abdomen: non tender, soft Extremities: non-tender Edema: no edema noted Arm (L), no edema noted Arm (R), no edema noted Leg (L), no edema noted Leg (R), no edema noted Pedal (L), no edema noted Pedal (R), no edema noted Generalized Neurologic: alert, oriented x 3 Skin: normal pigmentation Assessment/Plan Assessment/Plan: (1) Hemiplegia, flaccid, nondominant side (2) Lumbar post-laminectomy syndrome (3) HO TKR (total knee replacement) (4) OA (osteoarthritis) of knee (5) Thalamic pain syndrome (6) CVA (cerebral vascular accident) We will continue the patient on Dilaudid D/w Dr. Linn and he concurred. Fabiano Loza Feb 22, 2020 08:54
--- NOTE | 2020-02-22 09:51 | Cardiac Electrophysiology PN ---
Assessment/Plan Assessment/Plan 1. Paroxysmal atrial fibrillation, status post ablation in 2018 at [facility], currently in sinus rhythm. On Metoprolol 50 mg bid and Eliquis 2. Chest pain. Patient's CT angio at [facility] in 2018 showed noncritical coronary disease and EKG does not show any acute ischemic changes. EF of 50%. Patient refused stress test last admission last 2 admissions as he stated he is allergic to Contrast. Getting it done today! 3. Status post bioprosthetic aortic valve replacement in 2004. 4. Status post descending aortic aneurysm repair in June 2011. 5. Aortic root replacement in January 2013. 6. History of anemia secondary to bleeding ascending colon polyp in January 2019. Subjective Subjective Getting stress test done. In SR Objective Last 24 Hour Vital Signs Date Time Temp Pulse Resp B/P (MAP) Pulse Ox O2 Delivery O2 Flow Rate FiO2 02/22/20 08:20 76 137/89 02/22/20 08:20 76 137/89 02/22/20 08:00 77 02/22/20 08:00 97.2 76 20 137/89 (105) 93 02/22/20 04:42 98.0 02/22/20 04:00 97.9 75 18 122/73 (89) 96 02/22/20 04:00 74 02/22/20 00:00 78 02/22/20 00:00 98.0 85 20 112/71 (85) 96 02/21/20 22:36 96.1 02/21/20 21:00 Room Air 02/21/20 20:00 76 02/21/20 20:00 97.0 75 20 121/74 (90) 96 02/21/20 17:05 88 119/74 02/21/20 15:55 96.1 88 20 119/74 (89) 99 02/21/20 15:25 74 02/21/20 12:14 93 127/79 02/21/20 12:00 97.9 93 20 127/79 (95) 96 02/21/20 11:44 78 Intake and Output 02/21/20 02/22/20 19:00 07:00 Intake Total 990 ml Output Total 1700 ml 600 ml Balance -710 ml -600 ml Intake Oral 990 ml Output Urine Total 1700 ml 600 ml # Bowel Movements 1 1 Laboratory Tests Test 02/22/20 06:38 White Blood Count 6.2 K/UL (4.8-10.8) Red Blood Count 4.26 M/UL (4.70-6.10) L Hemoglobin 13.0 G/DL (14.2-18.0) L Hematocrit 37.9 % (42.0-52.0) L Mean Corpuscular Volume 89 FL (80-99) Mean Corpuscular Hemoglobin 30.5 PG (27.0-31.0) Mean Corpuscular Hemoglobin Concent 34.3 G/DL (32.0-36.0) Red Cell Distribution Width 13.3 % (11.6-14.8) Platelet Count 146 K/UL (150-450) L Mean Platelet Volume 9.3 FL (6.5-10.1) Neutrophils (%) (Auto) 47.2 % (45.0-75.0) Lymphocytes (%) (Auto) 37.3 % (20.0-45.0) Monocytes (%) (Auto) 10.8 % (1.0-10.0) H Eosinophils (%) (Auto) 3.3 % (0.0-3.0) H Basophils (%) (Auto) 1.4 % (0.0-2.0) Sodium Level 141 MMOL/L (136-145) Potassium Level 3.6 MMOL/L (3.5-5.1) Chloride Level 109 MMOL/L (98-107) H Carbon Dioxide Level 23 MMOL/L (21-32) Anion Gap 9 mmol/L (5-15) Blood Urea Nitrogen 9 mg/dL (7-18) Creatinine 0.9 MG/DL (0.55-1.30) Estimat Glomerular Filtration Rate > 60 mL/min (>60) Glucose Level 104 MG/DL (74-106) Calcium Level 8.4 MG/DL (8.5-10.1) L Total Bilirubin 0.9 MG/DL (0.2-1.0) Aspartate Amino Transf (AST/SGOT) 72 U/L (15-37) H Alanine Aminotransferase (ALT/SGPT) 105 U/L (12-78) H Alkaline Phosphatase 101 U/L (46-116) Troponin I 0.003 ng/mL (0.000-0.056) Total Protein 6.5 G/DL (6.4-8.2) Albumin 3.0 G/DL (3.4-5.0) L Globulin 3.5 g/dL Albumin/Globulin Ratio 0.9 (1.0-2.7) L Objective HEAD AND NECK: Showed no JVD. LUNGS: Coarse rhonchi. CARDIOVASCULAR: Regular S1 and S2 with no gallop. ABDOMEN: Soft. EXTREMITIES: No pitting edema. Juan Carlos Orosco MD Feb 22, 2020 09:51
[2020-02-22 12:00] VITALS: BP 128/83
--- NOTE | 2020-02-22 12:35 | General Progress Note ---
Subjective ROS Limited/Unobtainable: Yes Allergies: Coded Allergies: MORPHINE (Verified Allergy, Severe, 11/07/10) NITROGLYCERIN (Verified Allergy, Severe, 11/07/10) KETOROLAC (Unverified Allergy, Intermediate, 03/14/14) FISH CONTAINING PRODUCTS (Verified Allergy, Mild, 07/20/14) per patient, "it knocks me out" ACETAMINOPHEN (Unverified Allergy, Unknown, 07/19/14) CODEINE (Unverified Allergy, Unknown, 11/03/13) UNKNOWN DIPHENHYDRAMINE (Unverified Allergy, Unknown, 09/30/14) IBUPROFEN (Unverified Allergy, Unknown, 11/03/13) UNKNOWN PROCHLORPERAZINE (Unverified Allergy, Unknown, 07/19/14) GABAPENTIN (Verified Adverse Reaction, Intermediate, 07/20/14) Per patient, it makes him sweat, throws up, and "blacks out" Uncoded Allergies: IV contrast (Allergy, Unknown, 11/30/19) Objective Last 24 Hour Vital Signs Date Time Temp Pulse Resp B/P (MAP) Pulse Ox O2 Delivery O2 Flow Rate FiO2 02/22/20 12:31 70 128/83 02/22/20 12:00 96.1 70 20 128/83 (98) 97 02/22/20 09:00 Room Air 02/22/20 08:20 76 137/89 02/22/20 08:20 76 137/89 02/22/20 08:00 77 02/22/20 08:00 97.2 76 20 137/89 (105) 93 02/22/20 04:42 98.0 02/22/20 04:00 97.9 75 18 122/73 (89) 96 02/22/20 04:00 74 02/22/20 00:00 78 02/22/20 00:00 98.0 85 20 112/71 (85) 96 02/21/20 22:36 96.1 02/21/20 21:00 Room Air 02/21/20 20:00 76 02/21/20 20:00 97.0 75 20 121/74 (90) 96 02/21/20 17:05 88 119/74 02/21/20 15:55 96.1 88 20 119/74 (89) 99 02/21/20 15:25 74 Intake and Output 02/21/20 02/22/20 19:00 07:00 Intake Total 990 ml Output Total 1700 ml 600 ml Balance -710 ml -600 ml Intake Oral 990 ml Output Urine Total 1700 ml 600 ml # Bowel Movements 1 1 Laboratory Tests 02/22/20 06:38: White Blood Count 6.2, Red Blood Count 4.26L, Hemoglobin 13.0L, Hematocrit 37.9L , Mean Corpuscular Volume 89, Mean Corpuscular Hemoglobin 30.5, Mean Corpuscular Hemoglobin Concent 34.3, Red Cell Distribution Width 13.3, Platelet Count 146L, Mean Platelet Volume 9.3, Neutrophils (%) (Auto) 47.2, Lymphocytes (%) (Auto) 37.3, Monocytes (%) (Auto) 10.8H, Eosinophils (%) (Auto) 3.3H, Basophils (%) (Auto) 1.4, Sodium Level 141, Potassium Level 3.6, Chloride Level 109H, Carbon Dioxide Level 23, Anion Gap 9, Blood Urea Nitrogen 9, Creatinine 0.9, Estimat Glomerular Filtration Rate > 60, Glucose Level 104, Calcium Level 8.4L, Total Bilirubin 0.9, Aspartate Amino Transf (AST/SGOT) 72H, Alanine Aminotransferase (ALT/SGPT) 105H, Alkaline Phosphatase 101, Troponin I 0.003, Total Protein 6.5, Albumin 3.0L, Globulin 3.5, Albumin/Globulin Ratio 0.9L Height (Feet): 6 Height (Inches): 1.00 Weight (Pounds): 274 Assessment/Plan Problem List: (1) Left-sided weakness ICD Codes: R53.1 - Weakness SNOMED: 111926049 (2) Generalized weakness ICD Codes: R53.1 - Weakness SNOMED: 42708810 (3) Paroxysmal atrial fibrillation ICD Codes: I48.0 - Paroxysmal atrial fibrillation SNOMED: 569189334 (4) CHF (congestive heart failure) ICD Codes: I50.9 - Heart failure, unspecified SNOMED: 69114174 (5) Extremity pain ICD Codes: M79.609 - Pain in unspecified limb SNOMED: 57052059 (6) Chest pain ICD Codes: R07.9 - Chest pain, unspecified SNOMED: 87533872 (7) ACS (acute coronary syndrome) ICD Codes: I24.9 - Acute ischemic heart disease, unspecified SNOMED: 014848163 Status: progressing Assessment/Plan: chest pain r/p acs per line maintainer afebrile chronic pain syndrome check trop stress test per line maintainer Rafaela Roy MD Feb 22, 2020 12:35
[2020-02-22 16:00] VITALS: BP 120/62
[2020-02-22 20:00] VITALS: BP 124/74
[2020-02-23] VITALS: BP 126/81
[2020-02-23 04:00] VITALS: BP 127/68
[2020-02-23] MEDS: HYDROmorphone 1mg/ml Carpuject IVP PRN ×4 (04:16→22:03)
[2020-02-23 08:00] VITALS: BP 118/63
[2020-02-23 08:08] LABS: ALANINE AMINOTRANSFERASE 95 U/L (12-78); ALBUMIN 2.9 G/DL (3.4-5.0); ALBUMIN/GLOBULIN RATIO 0.9 (1.0-2.7); ALKALINE PHOSPHATASE 124 U/L (46-116); ANION GAP 8 mmol/L (5-15); ASPARTATE AMINO TRANSFERASE 71 U/L (15-37); BILIRUBIN,TOTAL 0.8 MG/DL (0.2-1.0); BLOOD UREA NITROGEN 10 mg/dL (7-18); CALCIUM 8.6 MG/DL (8.5-10.1); CARBON DIOXIDE 23 MMOL/L (21-32); CHLORIDE 107 MMOL/L (98-107); CREATININE 0.9 MG/DL (0.55-1.30); POTASSIUM 3.7 MMOL/L (3.5-5.1); SODIUM 138 MMOL/L (136-145)
[2020-02-23 08:14] LABS: BASOPHILS % (AUTO) 1.7 % (0.0-2.0); EOSINOPHILS % (AUTO) 6.6 % (0.0-3.0); HEMATOCRIT 36.9 % (42.0-52.0); HEMOGLOBIN 12.8 G/DL (14.2-18.0); LYMPHOCYTES % (AUTO) 32.4 % (20.0-45.0); MEAN CORPUSCULAR VOLUME 86 FL (80-99); NEUTROPHILS % (AUTO) 49.4 % (45.0-75.0); PLATELET COUNT 149 K/UL (150-450); RED BLOOD COUNT 4.29 M/UL (4.70-6.10); RED CELL DISTRIBUTION WIDTH 14.6 % (11.6-14.8); WHITE BLOOD COUNT 6.1 K/UL (4.8-10.8)
[2020-02-23] MEDS: Aspirin Baby 81mg ORAL SCH (08:36)
[2020-02-23] MEDS: Eliquis 5mg tablet ORAL SCH ×2 (08:36→17:52)
--- NOTE | 2020-02-23 08:36 | General Progress Note ---
Subjective Date patient seen: Feb 23, 2020 Time patient seen: 07:30 - am Allergies: Coded Allergies: MORPHINE (Verified Allergy, Severe, 11/07/10) NITROGLYCERIN (Verified Allergy, Severe, 11/07/10) KETOROLAC (Unverified Allergy, Intermediate, 03/14/14) FISH CONTAINING PRODUCTS (Verified Allergy, Mild, 07/20/14) per patient, "it knocks me out" ACETAMINOPHEN (Unverified Allergy, Unknown, 07/19/14) CODEINE (Unverified Allergy, Unknown, 11/03/13) UNKNOWN DIPHENHYDRAMINE (Unverified Allergy, Unknown, 09/30/14) IBUPROFEN (Unverified Allergy, Unknown, 11/03/13) UNKNOWN PROCHLORPERAZINE (Unverified Allergy, Unknown, 07/19/14) GABAPENTIN (Verified Adverse Reaction, Intermediate, 07/20/14) Per patient, it makes him sweat, throws up, and "blacks out" Uncoded Allergies: IV contrast (Allergy, Unknown, 11/30/19) Subjective Constitutional: Denies: no symptoms, chills, diaphoresis, fever, malaise, weakness, other HEENT: Denies: no symptoms, eye pain, blurred vision, tearing, double vision, ear pain, ear discharge, nose pain, nose congestion, throat pain, throat swelling, mouth pain, mouth swelling, other Cardiovascular: Denies: no symptoms, chest pain, edema, irregular heart rate, lightheadedness, palpitations, syncope, other Respiratory: Denies: no symptoms, cough, orthopnea, shortness of breath, SOB with excertion, SOB at rest, sputum, stridor, wheezing, other Gastrointestinal/Abdominal: Denies: no symptoms, abdomen distended, abdominal pain, black stools, tarry stools, blood in stool, constipated, diarrhea, dif ficulty swallowing, nausea, poor appetite, poor fluid intake, rectal bleeding, vomiting, other Genitourinary: Denies: no symptoms, burning, discharge, frequency, flank pain, hematuria, incontinence, pain, urgency, other Neurologic/Psychiatric: Denies: no symptoms, anxiety, depressed, emotional problems, headache, numbness, paresthesia, pre-existing deficit, seizure, tingling, tremors, weakness, other Endocrine: Denies: no symptoms, excessive sweating, flushing, intolerance to cold, intolerance to heat, increased hunger, increased thirst, increased urine, unexplained weight gain, unexplained weight loss, other Hematologic/Lymphatic: Denies: no symptoms, anemia, easy bleeding, easy bruising, other This is a 74 y/o male seen on the tele floor of [facility]. Patient showing no signs of pain or distress. Pain has been tolerated on the Dilaudid. No new complaints at this time. Objective Last 24 Hour Vital Signs Date Time Temp Pulse Resp B/P (MAP) Pulse Ox O2 Delivery O2 Flow Rate FiO2 02/23/20 04:46 98.4 02/23/20 04:00 72 02/23/20 04:00 97.8 77 20 127/68 (87) 98 02/23/20 00:00 98.4 76 22 126/81 (96) 94 02/23/20 00:00 72 02/22/20 22:45 96.0 02/22/20 21:00 Room Air 02/22/20 21:00 73 02/22/20 20:00 97.9 75 20 124/74 (91) 96 02/22/20 17:40 77 120/62 02/22/20 16:00 96.0 77 20 120/62 (81) 98 02/22/20 16:00 72 02/22/20 12:31 70 128/83 02/22/20 12:00 96.1 70 20 128/83 (98) 97 02/22/20 12:00 71 02/22/20 09:00 Room Air Intake and Output 02/22/20 02/23/20 19:00 07:00 Intake Total 800 ml 480 ml Output Total 850 ml 600 ml Balance -50 ml -120 ml Intake Oral 800 ml 480 ml Output Urine Total 850 ml 600 ml # Bowel Movements 1 1 Laboratory Tests 02/23/20 07:25: White Blood Count 6.1, Red Blood Count 4.29L, Hemoglobin 12.8L, Hematocrit 36.9L , Mean Corpuscular Volume 86, Mean Corpuscular Hemoglobin 29.8, Mean Corpuscular Hemoglobin Concent 34.5, Red Cell Distribution Width 14.6, Platelet Count 149L, Mean Platelet Volume 10.4H, Neutrophils (%) (Auto) 49.4, Lymphocytes (%) (Auto) 32.4, Monocytes (%) (Auto) 10.0, Eosinophils (%) (Auto) 6.6H, Basophils (%) (Auto) 1.7, Sodium Level 138, Potassium Level 3.7, Chloride Level 107, Carbon Dioxide Level 23, Anion Gap 8, Blood Urea Nitrogen 10, Creatinine 0.9, Estimat Glomerular Filtration Rate > 60, Glucose Level 161H, Calcium Level 8.6, Total Bilirubin 0.8, Aspartate Amino Transf (AST/SGOT) 71H, Alanine Aminotransferase (ALT/SGPT) 95H, Alkaline Phosphatase 124H, Total Protein 6.2L, Albumin 2.9L, Globulin 3.3, Albumin/Globulin Ratio 0.9L Height (Feet): 6 Height (Inches): 1.00 Weight (Pounds): 274 Objective General Appearance: no apparent distress, alert EENT: PERRL/EOMI, TMs normal Neck: non-tender, normal alignment, supple Cardiovascular: normal rate, regular rhythm Respiratory/Chest: chest wall non-tender, lungs clear Abdomen: non tender, soft Extremities: non-tender Edema: no edema noted Arm (L), no edema noted Arm (R), no edema noted Leg (L), no edema noted Leg (R), no edema noted Pedal (L), no edema noted Pedal (R), no edema noted Generalized Neurologic: alert, oriented x 3 Skin: normal pigmentation Assessment/Plan Assessment/Plan: (1) Hemiplegia, flaccid, nondominant side (2) Lumbar post-laminectomy syndrome (3) HO TKR (total knee replacement) (4) OA (osteoarthritis) of knee (5) Thalamic pain syndrome (6) CVA (cerebral vascular accident) We will continue the patient on Dilaudid D/w Dr. Linn and he concurred. Fabiano Loza Feb 23, 2020 08:36
[2020-02-23] MEDS ORDERED: HYDROCHLOROTH12.5 MG ORAL (10:15)
[2020-02-23] MEDS ORDERED: TRAMADOL HCL50 MG ORAL (10:15)
[2020-02-23] MEDS ORDERED: CYCLOBENZAPRINE10 MG ORAL (10:15)
[2020-02-23] MEDS ORDERED: METOPROLOL TART50 M1 ORAL (10:15)
--- NOTE | 2020-02-23 10:21 | General Progress Note ---
Subjective ROS Limited/Unobtainable: No Allergies: Coded Allergies: MORPHINE (Verified Allergy, Severe, 11/07/10) NITROGLYCERIN (Verified Allergy, Severe, 11/07/10) KETOROLAC (Unverified Allergy, Intermediate, 03/14/14) FISH CONTAINING PRODUCTS (Verified Allergy, Mild, 07/20/14) per patient, "it knocks me out" ACETAMINOPHEN (Unverified Allergy, Unknown, 07/19/14) CODEINE (Unverified Allergy, Unknown, 11/03/13) UNKNOWN DIPHENHYDRAMINE (Unverified Allergy, Unknown, 09/30/14) IBUPROFEN (Unverified Allergy, Unknown, 11/03/13) UNKNOWN PROCHLORPERAZINE (Unverified Allergy, Unknown, 07/19/14) GABAPENTIN (Verified Adverse Reaction, Intermediate, 07/20/14) Per patient, it makes him sweat, throws up, and "blacks out" Uncoded Allergies: IV contrast (Allergy, Unknown, 11/30/19) Objective Last 24 Hour Vital Signs Date Time Temp Pulse Resp B/P (MAP) Pulse Ox O2 Delivery O2 Flow Rate FiO2 02/23/20 08:36 70 118/63 02/23/20 08:35 70 118/63 02/23/20 04:46 98.4 02/23/20 04:00 72 02/23/20 04:00 97.8 77 20 127/68 (87) 98 02/23/20 00:00 98.4 76 22 126/81 (96) 94 02/23/20 00:00 72 02/22/20 22:45 96.0 02/22/20 21:00 Room Air 02/22/20 21:00 73 02/22/20 20:00 97.9 75 20 124/74 (91) 96 02/22/20 17:40 77 120/62 02/22/20 16:00 96.0 77 20 120/62 (81) 98 02/22/20 16:00 72 02/22/20 12:31 70 128/83 02/22/20 12:00 96.1 70 20 128/83 (98) 97 02/22/20 12:00 71 Intake and Output 02/22/20 02/23/20 19:00 07:00 Intake Total 800 ml 480 ml Output Total 850 ml 600 ml Balance -50 ml -120 ml Intake Oral 800 ml 480 ml Output Urine Total 850 ml 600 ml # Bowel Movements 1 1 Laboratory Tests 02/23/20 07:25: White Blood Count 6.1, Red Blood Count 4.29L, Hemoglobin 12.8L, Hematocrit 36.9L , Mean Corpuscular Volume 86, Mean Corpuscular Hemoglobin 29.8, Mean Corpuscular Hemoglobin Concent 34.5, Red Cell Distribution Width 14.6, Platelet Count 149L, Mean Platelet Volume 10.4H, Neutrophils (%) (Auto) 49.4, Lymphocytes (%) (Auto) 32.4, Monocytes (%) (Auto) 10.0, Eosinophils (%) (Auto) 6.6H, Basophils (%) (Auto) 1.7, Sodium Level 138, Potassium Level 3.7, Chloride Level 107, Carbon Dioxide Level 23, Anion Gap 8, Blood Urea Nitrogen 10, Creatinine 0.9, Estimat Glomerular Filtration Rate > 60, Glucose Level 161H, Calcium Level 8.6, Total Bilirubin 0.8, Aspartate Amino Transf (AST/SGOT) 71H, Alanine Aminotransferase (ALT/SGPT) 95H, Alkaline Phosphatase 124H, Total Protein 6.2L, Albumin 2.9L, Globulin 3.3, Albumin/Globulin Ratio 0.9L Height (Feet): 6 Height (Inches): 1.00 Weight (Pounds): 274 General Appearance: no apparent distress EENT: normal ENT inspection Neck: supple Cardiovascular: normal rate Respiratory/Chest: decreased breath sounds Abdomen: normal bowel sounds, non tender, soft Extremities: non-tender Assessment/Plan Problem List: (1) Elevated LFTs ICD Codes: R79.89 - Other specified abnormal findings of blood chemistry SNOMED: 177503901, 038262620 (2) Aortic valve disorder ICD Codes: I35.9 - Nonrheumatic aortic valve disorder, unspecified SNOMED: 5362818 (3) CAD (coronary artery disease) ICD Codes: I25.10 - Athscl heart disease of [place] coronary artery w/o ang pctrs SNOMED: 63917345 (4) HTN (hypertension) ICD Codes: I10 - HTN (hypertension) SNOMED: 05977404 (5) CVA (cerebral vascular accident) ICD Codes: I63.9 - Cerebral infarction, unspecified SNOMED: 706610964 Status: progressing Assessment/Plan: fu abd us>> fatty liver repeat LFTS>>> improving fu viral and AIH serology Andrew Johnson MD Feb 23, 2020 10:20
[2020-02-23 12:00] VITALS: BP 120/62
--- NOTE | 2020-02-23 12:33 | Cardiac Electrophysiology PN ---
Assessment/Plan Assessment/Plan 1. Paroxysmal atrial fibrillation, status post ablation in 2018 at [facility], currently in sinus rhythm. On Metoprolol 50 mg bid and Eliquis 2. Chest pain. Patient's CT angio at [facility] in 2018 showed noncritical coronary disease and EKG does not show any acute ischemic changes. EF of 50%. Patient refused stress test last admission last 2 admissions as he stated he is allergic to Contrast. Had resting images but not stress images as complained of CP. 3. Status post bioprosthetic aortic valve replacement in 2004. 4. Status post descending aortic aneurysm repair in June 2011. 5. Aortic root replacement in January 2013. 6. History of anemia secondary to bleeding ascending colon polyp in January 2019. 7. Abd pain. FU Dr. Alex Johnson Subjective Subjective Had resting stress test done but Stress portion cancelled for chest pain. In SR Has abdominal pain. Objective Last 24 Hour Vital Signs Date Time Temp Pulse Resp B/P (MAP) Pulse Ox O2 Delivery O2 Flow Rate FiO2 02/23/20 09:00 Room Air 02/23/20 08:36 70 118/63 02/23/20 08:35 70 118/63 02/23/20 08:00 72 02/23/20 08:00 98.3 70 18 118/63 (81) 95 02/23/20 04:46 98.4 02/23/20 04:00 72 02/23/20 04:00 97.8 77 20 127/68 (87) 98 02/23/20 00:00 98.4 76 22 126/81 (96) 94 02/23/20 00:00 72 02/22/20 22:45 96.0 02/22/20 21:00 Room Air 02/22/20 21:00 73 02/22/20 20:00 97.9 75 20 124/74 (91) 96 02/22/20 17:40 77 120/62 02/22/20 16:00 96.0 77 20 120/62 (81) 98 02/22/20 16:00 72 02/22/20 12:31 70 128/83 Intake and Output 02/22/20 02/23/20 18:59 06:59 Intake Total 800 ml 480 ml Output Total 850 ml 600 ml Balance -50 ml -120 ml Intake Oral 800 ml 480 ml Output Urine Total 850 ml 600 ml # Bowel Movements 1 1 Laboratory Tests Test 02/23/20 07:25 White Blood Count 6.1 K/UL (4.8-10.8) Red Blood Count 4.29 M/UL (4.70-6.10) L Hemoglobin 12.8 G/DL (14.2-18.0) L Hematocrit 36.9 % (42.0-52.0) L Mean Corpuscular Volume 86 FL (80-99) Mean Corpuscular Hemoglobin 29.8 PG (27.0-31.0) Mean Corpuscular Hemoglobin Concent 34.5 G/DL (32.0-36.0) Red Cell Distribution Width 14.6 % (11.6-14.8) Platelet Count 149 K/UL (150-450) L Mean Platelet Volume 10.4 FL (6.5-10.1) H Neutrophils (%) (Auto) 49.4 % (45.0-75.0) Lymphocytes (%) (Auto) 32.4 % (20.0-45.0) Monocytes (%) (Auto) 10.0 % (1.0-10.0) Eosinophils (%) (Auto) 6.6 % (0.0-3.0) H Basophils (%) (Auto) 1.7 % (0.0-2.0) Sodium Level 138 MMOL/L (136-145) Potassium Level 3.7 MMOL/L (3.5-5.1) Chloride Level 107 MMOL/L (98-107) Carbon Dioxide Level 23 MMOL/L (21-32) Anion Gap 8 mmol/L (5-15) Blood Urea Nitrogen 10 mg/dL (7-18) Creatinine 0.9 MG/DL (0.55-1.30) Estimat Glomerular Filtration Rate > 60 mL/min (>60) Glucose Level 161 MG/DL (74-106) H Calcium Level 8.6 MG/DL (8.5-10.1) Total Bilirubin 0.8 MG/DL (0.2-1.0) Aspartate Amino Transf (AST/SGOT) 71 U/L (15-37) H Alanine Aminotransferase (ALT/SGPT) 95 U/L (12-78) H Alkaline Phosphatase 124 U/L (46-116) H Total Protein 6.2 G/DL (6.4-8.2) L Albumin 2.9 G/DL (3.4-5.0) L Globulin 3.3 g/dL Albumin/Globulin Ratio 0.9 (1.0-2.7) L Objective HEAD AND NECK: Showed no JVD. LUNGS: Coarse rhonchi. CARDIOVASCULAR: Regular S1 and S2 with no gallop. ABDOMEN: Soft. EXTREMITIES: No pitting edema. Juan Carlos Orosco MD Feb 23, 2020 12:33
[2020-02-23] MEDS: HYDROcodone/Acetamin 10/325 tab ORAL PRN ×2 (12:44→20:00)
--- NOTE | 2020-02-23 15:09 | Diagnostic Imaging Report ---
Indication: chest pain Technique: The study was conducted under the supervision of a feather cutting machine feeder. Evaluation is incomplete. Per report the stress evaluation was canceled by the feather cutting machine feeder given severe chest pain. A resting study was performed utilizing 9.6 mCi of technetium 99m Myoview injected intravenously . Three plane SPECT imaging of the heart was obtained. Comparison: None Findings: Exam is only resting images were obtained. There is possible fixed defect versus attenuation artifact involving the inferolateral wall. Possibility of hibernating myocardium cannot be excluded given lack of stress imaging. IMPRESSION: Limited, incomplete exam. Stress imaging not performed. Possible fixed defect/old infarct versus attenuation artifact involving the inferolateral lateral wall. Cannot evaluate for stress-induced ischemia.
[2020-02-23 16:00] VITALS: BP 127/71
[2020-02-23 20:00] VITALS: BP 118/68
--- NOTE | 2020-02-23 20:28 | General Progress Note ---
Subjective ROS Limited/Unobtainable: Yes Allergies: Coded Allergies: MORPHINE (Verified Allergy, Severe, 11/07/10) NITROGLYCERIN (Verified Allergy, Severe, 11/07/10) KETOROLAC (Unverified Allergy, Intermediate, 03/14/14) FISH CONTAINING PRODUCTS (Verified Allergy, Mild, 07/20/14) per patient, "it knocks me out" ACETAMINOPHEN (Unverified Allergy, Unknown, 07/19/14) CODEINE (Unverified Allergy, Unknown, 11/03/13) UNKNOWN DIPHENHYDRAMINE (Unverified Allergy, Unknown, 09/30/14) IBUPROFEN (Unverified Allergy, Unknown, 11/03/13) UNKNOWN PROCHLORPERAZINE (Unverified Allergy, Unknown, 07/19/14) GABAPENTIN (Verified Adverse Reaction, Intermediate, 07/20/14) Per patient, it makes him sweat, throws up, and "blacks out" Uncoded Allergies: IV contrast (Allergy, Unknown, 11/30/19) Objective Last 24 Hour Vital Signs Date Time Temp Pulse Resp B/P (MAP) Pulse Ox O2 Delivery O2 Flow Rate FiO2 02/23/20 17:52 81 127/71 02/23/20 16:00 98.1 81 18 127/71 (89) 98 02/23/20 16:00 74 02/23/20 12:43 79 120/74 02/23/20 12:00 71 02/23/20 12:00 97.4 77 18 120/62 (81) 96 02/23/20 09:00 Room Air 02/23/20 08:36 70 118/63 02/23/20 08:35 70 118/63 02/23/20 08:00 72 02/23/20 08:00 98.3 70 18 118/63 (81) 95 02/23/20 04:46 98.4 02/23/20 04:00 72 02/23/20 04:00 97.8 77 20 127/68 (87) 98 02/23/20 00:00 98.4 76 22 126/81 (96) 94 02/23/20 00:00 72 02/22/20 22:45 96.0 02/22/20 21:00 Room Air 02/22/20 21:00 73 Intake and Output 02/22/20 02/23/20 19:00 07:00 Intake Total 800 ml 480 ml Output Total 850 ml 600 ml Balance -50 ml -120 ml Intake Oral 800 ml 480 ml Output Urine Total 850 ml 600 ml # Bowel Movements 1 1 Laboratory Tests 02/23/20 07:25: White Blood Count 6.1, Red Blood Count 4.29L, Hemoglobin 12.8L, Hematocrit 36.9L , Mean Corpuscular Volume 86, Mean Corpuscular Hemoglobin 29.8, Mean Corpuscular Hemoglobin Concent 34.5, Red Cell Distribution Width 14.6, Platelet Count 149L, Mean Platelet Volume 10.4H, Neutrophils (%) (Auto) 49.4, Lymphocytes (%) (Auto) 32.4, Monocytes (%) (Auto) 10.0, Eosinophils (%) (Auto) 6.6H, Basophils (%) (Auto) 1.7, Sodium Level 138, Potassium Level 3.7, Chloride Level 107, Carbon Dioxide Level 23, Anion Gap 8, Blood Urea Nitrogen 10, Creatinine 0.9, Estimat Glomerular Filtration Rate > 60, Glucose Level 161H, Calcium Level 8.6, Total Bilirubin 0.8, Aspartate Amino Transf (AST/SGOT) 71H, Alanine Aminotransferase (ALT/SGPT) 95H, Alkaline Phosphatase 124H, Total Protein 6.2L, Albumin 2.9L, Globulin 3.3, Albumin/Globulin Ratio 0.9L Height (Feet): 6 Height (Inches): 1.00 Weight (Pounds): 274 Assessment/Plan Problem List: (1) Left-sided weakness ICD Codes: R53.1 - Weakness SNOMED: 290792940 (2) Generalized weakness ICD Codes: R53.1 - Weakness SNOMED: 94159360 (3) Paroxysmal atrial fibrillation ICD Codes: I48.0 - Paroxysmal atrial fibrillation SNOMED: 577616953 (4) CHF (congestive heart failure) ICD Codes: I50.9 - Heart failure, unspecified SNOMED: 18035021 (5) Extremity pain ICD Codes: M79.609 - Pain in unspecified limb SNOMED: 66706760 (6) Chest pain ICD Codes: R07.9 - Chest pain, unspecified SNOMED: 63907650 (7) ACS (acute coronary syndrome) ICD Codes: I24.9 - Acute ischemic heart disease, unspecified SNOMED: 585261258 Assessment/Plan: 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
[2020-02-24] VITALS: BP 127/69
[2020-02-24] MEDS: HYDROmorphone 1mg/ml Carpuject IVP PRN ×4 (03:47→21:23)
[2020-02-24 04:00] VITALS: BP 119/78
[2020-02-24 07:01] LABS: BASOPHILS % (AUTO) 1.7 % (0.0-2.0); HEMATOCRIT 36.9 % (42.0-52.0); HEMOGLOBIN 12.5 G/DL (14.2-18.0); LYMPHOCYTES % (AUTO) 36.2 % (20.0-45.0); MEAN CORPUSCULAR VOLUME 89 FL (80-99); NEUTROPHILS % (AUTO) 43.1 % (45.0-75.0); PLATELET COUNT 135 K/UL (150-450); RED BLOOD COUNT 4.15 M/UL (4.70-6.10); RED CELL DISTRIBUTION WIDTH 13.7 % (11.6-14.8); WHITE BLOOD COUNT 6.6 K/UL (4.8-10.8)
[2020-02-24 07:16] LABS: ALANINE AMINOTRANSFERASE 91 U/L (12-78); ALBUMIN/GLOBULIN RATIO 0.9 (1.0-2.7); ALKALINE PHOSPHATASE 126 U/L (46-116); ANION GAP 7 mmol/L (5-15); ASPARTATE AMINO TRANSFERASE 54 U/L (15-37); BILIRUBIN,TOTAL 0.7 MG/DL (0.2-1.0); BLOOD UREA NITROGEN 11 mg/dL (7-18); CALCIUM 8.6 MG/DL (8.5-10.1); CARBON DIOXIDE 25 MMOL/L (21-32); CHLORIDE 108 MMOL/L (98-107); CREATININE 0.9 MG/DL (0.55-1.30); POTASSIUM 3.8 MMOL/L (3.5-5.1); SODIUM 140 MMOL/L (136-145)
[2020-02-24 08:00] VITALS: BP 144/80
--- NOTE | 2020-02-24 09:02 | General Progress Note ---
Subjective ROS Limited/Unobtainable: No Allergies: Coded Allergies: MORPHINE (Verified Allergy, Severe, 11/07/10) NITROGLYCERIN (Verified Allergy, Severe, 11/07/10) KETOROLAC (Unverified Allergy, Intermediate, 03/14/14) FISH CONTAINING PRODUCTS (Verified Allergy, Mild, 07/20/14) per patient, "it knocks me out" ACETAMINOPHEN (Unverified Allergy, Unknown, 07/19/14) CODEINE (Unverified Allergy, Unknown, 11/03/13) UNKNOWN DIPHENHYDRAMINE (Unverified Allergy, Unknown, 09/30/14) IBUPROFEN (Unverified Allergy, Unknown, 11/03/13) UNKNOWN PROCHLORPERAZINE (Unverified Allergy, Unknown, 07/19/14) GABAPENTIN (Verified Adverse Reaction, Intermediate, 07/20/14) Per patient, it makes him sweat, throws up, and "blacks out" Uncoded Allergies: IV contrast (Allergy, Unknown, 11/30/19) Objective Last 24 Hour Vital Signs Date Time Temp Pulse Resp B/P (MAP) Pulse Ox O2 Delivery O2 Flow Rate FiO2 02/24/20 04:00 66 02/24/20 04:00 97.7 67 20 119/78 (92) 98 02/24/20 00:00 97.5 67 20 127/69 (88) 98 02/23/20 21:00 Room Air 02/23/20 20:00 68 02/23/20 20:00 97.9 78 18 118/68 (85) 98 02/23/20 17:52 81 127/71 02/23/20 16:00 98.1 81 18 127/71 (89) 98 02/23/20 16:00 74 02/23/20 12:43 79 120/74 02/23/20 12:00 71 02/23/20 12:00 97.4 77 18 120/62 (81) 96 Intake and Output 02/23/20 02/24/20 19:00 07:00 Intake Total 540 ml 480 ml Output Total 400 ml 350 ml Balance 140 ml 130 ml Intake Oral 540 ml 480 ml Output Urine Total 400 ml 350 ml # Voids 2 # Bowel Movements 1 1 Laboratory Tests 02/24/20 06:20: White Blood Count 6.6, Red Blood Count 4.15L, Hemoglobin 12.5L, Hematocrit 36.9L , Mean Corpuscular Volume 89, Mean Corpuscular Hemoglobin 30.1, Mean Corpuscular Hemoglobin Concent 33.8, Red Cell Distribution Width 13.7, Platelet Count 135L, Mean Platelet Volume 8.5, Neutrophils (%) (Auto) 43.1L, Lymphocytes (%) (Auto) 36.2, Monocytes (%) (Auto) 12.0H, Eosinophils (%) (Auto) 7.0H, Basophils (%) (Auto) 1.7, Sodium Level 140, Potassium Level 3.8, Chloride Level 108H, Carbon Dioxide Level 25, Anion Gap 7, Blood Urea Nitrogen 11, Creatinine 0.9, Estimat Glomerular Filtration Rate > 60, Glucose Level 101, Calcium Level 8.6, Total Bilirubin 0.7, Aspartate Amino Transf (AST/SGOT) 54H, Alanine Aminotransferase (ALT/SGPT) 91H, Alkaline Phosphatase 126H, Total Protein 6.4, Albumin 3.0L, Globulin 3.4, Albumin/Globulin Ratio 0.9L Height (Feet): 6 Height (Inches): 1.00 Weight (Pounds): 274 General Appearance: no apparent distress EENT: normal ENT inspection Neck: supple Cardiovascular: normal rate Respiratory/Chest: decreased breath sounds Abdomen: normal bowel sounds, non tender, soft Extremities: non-tender Assessment/Plan Problem List: (1) Elevated LFTs ICD Codes: R79.89 - Other specified abnormal findings of blood chemistry SNOMED: 697047921, 337391164 (2) Aortic valve disorder ICD Codes: I35.9 - Nonrheumatic aortic valve disorder, unspecified SNOMED: 8354604 (3) CAD (coronary artery disease) ICD Codes: I25.10 - Athscl heart disease of [place] coronary artery w/o ang pctr s SNOMED: 22077898 (4) HTN (hypertension) ICD Codes: I10 - HTN (hypertension) SNOMED: 31089571 (5) CVA (cerebral vascular accident) ICD Codes: I63.9 - Cerebral infarction, unspecified SNOMED: 744829362 Assessment/Plan: fu abd us>> fatty liver repeat LFTS>>> improving fu viral and AIH serology Andrew Johnson MD Feb 24, 2020 09:02
[2020-02-24] MEDS: Aspirin Baby 81mg ORAL SCH (09:32)
[2020-02-24] MEDS: Eliquis 5mg tablet ORAL SCH ×2 (09:34→18:17)
[2020-02-24 12:00] VITALS: BP 137/76
--- NOTE | 2020-02-24 15:45 | Cardiac Electrophysiology PN ---
Assessment/Plan Assessment/Plan 1. Paroxysmal atrial fibrillation, status post ablation in 2018 at [facility], currently in sinus rhythm. On Metoprolol 50 mg bid and Eliquis 2. Chest pain. Patient's CT angio at [facility] in 2018 showed noncritical coronary disease and EKG does not show any acute ischemic changes. EF of 50%. Patient refused stress test last admission last 2 admissions as he stated he is allergic to Contrast. Had resting images but not stress images as complained of CP. Stress test as out patient if he agrees 3. Status post bioprosthetic aortic valve replacement in 2004. 4. Status post descending aortic aneurysm repair in June 2011. 5. Aortic root replacement in January 2013. 6. History of anemia secondary to bleeding ascending colon polyp in January 2019. 7. Abd pain. FU Dr. Alex Johnson and RN Subjective Subjective Had resting stress test done but Stress portion cancelled for chest pain. In SR Comfortable in NAD Objective Last 24 Hour Vital Signs Date Time Temp Pulse Resp B/P (MAP) Pulse Ox O2 Delivery O2 Flow Rate FiO2 02/24/20 12:28 69 137/76 02/24/20 12:00 97.1 69 18 137/76 (96) 98 02/24/20 12:00 66 02/24/20 09:34 68 144/60 02/24/20 09:33 68 144/60 02/24/20 09:00 Room Air 02/24/20 08:00 97.5 68 20 144/80 (101) 98 02/24/20 08:00 66 02/24/20 04:00 66 02/24/20 04:00 97.7 67 20 119/78 (92) 98 02/24/20 00:00 97.5 67 20 127/69 (88) 98 02/23/20 21:00 Room Air 02/23/20 20:00 68 02/23/20 20:00 97.9 78 18 118/68 (85) 98 02/23/20 17:52 81 127/71 02/23/20 16:00 98.1 81 18 127/71 (89) 98 02/23/20 16:00 74 Intake and Output 02/23/20 02/24/20 19:00 07:00 Intake Total 540 ml 480 ml Output Total 400 ml 350 ml Balance 140 ml 130 ml Intake Oral 540 ml 480 ml Output Urine Total 400 ml 350 ml # Voids 2 # Bowel Movements 1 1 Laboratory Tests Test 02/24/20 06:20 White Blood Count 6.6 K/UL (4.8-10.8) Red Blood Count 4.15 M/UL (4.70-6.10) L Hemoglobin 12.5 G/DL (14.2-18.0) L Hematocrit 36.9 % (42.0-52.0) L Mean Corpuscular Volume 89 FL (80-99) Mean Corpuscular Hemoglobin 30.1 PG (27.0-31.0) Mean Corpuscular Hemoglobin Concent 33.8 G/DL (32.0-36.0) Red Cell Distribution Width 13.7 % (11.6-14.8) Platelet Count 135 K/UL (150-450) L Mean Platelet Volume 8.5 FL (6.5-10.1) Neutrophils (%) (Auto) 43.1 % (45.0-75.0) L Lymphocytes (%) (Auto) 36.2 % (20.0-45.0) Monocytes (%) (Auto) 12.0 % (1.0-10.0) H Eosinophils (%) (Auto) 7.0 % (0.0-3.0) H Basophils (%) (Auto) 1.7 % (0.0-2.0) Sodium Level 140 MMOL/L (136-145) Potassium Level 3.8 MMOL/L (3.5-5.1) Chloride Level 108 MMOL/L (98-107) H Carbon Dioxide Level 25 MMOL/L (21-32) Anion Gap 7 mmol/L (5-15) Blood Urea Nitrogen 11 mg/dL (7-18) Creatinine 0.9 MG/DL (0.55-1.30) Estimat Glomerular Filtration Rate > 60 mL/min (>60) Glucose Level 101 MG/DL (74-106) Calcium Level 8.6 MG/DL (8.5-10.1) Total Bilirubin 0.7 MG/DL (0.2-1.0) Aspartate Amino Transf (AST/SGOT) 54 U/L (15-37) H Alanine Aminotransferase (ALT/SGPT) 91 U/L (12-78) H Alkaline Phosphatase 126 U/L (46-116) H Total Protein 6.4 G/DL (6.4-8.2) Albumin 3.0 G/DL (3.4-5.0) L Globulin 3.4 g/dL Albumin/Globulin Ratio 0.9 (1.0-2.7) L Objective HEAD AND NECK: Showed no JVD. LUNGS: Coarse rhonchi. CARDIOVASCULAR: Regular S1 and S2 with no gallop. ABDOMEN: Soft. EXTREMITIES: No pitting edema. Juan Carlos Orosco MD Feb 24, 2020 15:45
[2020-02-24 16:00] VITALS: BP 132/71
--- NOTE | 2020-02-24 19:38 | General Progress Note ---
Subjective ROS Limited/Unobtainable: Yes Allergies: Coded Allergies: MORPHINE (Verified Allergy, Severe, 11/07/10) NITROGLYCERIN (Verified Allergy, Severe, 11/07/10) KETOROLAC (Unverified Allergy, Intermediate, 03/14/14) FISH CONTAINING PRODUCTS (Verified Allergy, Mild, 07/20/14) per patient, "it knocks me out" ACETAMINOPHEN (Unverified Allergy, Unknown, 07/19/14) CODEINE (Unverified Allergy, Unknown, 11/03/13) UNKNOWN DIPHENHYDRAMINE (Unverified Allergy, Unknown, 09/30/14) IBUPROFEN (Unverified Allergy, Unknown, 11/03/13) UNKNOWN PROCHLORPERAZINE (Unverified Allergy, Unknown, 07/19/14) GABAPENTIN (Verified Adverse Reaction, Intermediate, 07/20/14) Per patient, it makes him sweat, throws up, and "blacks out" Uncoded Allergies: IV contrast (Allergy, Unknown, 11/30/19) Objective Last 24 Hour Vital Signs Date Time Temp Pulse Resp B/P (MAP) Pulse Ox O2 Delivery O2 Flow Rate FiO2 02/24/20 18:16 71 132/71 02/24/20 16:00 69 02/24/20 16:00 97.8 71 18 132/71 (91) 99 02/24/20 12:28 69 137/76 02/24/20 12:00 97.1 69 18 137/76 (96) 98 02/24/20 12:00 66 02/24/20 09:34 68 144/60 02/24/20 09:33 68 144/60 02/24/20 09:00 Room Air 02/24/20 08:00 97.5 68 20 144/80 (101) 98 02/24/20 08:00 66 02/24/20 04:00 66 02/24/20 04:00 97.7 67 20 119/78 (92) 98 02/24/20 00:00 97.5 67 20 127/69 (88) 98 02/23/20 21:00 Room Air 02/23/20 20:00 68 02/23/20 20:00 97.9 78 18 118/68 (85) 98 Intake and Output 02/23/20 02/24/20 19:00 07:00 Intake Total 540 ml 480 ml Output Total 400 ml 350 ml Balance 140 ml 130 ml Intake Oral 540 ml 480 ml Output Urine Total 400 ml 350 ml # Voids 2 # Bowel Movements 1 1 Laboratory Tests 02/24/20 06:20: White Blood Count 6.6, Red Blood Count 4.15L, Hemoglobin 12.5L, Hematocrit 36.9L , Mean Corpuscular Volume 89, Mean Corpuscular Hemoglobin 30.1, Mean Corpuscular Hemoglobin Concent 33.8, Red Cell Distribution Width 13.7, Platelet Count 135L, Mean Platelet Volume 8.5, Neutrophils (%) (Auto) 43.1L, Lymphocytes (%) (Auto) 36.2, Monocytes (%) (Auto) 12.0H, Eosinophils (%) (Auto) 7.0H, Basophils (%) (Auto) 1.7, Sodium Level 140, Potassium Level 3.8, Chloride Level 108H, Carbon Dioxide Level 25, Anion Gap 7, Blood Urea Nitrogen 11, Creatinine 0.9, Estimat Glomerular Filtration Rate > 60, Glucose Level 101, Calcium Level 8.6, Total Bilirubin 0.7, Aspartate Amino Transf (AST/SGOT) 54H, Alanine Aminotransferase (ALT/SGPT) 91H, Alkaline Phosphatase 126H, Total Protein 6.4, Albumin 3.0L, Globulin 3.4, Albumin/Globulin Ratio 0.9L Height (Feet): 6 Height (Inches): 1.00 Weight (Pounds): 274 Assessment/Plan Problem List: (1) Left-sided weakness ICD Codes: R53.1 - Weakness SNOMED: 529778178 (2) Generalized weakness ICD Codes: R53.1 - Weakness SNOMED: 74421487 (3) Paroxysmal atrial fibrillation ICD Codes: I48.0 - Paroxysmal atrial fibrillation SNOMED: 724750852 (4) CHF (congestive heart failure) ICD Codes: I50.9 - Heart failure, unspecified SNOMED: 77338722 (5) Extremity pain ICD Codes: M79.609 - Pain in unspecified limb SNOMED: 74862058 (6) Chest pain ICD Codes: R07.9 - Chest pain, unspecified SNOMED: 47316291 (7) ACS (acute coronary syndrome) ICD Codes: I24.9 - Acute ischemic heart disease, unspecified SNOMED: 352262178 Status: progressing Assessment/Plan: atypical cp dc planning neg trop chronic pain syndrome Rafaela Roy MD Feb 24, 2020 19:38
[2020-02-24 20:00] VITALS: BP 114/63
[2020-02-25] VITALS: BP 119/60
[2020-02-25] MEDS: HYDROcodone/Acetamin 10/325 tab ORAL PRN ×3 (00:10→17:10)
[2020-02-25] MEDS: HYDROmorphone 1mg/ml Carpuject IVP PRN ×4 (03:30→21:29)
[2020-02-25 04:00] VITALS: BP 125/64
[2020-02-25 08:00] VITALS: BP 127/70
[2020-02-25] MEDS: Eliquis 5mg tablet ORAL SCH ×2 (09:29→17:09)
[2020-02-25] MEDS: Aspirin Baby 81mg ORAL SCH (09:30)
--- NOTE | 2020-02-25 10:42 | General Progress Note ---
Subjective ROS Limited/Unobtainable: No Allergies: Coded Allergies: MORPHINE (Verified Allergy, Severe, 11/07/10) NITROGLYCERIN (Verified Allergy, Severe, 11/07/10) KETOROLAC (Unverified Allergy, Intermediate, 03/14/14) FISH CONTAINING PRODUCTS (Verified Allergy, Mild, 07/20/14) per patient, "it knocks me out" ACETAMINOPHEN (Unverified Allergy, Unknown, 07/19/14) CODEINE (Unverified Allergy, Unknown, 11/03/13) UNKNOWN DIPHENHYDRAMINE (Unverified Allergy, Unknown, 09/30/14) IBUPROFEN (Unverified Allergy, Unknown, 11/03/13) UNKNOWN PROCHLORPERAZINE (Unverified Allergy, Unknown, 07/19/14) GABAPENTIN (Verified Adverse Reaction, Intermediate, 07/20/14) Per patient, it makes him sweat, throws up, and "blacks out" Uncoded Allergies: IV contrast (Allergy, Unknown, 11/30/19) Objective Last 24 Hour Vital Signs Date Time Temp Pulse Resp B/P (MAP) Pulse Ox O2 Delivery O2 Flow Rate FiO2 02/25/20 09:30 74 127/70 02/25/20 09:29 74 127/70 02/25/20 09:00 Room Air 02/25/20 08:00 97.9 74 20 127/70 (89) 100 02/25/20 08:00 71 02/25/20 04:00 64 02/25/20 04:00 97.7 69 20 125/64 (84) 98 02/25/20 00:00 97.7 77 21 119/60 (79) 95 02/25/20 00:00 60 02/24/20 21:00 Room Air 02/24/20 20:00 98.0 74 20 114/63 (80) 96 02/24/20 20:00 74 02/24/20 18:16 71 132/71 02/24/20 16:00 69 02/24/20 16:00 97.8 71 18 132/71 (91) 99 02/24/20 12:28 69 137/76 02/24/20 12:00 97.1 69 18 137/76 (96) 98 02/24/20 12:00 66 Intake and Output 12/12/20 12/13/20 19:00 07:00 Intake Total 360 ml 800 ml Output Total 550 ml 1200 ml Balance -190 ml -400 ml Intake Oral 360 ml 800 ml Output Urine Total 550 ml 1200 ml # Voids 5 # Bowel Movements 1 Height (Feet): 6 Height (Inches): 1.00 Weight (Pounds): 274 General Appearance: no apparent distress EENT: normal ENT inspection Neck: supple Cardiovascular: normal rate Respiratory/Chest: decreased breath sounds Abdomen: normal bowel sounds, non tender, soft Extremities: non-tender Assessment/Plan Problem List: (1) Elevated LFTs ICD Codes: R79.89 - Other specified abnormal findings of blood chemistry SNOMED: 319174279, 814907648 (2) Aortic valve disorder ICD Codes: I35.9 - Nonrheumatic aortic valve disorder, unspecified SNOMED: 1246946 (3) CAD (coronary artery disease) ICD Codes: I25.10 - Athscl heart disease of [place] coronary artery w/o ang pctrs SNOMED: 35997952 (4) HTN (hypertension) ICD Codes: I10 - HTN (hypertension) SNOMED: 92743751 (5) CVA (cerebral vascular accident) ICD Codes: I63.9 - Cerebral infarction, unspecified SNOMED: 938109550 Status: progressing Assessment/Plan: fu abd us>> fatty liver repeat LFTS>>> improving fu viral and AIH serology Andrew Johnson MD Feb 25, 2020 10:42
[2020-02-25 12:00] VITALS: BP 121/71
--- NOTE | 2020-02-25 13:08 | General Progress Note ---
Subjective Date patient seen: Feb 25, 2020 Time patient seen: 12:00 - pm Allergies: Coded Allergies: MORPHINE (Verified Allergy, Severe, 11/07/10) NITROGLYCERIN (Verified Allergy, Severe, 11/07/10) KETOROLAC (Unverified Allergy, Intermediate, 03/14/14) FISH CONTAINING PRODUCTS (Verified Allergy, Mild, 07/20/14) per patient, "it knocks me out" ACETAMINOPHEN (Unverified Allergy, Unknown, 07/19/14) CODEINE (Unverified Allergy, Unknown, 11/03/13) UNKNOWN DIPHENHYDRAMINE (Unverified Allergy, Unknown, 09/30/14) IBUPROFEN (Unverified Allergy, Unknown, 11/03/13) UNKNOWN PROCHLORPERAZINE (Unverified Allergy, Unknown, 07/19/14) GABAPENTIN (Verified Adverse Reaction, Intermediate, 07/20/14) Per patient, it makes him sweat, throws up, and "blacks out" Uncoded Allergies: IV contrast (Allergy, Unknown, 11/30/19) Subjective Constitutional: Denies: no symptoms, chills, diaphoresis, fever, malaise, weakness, other HEENT: Denies: no symptoms, eye pain, blurred vision, tearing, double vision, ear pain, ear discharge, nose pain, nose congestion, throat pain, throat swelling, mouth pain, mouth swelling, other Cardiovascular: Denies: no symptoms, chest pain, edema, irregular heart rate, lightheadedness, palpitations, syncope, other Respiratory: Denies: no symptoms, cough, orthopnea, shortness of breath, SOB with excertion, SOB at rest, sputum, stridor, wheezing, other Gastrointestinal/Abdominal: Denies: no symptoms, abdomen distended, abdominal pain, black stools, tarry stools, blood in stool, constipated, diarrhea, dif ficulty swallowing, nausea, poor appetite, poor fluid intake, rectal bleeding, vomiting, other Genitourinary: Denies: no symptoms, burning, discharge, frequency, flank pain, hematuria, incontinence, pain, urgency, other Neurologic/Psychiatric: Denies: no symptoms, anxiety, depressed, emotional problems, headache, numbness, paresthesia, pre-existing deficit, seizure, tingling, tremors, weakness, other Endocrine: Denies: no symptoms, excessive sweating, flushing, intolerance to cold, intolerance to heat, increased hunger, increased thirst, increased urine, unexplained weight gain, unexplained weight loss, other Hematologic/Lymphatic: Denies: no symptoms, anemia, easy bleeding, easy bruising, other This is a 74 y/o male seen on the tele floor of [facility]. Patient laying in bed and showing no signs of pain or distress on his phone. Still c/o pain and getting the Dilaudid and [place] as needed. D/w nurse at bedside. Objective Last 24 Hour Vital Signs Date Time Temp Pulse Resp B/P (MAP) Pulse Ox O2 Delivery O2 Flow Rate FiO2 02/25/20 12:57 70 121/71 02/25/20 12:00 96.3 70 20 121/71 (88) 97 02/25/20 09:30 74 127/70 02/25/20 09:29 74 127/70 02/25/20 09:00 Room Air 02/25/20 08:00 97.9 74 20 127/70 (89) 100 02/25/20 08:00 71 02/25/20 04:00 64 02/25/20 04:00 97.7 69 20 125/64 (84) 98 02/25/20 00:00 97.7 77 21 119/60 (79) 95 02/25/20 00:00 60 02/24/20 21:00 Room Air 02/24/20 20:00 98.0 74 20 114/63 (80) 96 02/24/20 20:00 74 02/24/20 18:16 71 132/71 02/24/20 16:00 69 02/24/20 16:00 97.8 71 18 132/71 (91) 99 Intake and Output 02/24/20 02/25/20 19:00 07:00 Intake Total 360 ml 800 ml Output Total 550 ml 1200 ml Balance -190 ml -400 ml Intake Oral 360 ml 800 ml Output Urine Total 550 ml 1200 ml # Voids 5 # Bowel Movements 1 Height (Feet): 6 Height (Inches): 1.00 Weight (Pounds): 274 Objective General Appearance: no apparent distress, alert EENT: PERRL/EOMI, TMs normal Neck: non-tender, normal alignment, supple Cardiovascular: normal rate, regular rhythm Respiratory/Chest: chest wall non-tender, lungs clear Abdomen: non tender, soft Extremities: non-tender Edema: no edema noted Arm (L), no edema noted Arm (R), no edema noted Leg (L), no edema noted Leg (R), no edema noted Pedal (L), no edema noted Pedal (R), no edema noted Generalized Neurologic: alert, oriented x 3 Skin: normal pigmentation Assessment/Plan Assessment/Plan: (1) Hemiplegia, flaccid, nondominant side (2) Lumbar post-laminectomy syndrome (3) HO TKR (total knee replacement) (4) OA (osteoarthritis) of knee (5) Thalamic pain syndrome (6) CVA (cerebral vascular accident) We will continue the patient on Dilaudid and [place] D/w Dr. Linn and he concurred. Fabiano Loza Feb 25, 2020 13:08
--- NOTE | 2020-02-25 15:29 | Cardiac Electrophysiology PN ---
Assessment/Plan Assessment/Plan 1. Paroxysmal atrial fibrillation, status post ablation in 2018 at [facility], currently in sinus rhythm. On Metoprolol 50 mg bid and Eliquis 2. Chest pain. Patient's CT angio at [facility] in 2018 showed noncritical coronary disease and EKG does not show any acute ischemic changes. EF of 50%. Patient refused stress test last admission last 2 admissions as he stated he is allergic to Contrast. Had resting images but not stress images as complained of CP. Stress test as out patient if he agrees 3. Status post bioprosthetic aortic valve replacement in 2004. 4. Status post descending aortic aneurysm repair in June 2011. 5. Aortic root replacement in January 2013. 6. History of anemia secondary to bleeding ascending colon polyp in January 2019. 7. Abd pain. FU Dr. Alex MATOS RN Subjective Subjective Had resting stress test done but Stress portion cancelled for chest pain. In SR with first degree AVB Comfortable in NAD Objective Last 24 Hour Vital Signs Date Time Temp Pulse Resp B/P (MAP) Pulse Ox O2 Delivery O2 Flow Rate FiO2 02/25/20 12:57 70 121/71 02/25/20 12:00 96.3 70 20 121/71 (88) 97 02/25/20 12:00 68 02/25/20 09:30 74 127/70 02/25/20 09:29 74 127/70 02/25/20 09:00 Room Air 02/25/20 08:00 97.9 74 20 127/70 (89) 100 02/25/20 08:00 71 02/25/20 04:00 64 02/25/20 04:00 97.7 69 20 125/64 (84) 98 02/25/20 00:00 97.7 77 21 119/60 (79) 95 02/25/20 00:00 60 02/24/20 21:00 Room Air 02/24/20 20:00 98.0 74 20 114/63 (80) 96 02/24/20 20:00 74 02/24/20 18:16 71 132/71 02/24/20 16:00 69 02/24/20 16:00 97.8 71 18 132/71 (91) 99 Intake and Output 02/24/20 02/25/20 19:00 07:00 Intake Total 360 ml 800 ml Output Total 550 ml 1200 ml Balance -190 ml -400 ml Intake Oral 360 ml 800 ml Output Urine Total 550 ml 1200 ml # Voids 5 # Bowel Movements 1 Objective HEAD AND NECK: Showed no JVD. LUNGS: Coarse rhonchi. CARDIOVASCULAR: Regular S1 and S2 with no gallop. ABDOMEN: Soft. EXTREMITIES: No pitting edema. Juan Carlos Orosco MD Feb 25, 2020 15:29
[2020-02-25 16:00] VITALS: BP 127/78
[2020-02-25 20:00] VITALS: BP 130/77
--- NOTE | 2020-02-25 22:25 | General Progress Note ---
Subjective ROS Limited/Unobtainable: Yes Allergies: Coded Allergies: MORPHINE (Verified Allergy, Severe, 11/07/10) NITROGLYCERIN (Verified Allergy, Severe, 11/07/10) KETOROLAC (Unverified Allergy, Intermediate, 03/14/14) FISH CONTAINING PRODUCTS (Verified Allergy, Mild, 07/20/14) per patient, "it knocks me out" ACETAMINOPHEN (Unverified Allergy, Unknown, 07/19/14) CODEINE (Unverified Allergy, Unknown, 11/03/13) UNKNOWN DIPHENHYDRAMINE (Unverified Allergy, Unknown, 09/30/14) IBUPROFEN (Unverified Allergy, Unknown, 11/03/13) UNKNOWN PROCHLORPERAZINE (Unverified Allergy, Unknown, 07/19/14) GABAPENTIN (Verified Adverse Reaction, Intermediate, 07/20/14) Per patient, it makes him sweat, throws up, and "blacks out" Uncoded Allergies: IV contrast (Allergy, Unknown, 11/30/19) Objective Last 24 Hour Vital Signs Date Time Temp Pulse Resp B/P (MAP) Pulse Ox O2 Delivery O2 Flow Rate FiO2 02/25/20 21:59 98.0 02/25/20 20:00 98.0 68 20 130/77 (94) 93 02/25/20 17:09 69 127/78 02/25/20 16:00 97.3 69 20 127/78 (94) 98 02/25/20 12:57 70 121/71 02/25/20 12:00 96.3 70 20 121/71 (88) 97 02/25/20 12:00 68 02/25/20 09:30 74 127/70 02/25/20 09:29 74 127/70 02/25/20 09:00 Room Air 02/25/20 08:00 97.9 74 20 127/70 (89) 100 02/25/20 08:00 71 02/25/20 04:00 64 02/25/20 04:00 97.7 69 20 125/64 (84) 98 02/25/20 00:00 97.7 77 21 119/60 (79) 95 02/25/20 00:00 60 Intake and Output 02/24/20 02/25/20 19:00 07:00 Intake Total 360 ml 800 ml Output Total 550 ml 1200 ml Balance -190 ml -400 ml Intake Oral 360 ml 800 ml Output Urine Total 550 ml 1200 ml # Voids 5 # Bowel Movements 1 Height (Feet): 6 Height (Inches): 1.00 Weight (Pounds): 274 Assessment/Plan Problem List: (1) Left-sided weakness ICD Codes: R53.1 - Weakness SNOMED: 714366031 (2) Generalized weakness ICD Codes: R53.1 - Weakness SNOMED: 43319411 (3) Paroxysmal atrial fibrillation ICD Codes: I48.0 - Paroxysmal atrial fibrillation SNOMED: 175129392 (4) CHF (congestive heart failure) ICD Codes: I50.9 - Heart failure, unspecified SNOMED: 87846345 (5) Extremity pain ICD Codes: M79.609 - Pain in unspecified limb SNOMED: 22884888 (6) Chest pain ICD Codes: R07.9 - Chest pain, unspecified SNOMED: 83648221 (7) ACS (acute coronary syndrome) ICD Codes: I24.9 - Acute ischemic heart disease, unspecified SNOMED: 313915675 Status: progressing Assessment/Plan: dc in am afebrile no acute events chronic pain syndrome Rafaela Roy MD Feb 25, 2020 22:25
[2020-02-26] VITALS: BP 129/74
[2020-02-26] MEDS: HYDROcodone/Acetamin 10/325 tab ORAL PRN (00:24)
[2020-02-26] MEDS: HYDROmorphone 1mg/ml Carpuject IVP PRN ×2 (03:33→09:30)
[2020-02-26 03:39] VITALS: BP 117/80
[2020-02-26 07:01] LABS: BASOPHILS % (AUTO) 1.2 % (0.0-2.0); EOSINOPHILS % (AUTO) 6.5 % (0.0-3.0); HEMOGLOBIN 12.6 G/DL (14.2-18.0); LYMPHOCYTES % (AUTO) 33.1 % (20.0-45.0); MEAN CORPUSCULAR VOLUME 90 FL (80-99); MONOCYTES % (AUTO) 11.1 % (1.0-10.0); NEUTROPHILS % (AUTO) 48.2 % (45.0-75.0); PLATELET COUNT 141 K/UL (150-450); RED BLOOD COUNT 4.11 M/UL (4.70-6.10); RED CELL DISTRIBUTION WIDTH 13.7 % (11.6-14.8)
[2020-02-26 08:00] VITALS: BP 130/72
[2020-02-26] MEDS: Aspirin Baby 81mg ORAL SCH (08:14)
[2020-02-26] MEDS: Eliquis 5mg tablet ORAL SCH (08:14)
[2020-02-26 08:15] VITALS: BP 130/72
[2020-02-26 08:16] LABS: ALANINE AMINOTRANSFERASE 85 U/L (12-78); ALBUMIN/GLOBULIN RATIO 0.9 (1.0-2.7); ALKALINE PHOSPHATASE 136 U/L (46-116); ANION GAP 9 mmol/L (5-15); ASPARTATE AMINO TRANSFERASE 52 U/L (15-37); BILIRUBIN,TOTAL 0.7 MG/DL (0.2-1.0); BLOOD UREA NITROGEN 14 mg/dL (7-18); CALCIUM 8.9 MG/DL (8.5-10.1); CARBON DIOXIDE 25 MMOL/L (21-32); CHLORIDE 106 MMOL/L (98-107); CREATININE 0.9 MG/DL (0.55-1.30); SODIUM 140 MMOL/L (136-145)
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
--- NOTE | 2020-02-26 19:28 | General Progress Note ---
Subjective Allergies: Coded Allergies: MORPHINE (Verified Allergy, Severe, 11/07/10) NITROGLYCERIN (Verified Allergy, Severe, 11/07/10) KETOROLAC (Unverified Allergy, Intermediate, 03/14/14) FISH CONTAINING PRODUCTS (Verified Allergy, Mild, 07/20/14) per patient, "it knocks me out" ACETAMINOPHEN (Unverified Allergy, Unknown, 07/19/14) CODEINE (Unverified Allergy, Unknown, 11/03/13) UNKNOWN DIPHENHYDRAMINE (Unverified Allergy, Unknown, 09/30/14) IBUPROFEN (Unverified Allergy, Unknown, 11/03/13) UNKNOWN PROCHLORPERAZINE (Unverified Allergy, Unknown, 07/19/14) GABAPENTIN (Verified Adverse Reaction, Intermediate, 07/20/14) Per patient, it makes him sweat, throws up, and "blacks out" Uncoded Allergies: IV contrast (Allergy, Unknown, 11/30/19) Subjective Better today some shoulder pain eating OK (+) BM Objective Last 24 Hour Vital Signs Date Time Temp Pulse Resp B/P (MAP) Pulse Ox O2 Delivery O2 Flow Rate FiO2 02/26/20 10:00 98.3 02/26/20 09:00 Room Air 02/26/20 08:15 74 130/72 02/26/20 08:14 74 130/72 02/26/20 08:00 97.9 74 18 130/72 (91) 96 02/26/20 03:39 98.3 64 18 117/80 (92) 97 02/26/20 00:54 97.9 02/26/20 00:00 97.9 69 17 129/74 (92) 96 02/25/20 21:59 98.0 02/25/20 21:00 Room Air 02/25/20 20:00 98.0 68 20 130/77 (94) 93 Intake and Output 02/25/20 02/26/20 19:00 07:00 Intake Total 600 ml 300 ml Balance 600 ml 300 ml Intake Oral 600 ml 300 ml # Voids 3 Laboratory Tests 02/26/20 05:00: White Blood Count 8.0, Red Blood Count 4.11L, Hemoglobin 12.6L, Hematocrit 37.0L , Mean Corpuscular Volume 90, Mean Corpuscular Hemoglobin 30.6, Mean Corpuscular Hemoglobin Concent 34.0, Red Cell Distribution Width 13.7, Platelet Count 141L, Mean Platelet Volume 8.4, Neutrophils (%) (Auto) 48.2, Lymphocytes (%) (Auto) 33.1, Monocytes (%) (Auto) 11.1H, Eosinophils (%) (Auto) 6.5H, Basophils (%) (Auto) 1.2, Sodium Level 140, Potassium Level 4.0, Chloride Level 106, Carbon Dioxide Level 25, Anion Gap 9, Blood Urea Nitrogen 14, Creatinine 0.9, Estimat Glomerular Filtration Rate > 60, Glucose Level 98, Calcium Level 8.9, Total Bilirubin 0.7, Aspartate Amino Transf (AST/SGOT) 52H, Alanine Aminotransferase (ALT/SGPT) 85H, Alkaline Phosphatase 136H, Total Protein 6.5, Albumin 3.0L, Globulin 3.5, Albumin/Globulin Ratio 0.9L Height (Feet): 6 Height (Inches): 1.00 Weight (Pounds): 274 Objective WDWN NCAT supple CTA RR abd soft NT ND no edema Assessment/Plan Status: progressing Assessment/Plan: Assessment/Plan Problem List: (1) Elevated LFTs ICD Codes: R79.89 - Other specified abnormal findings of blood chemistry SNOMED: 451090243, 437489883 (2) Aortic valve disorder ICD Codes: I35.9 - Nonrheumatic aortic valve disorder, unspecified SNOMED: 3665410 (3) CAD (coronary artery disease) ICD Codes: I25.10 - Athscl heart disease of [place] coronary artery w/o ang pctrs SNOMED: 17996611 (4) HTN (hypertension) ICD Codes: I10 - HTN (hypertension) SNOMED: 91462771 (5) CVA (cerebral vascular accident) ICD Codes: I63.9 - Cerebral infarction, unspecified SNOMED: 576777402 Status: progressing Assessment/Plan: fu abd us>> fatty liver repeat LFTS>>> improving fu viral and AIH serology Chris Murphy MD Feb 26, 2020 19:28
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
== END 2020-02-26 12:30 | disposition home health service (06) | DRG 309 ==
LOC: EMR 15:51 → 2E 15:55 → EDBEDREQ 16:59 → 2E 22:56 → 3E 02-25 15:48
DX: I48.0 Paroxysmal atrial fibrillation (principal); I69.354 Hemiplegia and hemiparesis following cerebral infarction affecting left non-dominant side; K76.0 Fatty (change of) liver, not elsewhere classified; I35.9 Nonrheumatic aortic valve disorder, unspecified; I10 Essential (primary) hypertension; G89.0 Central pain syndrome; Z88.6 Allergy status to analgesic agent; Z88.8 Allergy status to other drugs, medicaments and biological substances; E11.9 Type 2 diabetes mellitus without complications; Z79.01 Long term (current) use of anticoagulants; Z79.82 Long term (current) use of aspirin; Z96.659 Presence of unspecified artificial knee joint; R07.89 Other chest pain; Z95.4 Presence of other heart-valve replacement; M17.10 Unilateral primary osteoarthritis, unspecified knee; R10.9 Unspecified abdominal pain
CPT/HCPCS: 36415; 71045; 76700; 78451; 80053; 82248; 83540; 83550; 83880; 84484; 85025; 86039; 86235; 86705; 86709; 86803; 87340; 93005; 93017; 93306; 96374; 96376; 99285